=== PATIENT | male | born 1995 | race Caucasian/White ===

== ENCOUNTER 2022-11-25 06:27 | Outpatient (OUT) | payer OTHER, SELFPAY ==
[2022-11-25 06:56] LABS: Albumin Level 3.9 g/dL (3.4-5.0); Anion Gap 12.5; BUN Creatinine Ratio 15.7; Calcium 8.8 mg/dL (8.5-10.1); Carbon Dioxide 32.9 mmol/L (21.0-32.0); Chloride 96 mmol/L (98-107); Estimated GFR (African America >60 (>=60); Estimated GFR (Non-African Ame >60 (>=60); Glucose 138 mg/dL (74-106); Magnesium 1.1 mg/dL (1.8-2.4); Sodium 139 mmol/L (136-145)
[2022-11-25 14:24] LABS: Potassium 2.4 mmol/L (3.5-5.1)
== END 2022-11-25 06:28 | disposition home or self-care (01) ==
LOC: LAB 06:31
PROVIDERS: PCP Internal Medicine; Visit Provider Internal Medicine
DX: E83.42 Hypomagnesemia (principal); E87.6 Hypokalemia
CPT/HCPCS: 36415; 80069; 83735

== ENCOUNTER 2023-06-15 20:56 | Emergency (ER) | payer OTHER, SELFPAY ==
[2023-06-15 20:59] VITALS: BP 148/97; PULSE 87; RESP 18; TEMP 36.6; O2SAT 95; BMI 33.2
--- NOTE | 2023-06-15 22:01 | XR_ITS ---
The [address] [address] Patient Name: SOFIE MENDOZA MRN: [id number] date: 1995 Sex: M Assigned Patient Location: ER Current Patient Location: ER Accession/Order Number: [id number] Exam Date: 06/15/2023 20:31 Report Date: 06/15/2023 22:48 At the request of: JEREMIAH MARKER Procedure: XR shoulder RT min 2V Exam: Radiographs: XR cervical spine 2-3V, XR shoulder RT min 2V Reason for exam: neck pain Comparison: None XR/XR shoulder RT min 2V IMPRESSION: Unremarkable right shoulder radiographs. No radiographically evident cervical spine fractures or malalignment. Preserved intervertebral disc heights. Remainder unremarkable. Electronically authenticated by: JOSE MACIAS Date: 06/15/2023 22:48
--- NOTE | 2023-06-15 22:01 | XR_ITS ---
[address] [address] Patient Name: SOFIE MENDOZA MRN: [id number] date: 1995 Sex: M Assigned Patient Location: ER Current Patient Location: ER Accession/Order Number: [id number] Exam Date: 06/15/2023 20:31 Report Date: 06/15/2023 22:48 At the request of: JEREMIAH MARKER Procedure: XR cervical spine 2-3V Exam: Radiographs: XR cervical spine 2-3V, XR shoulder RT min 2V Reason for exam: neck pain Comparison: None XR/XR cervical spine 2-3V IMPRESSION: Unremarkable right shoulder radiographs. No radiographically evident cervical spine fractures or malalignment. Preserved intervertebral disc heights. Remainder unremarkable. Electronically authenticated by: JOSE MACIAS Date: 06/15/2023 22:48
[2023-06-15] MEDS: ORPHENADRINE 60 MG/ 2 ML VIAL IM (22:21)
[2023-06-15] MEDS: KETOROLAC TROMETHAMINE 60 MG/2 ML VIAL IM (22:21)
--- NOTE | 2023-06-15 22:49 | ED.GENADUL1 ---
HPI - General Adult General Chief complaint: Extremity Problem, Nontraumatic Stated complaint: Upper Pain Time Seen by Provider: 06/15/23 21:17 Source: patient Mode of arrival: walk-in Limitations: no limitations History of Present Illness HPI narrative: This 27-year-old male who is right-hand dominant and works at a local [employer] presents for evaluation of right upper anterior neck and shoulder area pain. He has had similar pain in the past. He denies any injury. He has no weakness numbness or tingling in the right upper extremity. He has full range of motion. Symptoms have been present for a while but are worse today. He denies any neck pain or stiffness. He has not had any fever. He has no chest pain or shortness of breath. He points to the acromioclavicular area as area of greatest pain and states the pain he ate from this area up into his lower anterior neck area. Related Data Home Medications Medication Instructions Recorded Confirmed amiloride 5 mg tablet mg 06/15/23 magnesium chloride 70 mg mg PO 06/15/23 (magnesium chloride) tablet,delayed release potassium chloride 20 mEq meq PO 06/15/23 tablet,extended release Allergies Allergy/AdvReac Type Severity Reaction Status Date / Time No Known Drug Allergies Allergy Verified 06/15/23 21:03 Review of Systems ROS Status of ROS 10 or more systems reviewed and unremarkable except as noted in history and below [facility] Social History Smoking status: Never smoker Exam Narrative Exam Narrative: Nurses note and vital signs reviewed and patient is not hypoxic. Blood pressure is mildly elevated at 148/97 General: The patient appears well and in no apparent distress. Patient is resting comfortably on cart. Skin: Warm, dry, no pallor noted. There is no rash noted. Head: Normocephalic, atraumatic Eye: Normal conjunctiva, no drainage, EOMI. PERRL Ears, Nose, Mouth, and Throat: oral mucosa is moist. Neck: Supple, no meningeal signs, tenderness in right upper chest wall and AC joint area without crepitus or bony abnormality, no pulsatile neck masses or lymphadenopathy Cardiovascular: Regular Rate and Rhythm S1S2, pulses are brisk and equal bilaterally Respiratory: Patient is in no distress, no accessory muscle use, lungs are clear to auscultation, no wheezing, rales or rhonchi Back: non-tender, no CVA tenderness bilaterally to percussion. GI: Normal bowel sounds, no tenderness to palpation, no masses appreciated. No rebound, guarding, or rigidity noted. 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 strength is intact, able to approximate thumb and all fingers Psychiatric: Cooperative Constitutional Vital Signs, click to edit/add: Last Vital Signs Temp 98 F 06/15/23 20:59 Pulse 87 06/15/23 20:59 Resp 18 06/15/23 20:59 BP 148/97 H 06/15/23 20:59 Pulse Ox 95 06/15/23 20:59 O2 Del Method Room Air 06/15/23 20:59 Course Vital Signs Vital signs: Vital Signs Temperature 98 F 06/15/23 20:59 Pulse Rate 87 06/15/23 20:59 Respiratory Rate 18 06/15/23 20:59 Blood Pressure 148/97 H 06/15/23 20:59 Pulse Oximetry 95 06/15/23 20:59 Oxygen Delivery Method Room Air 06/15/23 20:59 Temperature 98 F 06/15/23 20:59 Pulse Rate 87 06/15/23 20:59 Respiratory Rate 18 06/15/23 20:59 Blood Pressure 148/97 H 06/15/23 20:59 Pulse Oximetry 95 06/15/23 20:59 Oxygen Delivery Method Room Air 06/15/23 20:59 Medical Decision Making MDM Narrative Medical decision making narrative: This 27-year-old male who is right-hand dominant presents for evaluation of pain in his right acromioclavicular area, anterior shoulder and lower neck area. He has had similar pain in the past. The pain has been present for a while but became worse today. He denies any injury. He has no neurologic symptoms including weakness numbness or tingling associated with this discomfort. He is medicated in emergency department with IM Toradol and IM Norflex and is feeling better.. X-rays of the cervical spine and right shoulder area were ordered and are negative for acute findings. He will be discharged home with Rx for Flexeril and ibuprofen and requests a note for work. Medical Records Medical records narrative: [facility] [address] [place] [address] XRay Report Signed Patient: SOFIE MENDOZA MR#: [id number] : 1995 Acct:[id number] Age/Sex: 27 / M ADM Date: 06/15/23 Loc: ER Attending Dr: Ordering Physician: Mary Landrum Date of Service: 06/15/23 Procedure(s): XR cervical spine 2-3V Accession Number(s): [id number] cc: Shaikh Earl Alvarez; Mary Marker~ [facility] [place] [id number] Patient Name: SOFIE MENDOZA MRN: [facility]:[id number] date: 1995 Sex: M Assigned Patient Location: ER Current Patient Location: ER Accession/Order Number: [id number] Exam Date: 06/15/2023 20:31 Report Date: 06/15/2023 22:48 At the request of: MARY MARKER Procedure: XR cervical spine 2-3V Exam: Radiographs: XR cervical spine 2-3V, XR shoulder RT min 2V Reason for exam: neck pain Comparison: None XR/XR cervical spine 2-3V IMPRESSION: Unremarkable right shoulder radiographs. No radiographically evident cervical spine fractures or malalignment. Preserved intervertebral disc heights. Remainder unremarkable. Electronically authenticated by: JOSE MACIAS Date: 06/15/2023 22:48 [place] [address] XRay Report Signed Patient: SOFIE MENDOZA MR#: [id number] : 1995 Acct:[id number] Age/Sex: 27 / M ADM Date: 06/15/23 Loc: ER Attending Dr: Ordering Physician: Mary Landrum Date of Service: 06/15/23 Procedure(s): XR shoulder RT min 2V Accession Number(s): [id number] cc: Shaikh Earl Alvarez; Mary Marker~ [facility] [place] [id number] Patient Name: SOFIE MENDOZA MRN: [id number] date: 1995 Sex: M Assigned Patient Location: ER Current Patient Location: ER Accession/Order Number: [id number] Exam Date: 06/15/2023 20:31 Report Date: 06/15/2023 22:48 At the request of: MARY MARKER Procedure: XR shoulder RT min 2V Exam: Radiographs: XR cervical spine 2-3V, XR shoulder RT min 2V Reason for exam: neck pain Comparison: None XR/XR shoulder RT min 2V IMPRESSION: Unremarkable right shoulder radiographs. No radiographically evident cervical spine fractures or malalignment. Preserved intervertebral disc heights. Remainder unremarkable. Discharge Plan Discharge Chief Complaint: Extremity Problem, Nontraumatic Clinical Impression: Muscle strain of shoulder region Patient Disposition: Home, Self-Care Time of Disposition Decision: 23:09 Condition: Good Prescriptions / Home Meds: No Action amiloride 5 mg tablet potassium chloride 20 mEq tablet extended release PO magnesium chloride 70 mg tablet,delayed release (DR/EC) PO Instructions: Muscle Strain (ED), Rotator Cuff Injury Exercises (DC) Stand Alone Forms: Portal Instructions Referrals: Shaikh Alvarez MD [Primary Care Provider] - 1 week
== END 2023-06-15 23:58 | disposition home or self-care (01) ==
PROVIDERS: Emergency Provider Emergency Medicine; PCP Internal Medicine
DX: S46.911A Strain of unspecified muscle, fascia and tendon at shoulder and upper arm level, right arm, initial encounter (principal); X58.XXXA Exposure to other specified factors, initial encounter
CPT/HCPCS: 72040; 73030; 96372; 99284; J1885; J2360

== ENCOUNTER 2023-06-21 14:25 | Outpatient (OUT) | payer OTHER, SELFPAY ==
--- NOTE | 2023-06-21 14:28 | MR_ITS ---
The [place] [id number] Patient Name: SOFIE MENDOZA MRN: [id number] date: 1995 Sex: M Assigned Patient Location: MRI Current Patient Location: MRI Accession/Order Number: [id number] Exam Date: 06/21/2023 14:38 Report Date: 06/21/2023 15:35 At the request of: SHAIKH STANFORD Procedure: MR shoulder RT wo con MR shoulder RT wo con, 06/21/2023 2:38 PM EST INDICATION: acute pain of shoulder M25.511 COMPARISON: X-ray of the right shoulder dated 06/15/2023 TECHNIQUE: Multiplanar and multisequential MR images of the right shoulder were obtained without contrast. FINDINGS: There are mild hypertrophic degenerative changes of AC joint. There is no os acromiale. No Hill-Sachs is noted. No acute fracture or dislocation is noted. Enthesopathy cysts within the lesser tuberosity are noted. The quadrilateral space and supraspinous notch are unremarkable. The T2 prolongation within the insertional portions of infraspinatus may suggest tendinosis. The long head of biceps is unremarkable. The teres minor and supraspinatus and subscapularis are unremarkable. No fatty muscle atrophy is noted. The labrum shows no significant abnormality. There is trace intra articular joint effusion. MR/MR shoulder RT wo con IMPRESSION: Mild insertional tendinosis of infraspinatus. No high-grade tear. Electronically authenticated by: STAR CERDA Date: 06/21/2023 15:35
--- OUTSIDE RECORDS SUMMARY | 2023-06-21 14:32 | XMS_ITS | CCD ---
Author Name Unknown Address [address] [place] [address] Organization [facility] Care Team Providers Care Instrument Repairer Helper Name Role Phone OSINOWO, OSIYEMI Unavailable Unavailable OSINOWO, OSIYEMI Unavailable Unavailable NADAUD, ESTUARDO Unavailable Unavailable NADAUD, ESTUARDO Unavailable Unavailable MAVERICK, MARBELLA Unavailable Unavailable MAVERICK, MARBELLA Unavailable Unavailable DAQUAN, GRICEL Unavailable Unavailable DAQUAN, GRICEL Unavailable Unavailable Andra, Marcelino Unavailable Unavailable Unavailable Chuck, Nida A Admitting Unavailable Chuck, Nida A Attending Unavailable Chuck TRANSPORTATION DIRECTOR-C, Nida A Primary Care Unavailable Chuck, Nida A Attending Unavailable Chuck TRANSPORTATION DIRECTOR-C, Nida A Primary Care Unavailable Chuck, Nida A Admitting Unavailable Chuck, Nida A Attending Unavailable Chuck TRANSPORTATION DIRECTOR-C, Nida A Primary Care Unavailable Chuck, Nida A Attending Unavailable Chuck, Nida A Admitting Unavailable Chuck TRANSPORTATION DIRECTOR-C, Nida A Primary Care Unavailable ANDRA, MARCELINO Admitting Unavailable ANDRA, MARCELINO Attending Unavailable CHUCK, NIDA Primary Care Unavailable ANDRA, MARCELINO Consulting Unavailable FAWWAD, BURKS H Admitting Unavailable FAWWAD, BURKS H Attending Unavailable FAWWAD, BURKS H Primary Care Unavailable FAWWAD, BURKS H Consulting Unavailable ANDRA, MRACELINO Admitting Unavailable ANDRA, MARCELINO Attending Unavailable CHUCK, NIDA Primary Care Unavailable ANDRA, MARCELINO Consulting Unavailable ANDRA, MARCELINO Admitting Unavailable ANDRA, MARCELINO Attending Unavailable CHUCK, NIDA Primary Care Unavailable ANDRA, MARCELINO Consulting Unavailable CHUCK, NIDA Admitting Unavailable CHUCK, NIDA Attending Unavailable CHUCK, NIDA Primary Care Unavailable CHUCK, NIDA Consulting Unavailable CHUCK, NIDA Primary Care Unavailable MARCELINO, DR ESTUARDO Marquez Admitting Unavailable MARCELINO, DR ESTUARDO Marquez Attending Unavailable DR ESTUARDO BENSON Consulting Unavailable CHUCK, NIDA Primary Care Unavailable SEBAS ., DR HALIMA Martell Admitting Unavailable SEBAS ., DR HALIMA Martell Attending Unavailable MINDY FAN Consulting Unavailable ONIEL WILSON Consulting Unavailable MARCELINO SILVERMAN Admitting Unavailable MARCELINO SILVERMAN Attending Unavailable CHUCK, NIDA Primary Care Unavailable Asaad, Imad Unavailable SHAIKH ALVAREZ Attending Unavailable Shaikh Alvarez MD Primary Care Provider Medications Current Medications Medication Drug Class(es) Dates Sig (Normalized) Sig (Original) aMILoride hydrochloride 5 mg oral tablet (13 sources) Potassium-sparing Diuretic take 2 tablets by mouth in the morning aMILoride (Midamor) 5 MG tablet Take 10 mg by mouth in the morning and 10 mg before bedtime. 0 Active take 2 tablets by mouth every tw elve hours magnesium chloride 535 mg delayed release oral tablet (4 sources) Start: 11-26-2022 take 2 tablets by mouth in the morning Slow Magnesium/Calcium 70-117 MG tablet delayed-release Take 2 tablets by mouth in the morning and 2 tablets before bedtime. 0 11/26/2022 Active Start: 12-25-2018 Slow Magnesium /Calcium 70-117 MG 2 Tablet twice daily Orally bid for 90 day(s) Dec, Active Start: 12-25-2018 potassium chloride 20 meq extended release oral tablet (13 sources) Start: 11-25-2022 potassium chlo ride CR (K-Tab) 20 MEQ ER tablet take 6 tablets by [facility] every twelve hours Potassium Chloride ER 20 MEQ 6 tablets Orally bid for 90 day(s) Active take 6 tablets by [facility] every twelve hours predniSONE 20 mg oral tablet (2 sources) Start: 06-16-2023 End: 06-25-2023 take 1 tablet by mouth three times daily, then take 1 tablet by mouth twice daily, then take 1 tablet by mouth once daily predniSONE (Deltasone) 20 MG tablet Indications: Acute pain of right shoulder Take 1 tablet (20 mg) by mouth 3 (three) times a day for 5 days, THEN 1 tablet (20 mg) 2 (two) times a day for 2 days, THEN 1 tablet (20 mg) Daily for 2 days. 21 tablet 0 06/16/2023 06/25/2023 Active Slow Magnesium/Calcium 70-117 MG (7 sources) Start: 12-25-2018 Slow Magnesium /Calcium 70-117 MG 2 Tablet twice daily Orally bid for 90 day(s) Dec, Active Slow Magnesium/C alcium 70-117 MG 2 Tablet twice daily Orally bid for 90 day(s) Active Completed/Discontinued Medications Medication Drug Class(es) Dates Sig (Normalized) Sig (Original) magnesium oxide 400 mg oral capsule (2 sources) Magnesium Oxide 400 MG CAPS TAKE 2 CAPSULE Twice daily Quantity: 0 Refills: 0 Ordered: 02-Dec-2021 DO Active Toradol 30 mg/ml (7 sources) Start: 02-12-2020 Toradol 30 mg/ml Feb, 30 mg Triamcinolone (7 sources) Corticosteroid Start: 02-12-2020 KENALOG - 10 mg Feb, 40 mg Problems Active Problems Problem Classification Problem Date Documented Da te Episodic/Chronic Abdominal pain (2 sources) Abdominal pain; Translations: [Unspecified abdominal pain] Episodic Diseases of white blood cells (16 sources) Leukocytosis; Translations: [Elevated white blood cell count, unspecified] Onset: 03-25-2021 Resolved: 11-11-2021 Chronic Fluid and electrolyte disorders (11 sources) Hypokalemia; Translations: [Hypokalemia] Onset: 03-25-2021 Resolved: 11-11-2021 Episodic Other diseases of kidney and ureters (5 sources) 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; Translations: [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] Onset: 06-07-2017 Chronic Other gastrointestinal disorders (2 sources) Diarrhea; Translations: [Diarrhea, unspecified] Episodic Other liver diseases (2 sources) Raised cardiac enzyme or marker; Translations: [Other nonspecific abnormal serum enzyme levels] Episodic Other non-traumatic joint disorders (4 sources) Pain in right shoulder; Translations: [Pain in joint, shoulder region] Onset: 06-16-2023 06-16-2023 Episodic Other nutritional; endocrine; and metabolic disorders (11 sources) Gitelman syndrome; 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 Other nutritional; endocrine; and metabolic disorders (9 sources) Hypomagnesemia; Translations: [HYPOMAGNESEMIA] Onset: 03-25-2021 Resolved: 11-11-2021 Chronic Other nutritional; endocrine; and metabolic disorders (2 sources) Obesity; Translations: [Obesity, unspecified] Chronic Other nutritional; endocrine; and metabolic disorders (2 sources) Hypomagnesemia; 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 Other nutritional; endocrine; and metabolic disorders (2 sources) Disorder of magnesium metabolism; Translations: [Disorders of magnesium metabolism, 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 06-16-2023 Chronic Other screening for suspected conditions (not mental disorders or infectious disease) (4 sources) Encounter for screening for diabetes mellitus; Translations: [ENCOUNTER FOR SCREENING FOR DM] Onset: 06-23-2022 Episodic Other upper respiratory disease (2 sources) Seasonal allergic rhinitis; Translations: [Other seasonal allergic rhinitis] Onset: 06-16-2023 06-16-2023 Chronic Unclassified (1 source) Unknown / UNK(Unknown) Onset: 07-22-2017 Past or Other Problems Problem Classification Problem Date Documented Da te Episodic/Chronic Intestinal infection (2 sources) 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, biovar cholerae; Translations: [CHOLERA DUE TO VIBRIO CHOLERAE 01, BIOVAR CHOLERAE] Onset: 07-22-2017 Episodic Nausea and vomiting (1 source) Nausea with vomiting, unspecified; Translations: [NAUSEA WITH VOMITING UNSPECIFIED] Onset: 01-28-2022 Episodic Nonspecific chest pain (6 sources) Atypical chest pain; Translations: [Other chest pain] Onset: 11-08-2021 Episodic Other aftercare (1 source) Other correction (current) drug therapy; Translations: [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 DRUG THERAPY] Onset: 10-14-2021 Episodic Other liver diseases (1 source) Abnormal levels of other serum enzymes; Translations: [ABNORMAL LEVELS OTHER SERUM ENZYMES] Onset: 11-11-2021 Episodic Other male genital disorders (1 source) Male infertility, unspecified; Translations: [MALE INFERTILITY UNSPECIFIED] Onset: 01-28-2022 Episodic Residual codes; unclassified (1 source) Procedure and treatment not carried out because of patient's decision for other reasons; Translations: [PROC AND TX NOT CARRIED OUT PT OTH RSN] Onset: 11-11-2021 Episodic Skin and subcutaneous tissue infections (4 sources) Pilonidal cyst without abscess; Translations: [PILONIDAL CYST WITHOUT ABSCESS] Onset: 10-13-2021 Episodic Unclassified (2 sources) Never smoked tobacco; Translations: [Never a smoker] Results Test Name Value Interpretation Reference Range Facility Magnesiumon 11-25-2022 Magnesium [Mass/Vol] 1.1 mg/dL [facility] Other Renal Function Panelon 11-25 Albumin [Mass/Vol] 3.9 g/dL [facility] Other Calcium [Mass/Vol] 8.8 mg/dL [facility] Other Chloride [Moles/Vol] 96 mmol/L [facility] Other CO2 [Moles/Vol] 32.9 mmol/L [facility] Other Creatinine [Mass/Vol] 0.83 mg/dL [facility] Other Glucose [Mass/Vol] 138 mg/dL [facility] Other Phosphate [Mass/Vol] 4.0 mg/dL [facility] Other Potassium [Moles/Vol] 2.4 mmol/L [facility] Other Sodium [Moles/Vol] 139 mmol/L [facility] Other Urea nitrogen [Mass/Vol] 13.0 mg/dL [facility] Other Renal Function Panel [facility] Other Renal Function Panel >60 [facility] Other GLYCOHEMOGLOBIN A1Con 2022 ADA RECOMMENDATION SEE BELOW Normal [facility] Comment on above: Result Comment: ADA RECOMMENDED LIMIT 4.0 - 6.0 ADA THERAPEUTIC TARGET < 7.0 ACTION SUGGESTED > 7.0 Performed By: #### A 1C #### [facility] [address] [place] [address] Dr. Jossue Centeno Glucose [Mass/Vol] 108 mg/dL Normal [facility] Comment on above: Performed By: #### A 1C #### [facility] [address] [place] [address] Dr. Jossue Centeno HbA1c (Bld) [Mass fraction] 5.4 % Normal 4.5-6.2 [facility] Comment on above: Performed By: #### A 1C #### [facility] [address] [place] [address] Dr. Jossue Centeno Outside Recordson 01-28-2022 Outside Records [id number] [id number] Normal [facility] CBC AUTO DIFFon 01-27-2022 BASO # 0.1 103/ul Normal 0.0-0.1 [facility] Comment on above: Performed By: #### C BC #### [facility] [address] [place] [address] Dr. Jossue Centeno Basophils/100 WBC (Bld) 0.8 % Normal 0.2-2.0 [facility] Comment on above: Performed By: #### C BC #### [facility] [address] [place] [address] Dr. Jossue Centeno EO # 0.6 103/ul Normal 0.0-0.7 [facility] Comment on above: Performed By: #### C BC #### [facility] [address] [place] [address] Dr. Jossue Centeno Eosinophils/100 WBC (Bld) 5.8 % Normal 0.9-7.0 [facility] Comment on above: Performed By: #### C BC #### [facility] [address] [place] [address] Dr. Jossue Centeno Erythrocyte distribution width (RBC) [Ratio] 12.4 % Normal 11.0-15.0 [facility] Comment on above: Performed By: #### C BC #### [facility] [address] [place] [address] Dr. Jossue Centeno Hematocrit (Bld) [Volume fraction] 47.4 % Normal 42.0-54.0 [facility] Comment on above: Performed By: #### C BC #### [facility] [address] [place] [address] Dr. Jossue Centeno Hemoglobin (Bld) [Mass/Vol] 16.7 g/dL Normal 14.0-18.0 [facility] Comment on above: Performed By: #### C BC #### [facility] [address] [place] [address] Dr. Jossue Centeno IG # 0.02 10e3/ul Normal 0.00-0.03 [facility] Comment on above: Performed By: #### C BC #### [facility] [address] [place] [address] Dr. Jossue Centeno IG % 0.2 % Normal 0.0-0.5 [facility] Comment on above: Performed By: #### C BC #### [facility] [address] [place] [address] Dr. Jossue Centeno LYMPH # 2.2 103/ul Normal 1.2-3.8 [facility] Comment on above: Performed By: #### C BC #### [facility] [address] [place] [address] Dr. Jossue Centeno Lymphocytes/100 WBC (Bld) 23.1 % Normal 20.5-60.0 [facility] Comment on above: Performed By: #### C BC #### [facility] [address] [place] [address] Dr. Jossue Centeno MANUAL DIFF REQ NO Normal [facility] Comment on above: Performed By: #### C BC #### [facility] [address] [place] [address] Dr. Jossue Centeno MCH (RBC) [Entitic mass] 28.2 pg Normal 25.9-34.0 [facility] Comment on above: Performed By: #### C BC #### [facility] [address] [place] [address] Dr. Jossue Centeno MCHC (RBC) [Mass/Vol] 35.2 g/dL Normal 29.9-35.2 [facility] Comment on above: Performed By: #### C BC #### [facility] [address] [address] [address] Jossue Centeno MCV (RBC) [Entitic vol] 79.9 fL Critically low 80.0-94.0 [facility] Comment on above: Performed By: #### C BC #### [facility] [address] [address] [address] Jossue Centeno MONO # 0.7 103/ul Normal 0.3-0.8 [facility] Comment on above: Performed By: #### C BC #### [facility] [address] [address] [address] Jossue Centeno Monocytes/100 WBC (Bld) 7.6 % Normal 1.7-12.0 [facility] Comment on above: Performed By: #### C BC #### [facility] [address] [address] [address] Jossue Centeno NEUT # 5.9 103/ul Normal 1.4-6.5 [facility] Comment on above: Performed By: #### C BC #### [facility] [address] [address] [address] Jossue Centeno Neutrophils/100 WBC (Bld) 62.5 % Normal 43.0-75.0 [facility] Comment on above: Performed By: #### C BC #### [facility] [address] [address] [address] Jossue Centeno Platelet mean volume (Bld) [Entitic vol] 8.5 fL Critically low 9.5-13.5 [facility] Comment on above: Performed By: #### C BC #### [facility] [address] [address] [address] Jossue Centeno PLT 335 103/ul Normal 150-450 [facility] Comment on above: Performed By: #### C BC #### [facility] [address] [address] [address] Jossue Centeno RBC 5.93 106/ul Normal 4.70-6.10 [facility] Comment on above: Performed By: #### C BC #### [facility] [address] [place] [address] Dr. Jossue Centeno WBC 9.5 103/ul Normal 4.0-11.0 [facility] Comment on above: Performed By: #### C BC #### [facility] [address] [place] [address] Dr. Jossue Centeno MAGNESIUMon 01-27-2022 Magnesium [Mass/Vol] 1.5 mg/dL Critically low 1.8-2.4 [facility] Comment on above: Performed By: #### K #### [facility] [address] [place] [address] Dr. Jossue Centeno PROF 14(COMP METB)on 022 Albumin [Mass/Vol] 4.1 g/dL Normal 3.4-5.[address] [facility] Comment on above: Performed By: #### M G, CMP #### [facility] [address] [place] [address] Dr. Jossue Centeno Albumin/Globulin [Mass ratio] 1.0 {ratio} Normal [facility] Comment on above: Performed By: #### M G, CMP #### [facility] [address] [place] [address] Dr. Jossue Centeno ALP [Catalytic activity/Vol] 107 U/L Normal 46-116 [facility] Comment on above: Performed By: #### M G, CMP #### [facility] [address] [place] [address] Dr. Jossue Centeno ALT [Catalytic activity/Vol] 50 U/L Normal 16-63 [facility] Comment on above: Performed By: #### M G, CMP #### [facility] [address] [place] [address] Dr. Jossue Centeno Anion gap [Moles/Vol] 12.1 mmol/L Normal [facility] Comment on above: Performed By: #### M G, CMP #### [facility] [address] [place] [address] Dr. Jossue Centeno AST [Catalytic activity/Vol] 25 U/L Normal 15-37 [facility] Comment on above: Performed By: #### M G, CMP #### [facility] [address] [address] [address] Jossue Centeno Bilirubin [Mass/Vol] 0.6 mg/dL Normal 0.2-1.0 [facility] Comment on above: Performed By: #### M G, CMP #### [facility] [address] [place] [address] Dr. Jossue Centeno Calcium [Mass/Vol] 9.3 mg/dL Normal 8.5-10.[address] [facility] Comment on above: Performed By: #### M G, CMP #### [facility] [address] [address] [address] Jossue Centeno Chloride [Moles/Vol] 97 mmol/L Critically low 98-107 [facility] Comment on above: Performed By: #### M G, CMP #### [facility] [address] [place] [address] Dr. Jossue Centeno CO2 [Moles/Vol] 32.1 mmol/L Critically high 21.0-32.0 [facility] Comment on above: Performed By: #### M G, CMP #### [facility] [address] [place] [address] Dr. Jossue Centeno Creatinine [Mass/Vol] 0.76 mg/dL Normal 0.70-1.30 [facility] Comment on above: Performed By: #### M G, CMP #### [facility] [address] [place] [address] Dr. Jossue Centeno EGFR-AF MALDIVIAN >60 Normal >=60 [facility] Comment on above: Performed By: #### M G, CMP #### [facility] [address] [place] [address] Dr. Jossue Centeno EGFR-NON AF MALDIVIAN >60 Normal >=60 [facility] Comment on above: Performed By: #### M G, CMP #### [facility] [address] [place] [address] Dr. Jossue Centeno Globulin (S) [Mass/Vol] 4.1 g/dL Normal [facility] Comment on above: Performed By: #### M G, CMP #### [facility] [address] [address] [address] Jossue Centeno Glucose [Mass/Vol] 92 mg/dL Normal 74-[address] [facility] Comment on above: Performed By: #### M G, CMP #### [facility] [address] [address] [address] Jossue Centeno Potassium [Moles/Vol] 3.2 mmol/L Critically low 3.5-5.1 [facility] Comment on above: Performed By: #### M G, CMP #### [facility] [address] [address] [address] Jossue Centeno Protein [Mass/Vol] 8.2 g/dL Normal 6.4-8.2 [facility] Comment on above: Performed By: #### M G, CMP #### [facility] [address] [address] [address] Jossue Centeno Sodium [Moles/Vol] 138 mmol/L Normal 136-145 [facility] Comment on above: Performed By: #### M G, CMP #### [facility] [address] [address] [address] Jossue Centeno Urea nitrogen [Mass/Vol] 11.0 mg/dL Normal 7.0-18.0 [facility] Comment on above: Performed By: #### M G, CMP #### [facility] [address] [address] [address] Jossue Centeno Urea nitrogen/Creatinine [Mass ratio] 14.5 mg/mg Normal [facility] Comment on above: Performed By: #### M G, CMP #### [facility] [address] [address] [address] Jossue Centeno Outside Recordson 12-08-2021 Outside Records [id number] [id number] Normal [facility] Office Visit (Cardiology)on 12-02-2021 Follow-up visit Diagnoses/Problems Assessed Atypical chest pain (786.59) (R07.89) Cardiac enzymes elevated (790.5) (R74.8) Hypokalemia (276.8) (E87.6) Hypomagnesemia (275.2) (E83.42) Class 1 obesity with body mass index (BMI) of 31.0 to 31.9 in adult (278.00,V85.31) (E66.9,Z68.31) Never a smoker Orders Atypical chest pain Echocardiogram; Status:Hold For - Scheduling,Retrospe ctive Authorization; Requested for:[id number]; Atypical chest pain, Cardiac enzymes elevated, Hypokalemia, Hypomagnesemia Cardiac Stress Test; Status:Hold For - Scheduling,Retrospe ctive Authorization; Requested for:[id number]; Class 1 obesity with body mass index (BMI) of 31.0 to 31.9 in adult Healthy Weight Tips; Status:Complete - Retrospective Authorization; Done: [id number] SocHx: Never a smoker Tobacco Use Screening; Status:Complete; Done: [id number] Tobacco Use Screening; Status:Complete; Done: [id number] Tobacco Use Screening; Status:Complete; Done: [id number] Patient Instructions By signing my name below, I, IKellie RN, am scribing for and in the presence of, ,Scribe, attest that this documentation has been prepared under the direction and in the presence of. Please bring all medicines, vitamins, and herbal supplements with you when you come to the office. Prescriptions will not be filled unless you are compliant with your follow up appointments or have a follow up appointment scheduled as per instruction of your physician. Refills should be requested at the time of your visit. Chief Complaint WOOD HORN is being seen for a consultation for Chuck- elevated trop and CK. 26-year-old gentleman seen in cardiology consultation at the request of himself and family for further evaluation and management of isolated episode of atypical right-sided chest discomfort over November 09 associated with ER visit and subsequent isolated measurement of troponins which were elevated at 179. Patient was dehydrated, was hypokalemic as well, serum potassium of 2.4, creatinine 0.69 mildly elevated AST and ALT. ECG demonstrates normal sinus rhythm and is completely normal I have no emergency room notes from that visit on November 13. Notably, the patient's right sided, atypical chest discomfort was alleviated with rehydration and he was discharged. Patient otherwise has no positional chest discomfort denies any current chest discomfort is able to routinely perform daily activities without any problems. There is a family history of Gettleman's syndrome which is associated with hypokalemia and hypomagnesiumia. Patient does have a family history of coronary disease. He is currently on amiloride, magnesium oxide and potassium supplementation per nephrology he is not hypertensive has no thromboembolic, bleeding, stroke or previous coronary interventions and denies any congenital cardiac history. Impression/recommen dations: Highly doubt significant coronary disease however we will proceed with simple routine echocardiogram to assess structural function, routine treadmill stress test to rule out any true aerobic defects or ischemic defects and follow-up as needed Surgical History Problems Denied: History of Complete colonoscopy Current Meds Medication NameInstruction aMILoride HCl - 5 MG Oral TabletTAKE 2 TABLET Twice daily Magnesium Oxide 400 MG CAPSTAKE 2 CAPSULE Twice daily Potassium Chloride ER 20 MEQ Oral Tablet Extended ReleaseTAKE 6 TABLET Twice daily Allergies Medication No Known Drug Allergies Recorded By: Angie Castellanos; 12/02/2021 9:04:14 AM Social History Problems Daily caffeine consumption 1 can of pop daily. Never a smoker No illicit drug use Social alcohol use (V49.89) (Z78.9) Review of Systems Constitutional: not feeling tired. Cardiovascular: chest pain, but no intermittent leg claudication and as noted in HPI. Respiratory: no cough and no shortness of breath. Gastrointestinal: no change in bowel habits and no blood in stools. Integumentary: no skin rashes. Neurological: no seizures and no frequent falls. All other systems have been reviewed and are negative for complaint. Vitals Vital Signs Recorded: [id number] 09:05AMRecorded: [id number] 09:04AM Xkshyaig683, LUE, Zrkamfz777, RUE, Sitting Rqomijnrr46, LUE, Fwphday00, RUE, Sitting Heart Rate66, Apical Height5 ft 10 in Bhszbq425 lb BMI Worivwkxek79.14 kg/m2 BSA Calculated2.16 Tobacco Useb) No PHQ-2 #1. Over the last 2 weeks have you felt down, depressed or hopeless? (If yes, answer PHQ-9 below)No PHQ-2 #2. Over the last 2 weeks have you felt little interest or pleasure in doing things? (If yes, answer PHQ-9 below)No Falls Screening (Age 18+)c) Not medically indicated Physical Exam Constitutional: alert and in no acute distress. Neck: neck is supple, symmetric, trachea midline, no masses and no thyromegaly . Pulmonary: no increased work of breathing or signs of respiratory distress and lungs clear to auscultation. Cardiovascular: carotid pulses 2+ bilate (more content not included)... Normal [employer] Tobacco Screening.on 022 Adult depression screening assessment No [facility] Work Phone: Fall risk assessment c) Not medically indicated [facility] Work Phone: Tobacco use status CPHS b) No [facility] Work Phone: POTASSIUMon 11-16-2021 Potassium [Moles/Vol] 3.8 mmol/L Normal 3.5-5.1 [facility] Comment on above: Performed By: #### K #### [facility] [address] [place] [address] Dr. Jossue Centeno Lab - Other Lab Resultson Lab - Other Lab Results [id number] 09#[id number] Normal [facility] POTASSIUMon 11-12-2021 Potassium [Moles/Vol] 3.7 mmol/L Normal 3.5-5.1 [facility] Comment on above: Performed By: #### K #### [facility] [address] [place] [address] Dr. Jossue Centeno HEMOGRAM AND PLATELon 2021 Hematocrit (Bld) [Volume fraction] 45.0 % Normal 42.0-54.0 [facility] Comment on above: Performed By: #### H H #### [facility] [address] [address] [address] Jossue Centeno Hemoglobin (Bld) [Mass/Vol] 15.1 g/dL Normal 14.0-18.0 [facility] Comment on above: Performed By: #### H H #### [facility] [address] [place] [address] Dr. Jossue Centeno MCH (RBC) [Entitic mass] 27.9 pg Normal 25.9-34.0 [facility] Comment on above: Performed By: #### H H #### [facility] [address] [place] [address] Dr. Jossue Centeno MCHC (RBC) [Mass/Vol] 33.6 g/dL Normal 29.9-35.2 [facility] Comment on above: Performed By: #### H H #### [facility] [address] [place] [address] Dr. Jossue Centeno MCV (RBC) [Entitic vol] 83.2 fL Normal 80.0-94.0 [facility] Comment on above: Performed By: #### H H #### [facility] [address] [place] [address] Dr. Jossue Centeno PLT 299 103/ul Normal 150-450 [facility] Comment on above: Performed By: #### H H #### [facility] [address] [place] [address] Dr. Jossue Centeno RBC 5.41 106/ul Normal 4.70-6.10 [facility] Comment on above: Performed By: #### H H #### [facility] [address] [place] [address] Dr. Jossue Centeno WBC 10.2 103/ul Normal 4.0-11.0 [facility] Comment on above: Performed By: #### H H #### [facility] [address] [place] [address] Dr. Jossue Centeno MAGNESIUMon 11-11-2021 Magnesium [Mass/Vol] 1.3 mg/dL Critically low 1.8-2.4 [facility] Comment on above: Performed By: #### K #### [facility] [address] [place] [address] Dr. Jossue Centeno Outside Recordson 11-11-2021 Outside Records [id number] 03#[id number] Normal [facility] RENAL FUNCTION PANELon 11-11 Albumin [Mass/Vol] 4.1 g/dL Normal 3.4-5.[address] [facility] Comment on above: Performed By: #### K #### [facility] [address] [address] [address] Jossue Centeno Calcium [Mass/Vol] 9.4 mg/dL Normal 8.5-10.1 [facility] Comment on above: Performed By: #### K #### [facility] [address] [address] [address] Jossue Centeno Chloride [Moles/Vol] 102 mmol/L Normal 98-107 [facility] Comment on above: Performed By: #### K #### [facility] [address] [address] [address] Jossue Centeno CO2 [Moles/Vol] 30.7 mmol/L Normal 21.0-32.0 [facility] Comment on above: Performed By: #### K #### [facility] [address] [place] [address] Dr. Jossue Centeno Creatinine [Mass/Vol] 0.83 mg/dL Normal 0.70-1.30 [facility] Comment on above: Performed By: #### K #### [facility] [address] [address] [address] Jossue Centeno EGFR-AF MALDIVIAN >60 Normal >=60 [facility] Comment on above: Performed By: #### K #### [facility] [address] [place] [address] Dr. Jossue Centeno EGFR-NON AF MALDIVIAN >60 Normal >=60 [facility] Comment on above: Performed By: #### K #### [facility] [address] [address] [address] Jossue Centeno Glucose [Mass/Vol] 94 mg/dL Normal 74-106 [facility] Comment on above: Performed By: #### K #### [facility] [address] [address] [address] Jossue Centeno Phosphate [Mass/Vol] 2.4 mg/dL Critically low 2.6-4.7 [facility] Comment on above: Performed By: #### K #### [facility] [address] [address] [address] Jossue Centeno Potassium [Moles/Vol] 5.7 mmol/L Critically high 3.5-5.1 [facility] Comment on above: Performed By: #### K #### [facility] [address] [place] [address] Dr. Jossue Centeno Sodium [Moles/Vol] 139 mmol/L Normal 136-[address] [facility] Comment on above: Performed By: #### K #### [facility] [address] [place] [address] Dr. Jossue Centeno Urea nitrogen [Mass/Vol] 13.0 mg/dL Normal 7.0-18.0 [facility] Comment on above: Performed By: #### K #### [facility] [address] [place] [address] Dr. Jossue Centeno CARDIAC ESTUARDO 3-6on 2 CK [Catalytic activity/Vol] 536 U/L Critically high 39-308 [facility] Comment on above: Performed By: #### K #### [facility] [address] [place] [address] Dr. Jossue Centeno CK.MB [Mass/Vol] 3.09 ng/mL Normal <=3.60 [facility] Comment on above: Performed By: #### K #### [facility] [address] [place] [address] Dr. Jossue Centeno HSTROP 179.4 pg/mL Critically high 4.0-76.1 [facility] Comment on above: Result Comment: CUT- OFF POINTS HAVE BEEN ESTABLISHED BASED ON THE FOURTH UNIVERSAL DEFINITIONS OF MYOCARDIAL INFARCTION. THE UPPER REFERENCE LIMIT (URL) OF TROPONIN, DEFINED THE 99TH PERCENTILE OF cTnI DISTRIBUTION IN A REFERENCE POPULATION, HAS BEEN CONFIRMED THE DECISION THRESHOLD FOR VA DIAGNOSIS. TEST REPEATED. CRITICAL VALUE VERIFIED Performed By: #### K #### [facility] [address] [place] [address] Dr. Jossue Centeno CARDIAC ESTUARDO ADMITon 022 CK [Catalytic activity/Vol] 607 U/L Critically high 39-308 [facility] Comment on above: Performed By: #### B MARY QUEEN #### [facility] [address] [place] [address] Dr. Jossue Centeno CK.MB [Mass/Vol] 3.82 ng/mL Critically high <=3.60 [facility] Comment on above: Result Comment: TEST REPEATED. CRITICAL VALUE VERIFIED Performed By: #### B MARY QUEEN #### [facility] [address] [place] [address] Dr. Jossue Centeno HSTROP 187.8 pg/mL Critically high 4.0-76.1 [facility] Comment on above: Result Comment: CUT- OFF POINTS HAVE BEEN ESTABLISHED BASED ON THE FOURTH UNIVERSAL DEFINITIONS OF MYOCARDIAL INFARCTION. THE UPPER REFERENCE LIMIT (URL) OF TROPONIN, DEFINED THE 99TH PERCENTILE OF cTnI DISTRIBUTION IN A REFERENCE POPULATION, HAS BEEN CONFIRMED THE DECISION THRESHOLD FOR VA DIAGNOSIS. TEST REPEATED. CRITICAL VALUE VERIFIED Performed By: #### B MARY QUEEN #### [facility] [address] [place] [address] Dr. Jossue Centeno MELVI 100 ng/mL Critically high 16-96 [facility] Comment on above: Performed By: #### B MARY QUEEN #### [facility] [address] [place] [address] Dr. Jossue Centeno CBC AUTO DIFFon 11-08-2021 BASO # 0.1 103/ul Normal 0.0-0.1 [facility] Comment on above: Performed By: #### K #### [facility] [address] [place] [address] Dr. Jossue Centeno Basophils/100 WBC (Bld) 0.5 % Normal 0.2-2.0 [facility] Comment on above: Performed By: #### K #### [facility] [address] [place] [address] Dr. Jossue Centeno EO # 0.2 103/ul Normal 0.0-0.7 [facility] Comment on above: Performed By: #### K #### [facility] [address] [place] [address] Dr. Jossue Centeno Eosinophils/100 WBC (Bld) 1.3 % Normal 0.9-7.0 [facility] Comment on above: Performed By: #### K #### [facility] [address] [place] [address] Dr. Jossue Centeno Erythrocyte distribution width (RBC) [Ratio] 12.6 % Normal 11.0-15.0 [facility] Comment on above: Performed By: #### K #### [facility] [address] [place] [address] Dr. Jossue Centeno Hematocrit (Bld) [Volume fraction] 41.4 % Critically low 42.0-54.0 [facility] Comment on above: Performed By: #### K #### [facility] [address] [place] [address] Dr. Jossue Centeno Hemoglobin (Bld) [Mass/Vol] 14.5 g/dL Normal 14.0-18.0 [facility] Comment on above: Performed By: #### K #### [facility] [address] [place] [address] Dr. Jossue Centeno IG # 0.05 10e3/ul Critically high 0.00-0.03 [facility] Comment on above: Performed By: #### K #### [facility] [address] [place] [address] Dr. Jossue Centeno IG % 0.4 % Normal 0.0-0.5 [facility] Comment on above: Performed By: #### K #### [facility] [address] [place] [address] Dr. Jossue Centeno LYMPH # 1.6 103/ul Normal 1.2-3.8 [facility] Comment on above: Performed By: #### K #### [facility] [address] [place] [address] Dr. Jossue Centeno Lymphocytes/100 WBC (Bld) 12.4 % Critically low 20.5-60.0 [facility] Comment on above: Performed By: #### K #### [facility] [address] [place] [address] Dr. Jossue Centeno MANUAL DIFF REQ NO Normal [facility] Comment on above: Performed By: #### K #### [facility] [address] [place] [address] Dr. Jossue Centeno MCH (RBC) [Entitic mass] 28.3 pg Normal 25.9-34.0 [facility] Comment on above: Performed By: #### K #### [facility] [address] [place] [address] Dr. Jossue Centeno MCHC (RBC) [Mass/Vol] 35.0 g/dL Normal 29.9-35.2 [facility] Comment on above: Performed By: #### K #### [facility] [address] [place] [address] Dr. Jossue Centeno MCV (RBC) [Entitic vol] 80.7 fL Normal 80.0-94.0 [facility] Comment on above: Performed By: #### K #### [facility] [address] [place] [address] Dr. Jossue Centeno MONO # 0.9 103/ul Critically high 0.3-0.8 [facility] Comment on above: Performed By: #### K #### [facility] [address] [place] [address] Dr. Jossue Centeno Monocytes/100 WBC (Bld) 6.9 % Normal 1.7-12.0 [facility] Comment on above: Performed By: #### K #### [facility] [address] [place] [address] Dr. Jossue Centeno NEUT # 10.3 103/ul Critically high 1.4-6.5 [facility] Comment on above: Performed By: #### K #### [facility] [address] [place] [address] Dr. Jossue Centeno Neutrophils/100 WBC (Bld) 78.5 % Critically high 43.0-75.0 [facility] Comment on above: Performed By: #### K #### [facility] [address] [place] [address] Dr. Jossue Centeno Platelet mean volume (Bld) [Entitic vol] 9.5 fL Normal 9.5-13.5 [facility] Comment on above: Performed By: #### K #### [facility] [address] [place] [address] Dr. Jossue Centeno PLT 306 103/ul Normal 150-450 [facility] Comment on above: Performed By: #### K #### [facility] [address] [place] [address] Dr. Jossue Centeno RBC 5.13 106/ul Normal 4.70-6.10 [facility] Comment on above: Performed By: #### K #### [facility] [address] [place] [address] Dr. Jossue Centeno WBC 13.1 103/ul Critically high 4.0-11.0 [facility] Comment on above: Performed By: #### K #### [facility] [address] [place] [address] Dr. Jossue Centeno LIVER PROFILEon 11-08-2021 Albumin [Mass/Vol] 3.8 g/dL Normal 3.4-5.[address] [facility] Comment on above: Performed By: #### L IVER #### [facility] [address] [place] [address] Dr. Jossue Centeno Albumin/Globulin [Mass ratio] 1.1 {ratio} Normal [facility] Comment on above: Performed By: #### L IVER #### [facility] [address] [place] [address] Dr. Jossue Centeno ALP [Catalytic activity/Vol] 91 U/L Normal 46-116 [facility] Comment on above: Performed By: #### L IVER #### [facility] [address] [place] [address] Dr. Jossue Centeno ALT [Catalytic activity/Vol] 69 U/L Critically high 16-63 [facility] Comment on above: Performed By: #### L IVER #### [facility] [address] [place] [address] Dr. Jossue Centeno AST [Catalytic activity/Vol] 40 U/L Critically high 15-37 [facility] Comment on above: Performed By: #### L IVER #### [facility] [address] [place] [address] Dr. Jossue Centeno BILI, CONJUGATED 0.1 mg/dL Normal 0.0-0.2 [facility] Comment on above: Performed By: #### L IVER #### [facility] [address] [place] [address] Dr. Jossue Centeno Bilirubin [Mass/Vol] 0.6 mg/dL Normal 0.2-1.0 [facility] Comment on above: Performed By: #### L IVER #### [facility] [address] [place] [address] Dr. Jossue Centeno Globulin (S) [Mass/Vol] 3.4 g/dL Normal [facility] Comment on above: Performed By: #### L IVER #### [facility] [address] [place] [address] Dr. Jossue Centeno Protein [Mass/Vol] 7.2 g/dL Normal 6.4-8.2 [facility] Comment on above: Performed By: #### L IVER #### [facility] [address] [place] [address] Dr. Jossue Centeno PROF CHEM 8 (BAS METB)on Anion gap [Moles/Vol] 10.3 mmol/L Normal [facility] Comment on above: Performed By: #### B MARY QUEEN #### [facility] [address] [place] [address] Dr. Jossue Centeno Calcium [Mass/Vol] 8.9 mg/dL Normal 8.5-10.1 [facility] Comment on above: Performed By: #### B MARY QUEEN #### [facility] [address] [place] [address] Dr. Jossue Centeno Chloride [Moles/Vol] 97 mmol/L Critically low 98-107 [facility] Comment on above: Performed By: #### B MARY QUEEN #### [facility] [address] [place] [address] Dr. Jossue Centeno CO2 [Moles/Vol] 34.0 mmol/L Critically high 21.0-32.0 [facility] Comment on above: Performed By: #### MARY Etienne MP #### [facility] [address] [place] [address] Dr. Jossue Centeno Creatinine [Mass/Vol] 0.89 mg/dL Normal 0.70-1.30 [facility] Comment on above: Performed By: #### B MARY QUEEN #### [facility] [address] [place] [address] Dr. Jossue Centeno EGFR-AF MALDIVIAN >60 Normal >=60 [facility] Comment on above: Performed By: #### B MARY QUEEN #### [facility] [address] [address] [address] Jossue Centeno EGFR-NON AF MALDIVIAN >60 Normal >=60 [facility] Comment on above: Performed By: #### B MARY QUEEN #### [facility] [address] [place] [address] Dr. Jossue Centeno Glucose [Mass/Vol] 98 mg/dL Normal 74-106 [facility] Comment on above: Performed By: #### B MARY QUEEN #### [facility] [address] [place] [address] Dr. Jossue Centeno Potassium [Moles/Vol] 2.4 mmol/L Critically low 3.5-5.1 [facility] Comment on above: Result Comment: TEST REPEATED. CRITICAL VALUE VERIFIED Performed By: #### B MARY QUEEN #### [facility] [address] [place] [address] Dr. Jossue Centeno Sodium [Moles/Vol] 139 mmol/L Normal 136-145 [facility] Comment on above: Performed By: #### B MARY QUEEN #### [facility] [address] [place] [address] Dr. Jossue Centeno Urea nitrogen [Mass/Vol] 14.0 mg/dL Normal 7.0-18.0 [facility] Comment on above: Performed By: #### B MARY QUEEN #### [facility] [address] [place] [address] Dr. Jossue Centeno Urea nitrogen/Creatinine [Mass ratio] 15.7 mg/mg Normal [facility] Comment on above: Performed By: #### MARY Etienne MP #### [facility] [address] [place], [place] [address] Dr. Jossue Centeno XR CHEST 2 Von 11-08-2021 XR CHEST 2 V EXAM: XR CHEST 2 V HISTORY: Pain COMPARISON: 10/28/2017 TECHNIQUE: Upright PA and lateral chest x-ray FINDINGS: The heart is not enlarged and the vasculature is not distended. No acute infiltrate, effusion or pneumothorax is identified. The osseous structures are intact. IMPRESSION: No acute infiltrate or evidence of cardiac decompensation. The overall appearance of the chest is unchanged. Electronically authenticated by: ONIEL WILSON Date: 2021-11-08 20:44 Normal [facility] Coding Summaryon 06-25-2021 Coding Summary HTMLBase 64 TrfttxrfWFt8bKl+PGh lYWQ+JH2NUVVuZ16fxH PvhJ2RV0rQAX3NOYYMA WLCRZ4DAX4xmXU6LAtn S5TdumFp HbiuhYRwXF36EVj8TES 6eIplEXnxqW3wyFAmY8 x1EaPaTC03bY43MLqvC FTkWxX9OfCyxbcdaLOt R7mhCiEbvXTkSey+PHR hYmxlIHdpZHRoPScxMD KmDyFvuCmrTH9hAo9wJ GVyLWNvbGxhcHNlOiBj v5hrCIQrGIvmAL8kwDb tM3CkaQL5KFSvw6v4Nz 48dHI+TGEvWOY6tAlbA Laei811GuEhv0tkZFA5 sTNzRSlcROA9Z04fd1F 2EEJcGHFsOWO3rBV9hL 5dxJlspksrO8YovFVzH aC8YJJ5wECgdK2krRyn tjgnrW2uVxl+Z22WHX7 RQXGQPS2OQwi9Q8KkZy wvdHI+BR98PLQzYI99p OCyvHSst8ytqHk1BiMz NGIwQLK2xXssPKrnp7X kMBXcP87pfMFqw5T0RN YtjQzstTXwWtHteYP5s Z3iEZfszljdf6tphqvq Qiufv0yqla68eB00U85 mPSjvINXnDZF9FLZdKW WerYgyms0axO8oPo9+I Qtvi2wgb0eewJy8OqBa XPJpsaZclIddBLE0o4W xBz14G8GzuOjia0SjRr y5ft40jKCnu3B2yOO9K OvqVSNrrN7kBQldIzB1 HUYwEkBxkD12zICbMUm cIc5esXdxiMuxXF9pVM KfhxniQAZxjK5mVPCjc GOrbZxqBE9gZECskjli d308OqIaQRU7RGBqgZJ uG2RbiK3bVtOhHSJcEN NaM6OquKIoKKgeG596J FdkUiB3DGTbwuNtQ8Jh AKExdUhgAtT9t8S9Ko7 Tv3ZennjxOJH3KZybDH TzGhR8BoNkTlE1W4AdH pk9DYWwxKsbOY6tE4Dy LEVsnqlhpmtazGB1NKA jMMByyZ54sLCmTCdlVa 2kh8U6x745ADDpVSOte D50Yy6ytHtxKRYbhVNF eY3nvxbzp3vxqcoqHjE lPBLvXXj3BBx5YXPaaN hyOcDkSFF7IcQ2JFY9e QKcuB0tyHiutizftV5c Oyc+Q58rfF3kJXT8LSI 9imqtXOPetvNnNH89BI 28K9CiTjjkwWRtdSQ+P BBwnvKdfEwfMF9kVlMm t1dmx5CdOMzlF5HmDFS qOVezRht5MBCkKBH1cH A4cD8rTLNyXUlfq5O3o FS0V1RrgwDjhb5eq6rp MAZpNBwnT70rqUJyu9L 2LMXqwWQ8QHHitVzdHy WvfS91Wsn+PGNvbGdyb 6RcSlfin5doq1rqeIx4 IjMwJSIgdmFsaWduPSJ 8e8FrMv30H96zPPzuKT RoPSIxNSUiIHZhbGlnb y4okJ4pPs9+PGNvbCB3 hKJ3xS4tGVVcSvZ0AHj qS770LlMdhROnKyheb5 wce6hwaLo9ZqPxKSNuo vNqtCkiWSL5r9YtQs16 E02tZAueSXFjEIScUTN hHPNyoSmaxl9ljD8iTs 8+VZ9yh6sjst56tB68l HI+KINiTTI0xQtnZSan AEWfcE5sUTyyTmU6VKD lXaEgyX87tTWeQTmdSd 9vvJjmvBbmMX6mVNElp tlyw393HtEqn8vxJFJo uGZvKKgmOHN2I29ft8E 9SRPoIUEqAIJ4yRW7fF 1hbGlnbjogbGVmdDsgd hLviVsjFQuoHPdmD991 IHRvcDsnPlBhdGllbnQ dFnDeHXv6E0RbKnv1KS KbnZowIG8biBQuZZsmY w3dfPoarQlkLC5jKYAg zijac765ZjXjl4amOSB xzNBbIAyhDOJ4S56tc4 V4DZUiRMRcAAR3qUL6a H0akSumptbvhQCewRuo ewFpvNhdJZpmTMwtC91 6IHRvcDsnPkJpcnRoIE YwfKY5TE84MZ71eJJgy 6V8vWP3Z4OoPTSgnnyf yktgkOL7QGOpXCNgvV3 3Dy2zuZneRl3uLEIyLA F2MYBxxOEoC9WxcR5rX rGoKDAhJTNvQ3FxxIIp BZgnW215EHwaBiZ0ELI lxmHoD5XuUBHyzPqaNd W0o7B0Cl5EB1Z3IV80J E41oAFwh5S1fPA9C6We WTWegsvwoewinLU0OGZ aQNDfxN24Uh3mePttLi 5rWNDzMON8DEUlaOWqC 1OtoV6xUtGdMCJqWIKi T2WuxSFpJIieD781SXs pIeZ2GJUxpzGnZ1GtJS NiaCisWaM2l5G3Ca9VZ Ma7AW61TM36iQZww6C1 qVL2G8ElDLAyimrwemf hlFC2PSSqNEQxtB95Ca 3syUavAk7zZFSjCJO3W BQuyOMsH9OqfX3jLrHg AERlGPXjX4WlsLWmRAd fY393WTgnNcP5RHLgoe PuT1AoKLGczWjvPaL5f 2N2Lt3HNYGnLS45DYF3 pQR0LG17FZ03A8WlKrs vdGFibGU+PHRhYmxlIH dpZHRoPScxMDAlJyBzd LcdMW0lSq9sINPiGYDp eEonnBPuAgQgt3poTKR uRUswQU4tuKicU5AuiI Q1UKPni2o4Rt13F78bP 3JvdXA+JIYmeSD5zRB0 qC1gJyYzSiW2DGqtQ90 8FtIfpDFtIvpsd9rbn1 udyFo8PlR9SBRwslZmj IbaYDN3y8WiZh03Q48j IHdpZHRoPSIxNSUiIHZ suEfguc2kpU2jNk5+PG MdnAT2bIS0hR8xKsEqN wO7KGukD354TfSaxKJg Btjyb4fmx6liiEk8OmZ qKWVtvtTgsTymJYP9u1 TtEx22Q4DjwGlzl5LrO vd1vx97rVTvd9W2iEB2 T5XeBAUnfirubJYoaJf sJG8dZZXaqfzkTTYznW 6iZRGtP9t5UnKlDoM6V HwmO4XuwcX7KJPvnWQo IFjoRVZ9J57yp0X8WJH xYEOeJXG6oOY4fJ4riE lnbjogbGVmdDsgdmVyd TfpFXspDBnnT194HGMj sDcqGXSwbN4qYVJltOG beRwkJK0nOODtwottZq YAJ9IOXTHOClfTVQJIM ZI8S7WkAhk9JJCapKxi JY3fcWZwBLeySh1ydJi gfYxcKO3eWAOoquowQF IvoK4wLNOjfMCkyTgbF S3hFADqlmnqc804VaXn HFU4FLQpkYBrX7MipY2 vQsGjCHIbMQKgR3MtzQ OaBJqnM992YHwaYkX0G QNbolCnT9FlSQBdnYdu YpQ3f5W2Pq8ySy6bTP9 bJYa1IL62RL80lTWcb2 U3kBM4F8LgXBBazfiwp njkgJQ4OBXsWBPvgF55 kDYuBNpiBy4um3N5g02 4HGPlCYWjjU75Tv9huX ebGOYigVGOlM6apjebk 5putlojWyRtXZSrWKh8 JIi1BHQbjHniKjQrCFB 7VdY3EQK1eCRfqP6wvS omrwbsqN9zMpk+MjUgW FVwvqO6O8UaPvo9FTBt uBamTJ4haWVnMEvaDn8 rcCrooRbjBR1pZZPkol ngXNXovE8dVYDcoRScj WokJZ2uSSJlpbwjf340 UjKoDVB1KLZnxHGpO4W weJ5zEjUbGWGfFBXbG6 IeeLRxQWqxM357XWgeM uD0IUCrxxCwE5FdTOLv lMukOrU4m5L0Nc1AXKr ELA10OA31cUViw8S7lC Q9C6DiIIQhthqupdavf MX1DRVxKAHoiC16qSMx YZorIb8ze0Y7v711JXJ mTRErzT19Lv6dtXefFF CtnVFHgQ6jdifsc3dgh dbqMuCqZKWtIYc8MXj5 FFQiuWvvTuVuYSY5ViL 1PRS2aBBepC1fmJygio dgzB7iQhw+L7H6B2DiD jwvdHI+UN98HLJoEY81 lBUkdOTul3gtvMy2GrH nCTMbAGR3vPfcCUxsd3 LlSWRzF82trMNpn4E3N GNvbGxhcHNlOyBlbXB0 kD0yLDgesjgau5bdpld gKntqc6zpld14fA71G9 9sIHdpZHRoPSIzMCUiI ZYaeYhffq4ilF7hDm4+ NJYhmNB3hXK7nI4tRlX eGsA3NMljX948KdOsnJ NzKavox2fih1kgwOd9J jIwJSIgdmFsaWduPSJ0 z5PgYe85V23nNHwxEJB oPSIyMCUiIHZhbGlnbj 0amP5oFf5+ZF2bl8wdh r04eV84jFK+PHRkIHN0 eMhsZFsoJUDynC5bLVw rRnS3EOVgKtKbbB33oM YqMNfsRy2duNwtsMnrY X9uTWWlxjxjn477ItZa o0oyDATybRWySFuaUUN 1T08jt7K1CZIyDRSuTH P9wWS4gB6hlRktoxqxu GVmdDsgdmVydGljYWwt RQhuN828JHQjhVorCkB ymLZvA8dmroZXEL2dAv wvdGQ+ODUjKDL5pYurS UquCANqtY4tOGFpA1e7 KiVfOxZ8MAvzS4WnkzV 6IGJvbGQgMTBwdCBUaW 3sqowem4uslcfdLwRpO ERjJUh2GOs8ADBraInj EbTuIUC8IyV9OGA8rUI exP2btOqimpmioS3tSm c+RklOOjwvdGQ+PHRkI QU5qEgdTNaqMQWmqA1e ANMhE5q6PjNkCxI8EJk dL4NbosZ1VRMauHNyPI NraBWDdG8lerrgx4uid dexYmMsGQYiYLo2PSa5 WLXhbMzfIgBwBHX2QpO 5XYB3vGVckI2ecKntca ywuU5jOhx+TVJOOjwvd GQ+OZCgZQM9bTghXVhf BEXeqW6lTINzZ7x0RvI rYpX8YBbqI4GbjgP0QT BnuTSqADZbtUQCiG1hv duus5dffxziHyYnKWFa MZw1AMu7QJRotYqiDqD tELB3NhN1BJO9qPXknE 5rsVimsoqftY0nYmu+U XP5NYJ3AO39BE46V5Fo PjwvdGFibGU+PHRhYmx lIHdpZHRoPScxMDAlJy PasUkvUD7wLu0nOZPeT FJniPtumUTyFrHmd6by YXB (more content not included)... [facility] XR Ankle Complete Righton XR Ankle Complete Right EXAM: XR Ankle Complete Right, XR Foot 2 Views Right HISTORY: See Dx fell 3 days ago, right ankle and right foot pain. COMPARISON: None. TECHNIQUE: Three views of the right ankle were obtained. FINDINGS: Ankle mortise is grossly intact. No definite acute fracture or dislocation is seen. No significant focal osseous or articular abnormalities are identified. Small faint area of sclerosis in the distal tibia compatible with bone island. Soft tissues are grossly within normal limits. AP and lateral views of the right foot were obtained. FINDINGS: No definite acute fracture or dislocation. No significant focal osseous or articular abnormalities are identified. Soft tissues are grossly within normal limits. IMPRESSION: Right ankle study fails to demonstrate definite acute fracture or dislocation. Right foot study fails to demonstrate definite acute fracture or dislocation. Follow up as needed. Final Dictated by: Jose Elias Gunter MD Dictated DT/TM: 06/25/21 12:30 Signed (Electronic Signature): Jose Elias Gunter MD 06/25/21 1:50 pm Technologist: VINCENT MOTTA [facility] XR Foot 2 Views Righton 06-09 XR Foot 2 Views Right EXAM: XR Ankle Complete Right, XR Foot 2 Views Right HISTORY: See Dx fell 3 days ago, right ankle and right foot pain. COMPARISON: None. TECHNIQUE: Three views of the right ankle were obtained. FINDINGS: Ankle mortise is grossly intact. No definite acute fracture or dislocation is seen. No significant focal osseous or articular abnormalities are identified. Small faint area of sclerosis in the distal tibia compatible with bone island. Soft tissues are grossly within normal limits. AP and lateral views of the right foot were obtained. FINDINGS: No definite acute fracture or dislocation. No significant focal osseous or articular abnormalities are identified. Soft tissues are grossly within normal limits. IMPRESSION: Right ankle study fails to demonstrate definite acute fracture or dislocation. Right foot study fails to demonstrate definite acute fracture or dislocation. Follow up as needed. Final Dictated by: Jose Elias Gunter MD Dictated DT/TM: 06/25/21 12:30 Signed (Electronic Signature): Jose Elias Gunter MD 06/25/21 1:50 pm Technologist: VINCENT MOTTA [facility] Consent Formson 04-03-2021 Consent Forms [id number] [email or web address] [facility] Coding Summaryon 03-27-2021 Coding Summary HTMLBase 64 EblbqrujWHm6gUk+PGh lYWQ+SB7JNFZmW30ecC ZvsE6DO5rFAV4IOSCPA WRPBG4BGC9gqYL4QSqy B1NvhdRd WqdvoBPoRU45WHe3PPT 2eIsaLGodnA9ojCAmD9 o4EeOxLJ33yF68ILahJ MOeYdR6AhYrkvhxxSFt E4muMlBpiXHoCoi+PHR hYmxlIHdpZHRoPScxMD KxCzQugAubPO5nUf7wJ GVyLWNvbGxhcHNlOiBj a0rcQBQpZKohGM9ddBu aW7BpoLI4DMCcj4z0Ge 48dHI+CZFjFEO3pUllW Ruwl231CbWxb5fcYUX8 qXDsDUchMRB6Q65qs1M 2MQBaCMTcNFL1uDZ1sT 5pmOqiywxwM1AnvOMmA yK0OZJ0qNIuqE9biHfv gigabJ7pLke+X38NFA7 ZQHZFHW8YHqw5B0KwHv wvdHI+AK47MJXmOQ47r KOmfCZco2lbnXu2GoEx LGLxTXO0cTdxKXkwv3V jPTTtX28eoVNiw7R5JA KihYuddMAhKxLkjZP9h M7dZAfftuunk4lymsuw Dytcd6fsdf66rP06O17 wXXhpWCYkEMC6GHAbGG UjzFhelj0vxB1dRd1+I Lqej3yxn4zjyCy9KnBh CSSdaxXxuZdrQRL9y2C qDj01A7CgsJvnm9HzJv d8kt74yKOzh2I1kMZ5B HaoKLFzqO9nEUbcAfT9 KEGaFhDyoS93aYJqMHx rOy4seAnxqJyfIJ8qLL SncrbeFHZubU5qQWFlj LSbaHivGL0pAJXaitmr c936LzHpUDD3WAMpfZC pL2IbtE4iAtPuAHGmCY MuS7VpdMQtNNsiX026I SoeHvC7VBAfifHyI7Ow GBEgtUhxDzE6r4W1Iy6 Ez1DdvgevKUB8TMhrHJ YsMwV8BqObOcK7L4VfJ ii1OELukJamMC1kZ5Lw WVBslwqurtxgbMI2ISC cKIMzxW92bXXjVNluYs 4bs9S7v231FABgIOWxm Q90Tj2wxTqsSVZxfHSQ mP8bfavrn9zjvysvKeF eRGQcGZi5ZJw4SRTqoW mkTyXkXNT5KtR4TOZ7z OHgyW4xlAqopzswmE4q Oyc+H74lfN3eBBC2DKV 2qnisXKMznlJiKT43DE 93A3XjFfgboKGbrLV+P ZYevzKmaFobPH8fYcBd u4twt7GtJKweY8EdNPN tIHluSux5NLNbAWM8pP K9dH5oYBVcMRach9M0m NZ3M3MsjrUrtt1dk7ga KGSeIVgiA66aoJDkk7Z 3HUOlxTS1BVGkqTluRx HnhV48Uyz+PGNvbGdyb 2PrAoftx4dsm6swcCo0 IjMwJSIgdmFsaWduPSJ 0i6WqPh90E89nBHotWW RoPSIxNSUiIHZhbGlnb z0brU9lRd9+PGNvbCB3 xVS2dH7hAPWgFwP5EMp uB033HnPyjIAcKyoxm9 fjs3uuhVq2YmEpGCIfx lLigNemTWB0s2EtZl37 F01nTAthOWEeKUDaNKJ uDLUzdWrqtu9gyA9nRk 8+PY1yj5iexk77mP31h HI+MPJtMBH2mSxzTCql OWAlxW0fLKplZfM2BMW rIbSerK43fYSyIKtnEb 1uxDpkmEwqJN9oQBUnx ncwo303VoZva5beAHFh nTMyISpsMLI6V66np4C 0BIQgNQYsHMC9rIN1jZ 1hbGlnbjogbGVmdDsgd yXfoDniYPnkPOkzG696 IHRvcDsnPlBhdGllbnQ nGeAmYJd8K3MdGyq3CA PtjLfdFK7vxNHkHDvcF g9ysQbgmNgbQY6rHNFc rhkpt135ZfGuj0veJDQ owTLqVSpmEFS7D58kd8 X8LADhMVEgZRB0cSB9c B5qzJntbgophPKpjKrj sgKbpWsbUWbxVOtuA79 6IHRvcDsnPkJpcnRoIE UgaYX2OH28CI86xKAwa 2W2jZO7Y0DyEIDmekfr sacohTD0QUSjKUMnqY2 7Lc8pcKgdEr1rWEPqZN Y2XPCvwSErZ0GdeH8qX gAvCYErXSErZ0IrfMGz UWscD865IIphHmC6QVE avjHiZ1RfLRAavZpiYn R3z8R1Jy5AF6D6OX45Z E34eBSbo9D5uFB9S0Na WQLxwaybsedzjRM1HZM xPQXmfV31Uu8kpHrxQd 4bMVFxTJQ1BDIqrGCcC 1OpuU3sIsApUSXpQAXb V0BxnXIfLOdkU357AOf oUaX0YACgolVpU4FrUS QmvJtmObA6n5C6Wo2JE Wj2DW00YL79cXFwm5M4 dFD6W4OoZKFkorqlbad rsHE4CMEfJWEwjC46Gt 4mnFmiJf5zPTXzGII3Y LJdgWKrB7XbbU1rYvSj IZJxHBMkJ1ZvkYJwYXh fO117LQvmLhW0SOAmsh UmS0VdWHIdvRmsZvK0m 6L4Xh7EPNViZD53DYM5 vLF8JB97NE94W1RuGgu vdGFibGU+PHRhYmxlIH dpZHRoPScxMDAlJyBzd JurZF7iZi4bUNJbSHHq fUxgnGDzXbHiu9rxDCE mDOitAX1erUrtE2HokY V5SNOks9r6Yv27P34kD 3JvdXA+TCSewSJ6gYG9 pX3sVyWsMaY0CUflF54 7XmDbgXChCodjr8wuc9 whxXq3KmK1XIZffhMyh TclFBN4k6IrWa78Z41q IHdpZHRoPSIxNSUiIHZ fiXehvl8tpT5tEw7+PG QziXZ5sQB8aT1lLhFzF rB6HYifY498AnUhoQGd Bfjku9hjg5wpzTy3AzK nDMMizhFpeGrwNMQ3r6 LrTm65F6CxwUqoq7WaJ di6ro67cHBdd9P4xOA2 P2IfOLKlmjpanPXwdXo aIC2pAVGejqffXYIecH 6qMRKxF6o9RsNhJaK3S VjzP5WhsqC7QPKrzNZt ATuzLSH5N26jd2U4YNN pRYPzNVU8pDW5cI8oaY lnbjogbGVmdDsgdmVyd GyjGZxqYTtwJ176NIZk oVpwPNTihV0tFEWkjVW ikBcuDK8iVLFoizzyQn QUT4URLSJCEioDPPDHI HR5Z8MoAwt2CLMvnNjt OR4hdHNcPAjvYs4fsNz amIaoMV5dDESuqxoyYS OtsK8wEBEklFEttOsxZ G6tRCCtgdzjk568PsJk NWL5TNZubUPqB1IaaL1 bJiZuSCTzAQFzE4LxxE NbDSiqI459ENcoQrK2Y DSsisSeC3BlALAoaAof BkR2t2J3Rr7bOc9oBY5 dKGn7RC90GY50iLKik8 D4sRE7L1ZaLPEouqujk otovCT8TSQyVBAvcF16 wBVoPIpwNw6ad7E4t93 0UPUlIAHnjS15Ax3mpY cjXRUcgQPOoY1knaqth 3igjtseRhJzTHKzBXe8 EUl3ZRNzcZvtBlOkRVB 4RmN2DUP8zVCvjD9zaW hvdykbqT7wZef+MjUgW BIclcJ4C5ZdYvr1OJEb bXqeWH1uiNYoDRpjFv0 heOnaaYpuDJ9nIBAzru wlKENwbQ8vOZMchOWyn PajLJ1xNCNsvynwn580 ZzKzKEA6UAVqbVTyG8E qwQ8wEzCmKGXgRAItK0 PrgKPsTEoaP167JAqkS vW9GFWxjvOuK7ZiBVIb vTfqBoD7b0E7Uz7ZHZj TMX21CH89vBAtn6U4fN V8H6LqOFXrjlrdaamoo NM9MZKqRSRwbE72aCFv NRedKw4qb0R4z626QKG tGVCpdW28Nc9dhCquRE WuyCKPxE8hfvdqd0unk trcNkTtJDLoZRc4XPx6 SXLvoUfxEoUtCWR2PaN 6UIN4qOWurZ6wxIwnkk rzmF8jEbx+F3U6R3WnC jwvdHI+ON35JEOmLO36 cFBtuUHvo4ntnNz4CkO sSKKtSGM3iCeoMQine0 HmBPKkS15wkLOxq7J9S GNvbGxhcHNlOyBlbXB0 gU3wOZbpjhslv2idxzp gHulnr7impb63vD51X0 9sIHdpZHRoPSIzMCUiI MXdiBjbps5tgE9pAu5+ NSLbvYK3nDU9qR1zVmS qQaE4KDafI246WlOknG CnMhjvz0vcb1mudFa3G jIwJSIgdmFsaWduPSJ0 t8JfDk04K70bKVzoKEF oPSIyMCUiIHZhbGlnbj 3tlC0kLj7+CA2hy1hyr u98oE06fYO+PHRkIHN0 vFixXBsqRMVvrM8fPGe qVsU8UWFxPoCyzI33uJ FaJWiwKa6njTrkoChvY D7mXXGhswrwy553PdCs p6elMFGfqBXcQAumKMJ 2H24vr7I3JSKcXMOmVE L9dMR6fY0alBgdwenkg GVmdDsgdmVydGljYWwt FSujN566ROYgiTncZiD oyHMyY0fliyBHYA4mVr wvdGQ+QGGcEWM4fHxyL EopVEDizZ5wDRJiQ1v1 UjCrXvX4XHjbF6HwhaD 6IGJvbGQgMTBwdCBUaW 8ruvokq2iyuknnGmSfP SJcAZe8AUp5QRIikOnn RsQyQFW3MrF4XIP3lNZ hmG1ytXotxnjwzW1eLi c+RklOOjwvdGQ+PHRkI JB2pDbbUTfuUYBomS9l PNKlJ5l1WzNuGtZ6OCm cD8LowsP2AXWdvMUeVC FuqQFHrN7rankgp1nfw dieQnPaXPGtFMc2JDr1 QQXpkYvoNvAxVRU3FtM 2SMA7xILdjE6oyTlpsd yyrF0aSit+TVJOOjwvd GQ+WIOsMZH3vBnpVFkb VHYebJ4mNPBaU4z7WoE aFuC1OJihJ6LvjoQ8NS VfuBHpGOCjwZIBnZ0gl gdjo5njojebQdXvCERg ILc6ABz9JHBmyLyfSuU tYFH8KnM1CWO7mNAhvD 6mwEqjlebamO7tIhe+U LQ7YCK7RY79IB51S8Jd PjwvdGFibGU+PHRhYmx lIHdpZHRoPScxMDAlJy WnfQeyCP8aVa0jJCBsZ XAcaIbdtXHlEjIhn8oh YXB (more content not included)... [facility] Coding Summary HTMLBase 64 LtrlkuchFJo4qKb+PGh lYWQ+TW7PPAKhI71ntW HvgQ5SY7qXJR4PPSDDF PCIPV7FLJ3miPX2HMjw W8GgvcId NdllmLVuRI73CTx1UWR 8hUmnHHdzwH8olFNdN7 b3CoMkEU42yV71BVzfO FRnEkU8CfIeblbtoLPk P7fwJyApkOFkUhx+PHR hYmxlIHdpZHRoPScxMD ZlWsPgqOliUR2bJf4iX GVyLWNvbGxhcHNlOiBj y3ubCATnYTevER0xzOo iZ8ThdVR2JEFzr7b9Qd 48dHI+FVYcQLR1pFhfS Vrgr718KkLan5lzRUL3 bZYiXFdmYAA0B33ih7W 5WQPaDUMqXLQ3hNB8hN 2laBadmuvzG4VnrOAeO oC2VHI7aDMfmH4eoFtp yuymyE3nPwe+S88RCB9 AFVIAGH4SVuz2P3MbGx wvdHI+TM22XPXwFH69n MHykHDud5lgoOu2AbXv LTUlXJP3xTfrTHzvr7L dQLUeL43mkMMmi3G5RS EulKpbaLRaWsFtkBP8c B5fJVfznrxmo8jlicmu Hcwcd1kizw71fQ48H68 lGJijOOVuDYY2KAWpIP WzqNbgih5tsK0jHa1+I Etke0ycr6ghdWy2MiBf VXYvbgCntJofELE8u3T tZe18G5ZzrWrmu7PaFp o0qs31lMYax2J7xCE2P PqlFIUjrU2cLFrrMlD3 PAAjAkSxdV38mOGmINm pDv8miPslbJdyTD4dZD OoburiIAHayH4kQYCbo XShzKrvGO3vSHRbnhyx x623NkHhXFX8VBWpuYL hV5FrtP5xJuJoBGRoIE JvC1LmtLXrKNkkX779W NbvAyS9GDFnpqHnV7Os HITadUlwKdN9w1P7Qi0 Aa2RlzwpcCYN6UValKF NyXcL0HaGwOsX7E8BqN bs2UJHpvTyxGT0sH7Bn PKXfbtteqmnpzOU8ZAP lNDIzhB60tITnSIvhPd 2oo9X8p318QRInGNMbp W91Ht1auCvkQRNcgLQC dH1hgjgkt1zqghstHyJ tKDYaNHe8KOa0SYBczA zpNrLlMOZ0TfE1QGQ7t VPkbE5hcZraiceewR2y Oyc+G23gyG7cCBJ2CLL 1vgvgRPKzahSyAY25BZ 47R0YuNtqkrFEipZF+P VHmskZxsDchPQ9kFoXy p7sqo5GxUMjbY9FxBOO mSWbxFrr1IEFmRLH7zV U2kI8iGYKmJAdbo9C6u HE0R4XaltHvbh5kr9wm QWUnJNgeV66gaYQyl8J 2FJOjmSF0HVEsmBiwHv AgoT14Biw+PGNvbGdyb 2MwRmmrr0dwt9kivNx8 IjMwJSIgdmFsaWduPSJ 4p0NyAa51X71kSKvuHY RoPSIxNSUiIHZhbGlnb m6ujH6jNz2+PGNvbCB3 aNX2fI7jLLEgXrG3WAd rS223BgAsqZGzFuozk7 jpr2fazPh9YsInDRDrl sHehKfsHDL6f0FgXp31 L57vEOylNXHlBMJiLXJ jSCNngGadwc1dlN7gZe 8+ME4yk3josq97jN45c HI+DGKcNDX9lZlxJOnh FYPiwC6dQLkuPeO8ONL fOvAxfA51zOGrFYwxMa 8ntZsabGcbRJ6zPMRgz vwak843MvMxb5ajKVDn sSSeMDvvVGS3O75bq1B 9ZRHzABIeVDR5uTT3gG 1hbGlnbjogbGVmdDsgd bHqkUecFAxyPRwwU061 IHRvcDsnPlBhdGllbnQ lYeVkBYs4B3MfFlf1MB UsbTcfKN1kzXFjAXosX v5xxMozkBtcEJ1yGPCx lcaww872OtTfq5maIMG cxFUdEVnaHRB6N53cx6 Q9JVJtNMQqFLY2iTG9n X7jvBngjihtcULzlCee mnQlbVcjUVvoUSfqP13 6IHRvcDsnPkJpcnRoIE SypQD4MK21TJ84wDIhs 4N9lZF3V4KuSURyxmik egwyfWW5TLTaJFHpoJ1 0Qf1dcEchXp0xPXDdJM F7FGLjaOLhA7NnuO6bY sIkHOIbLNUiY3XlpESr HTwzI517BOtwMgG5QYV olsIuR8WqAUSaaOhjQk Y2p3K5Oq3YD8C8VM33A J55gIGgb6W6jOS3S3Ke JFCexfikwhxidPG3GPS qSSEgwY75Bj8peYbyIw 9uFPRhQDQ8DVQkyHFfT 6QyqY4gCuKeRRHlNBJr L4TivDSwLPopA623ZXj wAwI5ESPsumYoT8AwZS FzoAqpMdP6t7U6Ff5IL Vn5DT34EL20xBOsx9K7 sPD4O6RaTQTjgiwnuxe bxPG7ZWEpAWPwsI18Km 8vsRubHn3wMERaNLY6U NHiqHUmQ2QbaL2kJpIl KJJwAINbI0RglSBnHAl hA215PHimZgE7GYXvur EpN9XuTAOnsNqaYtS8r 6H2Cy7GEAGnNW16UZP5 cPM0RL31ZO97U5FbByd vdGFibGU+PHRhYmxlIH dpZHRoPScxMDAlJyBzd MvaJP3sMa0gEVOrHOWm hMrmpTHmFjRsl3pjQRQ cFAysNU3sdEihB7NgcS Q6QMQax3a4Om75A53eW 3JvdXA+HCTmlYF3yOH0 pN0sRlWxLaV6ZQmmU37 0CuMpqJGlWlwyq6pnd4 abhUa6RaM4VKPajuKoy MzeEGK4v4CgWz13G53o IHdpZHRoPSIxNSUiIHZ bzNocyk2voI0gMl7+PG CzrVS7zJS2cZ2eJoOxP vZ8CUkzG113McJgnWQx Yfafk6upg1zowRe3KsT tHUBpteEejQrtZGR6r0 OrEl00H6GrwTzil8GwG zm0kb23lMHeb0Y0iMQ2 M7DuJKGfehzcsOPcxWm xVG0wGXNnzqcmVSJnvD 0qGGFgV5u5QlJsUuM8F QhzR4KdddR3AINepVJa QAyhVGE4Q97ff4U0HJZ bWPQqXLY5qYC5vA0bwE lnbjogbGVmdDsgdmVyd WtgIGbkQSajB842GJOp bRzbWITubY4pZVDcxIA pdLimKF6cFIOxfbtpPl EHR8JBLZJTJvyYJAVRC MG6I6YkSlu4UYIduCvz XR5hiHLhXSbpQg6lpKa xvLbsPU2lYDKfrbtjNS FfjJ1uTAFuzRQcoHevR C0eBZHmtpcor643ReGt JDO7ADZtfNPhL3JuzU3 pGrMlFJXdYQRyK4UufW ZjDOszO707JQgrYlY0J JAhwnJuZ7OeMCQmaDze UsB7h3R3Gl6xPi4oFE8 rOKt8VO04UQ09fEHjv9 N0iGR5K9NgKUBashsiu yjrsRN4QETcGJXokJ79 jDXuCKlePa6rr3D4g58 7WQQiUMAcgX51Pa0slG sgGREqiFSCtN3lbtnuo 9thzqllNjNxBQDoBXt6 EBp6POIgpVpiMiRzGSP 9JvV7QNP1bBPzoU3wqQ kakpqfkH2nVxm+MjUgW NDzkuL4K9XdNvr4KKHm dIrlVK7ssWIuGEcfNl9 clIfmeXluMO9eUUKsad jvNRVnwF4eSIIswYWcw AxcOA9yQAZessmim912 UtBxQGF3XZXojLKeE2E liV9iRpXuKAUhBBDmV5 NixDAyDOnjH189ZSdpR jB0GOIhsvFdN9BtIAGs pOqlEpS9s4D0Eo4XQRj KYM00GD52aEAda9V8tK X5K4SfAXGafufpwyowv XY6IVXsLPPuxU39lDVc DXhkEa9og7M6t635HNO oUGSavZ04Kj6fnBjjMT JgdMRAkY6zyksmd5jhg haoUuXdLVIkAZa3XUz7 KXNedZbuOnAfWLD0KlX 3MTU2mFIngG0icOlhas btqX7lMcs+W1J1I0HxB jwvdHI+YY52DNSzAL69 fOTwcADld3gkcZj4WgL nSZSjIRC1pCdzRXbir6 EeMOGwM11keSMat9H5X GNvbGxhcHNlOyBlbXB0 oY0kIDjenhzvb2gcsmx hUseig1pkxv10uF28A2 9sIHdpZHRoPSIzMCUiI AUwnHjdju8doL1xIv7+ KESwlZC2mRE7zW7gJgY cPeR6JHhdO430JlUqaW UjWzxwy6yab3qmnWv9I jIwJSIgdmFsaWduPSJ0 w4TpOj51O69gIVuiVWB oPSIyMCUiIHZhbGlnbj 9jhN0nQg6+JC2vp1nns c08vB77vJX+PHRkIHN0 eStkFEmfSRAveQ8jYHy yNcF8FNLzTyUawV32vD IcPAujMr8cuLianCyoD X8fTRRocvsxx720ThQb k7ssIHOqvBDaGRrlCBL 1K27af3F0NZUqAYBxMM C8wQG0dH8ylAfatctde GVmdDsgdmVydGljYWwt GTnjZ066IMGerBqiNyF raXKsX2lnfgMRZG0gVv wvdGQ+CSGlJCN3mLsiO EycRMRwhP4aTQDyU9i6 BuSzRmW1YIiwW0FiiuG 6IGJvbGQgMTBwdCBUaW 2hhjzqr9pzqwpfNcFfY XXrLLg6VGk6TTXamGzu AlKySAK7IqY7NNA3hBL qeY2plZzwjcqoeS9aWf c+RklOOjwvdGQ+PHRkI IU8pBkzFUhuYBQxzL4u SDXlB0t4CgNjAtP6IWu fV5EjhgB5LPZhhUZlRE JfaRQTlS9ulsoul6tfx bviTqHlMGSaXGj2QOc9 RVOjmYlgLtGdLUH6HiM 5HMX2cFMdrT0gfYdlcp wkaP0pXlz+TVJOOjwvd GQ+GGYlKIZ7tWajYCgv CVLeoK7gONUjK7f8ZoN lUuD0UGdzD3HnmlI3VK AhoZBqWJDmiVEFfW0yl hxyf3xneajrFfKfPKHa CBc2DCd5AHXghXtwGaL xBZD3SzQ6AFA6fOFaaT 2pzAnkmqpwnV6nPhd+U OP4DKX5BQ00ON04J1Rk PjwvdGFibGU+PHRhYmx lIHdpZHRoPScxMDAlJy VryXvtHL2nXd6yTJCkS IWsdDbvjEQsFpCts7yz YXB (more content not included)... Normal [facility] .Auto Diff 03-24-2021 Auto [place] % 6 % Normal 05-20 [facility] Comment on above: Performed By: #### 7 [id number], [id number], 7945505, [id number] #### [facility] (DEFAULT) [address] [place] [address] 28347 Baso Abs# 0.0 x10 Normal 0.0-0.2 [facility] Comment on above: Performed By: #### 7 712352, [id number], 0667569, 44862236 #### [facility] (DEFAULT) [address] [place] [address] Basophils/100 WBC (Bld) 0.2 % Normal 0.2-2.0 [facility] Comment on above: Performed By: #### 7 277745, [id number], 7791080, 63524772 #### [facility] (DEFAULT) [address] [place] [address] Eos Abs# 0.1 x10 Normal 0.0-0.4 [facility] Comment on above: Performed By: #### 7 658722, [id number], 8776244, 95446147 #### [facility] (DEFAULT) [address] [place] [address] Eosinophils/100 WBC (Bld) 0.4 % Low 0.9-4.0 [facility] Comment on above: Performed By: #### 7 214469, [id number], 0067331, 52011041 #### [facility] (DEFAULT) [address] [place] [address] 46304 Lymph Abs# 0.8 x10 Low 1.3-2.9 [facility] Comment on above: Performed By: #### 7 443888, [id number], 2246135, 54838318 #### [facility] (DEFAULT) [address] [place] [address] 13274 Lymphocytes/100 WBC (Bld) 4 % Low 14-48 [facility] Comment on above: Performed By: #### 7 788754, [id number], 1050838, 80089091 #### [facility] (DEFAULT) [address] [place] [address] [place] Abs# 1.0 x10 High 0.0-0.8 [facility] Comment on above: Performed By: #### 7 391872, [id number], 8157046, [id number] #### [facility] (DEFAULT) [address] [place] [address] Neut Abs# 15.6 x10 High 1.5-9.2 [facility] Comment on above: Performed By: #### 7 795466, [id number], 8626834, 62428526 #### [facility] (DEFAULT) [address] [place] [address] Neutrophils/100 WBC (Bld) 90 % High 44-88 [facility] Comment on above: Performed By: #### 7 220972, [id number], 4715831, 51613188 #### [facility] (DEFAULT) [address] [place] [address] .QC SARS-CoV-2 (COVID-19)/Fl u/RSV (GeneXpert)on 03-24-2021 Internal Control Pass Normal [facility] Comment on above: Order Comment: Order ed by Discern.[[id number]] Performed By: #### 7 870378, [id number], 2117646, 14597736 #### [facility] (DEFAULT) [address] [place] [address] CBC w/ Auto Diffon Erythrocyte distribution width (RBC) [Ratio] 13.1 % Normal 11.5-15.0 [facility] Comment on above: Performed By: #### 7 426862, [id number], 7260554, 87972851 #### [facility] (DEFAULT) [address] [place] [address] Hematocrit (Bld) [Volume fraction] 47.2 % Normal 34.8-51.9 [facility] Comment on above: Performed By: #### 7 850687, [id number], 5159795, 88616768 #### [facility] (DEFAULT) [address] [place] [address] Hemoglobin (Bld) [Mass/Vol] 16.2 g/dL Normal 11.8-17.7 [facility] Comment on above: Performed By: #### 7 953697, 1918975485, 1967654, 52945337 #### [facility] (DEFAULT) [address] [place] [address] Instr WBC 17.4 x10 Invalid Interpretation Code [facility] Comment on above: Performed By: #### 7 096134, [id number], 3897848, 83788417 #### [facility] (DEFAULT) [address] [place] [address] 80857 Man Diff? Auto Normal [facility] Comment on above: Performed By: #### 7 812392, [id number], 8220638, 69045683 #### [facility] (DEFAULT) [address] [place] [address] 79814 MCH (RBC) [Entitic mass] 28 pg Normal 24-34 [facility] Comment on above: Performed By: #### 7 436538, 3582647919, 7619249, 66280449 #### [facility] (DEFAULT) [address] [place] [address] MCHC (RBC) [Mass/Vol] 34 g/dL Normal 26-37 [facility] Comment on above: Performed By: #### 7 286840, [id number], 7053046, 16661923 #### [facility] (DEFAULT) [address] [place] [address] 10038 MCV (RBC) [Entitic vol] 81 fL Normal 81-100 [facility] Comment on above: Performed By: #### 7 399085, 9106503907, 3913582, 77176219 #### [facility] (DEFAULT) [address] [place] [address] 23708 Platelet 314 x10 Normal 138-427 [facility] Comment on above: Performed By: #### 7 234917, 8198158318, 5686542, 14118813 #### [facility] (DEFAULT) [address] [place] [address] 18307 Platelet mean volume (Bld) [Entitic vol] 9.1 fL Normal 6.3-10.2 [facility] Comment on above: Performed By: #### 7 849221, 1226107993, 5637733, 80518802 #### [facility] (DEFAULT) [address] [place] [address] RBC 5.81 x10 High 3.70-5.30 [facility] Comment on above: Performed By: #### 7 789561, 6936174782, 2348506, 91803832 #### [facility] (DEFAULT) [address] [place] [address] WBC 17.4 x10 High 3.5-10.5 [facility] Comment on above: Result Comment: Slid e Reviewed Performed By: #### 7 777684, [id number], 7337692, 65004602 #### [facility] (DEFAULT) [address] [place] [address] CMP Standardon 03-24-2021 eGFR Non AA >60 Invalid Interpretation Code [facility] Comment on above: Performed By: #### 7 961285, 8821228234, 5393559, 05589147 #### [facility] (DEFAULT) [address] [place] [address] eGFR AA >60 Invalid Interpretation Code [facility] Comment on above: Result Comment: Plastics Process Hand trish Kidney disease could be indicated at eGFRs of less than 60 ml/min/1.73m2. Kidney Failure is indicated at less than 15 ml/min/1.73m2 Performed By: #### 7 051277, 7662125320, 5251051, 87930779 #### [facility] (DEFAULT) [address] [place] [address] 67624 Albumin [Mass/Vol] 4.6 g/dL Normal 3.5-5.0 [facility] Comment on above: Performed By: #### 7 198603, 0341711607, 1530468, 41823979 #### [facility] (DEFAULT) [address] [place] [address] 92222 Albumin/Globulin [Mass ratio] 1.3 {ratio} Low 1.4-2.6 [facility] Comment on above: Performed By: #### 7 482724, 2703145942, 2529718, 60870796 #### [facility] (DEFAULT) [address] [place] [address] Alk Phos 84 IU/L Normal 32-91 [facility] Comment on above: Performed By: #### 7 911207, 8641234813, 6422732, 30626234 #### [facility] (DEFAULT) [address] [place] [address] 98236 ALT [Catalytic activity/Vol] 42.0 U/L Normal 17.0-63.0 [facility] Comment on above: Performed By: #### 7 939434, 5881077701, 7147926, 44297416 #### [facility] (DEFAULT) [address] [place] [address] 97614 Anion gap [Moles/Vol] 14.0 mmol/L Normal 5.0-19.0 [facility] Comment on above: Performed By: #### 7 213230, 5583088396, 6500230, 78520063 #### [facility] (DEFAULT) [address] [place] [address] 57165 AST [Catalytic activity/Vol] 32 U/L Normal 15-41 [facility] Comment on above: Performed By: #### 7 874889, 7881539774, 5850794, 93394275 #### [facility] (DEFAULT) [address] [place] [address] 17270 Bili Total 1.2 mg/dL Normal 0.3-1.2 [facility] Comment on above: Performed By: #### 7 722809, 2931869885, 1600474, 26075821 #### [facility] (DEFAULT) [address] [place] [address] 97113 Calcium [Mass/Vol] 9.3 mg/dL Normal 8.9-10.3 [facility] Comment on above: Performed By: #### 7 180981, 5120221461, 5428363, 70935066 #### [facility] (DEFAULT) [address] [place] [address] 47598 Chloride [Moles/Vol] 92 mmol/L Low 101-111 [facility] Comment on above: Performed By: #### 7 853668, 8914650445, 2710344, 62087386 #### [facility] (DEFAULT) [address] [place] [address] 96502 CO2 [Moles/Vol] 31 mmol/L Normal 21-32 [facility] Comment on above: Performed By: #### 7 831255, [id number], 6960176, 76331833 #### [facility] (DEFAULT) [address] [place] [address] 26317 Creatinine [Mass/Vol] 0.68 mg/dL Low 0.90-1.30 [facility] Comment on above: Performed By: #### 7 081610, 2300778574, 1548819, 02056908 #### [facility] (DEFAULT) [address] [place] [address] 38778 Globulin (S) [Mass/Vol] 3.5 g/dL Normal 1.5-4.3 [facility] Comment on above: Performed By: #### 7 502938, 2561957631, 3582927, 97756276 #### [facility] (DEFAULT) [address] [place] [address] 56390 Glucose [Mass/Vol] 106.0 mg/dL Normal 74.0-118.0 [facility] Comment on above: Performed By: #### 7 221212, [id number], 8181362, 39681733 #### [facility] (DEFAULT) [address] [place] [address] 28999 Osmolality 268 mOsm/L Invalid Interpretation Code [facility] Comment on above: Performed By: #### 7 031478, 7386004920, 4276485, 31936026 #### [facility] (DEFAULT) [address] [place] [address] 10705 Potassium [Moles/Vol] 3.0 mmol/L Low 3.6-5.1 [facility] Comment on above: Performed By: #### 7 361212, 7709115670, 6714186, 98053437 #### [facility] (DEFAULT) [address] [place] [address] 47262 Protein [Mass/Vol] 8.1 g/dL Normal 6.5-8.1 [facility] Comment on above: Performed By: #### 7 865789, 4902547214, 6099494, 08765079 #### [facility] (DEFAULT) [address] [place] [address] 78822 Sodium [Moles/Vol] 134.0 mmol/L Low 136.0-144.0 [facility] Comment on above: Performed By: #### 7 830571, 0897241976, 5850933, 58176810 #### [facility] (DEFAULT) [address] [place] [address] 88384 Urea nitrogen [Mass/Vol] 11 mg/dL Normal 8-26 [facility] Comment on above: Performed By: #### 7 [id number], [id number], [id number], [id number] #### [facility] (DEFAULT) [address] [place] [address] 80001 Urea nitrogen/Creatinine [Mass ratio] 16.0 mg/mg Normal 4.6-16.2 [facility] Comment on above: Performed By: #### 7 [id number], [id number], [id number], [id number] #### [facility] (DEFAULT) [address] [place] [address] 71087 Magnesiumon 03-24-2021 Magnesium [Mass/Vol] 1.07 mg/dL Low 1.80-2.50 [facility] Comment on above: Performed By: #### 7 [id number], [id number], [id number], [id number] #### [facility] (DEFAULT) [address] [place] [address] 05788 BASIC METABOLIC PANELon -3 Calcium 10.4 mg/dL High 8.6-10.3 [facility] Comment on above: Performed By: #### 1 69, [id number] ####[facility] [place] [address], [facility] Chloride 99 mmol/L Normal 98-107 [facility] Comment on above: Performed By: #### 1 69, [id number] ####[facility] [place] [address], [place] CO2 29 mmol/L Normal 21-31 [facility] Comment on above: Performed By: #### 1 69, 86119 ####[facility] [place] [address], [facility] Creatinine 0.82 mg/dL Normal 0.70-1.30 [facility] Comment on above: Performed By: #### 1 69, 75485 ####[facility] [place] [address], [facility] eGFR (black) mL/min/{1.73_m2} Normal >60 [facility] Comment on above: Performed By: #### 1 69, [id number] ####[facility] [place] [address], [facility] eGFR (non-black) mL/min/{1.73_m2} Normal >60 [facility] Comment on above: Performed By: #### 1 69, 87648 ####[facility] [place] [address], [facility] Glucose mass conc 84 mg/dL Normal 70-100 [facility] Comment on above: Performed By: #### 1 69, 13347 ####[facility] [place] [address], [place] Potassium molar conc 4.5 mmol/L Normal 3.5-5.1 [facility] Comment on above: Performed By: #### 1 69, 84270 ####[facility] [place] [address], [facility] Sodium 136 mmol/L Normal 136-145 [facility] Comment on above: Performed By: #### 1 69, 08482 ####[facility] [place] [address], [place] Urea nitrogen 14 mg/dL Normal 7-25 [facility] Comment on above: Performed By: #### 1 69, 39953 ####[facility] [place] [address], [place] MAGNESIUM BLOODon 06-07-2017 Magnesium 1.6 mg/dL Low 1.9-2.7 [facility] Comment on above: Performed By: #### 1 0070, 93345 ####[place] [address] [place] [address] Vital Signs Date Time Vital Sign Value Performing Clinician Anthony foreman 06-16-2023 15:56-0500 Body height 172.7 cm Shaikh Kim CALL Work Phone: [facility] 06-16-2023 15:56-0500 Body mass index (BMI) [Ratio] 35.73 kg/m2 Shaikh Kim CALL Work Phone: [facility] 06-16-2023 15:56-0500 Body temperature 97.9 [degF] Shaikh Kim CALL Work Phone: [facility] 06-16-2023 15:56-0500 Body weight 106.59 kg Shaikh Kim CALL Work Phone: [facility] 06-16-2023 15:56-0500 Diastolic blood pressure 76 mm[Hg] Shaikh Kim CALL Work Phone: [facility] 06-16-2023 15:56-0500 Heart rate 72 /min Shaikh Kim CALL Work Phone: [facility] 06-16-2023 15:56-0500 SaO2% (BldA) [Mass fraction] 96 % Shaikh Kim CALL Work Phone: [facility] 06-16-2023 15:56-0500 Systolic blood pressure 110 mm[Hg] Shaikh Kim CALL Work Phone: [facility] 11-25-2022 15:40-0400 Body height 175.26 cm Marcelino Andra Other [facility] Other 11-25-2022 15:40-0400 Body mass index (BMI) [Ratio] 34.23 kg/m2 Marcelino Andra Other [facility] Other 11-25-2022 15:40-0400 Body temperature 98 [degF] Marcelino Andra Other [facility] Other 11-25-2022 15:40-0400 Body weight 105.14 kg Marcelino Andra Other [facility] Other 11-25-2022 15:40-0400 Diastolic blood pressure 81 mm[Hg] Marcelino Andra Other [facility] Other 11-25-2022 15:40-0400 Respiratory rate 18 /min Marcelino Andra Other [facility] Other 11-25-2022 15:40-0400 SaO2% (BldA) [Mass fraction] 98 % Marcelino Andra Other [facility] Other 11-25-2022 15:40-0400 Systolic blood pressure 134 mm[Hg] Marcelino Andra Other [facility] Other 12-02-2021 09:05-0400 Diastolic blood pressure 88 mm[Hg] Provider AMAProvider Work Phone: [facility] Work Phone: 12-02-2021 09:05-0400 Systolic blood pressure 118 mm[Hg] Provider AMAProvider Work Phone: [facility] Work Phone: 12-02-2021 09:04-0400 Body height 177.8 cm Provider AMAProvider Work Phone: [facility] Work Phone: 12-02-2021 09:04-0400 Body mass index (BMI) [Ratio] 31.14 kg/m2 Provider AMAProvider Work Phone: [phone] [place] [address] Work Phone: 12-02-2021 09:04-0400 Body surface area Derived from formula 2.16 m2 Provider AMAProvider Work Phone: [phone] [place] [address] Work Phone: 12-02-2021 09:04-0400 Body weight 98.43 kg Provider AMAProvider Work Phone: [phone] [place] [address] Work Phone: 12-02-2021 09:04-0400 Diastolic blood pressure 86 mm[Hg] Provider AMAProvider Work Phone: [phone] [place] [address] Work Phone: 12-02-2021 09:04-0400 Heart rate 66 /min Provider AMAProvider Work Phone: [phone] [place] [address] Work Phone: 12-02-2021 09:04-0400 Systolic blood pressure 122 mm[Hg] Provider AMAProvider Work Phone: [phone] [place] [address] Work Phone: 03-25-2021 12:20-0500 Body height 175.26 cm Marcelino Andra Other [facility] Other 03-25-2021 12:20-0500 Body mass index (BMI) [Ratio] 30.59 kg/m2 Marcelino Andra Other [facility] Other 03-25-2021 12:20-0500 Body temperature 99.1 [degF] Marcelino Andra Other [facility] Other 03-25-2021 12:20-0500 Body weight 93.99 kg Marcelino Andra Other [facility] Other 03-25-2021 12:20-0500 Diastolic blood pressure 82 mm[Hg] Marcelino Andra Other [facility] Other 03-25-2021 12:20-0500 Respiratory rate 18 /min Marcelino Andra Other [facility] Other 03-25-2021 12:20-0500 SaO2% (BldA) [Mass fraction] 96 % Marcelino Andra Other [facility] Other 03-25-2021 12:20-0500 Systolic blood pressure 125 mm[Hg] Marcelino Andra Other [facility] Other Encounters Encounter Date Encounter Type Care Provider Facility Start: 06-16-2023 End: 06-16-2023 ambulatory SHAIKH KIM Not Available Start: 06-16-2023 End: 06-16-2023 Office outpatient visit 25 minutes Shaikh Kim CALL Work Phone: [facility] Comment on above: Acute pain of right shoulder (Primary Dx) Start: 04-11-2023 End: 04-11-2023 ambulatory Imad Asaad Other [facility] Other Start: 04-11-2023 Encounter by computer link Imad Asaad [facility] Start: 11-25-2022 End: 11-25-2022 ambulatory Marcelino Andra Other [facility] Other Start: 11-25-2022 Office outpatient visit 15 minutes Marcelino Andra [facility] Start: 11-25-2022 Telephone encounter Marcelino Andra [facility] Start: 08-27-2022 End: 08-27-2022 ambulatory Marcelino Andra Other [facility] Other Start: 08-27-2022 Telephone encounter Marcelino Andra [facility] Start: 06-23-2022 End: 06-24-2022 ambulatory SHAIKH Sawyer ALVAREZ Facility:[facility] Start: 01-27-2022 End: 01-28-2022 ambulatory NIDA CHUCK Facility:[facility] Start: 12-02-2021 Office outpatient new 45 minutes Provider Maame Work Phone: [facility] Work Phone: Start: 11-16-2021 End: 11-17-2021 ambulatory MARCELINO ANDRA Facility:[facility] Start: 11-12-2021 End: 11-13-2021 ambulatory MARCELINO ANDRA Facility:[facility] Start: 11-11-2021 End: 11-12-2021 ambulatory MARCELINO ANDRA [facility] [employer] Other Start: 11-11-2021 Telephone encounter Marcelino Andra [facility] Start: 11-10-2021 End: 11-10-2021 ambulatory Marcelino Andra Other [facility] Other Start: 11-10-2021 Telephone encounter Marcelino Andra [facility] Start: 11-08-2021 End: 11-09-2021 ambulatory NIDA CHUCK Facility:[facility] Start: 10-13-2021 End: 10-13-2021 ambulatory NIDA CHUCK Facility:[facility] Start: 10-13-2021 End: 10-13-2021 ambulatory Inda A Chuck Facility:[facility] Start: 09-23-2021 ambulatory MARCELINO ANDRA Facility:[facility] Start: 06-25-2021 End: 07-03-2021 ambulatory Nida A Chuck Facility:[facility] Start: 03-25-2021 End: 03-25-2021 ambulatory Marcelino Andra Other [facility] Other Start: 03-25-2021 Office outpatient visit 15 minutes Marcelino Andra [facility] Start: 03-24-2021 End: 04-07-2021 ambulatory Nida A Chuck [facility] [employer] Other Start: 03-24-2021 Telephone encounter Marcelino Andra [facility] Start: 07-22-2017 End: 07-23-2017 Ambulatory MARBELLA YOUNGTRA Facility:[facility] Start: 06-07-2017 End: 06-08-2017 Ambulatory NICOLETTE DE DIOS Facility:[facility] Procedures Date Procedure Procedure Detail Performing Clinician NEGATED: Highlighted row has not occurred! Total colonoscopy Provider Maame Work Phone: Plan of Treatment Date Care Activity Detail Author Start: 06-27-2023 End: 06-27-2023 Patient encounter procedure 06/27/2023 9:45 AM EST Office Visit [facility] [address] [place] [id number] Shaikh Alvarez MD [address] [place] [id number] [facility] Start: 06-16-2023 End: 06-16-2024 MR Shoulder - right WO contrast MR shoulder right wo IV contrast Imaging Routine Acute pain of right shoulder Expected: 06/16/2023, Expires: 06/16/2024 [facility] Work Phone: Comment on above: Expected: 06/16/2023 , Expires: 06/16/2024 Start: 01-07-2023 Influenza vaccination Influenza Vacc ine (#1) [facility] Start: 01-05-2022 STRESS NUC, Provider : FRANCISCO [facility] NUCLEAR 01,[id number], Status: Pen, Time: 12:00 PM STRESS NUC, Provider: FRANCISCO [facility] NUCLEAR 01,[id number], Status: Pen, Time: 12:00 PM [facility] Work Phone: Start: 01-05-2022 ECHO, Provider: FRANCISCO [facility] ULTRASOUND 01,[id number], Status: Pen, Time: 9:45 AM ECHO, Provider: FRANCISCO [facility] ULTRASOUND 01,[id number], Status: Pen, Time: 9:45 AM [facility] Work Phone: Immunizations Immunization Date Immunization Notes Care Provider Fa cili 10-04-2020 Pfizer-BioNTBubbl COVID-19 Vacc 30 MCG/0.3ML Intramuscular Suspension Provider AMAProvider Work Phone: [phone] [place] [address] Work Phone: 09-07-2020 Pfizer-BioNTech COVID-19 Vacc 30 MCG/0.3ML Intramuscular Suspension Provider AMAProvider Work Phone: [phone] [place] [address] Work Phone: 12-14-2000 diphtheria, tetanus toxoids and acellular pertussis vaccine, unspecified formulation Provider AMAProvider Work Phone: [phone] [address] Work Phone: 12-14-2000 measles, mumps and rubella virus vaccine Provider AMAProvider Work Phone: [phone] [place] [address] Work Phone: 12-14-2000 poliovirus vaccine, inactivated Provider [facility]Provider Work Phone: [phone] [address] Work Phone: 02-06-1997 diphtheria, tetanus toxoids and acellular pertussis vaccine, unspecified formulation Provider AMAProvider Work Phone: [phone] [address] Work Phone: 02-06-1997 haemophilus influenz ae type b vaccine, conjugate unspecified formulation Provider AMAProvider Work Phone: [phone] [place] [address] Work Phone: 02-06-1997 measles, mumps and rubella virus vaccine Provider [facility] Work Phone: [phone] [place] [address] Work Phone: 10-08-1996 diphtheria, tetanus toxoids and acellular pertussis vaccine, unspecified formulation Provider [facility]Provider Work Phone: [phone] [place] [address] Work Phone: 10-08-1996 haemophilus influenz ae type b vaccine, conjugate unspecified formulation Provider [facility]Provider Work Phone: [phone] [place] [address] Work Phone: 10-08-1996 hepatitis B vaccine, pediatric or pediatric/adolescent dosage Provider AMAProvider Work Phone: [phone] [place] [address] Work Phone: 10-08-1996 trivalent poliovirus vaccine, live, oral Provider AMAProvider Work Phone: [facility] Work Phone: 04-02-1996 DTP-Haemophilus influenzae type b conjugate vaccine Provider AMAProvider Work Phone: [facility] Work Phone: 04-02-1996 trivalent poliovirus vaccine, live, oral Provider AMAProvider Work Phone: [facility] Work Phone: 1995 DTP-Haemophilus influenzae type b conjugate vaccine Provider AMAProvider Work Phone: [facility] Work Phone: 1995 hepatitis B vaccine, pediatric or pediatric/adolescent dosage Provider AMAProvider Work Phone: [facility] Work Phone: 1995 trivalent poliovirus vaccine, live, oral Provider AMAProvider Work Phone: [facility] Work Phone: 1995 hepatitis B vaccine, pediatric or pediatric/adolescent dosage Provider AMAProvider Work Phone: [facility] Work Phone: Payers Date Payer Category Payer Private Health Insurance [facility] [id number] 2023 [facility] Health [facility] [id number] 2023-Present [address] [place] [address] [id number] 2021 Unknown [id number] [id number] 1995 Unknown [id number] 2.16.840.1.889884.3.579. 2.718 1995 Unknown [id number] 2.16.840.1.169083.3.579. 2.718 1995 Unknown [id number] 2.16.840.1.987673.3.579. 2.718 1995 Unknown [id number] 2.16.840.1.935482.3.579. 2.718 1995 Unknown [id number] 2.16.840.1.873386.3.579. 2.593 1995 Unknown [id number] 2.16.840.1.857660.3.579. 2.593 1995 Unknown [id number] 2.16.840.1.847067.3.579. 2.593 1995 Unknown [id number] 2.16.840.1.969029.3.579. 2.593 1995 Unknown [id number] 2.16.840.1.240208.3.579. 2.593 1995 Unknown [id number] 2.16.840.1.350261.3.579. 2.593 1995 Unknown [id number] 2.16.840.1.239556.3.579. 2.593 1995 Unknown [id number] 2.16.840.1.134703.3.579. 2.593 1995 Unknown [id number] 2.16.840.1.966946.3.579. 2.1259 1959 Private Health Insurance [id number] 1959 Private Health Insurance [id number] 1959 Self-pay [id number] 1959 Unknown [id number] Private Health Insurance [facility] [id number] [id number] Unknown [id number] Unknown COMMERCIAL Social History Date Type Detail Facility Unknown if ever smoked [facility] Other Start: 06-16-2023 Sex Assigned At [facility] Other Start: 06-16-2023 No illicit drug use No illicit drug use [facility] Work Phone: Comment on above: 1 can of pop daily.; Start: 06-16-2023 Tobacco smoking status NHIS Never smoked tobacco [facility] Start: 06-16-2023 Alcohol intake Lifetime non-drinker (finding) [facility] Start: 1995 Sex Assigned At Not on file [facility] NEGATED: Highlighted rowStart: NINF History of tobacco use Passive smoker [facility] Clinical Notes 03-25-2021 to 06-16-2023 Shaikh Kim MD - 06/16/2023 4:38 PM ESTSalyson Alvarez MD - 06/16/2023 3:45 PM EST Note Date & Type Note Facility 06-16-2023 History of Presen t illness Narrative Associated Problem(s): Acute pain of right shoulder Right shoulder pain - ongoing for a month. Initially intermittent, now more or less persistent for past few days. Pain is also worsening in severity. Restricted ROM mainly on abduction. Patient denies prior injury, surgery on shoulder Patient had an ED visit recently for shoulder pain - XR cervical spine and shoulder - no acute pathology noted. Exam concerning for rotator cuff tear - keeping his arm close to chest, drop arm test positive. Patient unable to return to work as he is right handed and his work is physically demanding requiring him to lift/move objects using his arms. Ordered PT for patient but based on his hx, exam findings - high suspicion of rotator cuff tear and will order an MRI for it. Trial of Prednisone to see if that helps his pain and improve his ROM Subjective Patient ID: Wood Horn is a 27 y.o. male who presents for Shoulder Pain (RIGHT). Shoulder Pain The pain is present in the right shoulder. This is a new problem. The current episode started more than 1 month ago. There has been no history of extremity trauma. The problem occurs constantly. The problem has been gradually worsening. The quality of the pain is described as dull and aching. The pain is at a severity of 8/10. The pain is moderate. Associated symptoms include an inability to bear weight, a limited range of motion and stiffness. Pertinent negatives include no fever, itching, joint locking, joint swelling, numbness or tingling. The symptoms are aggravated by activity. He has tried NSAIDS for the symptoms. The treatment provided mild relief. Family history does not include gout or rheumatoid arthritis. There is no history of diabetes, gout, osteoarthritis or rheumatoid arthritis. Current Outpatient Medications on File Prior to Visit Medication Sig Dispense Refill aMILoride (Midamor) 5 MG tablet Take 10 mg by mouth in the morning and 10 mg before bedtime. potassium chloride CR (K-Tab) 20 MEQ ER tablet Slow Magnesium/Calcium 70-117 MG tablet delayed-release Take 2 tablets by mouth in the morning and 2 tablets before bedtime. No current facility-administered medications on file prior to visit. No Known Allergies Review of System All systems negative except as mentioned in HPI. Visit Vitals BP 110/76 (BP Location: Left arm, Patient Position: Sitting, BP Cuff Size: Large adult) Pulse 72 Temp 97.9 F (Tympanic) Ht 5' 8 Wt 235 lb SpO2 96% BMI 35.73 kg/m Smoking Status Never BSA 2.27 m Patient Health Questionnaire-2 Score: 0 @LABRESULTS@ No images are attached to the encounter. Objective Reports persistent right shoulder pain. Limited ROM. Physical Exam General: NAD, sitting on exam table. HEENT: AT/NC. Resp: Normal RR, CTA b/l CVS: Normal HR, No mumur noted. Neuro: AAOX 3, moving all extremities. Psych: Calm, co operative, no HI/SI. Ext: Right shoulder - anterior shoulder pain, keeping his shoulder close to his chest for comfort, restricted ROM on abduction and very painful. Drop arm test positive. Assessment/Plan Problem List Items Addressed This Visit Acute pain of right shoulder - Primary Right shoulder pain - ongoing for a month. Initially intermittent, now more or less persistent for past few days. Pain is also worsening in severity. Restricted ROM mainly on abduction. Patient denies prior injury, surgery on shoulder Patient had an ED visit recently for shoulder pain - XR cervical spine and shoulder - no acute pathology noted. Exam concerning for rotator cuff tear - keeping his arm close to chest, drop arm test positive. Patient unable to return to work as he is right handed and his work is physically demanding requiring him to lift/move objects using his arms. Ordered PT for patient but based on his hx, exam findings - high suspicion of rotator cuff tear and will order an MRI for it. Trial of Prednisone to see if that helps his pain and improve his ROM Relevant Medications predniSONE (Deltasone) 20 MG tablet Other Relevant Orders Ambulatory referral to Physical Therapy MR shoulder right wo IV contrast Follow up in about 2 weeks (around 06/30/2023). 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 He has unremarkable kidneys on ultrasound. I have advised him to comply with Amiloride. I have advised him to comply with his medication and explained the potential risk of low potassium including cardiac arrest. 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 Continue oral magnesium supplement. [facility] Other 04-21-2023 Evaluation note* Encounter Date Diagnosis Assessment Notes Treatment Notes Treatment Clinical Notes Aug, Hypomagnesemia (ICD-10 - E83.42) Aug, Hypokalemia (ICD-10 - E87.6) [facility] Other 07-06-2022 Evaluation note* Encounter Date Diagnosis Assessment Notes Treatment Notes Treatment Clinical Notes Nov, Leukocytosis (ICD-10 - D72.829) Nov, Hypomagnesemia (ICD-10 - E83.42) Nov, Hypokalemia (ICD-10 - E87.6) [facility] Other 07-04-2022 Chief complaint Narrative - Reported* WOOD HORN is being seen for a consultation for Chuck- elevated trop and CK. * 26-year-old gentleman seen in cardiology consultation at the request of himself and family for further evaluation and management of isolated episode of atypical right-sided chest discomfort over associated with ER visit and subsequent isolated measurement of troponins which were elevated at 179. Patient was dehydrated, was hypokalemic as well, serum potassium of 2.4, creatinine 0.69 mildlyelevated AST and ALT. * ECG demonstrates normal sinus rhythm and is completely normal * I have no emergency room notes from that visit on November 13. Notably, the patient's right sided, atypical chest discomfort was alleviated with rehydration and he was discharged. * Patient otherwise has no positional chest discomfort denies any current chest discomfort is able toroutinely perform daily activities without any problems. There is a family history of Gettleman's syndrome which is associated with hypokalemia and hypomagnesiumia. * Patient does have a family history of coronary disease. * He is currently on amiloride, magnesium oxide and potassium supplementation per nephrology he is not hypertensive has no thromboembolic, bleeding, stroke or previous coronary interventions and deniesany congenital cardiac history. * Impression/recommendations: Highly doubt significant coronary disease however we will proceed with simple routine echocardiogram to assess structural function, routine treadmill stress test to rule out any true aerobic defects or ischemic defects and follow-up as needed [facility] Work Phone: 1(214) 476-277207-04-2022 Chief complaint Narrative - Reported* WOOD HORN is being seen for a consultation for Chuck- elevated trop and CK. * 26-year-old gentleman seen in cardiology consultation at the request of himself and family for further evaluation and management of isolated episode of atypical right-sided chest discomfort over associated with ER visit and subsequent isolated measurement of troponins which were elevated at 179. Patient was dehydrated, was hypokalemic as well, serum potassium of 2.4, creatinine 0.69 mildlyelevated AST and ALT. * ECG demonstrates normal sinus rhythm and is completely normal * I have no emergency room notes from that visit on November 13. Notably, the patient's right sided, atypical chest discomfort was alleviated with rehydration and he was discharged. * Patient otherwise has no positional chest discomfort denies any current chest discomfort is able toroutinely perform daily activities without any problems. There is a family history of Gettleman's syndrome which is associated with hypokalemia and hypomagnesiumia. * Patient does have a family history of coronary disease. * He is currently on amiloride, magnesium oxide and potassium supplementation per nephrology he is not hypertensive has no thromboembolic, bleeding, stroke or previous coronary interventions and deniesany congenital cardiac history. 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 He has unremarkable kidneys on ultrasound. I have advised him to comply with Amiloride. I have sent a refill prescription. 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 Continue oral magnesium supplement. Mar, Leukocytosis (ICD-10 - D72.829) He has a leukocytosis possibly reactive. He is suffering from sore throat. He was testing for Covid and flu and reported was negative. I have advised him to have a follow-up with PCP in repeat labs in 3 weeks to make sure it is resolved. [employer] Other Evaluation noteNo InformationNo[employer] Other Evaluation note* Diagnosis Acute pain of right shoulder- Primary documented in this encounter [facility] Narrative - ReportedNoS[employer] Other History general Narrative - Reported* Type Description Date 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 Hospitalization History low potassium 2013 Hospitalization History low potassium 2018 Hospitalization History low potassium 2018 [facility] Other Summary Purpose Family History Unknown Family Member Name Dates Details No pertinent family history: Mother, Father, Sister, Brother(V49.89, Z78.9) Status:Active Unknown Family Member Name Dates Details No pertinent family history: Mother, Father, Sister, Brother(V49.89, Z78.9) Status:Active Advance Directives No Advanced Directives Records FoundNo Advanced Directives Records FoundNo Advanced Directives Records FoundNo Advanced Directives Records FoundNo Advanced Directives Records Found Reason for Referral Specialty Diagnoses / Procedures Referred By Sonny t Referred To Contact Diagnoses Acute pain of right shoulder Procedures MR shoulder right wo IV contrast Shaikh Alvarez MD [address] [place] [address] [employer] [address] [place] [address] Phone: [phone] Referral ID Status Reason Start Date Expiration Date V isits Requested Visits Authorized [id number] Pending Review 06/16/2023 12/13/2023 1 1 Specialty Diagnoses / Procedures Referred By Sonny t Referred To Contact Physical Therapy Diagnoses Acute pain of right shoulder Procedures OR OFFICE/OUTPATIENT NEW HIGH MDM 60 MINUTES Shaikh Alvarez MD [address] [place] [address] Edmundo Reina, PT [address] [address] Referral ID Status Reason Start Date Expiration Date Visits Requested Visits Authorized [id number] Pending Review Consult and Treat 06/16/2023 12/13/2023 1 1 Additional Source Comments (unrecognized sect ion and content) No Status Records FoundNo Status Records FoundNo Status Records FoundNo Status Records FoundNo Status Records Found INFORMATION SOURCE (unrecogn ized section and content) DATE CREATED AUTHOR 10/28/2017 [facility] DATE CREATED AUTHOR AUTHOR'S ORGANIZ ATION 12/05/2021 [employer] DATE CREATED AUTHOR AUTHOR'S ORGANIZ ATION 02/07/2022 [facility] DATE CREATED AUTHOR [facility]IZ AT[facility] DATE CREATED AUTHOR AUTHOR'S ORGANIZ ATION 06/18/2023 [facility] EPIC REASON FOR VISIT (unrecogniz ed section and content) Reason Comments Shoulder Pain RIGHT Care Teams (unrecognized sec tion and content) 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 This clinical summary was aggregated from multiple sources. Caution should be exercised in using it in the provision of clinical care. This summary normalizes information from multiple sources, and as a consequence, information in this document may materially change the coding, format and clinical context of patient data. In addition, data may be omitted in some cases. CLINICAL DECISIONS SHOULD BE BASED ON THE PRIMARY CLINICAL RECORDS. [email or web address] provides no warranty or guarantee of the accuracy or completeness of information in this document.
== END 2023-06-21 14:26 | disposition home or self-care (01) ==
LOC: MRI 14:25
PROVIDERS: PCP Internal Medicine; Visit Provider Internal Medicine
DX: M25.511 Pain in right shoulder (principal)
CPT/HCPCS: 73221

== ENCOUNTER 2023-07-06 10:26 | Outpatient (OUT) | payer OTHER, SELFPAY ==
--- OUTSIDE RECORDS SUMMARY | 2023-06-24 08:12 | XMS_ITS | CCD ---
Author Name Unknown Address [id number] [place] [address] Organization [facility] Care Team Providers Care Manager Production Name Role Phone OSINOWO, OSIYEMI Unavailable Unavailable OSINOWO, OSIYEMI Unavailable Unavailable NADAUD, ESTUARDO Unavailable Unavailable NADAUD, ESTUARDO Unavailable Unavailable MAVERICK, MARBELLA Unavailable Unavailable MAVERICK, MARBELLA Unavailable Unavailable DAQUAN, GRICEL Unavailable Unavailable DAQUAN, GRICEL Unavailable Unavailable Andra, Marcelino Unavailable Unavailable Unavailable Chuck, Nida A Admitting Unavailable Chuck, Nida A Attending Unavailable Chuck TERMINAL MAKE UP OPERATOR-C, Nida A Primary Care Unavailable Chuck, Nida A Attending Unavailable Chuck TERMINAL MAKE UP OPERATOR-C, Nida A Primary Care Unavailable Chuck, Nida A Admitting Unavailable Chuck, Nida A Attending Unavailable Chuck TERMINAL MAKE UP OPERATOR-C, Nida A Primary Care Unavailable Chuck, Nida A Attending Unavailable Chuck, Nida A Admitting Unavailable Chuck TERMINAL MAKE UP OPERATOR-C, Nida A Primary Care Unavailable ANDRA, MARCELINO Admitting Unavailable ANDRA, MARCELINO Attending Unavailable CHUCK, NIDA Primary Care Unavailable ANDRA, MARCELINO Consulting Unavailable FAWWAD, BURKS H Admitting Unavailable FAWWAD, BURKS H Attending Unavailable FAWWAD, BURKS H Primary Care Unavailable FAWWAD, BURKS H Consulting Unavailable ANDRA, MARCELINO Admitting Unavailable ANDRA, MARCELINO Attending Unavailable CHUCK, NIDA Primary Care Unavailable ANDRA, MARCELINO Consulting Unavailable ANDRA, MARCELINO Admitting Unavailable ANDRA, MARCELINO Attending Unavailable CHUCK, NIDA Primary Care Unavailable ANDRA, MARCELINO Consulting Unavailable CHUCK, NIDA Admitting Unavailable CHUCK, NIDA Attending Unavailable CHUCK, NDIA Primary Care Unavailable CHUCK, NIDA Consulting Unavailable CHUCK, NIDA Primary Care Unavailable MARCELINO, DR ESTUARDO Marquez Admitting Unavailable MARCELINO, DR ESTUARDO Marquez Attending Unavailable DR ESTUARDO BENSON Consulting Unavailable CHUCK, NIDA Primary Care Unavailable SEBAS ., DR HALIMA Martell Admitting Unavailable SEBAS ., DR HALIMA Martell Attending Unavailable MINDY FAN Consulting Unavailable ONIEL WILSON Unavailable ANDRAMARCELINO Admitting Unavailable ANDRAMARCELINO HARRY Attending Unavailable CHUCK, NIDA Primary Care Unavailable Asaad, Imad Unavailable SHAIKH ALVAREZ Attending Unavailable Shaikh Alvarez MD Primary Care Provider Medications Current Medications Medication Drug Class(es) Dates Sig (Normalized) Sig (Original) aMILoride hydrochloride 5 mg oral tablet (14 sources) Potassium-sparing Diuretic take 2 tablets by mouth in the morning aMILoride (Midamor) 5 MG tablet Take 10 mg by mouth in the morning and 10 mg before bedtime. 0 Active take 2 tablets by mouth every tw elve hours magnesium chloride 535 mg delayed release oral tablet (5 sources) Start: 11-26-2022 take 2 tablets by mouth in the morning Slow Magnesium/Calcium 70-117 MG tablet delayed-release Take 2 tablets by mouth in the morning and 2 tablets before bedtime. 0 11/26/2022 Active Start: 12-25-2018 Slow Magnesium /Calcium 70-117 MG 2 Tablet twice daily Orally bid for 90 day(s) Dec, Active Start: 12-25-2018 potassium chloride 20 meq extended release oral tablet (14 sources) Start: 11-25-2022 potassium chlo ride CR (K-Tab) 20 MEQ ER tablet take 6 tablets by [facility] every twelve hours Potassium Chloride ER 20 MEQ 6 tablets Orally bid for 90 day(s) Active take 6 tablets by mo ut every twelve hours predniSONE 20 mg oral tablet (3 sources) Start: 06-16-2023 End: 06-25-2023 take 1 [...] enzyme levels] Episodic Other non-traumatic joint disorders (5 sources) Pain in right shoulder; Translations: [Pain in joint, shoulder region] Onset: 06-16-2023 06-16-2023 Episodic Other nutritional; endocrine; and metabolic disorders (12 sources) Gitelman syndrome; 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 Other nutritional; endocrine; and metabolic disorders (9 sources) Hypomagnesemia; Translations: [HYPOMAGNESEMIA] Onset: 03-25-2021 Resolved: 11-11-2021 Chronic Other nutritional; endocrine; and metabolic disorders (2 sources) Obesity; Translations: [Obesity, unspecified] Chronic Other nutritional; endocrine; and metabolic disorders (2 sources) Hypomagnesemia; 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 Other nutritional; endocrine; and metabolic disorders (3 sources) Disorder of magnesium metabolism; Translations: [Disorders of magnesium metabolism, 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 06-16-2023 Chronic Other screening for suspected conditions (not mental disorders or infectious disease) (4 sources) Encounter for screening for diabetes mellitus; Translations: [ENCOUNTER FOR SCREENING FOR DM] Onset: 06-23-2022 Episodic Other upper respiratory disease (3 sources) Seasonal allergic rhinitis; Translations: [Other seasonal allergic rhinitis] Onset: 06-16-2023 06-16-2023 Chronic Sprains and strains (1 source) Strain of infraspinatus tendon; Translations: [Strain of other muscles, fascia and tendons at shoulder and upper arm level, right arm, subsequent encounter] 06-22-2023 Episodic Unclassified (1 source) Unknown / UNK(Unknown) Onset: [...] 11-08-2021 Episodic Other aftercare (1 source) Other skilled nursing (current) drug therapy; Translations: [OTH NEW ORDER CLERK CURRENT DRUG THERAPY] Onset: 10-14-2021 Episodic Other [...] Facility Magnesiumon 11-25-2022 Magnesium [Mass/Vol] 1.1 mg/dL [facility] Other Renal Function Panelon 11-25 Albumin [Mass/Vol] 3.9 g/dL [facility] Other Calcium [Mass/Vol] 8.8 mg/dL [facility] Other Chloride [Moles/Vol] 96 mmol/L [facility] Other CO2 [Moles/Vol] 32.9 mmol/L [facility] Other Creatinine [Mass/Vol] 0.83 mg/dL [facility] Other Glucose [Mass/Vol] 138 mg/dL [facility] Other Phosphate [Mass/Vol] 4.0 mg/dL [facility] Other Potassium [Moles/Vol] 2.4 mmol/L [facility] Other Sodium [Moles/Vol] 139 mmol/L [facility] Other Urea nitrogen [Mass/Vol] 13.0 mg/dL [facility] Other Renal Function Panel [facility] Other Renal Function Panel >60 [facility] Other GLYCOHEMOGLOBIN A1Con 2022 ADA RECOMMENDATION SEE BELOW Normal [facility] Comment on above: Result Comment: ADA RECOMMENDED LIMIT 4.0 - 6.0 ADA THERAPEUTIC TARGET < 7.0 ACTION SUGGESTED > 7.0 Performed By: #### A 1C #### [facility] [address] [place] [address] Dr. Jossue Centeno Glucose [Mass/Vol] 108 mg/dL Normal [facility] Comment on above: Performed By: #### A 1C #### [facility] [address] [place] [address] Dr. Jossue Centeno HbA1c (Bld) [Mass fraction] 5.4 % Normal 4.5-6.2 [facility] Comment on above: Performed By: #### A 1C #### [facility] [address] [place] [address] Dr. Jossue Centeno Outside Recordson 01-28-2022 Outside Records [id number] 85#1.00OTGTIFF [facility] CBC AUTO DIFFon 01-27-2022 BASO # 0.1 103/ul Normal 0.0-0.1 [facility] Comment on above: Performed By: #### C BC #### [facility] [address] [place] [address] Dr. Jossue Centeno Basophils/100 WBC (Bld) 0.8 % Normal 0.2-2.0 [facility] Comment on above: Performed By: #### C BC #### [facility] [address] [place] [address] Dr. Jossue Centeno EO # 0.6 103/ul Normal 0.0-0.7 [facility] Comment on above: Performed By: #### C BC #### [facility] [address] [place] [address] Dr. Jossue Centeno Eosinophils/100 WBC (Bld) 5.8 % Normal 0.9-7.0 [facility] Comment on above: Performed By: #### C BC #### [facility] [address] [place] [address] Dr. Jossue Centeno Erythrocyte distribution width (RBC) [Ratio] 12.4 % Normal 11.0-15.0 [facility] Comment on above: Performed By: #### C BC #### [facility] [address] [place] [address] Dr. Jossue Centeno Hematocrit (Bld) [Volume fraction] 47.4 % Normal 42.0-54.0 [facility] Comment on above: Performed By: #### C BC #### [facility] [address] [place] [address] Dr. Jossue Centeno Hemoglobin (Bld) [Mass/Vol] 16.7 g/dL Normal 14.0-18.0 [facility] Comment on above: Performed By: #### C BC #### [facility] [address] [place] [address] Dr. Jossue Centeno IG # 0.02 10e3/ul Normal 0.00-0.03 [facility] Comment on above: Performed By: #### C BC #### [facility] [address] [place] [address] Dr. Jossue Centeno IG % 0.2 % Normal 0.0-0.5 [facility] Comment on above: Performed By: #### C BC #### [facility] [address] [place] [address] Dr. Jossue Centeno LYMPH # 2.2 103/ul Normal 1.2-3.8 [facility] Comment on above: Performed By: #### C BC #### [facility] [address] [place] [address] Dr. Jossue Centeno Lymphocytes/100 WBC (Bld) 23.1 % Normal 20.5-60.0 [facility] Comment on above: Performed By: #### C BC #### [facility] [address] [place] [address] Dr. Jossue Centeno MANUAL DIFF REQ NO Normal [facility] Comment on above: Performed By: #### C BC #### [facility] [address] [place] [address] Dr. Jossue Centeno MCH (RBC) [Entitic mass] 28.2 pg Normal 25.9-34.0 [facility] Comment on above: Performed By: #### C BC #### [facility] [address] [address] [address] Jossue Centeno MCHC (RBC) [Mass/Vol] 35.2 g/dL Normal 29.9-35.2 [facility] Comment on above: Performed By: #### C BC #### [facility] [address] [address] [address] Jossue Centeno MCV (RBC) [Entitic vol] 79.9 fL Critically low 80.0-94.0 [facility] Comment on above: Performed By: #### C BC #### [facility] [address] [place] [address] Dr. Jossue Centeno MONO # 0.7 103/ul Normal 0.3-0.8 [facility] Comment on above: Performed By: #### C BC #### [facility] [address] [place] [address] Dr. Jossue Centeno Monocytes/100 WBC (Bld) 7.6 % Normal 1.7-12.0 [facility] Comment on above: Performed By: #### C BC #### [facility] [address] [place] [address] Dr. Jossue Centeno NEUT # 5.9 103/ul Normal 1.4-6.5 [facility] Comment on above: Performed By: #### C BC #### [facility] [address] [place] [address] Dr. Jossue Centeno Neutrophils/100 WBC (Bld) 62.5 % Normal 43.0-75.0 [facility] Comment on above: Performed By: #### C BC #### [facility] [address] [place] [address] Dr. Jossue Centeno Platelet mean volume (Bld) [Entitic vol] 8.5 fL Critically low 9.5-13.5 [facility] Comment on above: Performed By: #### C BC #### [facility] [address] [place] [address] Dr. Jossue Centeno PLT 335 103/ul Normal 150-450 [facility] Comment on above: Performed By: #### C BC #### [facility] [address] [address] [address] Jossue Centeno RBC 5.93 106/ul Normal 4.70-6.10 [facility] Comment on above: Performed By: #### C BC #### [facility] [address] [place] [address] Dr. Jossue Centeno WBC 9.5 103/ul Normal 4.0-11.0 [facility] Comment on above: Performed By: #### C BC #### [facility] [address] [place] [address] Dr. Jossue Centeno MAGNESIUMon 01-27-2022 Magnesium [Mass/Vol] 1.5 mg/dL Critically low 1.8-2.4 [facility] Comment on above: Performed By: #### K #### [facility] [address] [place] [address] Dr. Jossue Centeno PROF 14(COMP METB)on 022 Albumin [Mass/Vol] 4.1 g/dL Normal 3.4-5.0 [facility] Comment on above: Performed By: #### M G, CMP #### [facility] [address] [place] [address] Dr. Jossue Centeno Albumin/Globulin [Mass ratio] 1.0 {ratio} [facility] Comment on above: Performed By: #### M G, CMP #### [facility] [address] [place] [address] Dr. Jossue Centeno ALP [Catalytic activity/Vol] 107 U/L Normal 46-116 [facility] Comment on above: Performed By: #### M G, CMP #### [facility] [address] [place] [address] Dr. Jossue Centeno ALT [Catalytic activity/Vol] 50 U/L Normal 16-63 [facility] Comment on above: Performed By: #### M G, CMP #### [facility] [address] [place] [address] Dr. Jossue Centeno Anion gap [Moles/Vol] 12.1 mmol/L Normal [facility] Comment on above: Performed By: #### M G, CMP #### [facility] [address] [address] [address] Jossue Centeno AST [Catalytic activity/Vol] 25 U/L Normal 15-37 [facility] Comment on above: Performed By: #### M G, CMP #### [facility] [address] [address] [address] Jossue Centeno Bilirubin [Mass/Vol] 0.6 mg/dL Normal 0.2-1.0 [facility] Comment on above: Performed By: #### M G, CMP #### [facility] [address] [address] [address] Jossue Centeno Calcium [Mass/Vol] 9.3 mg/dL Normal 8.5-10.1 [facility] Comment on above: Performed By: #### M G, CMP #### [facility] [address] [place] [address] Dr. Jossue Centeno Chloride [Moles/Vol] 97 mmol/L Critically low 98-107 [facility] Comment on above: Performed By: #### M G, CMP #### [facility] [address] [place] [address] Dr. Jossue Centeno CO2 [Moles/Vol] 32.1 mmol/L Critically high 21.0-32.0 [facility] Comment on above: Performed By: #### M G, CMP #### [facility] [address] [place] [address] Dr. Jossue Centeno Creatinine [Mass/Vol] 0.76 mg/dL Normal 0.70-1.30 [facility] Comment on above: Performed By: #### M G, CMP #### [facility] [address] [place] [address] Dr. Jossue Centeno EGFR-AF CITIZEN OF [place] >60 Normal >=60 [facility] Comment on above: Performed By: #### M G, CMP #### [facility] [address] [address] [address] Jossue Centeno EGFR-NON AF CITIZEN OF [place] >60 Normal >=60 [facility] Comment on above: Performed By: #### M G, CMP #### [facility] [address] [address] [address] Jossue Centeno Globulin (S) [Mass/Vol] 4.1 g/dL Normal [facility] Comment on above: Performed By: #### M G, CMP #### [facility] [address] [address] [address] Jossue Centeno Glucose [Mass/Vol] 92 mg/dL Normal 74-106 [facility] Comment on above: Performed By: #### M G, CMP #### [facility] [address] [place] [address] Dr. Jossue Centeno Potassium [Moles/Vol] 3.2 mmol/L Critically low 3.5-5.1 [facility] Comment on above: Performed By: #### M G, CMP #### [facility] [address] [place] [address] Dr. Jossue Centeno Protein [Mass/Vol] 8.2 g/dL Normal 6.4-8.2 [facility] Comment on above: Performed By: #### M G, CMP #### [facility] [address] [place] [address] Dr. Jossue Centeno Sodium [Moles/Vol] 138 mmol/L Normal 136-145 [facility] Comment on above: Performed By: #### M G, CMP #### [facility] [address] [place] [address] Dr. Jossue Centeno Urea nitrogen [Mass/Vol] 11.0 mg/dL Normal 7.0-18.0 [facility] Comment on above: Performed By: #### M G, CMP #### [facility] [address] [place] [address] Dr. Jossue Centeno Urea nitrogen/Creatinine [Mass ratio] 14.5 mg/mg Normal [facility] Comment on above: Performed By: #### M G, CMP #### [facility] [address] [place] [address] Dr. Jossue Centeno Outside Recordson 12-08-2021 Outside Records [id number] 03#1.00OTGTIFF [facility] Office Visit (Cardiology)on 12-02-2021 Follow-up visit Diagnoses/Problems Assessed Atypical chest pain (786.59) (R07.89) Cardiac enzymes elevated (790.5) (R74.8) Hypokalemia (276.8) (E87.6) Hypomagnesemia (275.2) (E83.42) Class 1 obesity with body mass index (BMI) of 31.0 to 31.9 in adult (278.00,V85.31) (E66.9,Z68.31) Never a smoker Orders Atypical chest pain Echocardiogram; Status:Hold For - Scheduling,Retrospe ctive Authorization; Requested for:[id number]; Atypical chest pain, Cardiac enzymes elevated, Hypokalemia, Hypomagnesemia Cardiac Stress Test; Status:Hold For - Scheduling,Retrospe ctive Authorization; Requested for:[id number]; Class 1 obesity with body mass index (BMI) of 31.0 to 31.9 in adult Healthy Weight Tips; Status:Complete - Retrospective Authorization; Done: [id number] SocHx: Never a smoker Tobacco Use Screening; Status:Complete; Done: [id number] Tobacco Use Screening; Status:Complete; Done: [id number] Tobacco Use Screening; Status:Complete; Done: [id number] Patient Instructions By signing my name below, [...] negative for complaint. Vitals Vital Signs Recorded: [id number] 09:05AMRecorded: 17Sdr4636 09:04AM Dcrgklkl372, LUE, Mafjtxo348, RUE, Sitting Qdzmlhmqt41, LUE, Yatcyum34, RUE, Sitting Heart Rate66, Apical Height5 ft 10 in Grgpwc947 lb BMI Dyatmnxixo78.14 kg/m2 BSA Calculated2.16 Tobacco Useb) No PHQ-2 [...] 2+ bilate (more content not included)... Normal Tier 3 Tobacco Screening.on 022 Adult depression screening assessment No [facility] Work Phone: Fall risk assessment c) Not medically indicated [facility] Work Phone: Tobacco use status [facility] b) No [facility] Work Phone: POTASSIUMon 11-16-2021 Potassium [Moles/Vol] 3.8 mmol/L Normal 3.5-5.1 [facility] Comment on above: Performed By: #### K #### [facility] [address] [place] [address] Dr. Jossue Centeno Lab - Other Lab [facility] Lab - Other Lab Results [id number] 09#1.00OTGTIFF Normal [facility] POTASSIUMon 11-12-2021 Potassium [Moles/Vol] 3.7 mmol/L Normal 3.5-5.1 [facility] Comment on above: Performed By: #### K #### [facility] [address] [place] [address] Dr. Jossue Centeno HEMOGRAM AND PLATELon 2021 Hematocrit (Bld) [Volume fraction] 45.0 % Normal 42.0-54.0 [facility] Comment on above: Performed By: #### H H #### [facility] [address] [place] [address] Dr. Jossue Centeno Hemoglobin (Bld) [Mass/Vol] 15.1 g/dL Normal 14.0-18.0 [facility] Comment on above: Performed By: #### H H #### [facility] [address] [address] [address] Jossue Centeno MCH (RBC) [Entitic mass] 27.9 pg Normal 25.9-34.0 [facility] Comment on above: Performed By: #### H H #### [facility] [address] [place] [address] Dr. Jossue Centeno MCHC (RBC) [Mass/Vol] 33.6 g/dL Normal 29.9-35.2 [facility] Comment on above: Performed By: #### H H #### [facility] [address] [address] [address] Jossue Centeno MCV (RBC) [Entitic vol] 83.2 fL Normal 80.0-94.0 [facility] Comment on above: Performed By: #### H H #### [facility] [address] [place] [address] Dr. Jossue Centeno PLT 299 103/ul Normal 150-450 [facility] Comment on above: Performed By: #### H H #### [facility] [address] [place] [address] Dr. Jossue Centeno RBC 5.41 106/ul Normal 4.70-6.10 [facility] Comment on above: Performed By: #### H H #### [facility] [address] [place] [address] Dr. Josseu Centeno WBC 10.2 103/ul Normal 4.0-11.0 [facility] Comment on above: Performed By: #### H H #### [facility] [address] [place] [address] Dr. Jossue Centeno MAGNESIUMon 11-11-2021 Magnesium [Mass/Vol] 1.3 mg/dL Critically low 1.8-2.4 [facility] Comment on above: Performed By: #### K #### [facility] [address] [place] [address] Dr. Jossue Centeno Outside Recordson 11-11-2021 Outside Records [id number] 03#1.00OTGTIFF Normal [facility] RENAL FUNCTION PANELon 11-11 Albumin [Mass/Vol] 4.1 g/dL Normal 3.4-5.0 [facility] Comment on above: Performed By: #### K #### [facility] [address] [address] [address] Jossue Centeno Calcium [Mass/Vol] 9.4 mg/dL Normal 8.5-10.1 [facility] Comment on above: Performed By: #### K #### [facility] [address] [place] [address] Dr. Jossue Centeno Chloride [Moles/Vol] 102 mmol/L Normal 98-107 [facility] Comment on above: Performed By: #### K #### [facility] [address] [place] [address] Dr. Jossue Centeno CO2 [Moles/Vol] 30.7 mmol/L Normal 21.0-32.0 [facility] Comment on above: Performed By: #### K #### [facility] [address] [place] [address] Dr. Jossue Centeno Creatinine [Mass/Vol] 0.83 mg/dL Normal 0.70-1.30 [facility] Comment on above: Performed By: #### K #### [facility] [address] [place] [address] Dr. Jossue Centeno EGFR-AF CITIZEN [place] >60 Normal >=60 [facility] Comment on above: Performed By: #### K #### [facility] [address] [place] [address] Dr. Jossue Centeno EGFR-NON AF CITIZEN OF [place] >60 Normal >=60 [facility] Comment on above: Performed By: #### K #### [facility] [address] [place] [address] Dr. Jossue Centeno Glucose [Mass/Vol] 94 mg/dL Normal 74-106 [facility] Comment on above: Performed By: #### K #### [facility] [address] [place] [address] Dr. Jossue Centeno Phosphate [Mass/Vol] 2.4 mg/dL Critically low 2.6-4.7 [facility] Comment on above: Performed By: #### K #### [facility] [address] [place] [address] Dr. Jossue Centeno Potassium [Moles/Vol] 5.7 mmol/L Critically high 3.5-5.1 [facility] Comment on above: Performed By: #### K #### [facility] [address] [place] [address] Dr. Jossue Centeno Sodium [Moles/Vol] 139 mmol/L Normal 136-145 [facility] Comment on above: Performed By: #### K #### [facility] [address] [place] [address] Dr. Jossue Centeno Urea nitrogen [Mass/Vol] 13.0 mg/dL Normal 7.0-18.0 [facility] Comment on above: Performed By: #### K #### [facility] [address] [place] [address] Dr. Jossue Centeno CARDIAC ESTUARDO 3-6on 2 CK [Catalytic activity/Vol] 536 U/L Critically high 39-308 [facility] Comment on above: Performed By: #### K #### [facility] [address] [place] [address] Dr. Jossue Centeno CK.MB [Mass/Vol] 3.09 ng/mL Normal <=3.60 [facility] Comment on above: Performed By: #### K #### [facility] [address] [place] [address] Dr. Jossue Centeno HSTROP 179.4 pg/mL Critically high 4.0-76.1 [facility] Comment on above: Result Comment: CUT- OFF POINTS HAVE BEEN ESTABLISHED BASED ON THE FOURTH UNIVERSAL DEFINITIONS OF MYOCARDIAL INFARCTION. THE UPPER REFERENCE LIMIT (URL) OF TROPONIN, DEFINED THE 99TH PERCENTILE OF cTnI DISTRIBUTION IN A REFERENCE POPULATION, HAS BEEN CONFIRMED THE DECISION THRESHOLD FOR [place] DIAGNOSIS. TEST REPEATED. CRITICAL VALUE VERIFIED Performed By: #### K #### [facility] [address] [place] [address] Dr. Jossue Centeno CARDIAC ESTUARDO ADMITon 022 CK [Catalytic activity/Vol] 607 U/L Critically high 39-308 [facility] Comment on above: Performed By: #### B MARY QUEEN #### [facility] [address] [place] [address] Dr. Jossue Centeno CK.MB [Mass/Vol] 3.82 ng/mL Critically high <=3.60 [facility] Comment on above: Result Comment: TEST REPEATED. CRITICAL VALUE VERIFIED Performed By: #### B MARY QUEEN #### [facility] [address] [place] [address] Dr. Jossue Centeno HSTROP 187.8 pg/mL Critically high 4.0-76.1 [facility] Comment on above: Result Comment: CUT- OFF POINTS HAVE BEEN ESTABLISHED BASED ON THE FOURTH UNIVERSAL DEFINITIONS OF MYOCARDIAL INFARCTION. THE UPPER REFERENCE LIMIT (URL) OF TROPONIN, DEFINED THE 99TH PERCENTILE OF cTnI DISTRIBUTION IN A REFERENCE POPULATION, HAS BEEN CONFIRMED THE DECISION THRESHOLD FOR [place] DIAGNOSIS. TEST REPEATED. CRITICAL VALUE VERIFIED Performed By: #### B MARY QUEEN #### [facility] [address] [place] [address] Dr. Jossue Centeno MELVI 100 ng/mL Critically high 16-96 [facility] Comment on above: Performed By: #### B MARY QUEEN #### [facility] [address] [place] [address] Dr. Jossue Centeno CBC AUTO DIFFon 11-08-2021 BASO # 0.1 103/ul Normal 0.0-0.1 [facility] Comment on above: Performed By: #### K #### [facility] [address] [place] [address] Dr. Jossue Centeno Basophils/100 WBC (Bld) 0.5 % Normal 0.2-2.0 [facility] Comment on above: Performed By: #### K #### [facility] [address] [place] [address] Dr. Jossue Centeno EO # 0.2 103/ul Normal 0.0-0.7 [facility] Comment on above: Performed By: #### K #### [facility] [address] [place] [address] Dr. Jossue Centeno Eosinophils/100 WBC (Bld) 1.3 % Normal 0.9-7.0 [facility] Comment on above: Performed By: #### K #### [facility] [address] [place] [address] Dr. Jossue Centeno Erythrocyte distribution width (RBC) [Ratio] 12.6 % Normal 11.0-15.0 [facility] Comment on above: Performed By: #### K #### [facility] [address] [place] [address] Dr. Jossue Centeno Hematocrit (Bld) [Volume fraction] 41.4 % Critically low 42.0-54.0 [facility] Comment on above: Performed By: #### K #### [facility] [address] [place] [address] Dr. Jossue Centeno Hemoglobin (Bld) [Mass/Vol] 14.5 g/dL Normal 14.0-18.0 [facility] Comment on above: Performed By: #### K #### [facility] [address] [place] [address] Dr. Jossue Centeno IG # 0.05 10e3/ul Critically high 0.00-0.03 [facility] Comment on above: Performed By: #### K #### [facility] [address] [place] [address] Dr. Jossue Centeno IG % 0.4 % Normal 0.0-0.5 [facility] Comment on above: Performed By: #### K #### [facility] [address] [place] [address] Dr. Jossue Centeno LYMPH # 1.6 103/ul Normal 1.2-3.8 [facility] Comment on above: Performed By: #### K #### [facility] [address] [place] [address] Dr. Jossue Centeno Lymphocytes/100 WBC (Bld) 12.4 % Critically low 20.5-60.0 [facility] Comment on above: Performed By: #### K #### [facility] [address] [place] [address] Dr. Jossue Centeno MANUAL DIFF REQ NO Normal [facility] Comment on above: Performed By: #### K #### [facility] [address] [place] [address] Dr. Jossue Centeno MCH (RBC) [Entitic mass] 28.3 pg Normal 25.9-34.0 [facility] Comment on above: Performed By: #### K #### [facility] [address] [place] [address] Dr. Jossue Centeno MCHC (RBC) [Mass/Vol] 35.0 g/dL Normal 29.9-35.2 [facility] Comment on above: Performed By: #### K #### [facility] [address] [place] [address] Dr. Jossue Centeno MCV (RBC) [Entitic vol] 80.7 fL Normal 80.0-94.0 [facility] Comment on above: Performed By: #### K #### [facility] [address] [place] [address] Dr. Jossue Centeno MONO # 0.9 103/ul Critically high 0.3-0.8 [facility] Comment on above: Performed By: #### K #### [facility] [address] [place] [address] Dr. Jossue Centeno Monocytes/100 WBC (Bld) 6.9 % Normal 1.7-12.0 [facility] Comment on above: Performed By: #### K #### [facility] [address] [place] [address] Dr. Jossue Centeno NEUT # 10.3 103/ul Critically high 1.4-6.5 [facility] Comment on above: Performed By: #### K #### [facility] [address] [place] [address] Dr. Jossue Centeno Neutrophils/100 WBC (Bld) 78.5 % Critically high 43.0-75.0 [facility] Comment on above: Performed By: #### K #### [facility] [address] [place] [address] Dr. Jossue Centeno Platelet mean volume (Bld) [Entitic vol] 9.5 fL Normal 9.5-13.5 [facility] Comment on above: Performed By: #### K #### [facility] [address] [place] [address] Dr. Jossue Centeno PLT 306 103/ul Normal 150-450 [facility] Comment on above: Performed By: #### K #### [facility] [address] [place] [address] Dr. Jossue Centeno RBC 5.13 106/ul Normal 4.70-6.10 [facility] Comment on above: Performed By: #### K #### [facility] [address] [place] [address] Dr. Jossue Centeno WBC 13.1 103/ul Critically high 4.0-11.0 [facility] Comment on above: Performed By: #### K #### [facility] [address] [place] [address] Dr. Jossue Centeno LIVER PROFILEon 11-08-2021 Albumin [Mass/Vol] 3.8 g/dL Normal 3.4-5.0 [facility] Comment on above: Performed By: #### L IVER #### [facility] [address] [place] [address] Dr. Jossue Centeno Albumin/Globulin [Mass ratio] 1.1 {ratio} Normal [facility] Comment on above: Performed By: #### L IVER #### [facility] [address] [place] [address] Dr. Jossue Centeno ALP [Catalytic activity/Vol] 91 U/L Normal 46-116 [facility] Comment on above: Performed By: #### L IVER #### [facility] [address] [place] [address] Dr. Jossue Centeno ALT [Catalytic activity/Vol] 69 U/L Critically high 16-63 [facility] Comment on above: Performed By: #### L IVER #### [facility] [address] [place] [address] Dr. Jossue Centeno AST [Catalytic activity/Vol] 40 U/L Critically high 15-37 [facility] Comment on above: Performed By: #### L IVER #### [facility] [address] [address] [address] Jossue Centeno BILI, CONJUGATED 0.1 mg/dL Normal 0.0-0.2 [facility] Comment on above: Performed By: #### L IVER #### [facility] [address] [address] [address] Jossue Centeno Bilirubin [Mass/Vol] 0.6 mg/dL Normal 0.2-1.0 [facility] Comment on above: Performed By: #### L IVER #### [facility] [address] [address] [address] Jossue Centeno Globulin (S) [Mass/Vol] 3.4 g/dL Normal [facility] Comment on above: Performed By: #### L IVER #### [facility] [address] [place] [address] Dr. Jossue Centeno Protein [Mass/Vol] 7.2 g/dL Normal 6.4-8.2 [facility] Comment on above: Performed By: #### L IVER #### [facility] [address] [address] [address] Jossue Centeno PROF CHEM 8 (BAS METB)on Anion gap [Moles/Vol] 10.3 mmol/L Normal [facility] Comment on above: Performed By: #### B BERNICE, CMADM #### [facility] [address] [place] [address] Dr. Jossue Centeno Calcium [Mass/Vol] 8.9 mg/dL Normal 8.5-10.1 [facility] Comment on above: Performed By: #### B MP, CMADM #### [facility] [address] [place] [address] Dr. Jossue Centeno Chloride [Moles/Vol] 97 mmol/L Critically low 98-107 [facility] Comment on above: Performed By: #### B MP, CMADM #### [facility] [address] [place] [address] Dr. Jossue Centeno CO2 [Moles/Vol] 34.0 mmol/L Critically high 21.0-32.0 [facility] Comment on above: Performed By: #### B MARY QUEEN #### [facility] [address] [place] [address] Dr. Jossue Centeno Creatinine [Mass/Vol] 0.89 mg/dL Normal 0.70-1.30 [facility] Comment on above: Performed By: #### B JI QUEENDM #### [facility] [address] [address] [address] Jossue Centeno EGFR-AF CITIZEN OF [place] >60 Normal >=60 [facility] Comment on above: Performed By: #### B MARY QUEEN #### [facility] [address] [place] [address] Dr. Jossue Centeno EGFR-NON AF CITIZEN OF [place] >60 Normal >=60 [facility] Comment on above: Performed By: #### B MARY QUEEN #### [facility] [address] [place] [address] Dr. Jossue Centeno Glucose [Mass/Vol] 98 mg/dL Normal 74-106 [facility] Comment on above: Performed By: #### B MARY QUEEN #### [facility] [address] [place] [address] Dr. Jossue Centeno Potassium [Moles/Vol] 2.4 mmol/L Critically low 3.5-5.1 [facility] Comment on above: Result Comment: TEST REPEATED. CRITICAL VALUE VERIFIED Performed By: #### B MARY QUEEN #### [facility] [address] [place] [address] Dr. Jossue Centeno Sodium [Moles/Vol] 139 mmol/L Normal 136-145 [facility] Comment on above: Performed By: #### B MARY QUEEN #### [facility] [address] [place] [address] Dr. Jossue Centeno Urea nitrogen [Mass/Vol] 14.0 mg/dL Normal 7.0-18.0 [facility] Comment on above: Performed By: #### B MARY QUEEN #### [facility] [address] [place] [address] Dr. Jossue Centeno Urea nitrogen/Creatinine [Mass ratio] 15.7 mg/mg Normal [facility] Comment on above: Performed By: #### B BERNICE, MARY #### [facility] [id number] Jossue Centeno XR CHEST 2 Von [...] by: ONIEL WILSON Date: 2021-11-08 20:44 Normal [facility] Coding Summaryon 06-25-2021 Coding Summary HTMLBase 64 LvyicqamKPi5iDf+PGh lYWQ+GX3PHZLkX14ppI VmpF9SH5dQKM2QDNVBN DSATI7VWB2olKQ5DIwy L7GtkzOl DejndGVlDL82GIp0JMR 1zPhiPTwyhQ0nwNWtJ2 t3TtSwVM34rX21PMmyS SDoXsS9OjLcdxxxyLEi I7ewIfImvALzNhk+PHR hYmxlIHdpZHRoPScxMD XhQrGplFxtEP8hUi1qN GVyLWNvbGxhcHNlOiBj w1ljCIWdHIykIF8quNo rJ7WnvBF4MBRgu4o2Ey 48dHI+MZIyMSE0bDnmI Eobv576EaNfq0llLEC1 qNVnANlfNNA8R33sm3L 5JTGgFCTeXQN9iVG3eS 6foPqlthbyC2HrjMQkT mW1GQQ5pCLooJ8yhUfq tnvroN4uAmk+I47QKG2 AHWGZJQ4ZXhc8J8JbZf wvdHI+PH30SZQoKF87d FKprAEid3crrSs6YgBk MUYtYNN7aVstESrmk3J iMLDtR47bkHWje7E4LK AhkCsfpONpWiJczLH5t Q0cWVnfhvafg9zbjbsr Rsyrg8htbh47wP30J69 bMGiqWADtMBM8PEZaLJ TpiMhpbh9ezB5mZm5+I Saxs1nxh4hngQd8RaRd YNHohyGlyVowYYN2p5N kAf50N5NoyDezm1AwJu g5zb14zKOxr7E1eOB8Q NxbOBTesM0aVKakEsK7 THAaMjWjsH18uYMiUGt pPo3yiJdbjVtoXK1vZT UgoxoiMAFzqH0wHABxq ACwpJaoHZ1lAKWblafr v513AtLqGTT9XTHdzBD nF1JroC2gIuEeVGSfXF KyB8CvnMXmBSwgU178O WaePhD4DWKddgBdA1Cd SUCsqFdyWpP1q0Z8Zt8 Ph9BetorlGRY7OSmuDW QgHmV6LjYnXmM0W8ZdW bf9LJKysBkpPB9eB2Ph HSXevestlrgsuZP9FJK zCLYmzW76hMLhKWsfZd 5en6V3j998RKJwPYIly M29Qy9heMylUIMocAWA aY7ovwnfs3gzjxtoNgS xDNYxUKm4AJm3OGVthZ oiHbFkPVJ6EoA7VRK7t NQdfK2epYgbdhbjvG6z Oyc+N78pvM3cMIT7SGT 7lrtiPBGpogMkYD99WX 96J6WaAqxiwRZxcKH+P SYflhLnbWkiMU9qOiHu c7qbn9VhTOffS4OtCVV uTFkiIyd4WJKiMCB0bV O1wK9vSEBsTDhrz2E6p UR5T0WezmTije0xq4ga VFJvFOphN75foXQmy1C 5OJQaoUB9ALNfkWniAy GavQ80Psh+PGNvbGdyb 8MkSmmmy2cdj6msrGt5 IjMwJSIgdmFsaWduPSJ 9i7PrXc99X70aVCtnRX RoPSIxNSUiIHZhbGlnb d9ugZ7qUs1+PGNvbCB3 jPR1iV3fPFVtSbR7NGh nZ370LkAnvBZjPphbn4 qur8wmiEd9RzAzIDHkl hRouDyoRLE0v7PdNw17 C74jDZwqMJFgEOPdMSS gXKNncYyqmu9kqP3yHm 8+KG8dg7iikx72dR36e HI+KMIbBTT3dHftBPcy KWFcfE9pIXocMyP9SKN kOdZwzM26kYFcICzxZu 0koDtjyKvaVP4oSYLuj imax136QxUkb1vvUGCy hQBrOQebRJH6J14pp2J 3DJZlUDNqVJA3rPT1uW 1hbGlnbjogbGVmdDsgd uZygEngTLhvZEskG514 IHRvcDsnPlBhdGllbnQ qSgEfCBb7N1NsMck2QV GkmUjjZB9fxYZuRVgrG o9foTomfNyaDQ0xLHLy tutpm955UbMqd9awUBD qmXGbETqvIKY8Q00uw8 G0DMRnTDHaNZP2vGZ5n X0fiIfrzudllQWuoKfe pjKkdLmxUExoIWttA41 6IHRvcDsnPkJpcnRoIE TgdDP9KS19VP03pCBvp 6W7yWX8O3WzSCOckdck vwsecLJ0GMZiBREzsH8 7Nx0hdWeoRz8pMOOdQO L7FAYheKGwT6YsjE9bI cPrTVSoKAHmL4MbbPVa FEcoI260BLbkNxD9RTI uliJfR7HpTTRloBkpOk W6n8S2Qr6KO5L6IW58I T85gNMwy7A5qIC9M8Vd EOEdgtxwodusqRQ7TNK iOFBuwI43Ql7fhCbeOw 8hJDGlFNC8ALUggYZrT 7UjtR7gReHkYCZcQWIa T8KirFBdTUuwJ216MKz qAsB0QWIxvpYqT3WhAN ZefKkbGeD9x8V1Gt7LQ Gb6LU91XQ51kASal5X5 oTD3X5NmDPDgfaewdux vjNS2FEEkSBPynH07Dz 3ykMyxZq9zUTAbUJO3X UKbeZWvE6DygT4mYwEv RWQiTBAfF4UzpENfOAd hN715SPyhOzQ2OPBimq FqK8TyLZJqmCywZzW5f 9H0Sa1NCFEjNV28CDN5 yTN4XJ82UY24E8KiOxx vdGFibGU+PHRhYmxlIH dpZHRoPScxMDAlJyBzd YqcXD7dGy3cUZCgKTGe uWefsOEeDwMdi6ctNTV yNFxjHQ0vlPeyH3XolY M1PFTvf4x7Jy02I40bW 3JvdXA+NNZxpDW1mYR6 rN4uOcFlGrU3NSdsU75 3ImOmcGRgQffdb9mwi8 bciUk7CoR4RSBtgcRqx AzkXMP7a9BcSx47Z30q IHdpZHRoPSIxNSUiIHZ gtGkkri1sbA2cUx1+PG OesDW9vID5dK6uHaOwD tN6OCoyQ092FdIxpZXd Nyhem2nsm2qrxGo3ApH wTUDzukKtdZhiIKI8b5 GyDp16E1BrpNbcj6OtP md6gm29rMUja1D0vAQ1 V0ViZIOkzfrcsGXctMj oPG7aTFQfygoxOEYtjB 9bIZAwA1x9PkBbTzJ0C MajI6ApqmK9JLQqkKJe LXjbPXF4C12hh3V3JPQ wXCRrYNQ5zEK4oO3fhU lnbjogbGVmdDsgdmVyd JejHAtuLYhdO145BGKm xPvdJIPwsJ5hEDVssFM szDckXR5vCUExnmlaBx UFI9OGRKNISueGPARTU GQ0S1EpDgk5JACyhFdy YA8ejUCiPVtmSw7nxWk hxRxmBT8yHQFzjdkaUG SrbZ4gWBApwDImdLqwL R6pRRDhqdmoc108BmXs HDR0OZEbmPZkL1PtiZ6 jHwOmWDJoRSHhN2KhnR WzVPztS344XIsbSuU6S VYzhzSwA9IvRWFgzLgl VuH2m0V3Ya6xRd1oSU4 nUOm1NG73SU54fDDbp1 S1eIQ7P0MhYMErsothn auheFZ5DOQiJIJzjV31 nTLeSFeuQl7hs7M1t90 2FHJmNLMktC02Hg5brO ceCURzaOLNkV3duclxx 6oxyicaNjHaABVlPEp8 QJs6EJPajVidIqFnSKX 7TyB1YVN7wCUdyN3vjR bfvrbinX6sZhw+MjUgW KUdziM8Q1DqFad5WXRw sXveSP8kfMOlGMbnSv6 cbQnujMlqTL3dHPEtps iwWEJmiX3cSROkeJEiy NyeSB2nMGMctprby923 IuUbPFS6FWFydEJdQ9F muO6rWaOlBZNkXHHnJ5 BcqABjIYcpT467KDvsH kK3EJBgmsTvR0AwDAZx eAjhByE7f3L4Jz4XOAt NWK78RR62vHHba2A1oA Z8C4JgLQShrztfpilfq MO3FCGoNSViuK43oDDl PYllXo0po4Q9b824QUI aUFTxeW02Jy8zlWnqVU RhaTLLuT0regpqh7vrd cuxIqPoWVXaVYe8BMu3 CGZkzLomVqJeQCV2VcD 2AYL1pXTtkU5npYmspn gqyU8vTyl+Z4T0D4VhN jwvdHI+FO85ESVeAK00 pZTicKFlr2ggiPi4FuS yZLUhUHA7bYhfYZmvj9 JaHESjE50qrNUhw3W1K GNvbGxhcHNlOyBlbXB0 vQ5xVHialmtzx5nxqgn aCfhpn3acdb60eP81T8 9sIHdpZHRoPSIzMCUiI TFivVtnpv1ioB5aZh6+ MSYlvXH3qXG4jE2yUwQ lKkS6WOwqT785ZgYujC YvKpfbd6ypf4ysgDo1J jIwJSIgdmFsaWduPSJ0 y7RvKr09U31xPPoyXKN oPSIyMCUiIHZhbGlnbj 8piU1fCo8+FJ3mg8zik a76qH89yYQ+PHRkIHN0 uXvjULuiQBUuuL8aUBl mPjE2PEJbXzVryE05tN RnXUfnZj7sfBszrHgnU Z7oVHWgfbkam903AcLs v3dgJMUowLFtAMmrJPY 7O17no8S1GZKtSINsPY N8nJA4aN8bzRyyazksb GVmdDsgdmVydGljYWwt QJuuF531VDJdlAsnMeS giAEiX9wzoeXEFZ5yTa wvdGQ+RQAyIYL8kRaaN RlgTZNftL8fQRBpH6q6 XvMtGuM6BKoeP7DsrxJ 6IGJvbGQgMTBwdCBUaW 0qjsalj4ercqscXeUhF QWmSNz2DJb3AOUhzMiz BqApDAT0WtS6YXE6gTB bcE0fnYwjkkbsfT1eFd c+RklOOjwvdGQ+PHRkI TN6eIalFJdjNFUusZ4x BSIgE8v7EpRhQnO2QVh eK5RyizK2HHGqxRBkND KsdIUTrI7svarar6hrj ovvKwZdGFNmISh9GAg3 UNCqeGquScVmKNH0NaH 8YIQ9hIIohS8llVevhg zljI4zFha+TVJOOjwvd GQ+DDRwZNY1vZxxELke ZHWexL6vXQAdT7n1JiA rIkG9TQfmK6PojgZ0GX DkgJXwVRNenEPMiL3ko hpen0hfjmbkDtUcUWPg AFm8FEe6ESRmoVwsFtY oBSI6AaE9HAY7mBRdgX 7huDpttecfpX7vTej+U DN2JEB5FR37TL62G1Ha PjwvdGFibGU+PHRhYmx lIHdpZHRoPScxMDAlJy FyhPquOL7wYn5zXIGfA CBwvDfthKWeVfFjn0uf YXB (more content not included)... Normal [facility] XR Ankle Complete Righton XR Ankle Complete [...] Elias Gunter MD 06/25/21 1:50 pm Technologist: [facility] XR Foot 2 Views Righton 06-09 [...] Elias Gunter MD 06/25/21 1:50 pm Technologist: [facility] Consent Formson 04-03-2021 Consent Forms [id number] [email or web address] [facility] Coding Summaryon 03-27-[address] [facility] WjxszquyRVe1rCr+PGh lYWQ+IJ8DWVAlY05ygL VjvT3MG1yUCX9YSHBOL ZQBVS0OYB1yvFE2PBav Q1OznuUc HoooaNKoDA89ICd6UHH 4gKdlYCokxU7toZMtU1 v1XbBcVW77hN41VBfwV SDbMwU1GjVkkaabwRYo W6sjVlIsoAVwYen+PHR hYmxlIHdpZHRoPScxMD PwLjUvbXeyII3uSo5zB GVyLWNvbGxhcHNlOiBj n5bjEQZxKNdiBK4amZk bC0AigFC5MFCng2o5Xw 48dHI+JIBiICQ0vUvgB Zqjy834HyZzv8diMOW6 cZVgEKfeIMH3T82qa8B 2YGQgYQPmPJJ1aBY4fF 3mzPtcxlotQ4ExrTKbU dD9WWS7oLNwwJ0ljIsr oaywlL4bFuq+S26SXK9 PFLUUSL7MCpb4P6KxPu wvdHI+GT59FOFrOD03y DCvfNPqa2wtsWr9HgTd XAYzVPG4mRsnDCygi5I oXCZpG83tqICzi9Q0YO OnrKwljRPiQsTdsIL7r C3vAGxbhttns2okwoij Wfteh8jrej71uV77V96 eXNraIYEbIKL6UXMvDM PztZqocm9llT5rIe4+I Bdnh4nep4cdjRv5HiAh FJZkzxPcfMwfUHT3s8I xOl33L8NigLugx1ByRy w2sn32dNXth9C1tUD3Y RzxTFCdxX1jLOnpXeZ9 EEJxJnRyqL86lQXaCQo vRf4kyViawMaqHO8iNV WockxyNQRriO7cLIFnj XWslMhmLK3qLTQulrwh o436GoRuRPU6BNDdjKI gQ9TozO2fOrZoBOCkXS KlI4MsgBQhPQxuJ996F KcePjX4GAHfhrYmS4Sh UEMvjYdvNiL3h2F0To7 Ob0WrfqbaIRG6KKtiSU GmRdQ7YsCuLqH2A0GaL zr6JOQqdZydJE4fQ1Aa EQCkfodwhterpLR2NJZ fZYUzgP46nVCoZDazZf 5xa2C6f107NHRkGTKlk U72Ft2hlEouFMPnsUXN dR1jsbuta0dxnmhjGoY uDOEjNRr1JQm7MKXueV hgWuJzKKE7PlK3HBB3o XZszS7gzJyawnqofX4y Oyc+W57txW3iCAP6GVE 0wejtIYQudvCpYF78GI 29W2CuQuhyrFXhjUI+P GNwnjItiNfsLF8eReDi p4zno2YgPPzbY1JwRAN fINecThg2BABkKFV7eB Z9cE2bCAXqQBcyi4D5j ZZ3R9XemxFall4qh6sp WZFbRBavT72vzBHtj6X 4BJXnuUD9LGCcqDfeDa ZlmA26Zlr+PGNvbGdyb 9CoNzyfz4sjl8lksUc0 IjMwJSIgdmFsaWduPSJ 9b3DvKs89H49kLUodWA RoPSIxNSUiIHZhbGlnb v1smE4xQi5+PGNvbCB3 aGI7vA9jGCMbZtD4ARq vD696XxUnoWDzQkwuu2 lxl8qfzCo0AnTqPFMdk kWjbChpDII7z2WtXh21 M70eFUvuYJCdPDBfVLT cWMHrqSfqdn3zhA1iUp 8+RT9iv7drlu42rI19p HI+BGTvSPX6eNdpEThc SIFivR6iRDecCjT0BQI cJaLvnJ56gOOeRVnfUi 9dhSjwsNhrLY6uHYHtk fnms774ApArt7tiANGh nREqKXphCDF2E25uz7I 6ANSyMEXvKWH1nUI0vZ 1hbGlnbjogbGVmdDsgd dGtnPnyLBduGHovR926 IHRvcDsnPlBhdGllbnQ uVlWsGVq1Z7SiBdm0LX FddZseNU0rsDReRNznH p7lrRbczHbhLH3qVYVs cznhm366GiTsn0tcZIG pvYNbXKylPSE8L05rf3 R6HIMqFSHyMDC6kVK6x P6bmSwuvvayqDYoeToj tdWcnVsvBPfnXEfrT63 6IHRvcDsnPkJpcnRoIE CocJD7DF94HJ37qJDbv 1L3vZK2X3VcNSCrzjis mtjmqYU2GCRpYWMfxP5 7Hz6cmQnhPt9hFMSpJH Y4VSZlnOTgP0IjfD0bS jTbIZQaDDHxW6QgaCEm MPmtR659BXojBkR0NCK hqrWaB8NpAJUtfMtmTy N9a2A8Vy3XS1P0PL61U Y25fCTjw8J4eWH8W0Do LXSfhdedjduftED5HGJ aTQAjfU03Fg0pgGgmSo 4cMABhZVQ8TGMbhCJhB 5HehE0vBzKxRWElBUQq N2XjyWBhCWbkF838IPl pMhE3HBGpfzQzP7QsVU YkhOgzZjC6i8G8Nw6UT Uc9YR72VG61nWAql5G6 fXS2Q2LyEDAdesizccn gcTH3SSAaCBQxcH64Ai 9xmPqvUc6pTCAzZAP9L HDhmDXtD4WtmX7zOqGg KLXmSQYcC7HxaLIsGDj cT704QIwfQjX7EIVpta CrA4EgHYGvxDxwNyK0m 2P7Lh2FNITnTC89FFW1 aGR8LF92XU28L8KdJsy vdGFibGU+PHRhYmxlIH dpZHRoPScxMDAlJyBzd KkoHJ0vCd4eAWApEXQl nOtupDYmZbBge8yuAZZ zELliHP7ooIgoV0YvcR J4RUVrv1a3Ro06L88dH 3JvdXA+OKBikNQ4wLB1 zK9rNyIoCjS0UUlcY65 2WtXtqDRtZccjx2wja6 lxxOg4XjH3RKAcimRea PehZQL0t0ZqUk59R41f IHdpZHRoPSIxNSUiIHZ reLjksc1wjR4mQo3+PG WddBG6oEA6lH1oRyHqI zP3POhvR763MnApgCGg Jlccs4lbo3tloEw7ZbH xHNBkprVfqRdxCFP5k5 KdLs51Y0WxyVhud1UuU uv3gp55jLGmj3W4pNQ6 H1YqMVWgrkjlsYZmvSq dJH3zGWTzxbssJFZliV 2nMMApT1t4JnRjDoR4Z LryX2JvqtL4HXGbqMQi TPbsKOF2W19ps6C8CWL lGSTlKXI3pHI0iI5prR lnbjogbGVmdDsgdmVyd BgsLPksMWzcP567UHLk iZfwATIvfO3rPXJinYE wbNrcZF2dZMFsphduUt WSM6CNXETHCvrQTUTCY PC9C9CbGnm8BEUgaKgf PP4eyYRbVChpVe7ctDw mfZxvRW2oNNEntozqSV QhzB7cWJVxzQEuzVtyS Y4wDFLeequwo069TbRi BKQ2WFJkyCFuG0FcrY0 sPlCjODIkRLTaY2VqqD VqOXjsU267HOeyIrB9H JHrrnIyT3EnCWCacZlm HoN7y3G1Ck5oHg2pSG8 dTOc4PD67ZJ78iTKwi9 M9zYS8F5PsZDBilxjad xpjrFR9XGZrUSCtyY26 fMUlGPjvSl8ge7I3k96 3UQFoUELqrS38Cs9jzA fjVAXttCTHuC0zlhbna 0tmpopfAdTsMPPsRFp9 AFa3FVUuxSziUqXhUBW 7ZkF7EXD1nPKwsY3xjE bhygsssS1hEor+MjUgW WToorI1Q1LwMin2WHJu nNchJL8hsEPsCAdeOa9 xsTptmCouKR3oRHUcho xiCVTujU6tQRQweCHul ZpvUM4tYZCzeygdf576 HrLbKGP1MEYamXWsU7Q kqU0fUoOtCZNbNFCmS5 DezJZbVRjtW240ZIqhC vU5PHBilnFxC8KcUUAj vQedWvL4w5F7Vi5DJMb TYA58GK23xHAsf6Z8jR Y9F3QuDJFqgasuozslj YT5BDRlAIGgdF12aOEv HIdlTs1wy2R8k384PRC aSFZrhA94Kk5xqLpiFG TmkCYSgS5mtbugq9znz atdWrIgIJBsKJp7TDx0 EXLcwGdnDiUoYIV7ElG 9RYZ6nGUrlC4lqDyeyk ydqI4aVlh+O9H8N4SdG jwvdHI+QC87NPIoOF56 xVEcqMNsx5qepQg1MuH bUGLnFOQ0jRvvWXoyn6 KdGMIrI14fwRUzu8X8Q GNvbGxhcHNlOyBlbXB0 kD5tFKxprjcuo3bigio yJdjgz3lqtk30zL54O3 9sIHdpZHRoPSIzMCUiI RUnaNieov9rkG9rAn8+ QBKlfXI9dGW2iE0xDoG wCpE4PKtxK003JzBllC LdLpyes5ghs1xasKe3L jIwJSIgdmFsaWduPSJ0 n0RpCo24K74lFUbqUGJ oPSIyMCUiIHZhbGlnbj 5mxQ3oNf8+PQ3oz7hoc c09gV76fBQ+PHRkIHN0 oVmkVBraSTOafN9wGYv kCjG3UFGtFlJgdR46vC LyLYjtRv5qhBwdnIczS L7sVCGyvttuc919XdCv j6raCEBrlFDaLPttPGN 9E94rv2E1UTVfHTHyYY H9mIO3eX9idPzcdyvdi GVmdDsgdmVydGljYWwt RIesQ697GLLryJgnFlE gdJZrY7csblDNNE3aWv wvdGQ+PTQoHYD1rKyzF BjyPOQmoZ5pXHQfJ2o9 UqXmMrE9GEneH1IaudH 6IGJvbGQgMTBwdCBUaW 7wicicl6cynxadKoVeW GPdSLy4WBv8EHSdkGmg ZqXjRPM9ZrD0YYG2fVJ jsR5ikVeolotyqO3yAy c+RklOOjwvdGQ+PHRkI SL4qZeiONvkOZVomE6h UFIsA5f9NmHzTrE4RFd cP7VzzkP0KKTtbXJuSB WzqAKPiD3adkvin2pca fqiRlDyOLFqKRd2PFz7 CEKqnIxfLnJyDAU3FxC 4XIU8zBQnpK8pgNrnty skwV0gJsm+TVJOOjwvd GQ+XEKjQLN8rJmhNBte RNIhrI0yUBAeY2u1BgZ iAvL2AVbkQ8MddsD3SC EvhVNmWPUxfJWDaQ0tt iaql0btjfciObNlPWDz KYw9KTm7GDDvbHtcIuV cQFG9TdP1FRL6vFKbgJ 4umYfccxnbaG0sDxt+U UN2MLC6RR43NO07W0Wd PjwvdGFibGU+PHRhYmx lIHdpZHRoPScxMDAlJy YkbWgpDA8kBg4sSQQdP ZQxtSkbcUKwRgJyk1pt YXB (more content not included)... [facility] Coding Summary HTMLBase 64 JiroscbpYLi2mGg+PGh lYWQ+PN8VTFLgD40omN VctN1NU7kQMJ4XFSVIM GYQFT5CIJ0kdUH4SKbi R1ToslXn RlqzoCCaXJ22OXm7IZV 1bMxmRKwmbZ5bnJKiP9 r0KqLxXK36pR60YQqhJ DJyPvB0ByRtfhibvLFk Y9stLlMxhTTxHxd+PHR hYmxlIHdpZHRoPScxMD UbWhGfaSpvMI5sFf9gO GVyLWNvbGxhcHNlOiBj g4raAIAxKFzbJS6rzMp xW7DseZV7VYQsq7q2Fy 48dHI+JRQrMPA5dQhkI Hzjx191BiPbf6xgJFV8 zUMrTUjyQTN8I88mo6J 2QHNpTOWgXXN5eMP1kS 2cqOhgootkA0TwpDWjM hF0QKL7dEGtnN0pnVnc cbmlfB5yYzr+G21FVR3 PAZSMXT0LQwm7C3SiGb wvdHI+JL54PTQkCP13r ACalIEuo5bknZk8ZuRj LDSfPOD2nYpkQUkjv5L xJXEjB27vaPByl8P3RO VqmHbtjLNgMxStwUK1p Y2gLGtcyawtm9dsjeto Sttmg1npzu07aE41R97 nNBljRALhIML4CZDrCY IbtXvmpb1erP7zBk7+I Wtpz5mao1ltpJw5KgVn SAMeohActXnjQRF0m3B pBj12B0GeeZyml5EfXx d5nq01sOKql4M6hMP5J YzwKJCdbY9xKPzrOvT1 BNFyFqDvyK76lMMbMJk pFn1yrEjtwBtqJA5cET WwynolWATktE4sEYOxv KGqrPbbGP0fRFIwksvp a052JeBkAUI3DWRkyCN hH4UzoU6hYiNlTOBfHE ZbN1VdqUPgXYlcJ787P GyfZkP5LZPbtsHvI6Xq LZBvgPymJjE0p0K4Rf2 Iz1JisqhbIPR2FLvgQJ KrSdZ2BsOxZhQ7Z4KaL en5PAMohBgaRU2vV3Bb UXLqrcavnmkysMS1SFT gPUXogS31iTVrNKavHs 7es8I3u747XTIlRBWmd U90Zt7vmDjfQWOzaUHN rJ1egvthn6zkqlpuBuS bDTIuVUh6YOx3EXMxiQ fiYaViCNP6QjL0XID0n CBqwA1pcUejphjsjW9p Oyc+G68jeS5sWVP8XOB 8xxxuAULgpfTrRA60YW 32L0KjIhlabOWquJA+P ZHhyuCzbJtjNA1gMlEr d4gfm2JyQWecW8ZnKYG jPPhbJfy3KLXhUJE0yT G6iA3kFDJgQQrye2J1c XV1S9RgemHguh5em0yt AWDwBQkyA06zsWEjh3X 0KZYmbVU0HEVyvIqcHj BhsP97Ivw+PGNvbGdyb 2QrYimjt9sso3qhtXu5 IjMwJSIgdmFsaWduPSJ 4n3OcFf04V81kMShjFN RoPSIxNSUiIHZhbGlnb h0wwK2wCh7+PGNvbCB3 mGK0vF0oNMNiAkC3ALf kZ573BbKliWYzAghpn9 msg2unoFn0VzKpUZBwp kLgqOizSLC2o5SdJt46 R14xLZpgLFQeZKYdLYG gCYZeoVwgxb7zdS3pIe 8+HA0wk0vnst73cZ22h HI+AYMaUFJ2lBtrHIri JIOdmI7qNTmxAaK4XAV iWjRcqB57xBJdVJqjFg 1eeTsahDthEP2vSQAky mvcc555QyGha6poFHBy sFKqKYjbOBU5G67fl4M 8UUAoWMOsSJR2uOF7gR 1hbGlnbjogbGVmdDsgd cVosSbsOBqdXDynK784 IHRvcDsnPlBhdGllbnQ fApInZMj2H7DjDiu1IN YmhGjxHG4byHAwRPcsU i4rrVhzqGfxVE1vUIPp uudav570LuFds8qgHEQ yhBGwHHvtHKE9Z66ec7 C5IONhJYDlGMG9xQM0y J2uyNdiqtdauQFjqLgp ntNzcAcyFOjmIFmrW41 6IHRvcDsnPkJpcnRoIE WsnKN0OH16RM89kYJyf 9E7qQJ8U4RoNKWjvibs mafokJN3QEZyPFKfeT1 0Rh9itCfwZj4lHUBkYD K3RLUfoSLjG2RexH4xE hPcAHOfXABiY6BigOAq GYvlN983DQkrZuN3KVT asdCeW5RmZPOkvEhfRp F8z7J3Jp4VR3I8MP42J G76hQJwf6C0pXP9Y0Be FLNvgnnmidfwpYQ7FFE aDGQmeU58Mp2wxGitWs 8pVEAsVDU9TXBhqYPjW 2QhfK9pPyPsJLMkDDNs X5RkxRFvQPnbP667UKn mDjC5GGOmtrVmD3HpEV UuxMrlBlS7z6P7Lt8BQ Ld2UF93SC61tOQcc3B9 tAP2I5HgPZUbeyoytke paQW8KXTpRLGtdA01Mp 6dwBpeKb2tCUXySWD9Z FTpfLMxK7RdkN2sJdVj PAShPNMsX8YhcNOqLSu mZ598JUrmCqE6JGUidz MjG4NbQPMiqOjeFcZ1z 8S6An2LNCYcYH95AZI8 tUW1AK44MC57C4MqGzk vdGFibGU+PHRhYmxlIH dpZHRoPScxMDAlJyBzd WpaTX4rWv5tXHCcUKIc jExfbZFzGvPre5liESP jLDciJI2beLsxQ2VwuU D7RWYwl9l1On29J83lU 3JvdXA+QBCymZL5wEF5 oN7gAiFuZvK4XLrwP42 7MkLpsAEoJgvjv0iru4 kxrYi7WxJ9YLPxcdGew AntAVM5i4JvZk53O53b IHdpZHRoPSIxNSUiIHZ qoRlexq3nuL8sIv7+PG XcbGH9jNV9yG9kHlCiZ aF0LBcbF584ObAxgPOh Ewosc7pxl0tdsWx2NlO bLWAnylLsyJkuGYH8g5 YwGp42L0JpkFgrn6DuY xq1is74oJFoy2B7bBC4 I1WlDQQaxoddnTMafNn zUZ9hQHLfdetwBUAbzI 3pVOEfV3r0LhReWfS8X LfiW3OgsjZ9VKYejDRk IIimKIW6C35kd3V9XBL gUHPwSLB7fFK1nF1ztA lnbjogbGVmdDsgdmVyd RhbZIieBEruJ852IKSb iMmjSZIncK8nXCUwfAZ aqWzvOM3uDQDbnunnBx TKT2VEXRCXEizXWOVII LA8H0JkXuj7NLYsbLam HQ7wmZPsYKubKf9uqBj tuZdiRG9lFFAmamdzKU OuvB5sTTCmrUUxkHrwL X5mYVMsytqhj988SkYl ZGO0VLJgvWRgE5VunR0 gKsRfKQTbKAEdC5VrxV OwVPmlU668BFcpCkZ5N GTjqwDkT2DrPHOjjVtf EnJ7h9V7Xi3yZx2bXA4 yBAi0BA93MC74cMIoz3 U3tSQ9I6NeDYOjzxsdg aowjXY8SPMkGCXkgW19 vAFcWUgtZb2ah2G7e31 0DSDcNATpqP34Km1odX lfICYuvTRQdA0tyugbp 2qczfroVhKaCQSkLHr6 OAf3HBUhlGgcViRuQRY 2NrD2VKT3lJChjR3qjW yevcnitY8rNxn+MjUgW TJujdE0F3JpXuh8DVAs hMccYB0xoUZeXAynYv2 crBccfMolEU8qMWQjqa vjJKNybJ2oCFRmhKXdl LjlGZ5wXROcbmefh101 HgRcKLS5CZZzoIDjO4W nyU3pOfJsMUJyFYPhE3 EaaCVqIPbbO957YPzkH dU2YCSlbfDuD9NaHNBd fSslAnX8o1N1Ld4TGOi QWX01FK10eNVyq8W8nZ I6B3JrSTGvfzezkbqgc DQ9CNQnFHHsaZ83aLLq FQivSz6jk7D2e142PJK pGEWjkW73Sl7hmJqaPS ZhkUIBwA6eelbds4uyy zzaScJoCLNcWOa1YQf5 LENvjNttMhLoLJZ1MzE 8BQI2lOWpqE0fmSzsuw ihuM0hTen+T8R1O8IdO jwvdHI+JX84QZZhUL90 oKLelDJsb2ucrMf9RhC sJHHmNQY0cWkmASnck0 QvQGNqZ53vvOQea7N6M GNvbGxhcHNlOyBlbXB0 bX5rBDnxjqbgc9uyqqt xMoqdg8pamp28dN31W5 9sIHdpZHRoPSIzMCUiI LNwrEppos4qqD0uNh9+ GZOpvWB0oLZ6pU8bXvQ jFzX4TMhvC681KlGhjK SuQtqsq9yib0powQr4B jIwJSIgdmFsaWduPSJ0 s9IrPa91U21zCAmmTSL oPSIyMCUiIHZhbGlnbj 4iyL7wBf8+JI0al9dqk n73kO65bVG+PHRkIHN0 gQzqQEjeACWydD4bHGu dBgB0FKJmYtIgzM87xM YrZUwcEt2qiEborKjqS X7mIQXnhpuyu661VrLo i3frCEVyvAQmPKjlQSM 6K56aj7N9IHFgABVkIS U3oFA8cK3ceRuyksyvo GVmdDsgdmVydGljYWwt HJurC658ALMrqRwgKaE ceXTqG2xmyhZMVH4oRv wvdGQ+LJMfJTN2sWufP DofKHShyT5aAIByV8g1 FwZgYoL9AArgE6PmdqB 6IGJvbGQgMTBwdCBUaW 0tuzeok3otwykmGhZuF ZTcHIc0RVw9PVKhfJvs NmQdFKR6CfG2DFL5yLJ nrJ7zlLmlydyatM1rPs c+RklOOjwvdGQ+PHRkI LV2oTmaONpfKLRfdK5c CHArN2p0WsTkUrP3KOc lV1PddoF2KKVhdTTnNW QxzXYPpW0tanbnf6krd jmiTyAhZJLrNLy3RJm0 KZNgqZtnOqKuYNC2FsO 5IYK0tLGetJ4mgLmrkh ehsK3uTvi+TVJOOjwvd GQ+GLJzRDT1zAcxYXmu ZMGyqI8cBHJzZ5x8NaE aOtR2NHseH1TuxiW4TI CwsSQsTQBdtFSRyD2nt ejbp8hifmiyUdOfQSYc ODt9BAx2WKOruEihXrA qIWB9PcF3GSH9aRVgrA 5xrGxczworiW4sOjr+U BQ0DIR5YY14HP99Q2Jc PjwvdGFibGU+PHRhYmx lIHdpZHRoPScxMDAlJy IrgWfsTQ3vRo7oCPMsP QCcqAnjmLRbRkJck1db YXB (more content not included)... Normal [facility] .Auto Diff 03-24-2021 Auto Converse % 6 % Normal 1-12 [facility] Comment on above: Performed By: #### 7 [id number], [id number], [id number], [id number] #### [facility] (DEFAULT) [address] [place] [address] 92868 Baso Abs# 0.0 x10 Normal 0.0-0.2 [facility] Comment on above: Performed By: #### 7 [id number], [id number], [id number], [id number] #### [facility] (DEFAULT) [address] [place] [address] Basophils/100 WBC (Bld) 0.2 % Normal 0.2-2.0 [facility] Comment on above: Performed By: #### 7 839965, [id number], [id number], [id number] #### [facility] (DEFAULT) [address] [place] [address] Eos Abs# 0.1 x10 Normal 0.0-0.4 [facility] Comment on above: Performed By: #### 7 690677, [id number], 0444908, [id number] #### [facility] (DEFAULT) [address] [place] [address] Eosinophils/100 WBC (Bld) 0.4 % Low 0.9-4.0 [facility] Comment on above: Performed By: #### 7 993943, [id number], 1134607, 27846888 #### [facility] (DEFAULT) [address] [place] [address] 60560 Lymph Abs# 0.8 x10 Low 1.3-2.9 [facility] Comment on above: Performed By: #### 7 043037, [id number], 2680963, 63906809 #### [facility] (DEFAULT) [address] [place] [address] 49783 Lymphocytes/100 WBC (Bld) 4 % Low 14-48 [facility] Comment on above: Performed By: #### 7 634581, [id number], 3263426, [id number] #### [facility] (DEFAULT) [address] [place] [address] Converse Abs# 1.0 x10 High 0.0-0.8 [facility] Comment on above: Performed By: #### 7 039469, [id number], 5942245, [id number] #### [facility] (DEFAULT) [address] [place] [address] Neut Abs# 15.6 x10 High 1.5-9.2 [facility] Comment on above: Performed By: #### 7 593442, [id number], 5732877, [id number] #### [facility] (DEFAULT) [address] [place] [address] Neutrophils/100 WBC (Bld) 90 % High 44-88 [facility] Comment on above: Performed By: #### 7 798196, [id number], 9675172, 31585933 #### [facility] (DEFAULT) [address] [place] [address] .QC SARS-CoV-2 (COVID-19)/Fl u/RSV (GeneXpert)on 03-24-2021 Internal Control Pass Normal [facility] Comment on above: Order Comment: Order ed by Discern.[[email or web address]] Performed By: #### 7 133786, [id number], 1551310, [id number] #### [facility] (DEFAULT) [address] [place] [address] CBC w/ Auto Diffon Erythrocyte distribution width (RBC) [Ratio] 13.1 % Normal 11.5-15.0 [facility] Comment on above: Performed By: #### 7 887937, [id number], 3898615, 91010231 #### [facility] (DEFAULT) [address] [place] [address] Hematocrit (Bld) [Volume fraction] 47.2 % Normal 34.8-51.9 [facility] Comment on above: Performed By: #### 7 162508, [id number], 9925957, 10180050 #### [facility] (DEFAULT) [address] [place] [address] Hemoglobin (Bld) [Mass/Vol] 16.2 g/dL Normal 11.8-17.7 [facility] Comment on above: Performed By: #### 7 043362, [id number], 2916050, 54298358 #### [facility] (DEFAULT) [address] [place] [address] 48711 Instr WBC 17.4 x10 Invalid Interpretation Code [facility] Comment on above: Performed By: #### 7 360407, [id number], 3695574, 42968165 #### [facility] (DEFAULT) [address] [place] [address] 56397 Man Diff? Auto Normal [facility] Comment on above: Performed By: #### 7 352489, [id number], 4406778, 95811330 #### [facility] (DEFAULT) [address] [place] [address] 52402 MCH (RBC) [Entitic mass] 28 pg Normal 24-34 [facility] Comment on above: Performed By: #### 7 165198, [id number], 8638542, 62577131 #### [facility] (DEFAULT) [address] [place] [address] 49669 MCHC (RBC) [Mass/Vol] 34 g/dL Normal 26-37 [facility] Comment on above: Performed By: #### 7 058038, [id number], 8059282, 63062177 #### [facility] (DEFAULT) [address] [place] [address] 46185 MCV (RBC) [Entitic vol] 81 fL Normal 81-100 [facility] Comment on above: Performed By: #### 7 961966, [id number], 9409932, 51646549 #### [facility] (DEFAULT) [address] [place] [address] 75963 Platelet 314 x10 Normal 138-427 [facility] Comment on above: Performed By: #### 7 367424, [id number], 1296958, 37067339 #### [facility] (DEFAULT) [address] [place] [address] 46785 Platelet mean volume (Bld) [Entitic vol] 9.1 fL Normal 6.3-10.2 [facility] Comment on above: Performed By: #### 7 694841, [id number], 3866421, 88660716 #### [facility] (DEFAULT) [address] [place] [address] 00066 RBC 5.81 x10 High 3.70-5.30 [facility] Comment on above: Performed By: #### 7 323923, [id number], 3409363, 27665288 #### [facility] (DEFAULT) [address] [place] [address] 06843 WBC 17.4 x10 High 3.5-10.5 [facility] Comment on above: Result Comment: Slid e Reviewed Performed By: #### 7 623238, [id number], 3883469, 33887858 #### [facility] (DEFAULT) [address] [place] [address]808[facility] Standardon 03-24-2021 eGFR Non AA >60 Invalid Interpretation Code [facility] Comment on above: Performed By: #### 7 037606, [id number], 8581283, 18003311 #### [facility] (DEFAULT) [address] [place] [address] eGFR AA >60 Invalid Interpretation Code [facility] Comment on above: Result Comment: [employer] trish Kidney disease could be indicated at eGFRs of less than 60 ml/min/1.73m2. Kidney Failure is indicated at less than 15 ml/min/1.73m2 Performed By: #### 7 191787, [id number], 6782103, 54377483 #### [facility] (DEFAULT) [address] [place] [address] 10511 Albumin [Mass/Vol] 4.6 g/dL Normal 3.5-5.0 [facility] Comment on above: Performed By: #### 7 727735, [id number], 0321879, 10351089 #### [facility] (DEFAULT) [address] [place] [address] 43639 Albumin/Globulin [Mass ratio] 1.3 {ratio} Low 1.4-2.6 [facility] Comment on above: Performed By: #### 7 108538, [id number], 0702854, 55800922 #### [facility] (DEFAULT) [address] [place] [address] 97861 Alk Phos 84 IU/L Normal 32-91 [facility] Comment on above: Performed By: #### 7 938120, [id number], 3514025, 96068708 #### [facility] (DEFAULT) [address] [place] [address] 63117 ALT [Catalytic activity/Vol] 42.0 U/L Normal 17.0-63.0 [facility] Comment on above: Performed By: #### 7 082636, [id number], 0779852, [id number] #### [facility] (DEFAULT) [address] [place] [address] 56909 Anion gap [Moles/Vol] 14.0 mmol/L Normal 5.0-19.0 [facility] Comment on above: Performed By: #### 7 400645, [id number], 1940181, 94236849 #### [facility] (DEFAULT) [address] [place] [address] AST [Catalytic activity/Vol] 32 U/L Normal 15-41 [facility] Comment on above: Performed By: #### 7 605763, [id number], 6399192, 15358977 #### [facility] (DEFAULT) [address] [place] [address] Bili Total 1.2 mg/dL Normal 0.3-1.2 [facility] Comment on above: Performed By: #### 7 621310, [id number], 9133690, 62536795 #### [facility] (DEFAULT) [address] [place] [address] 36201 Calcium [Mass/Vol] 9.3 mg/dL Normal 8.9-10.3 [facility] Comment on above: Performed By: #### 7 753917, [id number], 0087188, 10977090 #### [facility] (DEFAULT) [address] [place] [address] 29102 Chloride [Moles/Vol] 92 mmol/L Low 101-111 [facility] Comment on above: Performed By: #### 7 690366, [id number], 1647486, 46303765 #### [facility] (DEFAULT) [address] [place] [address] 19804 CO2 [Moles/Vol] 31 mmol/L Normal 21-32 [facility] Comment on above: Performed By: #### 7 219006, [id number], 4164551, 36516248 #### [facility] (DEFAULT) [address] [place] [address] 62125 Creatinine [Mass/Vol] 0.68 mg/dL Low 0.90-1.30 [facility] Comment on above: Performed By: #### 7 997642, [id number], 0437527, 46725961 #### [facility] (DEFAULT) [address] [place] [address] 61384 Globulin (S) [Mass/Vol] 3.5 g/dL Normal 1.5-4.3 [facility] Comment on above: Performed By: #### 7 275028, [id number], 9578461, 25755551 #### [facility] (DEFAULT) [address] [place] [address] 02363 Glucose [Mass/Vol] 106.0 mg/dL Normal 74.0-118.0 [facility] Comment on above: Performed By: #### 7 818697, [id number], 7307820, 57678872 #### [facility] (DEFAULT) [address] [place] [address] 43780 Osmolality 268 mOsm/L Invalid Interpretation Code [facility] Comment on above: Performed By: #### 7 643106, [id number], 3601790, 67965485 #### [facility] (DEFAULT) [address] [place] [address] 98486 Potassium [Moles/Vol] 3.0 mmol/L Low 3.6-5.1 [facility] Comment on above: Performed By: #### 7 245462, [id number], 0873154, 59212556 #### [facility] (DEFAULT) [address] [place] [address] 73485 Protein [Mass/Vol] 8.1 g/dL Normal 6.5-8.1 [facility] Comment on above: Performed By: #### 7 804762, [id number], 3034064, 07501376 #### [facility] (DEFAULT) [address] [place] [address] 41467 Sodium [Moles/Vol] 134.0 mmol/L Low 136.0-144.0 [facility] Comment on above: Performed By: #### 7 057381, [id number], 8657633, 26944626 #### [facility] (DEFAULT) [address] [place] [address] 72716 Urea nitrogen [Mass/Vol] 11 mg/dL Normal 8-26 [facility] Comment on above: Performed By: #### 7 599774, [id number], 6679947, 34661945 #### [facility] (DEFAULT) [address] [place] [address] 92411 Urea nitrogen/Creatinine [Mass ratio] 16.0 mg/mg Normal 4.6-16.2 [facility] Comment on above: Performed By: #### 7 255148, [id number], 4981321, 79057676 #### [facility] (DEFAULT) [address] [place] [address] 44156 Magnesiumon 03-24-2021 Magnesium [Mass/Vol] 1.07 mg/dL Low 1.80-2.50 [facility] Comment on above: Performed By: #### 7 900726, [id number], 4562982, 22590380 #### [facility] (DEFAULT) [address] [place] [address] 78617 BASIC METABOLIC PANELon -3 Calcium 10.4 mg/dL High 8.6-10.3 [facility] Comment on above: Performed By: #### 1 007, 98109 ####[facility] [facility] [address], [facility] Chloride 99 mmol/L Normal 98-107 [facility] Comment on above: Performed By: #### 1 69, 19646 ####[facility] [place] [address], [place] CO2 29 mmol/L Normal 21-31 [facility] Comment on above: Performed By: #### 1 69, 12673 ####[facility] [place] [address], [facility] Creatinine 0.82 mg/dL Normal 0.70-1.30 [facility] Comment on above: Performed By: #### 1 69, ####[facility] [place] [address], [facility] eGFR (black) mL/min/{1.73_m2} Normal >60 [facility] Comment on above: Performed By: #### 1 69, ####[place] [address] [place] [address], [facility] eGFR (non-black) mL/min/{1.73_m2} Normal >60 [facility] Comment on above: Performed By: #### 1 69, 42824 ####[facility] [facility] [place] [address], [facility] Glucose mass conc 84 mg/dL Normal 70-100 [facility] Comment on above: Performed By: #### 1 69, 00475 ####[place] [address] [facility] [address], [facility] Potassium molar conc 4.5 mmol/L Normal 3.5-5.1 [facility] Comment on above: Performed By: #### 1 69, 85680 ####[facility] [place] [address], [facility] Sodium 136 mmol/L Normal 136-145 [facility] Comment on above: Performed By: #### 1 69, 64659 ####[facility] [place] [address], [facility] Urea nitrogen 14 mg/dL Normal 7-25 [facility] Comment on above: Performed By: #### 1 69, 28731 ####[facility] MAGNESIUM BLOODon 06-07-2017 Magnesium 1.6 mg/dL Low 1.9-2.7 [facility] Comment on above: Performed By: #### 1 0070, 72645 ####[place] [address] Vital Signs Date Time Vital Sign Value Performing Clinician Liliami lity 06-16-2023 15:56-0500 Body height 172.7 cm Shaikh Kim CALL Work Phone: [facility] 06-16-2023 15:56-0500 Body mass index (BMI) [Ratio] 35.73 kg/m2 Shaikh Kim CALL Work Phone: [facility] 06-16-2023 15:56-0500 Body temperature 97.9 [degF] Shaikh Kim CALL Work Phone: [facility] 06-16-2023 15:56-0500 Body weight 106.59 kg Shaikh Kim CALL Work Phone: [facility] 06-16-2023 15:56-0500 Diastolic blood pressure 76 mm[Hg] Shaikh Kim CALL Work Phone: [facility] 06-16-2023 15:56-0500 Heart rate 72 /min Shaikh Kim CALL Work Phone: [facility] 06-16-2023 15:56-0500 SaO2% (BldA) [Mass fraction] 96 % Shaikh Kim CALL Work Phone: [facility] 06-16-2023 15:56-0500 Systolic blood pressure 110 mm[Hg] Shaikh Kim CALL Work Phone: [facility] 11-25-2022 15:40-0400 Body height 175.26 cm Marcelino Villegas Other [facility] Other 11-25-2022 15:40-0400 Body mass index (BMI) [Ratio] 34.23 kg/m2 Marcelino Andra Other [facility] Other 11-25-2022 15:40-0400 Body temperature 98 [degF] Marcelino Andra Other [facility] Other 11-25-2022 15:40-0400 Body weight 105.14 kg Marcelino Andra Other [facility] Other 11-25-2022 15:40-0400 Diastolic blood pressure 81 mm[Hg] Marcelino Andra Other [facility] Other 11-25-2022 15:40-0400 Respiratory rate 18 /min Marcelino Andra Other [facility] Other 11-25-2022 15:40-0400 SaO2% (BldA) [Mass fraction] 98 % Marcelino Andra Other [facility] Other 11-25-2022 15:40-0400 Systolic blood pressure 134 mm[Hg] Marcelino Andra Other [facility] Other 12-02-2021 09:05-0400 Diastolic blood pressure 88 mm[Hg] Provider AMAProvider Work Phone: [facility] Work Phone: 12-02-2021 09:05-0400 Systolic blood pressure 118 mm[Hg] Provider AMAProvider Work Phone: [facility] Work Phone: 12-02-2021 09:04-0400 Body height 177.8 cm Provider AMAProvider Work Phone: [phone] [address] Work Phone: 12-02-2021 09:04-0400 Body mass index (BMI) [Ratio] 31.14 kg/m2 Provider AMAProvider Work Phone: [phone])278-963461 [place] [address] Work Phone: 12-02-2021 09:04-0400 Body surface area Derived from formula 2.16 m2 Provider AMAProvider Work Phone: 0(162)[phone] [place] [address] Work Phone: 12-02-2021 09:04-0400 Body weight 98.43 kg Provider AMAProvider Work Phone: 7(439)[phone] [place] [address] Work Phone: 12-02-2021 09:04-0400 Diastolic blood pressure 86 mm[Hg] Provider AMAProvider Work Phone: 2(948)349-815961 [place] [address] Work Phone: 12-02-2021 09:04-0400 Heart rate 66 /min Provider AMAProvider Work Phone: [phone])264-198361 [place] [address] Work Phone: 12-02-2021 09:04-0400 Systolic blood pressure 122 mm[Hg] Provider AMAProvider Work Phone: 9(028)992-655161 [place] [address] Work Phone: 03-25-2021 12:20-0500 Body height 175.26 cm Marcelino Andra Other [facility] Other 03-25-2021 12:20-0500 Body mass index (BMI) [Ratio] 30.59 kg/m2 Marcelino Andra Other [facility] Other 03-25-2021 12:20-0500 Body temperature 99.1 [degF] Marcelino Andra Other [facility] Other 03-25-2021 12:20-0500 Body weight 93.99 kg Marcelino Andra Other [facility] Other 03-25-2021 12:20-0500 Diastolic blood pressure 82 mm[Hg] Marcelino Andra Other [facility] Other 03-25-2021 12:20-0500 Respiratory rate 18 /min Marcelino Andra Other [facility] Other 03-25-2021 12:20-0500 SaO2% (BldA) [Mass fraction] 96 % Marcelino Andra Other [facility] Other 03-25-2021 12:20-0500 Systolic blood pressure 125 mm[Hg] Marcelino Andra Other [facility] Other Encounters Encounter Date Encounter Type Care Provider Facility Start: 06-22-2023 Orders Only Shaikh Kim CALL Work Phone: [facility] Comment on above: Infraspinatus strain , right, subsequent encounter (Primary Dx) Start: 06-16-2023 End: 06-16-2023 ambulatory SHAIKH KIM Not Available Start: 06-16-2023 End: 06-16-2023 Office outpatient visit 25 minutes Shaikh Kim CALL Work Phone: [facility] Comment on above: Acute pain of right shoulder (Primary Dx) Start: 04-11-2023 End: 04-11-2023 ambulatory Imad Asaad Other [facility] Other Start: 04-11-2023 Encounter by vickey amaya Imad Asaad [facility] Start: 11-25-2022 End: 11-25-2022 ambulatory Marcelino Andra Other [facility] Other Start: 11-25-2022 Office outpatient visit 15 minutes Marcelino Andra [facility] Start: 11-25-2022 Telephone encounter Marcelino Andra [facility] Start: 08-27-2022 End: 08-27-2022 ambulatory Marcelino Andra Other [facility] Other Start: 08-27-2022 Telephone encounter Marcelino Andra [facility] Start: 06-23-2022 End: 06-24-2022 ambulatory BURKS Sawyer KIM Facility:[facility] Start: 01-27-2022 End: 01-28-2022 ambulatory NIDA CHUCK Facility:[facility] Start: 12-02-2021 Office outpatient ne w 45 minutes Provider AMAPrsalvatore Work Phone: [facility] Work Phone: Start: 11-16-2021 End: 11-17-2021 ambulatory MARCELINO ANDRA Facility: Start: 11-12-2021 End: 11-13-2021 ambulatory MARCELINO ANDRA Facility:[facility] Start: 11-11-2021 End: 11-12-2021 ambulatory MARECLINO ANDRA [facility] Other Start: 11-11-2021 Telephone encounter Marcelino Andra [facility] Start: 11-10-2021 End: 11-10-2021 ambulatory Marcelino Andra Other [facility] Other Start: 11-10-2021 Telephone encounter Marcelino Andra [facility] [place] Start: 11-08-2021 End: 11-09-2021 ambulatory NIDA CHUCK Facility:[facility] Start: 10-13-2021 End: 10-13-2021 ambulatory NIDA CHUCK Facility:[facility] Start: 10-13-2021 End: 10-13-2021 ambulatory Nida A Chuck Facility:[facility] Start: 09-23-2021 ambulatory MARCELINO ANDRA Facility:[facility] Start: 06-25-2021 End: 07-03-2021 ambulatory Nida A Chuck Facility:[facility] Start: 03-25-2021 End: 03-25-2021 ambulatory Marcelino Andra Other [facility] Other Start: 03-25-2021 Office outpatient visit 15 minutes Marcelino Rodriguezr [facility] Start: 03-24-2021 End: 04-07-2021 ambulatory Nida Woods [facility] [employer] Other Start: 03-24-2021 Telephone encounter Marcelino Villegas [facility] Start: 07-22-2017 End: 07-23-2017 Ambulatory MARBELLA MAVERICK Facility:[facility] Start: 06-07-2017 End: 06-08-2017 Ambulatory OSIJOEMI OSINOWO Facility:[facility] Procedures Date Procedure Procedure Detail Performing Clinician NEGATED: Highlighted row has not occurred! Total colonoscopy Provider AMAProvider Work Phone: Plan of Treatment Date Care Activity Detail Author Start: 06-27-2023 End: 06-27-2023 Patient encounter procedure 06/27/2023 9:45 AM EST Office Visit [facility] [address] [place] [address] Shaikh Alvarez MD [address] [place] [address] [facility] Start: 06-23-2023 End: 06-23-2023 ambulatory 06/23/2023 1:00 PM EST Evaluation [facility] [address] [facility] [address] [place] [address] Edmundo Reina, PT [address] [place] [address] [place] [address] [facility] Start: 06-16-2023 End: 06-16-2024 MR Shoulder - right WO contrast MR shoulder right wo IV contrast Imaging Routine Acute pain of right shoulder Expected: 06/16/2023, Expires: 06/16/2024 [facility] Work Phone: Comment on above: Expected: 06/16/2023 , Expires: 06/16/2024 Start: 01-07-2023 Influenza vaccination Influenza Vacc ine (#1) [facility] Start: 01-05-2022 STRESS NUC, Provider : FRANCISCO CUEVASI NUCLEAR 01,[id number], Status: Pen, Time: 12:00 PM STRESS NUC, Provider: FRANCISCO CUEVASI NUCLEAR 01,[id number], Status: Pen, Time: 12:00 PM [facility] Work Phone: Start: 01-05-2022 ECHO, Provider: FRANCISCO CUEVASI ULTRASOUND 01,[id number], Status: Pen, Time: 9:45 AM ECHO, Provider: FRANCISCO CUEVASI ULTRASOUND 01,[id number], Status: Pen, Time: 9:45 AM [facility] Work Phone: Immunizations Immunization Date Immunization Notes Care Provider Kayla macedo 10-04-2020 Pfizer-BioNTech COVID-19 Vacc 30 MCG/0.3ML Intramuscular Suspension Provider AMAProvider Work Phone: [facility] Work Phone: 09-07-2020 Pfizer-BioNTech COVID-19 Vacc 30 MCG/0.3ML Intramuscular Suspension Provider AMAPrCritique[employer]It Work Phone: [facility] Work Phone: 12-14-2000 diphtheria, tetanus toxoids and acellular pertussis vaccine, unspecified formulation Provider AMAProvider Work Phone: [facility] Work Phone: 12-14-2000 measles, mumps and rubella virus vaccine Provider AMAProvider Work Phone: [facility] Work Phone: 12-14-2000 poliovirus vaccine, inactivated Provider AMAProvider Work Phone: [facility] Work Phone: 02-06-1997 diphtheria, tetanus toxoids and acellular pertussis vaccine, unspecified formulation Provider AMAProvider Work Phone: [facility] Work Phone: 02-06-1997 haemophilus influenz ae type b vaccine, conjugate unspecified formulation Provider AMAProvider Work Phone: [phone] [place] [address] Work Phone: 02-06-1997 measles, mumps and rubella virus vaccine Provider AMAProvider Work Phone: [phone] [address] Work Phone: 10-08-1996 diphtheria, tetanus toxoids and acellular pertussis vaccine, unspecified formulation Provider AMAProvider Work Phone: [phone] [place] [address] Work Phone: 10-08-1996 haemophilus influenz ae type b vaccine, conjugate unspecified formulation Provider AMAProvider Work Phone: [phone] [place] [address] Work Phone: 10-08-1996 hepatitis B vaccine, pediatric or pediatric/adolescent dosage Provider AMAProvider Work Phone: [phone] [address] Work Phone: 10-08-1996 trivalent poliovirus vaccine, live, oral Provider AMAProvider Work Phone: [phone] [place] [address] Work Phone: 04-02-1996 DTP-Haemophilus influenzae type b conjugate vaccine Provider AMAProvider Work Phone: [phone] [place] [address] Work Phone: 04-02-1996 trivalent poliovirus vaccine, live, oral Provider AMAProvider Work Phone: [phone] [place] [address] Work Phone: 1995 DTP-Haemophilus influenzae type b conjugate vaccine Provider AMAProvider Work Phone: [phone] [address] Work Phone: 1995 hepatitis B vaccine, pediatric or pediatric/adolescent dosage Provider AMAProvider Work Phone: [phone] [place] [address] Work Phone: 1995 trivalent poliovirus vaccine, live, oral Provider AMAProvider Work Phone: [phone] [place] [address] Work Phone: 1995 hepatitis B vaccine, pediatric or pediatric/adolescent dosage Provider AMAProvider Work Phone: [facility] Work Phone: Payers Date Payer Category Payer Private Health Insurance [facility] [id number] 2023 Private Health Insurance [facility] [id number] 2023-Present [address] [place] [address] [id number] 2021 Unknown [id number] [id number] 1995 Unknown [id number] 2.16.840.1.491349.3.579. 2.718 1995 Unknown [id number] 2.16.840.1.232083.3.579. 2.718 1995 Unknown [id number] 2.16.840.1.202423.3.579. 2.718 1995 Unknown [id number] 2.16.840.1.251570.3.579. 2.718 1995 Unknown [id number] 2.16.840.1.625199.3.579. 2.59 1995 Unknown [id number] 2.16.840.1.431626.3.579. 2.593 1995 Unknown [id number] 2.16.840.1.735998.3.579. 2.593 1995 Unknown [id number] 2.16.840.1.463391.3.579. 2.593 1995 Unknown [id number] 2.16.840.1.690802.3.579. 2.593 1995 Unknown [id number] 2.16.840.1.033528.3.579. 2.593 1995 Unknown [id number] 2.16.840.1.866194.3.579. 2.59 1995 Unknown [id number] 2.16.840.1.189933.3.579. 2.593 1995 Unknown [id number] 2.16.840.1.733425.3.579. 2.1259 1959 Private Health Insurance [id number] Private Health Insurance [id number] Self-pay [id number] 1959 Unknown [id number] Private Health Insurance [facility] [id number] [id number] Unknown [id number] Unknown COMMERCIAL Social History Date Type Detail Facility Unknown if ever smoked [facility] Other Start: 06-16-2023 Sex Assigned At [facility] Other Start: 06-16-2023 No illicit drug use No illicit drug use [facility] Work Phone: Comment on above: 1 can of pop daily.; Start: 06-16-2023 Tobacco smoking status [facility] Never smoked tobacco [facility] Start: 06-16-2023 End: 06-20-2023 Alcohol intake Lifetime non-drinker (finding) [facility] Start: 1995 Sex Assigned At Not on file [facility] NEGATED: Highlighted rowStart: DANIELF History of tobacco use Passive smoker [facility] Clinical Notes 03-25-2021 to 06-16-2023 [...] weeks (around 06/30/2023). documented in this encounter [facility] 11-25-2022 Evaluation note Encounter Date Diagnosis Assessment [...] the Gitelman syndrome. Continue oral magnesium supplement. [facility] Other 04-21-2023 Evaluation note* Encounter Date Diagnosis Assessment Notes Treatment Notes Treatment Clinical Notes Aug, Hypomagnesemia (ICD-10 - E83.42) Aug, Hypokalemia (ICD-10 - E87.6) [facility] Other 07-06-2022 Evaluation note* Encounter Date Diagnosis Assessment Notes Treatment Notes Treatment Clinical Notes Nov, Leukocytosis (ICD-10 - D72.829) Nov, Hypomagnesemia (ICD-10 - E83.42) Nov, Hypokalemia (ICD-10 - E87.6) [facility] Other 07-04-2022 Chief complaint Narrative - Reported* [...] or ischemic defects and follow-up as needed [facility] Work Phone: [phone]) 423-595007-04-2022 Chief complaint Narrative - Reported* [place] [...] or ischemic defects and follow-up as needed [facility] Work Phone: [phone] 524-255911-17-2021 Evaluation note* Encounter Date Diagnosis Assessment Notes [...] weeks to make sure it is resolved. 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 Hospitalization History low potassium 2013 Hospitalization History low potassium 2018 Hospitalization History low potassium 2018 [facility] Other Reason for referral (narrative)* Consultation (Routine) - Pending Review Specialty Diagnoses / Procedures Referred By Sonny peters Referred To Contact Orthopaedic Surgery Diagnoses Infraspinatus strain, right, subsequent encounter Shaikh Alvarez MD [address] [place] [address] Rey Cruz MD [address] [place] [address] Referral ID Status Reason Start Date Expiration Date Visits Requested Visits Authorized [id number] Pending Review Specialty Services Required 06/22/2023 12/19/2023 1 1 [facility] Summary Purpose Family History Unknown Family Member [...] Specialty Diagnoses / Procedures Referred By Sonny peters Referred To Contact Diagnoses Acute pain of right shoulder Procedures MR shoulder right wo IV contrast Shaikh Alvarez MD [address] [place] [address] [facility] Scheduling [address] [place] [address] Phone: [phone] Referral ID Status Reason Start Date Expiration Date V isits Requested Visits Authorized [id number] Pending Review 06/16/2023 12/13/2023 1 1 Specialty Diagnoses / Procedures Referred By Sonny peters Referred To Contact Physical Therapy Diagnoses Acute pain of right shoulder Procedures LA OFFICE/OUTPATIENT NEW HIGH MDM 60 MINUTES Shaikh Alvarez MD [address] [place] [address] Edmundo Reina, PT [address] [address] Referral ID Status Reason Start Date Expiration Date Visits Requested Visits Authorized [id number] Pending Review Consult and Treat 06/16/2023 12/13/2023 1 1 Additional Source Comments (unrecognized sect ion and content) No Status Records FoundNo Status Records FoundNo Status Records FoundNo Status Records FoundNo Status Records Found INFORMATION SOURCE (unrecogn ized section and content) DATE CREATED AUTHOR 10/28/2017 [facility] DATE CREATED AUTHOR AUTHOR'S ORGANIZ ATION 12/05/2021 [facility] DATE CREATED AUTHOR AUTHOR'S ORGANIZ ATION 02/07/2022 [facility] DATE CREATED AUTHOR AUTHOR'S ORGANIZ ATION 06/28/2022 [facility] DATE CREATED AUTHOR AUTHOR'S ORGANIZ ATION 06/18/2023 [facility] dical Specialists EPIC REASON FOR VISIT (unrecogniz ed section and content) Reason Comments Shoulder Pain RIGHT Care Teams (unrecognized sec tion and content) Manager Production Relationship Specialty Start Date End Date Shaikh Alvarez MD [address] [place] [address] PCP - General Internal Medicine 06/16/23 Manager Production Relationship Specialty Start Date End Date Shaikh Alvarez MD [address] [place] [address] PCP - General Internal Medicine 06/16/23 FOR [...] BE BASED ON THE PRIMARY CLINICAL RECORDS. [facility] [employer] [facility]. provides no warranty or guarantee of the accuracy or completeness of information in this document."
--- OUTSIDE RECORDS SUMMARY | 2023-07-06 10:34 | XMS_ITS | CCD ---
Author Name Unknown Address [id number] [place] [address] Organization [facility] Care Team Providers Care House Coordinator Name Role Phone OSINOWO, OSIYEMI Unavailable Unavailable OSINOWO, OSIYEMI Unavailable Unavailable NADAUD, ESTUARDO Unavailable Unavailable NADAUD, ESTUARDO Unavailable Unavailable MAVERICK, MARBELLA Unavailable Unavailable MAVERICK, MARBELLA Unavailable Unavailable DAQUAN, GRICEL Unavailable Unavailable DAQUAN, GRICEL Unavailable Unavailable Andra, Marcelino Unavailable Unavailable Unavailable Chuck, Nida A Admitting Unavailable Chuck, Nida A Attending Unavailable Chuck ICEBOX WORKER-C, Nida A Primary Care Unavailable Chuck, Nida A Attending Unavailable Chuck ICEBOX WORKER-C, Nida A Primary Care Unavailable Chuck, Nida A Admitting Unavailable Chuck, Nida A Attending Unavailable Chuck ICEBOX WORKER-C, Nida A Primary Care Unavailable Chuck, Nida A Attending Unavailable Chuck, Nida A Admitting Unavailable Chuck ICEBOX WORKER-C, Nida A Primary Care Unavailable ANDRA, MARCELINO Admitting Unavailable ANDRA, MARCELINO Attending Unavailable CHUCK, NIDA Primary Care Unavailable ANDRA, MARCELINO Consulting Unavailable FAWWAD, BURKS H Admitting Unavailable FAWWAD, BURKS H Attending Unavailable FAWWAD, BURKS H Primary Care Unavailable FAWWAD, BURKS H Consulting Unavailable ANDRA, MARCELINO Admitting Unavailable ANDRA, MARCELINO Attending Unavailable CHUCK, NIDA Primary Care Unavailable ANDAR, MARCELINO Consulting Unavailable ANDRA, MARCELINO Admitting Unavailable ANDRA, MARCELINO Attending Unavailable CHUCK, NIDA Primary Care Unavailable ANDRA, MARCELINO Consulting Unavailable CHUCK, NIDA Admitting Unavailable CHUCK, NIDA Attending Unavailable CHUCK, NIDA Primary Care Unavailable CHUCK, NIDA Consulting Unavailable CHUCK, NIDA Primary Care Unavailable MARCELINO, DR ESTUARDO Marquez Admitting Unavailable MARCELINO, DR ESTUARDO Marquez Attending Unavailable MARCELINO, DR ESTUARDO Marquez Consulting Unavailable CHUCK, NIDA Primary Care Unavailable SEBAS ., DR HALIMA Martell Admitting Unavailable SEBAS ., DR HALIMA Martell Attending Unavailable MINDY FAN Consulting Unavailable ONIEL WILSON Consulting Unavailable ANDRAMARCELINO Admitting Unavailable ANDRAMARCELINO HARRY Attending Unavailable CHUCK, NIDA Primary Care Unavailable Asaad, Imad Unavailable Shaikh Alvarez MD Primary Care Provider SHAIKH ALVAREZ Attending Unavailable FRANCE REINA Attending Unavailable SHAIKH ALVAREZ Referring Unavailable OSVALDO LEE Attending Unavailable SHAIKH ALVAREZ Referring Unavailable Medications Current Medications Medication Drug Class(es) Dates [...] MEQ ER tablet take [address] [facility] every twelve hours Potassium Chloride ER 20 MEQ 6 tablets Orally bid for 90 day(s) Active take [address] [facility] every twelve hours predniSONE 20 mg oral [...] 11-08-2021 Episodic Other aftercare (1 source) Other intermediate (current) drug therapy; Translations: [OTH USP CURRENT DRUG THERAPY] Onset: 10-14-2021 Episodic Other [...] Facility Magnesiumon 11-25-2022 Magnesium [Mass/Vol] 1.1 mg/dL [facility] [employer] Other Renal Function Panelon 11-25 Albumin [Mass/Vol] 3.9 g/dL [facility] [employer] Other Calcium [Mass/Vol] 8.8 mg/dL [facility] [employer] Other Chloride [Moles/Vol] 96 mmol/L [facility] [employer] Other CO2 [Moles/Vol] 32.9 mmol/L [facility] [employer] Other Creatinine [Mass/Vol] 0.83 mg/dL [facility] [employer] Other Glucose [Mass/Vol] 138 mg/dL [facility] [employer] Other Phosphate [Mass/Vol] 4.0 mg/dL [facility] [employer] Other Potassium [Moles/Vol] 2.4 mmol/L [facility] [employer] Other Sodium [Moles/Vol] 139 mmol/L [facility] [employer] Other Urea nitrogen [Mass/Vol] 13.0 mg/dL [facility] [employer] Other Renal Function Panel [facility] [employer] Other Renal Function Panel >60 [facility] [employer] Other GLYCOHEMOGLOBIN A1Con 2022 ADA RECOMMENDATION SEE BELOW Normal [facility] Comment on above: Result Comment: ADA RECOMMENDED LIMIT 4.0 - 6.0 ADA THERAPEUTIC TARGET < 7.0 ACTION SUGGESTED > 7.0 Performed By: #### A 1C #### [facility] [address] [place] [address] Dr. Jossue Centeno Glucose [Mass/Vol] 108 mg/dL Normal [facility] Comment on above: Performed By: #### A 1C #### [facility] [address] [place] [address] Dr. Jossue Centeno HbA1c (Bld) [Mass fraction] 5.4 % Normal 4.5-6.2 [facility] Comment on above: Performed By: #### A 1C #### [facility] [address] [place] [address] Dr. Jossue Centeno Outside Recordson 01-28-2022 Outside Records [id number] 85#1.00OTGTIFF [facility] CBC AUTO DIFFon 01-27-2022 BASO # 0.1 103/ul Normal 0.0-0.1 [facility] Comment on above: Performed By: #### C BC #### [facility] [address] [place] [address] Dr. Jossue Centeno Basophils/100 WBC (Bld) 0.8 % Normal 0.2-2.0 [facility] Comment on above: Performed By: #### C BC #### [facility] [address] [place] [address] Dr. Jossue Centeno EO # 0.6 103/ul Normal 0.0-0.7 [facility] Comment on above: Performed By: #### C BC #### [facility] [address] [place] [address] Dr. Jossue Centeno Eosinophils/100 WBC (Bld) 5.8 % Normal 0.9-7.0 [facility] Comment on above: Performed By: #### C BC #### [facility] [address] [place] [address] Dr. Jossue Centeno Erythrocyte distribution width (RBC) [Ratio] 12.4 % Normal 11.0-15.0 [facility] Comment on above: Performed By: #### C BC #### [facility] [address] [place] [address] Dr. Jossue Centeno Hematocrit (Bld) [Volume fraction] 47.4 % Normal 42.0-54.0 [facility] Comment on above: Performed By: #### C BC #### [facility] [address] [place] [address] Dr. Jossue Centeno Hemoglobin (Bld) [Mass/Vol] 16.7 g/dL Normal 14.0-18.0 [facility] Comment on above: Performed By: #### C BC #### [facility] [address] [place] [address] Dr. Jossue Centeno IG # 0.02 10e3/ul Normal 0.00-0.03 [facility] Comment on above: Performed By: #### C BC #### [facility] [address] [place] [address] Dr. Jossue Centeno IG % 0.2 % Normal 0.0-0.5 [facility] Comment on above: Performed By: #### C BC #### [facility] [address] [place] [address] Dr. Jossue Centeno LYMPH # 2.2 103/ul Normal 1.2-3.8 [facility] Comment on above: Performed By: #### C BC #### [facility] [address] [place] [address] Dr. Jossue Centeno Lymphocytes/100 WBC (Bld) 23.1 % Normal 20.5-60.0 [facility] Comment on above: Performed By: #### C BC #### [facility] [address] [place] [address] Dr. Jossue Centeno MANUAL DIFF REQ NO Normal [facility] Comment on above: Performed By: #### C BC #### [facility] [address] [place] [address] Dr. Jossue Centeno MCH (RBC) [Entitic mass] 28.2 pg Normal 25.9-34.0 [facility] Comment on above: Performed By: #### C BC #### [facility] [address] [place] [address] Dr. Jossue Centeno MCHC (RBC) [Mass/Vol] 35.2 g/dL Normal 29.9-35.2 [facility] Comment on above: Performed By: #### C BC #### [facility] [address] [place] [address] Dr. Jossue Centeno MCV (RBC) [Entitic vol] 79.9 fL Critically low 80.0-94.0 [facility] Comment on above: Performed By: #### C BC #### [facility] [address] [place] [address] Dr. Jossue Centeno MONO # 0.7 103/ul Normal 0.3-0.8 [facility] Comment on above: Performed By: #### C BC #### [facility] [address] [place] [address] Dr. Jossue Centeno Monocytes/100 WBC (Bld) 7.6 % Normal 1.7-12.0 [facility] Comment on above: Performed By: #### C BC #### [facility] [address] [place] [address] Dr. Jossue Centeno NEUT # 5.9 103/ul Normal 1.4-6.5 [facility] Comment on above: Performed By: #### C BC #### [facility] [address] [place] [address] Dr. Jossue Centeno Neutrophils/100 WBC (Bld) 62.5 % Normal 43.0-75.0 [facility] Comment on above: Performed By: #### C BC #### [facility] [address] [place] [address] Dr. Jossue Centeno Platelet mean volume (Bld) [Entitic vol] 8.5 fL Critically low 9.5-13.5 [facility] Comment on above: Performed By: #### C BC #### [facility] [address] [place] [address] Dr. Jossue Centeno PLT 335 103/ul Normal 150-450 [facility] Comment on above: Performed By: #### C BC #### [facility] [address] [place] [address] Dr. Jossue Centeno RBC 5.93 106/ul Normal 4.70-6.10 [facility] Comment on above: Performed By: #### C BC #### [facility] [address] [place] [address] Dr. Jossue Centeno WBC 9.5 103/ul Normal 4.0-11.0 [facility] Comment on above: Performed By: #### C BC #### [facility] [address] [place] [address] Dr. Jossue Centeno MAGNESIUMon 01-27-2022 Magnesium [Mass/Vol] 1.5 mg/dL Critically low 1.8-2.4 [facility] Comment on above: Performed By: #### K #### [facility] [address] [place] [address] Dr. Jossue Centeno PROF 14(COMP METB)on 022 Albumin [Mass/Vol] 4.1 g/dL Normal 3.4-5.0 [facility] Comment on above: Performed By: #### M Cheryl, CMP #### [facility] [address] [place] [address] Dr. Jossue Centeno Albumin/Globulin [Mass ratio] 1.0 {ratio} Normal [facility] Comment on above: Performed By: #### M Cheryl, CMP #### [facility] [address] [place] [address] Dr. Jossue Centeno ALP [Catalytic activity/Vol] 107 U/L Normal 46-116 [facility] Comment on above: Performed By: #### M Cheryl, CMP #### [facility] [address] [place] [address] Dr. Jossue Centeno ALT [Catalytic activity/Vol] 50 U/L Normal 16-63 [facility] Comment on above: Performed By: #### M Cheryl, CMP #### [facility] [address] [place] [address] Dr. Jossue Centeno Anion gap [Moles/Vol] 12.1 mmol/L Normal [facility] Comment on above: Performed By: #### M G, CMP #### [facility] [address] [place] [address] Dr. Jossue Centeno AST [Catalytic activity/Vol] 25 U/L Normal 15-37 [facility] Comment on above: Performed By: #### M G, CMP #### [facility] [address] [place] [address] Dr. Jossue Centeno Bilirubin [Mass/Vol] 0.6 mg/dL Normal 0.2-1.0 [facility] Comment on above: Performed By: #### M G, CMP #### [facility] [address] [place] [address] Dr. Jossue Centeno Calcium [Mass/Vol] 9.3 mg/dL Normal 8.5-10.1 [facility] Comment on above: Performed By: #### Isabell Luna, CMP #### [facility] [address] [place] [address] Dr. Jossue Centeno Chloride [Moles/Vol] 97 mmol/L Critically low 98-107 [facility] Comment on above: Performed By: #### Isabell Luna, CMP #### [facility] [address] [place] [address] Dr. Jossue Centeno CO2 [Moles/Vol] 32.1 mmol/L Critically high 21.0-32.0 [facility] Comment on above: Performed By: #### Isabell Luna, CMP #### [facility] [address] [place] [address] Dr. Jossue Centeno Creatinine [Mass/Vol] 0.76 mg/dL Normal 0.70-1.30 [facility] Comment on above: Performed By: #### Isabell G, CMP #### [facility] [address] [place] [address] Dr. Jossue Centeno EGFR-AF PORTUGUESE >60 Normal >=60 [facility] Comment on above: Performed By: #### Isabell G, CMP #### [facility] [address] [place] [address] Dr. Jossue Centeno EGFR-NON AF PORTUGUESE >60 Normal >=60 [facility] Comment on above: Performed By: #### M G, CMP #### [facility] [address] [place] [address] Dr. Jossue Centeno Globulin (S) [Mass/Vol] 4.1 g/dL Normal [facility] Comment on above: Performed By: #### M G, CMP #### [facility] [address] [place] [address] Dr. Jossue Centeno Glucose [Mass/Vol] 92 mg/dL Normal 74-106 [facility] Comment on above: Performed By: #### M G, CMP #### [facility] [address] [place] [address] Dr. Jossue Centeno Potassium [Moles/Vol] 3.2 mmol/L Critically low 3.5-5.1 [facility] Comment on above: Performed By: #### M G, CMP #### [facility] [address] [place] [address] Dr. Jossue Centeno Protein [Mass/Vol] 8.2 g/dL Normal 6.4-8.2 [facility] Comment on above: Performed By: #### M G, CMP #### [facility] [address] [place] [address] Dr. Jossue Centeno Sodium [Moles/Vol] 138 mmol/L Normal 136-145 [facility] Comment on above: Performed By: #### M G, CMP #### [facility] [address] [place] [address] Dr. Jossue Centeno Urea nitrogen [Mass/Vol] 11.0 mg/dL Normal 7.0-18.0 [facility] Comment on above: Performed By: #### M G, CMP #### [facility] [address] [place] [address] Dr. Jossue Centeno Urea nitrogen/Creatinine [Mass ratio] 14.5 mg/mg Normal [facility] Comment on above: Performed By: #### M G, CMP #### [facility] [address] [place] [address] Dr. Jossue Centeno Outside Recordson 12-08-2021 Outside Records [id number] 03#1.00OTGTIFF [facility] Office Visit (Cardiology)on 12-02-2021 Follow-up visit Diagnoses/Problems Assessed Atypical chest pain (786.59) (R07.89) Cardiac enzymes elevated (790.5) (R74.8) Hypokalemia (276.8) (E87.6) Hypomagnesemia (275.2) (E83.42) Class 1 obesity with body mass index (BMI) of 31.0 to 31.9 in adult (278.00,V85.31) (E66.9,Z68.31) Never a smoker Orders Atypical chest pain Echocardiogram; Status:Hold For - Scheduling,Retrospe ctive Authorization; Requested for:[id number]; Atypical chest pain, Cardiac enzymes elevated, Hypokalemia, Hypomagnesemia Cardiac Stress Test; Status:Hold For - Scheduling,Retrospe ctive Authorization; Requested for:[id number]; Class 1 obesity with body mass index (BMI) of 31.0 to 31.9 in adult Healthy Weight Tips; Status:Complete - Retrospective Authorization; Done: [id number] SocHx: Never a smoker Tobacco Use Screening; Status:Complete; Done: [id number] Tobacco Use Screening; Status:Complete; Done: [id number] Tobacco Use Screening; Status:Complete; Done: [id number] Patient Instructions By signing my name below, [...] episode of atypical right-sided chest discomfort over Dorothy 4 associated with ER visit and subsequent isolated [...] negative for complaint. Vitals Vital Signs Recorded: [id number] 09:05AMRecorded: [id number] 09:04AM [id number], LUE, Lssjclb068, RUE, Sitting Zntrugnnw88, LUE, Ptxsptn25, RUE, Sitting Heart Rate66, Apical Height5 ft 10 in Avnknz470 lb BMI Fthlwqenia96.14 kg/m2 BSA Calculated2.16 Tobacco Useb) No PHQ-2 [...] 2+ bilate (more content not included)... Normal [employer] Tobacco Screening.on 022 Adult depression screening assessment No [facility] Work Phone: Fall risk assessment c) Not medically indicated [facility] Work Phone: Tobacco use status CPHS b) No [facility] Work Phone: POTASSIUMon 11-16-2021 Potassium [Moles/Vol] 3.8 mmol/L Normal 3.5-5.1 [facility] Comment on above: Performed By: #### K #### [facility] [address] [place] [address] Dr. Jossue Centeno Lab - Other Lab [facility] Lab - Other Lab Results [id number] 09#1.00OTGTIFF Normal [facility] POTASSIUMon 11-12-2021 Potassium [Moles/Vol] 3.7 mmol/L Normal 3.5-5.1 [facility] Comment on above: Performed By: #### K #### [facility] [address] [place] [address] Dr. Jossue Centeno HEMOGRAM AND PLATELon 2021 Hematocrit (Bld) [Volume fraction] 45.0 % Normal 42.0-54.0 [facility] Comment on above: Performed By: #### H H #### [facility] [address] [place] [address] Dr. Jossue Centeno Hemoglobin (Bld) [Mass/Vol] 15.1 g/dL Normal 14.0-18.0 [facility] Comment on above: Performed By: #### H H #### [facility] [address] [place] [address] Dr. Jossue Centeno MCH (RBC) [Entitic mass] 27.9 pg Normal 25.9-34.0 [facility] Comment on above: Performed By: #### H H #### [facility] [address] [place] [address] Dr. Jossue Centeno MCHC (RBC) [Mass/Vol] 33.6 g/dL Normal 29.9-35.2 [facility] Comment on above: Performed By: #### H H #### [facility] [address] [place] [address] Dr. Jossue Centeno MCV (RBC) [Entitic vol] 83.2 fL Normal 80.0-94.0 [facility] Comment on above: Performed By: #### H H #### [facility] [address] [place] [address] Dr. Jossue Centeno PLT 299 103/ul Normal 150-450 [facility] Comment on above: Performed By: #### H H #### [facility] [address] [place] [address] Dr. Jossue Centeno RBC 5.41 106/ul Normal 4.70-6.10 [facility] Comment on above: Performed By: #### H H #### [facility] [address] [place] [address] Dr. Jossue Centeno WBC 10.2 103/ul Normal 4.0-11.0 [facility] Comment on above: Performed By: #### H H #### [facility] [address] [place] [address] Dr. Jossue Centeno MAGNESIUMon 11-11-2021 Magnesium [Mass/Vol] 1.3 mg/dL Critically low 1.8-2.4 [facility] Comment on above: Performed By: #### K #### [facility] [address] [place] [address] Dr. Jossue Centeno Outside Recordson 11-11-2021 Outside Records [id number] 03#1.00OTGTIFF Normal [facility] RENAL FUNCTION PANELon 11-11 Albumin [Mass/Vol] 4.1 g/dL Normal 3.4-5.0 [facility] Comment on above: Performed By: #### K #### [facility] [address] [place] [address] Dr. Jossue Centeno Calcium [Mass/Vol] 9.4 mg/dL Normal 8.5-10.1 [facility] Comment on above: Performed By: #### K #### [facility] [address] [place] [address] Dr. Jossue Centeno Chloride [Moles/Vol] 102 mmol/L Normal 98-107 [facility] Comment on above: Performed By: #### K #### [facility] [address] [place] [address] Dr. Jossue Centeno CO2 [Moles/Vol] 30.7 mmol/L Normal 21.0-32.0 [facility] Comment on above: Performed By: #### K #### [facility] [address] [place] [address] Dr. Jossue Centeno Creatinine [Mass/Vol] 0.83 mg/dL Normal 0.70-1.30 [facility] Comment on above: Performed By: #### K #### [facility] [address] [place] [address] Dr. Jossue Centeno EGFR-AF PORTUGUESE >60 Normal >=60 [facility] Comment on above: Performed By: #### K #### [facility] [address] [place] [address] Dr. Jossue Centeno EGFR-NON AF PORTUGUESE >60 Normal >=60 [facility] Comment on above: Performed By: #### K #### [facility] [address] [place] [address] Dr. Jossue Centeno Glucose [Mass/Vol] 94 mg/dL Normal 74-106 [facility] Comment on above: Performed By: #### K #### [facility] [address] [address] [address] Jossue Centeno Phosphate [Mass/Vol] 2.4 mg/dL Critically low 2.6-4.7 [facility] Comment on above: Performed By: #### K #### [facility] [address] [address] [address] Jossue Centeno Potassium [Moles/Vol] 5.7 mmol/L Critically high 3.5-5.1 [facility] Comment on above: Performed By: #### K #### [facility] [address] [address] [address] Jossue Centeno Sodium [Moles/Vol] 139 mmol/L Normal 136-145 [facility] Comment on above: Performed By: #### K #### [facility] [address] [place] [address] Dr. Jossue Centeno Urea nitrogen [Mass/Vol] 13.0 mg/dL Normal 7.0-18.0 [facility] Comment on above: Performed By: #### K #### [facility] [address] [address] [address] Jossue Centeno CARDIAC ESTUARDO 3-6on 2 CK [Catalytic activity/Vol] 536 U/L Critically high 39-308 [facility] Comment on above: Performed By: #### K #### [facility] [address] [place] [address] Dr. Jossue Centeno CK.MB [Mass/Vol] 3.09 ng/mL Normal <=3.60 [facility] Comment on above: Performed By: #### K #### [facility] [address] [place] [address] Dr. Jossue Centeno HSTROP 179.4 pg/mL Critically high 4.0-76.1 [facility] Comment on above: Result Comment: CUT- OFF POINTS HAVE BEEN ESTABLISHED BASED ON THE FOURTH UNIVERSAL DEFINITIONS OF MYOCARDIAL INFARCTION. THE UPPER REFERENCE LIMIT (URL) OF TROPONIN, DEFINED THE 99TH PERCENTILE OF cTnI DISTRIBUTION IN A REFERENCE POPULATION, HAS BEEN CONFIRMED THE DECISION THRESHOLD FOR IA DIAGNOSIS. TEST REPEATED. CRITICAL VALUE VERIFIED Performed By: #### K #### [facility] [address] [place] [address] Dr. Jossue Centeno CARDIAC ESTUARDO ADMITon 022 CK [Catalytic activity/Vol] 607 U/L Critically high 39-308 [facility] Comment on above: Performed By: #### B MARY QUEEN #### [facility] [address] [place] [address] Dr. Jossue Centeno CK.MB [Mass/Vol] 3.82 ng/mL Critically high <=3.60 [facility] Comment on above: Result Comment: TEST REPEATED. CRITICAL VALUE VERIFIED Performed By: #### B MARY QUEEN #### [facility] [address] [place] [address] Dr. Jossue Centeno HSTROP 187.8 pg/mL Critically high 4.0-76.1 [facility] Comment on above: Result Comment: CUT- OFF POINTS HAVE BEEN ESTABLISHED BASED ON THE FOURTH UNIVERSAL DEFINITIONS OF MYOCARDIAL INFARCTION. THE UPPER REFERENCE LIMIT (URL) OF TROPONIN, DEFINED THE 99TH PERCENTILE OF cTnI DISTRIBUTION IN A REFERENCE POPULATION, HAS BEEN CONFIRMED THE DECISION THRESHOLD FOR IA DIAGNOSIS. TEST REPEATED. CRITICAL VALUE VERIFIED Performed By: #### B MARY QUEEN #### [facility] [address] [place] [address] Dr. Jossue Centeno MELVI 100 ng/mL Critically high 16-96 [facility] Comment on above: Performed By: #### B MARY QUEEN #### [facility] [address] [place] [address] Dr. Jossue Centeno CBC AUTO DIFFon 11-08-2021 BASO # 0.1 103/ul Normal 0.0-0.1 [facility] Comment on above: Performed By: #### K #### [facility] [address] [place] [address] Dr. Jossue Centeno Basophils/100 WBC (Bld) 0.5 % Normal 0.2-2.0 [facility] Comment on above: Performed By: #### K #### [facility] [address] [place] [address] Dr. Jossue Centeno EO # 0.2 103/ul Normal 0.0-0.7 [facility] Comment on above: Performed By: #### K #### [facility] [address] [place] [address] Dr. Jossue Centeno Eosinophils/100 WBC (Bld) 1.3 % Normal 0.9-7.0 [facility] Comment on above: Performed By: #### K #### [facility] [address] [place] [address] Dr. Jossue Centeno Erythrocyte distribution width (RBC) [Ratio] 12.6 % Normal 11.0-15.0 [facility] Comment on above: Performed By: #### K #### [facility] [address] [place] [address] Dr. Jossue Centeno Hematocrit (Bld) [Volume fraction] 41.4 % Critically low 42.0-54.0 [facility] Comment on above: Performed By: #### K #### [facility] [address] [place] [address] Dr. Jossue Centeno Hemoglobin (Bld) [Mass/Vol] 14.5 g/dL Normal 14.0-18.0 [facility] Comment on above: Performed By: #### K #### [facility] [address] [place] [address] Dr. Josseu Centeno IG # 0.05 10e3/ul Critically high 0.00-0.03 [facility] Comment on above: Performed By: #### K #### [facility] [address] [place] [address] Dr. Jossue Centeno IG % 0.4 % Normal 0.0-0.5 [facility] Comment on above: Performed By: #### K #### [facility] [address] [place] [address] Dr. Jossue Centeno LYMPH # 1.6 103/ul Normal 1.2-3.8 [facility] Comment on above: Performed By: #### K #### [facility] [address] [place] [address] Dr. Jossue Centeno Lymphocytes/100 WBC (Bld) 12.4 % Critically low 20.5-60.0 [facility] Comment on above: Performed By: #### K #### [facility] [address] [place] [address] Dr. Jossue Centeno MANUAL DIFF REQ NO Normal [facility] Comment on above: Performed By: #### K #### [facility] [address] [place] [address] Dr. Jossue Centeno MCH (RBC) [Entitic mass] 28.3 pg Normal 25.9-34.0 [facility] Comment on above: Performed By: #### K #### [facility] [address] [place] [address] Dr. Jossue Centeno MCHC (RBC) [Mass/Vol] 35.0 g/dL Normal 29.9-35.2 [facility] Comment on above: Performed By: #### K #### [facility] [address] [place] [address] Dr. Jossue Centeno MCV (RBC) [Entitic vol] 80.7 fL Normal 80.0-94.0 [facility] Comment on above: Performed By: #### K #### [facility] [address] [place] [address] Dr. Jossue Centeno MONO # 0.9 103/ul Critically high 0.3-0.8 [facility] Comment on above: Performed By: #### K #### [facility] [address] [place] [address] Dr. Jossue Centeno Monocytes/100 WBC (Bld) 6.9 % Normal 1.7-12.0 [facility] Comment on above: Performed By: #### K #### [facility] [address] [place] [address] Dr. Jossue Centeno NEUT # 10.3 103/ul Critically high 1.4-6.5 [facility] Comment on above: Performed By: #### K #### [facility] [address] [place] [address] Dr. Jossue Centeno Neutrophils/100 WBC (Bld) 78.5 % Critically high 43.0-75.0 [facility] Comment on above: Performed By: #### K #### [facility] [address] [place] [address] Dr. Jossue Centeno Platelet mean volume (Bld) [Entitic vol] 9.5 fL Normal 9.5-13.5 [facility] Comment on above: Performed By: #### K #### [facility] [address] [place] [address] Dr. Jossue Centeno PLT 306 103/ul Normal 150-450 [facility] Comment on above: Performed By: #### K #### [facility] [address] [place] [address] Dr. Jossue Centeno RBC 5.13 106/ul Normal 4.70-6.10 [facility] Comment on above: Performed By: #### K #### [facility] [address] [place] [address] Dr. Jossue Centeno WBC 13.1 103/ul Critically high 4.0-11.0 [facility] Comment on above: Performed By: #### K #### [facility] [address] [place] [address] Dr. Jossue Centeno LIVER PROFILEon 11-08-2021 Albumin [Mass/Vol] 3.8 g/dL Normal 3.4-5.0 [facility] Comment on above: Performed By: #### L IVER #### [facility] [address] [place] [address] Dr. Jossue Centeno Albumin/Globulin [Mass ratio] 1.1 {ratio} Normal [facility] Comment on above: Performed By: #### L IVER #### [facility] [address] [place] [address] Dr. Jossue Centeno ALP [Catalytic activity/Vol] 91 U/L Normal 46-116 [facility] Comment on above: Performed By: #### L IVER #### [facility] [address] [place] [address] Dr. Jossue Centeno ALT [Catalytic activity/Vol] 69 U/L Critically high 16-63 [facility] Comment on above: Performed By: #### L IVER #### [facility] [address] [place] [address] Dr. Jossue Centeno AST [Catalytic activity/Vol] 40 U/L Critically high 15-37 [facility] Comment on above: Performed By: #### L IVER #### [facility] [address] [address] [address] Jossue Centeno BILI, CONJUGATED 0.1 mg/dL Normal 0.0-0.2 [facility] Comment on above: Performed By: #### L IVER #### [facility] [address] [address] [address] Jossue Centeno Bilirubin [Mass/Vol] 0.6 mg/dL Normal 0.2-1.0 [facility] Comment on above: Performed By: #### L IVER #### [facility] [address] [place] [address] Dr. Jossue Centeno Globulin (S) [Mass/Vol] 3.4 g/dL Normal [facility] Comment on above: Performed By: #### L IVER #### [facility] [address] [address] [address] Jossue Centeno Protein [Mass/Vol] 7.2 g/dL Normal 6.4-8.2 [facility] Comment on above: Performed By: #### L IVER #### [facility] [address] [place] [address] Dr. Jossue Centeno PROF CHEM 8 (BAS METB)on Anion gap [Moles/Vol] 10.3 mmol/L Normal [facility] Comment on above: Performed By: #### B MARY QUEEN #### [facility] [address] [place] [address] Dr. Jossue Centeno Calcium [Mass/Vol] 8.9 mg/dL Normal 8.5-10.1 [facility] Comment on above: Performed By: #### B MARY QUEEN #### [facility] [address] [place] [address] Dr. Jossue Centeno Chloride [Moles/Vol] 97 mmol/L Critically low 98-107 [facility] Comment on above: Performed By: #### B MARY QUEEN #### [facility] [address] [address] [address] Jossue Centeno CO2 [Moles/Vol] 34.0 mmol/L Critically high 21.0-32.0 [facility] Comment on above: Performed By: #### B BERNICE, CMADM #### [facility] [address] [address] [address] Jossue Centeno Creatinine [Mass/Vol] 0.89 mg/dL Normal 0.70-1.30 [facility] Comment on above: Performed By: #### B BERNICE, CMADM #### [facility] [address] [address] [address] Jossue Centeno EGFR-AF PORTUGUESE >60 Normal >=60 [facility] Comment on above: Performed By: #### B BERNICE, CMADM #### [facility] [address] [address] [address] Jossue Centeno EGFR-NON AF PORTUGUESE >60 Normal >=60 [facility] Comment on above: Performed By: #### B BERNICE, CMADM #### [facility] [address] [address] [address] Jossue Centeno Glucose [Mass/Vol] 98 mg/dL Normal 74-106 [facility] Comment on above: Performed By: #### B BERNICE, CMADM #### [facility] [address] [address] [address] Jossue Centeno Potassium [Moles/Vol] 2.4 mmol/L Critically low 3.5-5.1 [facility] Comment on above: Result Comment: TEST REPEATED. CRITICAL VALUE VERIFIED Performed By: #### B BERNICE, CMADM #### [facility] [address] [address] [address] Jossue Centeno Sodium [Moles/Vol] 139 mmol/L Normal 136-145 [facility] Comment on above: Performed By: #### B BERNICE, CMADM #### [facility] [address] [address] [address] Jossue Centeno Urea nitrogen [Mass/Vol] 14.0 mg/dL Normal 7.0-18.0 [facility] Comment on above: Performed By: #### B MARY QUEEN #### [facility] [address] [place], [place] [address] Dr. Jossue Centeno Urea nitrogen/Creatinine [Mass ratio] 15.7 mg/mg Normal [facility] Comment on above: Performed By: #### B MARY QUEEN #### [facility] [address] [place], [place] [address] Dr. Jossue Centeno XR CHEST 2 Von [...] by: ONIEL WILSON Date: 2021-11-08 20:44 Normal [facility] Coding Summaryon 06-25-2021 Coding Summary HTMLBase 64 YcxnrhkgTIk7mGj+PGh lYWQ+DH8RPJXzY40tgS LwiN5ZK3mJNN3YXCDSN CYKCV9TSV4ozTM3CCfp N7OhhgKs QyqtzXAqXJ35HSa1UIO 0nNfkKFufnE7eaPXuS9 g1QiLsST96aR64RAmuE JAvBjM5KkDwhakeyOFy Z9xuVlUoeFBeWil+PHR hYmxlIHdpZHRoPScxMD GhCgTswOzxNT3aOd7vU GVyLWNvbGxhcHNlOiBj n5qeMDVuBDwaRO1zfXe hL4AuzOL6KLYry5y3Wk 48dHI+VBAoXRK8qMheR Vnvj843RzNre2cmEYP2 tHVmGAdkGTM5Z20xh3W 2OPHmITOyKNR3xWG1jL 7yoJnpzjaaW4QmmSWoR bZ9SGL1iGSabI7hfGjt rrdafP9oOet+H76OOR6 CSUGEBQ7FIrn3V3GhHz wvdHI+IQ85HDMeQZ45a HXmwDIdo1qnjRc5OgQp SUQsEBJ7xBkwIHeas7U bXSYoS83nnBEoz7A0FO KxkZvzkSUuJoJrnMP8s Z8aDDcocflus4dfovut Cknhu7jzqa75aU64K41 vRLsxIXYwCPB3EJRyDV ZnaGnsqd3piI5cMn3+I Ljst0laq0sqjMd4ZjNl IPAdpsAyoAjfZYM9o1L eTw07I0YzgHxgg5WxCl d9eg00pGVoy1Q2mKF1J GdgPOAvdB7qGCmgTmX4 ZESrReJmjD92rVYyRQm gRy4jvHvrsOzvVM9aSM SjmlarJHNsnK8cTXFtb NCewYwySS0vNXGvohup t721BkFgGHW2NXFxeOR vV1YhzL7dNqYnAPOuZO QbK6KkaWJaOYceT217L VyaJxS0DONjyzMnL8So VLUlqYduDgK2i0G1Ru5 Wp7GonxywFQV8BPixEG HaOpC2TgUsFvB4P0QrO ij0ROBxsSluJP3dK9Xs DORduirostvdsJJ7NEQ lPAFawO33lNLuKGznOc 5gc1D7t979HXWySNQco W65To1fvIsgURCwnWYM zR8hgtfez5zquodiHfZ lBSYqZZa9SOw7NWZcpB ebGjBmDEA0NxY1OKF2r ACoyO4spWadsfixcI5s Oyc+J59lzO5mZDA5RBX 3trosUDUvszQcDB72CP 42O7BqCclviNXmjZG+P URgqoPitZsrXT0vNmHp k8bzn4IqGSacQ8GcSRL jXZjdMkp3MPMrOMQ1cC T1jV1aKWHpJFqsj9N9j YZ1F9ClntZeww2yv4ty KDHnKDucQ52ifNZvt6Q 4XZMbxJZ6IJPasWtrVu WjtD10Ljt+PGNvbGdyb 0HwFsfgy2dzm0pgeDv6 IjMwJSIgdmFsaWduPSJ 4b3PgHb20J76uGCgrOE RoPSIxNSUiIHZhbGlnb k0kqO7kWu4+PGNvbCB3 nGH9jJ8yVLQkHkL2QRs qE657NkGwaQWvWdgiw4 rjt9gguRr8OdSqPEDxs iWzvOsoVQP2i4JqYx56 P23mKDqlUHOoIMRtJGQ bBPWjfXvvhi4rvS8tPf 8+KN7aj0xuub02mO23x HI+CAAvSTO3wZkxHBvr ASWuvS5tLAajUoJ1YPW pSoSrxK92yYPmEGixRw 7ecTolbEkbUN1rCHXwp sisr982KlUpv4gfYBVq jZMlTIjzVVB4N35qw8F 0PPQkPJEzGXM5fEF1qG 1hbGlnbjogbGVmdDsgd bTohSarOBoaOZasB186 IHRvcDsnPlBhdGllbnQ vWxTeDHc1G5RaEip2BO KdvXhjAT5yzXUkFWddB j2jjFtgbSuhHA3oXTWu itkpk409TeSpm7sgPHZ qrDTmQHgkEHP8Z37vz3 T8UFUpPCSuVGP9mUF7v O4mzQlkgnvmhOOvbTvx xjGheBnbVGzlLJcgK21 6IHRvcDsnPkJpcnRoIE GtjRR4GH79MS23qVSbg 0A7mEY3L4ChMCKlyylu rvudmVR5LDEtIYDrkZ5 0Bz8ugNvwCn7jZNEzON R5CUVssPEnX1BsbI9zQ yTgJVWzQGUyX1FqtUTz NVomY998KIdgYxL1QZQ emjNaL8XjNEFjiCbtBd Z0x3U2Ll5EV8L6OP91F R02zOTjk9V8qAK2D4Qv SPXcltdyjithiEE5EMZ jDDFuvW10Uq6lmQjePi 0iUMYvAOQ9OVOajOBbB 6XouM7gAtPzZUKiOWZi K3FbuRHfPGylE781KZn nMyY5YWMqipQmI0AvSM FpwYxiFyU9q0O6Al9KB Em7RM98WI04yVFcx4B3 zGL3Z6CfHBFnskajtpj uaZH9KOTbUWRqhS92Zm 1hfCslAj7qLLEeMIB0J KGbnIWaU1InsW3xThQe TBCcSLVjY3FxuSYuNRe dL029PZfeClC6GLAqbs YgH4YvDJIplIlmLwX5i 6C7Ul6DWUWzPB19ZKR8 wSJ0YV47VB56H9MxJzt vdGFibGU+PHRhYmxlIH dpZHRoPScxMDAlJyBzd DfzXM0yPe5iNAQpBXPc oLtukTIwYfNtc4sdTPG vYFplCO5buRnxQ0HebB S5UBQxg3o0Mm33Q18bF 3JvdXA+QUSxyAA8rZP3 pF4nAlMzYwG6HBrzJ73 0EyDbnQNgRppqs1hjy0 fklBb2UuO0XWCvkfIlw FgxEUN4d3NeSb01O41r IHdpZHRoPSIxNSUiIHZ xqParql6liW4kAm9+PG XkmBR1yTX6vZ6xYqMpZ pH6HPxuT435RfXatMMn Dvzpv9rad1biiBh7IgD jONSbppDmjSvyIYB7s5 CrSb92F9MupAaum4KyZ lu8xx51mKZkx1U6sKU9 H8EwHCWsicwptIAriGv qMN0eZXPhfajgJAVmvU 1fOYRrK6b9DjGcAmC7Y AljN8CgteM7RYKqvVCs QVayPKC5W29ix1N5YCF yLSXwMAC6rAD3hR9hoZ lnbjogbGVmdDsgdmVyd HfmTLwgWMayO804OSBw wZvsDOIxgE7eMHYcpFW gvFhyFH4vVCEkjbmnEu MHB3BUFDXUCkjHGGEXE ZF1P2GtXqy7LQSvcHfc HU0vtSLoTHizPy8nrCi gcKkoWI9pBXZwbansVE EgwW7qDVHgzEHirWoeE C6fAAFnwrqge667BsUj IZG6XSAicGRkB7EnmF1 vGzZoEBTeVZGoC7ZzaK YpNIcwE182PZwoCyE4N UNbjiTsQ8YcYGAxnLfp IaL8j8G1Mc9yBq1vHT3 mBDp5TO36OY49xKXee5 K8zOC9V6CaBOZfpnhad owtuYK2USPmNFQwmK10 sPLgSGqvGv9wi5I7q46 3NUJhRBQaaV45Ye3qjQ jxLYYbrSTRvV3xwwgvd 0uquagbXoGeTUTcPVj6 BWz4CQUvaDiyNyJqRNO 1FvS9LSN1mIYfpT5vjW paazujbC4xKrm+MjUgW OCzddV8W9JrJhy4HXCc gJwmGC0bxOHhVCqjKg8 yjYmzgRpiOB9nELEmnv rlPWBcmP2zHWSriXMyc JcpBM0bCFDqaftpl608 MoZcBGC4XXHqxRVxI1O qeB0xZuJiTJBjQAMdP9 SghJDsWOylJ915VZfoA iW3HLJewuNaK0SrZYPq aGayYoW5n8F6Zj8IDXj KWU52GE69zBTdv4E4xE A9Z4RqASLqsqjpmplgp UA9GRTuHLUwlO36iHPv XEnvOe8rq6L0e002OHP mWKMfpO98Bm3quFyiQG WgxNEViJ3cdvozf0zlz qxiAaRhNWRtZEf1QOy0 ZZTjmUhtNoNeOWL9OyR 5SPE5mUHbuE3elAhbwf ynvQ1kUrd+B8R6I7RcC jwvdHI+WL28UKJwOC09 vRBxjDOzr9kzrBe6UxV bYMDuCAY0wKtpZFfmq1 IzLMCdV32deVJjr6R6M GNvbGxhcHNlOyBlbXB0 fG8rVWtkjdskq2ziyle aOymso1dngc41dD60K7 9sIHdpZHRoPSIzMCUiI PGhlCszig2ioK6dSg1+ JGHxlVJ0pJY2rY6cJyP qSzI9KKikQ151SgBtmB AxLkgqe4ohw3yxoGy6I jIwJSIgdmFsaWduPSJ0 u7KcCa27P69eYDhkLXL oPSIyMCUiIHZhbGlnbj 7xbH7yFw7+FI5cm8hvw i56zT28dEZ+PHRkIHN0 yMkpRBvqDRBnrX4bWNr gTmY2CYPeNuCooB03nW EnQJlrIu4tbYenfPreU V0dWPKsejrzv402XwDs m1dmMMOgtXHeWBswGHC 1L96ur8H1YRDnAETvWO R3bRT3sW4clMjffqbim GVmdDsgdmVydGljYWwt KOisO766NRNkaGexCyP eeMFbQ3pezwHGOU2iXy wvdGQ+YIVgECB1jCryD JuxLOEvpS7dZNYuZ1v7 QiUsFnW5GIhlR3KtgiB 6IGJvbGQgMTBwdCBUaW 7jlfccz7ockgqaYdPsK PSyXLl3MIq6JOYijNxh JyZsPHJ0EmE6HRB4dKO tkG9gpFrgbqgbhV3rEr c+RklOOjwvdGQ+PHRkI TI5wVeuCLdsPRBetE4u ZBAiX7q8EiEgJvH5SAt sW7FyshB8RZGyeEClVR PnvEKRmZ6ipvaei0dvx tvbJtUpQHCvDEk8RGz0 EBUvaKewIjCzEOM6YxP 8TCP6aBTcvJ6vcAvycc vdvL2zOwg+TVJOOjwvd GQ+XGHfRTP5aWnvSUcr ZPXxyG4mTKYbE1q6AgG kIzA6SApyB8GmofR5TM ToqNMlYEJsnPWYcI8ul vuws8folwlqBiVkOBNg CMe3WDk5HENzmFkgEiK zSSN4OnD6KNQ9sXTafK 6azKduxwlzuD2dDkc+U BU5KEB3PS42OX53F8Lx PjwvdGFibGU+PHRhYmx lIHdpZHRoPScxMDAlJy HrnLvoDI2yIm8uOUEmT OZjfPrgmHAmIbXxe4ol YXB (more content not included)... Normal [facility] XR Ankle Complete Righton XR Ankle Complete [...] MD 06/25/21 1:50 pm Technologist: VINCENT MOTTA [facility] XR Foot 2 Views Righton 06-09 [...] MD 06/25/21 1:50 pm Technologist: VINCENT MOTTA [facility] Consent Formson 04-03-2021 Consent Forms [email or web address] [id number] [email or web address] [facility] Coding Summaryon 03-27-2021 Coding Summary HTMLBase 64 LidfncixHOh4pJq+PGh lYWQ+AS6QNOHqE87urW FbgE1JN0lUEG5BIYNQC USLAG5OZI9avGN4CDgk E2FlssMe CcynmLGwHV95FJm4HJA 8uWzsGQmkuW1aqTBxO6 e0MiIxMC79fH27QMcjL KDnFjX1FgVyaqxmvCBk G3cjOiLgaPSrMux+PHR hYmxlIHdpZHRoPScxMD QeKsWgmZhtDD1lYn7rS GVyLWNvbGxhcHNlOiBj p7sjCDBkTJriOF8qtNm fX9AvkGS9QGFvo3a0Ve 48dHI+JHBkVRJ4lGgpT Hkqt100HvGkz2goUII5 xYOfANqzLGN1M59vs2G 4WJWdOVGlQJI6pVZ2wZ 9beWrhhagfZ2KdlKBoI hQ7OJE6xOGcgY5dfIpp toygmM3nJkz+N00ARL9 IUYUCVB4YEew3Z1JqTc wvdHI+QF26IYRjFT30u KWpnMRyc6nkoUw3OlAk GSTvSUK1qZqrQEouq7Z bGHTlO47iuAUnn8D2YL RfiBgphHNbTnLhuWS0b W9sDAtkeipib4smybgz Bevvq3xsvk42kL27W37 lUFscBDXrAGC6KGFnBG BclTgwxf2tnE9cNf4+I Zphb8vfl3htgGb1MdAe YCTqhnPqcAwyLDX3j1T bSr11H0CejQusx7JsIs k6zg67cOCva4K3sJU9I RvsINCwgQ9pMOnfApN3 APFpPmNwzG92hJKyZXv wHw7ysXehhBxsTW9rBH RagagcDVCeyA1aSYKmn BUseGivKK7zWCYoercp v447CdNbTSD0XFLduMT dH7JboH4tTxBcBMNvTW UsC1TfiJViWJdiD897Y WavKuR9ZJPjvfMxM0Sf NBLqrSytUoH4i6R7Nt9 Uo9WaejjrXYP7RVvnNG FjAtU4UwAdKzG6N1ToB px7VPKhpPkeNO2zZ7Bq PQLehzdmaarmtMZ3JOV qHJSmiM52rLUkEJsgPu 0pm8P9b609LUElXDGbz I28Mv5jwDmwQOMutPBV tL0frcloz8mxzcjcBlP gLQGnJNr4PYi1HOHxbT lyUdKgXCN4NoZ2TBZ0i ZQyjO2zyLgycybquY1b Oyc+B84vpM0uKKX5QZZ 8mohuZVVfvrJaLY44RX 12E8NvFpvonTSvqHI+P FAwsqAhvVgbHD3bJuJk g0zeu2DhJZosH9JaMCX eDIwtUez8EKMrORA1xL M2kP8nEEFwSVvvc6O7g PW1A4CsvcTeph5ci7oo JUDiFWzbK01cbHGev7N 6UDPswES5VZLquJyfFj QsnI68Fdl+PGNvbGdyb 3DaTmwzc9tej0exzJf7 IjMwJSIgdmFsaWduPSJ 6b5FdNd50D85dJKqxDA RoPSIxNSUiIHZhbGlnb j5aoK4nSr2+PGNvbCB3 wJG1kS4pHVOoMhH2NOf tG501QyCdjCVeQyoet7 zxz9rvsGw8DpXdCERtv kEvtQibNRG0m5NiAf03 A87eVWebEQExBSEfMJJ fOABswMwzvv9zuK9sQk 8+WZ4if0qfap78bX88t HI+DBDdOIB4zMypZVhu TLHvkX7mNGsgTuA8BQT kGpLjgE76cILvAFkuRw 2xyVqkaMxlET7gFKUfx qxly784UgNfv8ccMZPp uKPbHAtxKXN1R51fd4G 4ALEsKNKrDFA1bNE4rV 1hbGlnbjogbGVmdDsgd rIqcQbtCGyvYBevD462 IHRvcDsnPlBhdGllbnQ qItYsAYa0P5EzGub0GL MhuDttGU6sxGLfPEdnZ y8bfGijwGqtME5kKTQe fcpup391ZeRlu1jqVAX hpGWiYLmkSBX4G76ce1 D6TYMhHCFjXKI9eVT2l J0wnHgljorprKMbzWta nuXkxPhbVFepDJdcZ73 6IHRvcDsnPkJpcnRoIE MwyLS0JI60HP31fFPjj 5E7mAC5O5GrWSBhbwjp ngwzmHK9NFXhLNHxeS0 2Iw1pnJwhMe2dEGHdVK O3TUFwwNOiI5IcmC8mR mDmGPSeWRMeU3ArzBYu XZpnA240FHhdTtA1PSR fywRuK5MvDOPpaKwlLd T6i3T6Dc1BX2D2NQ63S H38wWZhv0O0fLG8N0Uh HZCqilvfdvfxoYS0SDU tPJPaqE30Uu1iuQbpAq 8xCJHcTZC4GRJogVPhD 8TtjX3zUlRqOPToNDBu B6UdrBDhTFqvX048FGq pQlP5HYWtuaNwP9TqDI WioWujHjE5r7N1Kk9AD Vp0UU11CW64gVIkt1L3 hYZ5H1MnZREsrtmcomm qrQD1JHJbFTCzyS62Gg 7lqSaaFy6tOJPdLYA7Q NPrcXKpZ9UznI9sCjIf SAGvJHZiW4UllMEjTSb cL006NJbbFgU9WPFjis TfZ1NqGVTyzAxeOlX1r 8A0Yn6IVZRnEI50QCS4 rMO8DO98WQ05O2CaRae vdGFibGU+PHRhYmxlIH dpZHRoPScxMDAlJyBzd IvfNX8pQr1fAHCtWIXn xVsksEXyBoPgo6mvAQP gDLzpKA8scTvyZ1AxzN T5DDGrx8z4Ya04V18zO 3JvdXA+XKWbpOM7yRP0 qH6yMpGwDnF2TDtzQ69 7HvFbhXKqMlgau0lum0 plyTk6IcM3QSDvjoHao QztZTE4o3EaPj05V03h IHdpZHRoPSIxNSUiIHZ fdQhnsc3uiU4sKq5+PG KczLA0lSE4lA5xMoAhS wQ5GEdhW591EdYaiPWd Ybjrx2cer3agbXe0XtK uRRRkgrLfvPlfXGS0r1 RpRb55Z3IujMgyg5ObJ cx5pu50qEFkt2D5iJG6 L4UlXSOjqfwvkWPlkVw zQH0vFVObuedpZCOigS 1tHRXvQ3p4EoFvAbY5A PnvI0HlzgN8DBOusXPg NPswAWN0R35if5B5AHN hGLGzYOT2bKA8zX1jrP lnbjogbGVmdDsgdmVyd DkwWDjcRKrtZ908JWUz oCsbSZTtdC3rCFCqjHE fbZzoVW4cPSAyopnzXf DNM7XJJCUKLzvABIUVK DG7A8DhHxg3TDFhzHyd EA7frUBeRGdyFp2pcKm zqExoWG8qNSQryqlxHF BhwB7vHJOfbCWccRacR U3lFNSlxviqc901MkAj MUK2PDBguHKfH0SvhO2 qCbFxANQjBCSzW5KoyO CnLEyaU729YFcxRaN4M MCseoAdJ7VrYQHaqUgo CkO7s3F4Hb4aTr2xPS0 rOCu4KW61BO85rILsx2 Y3lAK6S0ZnGBGwseftm bdyhUG8RZBiBLFeiB25 cMHlFXorBd7rs9E9w45 3UIZyVCFoyP45No9pnK ooNSBweCMDkQ6kmaxwb 3lgidqoXqRqOCBwDBk2 GXv3DQDvpTkuQxXmLVO 3CxT6RKL1qQWirB2oqQ ftfmmwqE0jRcq+MjUgW SWdndX0C1RyOac9WETh kJvbFE8xrGYaKTnmKl3 ksDqubTvjYF6hGRScfk ldQWSjsC6kWMPipAYac KceIJ2xFVBorlepq900 HfThEUQ6MLBjeCHkN5O keB4tOsBwEJEuZVEjY9 WtdAIhSVzzN657XGvyK rV5DBArksFgU1JkHRQi vJfcBkQ1w6A0Yo9FQGi ZUD24QE21uBQvz9O3wI P7E7OeVLPgdiqqbxbrv YY4EPLySCDxdG08kYEj KKmfGf0iu2Q0n489OFJ hWYXaeC62Yf8ipGznHT SxjJTKgJ0uofzvx2yyk lksTeVdBYFlJWx8TSy9 RCEvwQkoVgIqWDL7ArF 0VZX6bKDagM0jfBmrfb kodH6sEsx+W4K1Y4JgF jwvdHI+FR62LXKlBF28 uQIceNJze8yltMe7UbJ tWLWpMCY5kDchPHxhd3 AnTDBpI05ncCVmd5U4L GNvbGxhcHNlOyBlbXB0 zZ5cTJmfznwmp9joayh wFjymi5wyfl88wI36H3 9sIHdpZHRoPSIzMCUiI WZlqIobxv9vxC3kYg4+ JTFcnZN8bKE4nQ2qZaU oFrH4QLbdR021UzRmfI NlNjcuh8ijl5aowLw1F jIwJSIgdmFsaWduPSJ0 x5KvCk04K53ePWvwGVI oPSIyMCUiIHZhbGlnbj 6vsW9xYr6+EN6ub9eli d46tO86hXM+PHRkIHN0 qPiqTJduXDUnsO7mGIu sKmC0MNZgPnTcdK81tH VsUVngKi0vrApxuMnfK X6mAZDtpvjgi925NkVn c6vvEIMhbQOwIKrvPLV 5Z92vq1M2RFIdWVAlFG E8aCY5hU1jjLmofexam GVmdDsgdmVydGljYWwt PLcdC876AUQzuGdtJlG skEIpM6ptwsDFCE9eHa wvdGQ+LRGrECK5dPckG EjePVGceM3iEVBwX2o8 IrNeIvX7NEtgR6LbxhR 6IGJvbGQgMTBwdCBUaW 3inqbbn3itdqqtPdLeW YEjODw3BAj6CKOdqLvi PoGwCTG7YuD4FOC9kYZ kpW4ldCzrbdreoL8oMv c+RklOOjwvdGQ+PHRkI JO9zNoiPUlxOFJxpM6u MLGqU3g7XiWqLoM9GJy tR4MvxkY2HGDxgADoDK SfxZJJqR8jdhslo4xmo trlScJoIQXwXCe5BCz3 XLYmtMxxPgKaKTC3MyW 4QNL8zIAefB2maSralj yjcE0yWtq+TVJOOjwvd GQ+GGQqLHQ1iPfsTAhw IAAfaW8aHRIgH0i0UoR qHwI5CVzjE2XedjF2DB VaqAHlAQMogBEEpP3yx corp2kognuzVsTqKSIu SIs4ZUg2WNTkvAxjBdC wKJX3IlF0REK2mYIowO 1whUntqnqozO6oOpq+U PZ2WHK6IY11FX25I7Ez PjwvdGFibGU+PHRhYmx lIHdpZHRoPScxMDAlJy JvbIvdHV1mJi7iZOArQ NZibEzeuQZgHzDxv4db YXB (more content not included)... [facility] Coding Summary HTMLBase 64 MchgflrqGEr3sXy+PGh lYWQ+OI8IIKOoH13wwF XovS5MN9lAVJ0UMZUHH TDIJM0PSW0mvNZ5BAyg L1RagsNr MjtewNZaIS10EQd9KAS 6oBdtPQxyqF1ayMTmO9 b6YaUlJH00iH20SVcyQ PEhXyS6HpCqhtgvbUYk V1nkArSwvFOfErr+PHR hYmxlIHdpZHRoPScxMD SsErUwvZurUJ5gNg7hZ GVyLWNvbGxhcHNlOiBj q7zdAZFbDOnrJM9gnXf dA5AvuAX9TFRuv8x6Pe 48dHI+BTLfZAF2jPmwZ Oqgf521HeIqf8lcYDS0 fIIaUQjsCFD7D88ye3A 7ZQCbKBRkHOD1pAC9jY 7noLeajwcpX6TukSLcA yW5XJF2mXXaiW7kiGmm aigtkW0aNvx+N91DPF9 TFBPOWN6IWbl1V2DkHo wvdHI+QA07WUCtXL49j VHxdGWjn9sgnGa2TnXd DGVpYWN5xYrlUQujj6B cLUBxG47wrIZpm0K2LJ YawXxchDIlGsBdkQE3f V5sKUtdsswyp1mtqkkv Iziqh0jtyi26oP92F29 eGRtmZELjNVM8BVFqIA CdwSoygy9lwO7nDk4+I Apbo8cau3ehzHj8RxYy YBNaezXmpHvuNMX6c8I dHs76L5TkzJqyv2KhVj r7db55mJGnp8D6xXR2W VkmLALhdV4rWCszTaU8 IROdGeAkgM79nYNzSNu uKz7quOpgyWbhWW8rIP KezmeqRDWgxQ8nCNBux FGpxWhfLJ2tHVJsdptj r601ZmVpGDG9RUTplUD jG3NuaO4uXgPqOIFmJI RtA2WvvFRoDPjcG195C KbtZbV6KHRbzlNoU2Hc QPUsgFuiUgB0b0X8Od5 Ea0XpzeviWWZ5PIziDT LuLgD5PoWfAnS4V2BnD dv2UWGnwOyqXP2yY8Eh EAAmlgvcwudirFF0PQX bCBRomT44aTIuMOdeWp 3de5U9a174PEVpVKJre E27Pf3gqBppSPJnaJXW cE8hjazvr5mpvvymBhV rYLWoZYh0NQf4KQVibB kyRqNsHUH2HdI4GPU9c DOgdH1yrZnuljgedU4l Oyc+R66bvH8oQDA0KYS 6oqwoNWVjbsEqDR85RT 88Y0XjSzgzpXQtgKJ+P YUjbuUbxHglVR8oLmWy u4zde2XaALmsF1RdEIP kWHizObq2CSCfFDC3gD L6iK3lLNNdMQozr2H2g OM9A3DcvvRsid1ij5mq VOWxLRuiV39xvVUrz3T 8GTWdvTR6TSXntFmjLb GgyK93Ykk+PGNvbGdyb 6CaWegmc1zyc1dhcYg1 IjMwJSIgdmFsaWduPSJ 7z5YfOc81C79fJTxmSU RoPSIxNSUiIHZhbGlnb r0sfR6dMq5+PGNvbCB3 hSJ2cK2zVATjJkW2LNm nG817MrMtkCDrIeiow9 aqi1osxSk2AtWvIAPjn iHtrNdmKYM2i5GpRt68 C76rNTqnJDDbMVSrPLN pCZXprJseou2ytN6lGg 8+UC6ma1qwka08wM87x HI+QJWuRXO2vSnrUHje IABzeY5aPVdnNtO3QGN tJeOiwU96yPOrTAsyJo 8dbKxovHtrRV2eKUYoo enil563XdAdk6edOGJe uKCoEDknHUE1K85ss2U 2PJXxRUZoIZB4rHU7yS 1hbGlnbjogbGVmdDsgd pMvbTagAYebSKrdT076 IHRvcDsnPlBhdGllbnQ zTcOoPNi3B9ZrKcy8MJ OacUtoFS2wyYWySJbaX u6jbKaozFdfSM2pJQEm pqxel039RfVbi9hyKBY qzQVrCQwsYZR6E06pq8 C7MTNxPAIaIIK4yRR9c Y8tcOoaeoclqPWgzDwi vhGfyHqyGMcdLYxeX25 6IHRvcDsnPkJpcnRoIE KznSV9TF78EN88nPJob 3I4xXQ7Q2XiFJRjfjiv lrwpdLA3PEDeQKFpgD1 1Oz1igGqtHa5kPPHzFW J2EWNkmYNuM5KsaJ3tD nLeYUNvHWWpQ1NpjDLa OUbdH886PGqvHbK4NBR lwcFpE3YaVDStoGeuHx Z2v2X6Cw3IX7D2VD42N J42rRLgr0T6nMC2R4Kx JLIrnokpmpgywWM3TVI bTXWsxA55Gv5scUffKy 9kUEGeQFW2STHjfOKmE 8PinX9kPqIuUVBmBWCy U0MfjBRxBUaiD202YLr aJrF6QBSjixMoP7GcUQ HqtYguJyH1i8Z4Yv6QU Ja0SE05BM60dGQzv0X1 xXW9L8EmNALwxmzqvub ooZK2MPUdMBFyqU30Nj 1weXwaEt8lMTYfIGW9H GBssRSpD2TovZ3kUkMl AQVeYEUgM0PlfLSpSEr oL447CQjlSbY0DWUxju WzL6NtOMTvoCtvKrJ6x 4Y7Ny0JJOAuJR31HDR8 qRO5XG34ON01Q1GzIqy vdGFibGU+PHRhYmxlIH dpZHRoPScxMDAlJyBzd GyeBV8hVw8yKTGcGSDy wKkcqNEzWmDbx0dyNYR mXVteNI1adYsdS2MqfH R2GBRcp5f8Sm13D55vW 3JvdXA+OHXcaMR9fXI9 nD1gOsGkNmQ3AUopG45 0HcOvbEZpVevnq7awb9 qfgDv3QfQ9RLZotjFmv SncYBY9j6WcOl61U99x IHdpZHRoPSIxNSUiIHZ ipMurhn6poV9gUz5+PG TjdHM5uQC3fG5tBlUvX eD3EDiyM090UfZmkDMd Uldob9wuw3qfjFg8OrA qCVKiwrPgxLegMSG0f6 IgOw51B0XwbAmca3BpV ux8hy65kHKap5B8jRZ5 X6ChXWJgwaasuXQqfIn rFO7uOVBslveeHKKldS 4pEWCsP1r1VaZuErE8Y OgkZ8QmpyE0MMXtbRLr GYmeVSZ0T86qh1U2QZO qDLAuOZI7jSL8qW8vwA lnbjogbGVmdDsgdmVyd BwgUDebMCxzX132VBFk dOqkAWLhdU6zMSPwsEL xiBdcJN3nBNXwiamsJm KQD6QPENSXKlxULORAF IV4J6EvKul2UQXxiIrx TT1llFQwZLumVz7iaMx itUdwQD5cKPEdoetiQF PupD7lPNRzuVXlpBbmW O7dGFPquuyxe596KxNs VOT5PGQrtYFjU6VvxH7 tMkNbESQgOFMgC0DlwF EtGTwiU936RCjmQwM1Y XUzrxOdW9ObUASeqVek YiO1c3L9Ln7uIq0bVW9 aEXp6ZE94BP35aSEkp5 J3yUQ0K3FtQCXiiikat jmpzPA9WCScJKExqR52 aVLaMZsjLz0dt1R2f61 8SNHuPKJnrD36Po7dwZ rnQGPmuJAFuU6cjghpz 6xytlhyXwDnPPLcUWk1 QUd3STTkaEltScEqGQP 9BrA7NHE5hBGzhB2osZ nutxvwxO9gRvt+MjUgW QQqohL5L9WiKla8QWLy qFieQW3egFObWWcbLc2 uwVavoImeBQ9nBUHdrq yfXSEbgE0nPUIxsRQxo MueFG8oKPOafbhit078 VsQqJTP1LDMmaEBuI5O haJ5eDbGuELCgBRQdR8 GzkWZwLDxtQ935UVfoD xA8CLJmctUrN9HlYHGr uCwoMvK2w5D5Yz0XHGk SWP21JN10kHEji5L1xH N8R2LdZLXsomuwtgehg WQ1JCUgDGZizI82zETc FEnsIq9dr9Z4r476QZC mJLXlzV42Kh2fdZdrXW LkxONGsP8cnirxx8wfk zaoDcKjOXLfRKn7MMx8 HAXrqSogVxCvUOM4JlY 7CSL9eFVkvT7gdTzphz qakC3nJbh+A1F2P5VfI jwvdHI+ZD89NVHzUP01 nFZhqJGrd7vbrBk4HrN mYKGgZOX3fDwcXGdgy8 JzLCOhK91jlDCpk3W4G GNvbGxhcHNlOyBlbXB0 mI1eNLuurvqdt0rcmkj wOzphy0ours07bJ31R8 9sIHdpZHRoPSIzMCUiI UEbwSesqc3yyK9oTw1+ NCThrGM3dYO1iH8pSjC mEpX3GYseO004ElLdgI WxYoprv4fpo4gunUs3I jIwJSIgdmFsaWduPSJ0 g3MaVe35I83aCUtjURH oPSIyMCUiIHZhbGlnbj 0stP0kMg3+YP7kd3lbw t67hJ30kFS+PHRkIHN0 kTfnQDkhZZCdnE9tREj vLkB8KDSqDtPlkY87jU DdMIivEm4iaPygmOquM B6mTVUbvcjzv045VjWi m1ncDTQdwFJcUQptEXC 1V15xc8M0RHXkCRPnHY T3fYE6wX8wlPcmbnzuz GVmdDsgdmVydGljYWwt KKzrX449YPChvUrpCaX nbRDkQ5pycjZLCC8jZg wvdGQ+HUNeMWV6iRpzN IxrNMAhmC2jLPVzQ9j4 UgXyRtE0MVxkE0ZgnlC 6IGJvbGQgMTBwdCBUaW 4movshy1irmghbJqQhI WLqLFa9EBo3MXHcjRuk GeKpMUH1QjM5XTM9nHV baY2xiTjofzoqdJ2hEh c+RklOOjwvdGQ+PHRkI DU3dMwcSPbsHHHvoU8d POTpW3n7GhNvWyY8WQq uV6TxmnM2COGxfGQeHR QhrKECkD3bifhtu0atf jhsDmDmRHQcWEz8AHy2 WYJzsCwoClNnLBJ1BnG 6YCQ9iGYjzK6yrWvujy xyqE6hAhx+TVJOOjwvd GQ+RCVhBXZ2rRjaLFac TNMynC4pGYVkE8o4HsZ nJgP6NRegV3EmpiL7RJ CxxKLgBZMwyHYOeC1vt bmkd6xekitlDkRmEEZe NMd9QZh9VQJooVafRjE mEQR7KuU1MXO3jCLkyF 5gcInorchhyK2mLuv+U JZ0QDR4XN77VW76P8Id PjwvdGFibGU+PHRhYmx lIHdpZHRoPScxMDAlJy BcdFlyFU8sYs8gZDFxY OTmeUanoKZcOkGsn7ie YXB (more content not included)... Normal [facility] .Auto Diff 1on 03-24-2021 Auto Story % 6 % Normal 1-12 [facility] Comment on above: Performed By: #### 7 [id number], [id number], [id number], [id number] #### [facility] (DEFAULT) [address] [place] [address] 86224 Baso Abs# 0.0 x10 Normal 0.0-0.2 [facility] Comment on above: Performed By: #### 7 757609, [id number], 0459872, [id number] #### [facility] (DEFAULT) [address] [place] [address] Basophils/100 WBC (Bld) 0.2 % Normal 0.2-2.0 [facility] Comment on above: Performed By: #### 7 [id number], [id number], 8996481, [id number] #### [facility] (DEFAULT) [address] [place] [address] Eos Abs# 0.1 x10 Normal 0.0-0.4 [facility] Comment on above: Performed By: #### 7 353512, [id number], 9368140, [id number] #### [facility] (DEFAULT) [address] [place] [address] 29786 Eosinophils/100 WBC (Bld) 0.4 % Low 0.9-4.0 [facility] Comment on above: Performed By: #### 7 855162, [id number], 1589315, [id number] #### [facility] (DEFAULT) [address] [place] [address] 47378 Lymph Abs# 0.8 x10 Low 1.3-2.9 [facility] Comment on above: Performed By: #### 7 075670, [id number], 3276345, 96958615 #### [facility] (DEFAULT) [address] [place] [address] 75899 Lymphocytes/100 WBC (Bld) 4 % Low 14-48 [facility] Comment on above: Performed By: #### 7 068014, [id number], 7852555, [id number] #### [facility] (DEFAULT) [address] [place] [address] Story Abs# 1.0 x10 High 0.0-0.8 [facility] Comment on above: Performed By: #### 7 461900, [id number], 1122614, [id number] #### [facility] (DEFAULT) [address] [place] [address] Neut Abs# 15.6 x10 High 1.5-9.2 [facility] Comment on above: Performed By: #### 7 086728, [id number], 8009471, 73342780 #### [facility] (DEFAULT) [address] [place] [address] Neutrophils/100 WBC (Bld) 90 % High 44-88 [facility] Comment on above: Performed By: #### 7 135721, [id number], 5170418, [id number] #### [facility] (DEFAULT) [address] [place] [address] .QC SARS-CoV-2 (COVID-19)/Fl u/RSV (GeneXpert)on 03-24-2021 Internal Control Pass Normal [facility] Comment on above: Order Comment: Order ed by Discern.[[email or web address]] Performed By: #### 7 034483, [id number], 4906103, [id number] #### [facility] (DEFAULT) [address] [place] [address] CBC w/ Auto Diffon Erythrocyte distribution width (RBC) [Ratio] 13.1 % Normal 11.5-15.0 [facility] Comment on above: Performed By: #### 7 305968, [id number], 4247273, 63992654 #### [facility] (DEFAULT) [address] [place] [address] Hematocrit (Bld) [Volume fraction] 47.2 % Normal 34.8-51.9 [facility] Comment on above: Performed By: #### 7 861584, [id number], 9410828, 65016332 #### [facility] (DEFAULT) [address] [place] [address] 28305 Hemoglobin (Bld) [Mass/Vol] 16.2 g/dL Normal 11.8-17.7 [facility] Comment on above: Performed By: #### 7 863462, [id number], 5569153, 29687783 #### [facility] (DEFAULT) [address] [place] [address] 16370 Instr WBC 17.4 x10 Invalid Interpretation Code [facility] Comment on above: Performed By: #### 7 539546, [id number], 1031003, [id number] #### [facility] (DEFAULT) [address] [place] [address] 62963 Man Diff? Auto Normal [facility] Comment on above: Performed By: #### 7 362163, [id number], 1405955, 37107792 #### [facility] (DEFAULT) [address] [place] [address] 56986 MCH (RBC) [Entitic mass] 28 pg Normal 24-34 [facility] Comment on above: Performed By: #### 7 811250, [id number], 8536459, [id number] #### [facility] (DEFAULT) [address] [place] [address] 59498 MCHC (RBC) [Mass/Vol] 34 g/dL Normal 26-37 [facility] Comment on above: Performed By: #### 7 139392, [id number], 9784101, 31235608 #### [facility] (DEFAULT) [address] [place] [address] 43214 MCV (RBC) [Entitic vol] 81 fL Normal 81-100 [facility] Comment on above: Performed By: #### 7 764740, [id number], 1150929, 99419274 #### [facility] (DEFAULT) [address] [place] [address] 68178 Platelet 314 x10 Normal 138-427 [facility] Comment on above: Performed By: #### 7 332347, [id number], 8251163, 94235334 #### [facility] (DEFAULT) [address] [place] [address] 11607 Platelet mean volume (Bld) [Entitic vol] 9.1 fL Normal 6.3-10.2 [facility] Comment on above: Performed By: #### 7 098586, [id number], 4190493, 82884985 #### [facility] (DEFAULT) [address] [place] [address] 42242 RBC 5.81 x10 High 3.70-5.30 [facility] Comment on above: Performed By: #### 7 413738, [id number], 9248561, 65561699 #### [facility] (DEFAULT) [address] [place] [address] 57626 WBC 17.4 x10 High 3.5-10.5 [facility] Comment on above: Result Comment: Slid e Reviewed Performed By: #### 7 357468, [id number], 6986106, 97178291 #### [facility] (DEFAULT) [address] [place] [address]37 [facility] Standardon 03-24-2021 eGFR Non AA >60 Invalid Interpretation Code [facility] Comment on above: Performed By: #### 7 475448, [id number], 8425435, 27510684 #### [facility] (DEFAULT) [address] [place] [address] 91765 eGFR AA >60 Invalid Interpretation Code [facility] Comment on above: Result Comment: [employer] Supervisor trish Kidney disease could be indicated at eGFRs of less than 60 ml/min/1.73m2. Kidney Failure is indicated at less than 15 ml/min/1.73m2 Performed By: #### 7 201671, [id number], 3743260, 60957956 #### [facility] (DEFAULT) [address] [place] [address] 35949 Albumin [Mass/Vol] 4.6 g/dL Normal 3.5-5.0 [facility] Comment on above: Performed By: #### 7 824996, [id number], 9708078, 65333423 #### [facility] (DEFAULT) [address] [place] [address] 17228 Albumin/Globulin [Mass ratio] 1.3 {ratio} Low 1.4-2.6 [facility] Comment on above: Performed By: #### 7 924592, [id number], 0331566, 32343567 #### [facility] (DEFAULT) [address] [place] [address] 24983 Alk Phos 84 IU/L Normal 32-91 [facility] Comment on above: Performed By: #### 7 192482, [id number], 9916514, 74594936 #### [facility] (DEFAULT) [address] [place] [address] 84542 ALT [Catalytic activity/Vol] 42.0 U/L Normal 17.0-63.0 [facility] Comment on above: Performed By: #### 7 656948, [id number], 2762968, 01627355 #### [facility] (DEFAULT) [address] [place] [address] 01492 Anion gap [Moles/Vol] 14.0 mmol/L Normal 5.0-19.0 [facility] Comment on above: Performed By: #### 7 676871, [id number], 5838510, 73146963 #### [facility] (DEFAULT) [address] [place] [address] 61781 AST [Catalytic activity/Vol] 32 U/L Normal 15-41 [facility] Comment on above: Performed By: #### 7 631686, [id number], 2352327, 74655999 #### [facility] (DEFAULT) [address] [place] [address] 72532 Bili Total 1.2 mg/dL Normal 0.3-1.2 [facility] Comment on above: Performed By: #### 7 195345, [id number], 1552342, 63852634 #### [facility] (DEFAULT) [address] [place] [address] 76487 Calcium [Mass/Vol] 9.3 mg/dL Normal 8.9-10.3 [facility] Comment on above: Performed By: #### 7 615085, [id number], 4571004, 42076198 #### [facility] (DEFAULT) [address] [place] [address] 54214 Chloride [Moles/Vol] 92 mmol/L Low 101-111 [facility] Comment on above: Performed By: #### 7 103828, [id number], 1099423, 57157098 #### [facility] (DEFAULT) [address] [place] [address] 04518 CO2 [Moles/Vol] 31 mmol/L Normal 21-32 [facility] Comment on above: Performed By: #### 7 376202, [id number], 9423173, 25715568 #### [facility] (DEFAULT) [address] [place] [address] 93633 Creatinine [Mass/Vol] 0.68 mg/dL Low 0.90-1.30 [facility] Comment on above: Performed By: #### 7 985967, [id number], 5062678, 78958379 #### [facility] (DEFAULT) [address] [place] [address] 79820 Globulin (S) [Mass/Vol] 3.5 g/dL Normal 1.5-4.3 [facility] Comment on above: Performed By: #### 7 792890, [id number], 0570269, 48676340 #### [facility] (DEFAULT) [address] [place] [address] 06089 Glucose [Mass/Vol] 106.0 mg/dL Normal 74.0-118.0 [facility] Comment on above: Performed By: #### 7 578586, [id number], 2674532, 60635102 #### [facility] (DEFAULT) [address] [place] [address] 14671 Osmolality 268 mOsm/L Invalid Interpretation Code [facility] Comment on above: Performed By: #### 7 818749, [id number], 2567702, 15596262 #### [facility] (DEFAULT) [address] [place] [address] 33034 Potassium [Moles/Vol] 3.0 mmol/L Low 3.6-5.1 [facility] Comment on above: Performed By: #### 7 514753, [id number], 2138011, 74898497 #### [facility] (DEFAULT) [address] [place] [address] 30505 Protein [Mass/Vol] 8.1 g/dL Normal 6.5-8.1 [facility] Comment on above: Performed By: #### 7 657906, [id number], 5445893, 11851170 #### [facility] (DEFAULT) [address] [place] [address] 27982 Sodium [Moles/Vol] 134.0 mmol/L Low 136.0-144.0 [facility] Comment on above: Performed By: #### 7 896146, [id number], 3011829, 49712328 #### [facility] (DEFAULT) [address] [place] [address] 63555 Urea nitrogen [Mass/Vol] 11 mg/dL Normal 8-26 [facility] Comment on above: Performed By: #### 7 299038, [id number], 0763982, 95532865 #### [facility] (DEFAULT) [address] [place] [address] 79849 Urea nitrogen/Creatinine [Mass ratio] 16.0 mg/mg Normal 4.6-16.2 [facility] Comment on above: Performed By: #### 7 974573, [id number], 2112767, 10936508 #### [facility] (DEFAULT) [address] [place] [address] 84535 Magnesiumon 03-24-2021 Magnesium [Mass/Vol] 1.07 mg/dL Low 1.80-2.50 [facility] Comment on above: Performed By: #### 7 995161, [id number], 2654403, 13971113 #### [facility] (DEFAULT) [address] [place] [address] 27224 BASIC METABOLIC PANELon -3 Calcium 10.4 mg/dL High 8.6-10.3 [facility] Comment on above: Performed By: #### 1 0070, 24498 ####[facility] [facility] [place] [address], [facility] Chloride 99 mmol/L Normal 98-107 [facility] Comment on above: Performed By: #### 1 0070, 99462 ####[facility] [facility] [place] [address], [facility] CO2 29 mmol/L Normal 21-31 [facility] Comment on above: Performed By: #### 1 69, 48033 ####[facility] [place] [address], [facility] Creatinine 0.82 mg/dL Normal 0.70-1.30 [facility] Comment on above: Performed By: #### 1 69, 06972 ####[facility] [place] [address], [facility] eGFR (black) mL/min/{1.73_m2} Normal >60 [facility] Comment on above: Performed By: #### 1 69, 72988 ####[facility] [place] [address], [facility] eGFR (non-black) mL/min/{1.73_m2} Normal >60 [facility] Comment on above: Performed By: #### 1 69, 74075 ####[facility] [place] [address], [facility] Glucose mass conc 84 mg/dL Normal 70-100 [facility] Comment on above: Performed By: #### 1 69, 18208 ####[facility] [place] [address], [facility] Potassium molar conc 4.5 mmol/L Normal 3.5-5.1 [facility] Comment on above: Performed By: #### 1 69, 61619 ####[facility] [place] [address], [facility] Sodium 136 mmol/L Normal 136-145 [facility] Comment on above: Performed By: #### 1 69, 66165 ####[facility] [place] [address], [facility] Urea nitrogen 14 mg/dL Normal 7-25 [facility] Comment on above: Performed By: #### 1 0070, 07083 ####[facility] [facility].[address] MAGNESIUM BLOODon 06-07-2017 Magnesium 1.6 mg/dL Low 1.9-2.7 [facility] Comment on above: Performed By: #### 1 0070, 03130 ####[facility] Vital Signs Date Time Vital Sign Value Performing Clinician Faci lity 06-16-2023 15:56-0500 Body height 172.7 cm Shaikh Kim CALL Work Phone: [facility] 06-16-2023 15:56-0500 Body mass index (BMI) [Ratio] 35.73 kg/m2 Shaikh Kim CALL Work Phone: [facility] 06-16-2023 15:56-0500 Body temperature 97.9 [degF] Shaikh Kim CALL Work Phone: [facility] 06-16-2023 15:56-0500 Body weight 106.59 kg Shaikh Kim CALL Work Phone: [facility] 06-16-2023 15:56-0500 Diastolic blood pressure 76 mm[Hg] Shaikh Kim CALL Work Phone: [facility] 06-16-2023 15:56-0500 Heart rate 72 /min Shaikh Kim CALL Work Phone: [facility] 06-16-2023 15:56-0500 SaO2% (BldA) [Mass fraction] 96 % Shaikh Kim CALL Work Phone: [facility] 06-16-2023 15:56-0500 Systolic blood pressure 110 mm[Hg] Shaikh Kim CALL Work Phone: [facility] 11-25-2022 15:40-0400 Body height 175.26 cm Marcelino Andra Other [facility] Other 11-25-2022 15:40-0400 Body mass index (BMI) [Ratio] 34.23 kg/m2 Marcelino Andra Other [facility] Other 11-25-2022 15:40-0400 Body temperature 98 [degF] Marcelino Andra Other [facility] Other 11-25-2022 15:40-0400 Body weight 105.14 kg Marcelino Andra Other [facility] Other 11-25-2022 15:40-0400 Diastolic blood pressure 81 mm[Hg] Marcelino Andra Other [facility] Other 11-25-2022 15:40-0400 Respiratory rate 18 /min Marcelino Andra Other [facility] Other 11-25-2022 15:40-0400 SaO2% (BldA) [Mass fraction] 98 % Marcelino Andra Other [facility] Other 11-25-2022 15:40-0400 Systolic blood pressure 134 mm[Hg] Marcelino Andra Other [facility] Other 12-02-2021 09:05-0400 Diastolic blood pressure 88 mm[Hg] Provider AMAProvider Work Phone: [facility] Work Phone: 12-02-2021 09:05-0400 Systolic blood pressure 118 mm[Hg] Provider AMAProvider Work Phone: [facility] Work Phone: 12-02-2021 09:04-0400 Body height 177.8 cm Provider AMAProvider Work Phone: [phone] [place] [address] Work Phone: 12-02-2021 09:04-0400 Body mass index (BMI) [Ratio] 31.14 kg/m2 Provider AMAProvider Work Phone: [phone] [place] [address] Work Phone: 12-02-2021 09:04-0400 Body surface area Derived from formula 2.16 m2 Provider AMAProvider Work Phone: [phone] [place] [address] Work Phone: 12-02-2021 09:04-0400 Body weight 98.43 kg Provider AMAProvider Work Phone: [phone] [place] [address] Work Phone: 12-02-2021 09:04-0400 Diastolic blood pressure 86 mm[Hg] Provider AMAProvider Work Phone: [phone] [place] [address] Work Phone: 12-02-2021 09:04-0400 Heart rate 66 /min Provider AMAProvider Work Phone: [phone] [place] [address] Work Phone: 12-02-2021 09:04-0400 Systolic blood pressure 122 mm[Hg] Provider AMAProvider Work Phone: [phone] [place] [address] Work Phone: 03-25-2021 12:20-0500 Body height 175.26 cm Marcelino Andra Other [facility] Other 03-25-2021 12:20-0500 Body mass index (BMI) [Ratio] 30.59 kg/m2 Marcelino Andra Other [facility] Other 03-25-2021 12:20-0500 Body temperature 99.1 [degF] Marcelino Andra Other [facility] Other 03-25-2021 12:20-0500 Body weight 93.99 kg Marcelino Andra Other [facility] Other 03-25-2021 12:20-0500 Diastolic blood pressure 82 mm[Hg] Marcelino Andra Other [facility] Other 03-25-2021 12:20-0500 Respiratory rate 18 /min Marcelino Andra Other [facility] Other 03-25-2021 12:20-0500 SaO2% (BldA) [Mass fraction] 96 % Marcelino Andra Other [facility] Other 03-25-2021 12:20-0500 Systolic blood pressure 125 mm[Hg] Marcelino Andra Other [facility] Other Encounters Encounter Date Encounter Type Care Provider Facility Start: 06-30-2023 End: 06-30-2023 ambulatory OSVALDO LEE Not Available Start: 06-28-2023 End: 06-28-2023 ambulatory FRANCE REINA Not Available Start: 06-22-2023 Orders Only Shaikh Kim CALL [...] 04-11-2023 End: 04-11-2023 ambulatory Imad Asaad Other [facility] Other Start: 04-11-2023 Encounter by vickey amaya Imkaren Asaad [facility] Start: 11-25-2022 End: 11-25-2022 ambulatory Marcelino Andra Other [facility] Other Start: 11-25-2022 Office outpatient visit 15 minutes Marcelino Andra [facility] Start: 11-25-2022 Telephone encounter Marcelino Andra [facility] Start: 08-27-2022 End: 08-27-2022 ambulatory Marcelino Andra Other [facility] Other Start: 08-27-2022 Telephone encounter Marcelino Andra [facility] Start: 06-23-2022 End: 06-24-2022 ambulatory SHAIKH Sawyer ALVAREZ Facility:[facility] Start: 01-27-2022 End: 01-28-2022 ambulatory NIDA CHUCK Facility:[facility] Start: 12-02-2021 Office outpatient ne w 45 minutes Provider AMAProvider Work Phone: [facility] Work Phone: Start: 11-16-2021 End: 11-17-2021 ambulatory MARCELINO ANDRA Facility:[facility] Start: 11-12-2021 End: 11-13-2021 ambulatory MARCELINO ANDRA Facility:[facility] Start: 11-11-2021 End: 11-12-2021 ambulatory MARCELINO ANDRA [facility] Other Start: 11-11-2021 Telephone encounter Marcelino Andra [facility] Start: 11-10-2021 End: 11-10-2021 ambulatory Marcelino Andra Other [facility] Other Start: 11-10-2021 Telephone encounter Marcelino Andra [facility] [place] Start: 11-08-2021 End: 11-09-2021 ambulatory NIDA CHUCK Facility:[facility] Start: 10-13-2021 End: 10-13-2021 ambulatory NIDA CHUCK Facility:[facility] Start: 10-13-2021 End: 10-13-2021 ambulatory Nida A Chuck Facility:[facility] Start: 09-23-2021 ambulatory MARCELINO ANDRA Facility:[facility] Start: 06-25-2021 End: 07-03-2021 ambulatory Nida A Chuck Facility:[facility] Start: 03-25-2021 End: 03-25-2021 ambulatory Marcelino Andra Other [facility] Other Start: 03-25-2021 Office outpatient visit 15 minutes Marcelino Andra [facility] Start: 03-24-2021 End: 04-07-2021 ambulatory Nida A [facility] [employer] Other Start: 03-24-2021 Telephone encounter Marcelino Andra [facility] Medical Officer Psychiatry Start: 07-22-2017 End: 07-23-2017 Ambulatory MARBELLA MAVERICK Facility:[facility] Start: 06-07-2017 End: 06-08-2017 Ambulatory OSIYEMI OSINOWO Facility:[facility] Procedures Date Procedure Procedure Detail Performing Clinician NEGATED: Highlighted row has not occurred! Total colonoscopy Provider Maame Work Phone: Plan of Treatment Date Care Activity Detail Author Start: 06-27-2023 End: 06-27-2023 Patient encounter procedure 06/27/2023 9:45 AM EST Office Visit [facility] [address] [place] [address] Shaikh Alvarez MD [address] [place] [address] [facility] Start: 06-23-2023 End: 06-23-2023 ambulatory 06/23/2023 1:00 PM EST Evaluation [facility] [address] [facility] [address] [place] [address] France Reina, PT [address] [facility] [address] [place] [address] [facility] Start: 06-16-2023 End: 06-16-2024 MR Shoulder - right WO contrast MR shoulder right wo IV contrast Imaging Routine Acute pain of right shoulder Expected: 06/16/2023, Expires: 06/16/2024 [facility] Work Phone: Comment on above: Expected: 06/16/2023 , Expires: 06/16/2024 Start: 01-07-2023 Influenza vaccination Influenza Vacc ine (#1) [facility] Start: 01-05-2022 STRESS NUC, Provider : FRANCISCO HHVI NUCLEAR 01,[id number], Status: Pen, Time: 12:00 PM STRESS NUC, Provider: FRANCISCO HHVI NUCLEAR 01,[id number], Status: Pen, Time: 12:00 PM [facility] Work Phone: Start: 01-05-2022 ECHO, Provider: FRANCISCO MASONI ULTRASOUND 01,[id number], Status: Pen, Time: 9:45 AM ECHO, Provider: FRANCISCO HHVI ULTRASOUND 01,[id number], Status: Pen, Time: 9:45 AM [facility] Work Phone: Immunizations Immunization Date Immunization Notes Care Provider Fa cility 10-04-2020 Pfizer-BioNTech COVID-19 Vacc 30 MCG/0.3ML Intramuscular Suspension Provider AMAProvider Work Phone: [facility] Work Phone: 09-07-2020 Pfizer-BioNTech COVID-19 Vacc 30 MCG/0.3ML Intramuscular Suspension Provider AMAProvider Work Phone: [facility] Work Phone: 12-14-2000 diphtheria, tetanus toxoids and acellular pertussis vaccine, unspecified formulation Provider AMAProvider Work Phone: [facility] Work Phone: 12-14-2000 measles, mumps and rubella virus vaccine Provider AMAProvider Work Phone: [facility] Work Phone: 12-14-2000 poliovirus vaccine, inactivated Provider AMAProvider Work Phone: [phone] [place] [address] Work Phone: 02-06-1997 diphtheria, tetanus toxoids and acellular pertussis vaccine, unspecified formulation Provider AMAProvider Work Phone: [phone] [place] [address] Work Phone: 02-06-1997 haemophilus influenz ae type b vaccine, conjugate unspecified formulation Provider AMAProvider Work Phone: [phone] [place] [address] Work Phone: 02-06-1997 measles, mumps and rubella virus vaccine Provider AMAProvider Work Phone: [phone] [place] [address] Work Phone: 10-08-1996 diphtheria, tetanus toxoids and acellular pertussis vaccine, unspecified formulation Provider AMAProvider Work Phone: [phone] [place] [address] Work Phone: 10-08-1996 haemophilus influenz ae type b vaccine, conjugate unspecified formulation Provider [facility]MAProvider Work Phone: [phone] [place] [address] Work Phone: 10-08-1996 hepatitis B vaccine, pediatric or pediatric/adolescent dosage Provider AMAProvider Work Phone: [phone] [place] [address] Work Phone: 10-08-1996 trivalent poliovirus vaccine, live, oral Provider [facility]Provider Work Phone: [phone] [place] [address] Work Phone: 04-02-1996 DTP-Haemophilus influenzae type b conjugate vaccine Provider [facility]Provider Work Phone: [phone] [place] [address] Work Phone: 04-02-1996 trivalent poliovirus vaccine, live, oral Provider [facility]Provider Work Phone: [phone] [place] [address] Work Phone: 1995 DTP-Haemophilus influenzae type b conjugate vaccine Provider [facility]Provider Work Phone: [phone] [address] Work Phone: 1995 hepatitis B vaccine, pediatric or pediatric/adolescent dosage Provider AMAProvider Work Phone: [phone] [address] Work Phone: 1995 trivalent poliovirus vaccine, live, oral Provider AMAProvider Work Phone: [facility] Work Phone: 1995 hepatitis B vaccine, pediatric or pediatric/adolescent dosage Provider AMAProvider Work Phone: [facility] Work Phone: Payers Date Payer Category Payer Private Health Insurance [facility] [id number] 2023-Present [address] [place] [address] [id number] 2023 Private Health Insurance [facility] [id number] 2021 Unknown [id number] 2.16.840.1.201827.19 1995 Unknown [id number] 2.16.840.1.857947.3.579. 2.718 1995 Unknown [id number] 2.16.840.1.401848.3.579. 2.718 1995 Unknown [id number] 2.16.840.1.524171.3.579. 2.718 1995 Unknown [id number] 2.16.840.1.104572.3.579. 2.718 1995 Unknown [id number] 2.16.840.1.438309.3.579. 2.593 1995 Unknown [id number] 2.16.840.1.029690.3.579. 2.593 1995 Unknown [id number] 2.16.840.1.081175.3.579. 2.593 1995 Unknown [id number] 2.16.840.1.115892.3.579. 2.593 1995 Unknown [id number] 2.16.840.1.419590.3.579. 2.593 1995 Unknown [id number] 2.16.840.1.356887.3.579. 2.593 1995 Unknown [id number] 2.16.840.1.274749.3.579. 2.593 1995 Unknown [id number] 2.16.840.1.262842.3.579. 2.593 1995 Unknown [id number] 2.16.840.1.396514.3.579. 2.1259 1995 Unknown [id number] 2.16.840.1.060563.3.579. 2.1259 1995 Unknown [id number] 2.16.840.1.189221.3.579. 2.1259 1959 Private Health Insurance [id number] 1959 Private Health Insurance [id number] 1959 Self-pay [id number] 1959 Unknown [id number] Private Health Insurance [facility] [id number] 2.16.840.1.641576.19 Unknown [id number] Unknown COMMERCIAL Social History Date Type Detail Facility Unknown if ever smoked [facility] Other Start: 06-16-2023 Sex Assigned At [facility] Other Start: 06-16-2023 No illicit drug use No illicit drug use [facility] Work Phone: Comment on above: 1 can of pop daily.; Start: 06-16-2023 Tobacco smoking status NHIS Never smoked tobacco [facility] Start: 06-16-2023 End: 06-20-2023 Alcohol intake Lifetime non-drinker (finding) [facility] Start: 1995 Sex Assigned At Not on file [facility] NEGATED: Highlighted rowStart: NINF History of tobacco use Passive smoker [facility] Clinical Notes 03-25-2021 to 06-16-2023 Shaikh Kim MD - 06/16/2023 4:38 PM Julianne Alvarez MD - 06/16/2023 3:45 PM EST [...] weeks (around 06/30/2023). documented in this encounter [facility] 11-25-2022 Evaluation note Encounter Date Diagnosis [...] the Gitelman syndrome. Continue oral magnesium supplement. [facility] Other 04-21-2023 Evaluation note* Encounter Date Diagnosis Assessment Notes Treatment Notes Treatment Clinical Notes Aug, Hypomagnesemia (ICD-10 - E83.42) Aug, Hypokalemia (ICD-10 - E87.6) [facility] Other 07-06-2022 Evaluation note* Encounter Date Diagnosis Assessment Notes Treatment Notes Treatment Clinical Notes Nov, Leukocytosis (ICD-10 - D72.829) Nov, Hypomagnesemia (ICD-10 - E83.42) Nov, Hypokalemia (ICD-10 - E87.6) [facility] Other 07-04-2022 Chief complaint Narrative - Reported* [...] or ischemic defects and follow-up as needed [facility] Work Phone: [phone] 229-291807-04-2022 Chief complaint Narrative - Reported* WOOD HORN [...] or ischemic defects and follow-up as needed [facility] Work Phone: [phone] 600-286811-17-2021 Evaluation note* Encounter Date Diagnosis Assessment Notes [...] weeks to make sure it is resolved. [facility] Other Evaluation noteNo InformationNomercy [facility] [employer] Other Evaluation note* Diagnosis Acute pain of right shoulder- Primary documented in this encounter [facility] HealthcareEvaluation note* Diagnosis Infraspinatus strain, right, subsequent encounter- Primary [facility] N[facility] - [facility]ortedN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 Hospitalization History low potassium 2013 Hospitalization History low potassium 2018 Hospitalization History low potassium 2018 [facility] Other Reason for referral (narrative)* Consultation (Routine) - Pending Review Specialty Diagnoses / Procedures Referred By Sonny peters Referred To Contact Orthopaedic Surgery Diagnoses Infraspinatus strain, right, subsequent encounter Shaikh Alvarez MD [address] [place] [address] Rey Cruz MD [address] [place] [address] Referral ID Status Reason Start Date Expiration Date Visits Requested Visits Authorized [id number] Pending Review Specialty Services Required 06/22/2023 12/19/2023 1 1 [facility] Healthcare Summary Purpose Family History No Family History Records FoundUnknown Family Member Name Dates Details No pertinent family history: Mother, Father, Sister, Brother(V49.89, Z78.9) Status:Active Unknown Family Member Name Dates Details No pertinent family history: Mother, Father, Sister, Brother(V49.89, Z78.9) Status:Active Advance Directives No Advanced Directives Records FoundNo Advanced Directives Records FoundNo Advanced Directives Records FoundNo Advanced Directives Records FoundNo Advanced Directives Records Found Reason for Referral Specialty Diagnoses / Procedures Referred By Contac t Referred To Contact Diagnoses Acute pain of right shoulder Procedures MR shoulder right wo IV contrast Shaikh Alvarez MD [address] [place] [address] [facility] [address] [place] [address] Phone: [phone] Referral ID Status Reason Start Date Expiration Date V isits Requested Visits Authorized [id number] Pending Review 06/16/2023 12/13/2023 1 1 Specialty Diagnoses / Procedures Referred By Contac t Referred To Contact Physical Therapy Diagnoses Acute pain of right shoulder Procedures NE OFFICE/OUTPATIENT NEW HIGH MDM 60 MINUTES Shaikh Alvarez MD [address] [place] [address] France Reina, PT [address] [address] Referral ID Status Reason Start Date Expiration Date Visits Requested Visits Authorized [id number] Pending Review Consult and Treat 06/16/2023 12/13/2023 1 1 Additional Source Comments (unrecognized sect ion and content) No Status Records FoundNo Status Records FoundNo Status Records FoundNo Status Records FoundNo Status Records Found INFORMATION SOURCE (unrecogn ized section and content) DATE CREATED AUTHOR 10/28/2017 [facility] DATE CREATED AUTHOR AUTHOR'S ORGANIZ ATION 12/05/2021 [employer] DATE CREATED AUTHOR AUTHOR'S ORGANIZ ATION 02/07/2022 [facility] DATE CREATED AUTHOR AUTHOR'S ORGANIZ ATION 06/28/2022 [facility] DATE CREATED AUTHOR AUTHOR'S ORGANIZ ATION 07/05/2023 [facility] dical Specialists EPIC REASON FOR VISIT (unrecogniz ed section and content) Reason Comments Shoulder Pain RIGHT Care Teams (unrecognized sec tion and content) House Coordinator Relationship Specialty Start Date End Date Shaikh Alvarez MD [address] [place] [address] PCP - General Internal Medicine 06/16/23 House Coordinator Relationship Specialty Start Date End Date Shaikh Alvarez MD [address] [place] [address] PCP - General Internal Medicine 06/16/23 FOR [...] BE BASED ON THE PRIMARY CLINICAL RECORDS. [employer] provides no warranty or guarantee of the accuracy or completeness of information in this document.
[2023-07-06 13:23] LABS: Albumin Level 3.4 g/dL (3.4-5.0); Anion Gap 10.1; BUN Creatinine Ratio 11.8; Carbon Dioxide 35.1 mmol/L (21.0-32.0); Chloride 97 mmol/L (98-107); Estimated GFR (African America >60 (>=60); Estimated GFR (Non-African Ame >60 (>=60); Glucose 109 mg/dL (74-106); Magnesium 1.2 mg/dL (1.8-2.4); Phosphorus 2.8 mg/dL (2.6-4.7); Potassium 3.2 mmol/L (3.5-5.1); Sodium 139 mmol/L (136-145)
== END 2023-07-06 10:27 | disposition home or self-care (01) ==
LOC: LAB 10:27
PROVIDERS: PCP Internal Medicine; Visit Provider Internal Medicine
DX: E87.6 Hypokalemia (principal); E83.42 Hypomagnesemia
CPT/HCPCS: 36415; 80069; 83735

== ENCOUNTER 2023-08-31 16:19 | Outpatient (OUT) | payer OTHER, SELFPAY ==
--- OUTSIDE RECORDS SUMMARY | 2023-08-31 16:34 | XMS_ITS | CCD ---
Demographics [address] [address] Preferred Language en Marital Status Muslim Affiliation Unknown Race White Ethnic Group Not or Lati no Author Organization [facility] Care Team Providers Care Waste Oil Pumper Name Role Phone OSINOWO, OSIYEMI Unavailable Unavailable OSINOWO, OSIYEMI Unavailable Unavailable NADAUD, ESTUARDO Unavailable Unavailable NADAUD, ESTUARDO Unavailable Unavailable MAVERICK, MARBELLA Unavailable Unavailable MAVERICK, MARBELLA Unavailable Unavailable DAQUAN, GRICEL Unavailable Unavailable DAQUAN, GRICEL Unavailable Unavailable Andra, Marcelino Unavailable Unavailable Unavailable Chuck, Nida A Admitting Unavailable Chuck, Nida A Attending Unavailable Chuck WORKERS COMPENSATION CLAIMS EXAMINER-C, Nida A Primary Care Unavailable Chuck, Nida A Attending Unavailable Chuck WORKERS COMPENSATION CLAIMS EXAMINER-C, Nida A Primary Care Unavailable Chuck, Nida A Admitting Unavailable Chuck, Nida A Attending Unavailable Chuck WORKERS COMPENSATION CLAIMS EXAMINER-C, Nida A Primary Care Unavailable Chuck, Nida A Attending Unavailable Chuck, Nida A Admitting Unavailable Chuck WORKERS COMPENSATION CLAIMS EXAMINER-C, Nida A Primary Care Unavailable ANDRA, MARCELINO Admitting Unavailable ANDRA, MARCELINO Attending Unavailable CHUCK, NIDA Primary Care Unavailable ANDRA, MARCELINO Consulting Unavailable FAWWAD, VELASQUEZ H Admitting Unavailable FAWWAD, VELASQUEZ H Attending Unavailable FAWWAD, VELASQUEZ H Primary Care Unavailable FAWWAD, VELASQUEZ H Consulting Unavailable ANDRA, MARCELINO Admitting Unavailable ANDRA, MARCELINO Attending Unavailable CHUCK, NIDA Primary Care Unavailable ANDRA, MARCELINO Consulting Unavailable ANDRA, MARCELINO Admitting Unavailable ANDRA, MARCELINO Attending Unavailable CHUCK, NIDA Primary Care Unavailable ANDRA, MARCELINO Consulting Unavailable CHUCK, NIDA Admitting Unavailable CHUCK, NIDA Attending Unavailable CHUCK, NIDA Primary Care Unavailable CHUCK, NIDA Consulting Unavailable CHUCK, NIDA Primary Care Unavailable BENSON, DR ESTUARDO Marquez Admitting Unavailable MARCELINO, DR ESTUARDO Marquez Attending Unavailable MARCELINO, DR ESTUARDO Marquez Consulting Unavailable CHUCK, NIDA Primary Care Unavailable SEBAS ., DR HALIMA Martell Admitting Unavailable MULLEN ., DR HALIMA Martell Attending Unavailable MINDY FAN Consulting Unavailable ZAYCYONIEL Consulting Unavailable ANDRA, MARCELINO Admitting Unavailable ANDRA, MARCELINO Attending Unavailable CHUCK, NIDA Primary Care Unavailable Asaad, Imad Unavailable Shaikh Alvarez MD Primary Care Provider [phone] MD Carlos Johnson Attending Provider MD Eva Alvarez Primary Care Provider [phone] JOSS ALVAREZIKH Attending Unavailable FRANCE REINA Attending Unavailable FAWWAD, VELASQUEZ Referring Unavailable BRINKOSVALDO Attending Unavailable FAWWAD, VELASQUEZ Referring Unavailable NASTONFRANCE Attending Unavailable FAWWAD, VELASQUEZ Referring Unavailable BRINKOSVALDO Attending Unavailable FAWWAD, VELASQUEZ Referring Unavailable BRINKOSVALDO Attending Unavailable FAWWAD, VELASQUEZ Referring Unavailable BRINK, OSVALDO Attending Unavailable FAWWAD, VELASQUEZ Referring Unavailable NASTONFRANCE Attending Unavailable FAWWAD, VELASQUEZ Referring Unavailable BLACKSTONFRANCE T Attending Unavailable FAWWAD, VELASQUEZ Referring Unavailable JEREMIAH MERRITT Attending Unavailable FAWWAD, VELASQUEZ Referring Unavailable BRINK, OSVALDO Attending Unavailable FAWWAD, VELASQUEZ Referring Unavailable Asaad, Imad Admitting Unavailable Fawwad, Velasquez Primary Care Unavailable Asaad, Imad Attending Unavailable Fawwad, Velasquez Primary Care Unavailable Asaad, Imad Attending Unavailable Asaad, Imad Admitting Unavailable Medications Current Medications Medication Drug Class(es) Dates Sig (Normalized) Sig (Original) aMILoride hydrochloride 5 mg oral tablet (16 sources) Potassium-sparin g Diuretic Start: 07-18-2023 take 10 mg by mouth twice daily Amiloride Active 10 MG PO Twice daily July 18, 2023 12:00am take 2 tablets by mouth in the m orning aMILoride (Midamor) 5 MG tablet Take 10 mg by mouth in the morning and 10 mg before bedtime. 0 Active take 2 tablets by [facility] every twelve hours magnesium chloride 535 mg delayed release oral tablet (5 sources) Start: 11-26-2022 take 2 tablets by mouth in the morning Slow Magnesium/Calcium 70-117 MG tablet delayed-release Take 2 tablets by mouth in the morning and 2 tablets before bedtime. 0 11/26/2022 Active Start: 12-25-2018 Slow Magnesium /Calcium 70-117 MG 2 Tablet twice daily Orally bid for 90 day(s) Dec, Active Start: 12-25-2018 magnesium oxide 400 mg oral capsule (4 sources) Start: 07-18-2023 take 800 mg by mouth twice daily Magnesium Oxide Active 800 MG PO Twice daily July 18, 2023 12:00am Magnesium Oxide 400 MG CAPS TAKE 2 CAPSULE Twice daily Quantity: 0 Refills: 0 Ordered: 02-Dec-2021 DO Active potassium chloride 20 meq extended release oral tablet (16 sources) Start: 07-18-2023 take 6 tablets by mouth twice daily Potassium Chloride Active 0 PO Twice daily July 18, 2023 12:00am 6 tablets orally twice daily; Start: 11-25-2022 potassium chlo ride CR (K-Tab) 20 MEQ ER tablet take 6 tablets by [facility] every twelve hours Potassium Chloride ER 20 MEQ 6 tablets Orally bid for 90 day(s) Active take 6 tablets by [facility] every twelve hours predniSONE 20 mg [...] Drug Class(es) Dates Sig (Normalized) Sig (Original) Toradol 30 mg/ml (7 sources) Start: 02-12-2020 Toradol 30 mg/ml Feb, 30 mg Triamcinolone (7 sources) Corticosteroid Start: 02-12-2020 KENALOG - 10 mg Feb, 40 mg Problems Active Problems Problem Classification Problem Date Documented Da te Episodic/Chronic Abdominal pain (8 sources) Abdominal pain; Translations: [Unspecified abdominal pain] Onset: 07-23-2023 07-18-2023 Episodic Diseases of white blood cells (16 [...] FUNCTION] Onset: 06-07-2017 Chronic Other gastrointestinal disorders (4 sources) Diarrhea; Translations: [Diarrhea, unspecified] 07-18-2023 Episodic Other gastrointestinal disorders (1 source) Diarrhea, unspecified; Translations: [Diarrhea, unspecified] Onset: 07-23-2023 Episodic Other liver diseases (2 sources) Raised [...] 11-08-2021 Episodic Other aftercare (1 source) Other termite control representative (current) drug therapy; Translations: [OT CUSTODIAL CURRENT DRUG THERAPY] Onset: 10-14-2021 Episodic Other [...] [PROC AND TX NOT CARRIED OUT PT OT RSN] Onset: 11-11-2021 Episodic Skin and subcutaneous tissue infections (4 sources) Pilonidal cyst without abscess; Translations: [PILONIDAL CYST WITHOUT ABSCESS] Onset: 10-13-2021 Episodic Unclassified (2 sources) Never smoked tobacco; Translations: [Never a smoker] Results Test Name Value Interpretation Reference Range Facility Arterial blood standard base excess determination by calculationOrdered By: Imad Asaad on 08-18-2023 Base excess standard Calc (BldA) [Moles/Vol] 9 mmol/L -2-3 [facility] Basophil percentageOrdered B y: Imad Asaad on 08-18-2023 Basophil percentage 46.3 mm[Hg] 35-51 [facility] Basophil percentage 36 mm[Hg] 80-105 [facility] Blood carbon dioxide, total measurement by calculation (moles/volume)Ordered By: Imad Asaad on 08-18-2023 CO2 Calc (Bld) [Moles/Vol] 34 mmol/L 23-29 [facility] CT biopsyOrdered By: Imad As aad on 08-18-2023 Hematocrit (Bld) [Volume fraction] 49.0 % 38.0-51.0 [facility] Glucose Glucometer (BldC) [M ass/Vol]Ordered By: Imad Asaad on 08-18-2023 Glucose [Mass/Vol] 95 mg/dL 70-105 [facility] Hemoglobin Calc (Bld) [Mass/ Vol]Ordered By: Imad Asaad on 08-18-2023 Hemoglobin (Bld) [Mass/Vol] 16.7 g/dL 12.0-17.0 [facility] ISTAT ABGon 08-18-2023 CO2 [Moles/Vol] 34 mmol/L High 23-29 [facility] Comment on above: Performed By: #### I SABG #### [facility] [address] [place] [address] Glucose [Mass/Vol] 95 mg/dL Normal 70-105 [facility] Comment on above: Result Comment: PERF ORMED BY: [place] [address] PATHOLOGIST MOTOR BUILDER ASSEMBLER LIEN TAN M.D. Performed By: #### I SABG #### [facility] [address] [place] [address] HCO3 (Bld) [Moles/Vol] 32.9 mmol/L High 22.0-28.0 [facility] Comment on above: Performed By: #### I SABG #### [address] Hematocrit (Bld) [Volume fraction] 49.0 % Normal 38.0-51.0 [facility] Comment on above: Performed By: #### I SABG #### [address] Hemoglobin (Bld) [Mass/Vol] 16.7 g/dL Normal 12.0-17.0 [facility] Comment on above: Performed By: #### I SABG #### [address] ISTAT Base Excess 9 mmol/L High -2 TO 3 [facility] Comment on above: Performed By: #### I SABG #### [address] ISTAT Ionized Calcium 1.14 mol/L Normal 1.12-1.32 [facility] Comment on above: Performed By: #### I SABG #### [place] [address] [place] ISTAT PCO2 46.3 mm[Hg] Normal 35-51 [facility] Comment on above: Performed By: #### I SABG #### [place] [address] [place] ISTAT Ph 7.460 High 7.31-7.45 [facility] Comment on above: Performed By: #### I SABG #### [place] [address] [place] ISTAT PO2 36 mm[Hg] Low 80-105 [facility] Comment on above: Performed By: #### I SABG #### [address] Oxygen saturation in Blood 72 % Low 95-98 [facility] Comment on above: Result Comment: Refe rence ranges reflect baseline specimens only Performed By: #### I SABG #### [facility] [address] Potassium [Moles/Vol] 2.5 mmol/L Off scale low 3.5-4.9 [facility] Comment on above: Performed By: #### I SABG #### [facility] [address] Sodium [Moles/Vol] 139 mmol/L Normal 138-146 [facility] Comment on above: Performed By: #### I SABG #### [facility] [address] [place] [id number] [facility] Potassium (Bld) [Moles/Vol]O rdered By: Imad Asaad on 08-18-2023 Potassium [Moles/Vol] 2.5 mmol/L 3.5-4.9 [facility] Sodium (Bld) [Moles/Vol]Orde red By: Imad Asaad on 08-18-2023 Sodium [Moles/Vol] 139 mmol/L 138-146 [facility] Whole blood bicarbonate ryan urementOrdered By: Imad Asaad on 08-18-2023 HCO3 (Bld) [Moles/Vol] 32.9 mmol/L 22.0-28.0 [facility] Whole blood ionized calcium measurement (moles/volume)Ordered By: Imad Asaad on 08-18-2023 Calcium.ionized (Bld) [Moles/Vol] 1140 mmol/L 1.12-1.32 [facility] Whole blood oxygen saturatio n measurementOrdered By: Imad Asaad on 08-18-2023 Oxygen saturation in Blood 72 % 95-98 [facility] Comment on above: Reference ranges ref lect baseline specimens only Whole blood pHOrdered By: Im ad Asaad on 08-18-2023 pH (Bld) 7.460 Units 7.31-7.45 [facility] Alanine aminotransferase [En zymatic activity/volume] in Serum or PlasmaOrdered By: Imad Asaad on 07-23-2023 ALT [Catalytic activity/Vol] 30 U/L 7-52 [facility] Albumin [Mass/volume] in Ser um or Plasma by Bromocresol green (BCG) dye binding methoOrdered By: Imad Asaad on 07-23-2023 Albumin BCG dye [Mass/Vol] 4.4 g/dL 3.5-5.7 [facility] Alkaline phosphatase [Enzyma tic activity/volume] in Serum or PlasmaOrdered By: Imad Asaad on 07-23-2023 ALP [Catalytic activity/Vol] 87 U/L 34-104 [facility] Aspartate aminotransferase [ Enzymatic activity/volume] in Serum or PlasmaOrdered By: Imad Asaad on 07-23-2023 AST [Catalytic activity/Vol] 25 U/L 13-39 [facility] Basophils Auto (Bld) [#/Vol] Ordered By: Imad Asaad on 07-23-2023 Basophils (Bld) [#/Vol] 0.1 10*3/uL 0.0-0.2 [facility] Basophils/100 WBC Auto (Bld) Ordered By: Imad Asaad on 07-23-2023 Basophils/100 WBC (Bld) 0.7 % . [facility] Bilirubin.total [Mass/volume ] in Serum or PlasmaOrdered By: Imad Asaad on 07-23-2023 Bilirubin [Mass/Vol] 0.7 mg/dL 0.3-1.0 [facility] Calcium [Mass/volume] in Ser um or PlasmaOrdered By: Imad Asaad on 07-23-2023 Calcium [Mass/Vol] 9.2 mg/dL 8.6-10.3 [facility] Carbon dioxide, total [Moles /volume] in Serum or PlasmaOrdered By: Imad Asaad on 07-23-2023 CO2 [Moles/Vol] 34.0 mmol/L 21.0-31.0 [facility] Chloride [Moles/volume] in S joon or PlasmaOrdered By: Imad Asaad on 07-23-2023 Chloride [Moles/Vol] 98 mmol/L 98-107 [facility] Complete Blood Count Auto Di ffon 07-23-2023 Basophils (Bld) [#/Vol] 0.1 10*3/uL Normal 0.0-0.2 [facility] Comment on above: Result Comment: PERF ORMED BY: [place] [address] PATHOLOGIST [employer]ILDER ASSEMBLER LIEN TAN M.D. Performed By: #### C MP, CBC, LIPASE #### [address] Basophils/100 WBC (Bld) 0.7 % Normal . T gil [facility] Comment on above: Performed By: #### C MP, CBC, LIPASE #### [address] Eosinophils (Bld) [#/Vol] 0.4 10*3/uL Normal 0.0-0.45 [facility] Comment on above: Performed By: #### C MP, CBC, LIPASE #### [address] Eosinophils/100 WBC (Bld) 4.2 % Normal . [facility] Comment on above: Performed By: #### C MP, CBC, LIPASE #### [address] Erythrocyte distribution width (RBC) [Ratio] 14.0 % Normal 12.0-14.8 [facility] Comment on above: Performed By: #### C MP, CBC, LIPASE #### [address] Hematocrit (Bld) [Volume fraction] 43.7 % Normal 38.8-50.0 [facility] Comment on above: Performed By: #### C MP, CBC, LIPASE #### [address] Hemoglobin (Bld) [Mass/Vol] 15.1 g/dL Normal 13.0-17.0 [facility] Comment on above: Performed By: #### C MP, CBC, LIPASE #### [address] Lymphocytes (Bld) [#/Vol] 2.2 10*3/uL Normal 1.00-4.8 [facility] Comment on above: Performed By: #### C MP, CBC, LIPASE #### [address] Lymphocytes/100 WBC (Bld) 24.3 % Normal . [facility] Comment on above: Performed By: #### C MP, CBC, LIPASE #### [address] MCH (RBC) [Entitic mass] 27.7 pg Normal 27.5-35.2 [facility] Comment on above: Performed By: #### C MP, CBC, LIPASE #### [address] MCV (RBC) [Entitic vol] 80.1 fL Low 83.5-101 T gil [facility] Comment on above: Performed By: #### C MP, CBC, LIPASE #### [address] Mean Corpuscular HGB Conc 34.6 g/dL Normal 32.5-35.6 [facility] Comment on above: Performed By: #### C MP, CBC, LIPASE #### [address] Monocytes (Bld) [#/Vol] 0.6 10*3/uL Normal 0.0-0.8 [facility] Comment on above: Performed By: #### C MP, CBC, LIPASE #### [address] Monocytes/100 WBC (Bld) 6.9 % Normal . T gil [facility] Comment on above: Performed By: #### C MP, CBC, LIPASE #### [address] Neutrophils (Bld) [#/Vol] 5.8 10*3/uL Normal 1.8-7.7 [facility] Comment on above: Performed By: #### C MP, CBC, LIPASE #### [address] Neutrophils/100 WBC (Bld) 63.9 % Normal . [facility] Comment on above: Performed By: #### C MP, CBC, LIPASE #### [address] NRBC% 0.0 /100{WBC} Normal 0-0.5 [facility] Comment on above: Performed By: #### C MP, CBC, LIPASE #### [address] Platelet mean volume (Bld) [Entitic vol] 7.2 fL Normal 6.6-10.1 [facility] Comment on above: Performed By: #### C MP, CBC, LIPASE #### [address] Platelets (Bld) [#/Vol] 353 10*3/uL Normal 150-450 [facility] Comment on above: Performed By: #### C MP, CBC, LIPASE #### [address] RBC (Bld) [#/Vol] 5.46 10*6/uL Normal 3.90-5.60 [facility] Comment on above: Performed By: #### C MP, CBC, LIPASE #### [address] WBC (Bld) [#/Vol] 9.0 10*3/uL Normal 4.1-10.5 [facility] Comment on above: Performed By: #### C MP, CBC, LIPASE #### [address] Comprehensive Metabolic Pane radha 07-23-2023 Albumin [Mass/Vol] 4.4 g/dL Normal 3.5-5.7 [facility] Comment on above: Performed By: #### C MP, CBC, LIPASE #### [address] Albumin/Globulin [Mass ratio] 1.5 {ratio} Normal [facility] Comment on above: Performed By: #### C MP, CBC, LIPASE #### [address] ALP [Catalytic activity/Vol] 87 U/L Normal 34-104 [facility] Comment on above: Performed By: #### C MP, CBC, LIPASE #### [facility] [address] ALT [Catalytic activity/Vol] 30 U/L Normal 7-52 [facility] Comment on above: Performed By: #### C MP, CBC, LIPASE #### [facility] [address] Anion gap [Moles/Vol] 11.8 mmol/L Normal 6.0-15.0 Th e [facility] Comment on above: Performed By: #### C MP, CBC, LIPASE #### [facility] [address] AST [Catalytic activity/Vol] 25 U/L Normal 13-39 [facility] Comment on above: Performed By: #### C MP, CBC, LIPASE #### [address] Bilirubin [Mass/Vol] 0.7 mg/dL Normal 0.3-1.0 [facility] Comment on above: Performed By: #### C MP, CBC, LIPASE #### [place] [address] [place] Calcium [Mass/Vol] 9.2 mg/dL Normal 8.6-10.3 [facility] Comment on above: Performed By: #### C MP, CBC, LIPASE #### [place] [address] [place] Chloride [Moles/Vol] 98 mmol/L Normal 98-107 [facility] Comment on above: Performed By: #### C MP, CBC, LIPASE #### [facility] [address] [place] [address] [place] CO2 [Moles/Vol] 34.0 mmol/L High 21.0-31.[address] [facility] Comment on above: Performed By: #### C MP, CBC, LIPASE #### [address] Creatinine [Mass/Vol] 0.73 mg/dL Normal 0.70-1.30 [facility] Comment on above: Performed By: #### C MP, CBC, LIPASE #### [address] GFR/1.73 sq M.predicted MDRD (S/P/Bld) [Vol rate/Area] mL/min/{1.73_m2} Normal [facility] Comment on above: Performed By: #### C MP, CBC, LIPASE #### [address] Globulin (S) [Mass/Vol] 2.9 g/dL Normal T he [facility] Comment on above: Performed By: #### C MP, CBC, LIPASE #### [address] Glucose [Mass/Vol] 92 mg/dL Normal 70-100 [facility] Comment on above: Result Comment: [facility] Glucose Reference Range is dependent on time and content of last meal. Glucose of more than 200 mg/dL in a nonstressed, ambulatory subject supports the diagnosis of Diabetes Mellitus. ADA recommended reference range Performed By: #### C MP, CBC, LIPASE #### [address] Potassium [Moles/Vol] 2.8 mmol/L Off scale low 3.5-5.1 [facility] Comment on above: Result Comment: Crit ical Result Called to and read back by: HALIMA CHAVEZ at: 07/23/2023 11:41:15 by:[email or web address] Performed By: #### C MP, CBC, LIPASE #### [address] Protein [Mass/Vol] 7.3 g/dL Normal 6.4-8.9 [facility] Comment on above: Performed By: #### C MP, CBC, LIPASE #### [address] Sodium [Moles/Vol] 141 mmol/L Normal 136-145 [facility] Comment on above: Performed By: #### C MP, CBC, LIPASE #### [place] [id number] [place] Urea nitrogen [Mass/Vol] 13 mg/dL Normal 7-25 [facility] Comment on above: Performed By: #### C MP, CBC, LIPASE #### [facility] [address] Creatinine [Mass/volume] in Serum or PlasmaOrdered By: Imad Asaad on 07-23-2023 Creatinine [Mass/Vol] 0.73 mg/dL 0.70-1.30 [facility] Eosinophils Auto (Bld) [#/Vo l]Ordered By: Imad Asaad on 07-23-2023 Eosinophils (Bld) [#/Vol] 0.4 10*3/uL 0.0-0.45 [facility] Eosinophils/100 WBC Auto (Bl d)Ordered By: Imad Asaad on 07-23-2023 Eosinophils/100 WBC (Bld) 4.2 % . [facility] Erythrocyte distribution wid th Auto (RBC) [Ratio]Ordered By: Imad Asaad on 07-23-2023 Erythrocyte distribution width (RBC) [Ratio] 14.0 % 12.0-14.8 [facility] Globulin Calc (S) [Mass/Vol] Ordered By: Imad Asaad on 07-23-2023 Globulin (S) [Mass/Vol] 2.9 g/dL [facility] Glucose [Mass/volume] in Ser um or PlasmaOrdered By: Imad Asaad on 07-23-2023 Glucose [Mass/Vol] 92 mg/dL 70-100 [facility] Comment on above: ADA recommended refe rence rangeRandom Glucose Reference Range is dependent on time and content of last meal. Glucose of more than 200 mg/dL in a nonstressed, ambulatory subject supports the diagnosis of Diabetes Mellitus. Hematocrit Auto (Bld) [Volum e fraction]Ordered By: Imad Asaad on 07-23-2023 Hematocrit (Bld) [Volume fraction] 43.7 % 38.8-50.0 [facility] Hemoglobin [Mass/volume] in BloodOrdered By: Imad Asaad on 07-23-2023 Hemoglobin (Bld) [Mass/Vol] 15.1 g/dL 13.0-17.0 [facility] Leukocytes [#/volume] correc augusto for nucleated erythrocytes in Blood by Automated counOrdered By: Imad Asaad on 07-23-2023 WBC corrected for nucl RBC Auto (Bld) [#/Vol] 9.0 10*3/uL 4.1-10.5 [facility] Lipaseon 07-23-2023 Lipase [Catalytic activity/Vol] 39.0 U/L Normal 11.0-82.0 [facility] Comment on above: Result Comment: PERF ORMED BY: [facility] [address] [place] [address] PATHOLOGIST [employer] BUILDER ASSEMBLER LIEN TAN M.D. Performed By: #### C MP, CBC, LIPASE #### [address] Lipase [Enzymatic activity/v olume] in Serum or PlasmaOrdered By: Imad Asaad on 07-23-2023 Lipase [Catalytic activity/Vol] 39.0 U/L 11.0-82.0 [facility] Lymphocytes Auto (Bld) [#/Vo l]Ordered By: Imad Asaad on 07-23-2023 Lymphocytes (Bld) [#/Vol] 2.2 10*3/uL 1.00-4.8 [facility] Lymphocytes/100 WBC Auto (Bl d)Ordered By: Imad Asaad on 07-23-2023 Lymphocytes/100 WBC (Bld) 24.3 % . [facility] MCH Auto (RBC) [Entitic mass ]Ordered By: Imad Asaad on 07-23-2023 MCH (RBC) [Entitic mass] 27.7 pg 27.5-35.2 [facility] MCHC Auto (RBC) [Mass/Vol]Or dered By: Imad Asaad on 07-23-2023 MCHC (RBC) [Mass/Vol] 34.6 g/dL 32.5-35.6 [facility] MCV Auto (RBC) [Entitic vol] Ordered By: Imad Asaad on 07-23-2023 MCV (RBC) [Entitic vol] 80.1 fL 83.5-101 F [facility] Monocytes Auto (Bld) [#/Vol] Ordered By: Imad Asaad on 07-23-2023 Monocytes (Bld) [#/Vol] 0.6 10*3/uL 0.0-0.8 [facility] Monocytes/100 WBC Auto (Bld) Ordered By: Imad Asaad on 07-23-2023 Monocytes/100 WBC (Bld) 6.9 % . [facility] Neutrophils Auto (Bld) [#/Vo l]Ordered By: Imad Asaad on 07-23-2023 Neutrophils (Bld) [#/Vol] 5.8 10*3/uL 1.8-7.7 [facility] Neutrophils/100 WBC Auto (Bl d)Ordered By: Imad Asaad on 07-23-2023 Neutrophils/100 WBC (Bld) 63.9 % . [facility] No Panel InformationOrdered By: Imad Asaad on 07-23-2023 Estimated GFR (CKD-EPI) > 60.0 mL/Min [facility] Creatinine Clearance (Chem N/A [facility] Nucleated erythrocytes [Pres ence] in Blood by Automated countOrdered By: Imad Asaad on 07-23-2023 Nucleated RBC Auto Ql (Bld) 0.0 /100{WBC} 0-0.5 [facility] Platelet mean volume Auto (B ld) [Entitic vol]Ordered By: Imad Asaad on 07-23-2023 Platelet mean volume (Bld) [Entitic vol] 7.2 fL 6.6-10.1 [facility] Platelets Auto (Bld) [#/Vol] Ordered By: Imad Asaad on 07-23-2023 Platelets (Bld) [#/Vol] 353 10*3/uL 150-450 [facility] Potassium [Moles/volume] in Serum or PlasmaOrdered By: Imad Asaad on 07-23-2023 Potassium [Moles/Vol] 2.8 mmol/L 3.5-5.1 [facility] Comment on above: Critical Result Call ed to and read back by: HALIMA CHAVEZ at: 07/23/2023 11:41:15 by:[id number] Protein [Mass/volume] in Ser um or PlasmaOrdered By: Imad Asaad on 07-23-2023 Protein [Mass/Vol] 7.3 g/dL 6.4-8.9 [facility] RBC Auto (Bld) [#/Vol]Ordere d By: Imad Asaad on 07-23-2023 RBC (Bld) [#/Vol] 5.46 10*6/uL 3.90-5.60 [facility] Serum or plasma albumin/glob ulin mass ratioOrdered By: Imad Asaad on 07-23-2023 Albumin/Globulin [Mass ratio] 1.5 {ratio} [facility] Serum or plasma anion gap de terminationOrdered By: Imad Asaad on 07-23-2023 Anion gap [Moles/Vol] 11.8 mmol/L 6.0-15.0 [facility] Sodium [Moles/volume] in Ser um or PlasmaOrdered By: Imad Asaad on 07-23-2023 Sodium [Moles/Vol] 141 mmol/L 136-145 [facility] US abdomen completeon 2023 US abdomen complete [facility] [place] [address] Ultrasound Report Signed Patient: Wood Horn MR#: [id number] : 1995 Acct:[id number] Age/Sex: 27 / M ADM Date: 07/23/23 Loc: Room: Type: [facility] Attending Dr: Carlos Johnson MD Ordering Provider: Carlos Johnson MD Date of Service: 07/23/23 US/US abdomen complete: R19.7 - Diarrhea, unspecified Copies to: Carlos Johnson MD EXAMINATION TYPE: US abdomen complete DATE OF EXAM ORDERED: 07/23/2023 8:57 AM HISTORY: Lower abdominal pain, diarrhea COMPARISON: NONE TECHNIQUE: Realtime imaging of the abdomen were obtained. Color Doppler and duplex Doppler imaging of the abdominal aorta and inferior vena cava were performed. FINDINGS: The gallbladder appears within normal limits without evidence of cholelithiasis. The gallbladder wall measures slightly under 3 mm in diameter . The common bile but measures 4 mm in diameter. No intrahepatic or extrahepatic biliary dilatation is seen. The liver is normal in echo reflectivity. Hepatopedal flow is noted in the main portal vein. Partial visualization of the pancreas reveals no abnormality. The spleen is homogeneous in echotexture measuring 12.2 x 9.0 x 4.5 cm in greatest dimension. There is adequate color Doppler flow in the splenic hilum. Right kidney measurements: 12.5 x 5.4 x 6.6 cm. No hydronephrosis or mass. Left kidney measurements: 12.8 x 5.7 x 4.9 cm. No hydronephrosis or mass. The proximal AP diameter is 2.4 cm and the width is 2.3 cm. Through the midsegment, the aorta measure 1.9 cm and the width is 1.9 cm. Distally, the diameter measures 1.6 cm and the width measures 1.5 cm. No aneurysm is seen. The bifurcation is visualized and the iliac arteries are normal caliber. There is no periaortic fluid. The inferior vena cava measures 1.7 cm in diameter. There is adequate color Doppler flow within the inferior vena cava. Satisfactory duplex Doppler arterial waveforms are noted in the abdominal aorta. ? US/US abdomen complete IMPRESSION: No acute intra-abdominal pathology. No evidence of aortic aneurysm. Impression dictated by: Estuardo Saravia M.D.07/23/2023 10:53 AM Dictation Location: [place] [address] Tech: Marlee Funez Transcribed By: [place] 07/23/23 1053 Dictated By: Estuardo Saravia II, MD 07/23/23 1047 Signed By: 07/23/23 1053 Normal [facility] Urea nitrogen [Mass/volume] in Serum or PlasmaOrdered By: Carlos Johnson on 07-23-2023 Urea nitrogen [Mass/Vol] 13 mg/dL 7- [facility] WBC Auto (Bld) [#/Vol]Ordere d By: Carlos Johnson on 07-23-2023 WBC (Bld) [#/Vol] 9.0 10*3/uL 4.1-10.5 [facility] Magnesiumon 11-25-2022 Magnesium [Mass/Vol] 1.1 mg/dL [facility] Other Renal Function Panelon 11-25 Albumin [Mass/Vol] 3.9 g/dL [facility] Other Calcium [Mass/Vol] 8.8 mg/dL [facility] Other Chloride [Moles/Vol] 96 mmol/L [facility] Other CO2 [Moles/Vol] 32.9 mmol/L [facility] Other Creatinine [Mass/Vol] 0.83 mg/dL [facility] Other Glucose [Mass/Vol] 138 mg/dL [facility] Other Phosphate [Mass/Vol] 4.0 mg/dL [facility] Other Potassium [Moles/Vol] 2.4 mmol/L [facility] Other Sodium [Moles/Vol] 139 mmol/L [facility] Other Urea nitrogen [Mass/Vol] 13.0 mg/dL [facility] Other Renal Function Panel [facility] Other Renal Function Panel >60 [facility] Other GLYCOHEMOGLOBIN A1Con 2022 ADA RECOMMENDATION SEE BELOW Normal [facility] Comment on above: Result Comment: ADA RECOMMENDED LIMIT 4.0 - 6.0 ADA THERAPEUTIC TARGET < 7.0 ACTION SUGGESTED > 7.0 Performed By: #### A 1C #### [facility] [address] [place] [address] Dr. Jossue Centeno Glucose [Mass/Vol] 108 mg/dL Normal [facility] Comment on above: Performed By: #### A 1C #### [facility] [address] [address] [address] Jossue Centeno HbA1c (Bld) [Mass fraction] 5.4 % Normal 4.5-6.2 [facility] Comment on above: Performed By: #### A 1C #### [facility] [address] [place] [address] Dr. Jossue Centeno Outside Recordson 01-28-2022 Outside Records [id number]#1.00OTGTIFF [facility] CBC AUTO DIFFon 01-27-2022 BASO # 0.1 103/ul Normal 0.0-0.1 [facility] Comment on above: Performed By: #### C BC #### [facility] [address] [address] [address] Jossue Centeno Basophils/100 WBC (Bld) 0.8 % Normal 0.2-2.0 [facility] Comment on above: Performed By: #### C BC #### [facility] [address] [place] [address] Dr. Jossue Centeno EO # 0.6 103/ul Normal 0.0-0.7 [facility] Comment on above: Performed By: #### C BC #### [facility] [address] [place] [address] Dr. Jossue Centeno Eosinophils/100 WBC (Bld) 5.8 % Normal 0.9-7.0 [facility] Comment on above: Performed By: #### C BC #### [facility] [address] [place] [address] Dr. Jossue Centeno Erythrocyte distribution width (RBC) [Ratio] 12.4 % Normal 11.0-15.0 [facility] Comment on above: Performed By: #### C BC #### [facility] [address] [place] [address] Dr. Jossue Centeno Hematocrit (Bld) [Volume fraction] 47.4 % Normal 42.0-54.0 [facility] Comment on above: Performed By: #### C BC #### [facility] [address] [place] [address] Dr. Jossue Centeno Hemoglobin (Bld) [Mass/Vol] 16.7 g/dL Normal 14.0-18.0 [facility] Comment on above: Performed By: #### C BC #### [facility] [address] [place] [address] Dr. Jossue Centeno IG # 0.02 10e3/ul Normal 0.00-0.03 [facility] Comment on above: Performed By: #### C BC #### [facility] [address] [place] [address] Dr. Jossue Centeno IG % 0.2 % Normal 0.0-0.5 [facility] Comment on above: Performed By: #### C BC #### [facility] [address] [place] [address] Dr. Jossue Centeno LYMPH # 2.2 103/ul Normal 1.2-3.8 [facility] Comment on above: Performed By: #### C BC #### [facility] [address] [place] [address] Dr. Jossue Centeno Lymphocytes/100 WBC (Bld) 23.1 % Normal 20.5-60.0 [facility] Comment on above: Performed By: #### C BC #### [facility] [address] [place] [address] Dr. Jossue Centeno MANUAL DIFF REQ NO Normal [facility] Comment on above: Performed By: #### C BC #### [facility] [address] [place] [address] Dr. Jossue Centeno MCH (RBC) [Entitic mass] 28.2 pg Normal 25.9-34.0 [facility] Comment on above: Performed By: #### C BC #### [facility] [address] [place] [address] Dr. Jossue Centeno MCHC (RBC) [Mass/Vol] 35.2 g/dL Normal 29.9-35.2 [facility] Comment on above: Performed By: #### C BC #### [facility] [address] [place] [address] Dr. Jossue Centeno MCV (RBC) [Entitic vol] 79.9 fL Critically low 80.0-94. 0 [facility] Comment on above: Performed By: #### C BC #### [facility] [address] [place] [address] Dr. Jossue Centeno MONO # 0.7 103/ul Normal 0.3-0.8 [facility] Comment on above: Performed By: #### C BC #### [facility] [address] [place] [address] Dr. Jossue Centeno Monocytes/100 WBC (Bld) 7.6 % Normal 1.7-12.0 [facility] Comment on above: Performed By: #### C BC #### [facility] [address] [place] [address] Dr. Jossue Centeno NEUT # 5.9 103/ul Normal 1.4-6.5 [facility] Comment on above: Performed By: #### C BC #### [facility] [address] [place] [address] Dr. Jossue Centeno Neutrophils/100 WBC (Bld) 62.5 % Normal 43.0-75.0 [facility] Comment on above: Performed By: #### C BC #### [facility] [address] [place] [address] Dr. Jossue Centeno Platelet mean volume (Bld) [Entitic vol] 8.5 fL Critically low 9.5-13.5 [facility] Comment on above: Performed By: #### C BC #### [facility] [address] [place] [address] Dr. Jossue Centeno PLT 335 103/ul Normal 150-450 [facility] Comment on above: Performed By: #### C BC #### [facility] [address] [place] [address] Dr. Jossue Centeno RBC 5.93 106/ul Normal 4.70-6.10 [facility] Comment on above: Performed By: #### C BC #### [facility] [address] [place] [address] Dr. Jossue Centeno WBC 9.5 103/ul Normal 4.0-11.0 [facility] Comment on above: Performed By: #### C BC #### [facility] [address] [place] [address] Dr. Jossue Centeno MAGNESIUMon 01-27-2022 Magnesium [Mass/Vol] 1.5 mg/dL Critically low 1.8-2.4 [facility] Comment on above: Performed By: #### K #### [facility] [address] [address] [address] Jossue Centeno PROF 14(COMP METB)on 022 Albumin [Mass/Vol] 4.1 g/dL Normal 3.4-5.0 [facility] Comment on above: Performed By: #### M G, CMP #### [facility] [address] [address] [address] Jossue Centeno Albumin/Globulin [Mass ratio] 1.0 {ratio} Normal [facility] Comment on above: Performed By: #### M G, CMP #### [facility] [address] [place] [address] Dr. Jossue Centeno ALP [Catalytic activity/Vol] 107 U/L Normal 46-116 [facility] Comment on above: Performed By: #### M G, CMP #### [facility] [address] [place] [address] Dr. Jossue Centeno ALT [Catalytic activity/Vol] 50 U/L Normal 16-63 [facility] Comment on above: Performed By: #### M G, CMP #### [facility] [address] [place] [address] Dr. Jossue Centeno Anion gap [Moles/Vol] 12.1 mmol/L Normal [facility] Comment on above: Performed By: #### M G, CMP #### [facility] [address] [place] [address] Dr. Jossue Centeno AST [Catalytic activity/Vol] 25 U/L Normal 15-37 [facility] Comment on above: Performed By: #### M G, CMP #### [facility] [address] [place] [address] Dr. Jossue Centeno Bilirubin [Mass/Vol] 0.6 mg/dL Normal 0.2-1.0 [facility] Comment on above: Performed By: #### M G, CMP #### [facility] [address] [place] [address] Dr. Jossue Centeno Calcium [Mass/Vol] 9.3 mg/dL Normal 8.5-10.1 [facility] Comment on above: Performed By: #### M G, CMP #### [facility] [address] [place] [address] Dr. Jossue Centeno Chloride [Moles/Vol] 97 mmol/L Critically low 98-107 [facility] Comment on above: Performed By: #### M G, CMP #### [facility] [address] [place] [address] Dr. Jossue Centeno CO2 [Moles/Vol] 32.1 mmol/L Critically high 21.0-32.0 [facility] Comment on above: Performed By: #### M G, CMP #### [facility] [address] [place] [address] Dr. Jossue Centeno Creatinine [Mass/Vol] 0.76 mg/dL Normal 0.70-1.30 [facility] Comment on above: Performed By: #### M G, CMP #### [facility] [address] [place] [address] Dr. Jossue Centeno EGFR-AF MALAWIAN >60 Normal >=60 [facility] Comment on above: Performed By: #### M G, CMP #### [facility] [address] [place] [address] Dr. Jossue eCnteno EGFR-NON AF MALAWIAN >60 Normal >=60 [facility] Comment on above: Performed By: #### M G, CMP #### [facility] [address] [place] [address] Dr. Jossue Centeno Globulin (S) [Mass/Vol] 4.1 g/dL Normal [facility] Comment on above: Performed By: #### M G, CMP #### [facility] [address] [place] [address] Dr. Jossue Centeno Glucose [Mass/Vol] 92 mg/dL Normal 74-106 [facility] Comment on above: Performed By: #### M G, CMP #### [facility] [address] [place] [address] Dr. Jossue Centeno Potassium [Moles/Vol] 3.2 mmol/L Critically low 3.5-5.1 [facility] Comment on above: Performed By: #### M G, CMP #### [facility] [address] [place] [address] Dr. Jossue Centeno Protein [Mass/Vol] 8.2 g/dL Normal 6.4-8.2 [facility] Comment on above: Performed By: #### M G, CMP #### [facility] [address] [place] [address] Dr. Jossue Centeno Sodium [Moles/Vol] 138 mmol/L Normal 136-145 [facility] Comment on above: Performed By: #### M G, CMP #### [facility] [address] [place] [address] Dr. Jossue Centeno Urea nitrogen [Mass/Vol] 11.0 mg/dL Normal 7.0-18.0 [facility] Comment on above: Performed By: #### M G, CMP #### [facility] [address] [place] [address] Dr. Jossue Centeno Urea nitrogen/Creatinine [Mass ratio] 14.5 mg/mg Normal [facility] Comment on above: Performed By: #### M G, CMP #### [facility] [address] [place] [address] Dr. Jossue Centeno Outside Recordson 12-08-2021 Outside Records [id number]#1.00OTGTIFF Normal [facility] Office Visit (Cardiology)on 12-02-2021 Follow-up visit Diagnoses/Problems Assessed Atypical chest pain (786.59) (R07.89) Cardiac enzymes elevated (790.5) (R74.8) Hypokalemia (276.8) (E87.6) Hypomagnesemia (275.2) (E83.42) Class 1 obesity with body mass index (BMI) of 31.0 to 31.9 in adult (278.00,V85.31) (E66.9,Z68.31) Never a smoker Orders Atypical chest pain Echocardiogram; Status:Hold For - Scheduling,Retrosp ective Authorization; Requested for:[id number]; Atypical chest pain, Cardiac enzymes elevated, Hypokalemia, Hypomagnesemia Cardiac Stress Test; Status:Hold For - Scheduling,Retrosp ective Authorization; Requested for:[id number]; Class 1 obesity with body mass index (BMI) of 31.0 to 31.9 in adult Healthy Weight Tips; Status:Complete - Retrospective Authorization; Done: [id number] SocHx: Never a smoker Tobacco Use Screening; Status:Complete; Done: [id number] Tobacco Use Screening; Status:Complete; Done: [id number] Tobacco Use Screening; Status:Complete; Done: [id number] Patient Instructions By signing my name below, I, I, Kellie Sparks RN, am scribing for and in the [...] interventions and denies any congenital cardiac history. Impression/recomme ndations: Highly doubt significant coronary disease however we [...] negative for complaint. Vitals Vital Signs Recorded: [id number] 09:05AMRecorded: [id number] 09:04AM Oekcwozm120, LUE, Nxyjqya135, RUE, Sitting Yvnkojtkl70, LUE, Zxgzlgc89, RUE, Sitting Heart Rate66, Apical Height5 ft 10 in Rkwogy414 lb BMI Omcrospgif31.14 kg/m2 BSA Calculated2.16 Tobacco Useb) No PHQ-2 [...] 2+ bilate (more content not included)... Normal [employer] Tobacco Screening.on 022 Adult depression screening assessment No [employer] Work Phone: Fall risk assessment c) Not medically indicated [facility] Work Phone: Tobacco use status [facility] b) No [facility] Work Phone: POTASSIUMon 11-16-2021 Potassium [Moles/Vol] 3.8 mmol/L Normal 3.5-5.1 [facility] Comment on above: Performed By: #### K #### [facility] [address] [place] [address] Dr. Jossue Centeno Lab - Other Lab Resultson Lab - Other Lab Results [id number]#1.00OTGTIFF Normal [facility] POTASSIUMon 11-12-2021 Potassium [Moles/Vol] 3.7 mmol/L Normal 3.5-5.1 [facility] Comment on above: Performed By: #### K #### [facility] [address] [place] [address] Dr. Jossue Centeno HEMOGRAM AND PLATELon 2021 Hematocrit (Bld) [Volume fraction] 45.0 % Normal 42.0-54.0 [facility] Comment on above: Performed By: #### H H #### [facility] [address] [place] [address] Dr. Jossue Centeno Hemoglobin (Bld) [Mass/Vol] 15.1 g/dL Normal 14.0-18.0 [facility] Comment on above: Performed By: #### H H #### [facility] [address] [place] [address] Dr. Jossue Centeno MCH (RBC) [Entitic mass] 27.9 pg Normal 25.9-34.0 [facility] Comment on above: Performed By: #### H H #### [facility] [address] [place] [address] Dr. Jossue Centeno MCHC (RBC) [Mass/Vol] 33.6 g/dL Normal 29.9-35.2 [facility] Comment on above: Performed By: #### H H #### [facility] [address] [place] [address] Dr. Jossue Centeno MCV (RBC) [Entitic vol] 83.2 fL Normal 80.0-94.0 [facility] Comment on above: Performed By: #### H H #### [facility] [address] [place] [address] Dr. Jossue Centeno PLT 299 103/ul Normal 150-450 [facility] Comment on above: Performed By: #### H H #### [facility] [address] [place] [address] Dr. Jossue Centeno RBC 5.41 106/ul Normal 4.70-6.10 [facility] Comment on above: Performed By: #### H H #### [facility] [address] [place] [address] Dr. Jossue Centeno WBC 10.2 103/ul Normal 4.0-11.0 [facility] Comment on above: Performed By: #### H H #### [facility] [address] [place] [address] Dr. Jossue Centeno MAGNESIUMon 11-11-2021 Magnesium [Mass/Vol] 1.3 mg/dL Critically low 1.8-2.4 [facility] Comment on above: Performed By: #### K #### [facility] [address] [place] [address] Dr. Jossue Centeno Outside Recordson 11-11-2021 Outside Records [id number]#1.00OTGTIFF Normal [facility] RENAL FUNCTION PANELon 11-11 Albumin [Mass/Vol] 4.1 g/dL Normal 3.4-5.0 [facility] Comment on above: Performed By: #### K #### [facility] [address] [place] [address] Dr. Jossue Centeno Calcium [Mass/Vol] 9.4 mg/dL Normal 8.5-10.1 [facility] Comment on above: Performed By: #### K #### [facility] [address] [place] [address] Dr. Jossue Centeno Chloride [Moles/Vol] 102 mmol/L Normal 98-107 [facility] Comment on above: Performed By: #### K #### [facility] [address] [address] [address] Jossue Centeno CO2 [Moles/Vol] 30.7 mmol/L Normal 21.0-32.0 [facility] Comment on above: Performed By: #### K #### [facility] [address] [address] [address] Jossue Centeno Creatinine [Mass/Vol] 0.83 mg/dL Normal 0.70-1.30 [facility] Comment on above: Performed By: #### K #### [facility] [address] [address] [address] Jossue Centeno EGFR-AF MALAWIAN >60 Normal >=60 [facility] Comment on above: Performed By: #### K #### [facility] [address] [place] [address] Dr. Jossue Centeno EGFR-NON AF MALAWIAN >60 Normal >=60 [facility] Comment on above: Performed By: #### K #### [facility] [address] [address] [address] Jossue Centeno Glucose [Mass/Vol] 94 mg/dL Normal 74-106 [facility] Comment on above: Performed By: #### K #### [facility] [address] [place] [address] Dr. Jossue Centeno Phosphate [Mass/Vol] 2.4 mg/dL Critically low 2.6-4.7 [facility] Comment on above: Performed By: #### K #### [facility] [address] [address] [address] Jossue Centeno Potassium [Moles/Vol] 5.7 mmol/L Critically high 3.5-5.1 [facility] Comment on above: Performed By: #### K #### [facility] [address] [address] [address] Jossue Centeno Sodium [Moles/Vol] 139 mmol/L Normal 136-145 [facility] Comment on above: Performed By: #### K #### [facility] [address] [address] [address] Jossue Centeno Urea nitrogen [Mass/Vol] 13.0 mg/dL Normal 7.0-18.0 [facility] Comment on above: Performed By: #### K #### [facility] [address] [place] [address] Dr. Jossue Centeno CARDIAC ESTUARDO 3-6on 2 CK [Catalytic activity/Vol] 536 U/L Critically high 39-308 [facility] Comment on above: Performed By: #### K #### [facility] [address] [address] [address] Jossue Centeno CK.MB [Mass/Vol] 3.09 ng/mL Normal <=3.60 [facility] Comment on above: Performed By: #### K #### [facility] [address] [place] [address] Dr. Jossue Centeno HSTROP 179.4 pg/mL Critically high 4.0-76.1 [facility] Comment on above: Result Comment: CUT- OFF POINTS HAVE BEEN ESTABLISHED BASED ON THE FOURTH UNIVERSAL DEFINITIONS OF MYOCARDIAL INFARCTION. THE UPPER REFERENCE LIMIT (URL) OF TROPONIN, DEFINED THE 99TH PERCENTILE OF cTnI DISTRIBUTION IN A REFERENCE POPULATION, HAS BEEN CONFIRMED THE DECISION THRESHOLD FOR ND DIAGNOSIS. TEST REPEATED. CRITICAL VALUE VERIFIED Performed By: #### K #### [facility] [address] [place] [address] Dr. Jossue Centeno CARDIAC ESTUARDO ADMITon 022 CK [Catalytic activity/Vol] 607 U/L Critically high 39-308 [facility] Comment on above: Performed By: #### B MARY QUEEN #### [facility] [address] [place] [address] Dr. Jossue Centeno CK.MB [Mass/Vol] 3.82 ng/mL Critically high <=3.60 [facility] Comment on above: Result Comment: TEST REPEATED. CRITICAL VALUE VERIFIED Performed By: #### B MARY QUEEN #### [facility] [address] [place] [address] Dr. Jossue Centeno HSTROP 187.8 pg/mL Critically high 4.0-76.1 [facility] Comment on above: Result Comment: CUT- OFF POINTS HAVE BEEN ESTABLISHED BASED ON THE FOURTH UNIVERSAL DEFINITIONS OF MYOCARDIAL INFARCTION. THE UPPER REFERENCE LIMIT (URL) OF TROPONIN, DEFINED THE 99TH PERCENTILE OF cTnI DISTRIBUTION IN A REFERENCE POPULATION, HAS BEEN CONFIRMED THE DECISION THRESHOLD FOR ND DIAGNOSIS. TEST REPEATED. CRITICAL VALUE VERIFIED Performed By: #### B BERNICE, CMADM #### [facility] [address] [place] [address] Dr. Jossue Centeno MELVI 100 ng/mL Critically high 16-96 [facility] Comment on above: Performed By: #### B BERNICE, JIDM #### [facility] [address] [place] [address] Dr. Jossue Centeno CBC AUTO DIFFon 11-08-2021 BASO # 0.1 103/ul Normal 0.0-0.1 [facility] Comment on above: Performed By: #### K #### [facility] [address] [place] [address] Dr. Jossue Centeno Basophils/100 WBC (Bld) 0.5 % Normal 0.2-2.0 [facility] Comment on above: Performed By: #### K #### [facility] [address] [place] [address] Dr. Jossue Centeno EO # 0.2 103/ul Normal 0.0-0.7 [facility] Comment on above: Performed By: #### K #### [facility] [address] [place] [address] Dr. Jossue Centeno Eosinophils/100 WBC (Bld) 1.3 % Normal 0.9-7.0 [facility] Comment on above: Performed By: #### K #### [facility] [address] [place] [address] Dr. Jossue Centeno Erythrocyte distribution width (RBC) [Ratio] 12.6 % Normal 11.0-15.0 [facility] Comment on above: Performed By: #### K #### [facility] [address] [place] [address] Dr. Jossue Centeno Hematocrit (Bld) [Volume fraction] 41.4 % Critically low 42.0-54.0 [facility] Comment on above: Performed By: #### K #### [facility] [address] [place] [address] Dr. Jossue Centeno Hemoglobin (Bld) [Mass/Vol] 14.5 g/dL Normal 14.0-18.0 [facility] Comment on above: Performed By: #### K #### [facility] [address] [place] [address] Dr. Jossue Centeno IG # 0.05 10e3/ul Critically high 0.00-0.03 [facility] Comment on above: Performed By: #### K #### [facility] [address] [place] [address] Dr. Jossue Centeno IG % 0.4 % Normal 0.0-0.5 [facility] Comment on above: Performed By: #### K #### [facility] [address] [place] [address] Dr. Jossue Centeno LYMPH # 1.6 103/ul Normal 1.2-3.8 [facility] Comment on above: Performed By: #### K #### [facility] [address] [place] [address] Dr. Jossue Centeno Lymphocytes/100 WBC (Bld) 12.4 % Critically low 20.5-60.0 [facility] Comment on above: Performed By: #### K #### [facility] [address] [place] [address] Dr. Jossue Centeno MANUAL DIFF REQ NO Normal [facility] Comment on above: Performed By: #### K #### [facility] [address] [place] [address] Dr. Jossue Centeno MCH (RBC) [Entitic mass] 28.3 pg Normal 25.9-34.0 [facility] Comment on above: Performed By: #### K #### [facility] [address] [place] [address] Dr. Jossue Centeno MCHC (RBC) [Mass/Vol] 35.0 g/dL Normal 29.9-35.2 [facility] Comment on above: Performed By: #### K #### [facility] [address] [address] [address] Jossue Centeno MCV (RBC) [Entitic vol] 80.7 fL Normal 80.0-94.0 [facility] Comment on above: Performed By: #### K #### [facility] [address] [address] [address] Jossue Centeno MONO # 0.9 103/ul Critically high 0.3-0.8 [facility] Comment on above: Performed By: #### K #### [facility] [address] [address] [address] Jossue Centeno Monocytes/100 WBC (Bld) 6.9 % Normal 1.7-12.0 [facility] Comment on above: Performed By: #### K #### [facility] [address] [place] [address] Dr. Jossue Centeno NEUT # 10.3 103/ul Critically high 1.4-6.5 [facility] Comment on above: Performed By: #### K #### [facility] [address] [place] [address] Dr. Jossue Centeno Neutrophils/100 WBC (Bld) 78.5 % Critically high 43.0-75.0 [facility] Comment on above: Performed By: #### K #### [facility] [address] [place] [address] Dr. Jossue Centeno Platelet mean volume (Bld) [Entitic vol] 9.5 fL Normal 9.5-13.5 [facility] Comment on above: Performed By: #### K #### [facility] [address] [place] [address] Dr. Jossue Centeno PLT 306 103/ul Normal 150-450 [facility] Comment on above: Performed By: #### K #### [facility] [address] [place] [address] Dr. Jossue Centeno RBC 5.13 106/ul Normal 4.70-6.10 [facility] Comment on above: Performed By: #### K #### [facility] [address] [address] [address] Jossue Centeno WBC 13.1 103/ul Critically high 4.0-11.0 [facility] Comment on above: Performed By: #### K #### [facility] [address] [address] [address] Jossue Centeno LIVER PROFILEon 11-08-2021 Albumin [Mass/Vol] 3.8 g/dL Normal 3.4-5.0 [facility] Comment on above: Performed By: #### L IVER #### [facility] [address] [place] [address] Dr. Jossue Centeno Albumin/Globulin [Mass ratio] 1.1 {ratio} Normal [facility] Comment on above: Performed By: #### L IVER #### [facility] [address] [place] [address] Dr. Jossue Centeno ALP [Catalytic activity/Vol] 91 U/L Normal 46-116 [facility] Comment on above: Performed By: #### L IVER #### [facility] [address] [place] [address] Dr. Jossue Centeno ALT [Catalytic activity/Vol] 69 U/L Critically high 16-63 [facility] Comment on above: Performed By: #### L IVER #### [facility] [address] [place] [address] Dr. Jossue Centeno AST [Catalytic activity/Vol] 40 U/L Critically high 15-37 [facility] Comment on above: Performed By: #### L IVER #### [facility] [address] [place] [address] Dr. Jossue Centeno BILI, CONJUGATED 0.1 mg/dL Normal 0.0-0.2 [facility] Comment on above: Performed By: #### L IVER #### [facility] [address] [place] [address] Dr. Jossue Centeno Bilirubin [Mass/Vol] 0.6 mg/dL Normal 0.2-1.0 [facility] Comment on above: Performed By: #### L IVER #### [facility] [address] [place] [address] Dr. Jossue Centeno Globulin (S) [Mass/Vol] 3.4 g/dL Normal [facility] Comment on above: Performed By: #### L IVER #### [facility] [address] [place] [address] Dr. Jossue Centeno Protein [Mass/Vol] 7.2 g/dL Normal 6.4-8.2 [facility] Comment on above: Performed By: #### L IVER #### [facility] [address] [place] [address] Dr. Jossue Centeno PROF CHEM 8 (BAS METB)on Anion gap [Moles/Vol] 10.3 mmol/L Normal [facility] Comment on above: Performed By: #### B BERNICE, CMADM #### [facility] [address] [place] [address] Dr. Jossue Centeno Calcium [Mass/Vol] 8.9 mg/dL Normal 8.5-10.1 [facility] Comment on above: Performed By: #### B BERNICE, CMADM #### [facility] [address] [place] [address] Dr. Jossue Centeno Chloride [Moles/Vol] 97 mmol/L Critically low 98-107 [facility] Comment on above: Performed By: #### B BERNICE, CMADM #### [facility] [address] [place] [address] Dr. Jossue Centeno CO2 [Moles/Vol] 34.0 mmol/L Critically high 21.0-32.0 [facility] Comment on above: Performed By: #### B BERNICE, CMADM #### [facility] [address] [place] [address] Dr. Jossue Centeno Creatinine [Mass/Vol] 0.89 mg/dL Normal 0.70-1.30 [facility] Comment on above: Performed By: #### B BERNICE, CMADM #### [facility] [address] [place] [address] Dr. Jossue Centeno EGFR-AF MALAWIAN >60 Normal >=60 [facility] Comment on above: Performed By: #### B BERNICE, CMADM #### [facility] [address] [address] [address] Jossue Centeno EGFR-NON AF MALAWIAN >60 Normal >=60 [facility] Comment on above: Performed By: #### B BERNICE, CMADM #### [facility] [address] [address] [address] Jossue Centeno Glucose [Mass/Vol] 98 mg/dL Normal 74-106 [facility] Comment on above: Performed By: #### B BERNCIE, CMADM #### [facility] [address] [address] [address] Jossue Centeno Potassium [Moles/Vol] 2.4 mmol/L Critically low 3.5-5.1 [facility] Comment on above: Result Comment: TEST REPEATED. CRITICAL VALUE VERIFIED Performed By: #### B BERNICE, CMADM #### [facility] [address] [place] [address] Dr. Jossue Centeno Sodium [Moles/Vol] 139 mmol/L Normal 136-145 [facility] Comment on above: Performed By: #### B BERNICE, CMADM #### [facility] [address] [address] [address] Jossue Centeno Urea nitrogen [Mass/Vol] 14.0 mg/dL Normal 7.0-18.0 [facility] Comment on above: Performed By: #### B BERNICE, CMADM #### [facility] [address] [address] [address] Jossue Centeno Urea nitrogen/Creatinine [Mass ratio] 15.7 mg/mg Normal [facility] Comment on above: Performed By: #### B BERNICE, CMADM #### [facility] [address] [address] [address] Jossue Centeno XR CHEST 2 Von [...] ONIEL WILSON Date: 2021-11-08 20:44 Normal [facility] Coding Summaryon 06-25-2021 Coding Summary HTMLBase 64 DieyhowgXLv3eGf+PG hlYWQ+JU3NGJMlR03s zOJqrS2UD5qYFA4RMG NNYCCUSH3BIG2trZF5 YUsgZ6RpdyLd BfybeBHsBC78WPq0NH K6aPvfOQtytM8nhHGq T4n2IvXaBQ78nX22SH hhDIZcByE8BoCijloh bWFy G1eeAgRvpWDcFiw+PH RhYmxlIHdpZHRoPScx VOBkXjPoyKewCO7lSz 9yZGVyLWNvbGxhcHNl OiBj q0oqIXLvEJutAS3krI nhT8WcdOL8HCTsf2d1 Rp66eNM+VAMsOJA9vI uqOZjuh661OzRrj4ss IDM3 qLLqVJhfZVW1D63ei0 O2UDOmIXRjMVX4iUQ8 kY5ryPfljdyfB0LbaL RuXjK3VAH3tUTusG9d bGln lrsobS1eBrt+Q09ESU 4JZAGFVN9FBqm7Z7Dr PjwvdHI+LP28NMPzDX 01sDSxaVCqn3yixXk1 JzEw DLRcLHN9gThyVTlcz1 HwUGToM05djSNtq2X4 IGNvbGxhcHNlOyBlbX H0dB4hVWdqosroz3kn dzsn Svbnn2fzuo01vX49Q2 0cJNdrMAVxLSD5GWVq PDVrkWjwwk1mwP0kUq 8+DQekq5spx0bqkBz0 IjIw PIEnliZdwJyxPPS2z1 RoHb83R7YlbAzry9Pr Byv4zi41rWSba9F2eD S6WBwlKLRbxO0rDKah ZnQ6 SFBsZrKkdD61bMRaTW gyJb2sfCtvsPecZO5f AVMocuzvATLlaF7zBV SwgVHazNdtKP3lFNDr bjtm q560LdUyPPO7HHGjxO GzP3XhfX3nFtOaYSIa REPnL7MoxGWvKVlxZ3 62PKyoYcY7TQEnnlCp Y2Fs CAMhyIlkKrB1y0C0Wc 3Es8OnukelHEA6RGzm WOAaJbO9PsZgIxX8D6 RzKzc0EJXvlWgaTB3f J3Bh QXSxzjvnqgtmxER1HO MoOBYbhR29gHYoUQtz Om8uc1D2y181TDNcAO WipE62We6gpYvrYLUg dCBU bH4bpapgb0qraipmSe KfFWVpVSo5VJf7RCYc qAjoFmTdPLK1QuL9HH B9vVGvbC5nxJdemhic dG9w Oyc+T87gsF4bIBF6LJ D6tzkcDELpvnXbBF41 EF32D2WqVymmrRLyzK U+EIAqmqNviUwnKD0o YmFj b8uwk8QnRUzuJ7AcNZ CbHCrjGat4VBVfGJQ0 pBZ8gC0wXXWwSUaiz5 E8aCR2O8PfspRtgu8k b2xs GXTtWHjvH79ygAGoy8 F8RAXikCS2HYQjmRhy AyAhfR67Rtd+PGNvbG wuk9LyAkgaz0egm6hn dGg9 IjMwJSIgdmFsaWduPS L5o6BbOf32O09wCGcn ZHRoPSIxNSUiIHZhbG qopq7faX7uDn1+PGNv bCB3 pUL1xV4fZQVqVrE5VH dqM669DdTgfJGrSzcf g0ali4johYo7GnVtGM QoweUspYfgLAZ6k2Hd Lz48 A75nSVysWRLgPQWwDY UhDLUrwXejnq3cnY8l Ii8+KV8fu9kfub41yD 48dHI+SWRzSYQ8eEiu PSdw TPFhpW6qIQwyYoA1WR IzEtTvvD38pGEbUGuw Cl0xnZpenXlrMO4aLF Isdohpl106QyNye6el IDEw dTHyRSvyBOK3G06rp1 W0VFJySWVeSTJ8nRN3 nS1fjVzdpcoyoTHpuM sgdmVydGljYWwtYWxp Z246 IHRvcDsnPlBhdGllbn FdFfLkSNr5B5BmYzf4 ZGWmvHibPG9ofFUbMO rgBk0nsUwamJjnNN5i NTBp mjrid391XtPcu4hmMA LxaGTcIFdxVIW7P34l e8B2RREiNRPaSBX2kA Z0cO0fsClflzoruDTi dDsg dmVydGljYWwtYWxpZ2 46IHRvcDsnPkJpcnRo JZPsfFV9UB33QZ10hQ Jfx2S5uUS7P0PwIVBq bmct qkmtvRV1XRTdKPRsbI 28Ew5bqPbvPs8rXIGo BDG5RXQyjOWqE6OsaG 0dBmDcWZClDKKrA0Ef eHQt OHhzL669SFlyMjJ1TT NgaqRbI5DfGOJtcMhi IyT4d8N2La4DS8Z5KI 86KT96fMDvk3S8yKJ9 J3Bh FIAqumjxupypqXJ4FZ AgGNXczQ26Jo1ujMyb Rv2nRPJzVQE0VHNgiT GwH6VndB8yPoFpARZl MDAw E7AseSJbIGedA786XM ebOjU3GIRecgJuM2Ol BWExdUhzMaB0n7M2Os 5THCe6ME63NB87sQBu c3R5 lWH5T7QqRKHrludxxi szfYE3OEBsOBKefY67 Oj7efLhgCa0iWUHaLN K1HRTpsLZnM1EriW6h OiAj DGGlFJVlP9EacOOkOV lwA405QQnrAzM6IWVd jbInH7XuFHXpqVyjJt W1e6R7Wo8MTUDyTE49 IFR5 rWR9GB46IF23K0IpYi wvdGFibGU+PHRhYmxl IHdpZHRoPScxMDAlJy XbrNqtZQ2pOy8uYYVp LWNv yVyggCSoSxMke5kaQO HnGKqxRR7jkCdpM6Lv bUG6JSOic0u4Ga98S1 5aK4QsxKX+PGNvbCB3 aWR0 zT0bMfYgQlW8LWhbR7 75BfUlsRIlGbdab0pm q6rjtWc1OyD4QCQady GoqJbuZRX3m5LmHj42 Y29s IHdpZHRoPSIxNSUiIH RfyCsmqr2ubC9cEx7+ TBOpwXW1zBI5fF3eQo UjHeH8YIwyR827JgVh cCIv Vsddw7car0gloCz0Vu IwJSIgdmFsaWduPSJ0 s3ZeHn41G5QjaWpzy9 AnOas3nq05iQQjg1U8 bGU9 J2PjRUAfajekoXXpfU frRX9xPUKngcmzHCPz pY6qQRDoL1o1AdJgTt K4JWyhN7ClhqH3WROf cHQg UAwhUTW8Z74yq5I2IF PuDEXpDFU7bTH6sW2s bGlnbjogbGVmdDsgdm TzqCcwQHwtECtcB099 IHRv bXexBLYbvA8uKYFcjK AfsHfxCP0fJRItjwcv HqRHE5HKVYAOFuoSAE VCQUA0K1RsKug0DHKl dHls GZ3dzMKeCCkxAh0djV vpzOztVI9eASUubdbf IGNnbZ3nOBMbiKVopE znZO6sEZQjpaoou355 OiAx XQN0ZLYvsSZrY2PhfD 3yJiRxZHTlPDCmQ0Mu jIAmFTroY554TIlpAa A8IWRsjxTjX8NrNYHp aWdu QoK6c9L8Zc3aPz9cCY 2mHPx3VM99UT29dLBo x8E7vZW9N6NlXTRnpu fqptiduNB4SLGhTYBa aW47 iBBdHOjjLv8de8H5l0 76GHMdOIHbqH38Fx1t bBabEFDkaGHAgD9fhd kzv3tpirqsKhJpWGMk MDt0 PZa9LJOpiGpwKgLsDT B2LxN8OJY7mDQnhX2o aLsajfzjdZ9oVir+Mj GpJXLzexJ8X5PjEjj0 ZCBz pRvoYC6naOSwYTugCm 4obFjgrIoqXD3fNUHz lhmuAWIguM8dBVMekB RmdEfaVA7xPCJgowgo b250 PtBjKCS1BOBuoOVoN5 MdkD0eQlPhJHPqIRWq V2KapKEpIEytU058NA hkDtS2KLHyzzYfJ9Xa LWFs hGcnBbX6s1N0Ag7TXA dRKM96VG78yUVfo8X4 eCJ5V5UtJISasdslgx ubrKK5HPCmUFSktQ69 cGFk KGnlMu6er6S5v039SY PoHCOhbU17Gn3zpNbv TXRzsTCXoO0vfgxmv5 xvcjogIzAwMDAwMDt0 ZXh0 GOUezXlpHaOhTOL5Gh N0WMI0lQToyM9bmYvu vokcgS4iLle+T1A8L3 RkPjwvdHI+TQ78MRLg ZT48 yCBrcMJug8mgzXv0Bl FaFBTeFMA8kDhuWEjj x4NgSVHiW67nrDHiw4 U4NBUouHmrvMDxZrFf bXB0 eY8iCNxeazrzj7befa nzEswpe5rzmf27mJ38 Z64hNHjqTJYjZQNtLD UdSQZvaJdkfq2iiC7n Ii8+ JTQskYP9wRJ7tW2sOn KgUnW7VXnyR286IbNc aKVgFjigb4gkq1ntvN c6AmMkQJZavaQezTzl PSJ0 v9YeXl38D66oARbyHZ RoPSIyMCUiIHZhbGln sy8inX0xRr2+PC9jb2 ovdz72dQ87qNY+PHRk IHN0 lBulLQkvOEEebU0aPC kcAtF5UDEoJkFyvV36 aRQpILaeIj7lsIctqX zxPE4hIXOtjurya913 OiBi w3pnATOakLHvEZmpQP S7A40px3T5SIHpHBBi NGT5cYO2oS3izQgibd ogbGVmdDsgdmVydGlj YWwt TRnmO807JQKncLfoRm DeeLVaQ2ljrsXOZQ4p OjwvdGQ+MGWhBEY0tB laGGqzBLAgvG0mHKFc Z2h0 PnMvJmJ5BMtoS4Egwj W6GDVkaGVqNJRdeOTK lM4cpfaow8sckbpmMr IuCWFnKBr5UIu8YXVz aWdu QvTmHWU5WpB8IXV6xS WqkF8pvDecbilhgX5q Oyc+RklOOjwvdGQ+PH YoZRW8dUyeIBukZKAj aW5n TONeM6s8GrSgIzZ9BZ tfO7FwlsW3MWJqvHPb IPYmxCAGdH9woadsz1 xvcjogIzAwMDAwMDt0 ZXh0 ZKLoeEijNeWhTJL5Gy L4RCC6zPKwqB8zzIfm mtvlfS7tFha+TVJOOj wvdGQ+NMEhIRJ8wDsv PSdw TCKmkX6nBLHnP9w3Qr JbXuI7ZLqdS6SuxxD6 IGJvbGQgMTBwdCBUaW 9hltghd3jnkppgEkTw MDAw BSg7HJn6DYOerQsaDc EfBLL3WgR7OUE1qCHd cN0tcRpfzgrruD0bJb c+MKW1ZYB4HS53DM70 L3Ry PjwvdGFibGU+PHRhYm xlIHdpZHRoPScxMDAl BeSaeQjvGO6sLy4fCJ VyLWNvbGxhcHNlOiBj b2xs YXB (more content not included)... [facility] XR Ankle Complete Righton XR Ankle Complete [...] MD 06/25/21 1:50 pm Technologist: VINCENT MOTTA Normal [facility] XR Foot 2 Views Righton 06-09 XR [...] MD 06/25/21 1:50 pm Technologist: VINCENT MOTTA [facility] Consent Formson 04-03-2021 Consent Forms [id number] [id number] [email or web address] [facility] Coding Summaryon 03-27-2021 Coding Summary HTMLBase 64 KzzciexgSRv4bJz+PG hlYWQ+ZO2WEZPbX96c qAEcdT9RP3nYHY6LLE NSWVXLCY6HDG1waMD9 ITltQ4McuhSn UkxksDOdWP05GMa8GT L3mXhtZXcvoF9anTGp C9x7GqJgMG86bQ01AD kaHMVpSvM8RoRkpqla bWFy J5vpQmAkcOKfBvh+PH RhYmxlIHdpZHRoPScx HAIsObAasOjcLJ9aLa 9yZGVyLWNvbGxhcHNl OiBj h2ezXDDkYLupGW3btO woD5YazOA4PWYkj4b3 Gt44cCQ+AXHbTGH8cF cyRByap013YvMvm8vf IDM3 jJMwMRilCFJ7H71fu3 M5KWJrSGWeUOB2nRY7 sV0prFzjijsfE2RagH OxCyS4AFJ7xBAmwV1g bGln dkwnnY2gKyi+Q09ESU 1USZQZTM2XDyr5M4Ws PjwvdHI+BM63VCKrLI 74aXFcpGJei1riwUm8 JzEw HPPuHKJ6eGurBWnvx4 RfZZVtR54hmRPhj8Y8 IGNvbGxhcHNlOyBlbX U6iF8sYIdvzcrre5tu dzsn Foogf3xdlj45sZ37Y3 0zBFmxCTNkDMH2DZYn EZGjjTitpk8yhQ0uUb 8+CElom4ksj9tvxMw4 IjIw GRVgvtJfbWojHHI7f2 MjBz28L1XtxWsyc2Cc Fvr2ix08bQYjs6P6iV S0QKsdRNBtwL2eUWna ZnQ6 DQOmMzNzuO35vJTiXZ rbPq0bxVhkzNjdDM4w USLrjidmZQGqcD6qOQ HecFPteNllGO6vBNQk bjtm l110HxQxMWT9NYSmgF ZiE4DivC3gKhQtXRQj PNAvF6AcrEYeBYesW3 65DVmlLrU8WYEezyKh Y2Fs YXSbmQjiXzH3i4Y3Ek 5Gd5DhymukPQJ6ZZor KQRdHrO6XeWsWxA6N3 JgVty6HQPfgYmpCX8v J3Bh ACJhuabeklpjhEK9IF CiQYSqfM78gLYhETcw Fb6yh8J3p171GIRaOX JpeB72Yz4xxFdxRUVw dCBU uC8fjvbtu9xhevoxCl UoKTXkNEw2IEw1LLLm nSxaPtDlGQG4QvY9UO G7wMGmzT3ngUxdonsk dG9w Oyc+X27jdO4dWPR4IP M2xnmpORUbdiYxTK38 ME38Y9OhQkghwNHmbF U+HBIbdbWmcMwcYT6g YmFj i7rtl8NgHQllI2RxNE RkOVxtLiy4ZRRkNKS0 aYR5iG8rWDHsJTwnk1 A6yIY8B8UjdeSkwf6y b2xs CMDzAAgtA00nlRMvg6 Y3AEShfFB7UWHhhVnb QyNkuL90Uht+PGNvbG wuy5RbBoyhi9pcc5xb dGg9 IjMwJSIgdmFsaWduPS F6k1DaGy19D48yDYxb ZHRoPSIxNSUiIHZhbG vvta4kiU5iZj5+PGNv bCB3 aIK9dB2aAGJbMmZ0DG dxC810TjUrbHEvNxak m5xtp7upxTc4ApXqTH VpkwBqcEzxMKV2z9Jm Lz48 J52xMXkkGOWnCCJkMS NrZXBsqHggwb5faM3n Ii8+VS9ci9wopr68aZ 48dHI+UBKhYLF2zEqf PSdw QPRjoG2zXWcmHzV1SJ MmRnRrlJ77qUVxRFmh Fr6olGfwhQdbQJ5nCN Cjxmixv391DfMjw1wn IDEw cXOxMAivHNM9N99si3 A3THSdHEUxZBX0bDX0 oM3fhZnssnoesMWlnU sgdmVydGljYWwtYWxp Z246 IHRvcDsnPlBhdGllbn IxYlUeBSy0L7WaDqv1 MDNusRcrIT7piBFsOC ezDb5ylPxpqDqoTC4j NTBp gdsgb132MrHgz2ycQD CkkAZxMDmpAGG5X14m h8G8MGCpZKFaZAH6hD C0wR4qfTersptpvBLe dDsg dmVydGljYWwtYWxpZ2 46IHRvcDsnPkJpcnRo ALRpnMT4PE91EE98kK Xin0I9oZV2Z0MdZLXh bmct obxbvWH9IUFaXEOovF 91Ay7kqCchYw6vHFVc SND2NIFwoBAnS6TahY 4xAuNhZPXuEUXqJ5Tn eHQt KIfgR361LFfyHuJ8QO TunsEfM5FnTECwaRbr LpL8u3M5Aa0SG6H2LC 19HP37jILjr1I5uSZ3 J3Bh ZPFrjvyelelonCS7DJ AwDVYkdP07Gw4ehWhj Gf6qIEPoRGK4LYNgyI WrB2FkiW2uPcQnGICi MDAw P2MwmGGdMHdaY425KO kcJyY4EOPfzeKjT2Gx IXKxkNvdMzB1i4T7Vv 0IDZu9GT51BY57lSJr c3R5 cIM9M3IaOUCdblrjgn gfhIA7MLGbDCHscQ16 Wd6xpOoaCf1fBQVxNX M3HRUdoTLxM5DjaU0m OiAj RAJzEIVyP1HubMAiFH doW344KIjjUjJ3QPKb npFiJ8RoYXAapShoQa W6d6D4Wd5ZQYNtLG14 IFR5 gZF1XD08AK92C4PiIp wvdGFibGU+PHRhYmxl IHdpZHRoPScxMDAlJy GalNzxIV7oQs4hRMOl LWNv dPkurMUuQrIbo2rzVH YwWPohYB2oiLphN8Fb mAN1WMDwg4j6Uk87K0 2qS9SmeWX+PGNvbCB3 aWR0 eI7nMlWxWxR8NGcsE6 99HzAvjGFgArpbq7hw x3wdgMt8MdY9BWEjxd VmmQbvCTM9k7MwNj37 Y29s IHdpZHRoPSIxNSUiIH UjvEhgps8evL4bEg0+ TIIhoXZ0eEH5tZ1tAw OeXiQ2JGxvI288NeRd cCIv Yqhwn8qcq4kpfZq5Xw IwJSIgdmFsaWduPSJ0 h5UmPe60W9GefJilt1 KdJcc7gn47tPLie8S5 bGU9 H1XtPKDdqkxtqDEozT xvOP2tYFVjsuuiHPYw iD2hUUEwP3s1TvOfXg X8YBjbY9OdvsB5TIOw cHQg FWkcVQA9N69bw1V8WS QjBKFqWFB9pFK9gS7s bGlnbjogbGVmdDsgdm MptCpqBLamMUyyI426 IHRv cRnzJSImuZ7cKZZamE OipXwqSS2bRDOvtnph LhNJS5FFDMAWXkrBGP KEGHL7W8YtJwm4MYRr dHls MA4muTWjMZvhZj6inY bmaYqlFP2eKWTxzlvx MLYtjW0wWKWpvXRzjZ zsGW5nKJKqghvne486 OiAx WFS9NCUfaHGbY3TgtY 3wMdHyEJTdGSAyN6Or lMBuCNrhY512BYniFd Q4FRCgahUsN1SfDITi aWdu ViZ7b2K9Vj3tLm7xWJ 8eHGc9FR21WS68nGAs e7B4yCB2E6BrCNNgbu xoauajcOL5HULoTHIk aW47 fKZpVOllHs3iq7I4y7 82HMPiPBWciB31Ol7e bQtlXVObjHVSdS5agt wzx9qknurbRvFeNVAb MDt0 QPq4TZAevCdeHuYaPC S6PxZ4AZR3mXCynJ1z cQviaufmkP7zUhs+Mj WpXOTcetK6X8YbPtd7 ZCBz eAcqZM2wnWIbTQudPv 7ftApvlYryVC2wWJMu kyerRSXqhR0fATKroI CzlPwkKW4sWSPrrauz b250 AlBgOYK3JGUcsOKvY8 NhjU9sOvJvNQApBJEj I5WzgAZlFSonM923TY jvCsY8GPPvkbRvB2Ox LWFs sLbpZxZ8k8H9Fj1IFL hSZT33VR47dMHhn6U7 jVO6E9QyDSVubfenqz egvLD2TMXzNAFzcH23 cGFk QKniEu1at1G5e768QZ HwZDMjjS13Pa8wfNwl ZOJkjAADsS4zisebk1 xvcjogIzAwMDAwMDt0 ZXh0 RQHxoIucFvTwAZO2By I1HZZ4bZFwhQ0huKch dxrvoL7oTdw+T1A8L3 RkPjwvdHI+WV30CIDk ZT48 qCAutUNyn6unbKf6Zy UgIODwODA5fZelPUmb o9UbPXGyK21plJQll9 U8XBRhxUpajYBtHtLv bXB0 kM3pYFlpksbkc8mcyq qiMvapn2gond33yL78 Q92oTAnbLNBzGPShCO BsGVRjyZhogi2qsV9y Ii8+ LJTqsEL5iSE1eX6nBs NgGzZ7NPzaJ374KrSg yBQnTrnii8uuw2vhlD u8BsCuNSPhtsTedGzj PSJ0 n1LaRl65V97bCVqvLV RoPSIyMCUiIHZhbGln kw1bhG1qWh9+PC9jb2 zfqi03eL29wDA+PHRk IHN0 hCddJKomHLScxP1yOS prXfC1QEGvPhRqqS34 jJAlSQwfCs9hhMyczT sfRT0gTFDizdoaz799 OiBi z4gwALKroAInLSalQF S0U78pg4L8YOFsQBUh NBQ3xYV7tK5ylZpxer ogbGVmdDsgdmVydGlj YWwt RTubM145RGFzcRugCf SocDKmH5vdjkYQXU9w OjwvdGQ+ADNoLEY1pK ceHAavTRBxfD3rZVOm Z2h0 MfMrCpN4XWsuY0Glgu R9GQQuqUZrBHCraCQB bH9zpskjp8zpqhsfLl ImISRcCIv9VLm1JUOu aWdu PeZyOXF9SjW1VPD1gY SpcV9fgNozbehuzQ4l Oyc+RklOOjwvdGQ+PH KzJXN6lGvwNNfmTIMs aW5n WOGxV5m3SkLiWcA9KV mlO0FblwQ2DSUasNJe WMXttWEZcM7pdfaul0 xvcjogIzAwMDAwMDt0 ZXh0 NWNttZihRpBvJPS5Xr G8JHH6uKIedW7ssZju vqspmS7wEcq+TVJOOj wvdGQ+PIJuUMA1gUmh PSdw RQWneB7wZAGbW9w2Oz WpWaZ9JAkvI2XdgzZ2 IGJvbGQgMTBwdCBUaW 5tbrrap9qyyillVaWz MDAw HLy9YAb5PHSjpFhdHp WoDNJ5OvX2BIO4yQEn bL3ytElzwzfbhG2qIv c+MRX1TZP4CG58ZQ02 L3Ry PjwvdGFibGU+PHRhYm xlIHdpZHRoPScxMDAl PtMdkKprHD9pWo0dJZ VyLWNvbGxhcHNlOiBj b2xs YXB (more content not included)... [facility] Coding Summary HTMLBase 64 NnvfzajxGRw8rYa+PG hlYWQ+UL8OIDHiQ57y yZZqfB0YB1cQHV3LDO WJBZMHUO5FWG9xjXD4 QLjrL1SslqXu FhckdSVtLP38VTp0RG K8mLzzIVoaeM9aeYFt H8q4KfGjRG87oK04HI qeVYDkTqC0AoPxxmzg bWFy Z3udIjKrbLGrVyz+PH RhYmxlIHdpZHRoPScx IWMkGfPefBtaEB0fJh 9yZGVyLWNvbGxhcHNl OiBj n8xzBXMxKKegWH8odW knM0GldRB0RARba0o6 Zr68kCP+UUWnIFJ0qJ foVLote358PpBwp8nf IDM3 tLTuXAdkVTQ8V92wk4 M8FJYfMRGaFXM5zMK6 nG5ciNlqvocoF8McfC WoLqO7PXC1aJScwG1i bGln dyvvbK8pQnj+Q09ESU 2WFCHOEO6SZyf1G4Jl PjwvdHI+RW81TENrUS 78tESnwQAzo5ojiGk4 JzEw QDAeCAK9zZprEZsqb2 BgKTDyL52utSPpl9A9 IGNvbGxhcHNlOyBlbX G7aK4hSThxvfkuh4nw dzsn Qdtcf2jdyv04hW87C5 5zCYqsJPTcLLC4AFIo XLRwkPpoty0hfI7xVy 8+SWdsn7ffm4fccTn4 IjIw OKHtcwCydHpuVGB1y0 PqLy33V1AfhWtlf3Nm Uyt4la84rYVyt7R4iC W3VWlmNSViaX6iYTdu ZnQ6 CIWsXhHsiF71jKEhTA wqWy6efRcbpPicNJ9y XZOqcyznAMIanS4pXI EkfDFsyCeaZB1nNZXe bjtm x797WdTiRLG4EAEerY WpK7BazI6wGcBpYLMt EELiC4HnkBEzGNfoL1 71YGqgSoN5ECHivwZs Y2Fs ZWMkaObgLrL6h5S9Me 8Zc1VtuaizXMK6GDow AAPbUhZ2WyJcHcT2B4 IsJbw9UGCjvXenAG3w J3Bh MGRzizrdgzcnuYD6GX LiWRUleX57iKZjGIwj Mu7cw3U6k193IDFjRU DejU26Nh2whRhaMNGj dCBU cT2cjbwqq9rlarpmGz VjFTYeJBj3EMi5WGDb jClhUjZcKDE7RcM4HU H3tADvvC5dnTstpovi dG9w Oyc+S08bcJ1yPNN0NC G0cnkiWKSxixQcOZ78 IY13I0EkMdwxyLDisN U+XSXrskNjuUnnYO0g YmFj b6yjw2MwTKxeV6KmHQ WnEEddHdx4OYNxWFJ9 gXH8mW8eJAKxAVjgw5 M4sSL9T3ZhtvMxys8e b2xs JBJpBOvgH65stOWkr6 M6SDUyyAQ5WLUocLbn MfXveO58Nev+PGNvbG wek8FzTsezz2qad7ur dGg9 IjMwJSIgdmFsaWduPS H3o9ZsGx86D87yQBqs ZHRoPSIxNSUiIHZhbG vyzc9bfI2xUt8+PGNv bCB3 gML9oN9kXNMtLvA3VL obC510ZpSjkQHfSlna e4ekm4uxmAv9XoSaAO KnfxKgoGwbGID9o7Xr Lz48 M59gPDfjQMNsRFYpKH MpQMOkmNofbg7jxF4h Ii8+UA4wm3ozfc91sM 48dHI+HLTiSTF4kGod PSdw KBQwgE8pBLdwNuL3EJ BhXbTksW88wTTdAPuq Me4piSulgKltJF1bNC Dcnwdbx798SbFpi1kl IDEw oGEiHLifMOX7Y75fl9 G0CVFcAAHhZYG0pIP2 iN0lmCkzqjkrmZSndK sgdmVydGljYWwtYWxp Z246 IHRvcDsnPlBhdGllbn XmCoPlVWz3V3GyIxt1 WVKleYdgSI5alYDrOX nzZx7xfKoyjItpKE1j NTBp zgddr231UzRnm9yvOM VwvVSkBKlqUEN2L68k p8V5HKTrOHAfNHO3tO T6lY5gyEqgaxygcYRr dDsg dmVydGljYWwtYWxpZ2 46IHRvcDsnPkJpcnRo QDUycVV5OZ81FJ13mY Ldj4R9jEC1J2YiJHSs bmct vgsxrXX7FVGuMIHpcV 61Js4swEawAa2sJEIt OHY6DPSjaHPtJ2GinM 0xLkTcDIVmUWAbZ8Ab eHQt GDqmK007LUkyMcW2DW KreqNyM7UdGHJdzUkd ZzL9l2W2Lk1PA3S5DB 11SH45sEYfp6O1xUG4 J3Bh MTQfgkbsvrgjkJL3TM QrDWJonX11In3ivDks Wo1kNAQcVNJ8TPGadD UoJ4ZijZ7uIuKkLTFk MDAw M1JavSGrPTsiU238NZ irWqE7THOwmnEmI6Pu QUTcmYtkHeZ1f3I2Ke 5XAZj4CB51LV86nHVa c3R5 nYA9M5QfJLTuaqyjke twuTV8OWEjAJHpfJ23 Jl6tzBovAk4aGDUhRU I2EQSnkFTrW8PmeY4v OiAj SCOjYKVyI8TepCXjXH lcM238BMkbCzZ8LZIu fbUgL9QoDOQnpZatEs L7q4J7Nq7MFWUjSU65 IFR5 vEL2HJ83JQ15O5UaRv wvdGFibGU+PHRhYmxl IHdpZHRoPScxMDAlJy DsgZemDD9iXo6iIJTb LWNv aIoecRMpGoLoc4npPV KgKAavFM2ueDlsH0Eo vTH9FOIhm7o0Tg50W3 7wO4GddDQ+PGNvbCB3 aWR0 uX7iCtDvOvP8FYjkA0 29NaJhfHRqMoljn9jz l7qmhQr3NkF7MKEqhe OwhSmlSLL9k2BgNj04 Y29s IHdpZHRoPSIxNSUiIH WdmJjoic0ezP3gPn4+ HXWmyLL3wDG8sO9nGf KeVtM4OXmoB210DmHz cCIv Wqgkm3mvi3bcbRc6Lj IwJSIgdmFsaWduPSJ0 b1SfYn23Y0DzqXsiw0 JkRtu4gn23yRZbd0N9 bGU9 D7YaAGGlwbyjiGNazW cvXJ3aEYOylxptAABg dD9eLHNoX1i8NzWfDz U4CLxgM7XyvoM9HKXy cHQg OQpvFLL9W47qq8X0RR PiXPUvCKU1qWE2gJ1t bGlnbjogbGVmdDsgdm DcqAliATlkUOkkD693 IHRv zRsaXWQbyL9fFTLxyH NchIgqLZ6hCQWjcnwr CeAWW5NGBDNTYyrZXT PCEZE3Z2RlBmu3MDNo dHls RK0mlRLdDWhoEu7rlY wpnNwrGI7uAFByiflg YQWikY1hUMWddMDmoZ wxUX1nXCTicgbmk445 OiAx EOU3XMIivYXwQ8LthV 9kGqLiAAExBQXfI4Wd yVJbEOzcR231KYsuYo G0IWQgyvDlK4SjDNWt aWdu BcR6r0P6Xm7bJn8bKZ 1aTEj5RR32YG07sRTp u8L0zXX7F3LmOBIxxp dxsrdniMK8YLKcWOPu aW47 wIXxXEjdOl9cr8Q4z3 61USOsXNOabX11Lb1w cHrePKIpoEGOhN3hsp pvq8dlzusgSsBoCRSa MDt0 YAp8ENEdfIemYqNmWV A0UgI2AMK3yAKtoU7t cGdtwtenfA0mXss+Mj SrRGMtjsP5H5CxYdx2 ZCBz nPbbON7omYVuRTlwNj 0rlZcymGhkXZ1iVBEf mkbmQGJtuP0aEPZrjE DriMesOV8uJQYdkdmo b250 DyNjXWO4MINnhZFzE6 KgcI5zSuMfEPYhMHKc J8SzkGAkVEmhH346VB vlWiG3CVPaeeYtO5Mh LWFs kAalIpM6r6T7Yw1AHG qVYQ20XZ52zLAck1S7 eIT6Y4GwRUPsoookdu cfuCJ1KAIaKIMxsE65 cGFk GFqmYi6kz4D1l731TD KvASBezZ42Wo8nwObj SRUxhLDZnC2waisqe0 xvcjogIzAwMDAwMDt0 ZXh0 PDSfgQqmBgQaAFS9Wi L7JZT7ySDupK8djOcc ukkvmG0pAzs+T1A8L3 RkPjwvdHI+RM00FLMx ZT48 kYWziDOcu8veaLd7Gl JkDAQzJUL0dSzaFPky o6JkRGQbB73cpRJdf8 U7VUAtwMoleFUfJsVj bXB0 bR0sQIphfurwv7xxoq fbJinjw1zjbv87mB94 C19tDMrqMALmBFWgZR GaDIXdtAvxdm6kiZ5f Ii8+ SVEjtOU4cQL3dD0kZb HwJmY5BGufV496FdTp uRJsMokjx2lbp8oqbH b2MsNhDRGsfqBvwGsh PSJ0 a7EaMx71V81jZZdpFM RoPSIyMCUiIHZhbGln gp7vvM4rVa8+PC9jb2 jxft67kR44yDG+PHRk IHN0 sWbfYIelMPLkqY7mHF ooScD5LNRbMwHuoP34 rZBzISbyLh4aeYvquD qrND1yFJYpkiaap030 OiBi x9vfQWThjBCtFXbaLT I6A68qn1W0UERvUUFg NMH1bNY9eC6tyAkcgi ogbGVmdDsgdmVydGlj YWwt AHgbF557EBHxqQofYw ZnqIPdD6sttdKJPW5i OjwvdGQ+OSGnVMC4aE ueOQzwXXUpoY7bJQJy Z2h0 GcUqIdD1YVfuA0Nhph S8QUUolPGxBPXbrBRQ xI6ilrqca6myismxKr UoXURaLNj2RLc3LYDw aWdu TnXmQKY5CtG7ODN7oX NveD8aiNthbhglvR0a Oyc+RklOOjwvdGQ+PH ToUGV0hWulEBgtZANj aW5n LNPsV0b5SsGbZoF8US owS9UqrkQ0ZMXidGAy UETadSNIfN1opqovq4 xvcjogIzAwMDAwMDt0 ZXh0 XSCfpHfmXoQsMRU7Gf Y0CNQ3uGKfaO5gmZks sjqfiC8eAst+TVJOOj wvdGQ+QSBxWZK7zTir PSdw POWwiS7dHKOzZ4m9Zf JoJiC8HYpzW1HlifM0 IGJvbGQgMTBwdCBUaW 2xydmuj8sihcbtOoWr MDAw DFg0IKw4TMFxbIpiEx YwHSU9CmR1BCO7fYGh zA7rmVgskgxfsV5hYi c+ATM2LCR0QX78SJ17 L3Ry PjwvdGFibGU+PHRhYm xlIHdpZHRoPScxMDAl DdGapFbgBE3iIi9iTJ VyLWNvbGxhcHNlOiBj b2xs YXB (more content not included)... Normal [facility] .Auto Diff 03-24-2021 Auto Charles Mix % 6 % Normal 05-20 [facility] Comment on above: Performed By: #### 7 [id number], [id number], [id number], [id number] #### [facility] (DEFAULT) [address] [place] [address] Baso Abs# 0.0 x10 Normal 0.0-0.2 [facility] Comment on above: Performed By: #### 7 026868, [id number], [id number], [id number] #### [facility] (DEFAULT) [address] [place] [address] Basophils/100 WBC (Bld) 0.2 % Normal 0.2-2.0 [facility] Comment on above: Performed By: #### 7 507544, [id number], 5591891, 36941835 #### [facility] (DEFAULT) [address] [place] [address] 42476 Eos Abs# 0.1 x10 Normal 0.0-0.4 [facility] Comment on above: Performed By: #### 7 489471, [id number], 6652068, [id number] #### [facility] (DEFAULT) [address] [place] [address] Eosinophils/100 WBC (Bld) 0.4 % Low 0.9-4.0 [facility] Comment on above: Performed By: #### 7 647966, [id number], 1998625, 53463016 #### [facility] (DEFAULT) [address] [place] [address] Lymph Abs# 0.8 x10 Low 1.3-2.9 [facility] Comment on above: Performed By: #### 7 367225, [id number], 9870324, 99713575 #### [facility] (DEFAULT) [address] [place] [address] Lymphocytes/100 WBC (Bld) 4 % Low 14-48 [facility] Comment on above: Performed By: #### 7 379324, [id number], 9912825, 42322331 #### [facility] (DEFAULT) [address] [place] [address] Charles Mix Abs# 1.0 x10 High 0.0-0.8 [facility] Comment on above: Performed By: #### 7 479006, [id number], 0502235, [id number] #### [facility] (DEFAULT) [address] [place] [address] Neut Abs# 15.6 x10 High 1.5-9.2 [facility] Comment on above: Performed By: #### 7 567239, [id number], 2027543, [id number] #### [facility] (DEFAULT) [address] [place] [address] Neutrophils/100 WBC (Bld) 90 % High 44-88 [facility] Comment on above: Performed By: #### 7 256082, [id number], 8999426, [id number] #### [facility] (DEFAULT) [address] [place] [address] .QC SARS-CoV-2 (COVID-19)/Fl u/RSV (Gene[employer]pert)on 03-24-2021 Internal Control Pass Normal [facility] Comment on above: Order Comment: Order ed by Renay.[[email or web address]] Performed By: #### 7 514234, [id number], 0536100, [id number] #### [facility] (DEFAULT) [address] [place] [address] CBC w/ Auto Diffon Erythrocyte distribution width (RBC) [Ratio] 13.1 % Normal 11.5-15.0 [facility] Comment on above: Performed By: #### 7 890641, [id number], 7118923, 25261739 #### [facility] (DEFAULT) [address] [place] [address] Hematocrit (Bld) [Volume fraction] 47.2 % Normal 34.8-51.9 [facility] Comment on above: Performed By: #### 7 166521, [id number], 3336276, 40084212 #### [facility] (DEFAULT) [address] [place] [address] Hemoglobin (Bld) [Mass/Vol] 16.2 g/dL Normal 11.8-17.7 [facility] Comment on above: Performed By: #### 7 728731, [id number], 0876564, [id number] #### [facility] (DEFAULT) [address] [place] [address] Instr WBC 17.4 x10 Invalid Interpretation Code [facility] Comment on above: Performed By: #### 7 531372, [id number], 2054170, [id number] #### [facility] (DEFAULT) [address] [place] [address] Man Diff? Auto Normal [facility] Comment on above: Performed By: #### 7 456084, [id number], 8504258, 17888619 #### [facility] (DEFAULT) [address] [place] [address] MCH (RBC) [Entitic mass] 28 pg Normal 24-34 [facility] Comment on above: Performed By: #### 7 707077, [id number], 6787597, [id number] #### [facility] (DEFAULT) [address] [place] [address]173 MCHC (RBC) [Mass/Vol] 34 g/dL Normal 26-37 [facility] Comment on above: Performed By: #### 7 643528, [id number], 8141300, 82016820 #### [facility] (DEFAULT) [address] [place] [address] 01934 MCV (RBC) [Entitic vol] 81 fL Normal 81-100 [facility] Comment on above: Performed By: #### 7 907977, [id number], 5266092, 33570260 #### [facility] (DEFAULT) [address] [place] [address] Platelet 314 x10 Normal 138-427 [facility] Comment on above: Performed By: #### 7 638223, [id number], 7099653, 46881383 #### [facility] (DEFAULT) [address] [place] [address] Platelet mean volume (Bld) [Entitic vol] 9.1 fL Normal 6.3-10.2 [facility] Comment on above: Performed By: #### 7 569409, [id number], 5232756, [id number] #### [facility] (DEFAULT) [address] [place] [address] RBC 5.81 x10 High 3.70-5.30 [facility] Comment on above: Performed By: #### 7 664742, [id number], 6042677, 02448508 #### [facility] (DEFAULT) [address] [place] [address] WBC 17.4 x10 High 3.5-10.5 [facility] Comment on above: Result Comment: Slid e Reviewed Performed By: #### 7 327707, [id number], 6439097, 63714751 #### [facility] (DEFAULT) [address] [place] [address] CMP Standardon 03-24-2021 eGFR Non AA >60 Invalid Interpretation Code [facility] Comment on above: Performed By: #### 7 454082, [id number], 3390014, 14025576 #### [facility] (DEFAULT) [address] [place] [address] 09393 eGFR AA >60 Invalid Interpretation Code [facility] Comment on above: Result Comment: Board Turner trish Kidney disease could be indicated at eGFRs of less than 60 ml/min/1.73m2. Kidney Failure is indicated at less than 15 ml/min/1.73m2 Performed By: #### 7 463184, [id number], 0112675, [id number] #### [facility] (DEFAULT) [address] [place] [address] 00116 Albumin [Mass/Vol] 4.6 g/dL Normal 3.5-5.0 [facility] Comment on above: Performed By: #### 7 743153, [id number], 3784550, 37625026 #### [facility] (DEFAULT) [address] [place] [address] 06103 Albumin/Globulin [Mass ratio] 1.3 {ratio} Low 1.4-2.6 [facility] Comment on above: Performed By: #### 7 112287, [id number], 6575248, 94852511 #### [facility] (DEFAULT) [address] [place] [address] 67610 Alk Phos 84 IU/L Normal 32-91 [facility] Comment on above: Performed By: #### 7 056442, [id number], 2623874, 37112725 #### [facility] (DEFAULT) [address] [place] [address] 89290 ALT [Catalytic activity/Vol] 42.0 U/L Normal 17.0-63.0 [facility] Comment on above: Performed By: #### 7 185727, [id number], 1576105, 70182126 #### [facility] (DEFAULT) [address] [place] [address] 12117 Anion gap [Moles/Vol] 14.0 mmol/L Normal 5.0-19.0 [facility] Comment on above: Performed By: #### 7 290783, [id number], 5889079, 52507295 #### [facility] (DEFAULT) [address] [place] [address] 16867 AST [Catalytic activity/Vol] 32 U/L Normal 15-41 [facility] Comment on above: Performed By: #### 7 441703, [id number], 5291444, 89433285 #### [facility] (DEFAULT) [address] [place] [address] 69211 Bili Total 1.2 mg/dL Normal 0.3-1.2 [facility] Comment on above: Performed By: #### 7 710925, [id number], 3699800, 23377751 #### [facility] (DEFAULT) [address] [place] [address] 82833 Calcium [Mass/Vol] 9.3 mg/dL Normal 8.9-10.3 [facility] Comment on above: Performed By: #### 7 385043, [id number], 6270842, 52555635 #### [facility] (DEFAULT) [address] [place] [address] 81340 Chloride [Moles/Vol] 92 mmol/L Low 101-111 [facility] Comment on above: Performed By: #### 7 671629, [id number], 8442501, 46842030 #### [facility] (DEFAULT) [address] [place] [address] 23884 CO2 [Moles/Vol] 31 mmol/L Normal 21-32 [facility] Comment on above: Performed By: #### 7 919287, [id number], 8443720, 60263057 #### [facility] (DEFAULT) [address] [place] [address] 15515 Creatinine [Mass/Vol] 0.68 mg/dL Low 0.90-1.30 [facility] Comment on above: Performed By: #### 7 289498, [id number], 6046931, 23021216 #### [facility] (DEFAULT) [address] [place] [address] 38712 Globulin (S) [Mass/Vol] 3.5 g/dL Normal 1.5-4.3 [facility] Comment on above: Performed By: #### 7 716843, [id number], 8014681, 59531590 #### [facility] (DEFAULT) [address] [place] [address] 11157 Glucose [Mass/Vol] 106.0 mg/dL Normal 74.0-118.0 [facility] Comment on above: Performed By: #### 7 948419, [id number], 6101463, 19918822 #### [facility] (DEFAULT) [address] [place] [address] 25397 Osmolality 268 mOsm/L Invalid Interpretation Code [facility] Comment on above: Performed By: #### 7 373398, [id number], 7129533, 42416329 #### [facility] (DEFAULT) [address] [place] [address] 27145 Potassium [Moles/Vol] 3.0 mmol/L Low 3.6-5.1 [facility] Comment on above: Performed By: #### 7 862071, [id number], 4397255, 25906446 #### [facility] (DEFAULT) [address] [place] [address] 92636 Protein [Mass/Vol] 8.1 g/dL Normal 6.5-8.1 [facility] Comment on above: Performed By: #### 7 567841, [id number], 0124549, 03083835 #### [facility] (DEFAULT) [address] [place] [address] 75056 Sodium [Moles/Vol] 134.0 mmol/L Low 136.0-144.0 [facility] Comment on above: Performed By: #### 7 378255, [id number], 7723504, 52319309 #### [facility] (DEFAULT) [address] [place] [address] 68712 Urea nitrogen [Mass/Vol] 11 mg/dL Normal 8-26 [facility] Comment on above: Performed By: #### 7 679515, [id number], 1364069, [id number] #### [facility] (DEFAULT) [address] [place] [address] 36802 Urea nitrogen/Creatinine [Mass ratio] 16.0 mg/mg Normal 4.6-16.2 [facility] Comment on above: Performed By: #### 7 924963, [id number], 9222131, 89801516 #### [facility] (DEFAULT) [address] [place] [address] 86933 Magnesiumon 03-24-2021 Magnesium [Mass/Vol] 1.07 mg/dL Low 1.80-2.50 [facility] Comment on above: Performed By: #### 7 977644, [id number], 1695371, 26497130 #### [facility] (DEFAULT) [address] [place] [address] 99413 BASIC METABOLIC PANELon -3 Calcium 10.4 mg/dL High 8.6-10.3 [facility] Comment on above: Performed By: #### 1 0070, 10362 ####[facility] [facility] [place] [address], [facility] Chloride 99 mmol/L Normal 98-107 [facility] Comment on above: Performed By: #### 1 0070, 91259 ####[facility] [facility] [place] [address], [facility] CO2 29 mmol/L Normal 21-31 [facility] Comment on above: Performed By: #### 1 0070, 16424 ####[facility] [facility] [place] [address], [facility] Creatinine 0.82 mg/dL Normal 0.70-1.30 [facility] Comment on above: Performed By: #### 1 0070, 03689 ####[facility] [place] [address], [facility] eGFR (black) mL/min/{1.73_m2} Normal >60 [facility] Comment on above: Performed By: #### 1 0070, 68006 ####[facility] [place] [address], [facility] eGFR (non-black) mL/min/{1.73_m2} Normal >60 Th e [facility] Comment on above: Performed By: #### 1 69, [id number] ####[facility] [place] [address], [facility] Glucose mass conc 84 mg/dL Normal 70-100 The [facility] Comment on above: Performed By: #### 1 69, [id number] ####[facility] [place] [address], [facility] Potassium molar conc 4.5 mmol/L Normal 3.5-5.1 The [facility] Comment on above: Performed By: #### 1 69, [id number] ####[facility] [place] [address], [facility] Sodium 136 mmol/L Normal 136-145 The [facility] Comment on above: Performed By: #### 1 69, [id number] ####[facility] [place] [address], [facility] Urea nitrogen 14 mg/dL Normal 7-25 The [facility] Comment on above: Performed By: #### 1 69, [id number] ####[facility] [place] [address], [facility] MAGNESIUM BLOODon 06-07-2017 Magnesium 1.6 mg/dL Low 1.9-2.7 The [facility] Comment on above: Performed By: #### 1 69, [id number] ####[facility] [place] [address], [facility] Vital Signs Date Time Vital Sign Value Performing Clinician Anthony foreman 08-18-2023 13:24-0400 Body height 172.72 cm MD Shaikh Alvarez Work Phone: [facility] 08-18-2023 13:24-0400 Body weight 104.32 kg MD Shaikh Alvarez Work Phone: [facility] 08-18-2023 13:24-0400 Diastolic blood pressure 87 mm[Hg] MD Shaikh Alvarez Work Phone: [facility] 08-18-2023 13:24-0400 Heart rate 99 /min MD Shaikh Alvarez Work Phone: [facility] 08-18-2023 13:24-0400 Respiratory rate 16 /min MD Shaikh Alvarez Work Phone: [facility] 08-18-2023 13:24-0400 SaO2% (BldA) [Mass fraction] 97 % MD Shaikh Alvarez Work Phone: [facility] 08-18-2023 13:24-0400 Systolic blood pressure 128 mm[Hg] MD Shaikh Alvarez Work Phone: [facility] 07-18-2023 13:02-0400 Body height 175.26 cm MD Shaikh Alvarez Work Phone: [facility] 07-18-2023 13:02-0400 Body mass index (BMI) [Ratio] 34.8 kg/m2 MD Shaikh Alvarez Work Phone: [facility] 07-18-2023 13:02-0400 Body weight 107.04 kg MD Shaikh Alvarez Work Phone: [facility] 07-18-2023 13:02-0400 Diastolic blood pressure 90 mm[Hg] MD Shaikh Alvarez Work Phone: [facility] 07-18-2023 13:02-0400 Heart rate 79 /min MD Shaikh Alvarez Work Phone: [facility] 07-18-2023 13:02-0400 Systolic blood pressure 129 mm[Hg] MD Shaikh Alvarez Work Phone: [facility] 06-16-2023 15:56-0500 Body height 172.7 cm Shaikh Kim CALL Work Phone: [facility] 06-16-2023 15:56-0500 Body mass index (BMI) [Ratio] 35.73 kg/m2 Shaikh Kim CALL Work Phone: [facility] 06-16-2023 15:56-0500 Body temperature 97.9 [degF] Shaikh Kim CALL Work Phone: [facility] 06-16-2023 15:56-0500 Body weight 106.59 kg Shaikh Kim CALL Work Phone: [facility] 06-16-2023 15:56-0500 Diastolic blood pressure 76 mm[Hg] Shaikh Kim CALL Work Phone: [facility] 06-16-2023 15:56-0500 Heart rate 72 /min Shaikh Kim CALL Work Phone: [facility] 06-16-2023 15:56-0500 SaO2% (BldA) [Mass fraction] 96 % Shaikh Kim CALL Work Phone: [facility] 06-16-2023 15:56-0500 Systolic blood pressure 110 mm[Hg] Shaikh Kim CALL Work Phone: [facility] 11-25-2022 15:40-0400 Body height 175.26 cm Marcelino Andra Other [employer] Other 11-25-2022 15:40-0400 Body mass index (BMI) [Ratio] 34.23 kg/m2 Marcelino Andra Other [employer] Other 11-25-2022 15:40-0400 Body temperature 98 [degF] Marcelino Andra Other [employer] Other 11-25-2022 15:40-0400 Body weight 105.14 kg Marcelino Andra Other [employer] Other 11-25-2022 15:40-0400 Diastolic blood pressure 81 mm[Hg] Marcelino Andra Other [employer] Other 11-25-2022 15:40-0400 Respiratory rate 18 /min Marcelino Andra Other [employer] Other 11-25-2022 15:40-0400 SaO2% (BldA) [Mass fraction] 98 % Marcelino Andra Other [employer] Other 11-25-2022 15:40-0400 Systolic blood pressure 134 mm[Hg] Marcelino Andra Other [employer] Other 12-02-2021 09:05-0400 Diastolic blood pressure 88 mm[Hg] Provider AMAProvider Work Phone: [facility] Work Phone: 12-02-2021 09:05-0400 Systolic blood pressure 118 mm[Hg] Provider AMAProvider Work Phone: [facility] Work Phone: 12-02-2021 09:04-0400 Body height 177.8 cm Provider AMAProvider Work Phone: [facility] Work Phone: 12-02-2021 09:04-0400 Body mass index (BMI) [Ratio] 31.14 kg/m2 Provider AMAProvider Work Phone: [facility] Work Phone: 12-02-2021 09:04-0400 Body surface area Derived from formula 2.16 m2 Provider AMAProvider Work Phone: [facility] Work Phone: 12-02-2021 09:04-0400 Body weight 98.43 kg Provider AMAProvider Work Phone: [facility] Work Phone: 12-02-2021 09:04-0400 Diastolic blood pressure 86 mm[Hg] Provider AMAProvider Work Phone: 5([phone] [place] [address] Work Phone: 12-02-2021 09:04-0400 Heart rate 66 /min Provider AMAProvider Work Phone: 1([phone] [place] [address] Work Phone: 12-02-2021 09:04-0400 Systolic blood pressure 122 mm[Hg] Provider AMAProvider Work Phone: [facility] Work Phone: 03-25-2021 12:20-0500 Body height 175.26 cm Marcelino Andra Other [employer] Other 03-25-2021 12:20-0500 Body mass index (BMI) [Ratio] 30.59 kg/m2 Marcelino Andra Other [employer] Other 03-25-2021 12:20-0500 Body temperature 99.1 [degF] Marcelino Andra Other [employer] Other 03-25-2021 12:20-0500 Body weight 93.99 kg Marcelino Andra Other [employer] Other 03-25-2021 12:20-0500 Diastolic blood pressure 82 mm[Hg] Marcelino Andra Other [employer] Other 03-25-2021 12:20-0500 Respiratory rate 18 /min Marcelino Andra Other [employer] Other 03-25-2021 12:20-0500 SaO2% (BldA) [Mass fraction] 96 % Marcelino Andra Other [facility] Other 03-25-2021 12:20-0500 Systolic blood pressure 125 mm[Hg] Marcelino Andra Other [employer] Other Encounters Encounter Date Encounter Type Care Provider Facility Start: 08-18-2023 End: 08-18-2023 ambulatory Imad Asaad Facility:[facility] Start: 08-18-2023 End: 08-18-2023 Admission to same day surgery center MD Shaikh Alvarez Work Phone: [facility] Work Phone: Start: 08-18-2023 End: 08-18-2023 ambulatory MD Shaikh Alvarez Work Phone: [facility] Work Phone: Start: 08-04-2023 End: 08-04-2023 ambulatory OSVALDO ROSA Not Available Start: 08-02-2023 End: 08-02-2023 ambulatory JEREMIAH RENÉ Not Available Start: 07-28-2023 End: 07-28-2023 ambulatory FRANCE REINA Not Available Start: 07-23-2023 End: 07-23-2023 ambulatory Shaikh Kim Facility:[facility] Start: 07-23-2023 End: 07-23-2023 ambulatory MD Shaikh Alvarez Work Phone: [facility] Work Phone: Start: 07-23-2023 End: 07-23-2023 Patient encounter procedure MD Shaikh Alvarez Work Phone: [facility] [place] Work Phone: Start: 07-21-2023 End: 07-21-2023 ambulatory FRANCE T BLACKSTON Not Available Start: 07-19-2023 End: 07-19-2023 ambulatory OSVALDO BRINK Not Available Start: 07-18-2023 End: 07-18-2023 Patient encounter procedure MD Shaikh Alvarez Work Phone: [facility] Work Phone: Start: 07-14-2023 End: 07-14-2023 ambulatory OSVALDO BRINK Not Available Start: 07-12-2023 End: 07-12-2023 ambulatory OSVALDO BRINK Not Available Start: 07-07-2023 End: 07-07-2023 ambulatory FRANCE T [place]ACK[place] Not Available Start: 06-30-2023 End: 06-30-2023 ambulatory OSVALDO BRINK Not Available Start: 06-28-2023 End: 06-28-2023 ambulatory FRANCE T [place]ACK[place] Not Available Start: 06-22-2023 Orders Only Shaikh [...] Dx) Start: 04-11-2023 End: 04-11-2023 ambulatory Imad Asakaren Other [facility] Other Start: 04-11-2023 Encounter by vickey Gonzalez Asakaren [facility] Start: 11-25-2022 End: 11-25-2022 ambulatory Marcelino Villegas Other [facility] Other Start: 11-25-2022 Office outpatient visit 15 minutes Marcelino Villegas [facility] Start: 11-25-2022 Telephone encounter Marcelino Andra [facility] Start: 08-27-2022 End: 08-27-2022 ambulatory Marcelino Andra Other [facility] Other Start: 08-27-2022 Telephone encounter Marcelino Andra [facility] Start: 06-23-2022 End: 06-24-2022 ambulatory SHAIKH Sawyer KIM Facility:[facility] Start: 01-27-2022 End: 01-28-2022 ambulatory NIDA CHUCK Facility:[facility] Start: 12-02-2021 Office [facility] ne w 45 [facility] Work Phone: Start: 11-16-2021 End: 11-17-2021 ambulatory MARCELINO ANDRA Facility:[facility] Start: 11-12-2021 End: 11-13-2021 ambulatory MARCELINO ANDRA Facility:[facility] Start: 11-11-2021 End: 11-12-2021 ambulatory MARCELINO ANDRA [employer] Other Start: 11-11-2021 Telephone encounter Marcelino Andra [facility] Start: 11-10-2021 End: 11-10-2021 ambulatory Marcelino Andra Other [facility] Other Start: 11-10-2021 Telephone encounter Marcelino Andra [facility] [place] Start: 11-08-2021 End: 11-09-2021 ambulatory NIDA CHUCK Facility:[facility] Start: 10-13-2021 End: 10-13-2021 ambulatory NIDA CHUCK Facility:[facility] Start: 10-13-2021 End: 10-13-2021 ambulatory Nida A Chuck Facility:[facility] Start: 09-23-2021 ambulatory MARCELINO ANDRA Facility:[facility] Start: 06-25-2021 End: 07-03-2021 ambulatory Nida A Chuck Facility:[facility] Start: 03-25-2021 End: 03-25-2021 ambulatory Marcelino Andra Other [facility] Other Start: 03-25-2021 Office outpatient visit 15 minutes [facility] Start: 03-24-2021 End: 04-07-2021 ambulatory Nida Woods [facility] [employer] Other Start: 03-24-2021 Telephone encounter Lauro LUDWIG [employer] Start: 07-22-2017 End: 07-23-2017 Ambulatory MARBELLA MAVERICK Facility:[facility] Start: 06-07-2017 End: 06-08-2017 Ambulatory OSIJOEMI OSDENNYWO Facility:[facility] Procedures Date Procedure Procedure Detail Performing Clinician Start: 08-18-2023 Esophagogastroduodenoscopy MD Shaikh Alvarez Work Phone: NEGATED: Highlighted row has not occurred! Total colonoscopy Provider AMAPrtheresa er Work Phone: Plan of Treatment Date Care Activity Detail Author Start: 08-18-2023 [facility] Start: 06-27-2023 End: 06-27-2023 Patient encounter procedure 06/27/2023 9:45 AM EST Office Visit [facility] [address] [place] [address] Shaikh Alvarez MD [address] [place] [address] [facility] Start: 06-23-2023 End: 06-23-2023 ambulatory 06/23/2023 1:00 PM EST Evaluation [facility] [address] [facility] [address] [place] [address] France Reina, PT [address] [facility] [address] [place] [address] [facility] Start: 06-16-2023 End: 06-16-2024 MR Shoulder - right WO contrast MR shoulder right wo IV contrast Imaging Routine Acute pain of right shoulder Expected: 06/16/2023, Expires: 06/16/2024 [facility] Work Phone: Comment on above: Expected: 06/16/2023 , Expires: 06/16/2024 Start: 01-07-2023 Influenza vaccination Influenza Vacc ine (#1) [facility] Start: 01-05-2022 STRESS NUC, Provider : FRANCISCO CUEVASI NUCLEAR 01,[id number], Status: Pen, Time: 12:00 PM STRESS NUC, Provider: FRANCISCO CUEVASI NUCLEAR 01,[id number], Status: Pen, Time: 12:00 PM [facility] Work Phone: Start: 01-05-2022 ECHO, Provider: FRANCISCO CUEVASI ULTRASOUND 01,[id number], Status: Pen, Time: 9:45 AM ECHO, Provider: FRANCISCO CUEVASI ULTRASOUND 01,[id number], Status: Pen, Time: 9:45 AM [facility] Work Phone: Immunizations Immunization Date Immunization Notes Care Provider Kayla macedo 10-04-2020 Pfizer-BioNTech COVID-19 Vacc 30 MCG/0.3ML Intramuscular Suspension Provider AMAProvider Work Phone: [facility] Work Phone: 09-07-2020 Pfizer-BioNTech COVID-19 Vacc 30 MCG/0.3ML Intramuscular Suspension Provider AMAProvider Work Phone: [facility] Work Phone: 12-14-2000 diphtheria, tetanus toxoids and acellular pertussis vaccine, unspecified formulation Provider AMAProvider Work Phone: [facility] Work Phone: 12-14-2000 measles, mumps and rubella virus vaccine Provider AMAProvider Work Phone: [facility] Work Phone: 12-14-2000 poliovirus vaccine, inactivated Provider AMAProvider Work Phone: [facility] Work Phone: 02-06-1997 diphtheria, tetanus toxoids and acellular pertussis vaccine, unspecified formulation Provider AMAProvider Work Phone: [phone] [place] [address] Work Phone: 02-06-1997 haemophilus influenz ae type b vaccine, conjugate unspecified formulation Provider AMAProvider Work Phone: [phone] [place] [address] Work Phone: 02-06-1997 measles, mumps and rubella virus vaccine Provider AMAProvider Work Phone: [phone] [place] [address] Work Phone: 10-08-1996 diphtheria, tetanus toxoids and acellular pertussis vaccine, unspecified formulation Provider AMAProvider Work Phone: [phone] [address] Work Phone: 10-08-1996 haemophilus influenz ae type b vaccine, conjugate unspecified formulation Provider AMAProvider Work Phone: [phone] [place] [address] Work Phone: 10-08-1996 hepatitis B vaccine, pediatric or pediatric/adolescent dosage Provider AMAProvider Work Phone: [phone] [place] [address] Work Phone: 10-08-1996 trivalent poliovirus vaccine, live, oral Provider A[facility]Provider Work Phone: [phone] [place] [address] Work Phone: 04-02-1996 DTP-Haemophilus influenzae type b conjugate vaccine Provider AMAProvider Work Phone: [phone] [place] [address] Work Phone: 04-02-1996 trivalent poliovirus vaccine, live, oral Provider [facility] Work Phone: [phone] [place] [address] Work Phone: 1995 DTP-Haemophilus influenzae type b conjugate vaccine Provider [facility]Provider Work Phone: [phone] [place] [address] Work Phone: 1995 hepatitis B vaccine, pediatric or pediatric/adolescent dosage Provider AMAProvider Work Phone: [phone] [address] Work Phone: 1995 trivalent poliovirus vaccine, live, oral Provider [facility] Work Phone: [phone] [address] Work Phone: 1995 hepatitis B vaccine, pediatric or pediatric/adolescent dosage Provider AMAProvider Work Phone: [facility] Work Phone: Payers Date Payer Category Payer Self-pay [id number] 2023 Private Health Insurance [facility] [id number] 2023 Private Health Insurance [facility] [id number] 2023-Present [address] [place] [address] [id number]. [id number] 2023 Private Health Insurance EB [id number] 2021 Unknown [id number] 2.16.840.1.202093.19 1995 Unknown [id number] 2.16.840.1.591024.3.579.2. 718 1995 Unknown [id number] 2.16.840.1.286881.3.579.2. 718 1995 Unknown [id number] 2.16.840.1.496946.3.579.2. 718 1995 Unknown [id number] 2.16840.1.818415.3.579.2. 718 1995 Unknown [id number] 2.16.840.1.289207.3.579.2. 593 1995 Unknown [id number] 2.16.840.1.841235.3.579.2. 59 1995 Unknown [id number] 2.16.840.1.057301.3.579.2. 593 1995 Unknown [id number] 2.16.840.1.139934.3.579.2. 59 1995 Unknown [id number] 2.16.840.1.297799.3.579.2. 593 1995 Unknown [id number] 2.16.840.1.102342.3.579.2. 593 1995 Unknown [id number] 2.16.840.1.305127.3.579.2. 593 1995 Unknown [id number] 2.16.840.1.154053.3.579.2. 593 1995 Unknown [id number] 2.16.840.1.076191.3.579.2. 1259 1995 Unknown [id number] 2.16.840.1.932196.3.579.2. 1258 1995 Unknown [id number] 2.16.840.1.837516.3.579.2. 9 1995 Unknown [id number] 2.16.840.1.191014.3.579.2. 1258 1995 Unknown [id number] 2.16.840.1.441592.3.579.2. 9 1995 Unknown [id number] 2.16.840.1.499974.3.579.2. 1258 1995 Unknown [id number] 2.16.840.1.936910.3.579.2. 9 1995 Unknown [id number] 2.16.840.1.788917.3.579.2. 1258 1995 Unknown [id number] 2.16.840.1.878153.3.579.2. 1258 1995 Unknown [id number] 2.16.840.1.216499.3.579.2. 1258 1995 Unknown [id number] 2.16.840.1.441629.3.579.2. 1259 1959 Private Health Insurance [id number] 1959 Private Health Insurance [id number] Self-pay [id number] 1959 Unknown [id number] Unknown [id number] Unknown Unknown [id number] 2.16.840.1.455837.3.579.2. 531 Unknown [id number] 2.16.840.1.511065.3.579.2. 531 Social History Date Type Detail Facility Unknown if ever smoked [facility] Other Start: 06-16-2023 Sex Assigned At [facility] Other Start: 06-16-2023 No illicit drug use No illicit drug use [facility] Work Phone: Comment on above: 1 can of pop daily.; Start: 06-16-2023 End: 08-18-2023 Tobacco smoking status NHIS Never smoked tobacco [facility] Start: 06-16-2023 End: 06-20-2023 Alcohol intake Lifetime non-drinker (finding) [facility] Start: 1995 Sex Assigned At Not on file [facility] Start: 1995 Sex Assigned At Male [facility] NEGATED: Highlighted rowStart: NINF History of tobacco use Passive smoker [facility] Goals Date Patient Goal Desired Activity /State Clinical Notes 03-25-2021 to 06-16-2023 Shaikh Kim [...] weeks (around 06/30/2023). documented in this encounter [facility] 11-25-2022 Evaluation note Encounter Date [...] the Gitelman syndrome. Continue oral magnesium supplement. [facility] Other 04-21-2023 Evaluation note* Encounter Date Diagnosis Assessment Notes Treatment Notes Treatment Clinical Notes Aug, Hypomagnesemia (ICD-10 - E83.42) Aug, Hypokalemia (ICD-10 - E87.6) [facility] Other 07-06-2022 Evaluation note* Encounter Date Diagnosis Assessment Notes Treatment Notes Treatment Clinical Notes Nov, Leukocytosis (ICD-10 - D72.829) Nov, Hypomagnesemia (ICD-10 - E83.42) Nov, Hypokalemia (ICD-10 - E87.6) [facility] Other 07-04-2022 Chief complaint Narrative - Reported* [...] or ischemic defects and follow-up as needed [facility] Work Phone: [phone] 528-192907-04-2022 Chief complaint Narrative - Reported* WOOD HORN [...] or ischemic defects and follow-up as needed [facility] Work Phone: [phone] 494-572811-17-2021 Evaluation note* Encounter Date Diagnosis Assessment Notes [...] weeks to make sure it is resolved. 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 Hospitalization History low potassium 2013 Hospitalization History low potassium 2018 Hospitalization History low potassium 2018 [facility] Other Reason for referral (narrative)* Consultation (Routine) - Pending Review Specialty Diagnoses / Procedures Referred By Contac t Referred To Contact Orthopaedic Surgery Diagnoses Infraspinatus strain, right, subsequent encounter Shaikh Alvarez MD [address] [place] [address] Rey Cruz MD [address] [place] [address] Referral ID Status Reason Start Date Expiration Date Visits Requested Visits Authorized [id number] Pending Review Specialty Services Required 06/22/2023 12/19/2023 1 1 [facility] Summary Purpose Family History No Family History Records FoundUnknown Family Member Name Dates Details No pertinent family history: Mother, Father, Sister, Brother(V49.89, Z78.9) Status:Active Unknown Family Member Name Dates Details No pertinent family history: Mother, Father, Sister, Brother(V49.89, Z78.9) Status:Active Relationship Condition Age at Onset Recorded Date/T nasir Not Specified Diabetes mellitus Unknown Hypertension Unknown Advance Directives No Advanced Directives Records Found Advance Directive Response Recorded Date/ Time Advance Directives No October 15 7:09pm Reason for Referral Specialty Diagnoses / Procedures Referred By Contac t Referred To Contact Diagnoses Acute pain of right shoulder Procedures MR shoulder right wo IV contrast Shaikh Alvarez MD [address] [place] [address] [facility] [address] [place] [address] Phone: [phone] Referral ID Status Reason Start Date Expiration Date V isits Requested Visits Authorized [id number] Pending Review 06/16/2023 12/13/2023 1 1 Specialty Diagnoses / Procedures Referred By Sonny peters Referred To Contact Physical Therapy Diagnoses Acute pain of right shoulder Procedures IN OFFICE/OUTPATIENT NEW HIGH MDM 60 MINUTES Shaikh Alvarez MD [address] [place] [facility] [place] [address] France Reina, PT [address] [address] Referral ID Status Reason Start Date Expiration Date Visits Requested Visits Authorized [id number] Pending Review Consult and Treat 06/16/2023 12/13/2023 1 1 Chief Complaint and Reason for Visit Chief Complaint CONSULT- ABDOMINAL P AIN R19.7 Reason for Visit Abdominal pain Chief Complaint CONSULT- ABDOMINAL P AIN R19.7 abd pain Reason for Visit Abdominal pain Additional Source Comments (unrecognized sect ion and content) No Status Records FoundNo Status Records FoundNo Status Records FoundNo Status Records FoundNo Status Records FoundNo Status Records Found INFORMATION SOURCE (unrecogn ized section and content) DATE CREATED AUTHOR 10/28/2017 [facility] DATE CREATED AUTHOR AUTHOR'S ORGANIZ ATION 12/05/2021 [employer] DATE CREATED AUTHOR AUTHOR'S ORGANIZ ATION 02/07/2022 [facility] DATE CREATED AUTHOR AUTHOR'S ORGANIZ ATION 06/28/2022 [facility] DATE CREATED AUTHOR AUTHOR'S ORGANIZ ATION 08/05/2023 [facility] EPIC DATE CREATED AUTHOR AUTHOR'S ORGANIZ ATION 08/25/2023 [facility] REASON FOR VISIT (unrecogniz ed section and content) Reason Comments Shoulder Pain RIGHT Care Teams (unrecognized sec tion and content) [employer] Relationship Specialty Start Date End Date Shaikh Alvarez MD [address] [place] [address] PCP - General Internal Medicine 06/16/23 [employer] Relationship Specialty Start Date End Date Shaikh Alvarez MD [address] [place] [address] PCP - General Internal Medicine 06/16/23 Team Status: Active Member Role Status Dates Shaikh Kim MD Primary Care Provider Active Team Status: Inactive Member Role Status Dates Nida Woods APRN [employer] CLAIMS EXAMINER-C Primary Care Provider Active Start: July 18, 2023 End: July 18, 2023 Carlos Johnson MD Attending Provider Active Start: July 18, 2023 End: July 18, 2023 Team Status: Inactive Member Role Status Dates Carlos Johnson MD Attending Provider Active Start: July 23, 2023 End: July 23, 2023 Shaikh Kim MD Primary Care Provider Active Start: July 23, 2023 End: July 23, 2023 Team Status: Inactive Member Role Status Dates Carlos Johnson MD Attending Provider Active Start: August 18, 2023 End: August 18, 2023 Shaikh Kim MD Primary Care Provider Active Start: August 18, 2023 End: August 18, 2023 Goals (unrecognized section and content) Goals may be documented in a n alternate section FOR RECORDS PERTAINING TO PATIENTS WHO ARE [...] BE BASED ON THE PRIMARY CLINICAL RECORDS. [facility] [employer] [facility]. provides no warranty or guarantee of the accuracy or completeness of information in this document.
[2023-08-31 17:05] LABS: Anion Gap 12.9; BUN Creatinine Ratio 13.6; Calcium 9.8 mg/dL (8.5-10.1); Carbon Dioxide 31.8 mmol/L (21.0-32.0); Chloride 98 mmol/L (98-107); Estimated GFR (African America >60 (>=60); Estimated GFR (Non-African Ame >60 (>=60); Glucose 111 mg/dL (74-106); Potassium 3.7 mmol/L (3.5-5.1); Sodium 139 mmol/L (136-145)
== END 2023-08-31 16:20 | disposition home or self-care (01) ==
PROVIDERS: PCP Internal Medicine; Visit Provider Internal Medicine
DX: E87.5 Hyperkalemia (principal)
CPT/HCPCS: 36415; 80048

== ENCOUNTER 2023-10-06 09:28 | Outpatient (OUT) | payer OTHER, SELFPAY ==
--- OUTSIDE RECORDS SUMMARY | 2023-10-06 09:55 | XMS_ITS | CCD ---
Demographics [address] [address] Preferred Language en Marital Status Mandaeism Affiliation Unknown Race White Ethnic Group Not or Lati no Author Organization [facility] Care Team Providers Care Security Public Safety Officer Name Role Phone OSINOWO, OSIYEMI Unavailable Unavailable OSINOWO, OSIYEMI Unavailable Unavailable NADAUD, ESTUARDO Unavailable Unavailable NADAUD, ESTUARDO Unavailable Unavailable MAVERICK, MARBELLA Unavailable Unavailable MAVERICK, MARBELLA Unavailable Unavailable DAQUAN, GRICEL Unavailable Unavailable DAQUAN, GRICEL Unavailable Unavailable Andra, Marcelino Unavailable Unavailable Unavailable Chuck, Nida A Admitting Unavailable Chuck, Nida A Attending Unavailable Chuck ANVIL SEATING PRESS OPERATOR-C, Nida A Primary Care Unavailable Chuck, Nida A Attending Unavailable Chuck ANVIL SEATING PRESS OPERATOR-C, Nida A Primary Care Unavailable Chuck, Nida A Admitting Unavailable Chuck, Nida A Attending Unavailable Chuck ANVIL SEATING PRESS OPERATOR-C, Nida A Primary Care Unavailable Chuck, Nida A Attending Unavailable Chuck, Nida A Admitting Unavailable Chuck ANVIL SEATING PRESS OPERATOR-C, Nida A Primary Care Unavailable ANDRA, [...] FAN Consulting Unavailable ONIEL WILSON Consulting Unavailable ANDRA, MARCELINO Admitting Unavailable ANDRA, MARCELINO Attending Unavailable CHUCK, NIDA Primary Care Unavailable Asaad, Imad Unavailable Joss Alvarez MDikh Primary Care Provider [phone] MD Carlos Johnson Attending Provider MD Eva Alvarez Primary Care Provider JOSS ALVAREZIKH Attending Unavailable FRANCE REINA Attending Unavailable FAWWAD, VELASQUEZ Referring Unavailable BROSVALDO GRAY Attending Unavailable FAWWAD, VELASQUEZ Referring Unavailable FRANCE REINA Attending Unavailable FAWWAD, VELASQUEZ Referring Unavailable OSVALDO LEE Attending Unavailable FAWWAD, VELASQUEZ Referring Unavailable BROSVALDO GRAY Attending Unavailable FAWWAD, VELASQUEZ Referring Unavailable BROSVALDO GRYA Attending Unavailable FAWWAD, VELASQUEZ Referring Unavailable FRANCE REINA Attending Unavailable FAWWAD, VELASQUEZ Referring Unavailable BLACKSTONFRANCE T Attending Unavailable FAWWAD, VELASQUEZ Referring Unavailable JEREMIAH MERRITT Attending Unavailable FAWWAD, VELASQUEZ Referring Unavailable BROSVALDO GRAY Attending Unavailable FAWWAD, VELASQUEZ Referring Unavailable Asaad, Imad Attending Unavailable Asaad, Imad Admitting Unavailable Fawwad, Velasquez Primary Care Unavailable Asaad, Imad Admitting Unavailable Fawwad, Velasquez Primary Care Unavailable Asaad, Imad Attending Unavailable Asaad, Imad Admitting Unavailable Fawwad, Velasquez Primary Care Unavailable Asaad, Imad Attending Unavailable Medications Current Medications Medication Drug Class(es) Dates Sig (Normalized) Sig (Original) aMILoride hydrochloride 5 mg oral tablet (17 sources) Potassium-sparin g Diuretic Start: 07-18-2023 take 10 mg by mouth twice daily Amiloride Active 10 MG PO Twice daily July 18, 2023 12:00am take 2 tablets by mouth in the m orning aMILoride (Midamor) 5 MG tablet Take 10 mg by mouth in the morning and 10 mg before bedtime. 0 Active take 2 tablets by [facility] every twelve hours magnesium chloride 535 mg [...] 12-25-2018 magnesium oxide 400 mg oral capsule (5 sources) Start: 07-18-2023 take 800 mg by mouth twice daily Magnesium Oxide Active 800 MG PO Twice daily July 18, 2023 12:00am Magnesium Oxide 400 MG CAPS TAKE 2 CAPSULE Twice daily Quantity: 0 Refills: 0 Ordered: 02-Dec-2021 DO Active omeprazole 40 mg delayed release oral capsule (1 source) Proton Pump Inhibitor Start: 09-01-2023 take 40 mg by mouth once daily Omeprazole Active 40 MG PO Daily 56 56 September 01, 2023 12:00am potassium chloride 20 meq extended release oral tablet (17 sources) Start: 07-18-2023 take 6 tablets by mouth twice daily Potassium Chloride Active 0 PO Twice daily July 18, 2023 12:00am 6 tablets orally twice daily; Start: 11-25-2022 potassium chlo ride CR (K-Tab) 20 MEQ ER tablet take 6 tablets by [facility] every twelve hours Potassium Chloride ER 20 MEQ 6 tablets Orally bid for 90 day(s) Active take 6 tablets by [facility] every twelve hours predniSONE 20 mg [...] Date Documented Da te Episodic/Chronic Abdominal pain (11 sources) Abdominal pain; Translations: [Unspecified abdominal pain] [...] FUNCTION] Onset: 06-07-2017 Chronic Other gastrointestinal disorders (5 sources) Diarrhea; Translations: [Diarrhea, unspecified] 07-18-2023 Episodic [...] 11-08-2021 Episodic Other aftercare (1 source) Other half-way (current) drug therapy; Translations: [OTH DEPUTY 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 CURRENT DRUG THERAPY] Onset: 10-14-2021 Episodic Other [...] Test Name Value Interpretation Reference Range Facility [facility] 09-01-2023 L Specimen: [id number] Received: 09/02/23 Status: MICHELLE Rejonathan Num: [id number] Spec Type: Surgical Subm Dr: Carlos Johnson MD Tissues: A Duodenum - Biopsy (DUODENUM BX) B GASTRIC FOR HP (GASTRIC HP) C Esophagus Biopsy (ESOPHAGEAL BX) Procedures: HE/6, Gross/Micro L4/3, H PYLORI, IHC First AB Age/ Patient Sex Location Account Attending Physician Wood Horn 27/M [id number] Carlos Johnson MD SPEC NUM: [id number] RECD: 09/02/23 STATUS: MICHELLE DE GUZMAN NUM: [id number] ALLEN: 09/01/23 DR: Carlos Johnson MD ENTERED: 09/02/[address] [facility] [address]: SPEC TYPE: Surgical DEPT: S ORDERED: HE/6, Gross/Micro L4/3, H PYLORI, IHC First AB ORDERED: HE/6, Gross/Micro L4/3, H PYLORI, IHC First AB Pathological Diagnosis A. Duodenum, biopsy: - No active enteritis, sprue?like changes or other diagnostic abnormalities. B. Gastric ulcer, biopsy: - Benign gastric mucosa featuring pit epithelial hyperplasia, consistent with proximity to an ulcer. - Chronic, essentially inactive gastritis. - No intestinal metaplasia or neoplasm. - Properly controlled immunohistochemical stain negative for Helicobacter pylori organisms. C. Esophagus, biopsy: - Benign squamous mucosa featuring significant eosinophilic inflammation (with up to greater than 40 intraepithelial eosinophils per HPF), consistent with eosinophilic esophagitis. Gross Description Received are 3 formalin filled containers each labeled with the patient's name and specific specimen site. A. Further labeled duodenum BX are 2 franz mucosal tissue fragments each measuring 0.2 x 0.2 x 0.1 cm, entirely submitted in A1. -------- Specimen: [id number] Received: 09/02/23 Status: MICHELLE De Guzman Num: [id number] Spec Type: Surgical Subm Dr: Carlos Johnson MD Tissues: A Duodenum - Biopsy (DUODENUM BX) B GASTRIC FOR HP (GASTRIC HP) C Esophagus Biopsy (ESOPHAGEAL BX) Procedures: HE/6, Gross/Micro L4/3, H PYLORI, IHC First AB -------- Patient: Wood Horn [id number] (Continued) -------- Specimen: [id number] Received: 09/02/23 (Continued) Gross Description (Continued) Signed (signature on file) Jaylen Caputo MD 09/06/23 1642 -------- Specimen: [id number] Received: 09/02/23 Status: MICHELLE De Guzman Num: [id number] Spec Type: Surgical Subm Dr: Carlos Johnson MD Tissues: A Duodenum - Biopsy (DUODENUM BX) B GASTRIC FOR HP (GASTRIC HP) C Esophagus Biopsy (ESOPHAGEAL BX) Procedures: HE/6, Gross/Micro L4/3, H PYLORI, IHC First AB -------- Patient: Wood Horn [id number] (Continued) -------- Specimen: [id number] Received: 09/02/23 (Continued) Gross Description (Continued) B. Further labeled gastric ulcer BX are 2 franz mucosal tissue fragments measuring 0.3 x 0.2 x 0.1 cm and 0.2 x 0.2 x 0.1 cm, entirely submitted in B1. C. Further labeled esophageal BX are 3 franz mucosal tissue fragments ranging from 0.3 x 0.2 x 0.1 cm to 0.1 x 0.1 x 0.1 cm, entirely submitted in C1. Clinical history: Abdominal pain, rule out celiac, rule out H. pylori, rule out EOE CPT Codes [id number], [id number] -------- -------- Specimen: [id number] Received: 09/02/23 Status: MICHELLE De Guzman Num: [id number] Spec Type: Surgical Subm Dr: Carlos Johnson MD Tissues: A Duodenum - Biopsy (DUODENUM BX) B GASTRIC FOR HP (GASTRIC HP) C Esophagus Biopsy (ESOPHAGEAL BX) Procedures: HE/6, Gross/Micro L4/3, H PYLORI, IHC First AB -------- Patient: Wood Horn [id number] (Continued) -------- Signed (signature on file) Jaylen Caputo MD 09/06/23 0017 Normal [facility] Magnesium [Mass/volume] in S joon or PlasmaOrdered By: Carlos Johnson on 09-01-2023 Magnesium [Mass/Vol] 1.1 mg/dL Low 1.9-2.7 [facility] Comment on above: Result Comment: PERF ORMED BY: [place] [address] PATHOLOGIST REFRIGERATION LEAD LIEN TAN M.D. Performed By: #### Isabell Luna, K #### [facility] [address] [place] [address] Potassium [Moles/volume] in Serum or PlasmaOrdered By: Imad Asaad on 09-01-2023 Potassium [Moles/Vol] 3.6 mmol/L Normal 3.5-5.1 [facility] Comment on above: Hemolysis is present at a level that could interfere with the result. Result Comment: Hemo lysis is present at a level that could interfere with the result. Performed By: #### Isabell Luna, K #### [facility] [address] [place] [address] Arterial blood standard base excess determination by calculationOrdered By: Imad Asaad on 08-18-2023 Base excess standard Calc (BldA) [Moles/Vol] 9 mmol/L -2-3 [facility] Basophil percentageOrdered B y: Imad Asaad on 08-18-2023 Basophil percentage 46.3 mm[Hg] 35-51 [facility] Basophil percentage 36 mm[Hg] 80-105 [facility] Blood carbon dioxide, total measurement by calculation (moles/volume)Ordered By: Imad Asaad on 08-18-2023 CO2 Calc (Bld) [Moles/Vol] 34 mmol/L 23-[address] [facility] [address] biopsyOrdered By: Imad As aad on 08-18-2023 Hematocrit (Bld) [Volume fraction] 49.0 % 38.0-51.0 [facility] Glucose Glucometer (BldC) [M ass/Vol]Ordered By: Imad Asaad on 08-18-2023 Glucose [Mass/Vol] 95 mg/dL 70-105 [facility] Hemoglobin Calc (Bld) [Mass/ Vol]Ordered By: Imad Asaad on 08-18-2023 Hemoglobin (Bld) [Mass/Vol] 16.7 g/dL 12.0-17.0 [facility] ISTAT ABGon 08-18-2023 CO2 [Moles/Vol] 34 mmol/L High 23-29 [facility] Comment on above: Performed By: #### I SABG #### [address] Glucose [Mass/Vol] 95 mg/dL Normal 70-105 [facility] Comment on above: Result Comment: PERF ORMED BY: [place] [address] PATHOLOGIST REFRIGERATION LEAD LIEN TAN M.D. Performed By: #### I SABG #### [address] HCO3 (Bld) [Moles/Vol] 32.9 mmol/L High 22.0-28.0 [facility] Comment on above: Performed By: #### I SABG #### [address] Hematocrit (Bld) [Volume fraction] 49.0 % Normal 38.0-51.0 [facility] Comment on above: Performed By: #### I SABG #### [address] Hemoglobin (Bld) [Mass/Vol] 16.7 g/dL Normal 12.0-17.0 [facility] Comment on above: Performed By: #### I SABG #### [place] [address] [place] ISTAT Base Excess 9 mmol/L High -2 TO 3 [facility] Comment on above: Performed By: #### I SABG #### [address] ISTAT Ionized Calcium 1.14 mol/L Normal 1.12-1.32 [facility] Comment on above: Performed By: #### I SABG #### [address] [address] [place] ISTAT PCO2 46.3 mm[Hg] Normal 35-51 [facility] Comment on above: Performed By: #### I SABG #### [address] ISTAT Ph 7.460 High 7.31-7.45 [facility] Comment on above: Performed By: #### I SABG #### [facility] [address] [place] [address] ISTAT PO2 36 mm[Hg] Low 80-105 [facility] Comment on above: Performed By: #### I SABG #### [facility] [address] [place] [address] Oxygen saturation in Blood 72 % Low 95-98 [facility] Comment on above: Result Comment: Refe rence ranges reflect baseline specimens only Performed By: #### I SABG #### [facility] [address] [place] [address] Potassium [Moles/Vol] 2.5 mmol/L Off scale low 3.5-4.9 [facility] Comment on above: Performed By: #### I SABG #### [address] Sodium [Moles/Vol] 139 mmol/L Normal 138-146 [facility] Comment on above: Performed By: #### I SABG #### [facility] [address] [place] [address] [place] Potassium (Bld) [Moles/Vol]O rdered By: Imad Asaad on 08-18-2023 Potassium [Moles/Vol] 2.5 mmol/L 3.5-4.9 [facility] Sodium (Bld) [Moles/Vol]Orde red By: Imad Asaad on 08-18-2023 Sodium [Moles/Vol] 139 mmol/L 138-146 [facility] Whole blood bicarbonate ryan urementOrdered By: Imad Asaad on 08-18-2023 HCO3 (Bld) [Moles/Vol] 32.9 mmol/L 22.0-28.0 [facility] Whole blood ionized calcium measurement (moles/volume)Ordered By: Imad Asaad on 08-18-2023 Calcium.ionized (Bld) [Moles/Vol] 1140 mmol/L 1.12-1.32 [facility] Whole blood oxygen saturatio n measurementOrdered By: Imad Asaad on 08-18-2023 Oxygen saturation in Blood 72 % 95-98 [facility] Comment on above: Reference ranges ref lect baseline specimens only Whole blood pHOrdered By: Im ad Asaad on 08-18-2023 pH (Bld) 7.460 Units 7.31-7.45 [facility] Alanine aminotransferase [En zymatic activity/volume] in Serum or PlasmaOrdered By: Imad Asaad on 07-23-2023 ALT [Catalytic activity/Vol] 30 U/L 7-52 [facility] Albumin [Mass/volume] in Ser um or Plasma by Bromocresol green (BCG) dye binding methoOrdered By: Imad Asaad on 07-23-2023 Albumin BCG dye [Mass/Vol] 4.4 g/dL 3.5-5.7 [facility] Alkaline phosphatase [Enzyma tic activity/volume] in Serum or PlasmaOrdered By: Imad Asaad on 07-23-2023 ALP [Catalytic activity/Vol] 87 U/L 34-104 [facility] Aspartate aminotransferase [ Enzymatic activity/volume] in Serum or PlasmaOrdered By: Imad Asaad on 07-23-2023 AST [Catalytic activity/Vol] 25 U/L 13-39 [facility] Basophils Auto (Bld) [#/Vol] Ordered By: Imad Asaad on 07-23-2023 Basophils (Bld) [#/Vol] 0.1 10*3/uL 0.0-0.2 [facility] Basophils/100 WBC Auto (Bld) Ordered By: Imad Asaad on 07-23-2023 Basophils/100 WBC (Bld) 0.7 % . [facility] Bilirubin.total [Mass/volume ] in Serum or PlasmaOrdered By: Imad Asaad on 07-23-2023 Bilirubin [Mass/Vol] 0.7 mg/dL 0.3-1.0 [facility] Calcium [Mass/volume] in Ser um or PlasmaOrdered By: Imad Asaad on 07-23-2023 Calcium [Mass/Vol] 9.2 mg/dL 8.6-10.3 [facility] Carbon dioxide, total [Moles /volume] in Serum or PlasmaOrdered By: Imad Asaad on 07-23-2023 CO2 [Moles/Vol] 34.0 mmol/L 21.0-31.0 [facility] Chloride [Moles/volume] in S joon or PlasmaOrdered By: Imad Asaad on 07-23-2023 Chloride [Moles/Vol] 98 mmol/L 98-107 [facility] Complete Blood Count Auto Di ffon 07-23-2023 Basophils (Bld) [#/Vol] 0.1 10*3/uL Normal 0.0-0.2 [facility] Comment on above: Result Comment: PERF ORMED BY: [place] [address] PATHOLOGIST REFRIGERATION LEAD LIEN TAN M.D. Performed By: #### C MP, CBC, LIPASE #### [address] Basophils/100 WBC (Bld) 0.7 % Normal . [facility] Comment on above: Performed By: #### C MP, CBC, LIPASE #### [address] Eosinophils (Bld) [#/Vol] 0.4 10*3/uL Normal 0.0-0.45 [facility] Comment on above: Performed By: #### C MP, CBC, LIPASE #### [facility] [address] Eosinophils/100 WBC (Bld) 4.2 % Normal . [facility] Comment on above: Performed By: #### C MP, CBC, LIPASE #### [address] Erythrocyte distribution width (RBC) [Ratio] 14.0 % Normal 12.0-14.8 [facility] Comment on above: Performed By: #### C MP, CBC, LIPASE #### [address] Hematocrit (Bld) [Volume fraction] 43.7 % Normal 38.8-50.0 [facility] Comment on above: Performed By: #### C MP, CBC, LIPASE #### [address] Hemoglobin (Bld) [Mass/Vol] 15.1 g/dL Normal 13.0-17.0 [facility] Comment on above: Performed By: #### C MP, CBC, LIPASE #### [address] Lymphocytes (Bld) [#/Vol] 2.2 10*3/uL Normal 1.00-4.8 [facility] Comment on above: Performed By: #### C MP, CBC, LIPASE #### [address] Lymphocytes/100 WBC (Bld) 24.3 % Normal . [facility] Comment on above: Performed By: #### C MP, CBC, LIPASE #### [address] MCH (RBC) [Entitic mass] 27.7 pg Normal 27.5-35.2 [facility] Comment on above: Performed By: #### C MP, CBC, LIPASE #### [address] MCV (RBC) [Entitic vol] 80.1 fL Low 83.5-101 [facility] Comment on above: Performed By: #### C MP, CBC, LIPASE #### [address] Mean Corpuscular HGB Conc 34.6 g/dL Normal 32.5-35.6 [facility] Comment on above: Performed By: #### C MP, CBC, LIPASE #### [address] Monocytes (Bld) [#/Vol] 0.6 10*3/uL Normal 0.0-0.8 [facility] Comment on above: Performed By: #### C MP, CBC, LIPASE #### [facility] [address] [place] [address] [place] Monocytes/100 WBC (Bld) 6.9 % Normal . [facility] Comment on above: Performed By: #### C MP, CBC, LIPASE #### [facility] [address] Neutrophils (Bld) [#/Vol] 5.8 10*3/uL Normal 1.8-7.7 [facility] Comment on above: Performed By: #### C MP, CBC, LIPASE #### [facility] [address] Neutrophils/100 WBC (Bld) 63.9 % Normal . [facility] Comment on above: Performed By: #### C MP, CBC, LIPASE #### [facility] [address] NRBC% 0.0 /100{WBC} Normal 0-0.5 [facility] Comment on above: Performed By: #### C MP, CBC, LIPASE #### [facility] [address] [place] [address] [place] Platelet mean volume (Bld) [Entitic vol] 7.2 fL Normal 6.6-10.1 [facility] Comment on above: Performed By: #### C MP, CBC, LIPASE #### [facility] [address] [place] [address] [place] Platelets (Bld) [#/Vol] 353 10*3/uL Normal 150-450 [facility] Comment on above: Performed By: #### C MP, CBC, LIPASE #### [facility] [address] [place] [address] [place] RBC (Bld) [#/Vol] 5.46 10*6/uL Normal 3.90-5.60 [facility] Comment on above: Performed By: #### C MP, CBC, LIPASE #### [facility] [address] [place] [address] [place] WBC (Bld) [#/Vol] 9.0 10*3/uL Normal 4.1-10.5 [facility] Comment on above: Performed By: #### C MP, CBC, LIPASE #### [address] Comprehensive Metabolic Pane radha 07-23-2023 Albumin [Mass/Vol] 4.4 g/dL Normal 3.5-5.7 [facility] Comment on above: Performed By: #### C MP, CBC, LIPASE #### [address] Albumin/Globulin [Mass ratio] 1.5 {ratio} Normal [facility] Comment on above: Performed By: #### C MP, CBC, LIPASE #### [address] ALP [Catalytic activity/Vol] 87 U/L Normal 34-104 [facility] Comment on above: Performed By: #### C MP, CBC, LIPASE #### [address] ALT [Catalytic activity/Vol] 30 U/L Normal 7-52 [facility] Comment on above: Performed By: #### C MP, CBC, LIPASE #### [address] Anion gap [Moles/Vol] 11.8 mmol/L Normal 6.0-15.0 [facility] Comment on above: Performed By: #### C MP, CBC, LIPASE #### [address] AST [Catalytic activity/Vol] 25 U/L Normal 13-39 [facility] Comment on above: Performed By: #### C MP, CBC, LIPASE #### [address] Bilirubin [Mass/Vol] 0.7 mg/dL Normal 0.3-1.0 [facility] Comment on above: Performed By: #### C MP, CBC, LIPASE #### [address] Calcium [Mass/Vol] 9.2 mg/dL Normal 8.6-10.3 [facility] Comment on above: Performed By: #### C MP, CBC, LIPASE #### [address] Chloride [Moles/Vol] 98 mmol/L Normal 98-107 [facility] Comment on above: Performed By: #### C MP, CBC, LIPASE #### [address] CO2 [Moles/Vol] 34.0 mmol/L High 21.0-31.0 [facility] Comment on above: Performed By: #### C MP, CBC, LIPASE #### [address] Creatinine [Mass/Vol] 0.73 mg/dL Normal 0.70-1.30 [facility] Comment on above: Performed By: #### C MP, CBC, LIPASE #### [address] GFR/1.73 sq M.predicted MDRD (S/P/Bld) [Vol rate/Area] mL/min/{1.73_m2} Normal [facility] Comment on above: Performed By: #### C MP, CBC, LIPASE #### [address] Globulin (S) [Mass/Vol] 2.9 g/dL Normal [facility] Comment on above: Performed By: #### C MP, CBC, LIPASE #### [address] Glucose [Mass/Vol] 92 mg/dL Normal 70-100 [facility] Comment on above: Result Comment: [place] Glucose Reference Range is dependent on time and content of last meal. Glucose of more than 200 mg/dL in a nonstressed, ambulatory subject supports the diagnosis of Diabetes Mellitus. ADA recommended reference range Performed By: #### C MP, CBC, LIPASE #### [address] Potassium [Moles/Vol] 2.8 mmol/L Off scale low 3.5-5.1 [facility] Comment on above: Result Comment: Crit ical Result Called to and read back by: HALIMA CHAVEZ at: 07/23/2023 11:41:15 by:[id number] Performed By: #### C MP, CBC, LIPASE #### [facility] [address] [place] [address] [place] Protein [Mass/Vol] 7.3 g/dL Normal 6.4-8.9 [facility] Comment on above: Performed By: #### C MP, CBC, LIPASE #### [facility] [address] [place] [address] [place] Sodium [Moles/Vol] 141 mmol/L Normal 136-145 [facility] Comment on above: Performed By: #### C MP, CBC, LIPASE #### [facility] [address] [place] [address] [place] Urea nitrogen [Mass/Vol] 13 mg/dL Normal 7-25 [facility] Comment on above: Performed By: #### C MP, CBC, LIPASE #### [facility] [address] [place] [id number] [place] Creatinine [Mass/volume] in Serum or PlasmaOrdered By: Imad Asaad on 07-23-2023 Creatinine [Mass/Vol] 0.73 mg/dL 0.70-1.30 [facility] Eosinophils Auto (Bld) [#/Vo l]Ordered By: Imad Asaad on 07-23-2023 Eosinophils (Bld) [#/Vol] 0.4 10*3/uL 0.0-0.45 [facility] Eosinophils/100 WBC Auto (Bl d)Ordered By: Imad Asaad on 07-23-2023 Eosinophils/100 WBC (Bld) 4.2 % . [facility] Erythrocyte distribution wid th Auto (RBC) [Ratio]Ordered By: Imad Asaad on 07-23-2023 Erythrocyte distribution width (RBC) [Ratio] 14.0 % 12.0-14.8 [facility] Globulin Calc (S) [Mass/Vol] Ordered By: Imad Asaad on 07-23-2023 Globulin (S) [Mass/Vol] 2.9 g/dL [facility] Glucose [Mass/volume] in Ser um or PlasmaOrdered By: Imad Asaad on 07-23-2023 Glucose [Mass/Vol] 92 mg/dL 70-100 [facility] Comment on above: ADA recommended refe rence rangeRandom Glucose Reference Range is dependent on time and content of last meal. Glucose of more than 200 mg/dL in a nonstressed, ambulatory subject supports the diagnosis of Diabetes Mellitus. Hematocrit Auto (Bld) [Volum e fraction][facility]: [facility] Hematocrit (Bld) [Volume fraction] 43.7 % 38.8-50.0 [facility] [facility] Hem[facility] [Mass/volume] in BloodOrdered By: ad [facility] on 07-23-2023 Hemoglobin (Bld) [Mass/Vol] 15.1 g/dL 13.0-17.0 [facility] Leukocytes [#/volume] correc augusto for nucleated erythrocytes in Blood by Automated counOrdered By: Imad Asaad on 07-23-2023 WBC corrected for nucl RBC Auto (Bld) [#/Vol] 9.0 10*3/uL 4.1-10.5 [facility] Lipaseon 07-23-2023 Lipase [Catalytic activity/Vol] 39.0 U/L Normal 11.0-82.0 [facility] Comment on above: Result Comment: PERF ORMED BY: [place] [address] PATHOLOGIST REFRIGERATION LEAD LIEN TAN M.D. Performed By: #### C MP, CBC, LIPASE #### [address] Lipase [Enzymatic activity/v olume] in Serum or PlasmaOrdered By: Imad Asaad on 07-23-2023 Lipase [Catalytic activity/Vol] 39.0 U/L 11.0-82.0 [facility] Lymphocytes Auto (Bld) [#/Vo l]Ordered By: Imad Asaad on 07-23-2023 Lymphocytes (Bld) [#/Vol] 2.2 10*3/uL 1.00-4.8 [facility] Lymphocytes/100 WBC Auto (Bl d)Ordered By: Imad Asaad on 07-23-2023 Lymphocytes/100 WBC (Bld) 24.3 % . [facility] MCH Auto (RBC) [Entitic mass ]Ordered By: Imad Asaad on 07-23-2023 MCH (RBC) [Entitic mass] 27.7 pg 27.5-35.2 [facility] MCHC Auto (RBC) [Mass/Vol]Or dered By: Imad Asaad on 07-23-2023 MCHC (RBC) [Mass/Vol] 34.6 g/dL 32.5-35.6 [facility] MCV Auto (RBC) [Entitic vol] Ordered By: Imad Asaad on 07-23-2023 MCV (RBC) [Entitic vol] 80.1 fL 83.5-101 [facility] Monocytes Auto (Bld) [#/Vol] Ordered By: Imad Asaad on 07-23-2023 Monocytes (Bld) [#/Vol] 0.6 10*3/uL 0.0-0.8 [facility] Monocytes/100 WBC Auto (Bld) Ordered By: Imad Asaad on 07-23-2023 Monocytes/100 WBC (Bld) 6.9 % . [facility] Neutrophils Auto (Bld) [#/Vo l]Ordered By: Imad Asaad on 07-23-2023 Neutrophils (Bld) [#/Vol] 5.8 10*3/uL 1.8-7.7 [facility] Neutrophils/100 WBC Auto (Bl d)Ordered By: Imad Asaad on 07-23-2023 Neutrophils/100 WBC (Bld) 63.9 % . [facility] No Panel InformationOrdered By: Imad Asaad on 07-23-2023 Estimated GFR (CKD-EPI) > 60.0 mL/Min [facility] Creatinine Clearance (Chem N/A [facility] Nucleated erythrocytes [Pres ence] in Blood by Automated countOrdered By: Imad Asaad on 07-23-2023 Nucleated RBC Auto Ql (Bld) 0.0 /100{WBC} 0-0.5 [facility] Platelet mean volume Auto (B ld) [Entitic vol]Ordered By: Imad Asaad on 07-23-2023 Platelet mean volume (Bld) [Entitic vol] 7.2 fL 6.6-10.1 [facility] Platelets Auto (Bld) [#/Vol] Ordered By: Imad Asaad on 07-23-2023 Platelets (Bld) [#/Vol] 353 10*3/uL 150-450 [facility] Potassium [Moles/volume] in Serum or PlasmaOrdered By: Imad Asaad on 07-23-2023 Potassium [Moles/Vol] 2.8 mmol/L 3.5-5.1 [facility] Comment on above: Critical Result Call ed to and read back by: HALIMA CHAVEZ at: 07/23/2023 11:41:15 by:[id number] Protein [Mass/volume] in Ser um or PlasmaOrdered By: Imad Asaad on 07-23-2023 Protein [Mass/Vol] 7.3 g/dL 6.4-8.9 [facility] RBC Auto (Bld) [#/Vol]Ordere d By: Imad Asaad on 07-23-2023 RBC (Bld) [#/Vol] 5.46 10*6/uL 3.90-5.60 [facility] Serum or plasma albumin/glob ulin mass ratioOrdered By: Imad Asaad on 07-23-2023 Albumin/Globulin [Mass ratio] 1.5 {ratio} [facility] Serum or plasma anion gap de terminationOrdered By: Imad Asaad on 07-23-2023 Anion gap [Moles/Vol] 11.8 mmol/L 6.0-15.0 [facility] Sodium [Moles/volume] in Ser um or PlasmaOrdered By: Imad Asaad on 07-23-2023 Sodium [Moles/Vol] 141 mmol/L 136-145 [facility] US abdomen completeon 2023 US abdomen complete [facility] Main [address] [address] Ultrasound Report Signed Patient: Wood Horn MR#: [id number] : 1995 Acct:[id number] Age/Sex: 27 / M ADM Date: 07/23/23 Loc: Room: Type: [facility] Attending Dr: Carlos Johnson MD Ordering Provider: [...] evidence of aortic aneurysm. Impression dictated by: Estaurdo Saravia M.D.07/23/2023 10:53 AM Dictation Location: [place] [address] Tech: Marlee Funez Transcribed By: ORLANDO 07/23/23 1053 Dictated By: Estuardo Saravia II, MD 07/23/23 1047 Signed By: 07/23/23 1053 Normal [facility] Urea nitrogen [Mass/volume] in Serum or PlasmaOrdered By: Carlos Johnson on 07-23-2023 Urea nitrogen [Mass/Vol] 13 mg/dL 7-25 [facility] WBC Auto (Bld) [#/Vol]Ordere d By: Imad Asaad on 07-23-2023 WBC (Bld) [#/Vol] 9.0 10*3/uL 4.1-10.5 [facility] Magnesiumon 11-25-2022 Magnesium [Mass/Vol] 1.1 mg/dL [facility] [employer] Other Renal Function Panelon 11-25 Albumin [Mass/Vol] 3.9 g/dL [facility] [employer] Other Calcium [Mass/Vol] 8.8 mg/dL [facility] [employer] Other Chloride [Moles/Vol] 96 mmol/L [facility] [employer] Other CO2 [Moles/Vol] 32.9 mmol/L [facility] [employer] Other Creatinine [Mass/Vol] 0.83 mg/dL [facility] [employer] Other Glucose [Mass/Vol] 138 mg/dL [facility] [employer] Other Phosphate [Mass/Vol] 4.0 mg/dL [facility] [employer] Other Potassium [Moles/Vol] 2.4 mmol/L [facility] [employer] Other Sodium [Moles/Vol] 139 mmol/L [facility] [employer] Other Urea nitrogen [Mass/Vol] 13.0 mg/dL [facility] [employer] Other Renal Function Panel [facility] [employer] Other Renal Function Panel >60 [employer] Other GLYCOHEMOGLOBIN A1Con 2022 ADA RECOMMENDATION SEE BELOW Normal [facility] Comment on above: Result Comment: ADA RECOMMENDED LIMIT 4.0 - 6.0 ADA THERAPEUTIC TARGET < 7.0 ACTION SUGGESTED > 7.0 Performed By: #### A 1C #### [facility] [address] [place] [address] Dr. Jossue Centeno Glucose [Mass/Vol] 108 mg/dL Normal [facility] Comment on above: Performed By: #### A 1C #### [facility] [address] [place] [address] Dr. Jossue Centeno HbA1c (Bld) [Mass fraction] 5.4 % Normal 4.5-6.2 [facility] Comment on above: Performed By: #### A 1C #### [facility] [address] [place] [address] Dr. Jossue Centeno Outside Recordson 01-28-2022 Outside Records [id number] .00OTGTIFF Normal [facility] CBC AUTO DIFFon 01-27-2022 BASO # 0.1 103/ul Normal 0.0-0.1 [facility] Comment on above: Performed By: #### C BC #### [facility] [address] [place] [address] Dr. Jossue Centeno Basophils/100 WBC (Bld) 0.8 % Normal 0.2-2.0 [facility] Comment on above: Performed By: #### C BC #### [facility] [address] [place] [address] Dr. Jossue Centeno EO # 0.6 103/ul Normal 0.0-0.7 [facility] Comment on above: Performed By: #### C BC #### [facility] [address] [place] [address] Dr. Jossue Centeno Eosinophils/100 WBC (Bld) 5.8 % Normal 0.9-7.0 [facility] Comment on above: Performed By: #### C BC #### [facility] [address] [place] [address] Dr. Jossue Centeno Erythrocyte distribution width (RBC) [Ratio] 12.4 % Normal 11.0-15.0 [facility] Comment on above: Performed By: #### C BC #### [facility] [address] [place] [address] Dr. Jossue Centeno Hematocrit (Bld) [Volume fraction] 47.4 % Normal 42.0-54.0 [facility] Comment on above: Performed By: #### C BC #### [facility] [address] [place] [address] Dr. Jossue Centeno Hemoglobin (Bld) [Mass/Vol] 16.7 g/dL Normal 14.0-18.0 [facility] Comment on above: Performed By: #### C BC #### [facility] [address] [place] [address] Dr. Jossue Centeno IG # 0.02 10e3/ul Normal 0.00-0.03 [facility] Comment on above: Performed By: #### C BC #### [facility] [address] [place] [address] Dr. Jossue Centeno IG % 0.2 % Normal 0.0-0.5 [facility] Comment on above: Performed By: #### C BC #### [facility] [address] [place] [address] Dr. Jossue Centeno LYMPH # 2.2 103/ul Normal 1.2-3.8 [facility] Comment on above: Performed By: #### C BC #### [facility] [address] [place] [address] Dr. Jossue Centeno Lymphocytes/100 WBC (Bld) 23.1 % Normal 20.5-60.0 [facility] Comment on above: Performed By: #### C BC #### [facility] [address] [place] [address] Dr. Jossue Centeno MANUAL DIFF REQ NO Normal [facility] Comment on above: Performed By: #### C BC #### [facility] [address] [place] [address] Dr. Jossue Centeno MCH (RBC) [Entitic mass] 28.2 pg Normal 25.9-34.0 [facility] Comment on above: Performed By: #### C BC #### [facility] [address] [place] [address] Dr. Jossue Centeno MCHC (RBC) [Mass/Vol] 35.2 g/dL Normal 29.9-35.2 [facility] Comment on above: Performed By: #### C BC #### [facility] [address] [place] [address] Dr. Jossue Centeno MCV (RBC) [Entitic vol] 79.9 fL Critically low 80.0-94. 0 [facility] Comment on above: Performed By: #### C BC #### [facility] [address] [place] [address] Dr. Jossue Centeno MONO # 0.7 103/ul Normal 0.3-0.8 [facility] Comment on above: Performed By: #### C BC #### [facility] [address] [place] [address] Dr. Jossue Centeno Monocytes/100 WBC (Bld) 7.6 % Normal 1.7-12.0 [facility] Comment on above: Performed By: #### C BC #### [facility] [address] [place] [address] Dr. Jossue Centeno NEUT # 5.9 103/ul Normal 1.4-6.5 [facility] Comment on above: Performed By: #### C BC #### [facility] [address] [place] [address] Dr. Jossue Centeno Neutrophils/100 WBC (Bld) 62.5 % Normal 43.0-75.0 [facility] Comment on above: Performed By: #### C BC #### [facility] [address] [place] [address] Dr. Jossue Centeno Platelet mean volume (Bld) [Entitic vol] 8.5 fL Critically low 9.5-13.5 [facility] Comment on above: Performed By: #### C BC #### [facility] [address] [place] [address] [address] Jossue Centeno PLT 335 103/ul Normal 150-450 [facility] Comment on above: Performed By: #### C BC #### [facility] [address] [place] [address] Dr. Jossue Centeno RBC 5.93 106/ul Normal 4.70-6.10 [facility] Comment on above: Performed By: #### C BC #### [facility] [address] [place] [address] [address] Jossue Centeno WBC 9.5 103/ul Normal 4.0-11.0 [facility] Comment on above: Performed By: #### C BC #### [facility] [address] [place] [address] Dr. Jossue Centeno MAGNESIUMon 01-27-2022 Magnesium [Mass/Vol] 1.5 mg/dL Critically low 1.8-2.4 [facility] Comment on above: Performed By: #### K #### [facility] [address] [place] [address] Dr. Jossue Centeno PROF 14(COMP METB)on 022 Albumin [Mass/Vol] 4.1 g/dL Normal 3.4-5.0 [facility] Comment on above: Performed By: #### M G, CMP #### [facility] [address] [place] [address] Dr. Jossue Centeno Albumin/Globulin [Mass ratio] 1.0 {ratio} Normal [facility] Comment on above: Performed By: #### M G, CMP #### [facility] [address] [place] [address] Dr. Jossue Centeno ALP [Catalytic activity/Vol] 107 U/L Normal 46-116 [facility] Comment on above: Performed By: #### M G, CMP #### [facility] [address] [place] [address] Dr. Jossue Centeno ALT [Catalytic activity/Vol] 50 U/L Normal 16-63 [facility] Comment on above: Performed By: #### M G, CMP #### [facility] [address] [place] [address] [address] Jossue Centeno Anion gap [Moles/Vol] 12.1 mmol/L Normal [facility] Comment on above: Performed By: #### M G, CMP #### [facility] [address] [place] [address] [address] Jossue Centeno AST [Catalytic activity/Vol] 25 U/L Normal 15-37 [facility] Comment on above: Performed By: #### M G, CMP #### [facility] [address] [place] [address] [address] Jossue Centeno Bilirubin [Mass/Vol] 0.6 mg/dL Normal 0.2-1.0 [facility] Comment on above: Performed By: #### M G, CMP #### [facility] [address] [place] [address] [address] Jossue Centeno Calcium [Mass/Vol] 9.3 mg/dL Normal 8.5-10.1 [facility] Comment on above: Performed By: #### M G, CMP #### [facility] [address] [place] [address] [address] Jossue Centeno Chloride [Moles/Vol] 97 mmol/L Critically low 98-107 [facility] Comment on above: Performed By: #### M G, CMP #### [facility] [address] [place] [address] [address] Jossue Centeno CO2 [Moles/Vol] 32.1 mmol/L Critically high 21.0-32.0 [facility] Comment on above: Performed By: #### M G, CMP #### [facility] [address] [place] [address] [address] Jossue Centeno Creatinine [Mass/Vol] 0.76 mg/dL Normal 0.70-1.30 [facility] Comment on above: Performed By: #### M G, CMP #### [facility] [address] [place] [address] [address] Jossue Centeno EGFR-AF ANDORRAN >60 Normal >=[address] [facility] Comment on above: Performed By: #### M G, CMP #### [facility] [address] [place] [address] [address] Jossue Centeno EGFR-NON AF ANDORRAN >60 Normal >=60 [facility] Comment on above: Performed By: #### M G, CMP #### [facility] [address] [place] [address] [address] Jossue Centeno Globulin (S) [Mass/Vol] 4.1 g/dL Normal [facility] Comment on above: Performed By: #### M G, CMP #### [facility] [address] [place] [address] [address] Jossue Centeno Glucose [Mass/Vol] 92 mg/dL Normal 74-106 [facility] Comment on above: Performed By: #### M G, CMP #### [facility] [address] [place] [address] [address] Jossue Centeno Potassium [Moles/Vol] 3.2 mmol/L Critically low 3.5-5.1 [facility] Comment on above: Performed By: #### M G, CMP #### [facility] [address] [place] [address] [address] Jossue Centeno Protein [Mass/Vol] 8.2 g/dL Normal 6.4-8.2 [facility] Comment on above: Performed By: #### M G, CMP #### [facility] [address] [place] [address] [address] Jossue Centeno Sodium [Moles/Vol] 138 mmol/L Normal 136-145 [facility] Comment on above: Performed By: #### M G, CMP #### [facility] [address] [place] [address] [address] Jossue Centeno Urea nitrogen [Mass/Vol] 11.0 mg/dL Normal 7.0-18.0 [facility] Comment on above: Performed By: #### M G, CMP #### [facility] [address] [place] [address] [address] Jossue Centeno Urea nitrogen/Creatinine [Mass ratio] 14.5 mg/mg Normal [facility] Comment on above: Performed By: #### M G, CMP #### [facility] [address] [place], [place] [address] Dr. Jossue Centeno Outside Recordson 12-08-2021 Outside Records [id number] .00OTGTIFF [facility] Office Visit (Cardiology)on 12-02-2021 Follow-up visit Diagnoses/Problems Assessed Atypical chest pain (786.59) (R07.89) Cardiac enzymes elevated (790.5) (R74.8) Hypokalemia (276.8) (E87.6) Hypomagnesemia (275.2) (E83.42) Class 1 obesity with body mass index (BMI) of 31.0 to 31.9 in adult (278.00,V85.31) (E66.9,Z68.31) Never a smoker Orders Atypical chest pain Echocardiogram; Status:Hold For - Scheduling,Retrospect pratik Authorization; Requested for:[id number]; Atypical chest pain, Cardiac enzymes elevated, Hypokalemia, Hypomagnesemia Cardiac Stress Test; Status:Hold For - Scheduling,Retrospect pratik Authorization; Requested for:[id number]; Class 1 obesity with body mass index (BMI) of 31.0 to 31.9 in adult Healthy Weight Tips; Status:Complete - Retrospective Authorization; Done: [id number] SocHx: Never a smoker Tobacco Use Screening; Status:Complete; Done: [id number] Tobacco Use Screening; Status:Complete; Done: [id number] Tobacco Use Screening; Status:Complete; Done: [id number] Patient Instructions By signing my name below, [...] interventions and denies any congenital cardiac history. Impression/recommenda tions: Highly doubt significant coronary disease however we [...] negative for complaint. Vitals Vital Signs Recorded: [id number] 09:05AMRecorded: [id number] 09:04AM Vyagygme157, LUE, Pxdejjz668, RUE, Sitting Jtxgnpyan62, LUE, Jwyoigx68, RUE, Sitting Heart Rate66, Apical Height5 ft 10 in Lykaju144 lb BMI Sokhicvaor75.14 kg/m2 BSA Calculated2.16 Tobacco Useb) No PHQ-2 [...] 2+ bilate (more content not included)... [facility] Tobacco Screening.on 022 Adult depression screening assessment [facility] Work Phone: Fall risk assessment c) Not medically indicated [facility] Work Phone: Tobacco use status [facility] b) No [facility] Work Phone: POTASSIUMon 11-16-2021 Potassium [Moles/Vol] 3.8 mmol/L Normal 3.5-5.1 [facility] Comment on above: Performed By: #### K #### [facility] [address] [place] [address] Dr. Jossue Centeno Lab - Other Lab Resultson Lab - Other Lab Results [id number] .00OTGTIFF Normal [facility] POTASSIUMon 11-12-2021 Potassium [Moles/Vol] 3.7 mmol/L Normal 3.5-5.1 [facility] Comment on above: Performed By: #### K #### [facility] [address] [place] [address] Dr. Jossue Centeno HEMOGRAM AND PLATELon 2021 Hematocrit (Bld) [Volume fraction] 45.0 % Normal 42.0-54.0 [facility] Comment on above: Performed By: #### H H #### [facility] [address] [place] [address] Dr. Jossue Centeno Hemoglobin (Bld) [Mass/Vol] 15.1 g/dL Normal 14.0-18.0 [facility] Comment on above: Performed By: #### H H #### [facility] [address] [place] [address] Dr. Jossue Centeno MCH (RBC) [Entitic mass] 27.9 pg Normal 25.9-34.0 [facility] Comment on above: Performed By: #### H H #### [facility] [address] [place] [address] Dr. Jossue Centeno MCHC (RBC) [Mass/Vol] 33.6 g/dL Normal 29.9-35.2 [facility] Comment on above: Performed By: #### H H #### [facility] [address] [place] [address] Dr. Jossue Centeno MCV (RBC) [Entitic vol] 83.2 fL Normal 80.0-94.0 [facility] Comment on above: Performed By: #### H H #### [facility] [address] [place] [address] Dr. Jossue Centeno PLT 299 103/ul Normal 150-450 [facility] Comment on above: Performed By: #### H H #### [facility] [address] [place] [address] Dr. Jossue Centeno RBC 5.41 106/ul Normal 4.70-6.10 [facility] Comment on above: Performed By: #### H H #### [facility] [address] [place] [address] Dr. Jossue Centeno WBC 10.2 103/ul Normal 4.0-11.0 [facility] Comment on above: Performed By: #### H H #### [facility] [address] [place] [address] Dr. Jossue Centeno MAGNESIUMon 11-11-2021 Magnesium [Mass/Vol] 1.3 mg/dL Critically low 1.8-2.4 [facility] Comment on above: Performed By: #### K #### [facility] [address] [place] [address] Dr. Jossue Centeno Outside Recordson 11-11-2021 Outside Records [id number] .00OTGTIFF Normal [facility] RENAL FUNCTION PANELon 11-11 Albumin [Mass/Vol] 4.1 g/dL Normal 3.4-5.0 [facility] Comment on above: Performed By: #### K #### [facility] [address] [place] [address] Dr. Jossue Centeno Calcium [Mass/Vol] 9.4 mg/dL Normal 8.5-10.1 [facility] Comment on above: Performed By: #### K #### [facility] [address] [place] [address] Dr. Jossue Centeno Chloride [Moles/Vol] 102 mmol/L Normal 98-107 [facility] Comment on above: Performed By: #### K #### [facility] [address] [place] [address] Dr. Jossue Centeno CO2 [Moles/Vol] 30.7 mmol/L Normal 21.0-32.0 [facility] Comment on above: Performed By: #### K #### [facility] [address] [place] [address] Dr. Jossue Centeno Creatinine [Mass/Vol] 0.83 mg/dL Normal 0.70-1.30 [facility] Comment on above: Performed By: #### K #### [facility] [address] [place] [address] Dr. Jossue Centeno EGFR-AF ANDORRAN >60 Normal >=[address] [facility] Comment on above: Performed By: #### K #### [facility] [address] [place] [address] Dr. Jossue Centeno EGFR-NON AF ANDORRAN >60 Normal >=60 [facility] Comment on above: Performed By: #### K #### [facility] [address] [place] [address] Dr. Jossue Centeno Glucose [Mass/Vol] 94 mg/dL Normal 74-106 [facility] Comment on above: Performed By: #### K #### [facility] [address] [place] [address] Dr. Jossue Centeno Phosphate [Mass/Vol] 2.4 mg/dL Critically low 2.6-4.7 [facility] Comment on above: Performed By: #### K #### [facility] [address] [place] [address] Dr. Jossue Centeno Potassium [Moles/Vol] 5.7 mmol/L Critically high 3.5-5.1 [facility] Comment on above: Performed By: #### K #### [facility] [address] [place] [address] Dr. Jossue Centeno Sodium [Moles/Vol] 139 mmol/L Normal 136-145 [facility] Comment on above: Performed By: #### K #### [facility] [address] [place] [address] Dr. Jossue Centeno Urea nitrogen [Mass/Vol] 13.0 mg/dL Normal 7.0-18.0 [facility] Comment on above: Performed By: #### K #### [facility] [address] [place] [address] Dr. Jossue Centeno CARDIAC ESTUARDO 3-6on 2 CK [Catalytic activity/Vol] 536 U/L Critically high 39-308 [facility] Comment on above: Performed By: #### K #### [facility] [address] [place] [address] Dr. Jossue Centeno CK.MB [Mass/Vol] 3.09 ng/mL Normal <=3.[address] [facility] Comment on above: Performed By: #### K #### [facility] [address] [place] [address] Dr. Jossue Centeno HSTROP 179.4 pg/mL Critically high 4.0-76.[address] [facility] Comment on above: Result Comment: CUT- OFF POINTS HAVE BEEN ESTABLISHED BASED ON THE FOURTH UNIVERSAL DEFINITIONS OF MYOCARDIAL INFARCTION. THE UPPER REFERENCE LIMIT (URL) OF TROPONIN, DEFINED THE 99TH PERCENTILE OF cTnI DISTRIBUTION IN A REFERENCE POPULATION, HAS BEEN CONFIRMED THE DECISION THRESHOLD FOR [place] DIAGNOSIS. TEST REPEATED. CRITICAL VALUE VERIFIED Performed By: #### K #### [facility] [address] [place] [address] Dr. Jossue Centeno CARDIAC ESTUARDO ADMITon 022 CK [Catalytic activity/Vol] 607 U/L Critically high 39-308 [facility] Comment on above: Performed By: #### B MARY QUEEN #### [facility] [address] [place] [address] Dr. Jossue Centeno CK.MB [Mass/Vol] 3.82 ng/mL Critically high <=3.60 [facility] Comment on above: Result Comment: TEST REPEATED. CRITICAL VALUE VERIFIED Performed By: #### B MARY QUEEN #### [facility] [address] [place] [address] Dr. Jossue Centeno HSTROP 187.8 pg/mL Critically high 4.0-76.1 [facility] Comment on above: Result Comment: CUT- OFF POINTS HAVE BEEN ESTABLISHED BASED ON THE FOURTH UNIVERSAL DEFINITIONS OF MYOCARDIAL INFARCTION. THE UPPER REFERENCE LIMIT (URL) OF TROPONIN, DEFINED THE 99TH PERCENTILE OF cTnI DISTRIBUTION IN A REFERENCE POPULATION, HAS BEEN CONFIRMED THE DECISION THRESHOLD FOR [place] DIAGNOSIS. TEST REPEATED. CRITICAL VALUE VERIFIED Performed By: #### B MARY QUEEN #### [facility] [address] [place] [address] Dr. Jossue Centeno MELVI 100 ng/mL Critically high 16-96 [facility] Comment on above: Performed By: #### B MARY QUEEN #### [facility] [address] [place] [address] Dr. Jossue Centeno CBC AUTO DIFFon 11-08-2021 BASO # 0.1 103/ul Normal 0.0-0.1 [facility] Comment on above: Performed By: #### K #### [facility] [address] [place] [address] Dr. Jossue Centeno Basophils/100 WBC (Bld) 0.5 % Normal 0.2-2.0 [facility] Comment on above: Performed By: #### K #### [facility] [address] [address] [address] Jossue Centeno EO # 0.2 103/ul Normal 0.0-0.7 [facility] Comment on above: Performed By: #### K #### [facility] [address] [place] [address] Dr. Jossue Centeno Eosinophils/100 WBC (Bld) 1.3 % Normal 0.9-7.0 [facility] Comment on above: Performed By: #### K #### [facility] [address] [place] [address] Dr. Jossue Centeno Erythrocyte distribution width (RBC) [Ratio] 12.6 % Normal 11.0-15.0 [facility] Comment on above: Performed By: #### K #### [facility] [address] [place] [address] Dr. Jossue Centeno Hematocrit (Bld) [Volume fraction] 41.4 % Critically low 42.0-54.0 [facility] Comment on above: Performed By: #### K #### [facility] [address] [place] [address] Dr. Jossue Centeno Hemoglobin (Bld) [Mass/Vol] 14.5 g/dL Normal 14.0-18.0 [facility] Comment on above: Performed By: #### K #### [facility] [address] [place] [address] Dr. Jossue Centeno IG # 0.05 10e3/ul Critically high 0.00-0.03 [facility] Comment on above: Performed By: #### K #### [facility] [address] [place] [address] Dr. Jossue Centeno IG % 0.4 % Normal 0.0-0.5 [facility] Comment on above: Performed By: #### K #### [facility] [address] [place] [address] Dr. Jossue Centeno LYMPH # 1.6 103/ul Normal 1.2-3.8 [facility] Comment on above: Performed By: #### K #### [facility] [address] [place] [address] Dr. Jossue Centeno Lymphocytes/100 WBC (Bld) 12.4 % Critically low 20.5-60.0 [facility] Comment on above: Performed By: #### K #### [facility] [address] [place] [address] Dr. Jossue Centeno MANUAL DIFF REQ NO Normal [facility] Comment on above: Performed By: #### K #### [facility] [address] [place] [address] Dr. Jossue Centeno MCH (RBC) [Entitic mass] 28.3 pg Normal 25.9-34.0 [facility] Comment on above: Performed By: #### K #### [facility] [address] [place] [address] Dr. Jossue Centeno MCHC (RBC) [Mass/Vol] 35.0 g/dL Normal 29.9-35.2 [facility] Comment on above: Performed By: #### K #### [facility] [address] [place] [address] Dr. Jossue Centeno MCV (RBC) [Entitic vol] 80.7 fL Normal 80.0-94.0 [facility] Comment on above: Performed By: #### K #### [facility] [address] [place] [address] Dr. Jossue Centeno MONO # 0.9 103/ul Critically high 0.3-0.8 [facility] Comment on above: Performed By: #### K #### [facility] [address] [place] [address] Dr. Jossue Centeno Monocytes/100 WBC (Bld) 6.9 % Normal 1.7-12.0 [facility] Comment on above: Performed By: #### K #### [facility] [address] [place] [address] Dr. Jossue Centeno NEUT # 10.3 103/ul Critically high 1.4-6.5 [facility] Comment on above: Performed By: #### K #### [facility] [address] [place] [address] Dr. Jossue Centeno Neutrophils/100 WBC (Bld) 78.5 % Critically high 43.0-75.0 [facility] Comment on above: Performed By: #### K #### [facility] [address] [place] [address] Dr. Jossue Centeno Platelet mean volume (Bld) [Entitic vol] 9.5 fL Normal 9.5-13.5 [facility] Comment on above: Performed By: #### K #### [facility] [address] [place] [address] Dr. Jossue Centeno PLT 306 103/ul Normal 150-450 [facility] Comment on above: Performed By: #### K #### [facility] [address] [place] [address] Dr. Jossue Centeno RBC 5.13 106/ul Normal 4.70-6.10 [facility] Comment on above: Performed By: #### K #### [facility] [address] [place] [address] Dr. Jossue Centeno WBC 13.1 103/ul Critically high 4.0-11.0 [facility] Comment on above: Performed By: #### K #### [facility] [address] [place] [address] Dr. Jossue Centeno LIVER PROFILEon 11-08-2021 Albumin [Mass/Vol] 3.8 g/dL Normal 3.4-5.0 [facility] Comment on above: Performed By: #### L IVER #### [facility] [address] [place] [address] Dr. Jossue Centeno Albumin/Globulin [Mass ratio] 1.1 {ratio} Normal [facility] Comment on above: Performed By: #### L IVER #### [facility] [address] [place] [address] Dr. Jossue Centeno ALP [Catalytic activity/Vol] 91 U/L Normal 46-116 [facility] Comment on above: Performed By: #### L IVER #### [facility] [address] [place] [address] Dr. Jossue Centeno ALT [Catalytic activity/Vol] 69 U/L Critically high 16-63 [facility] Comment on above: Performed By: #### L IVER #### [facility] [address] [address] [address] Jossue Centeno AST [Catalytic activity/Vol] 40 U/L Critically high 15 [facility] Comment on above: Performed By: #### L IVER #### [facility] [address] [address] [address] Jossue Centeno BILI, CONJUGATED 0.1 mg/dL Normal 0.0-0.2 [facility] Comment on above: Performed By: #### L IVER #### [facility] [address] [address] [address] Jossue Centeno Bilirubin [Mass/Vol] 0.6 mg/dL Normal 0.2-1.0 [facility] Comment on above: Performed By: #### L IVER #### [facility] [address] [place] [address] Dr. Jossue Centeno Globulin (S) [Mass/Vol] 3.4 g/dL Normal [facility] Comment on above: Performed By: #### L IVER #### [facility] [address] [address] [address] Jossue Centeno Protein [Mass/Vol] 7.2 g/dL Normal 6.4-8.2 [facility] Comment on above: Performed By: #### L IVER #### [facility] [address] [address] [address] Jossue Centeno PROF CHEM 8 (BAS METB)on Anion gap [Moles/Vol] 10.3 mmol/L Normal [facility] Comment on above: Performed By: #### B MP, CMADM #### [facility] [address] [place] [address] Dr. Jossue Centeno Calcium [Mass/Vol] 8.9 mg/dL Normal 8.5-10.1 [facility] Comment on above: Performed By: #### B MP, CMADM #### [facility] [address] [place] [address] Dr. Jossue Centeno Chloride [Moles/Vol] 97 mmol/L Critically low 98-107 [facility] Comment on above: Performed By: #### B MARY QUEEN #### [facility] [address] [address] [address] Jossue Centeno CO2 [Moles/Vol] 34.0 mmol/L Critically high 21.0-32.0 [facility] Comment on above: Performed By: #### B JI QUEENDM #### [facility] [address] [address] [address] Jossue Centeno Creatinine [Mass/Vol] 0.89 mg/dL Normal 0.70-1.30 [facility] Comment on above: Performed By: #### B MARY QUEEN #### [facility] [address] [place] [address] Dr. Jossue Centeno EGFR-AF ANDORRAN >60 Normal >=60 [facility] Comment on above: Performed By: #### B MARY QUEEN #### [facility] [address] [address] [address] Jossue Centeno EGFR-NON AF ANDORRAN >60 Normal >=60 [facility] Comment on above: Performed By: #### B MARY QUEEN #### [facility] [address] [address] [address] Jossue Centeno Glucose [Mass/Vol] 98 mg/dL Normal 74-106 [facility] Comment on above: Performed By: #### B MARY QUEEN #### [facility] [address] [address] [address] Jossue Centeno Potassium [Moles/Vol] 2.4 mmol/L Critically low 3.5-5.1 [facility] Comment on above: Result Comment: TEST REPEATED. CRITICAL VALUE VERIFIED Performed By: #### B MARY QUEEN #### [facility] [address] [address] [address] Jossue Centeno Sodium [Moles/Vol] 139 mmol/L Normal 136-145 [facility] Comment on above: Performed By: #### B MARY QUEEN #### [facility] [address] [place] [address] Dr. Jossue Centeno Urea nitrogen [Mass/Vol] 14.0 mg/dL Normal 7.0-18.0 [facility] Comment on above: Performed By: #### B MARY QUEEN #### [facility] [address] [place], [place] [address] Dr. Jossue Centeno Urea nitrogen/Creatinine [Mass ratio] 15.7 mg/mg Normal [facility] Comment on above: Performed By: #### B MARY QUEEN #### [facility] [address] [place], [place] [address] Dr. Jossue Centeno XR CHEST 2 Von [...] by: ONIEL WILSON Date: 2021-11-08 20:44 Normal [facility] Coding Summaryon 06-25-2021 Coding Summary HTMLBase 64 RleozkwbPZh5yMl+PGhlY WQ+MX3WALXzZ02kqRIuiB 3DS3rIMW4KKNUEMVJMYI0 LME9tzXL6DPegA7MapnVe WjxodVVfON09SLr0UBI0v ZbmFKyjxU5czCLhL2r3Uz RrIJ49nI59OJrmTBTjYqQ 3LjZpbjsgbWFy S9keJgBncNEyCii+PHRhY mxlIHdpZHRoPScxMDAlJy FheNqnXJ7aZw6gXJOrGYJ vbGxhcHNlOiBj y8okLZIkNMntFD3tdBdaW 0ZnyEE6MMAhk7e9Xg97uO I+SCOsSKQ9eQddADqjp19 8YbEeo2qnWCU1 mEHoOXbgQEL5H99gv6P5K ECyKTSgXSF0kIR9aY6riM jhmllqZ2JvgWQnQlH6EOY 9zXNldF7rlGgw yxijeG5yGiw+W44WRF4HF CWRDB0LMjz5L0QrIwiviD I+GF81UIGpEG40nEKxuKS dw9chyIw6FdOg VLVgOCC2aYzcPJuzf2RcP BBtE37uaPUaj0C4WGMczO rydBYdYaMgjXM3lD0qKGe ufyxup3egtlaa Baxlr5ewly47yI78X98cI KxwIYPoYWV0INSoVVEojT rodt1qjY8uFu2+FXxks1r go6oauEi1DvQt LKCwdiDckHbtKRT9q7BiE p72H9EjxTecm1ZvEvh9kg 64iGJdb7F9jNY5YLmtVXY umV4tMKauNjH0 FHSwNtGkhB23nUFkFCvdS z3cwDkmkWhtCU2aMTYwrh veWZFmlJ2fYWHdkGZnjWw aMX4aEHQzlrls j006DdBrRLK8YKUxiKBjL 8XxxN7cIsTyCCUbEAWbD0 LjmSAyIDacO161XAhhDcP 1VDImyoBqE7Oo AGStuFouQmR8r5M9Zz8Ba 8VporygOTS7VPfgUGYgFi N7EgNbYqP4F6ZyTax3ENO ctUrpPL3fD7Ph HSPmgqzcnctcaHO5RAQaL BHslT93nYAmURvoOc5pn4 G1m461AKQtRXWcgL61Nu6 udDogMTBwdCBU wJ0oidjcl7dbhryoDnVhS HBnVRp6BIf9GCVntDpzVo RdWAP9GlQ6EVV1qSRtsP5 qwTvjhgtxiC1n Oyc+W36uaQ9fSRG3QCE7j rvmRBAbwuBrUQ61ZE66W0 RyPjwvdGFibGU+PGRpdiB cjKvtRZ0cIiDq j1klb6AmRHboM9FiMYPkF UbzDil9XCWbKUV7dTF7qL 0jUEToNEeds6R9mMC7W6X afgAqmx7dj4dv ZDYkXBqrB93zgZCpw9P0F IWuoMC0BMLwfSynWmCrvL 93Oyc+QWJafYrdm1GdWmv hd9hry7jwmQq8 VtJsRMYvjzNurZszZTM3m 5TsQo74X73rGVleXBUdMF VmKIChYFTegMqsso8ejM5 wIi8+PGNvbCB3 cKB6vI6vNUXcWqQ9LNpsL 568MiDwoRGeOgchn7fmq6 qiiDe1XkGdMKRyciXpkKm lOQW2u3NxTa80 X14dBJfhYZQjMNGlBPSkE WQsdYesed1cdC9jVz9+PC 5qy0oebw27cJ15uPI+PHR cYGP8dPpcTGad BKXeoG0ePZmeVrM5AILcY eYokK07rCTvKPnrFm9kmO ugbSjgCY0jKKQweatju74 9TpGzm4mvIPLr sWRjITdsLIF7D97hr8W4G PQxRNWvUSZ3gYM0vQ4uxG lnbjogbGVmdDsgdmVydGl hVHadSYhxK624 IHRvcDsnPlBhdGllbnQgT xMzGCy4A4XzMtb1PVHyhX qoXN3vdJBdEBndHo4etBl fdTvqJN6sWFHe ovxrj459YvBra1ufRJUvx IIwMIpmLXH3C95xb7V2PI DjRIOlASM1xZI5oJ3suYq nbjogbGVmdDsg tmDnzFyqBEtyUDcwC186B HRvcDsnPkJpcnRoIERhdG X1GP53HX44kHTzd4P6fKZ 7M3HaWDVcatmx qzwaaDG2AZBoUBIllW71E v9zsKliEk7pGSRnPSF4VX VflAWbU4LxzT3nPbUnEGJ zEZAzS7NbuMCy DYfpC230ABweNtY1YWVln uToR6MmJPUkyWdsHzM9k3 Q3Kr1GV9R5SR18HD11lPK ug1Z7wRN9P3Hz GOVoamjxrrdlpDP8ENIuO MVydI69Fx8jhEyfOf1rCH QpFYP0NCZagNVnF9KqgX1 yOiAjMDAwMDAw Y2PkuABhBKmvA344TOzvR kQ4KZIanaKaO2AdBRJpmV ebBhU4a6Q7Rl9FQJa2DO4 7PR05wIRvd6C6 nHP3P1LmNKPevozaoxwrx MM6OABnWHPglY64Rt0mzZ znUu9uGQXmWNQ5TFRciEI gM1MkqR4eWvNm TBNcVYQjR4DycTPsUJrqO 121AAymTxG9ERCqqwBeN2 DgUIElnKzsCzL8m4R5Qq4 RPHXxAA94SQL7 iPJ8JC29XK96Y4LaOrzbh GFibGU+PHRhYmxlIHdpZH RoPScxMDAlJyBzdHlsZT0 jBd9mCMOrEXAf sNdctIXcHaEpp3soKDGcL GcxNH2ofRcaO7HeqDA1SD Iwr4l9Ti80T16pQ3RccRF +DFFbpZS7lBN7 iD3xOiZfNkQ9DGcoO212Y oGjcHBiYrpun8zxu9eplJ p6WuO7INRvjuWjxEivRXT 6g8TnQr27T89u IHdpZHRoPSIxNSUiIHZhb Jkbba0xjI0cOf2+PGNvbC Z1tSI0uC3zJzDpSaK1YJq bA928NoHxkCFf Ishkq6cov2qhhOj6UpLuK BLyjnHpvWtcERJ8g4TpSk 94Y9FxmIiak8SsMzm6qe7 5dPTma9F8wEV2 C3YuYJWzfjxmgULnuTbsI E7cIAJepgexAENjpX0xKK DnP0n4KgHwFaI1WVmrR5P btyN7KGVraCKq FSpbYKO7P54ji2Z0DHXbD KVhQBG7nFZ9dY5jjQrune ogbGVmdDsgdmVydGljYWw nAWklE386JTDd aQcgYFYrjY5jBLXqzRSsq TepAN2dQHRvngziPvHBK5 ZLNLXABqaGNPXEBCO2A0H sSsq3XCYjvMfe ME1hoLDzQZzwCo0ssCfcs IekAV5bFUTubgoqKQUufI 7hOBWsaSUzeYmePO6yNTO vqibqz442UhTp AHV5PKKqnKIhR3YlfS0sI qRgNFIzDNQcG5UgvSWvVU bgQ377QFrnAbG6PEQujlR vU7PnTNThyEgh ZpI2r1Z5Wb8dXm9mFY2bO To4HL24EH26hZLbp4B9cV C0D1MdUFXfzamwcqbmcJF 8VFZkMKVxiC02 xDPxVKqbQa1us8L3q159K FFcVFNyeH52Qv4dlYlqVV JyeACXqQ9zeoker6wxpfb gIzAwMDAwMDt0 JPg3VOBqdTirXvEzAWI2K eW2YXA2qBVzjA3xzVfwzp vhpY4vAiy+MjUgWWVhcnM 9H9MbBwc2CEFo qByxAH7bfSXzSSkpAf5yf HjcxSdpUW1bASGinpaeMM NpgS2mMVHepCNplCnpSC8 pCJObywgkd391 OqYtRJG8NKPylNTtO3Heo C7oGcAbMQOlAEErM3WkfO GqHRcgM053QOreJrS2PRJ dzsEaD1ZqGEBc aMotPjW3q8X2Qw3CDTqVM V27GL94hOByg7O1hHA0Q2 XqFITlyfaziasopOG1HPP eUMFpwC00qKNd CIsmEw8da0X7k688CVHjS PEbvJ72Sy6vnBnbQUNhzA QGqE6eopglb8qqhcsiOnX qYWXvRAp3JEy8 KXZzoAreQgQuFOY2EaK3K RB8hHUfvF5gpAqnfgtmsH 9wOyc+W2U6C2KaKqpdeBE +EF89DHVdAK96 lLMpoWGqx8vauFd9WxVnZ GKyOXU0zEayBAicw0AoTD QtL86gwIPpz2E5ZKInbKo hcHNlOyBlbXB0 jD1hFQoixuhlc8hwvefwI cpnl2wmcr44bN14A50kKG dpZHRoPSIzMCUiIHZhbGl bdu3giJ9cRo1+ BXJvgEJ8xFR4wY2zGvFrB lZ1WGlxG811WqWgjDNoBq wuu2lmc7sktFg6EeBsXXX gdmFsaWduPSJ0 g6KxKd84K97nBBccHROdE KXbYOUfWYLgiVdyur6mgW 9wIi8+JJ5xh5ovwn75yA1 8dHI+PHRkIHN0 xOhcROgiRBRvsS0zTJviI wE0TSUiRnDmeF97rVRtEE unCi7qkFnkzLxtNX5yHAS ovzflr943HpWo p3hdTTKtqIQdWWwkCJV3Q 68cu4E5DNWsWHQgADQ3zP F5tZ6niJdzwtnvdWUncZz gdmVydGljYWwt PBrzQ351APJtiJevGfEku CVvT7zcyhBYOO3sKqppjZ Q+KMCzYGT0bVhiRPhuCJM yvA0qITWuT6e7 SwIfQpS5QIuaD7ArkfS8A VBuzSGcISCdvATOkN3hwn xkv3fvugkbXkHqNNVfLUo 3MCl7OCAraPac FiXpGYQ4IrB1IQB4iVFha K9vpJflukmidD2oEof+Rk lOOjwvdGQ+LXEpDQM6aLy fJSunFNArkA2y TGCuG5o6GtRgYqG5GHxfY 6RtqvY0UVHgdFYmRVOsdG YUdD8cmuupp3mynkjnWfD zRLFqHEr7YAf0 SICnuTtcRcUaPZF4MwL9C LU4uJJydN8cvFgzqftmvN 9wOyc+TVJOOjwvdGQ+PHR mCJV0oJpkTXgt UYIuuB0zSHFkJ1m9NzVuR iL4RNsaY5TvdhB3BKOhcC OoESZhqPAYzY2dxhdmi1i vcjogIzAwMDAw QMp6OWv4VLRjbWhyFkSoY DK5GjT9PEQ4mZLymY8mzQ lvkkniyP0xXtf+GKK4ZUT 0BR93BP62Z0Qh PjwvdGFibGU+PHRhYmxlI HdpZHRoPScxMDAlJyBzdH rtMG3vKa0qVBDdJDVjsRt igGUcCmZvu2nj YXB (more content not included)... Normal [facility] XR Ankle Complete Righton XR Ankle [...] MD 06/25/21 1:50 pm Technologist: VINCENT MOTTA [facility] XR Foot 2 Views Righton 06-09 [...] MD 06/25/21 1:50 pm Technologist: VINCENT MOTTA [facility] Consent Formson 04-03-2021 Consent Forms [phone] 1 [id number] [facility] Coding Summaryon 03-27-2021 Coding Summary HTMLBase 64 GepsvekuNYp9vWr+PGhlY WQ+CN3XKHMqU77uqDAddB 2MM3eLZH2LTTKUIVRLSI4 GUR0amZJ2ZApxY7HubmRz JrndfEVgWY34QGd1YTP8c RmmMFkgmI4mdARaL6j5Ra WtVY03rV78CZqxKSOgDjD 3LjZpbjsgbWFy M7syGzExlGJjDje+PHRhY mxlIHdpZHRoPScxMDAlJy YekTmnAX4lTg4fONKvISR vbGxhcHNlOiBj v3buHWYhYVetBR0ilOhmL 3ZbnMT7JFUeh4s0Su66iQ I+GDCvQET1zKqyDPnrm11 9EiIbb6ptYXR6 oMNnIXorSLJ9V01wn3A3J DWxLUKzLFB3vWB9iM2boD huttxcA2GwbLAoBdZ4TUF 9fLIazJ0jhGcm hbyoxQ5oYhx+O73TYB9GW KJVRF4KGax0P1XtBbxfbJ I+OT81YTGtEM98cFJcuWQ zs5umjIz4IiGo GNTnQWF3nCfaCKkug4LwY HGcS33osSTdd4X7VPWjzJ zhiRTgRnZieKO8vO2hZOs shnhnx5crdxwm Hlbcn7sgip80fP13J41hN QzqLPAtWLV6VYDcAHUpbF nrap0axA5lFv7+GEytx6y if1kxfFs2XcHb GISagaLkhOcvTHF2a9PoL p28H6XhpItpn7IhDcf8nn 89hJNke6I4jFT4QCwlCFN zsC3qJAyjZwH5 AICfGgSslE49iDVwOGwkO c1ccKwwiLqlZO0hEPCbxl cvROEunT9tPYFxvMQjaFq mOF9mKBRffhyp f780WzEhWAJ4GCBmmIWpK 5CyoS8lExXfFUGuPNTdP6 XhiJVxQUwxW873LJmtPsK 4TJFuvrNcJ3Vn HWScpNutLaW3g4Y9Io9Ct 1IbrxtbUVC7GJqbHKCgJg A0WuRxWgR1R1XkUah8WKJ dzRkdEZ0eN6Lt QVLchfwmvywbhGV3PPSbB NMatK67uXXsHJvsFe6ex9 C9v698YNRkSXEqmV98Qn3 udDogMTBwdCBU dN6skhssa8qoaprjJrXrX PFmIVe2FLo1OFXuhYkwJn TjGUE4DqU1UPC9pJSkhH2 rgRajokioqE3p Oyc+T11cbV2tJIE7PHJ4c lgqHWZhtjSzLF04ZW18U2 RyPjwvdGFibGU+PGRpdiB bpHlcCX0dJzMs p1emu1YvDXyuU4SlMLFoB OfySwe6DWEhYHY1cMF6hY 7cWTFiITapm0D3fWQ1J4T ajrSbvn5lu4tp SVZnBPbjQ40jqJCgb0V2P FGqwMD6CFTdgYlpKtOtcD 93Oyc+BGQruUnbv0KlAtp eq0gze1ubcWx5 YuGaSXQpkdAylWhgTVF8h 0DcOc75T42kDDdfJDLtDY XwNITuRLIucFvrir3wsD0 wIi8+PGNvbCB3 lZF3nX9jQQSkIwK6ZMxcS 619AwZueMGfRxvkt8ppr3 hfvYt4GiHsMFYscaNelQa yWPH5m1CvCn95 Q69uKCzdMDYpHDViFLFfG CSmfUlyuv2xhD7rSp3+PC 0fg4eats46rO52tXY+PHR sZUI0hFxpVIzf TYUupB5qNAfnAxW4NAZyV gBeaE59mSZdSFjzXk1hlG zprFezBQ4yFWJqxyffq86 1BkSoi8aaPEAy kBLpIMveYKP1V08ba5D1W COwGHZzCDS5lYH4oA3tfI lnbjogbGVmdDsgdmVydGl zCLgsEUgeW229 IHRvcDsnPlBhdGllbnQgT qPmDGe8Q8CsDii0KIBwmV ugHR9blBUpQWnpPi7jmRr dmNuuAA7aTTMj oohgk912TnZhn9scGPKoi YJuRZnbAWM1D00lb8R7DC QkWLJqPIZ1kJV1qC9qdCq nbjogbGVmdDsg suYicBbvVGxdAQpoW185M HRvcDsnPkJpcnRoIERhdG V0OS97SS07dYVam5X8dQJ 4V1KrNZTvoxlz pgztrGA5DAIpBQRtpX14G m0bgFtjZn4vGPZfAYC0IJ AfzDUyX7XyhS2yMgKgQXS oDBIcC2GidOBz WZlhW383ZPhcQbJ2CKVdm sJzF9SaHUAarKmdZlN5u2 W0Pd0TZ1E0EJ72YF16kOU hq2L1bTP0R3Dp YDXjsyqpbijocJL1VZQnD GNpwM12Iw1rzKvtNh2fLQ XyIEZ8PANdhZFyP3PrbI3 yOiAjMDAwMDAw E8CukEMoQZjvY431QJnaD wT0HYVzdnKsM8ZyEWDciO bdNfQ0f7C1Ga2HGDb0SM0 2WB96jBGwz0Y0 pRF3F1PsYZFighciysblh UP2CSFrPXPpdS83Bl0ceC njXr2dQHDiMDV0SYBcjPI nL8JsmH5sJcNb PERzRRLtA2GezGReMRowD 930XFqaMxA4LMDobaQrG7 BsKYJnyEdoCfA8g0Q8Ua2 XGSRsXA04JGR4 bIM1SJ11LN61M8OvRvzuo GFibGU+PHRhYmxlIHdpZH RoPScxMDAlJyBzdHlsZT0 vXx5fTHNzAGRy mGamxQWeTzCor1enILIeF WggMH2kzUcmO5VhcFX2NZ Whw6k2Pp35O02kT3JkbPL +AHIjqYM6aGQ1 rO9jLqYkWoZ1DJhgB084W yCyoTJrMuwcp3cjy3ewlK e7HzK6TMKlvoEvlHryITK 0j6TyBz22V19p IHdpZHRoPSIxNSUiIHZhb Igbbi6uhV9yRx3+PGNvbC V1yMX8kA4qFkCcYuS2EKb mR753ZaNflUFu Gniiu4nfp0ebyFu3BbDkL WEnciSfiVjaNXD5u7FeOu 05O7XrbIjog8OtUgb5ip2 8kBVmp5A3qRH2 A8XzUQVilsictKDdnUwuI N5gPKNuztmyWSFbcG8yDQ OsO1i1YgOqYpL6UHbuV0A uanP4QWMgmUOw AAelFGS2A58kt8R6GTAxQ PAeFXI0yOS1oO9pgWvmpa ogbGVmdDsgdmVydGljYWw nGLugL720FIJs yOlfNIMsbC1lZYEfdIWoz GndUO3jYYQfldcoHqMGI9 NQTFPERboAGQAVXXE7U9D sIip4GVYrgBmq XT2dlTJdIRlaVz6sgJwbz BpkXM4vCLRniigcOVJvlM 0pFYPvpIBiuTteTX9pAIT scgsru397DlSr RLW2EDBkuLLoS4EnaV2yI eCePLVaFUImK1TcvPQkPP ayD973RArlCoA5JUKsvnT wQ0ExIVTgfFuu BvO3f6L5In7wDj0nEB2wO Wi8YC64OI91qROhe3Y4xY P7N0DdMKBlwoxlztfrmUR 2BZXzBHEpnE37 zRNrBLwyUm4dr8W2h672R AKaBBRukA24Dk3pgLojWB DqiQBDjH6hdpxcm2bitxr gIzAwMDAwMDt0 KNn7JZSebOoxTnUcTSX2R rA1LPI5mGMpeD3zlCmulv izkV7lPyd+MjUgWWVhcnM 2K4DgEas3ERVe cWoeRD1dkMJeMGkyQe7pj FqqqOteQK9mQKNoeuslMH AknU8aOCRubOYgqIpxPL9 jBCIagpyqk999 MfNjOQH2MMLegYMhD1Vne A0hJrWyWHVkHOVmM5SvbE RiNJwaY572APgpEuD8IDY kewGiM7CaECOn iScrLbC5l9I6Gw9QZUwRG L81OQ38fDBtj9R4yZC7O6 ZyCMMnmsjslrnkyEG7GPL eKMCrvE73bZIx OPoeXs7no0R0i492FIIcT DLuuN46Tp7qnIvxZJRpqZ QKuS1jgvebp2zizhxvWxI uJIEyAUx6NMp6 XIMhmMjcZjRmAOY6KkB0D CU9oYCevI5tdRpeklhyoO 9wOyc+L7G6A7XnCtxucTS +EU76SJZrCV55 iOWzlFQio5tmfFp5LcSpA KKaXSM3tMlpMPhgt8OxYL WoR66taGNdn7J7CAAgrHx hcHNlOyBlbXB0 mS1ePVacbxeao1uqbmoiR imvl2rgmx49cM52U33iWT dpZHRoPSIzMCUiIHZhbGl oth0stK3cTz3+ QIDyaFP8ePA0vU7pHxKsG fT1ZGgpT947GtLrpMMbEw iwm3tlf8cnmFa5JsXnCUD gdmFsaWduPSJ0 c2IbWk99Y77cORfdDCYxC ZDfUFBqUNHucJvsdz4jzX 9wIi8+XE0wk5vnjb35oE9 8dHI+PHRkIHN0 sChjTPkvFPBvcN8nSJtqT uX4WFHxUfOttT07rXRwNI lvAb7xeWtrsPabCA3cJVW rztrpm401TkMz a8ubXWVrlNEdMUfqXQJ2U 76ku9F8EGLqAGCfKTP0kG F2nB5txFxsmynjrUUbkRr gdmVydGljYWwt ARhsW742AEFkcIqzBkNvo DDtV6oemlQPEG4fJrpgwE Q+FMUmQRB1nYznOTlsZRN wgR7dQQZaD0z2 KdEpOsA5QPdaE4RnclL1O SVcqGGtIEUzbBEWcU1rkx tgk0dhheatOuSeIHOcJAd 7SQu4PJKoeKna ReLvJOW5QoS5NLK3fLEer L5vwNaygrvkoE4vCye+Rk lOOjwvdGQ+SENuTWU8mXa aIKjcHNDqgZ9a YYCkB6b9MmOxFyW2GWjfI 9AyizH8XDDqdOFcKFMtdJ QUrQ8nvbrxy6klwiinMtW yMFZrDOp8AWa0 ORCfpXmpXzYxSOV5XmZ5E NK3yVGphN9oyIchlwmlkB 9wOyc+TVJOOjwvdGQ+PHR dSNF4lArwPCce GNIfqA5zIVMxB0w5YmSrH uV0IAgrP2ExylW8YLWmuT EkTYYazONTxP0oajest9r vcjogIzAwMDAw EBn2HOw9DLOapSwlBnCvG LP5DqF3TYS4qKRaqV8osR eaqinwcH4eWyt+UQO9YFA 1MW48LP45S8Fv PjwvdGFibGU+PHRhYmxlI HdpZHRoPScxMDAlJyBzdH hnDA0nPr0vUIBjIVRmdJu ywHArZwNdk2jh YXB (more content not included)... [facility] Coding Summary HTMLBase 64 VkcfsgdrMNz4bYp+PGhlY WQ+OD9IJQRoV67isPQaxI 6EZ0mFDM7SCADAJRWKDK3 RMW8tfMJ1PTopJ7DlrjIl UblglIDkAK75HWp4QLV1s BdwEHjkyN9tbJAdJ2a1Pc WcTQ30zS12GPntQSNjZhD 3LjZpbjsgbWFy G7leDnNosYRhSfd+PHRhY mxlIHdpZHRoPScxMDAlJy ZymYjrMF5bMx7vXCHeLSP vbGxhcHNlOiBj v5cyNCKsXYfdEO6eyLinX 1NihSS0SCTqb2y7Ed78nD I+MYVhUMS3pPsmFYepd17 2LaNqh0faDUO9 cQYwYVtxOSR5Z11eo1X6Z SFnUPGqOHH4rEP4jA9rnK gwzchuC6DcoZRxPbZ4FMI 0wJEksE5yiHxj rfdtbE6cPwn+P99LGB0NP BWWCW5WSbl7A5NkRfwugP I+EU82XYGbQA23iPCjxDZ ex9oprDr1KkRd QBDcUCL6tJbjJIdlu9UyE CTbP78ptWEei9O0DZPwaY dztHEeXxIihUC7hF1sNRr zbmksf1knuteb Vkxzc4nvdp21fM99Q66tV UcnWORdEBJ3OJAdXXYvpQ hetm4ovZ5bQm6+VTpoo4f ej4lydFk5GwBx NWCmcfAesZsoGMD2j1CuA y94F6LjfAmfa5KsCku0jz 75jMNwk8Y8tKB1WYgtXWX tyU6iVUqeSiG0 TBJoLvThoA02mJGhHHzyZ h6poVvhyTaaEY9aDICwox wzNUDfvV2gJMKkjMLnjYx qUM6gBCKwboxj m438TjVbGKG9MYGoaVAdY 6RaoV8sHhFxTWFcUXGtM5 LljLRvVNctD014RCtiZbH 4GYKtiuGvV7Gh UPZazKdwOaN1j3S4Fh9If 3EwrxzwRAU5NRrkHRRjFo R7ZwTmFkW2T0WpNml8HRZ ylRhzDO6wV4Of VQHaexfbolcbbLM2YSXfO YMkvT08gQKqXDnbFe1xf1 Y9h696MKCoRXYgxB03Jh0 udDogMTBwdCBU wJ1qjjksn9qxeyhaJuVeR ULlUGc9EAq4HILkeTuxYh LtBLY2DmX0KAH9zHCauN3 dmNgbggtvhU1n Oyc+P70bhE3vQOT6ZRM1l lmuNZNswtRkRZ33GY90G1 RyPjwvdGFibGU+PGRpdiB ywNydMD1pLnXh q5xmh9TpSEweC9NcVJLkJ XinTyo9CBUoHNX5tCW2sZ 0iBRYgZQawi5V3zQN9V0M xneThci8jk1jt MRAmVBcwB65ebMJft7V3R LZyiSQ5KZYvmEklGsUeoP 93Oyc+BANsaZeic4XxBiv fu8uvf5xcaQm5 EcChONOqknZdxVzpLYZ3v 1GuQu58H46rTFbyHBGcYC PiUVEeGQDfjPpgol6djR5 wIi8+PGNvbCB3 eNZ1sR9hKJLcBsP0FPalK 385NhVdcZEeFumbf9feh0 zfsLe2MiNzYRLtlpRhpNf mUYS7s1SsLy75 C42yOZffJPNfRQPuZAWnM SXmyVlyer5khX4eSm1+PC 3ty9lgud25yL22rHU+PHR fBCT4bBfmIUkz CIOwlD2yPWnwJqC0TNMiU cPllH03aOBdXYmbXm5rnB nzeBwfHZ4dNPGuwmanr63 2HmAhn4iaVWIg vRQrULeqVEX7O58lp9Q6U GXuWAEmYZS7sNN4oB6yhP lnbjogbGVmdDsgdmVydGl vNDlhJHybB691 IHRvcDsnPlBhdGllbnQgT eKjEAm8P0ZoMad3CTBeyF pmMH7ohDNtSDyxMr9jcUo jpTsoMJ5mFMPd bdtdg570HaNry5knJLHtb DRlDYaoVNT1T01la9I1QB FyHWVxHCV4vWG7zN5tjFv nbjogbGVmdDsg wkQcrBlwYOngQRdnU190U HRvcDsnPkJpcnRoIERhdG I4EK94XF45qDHmt5P3dXA 8Y7UlLFRgmmus ckedvQB0KXVeUYTfkR57Q p5gtPkxRd8cMAFvCHN9YZ KfvFLsC6CmxR0zWtRpVAH hYKNoX9CouCHx QXmyC498DZlzQqM1CEKag xLrQ8UbVPAieLcoHjE4e9 Q0Vh6VS2B1EK85LT91bRM mk8W6nKQ0V6By SUWstntsugbzcQR4PTUdH TIemJ05Zr0gfDabWm3rIM SfHQU8YCWitOJgV6KrrW1 yOiAjMDAwMDAw Z7GrjAAeQUswC283WXkcE aC6IWGzgcCmC2VgBOHpcK zkLgP6v7A1Bl1JXDg9CB1 6ZR91hGPwv9O4 wJT9A4AjXNCnikqnbftya IR7ZLLsXZEdcA57En0uoP ksGd1hSSTtFQC6HUQhoPQ fT6GlcI4aZqIp ZELnRZZmS2XbxNSrNBvmU 903JJrqWyM8XUJmsrCfW9 MdZOIgoDdoXrV1c4I6Fx8 XWQZnAN88ZAE8 eGX7OP59RO63L4PjJthoh GFibGU+PHRhYmxlIHdpZH RoPScxMDAlJyBzdHlsZT0 aCf4fYNDiKSSd aRxlyPOmOjGik8yqVJNyK KhaFN1rqVrpS4TvzEB7PL Bhm7j9It20B57hC5JzaXL +CTWjjJX0yPJ3 jZ7fVkDxZgZ6LLaaN100R fPzwCZqHynaf8hzd9dysH l2WxE9JGZsypNteVngBEX 7a3JzJb80Z52z IHdpZHRoPSIxNSUiIHZhb Sevkt7weW4qFc7+PGNvbC F2aIO1dB6dYqGyRvV0ZDe dX634JmOeqONe Ipsvv8hgr7kxfJd4CdWaQ ZUchiOfoZfjLBE2h9MsFl 03Z9BefBeop3KrJip6ad1 6cOOba2U9lES2 K6QgELHmxjiuzGUqvRxuF H0tLAGtbkahOSIivV2qAR HsQ1h0VxAoEgM3MXqgU3S hcuA7JQCnvBPe CXoyNAI0T72ir7J7AENcV PEuJPL3qQS0jO7yaNcfer ogbGVmdDsgdmVydGljYWw kCRjbV268XIHl pEejHZSfsX2zXUElrVOwx RtfWN6nYPFfvmwaDzQYN5 NGIIEVNigRCZVIPTA5L8E iSgx4XHYviCyg DX1uvCQfXSsuJz9foZfmi OtyNT7rTMToqmmoRRNdqN 0gJMBsuNGzaTsfZU7yGYP hnaopi543GlCu ZFN5LSRgnAHgK7WneU4jQ nNdIJDxXGYwX6NjmHXdUT tsT443CYisKgE0IATpieA uN1ObJRJrpVig FdF9a3R7Ih5mGc1vUC3qK Uc8BO78ZZ19rIMfk7R3yY W5N9JfQZUywatxoqbyfSL 7FDWrDMCwkT94 tDZxWPbxEa4hf4J3e553U LQxLEWqhD94He4hiXzfAX DzhAZBqS5sjvrlw2gwyvi gIzAwMDAwMDt0 NYg8MOZnhUwiWyHpRGS3B uZ5ZIG3uUTukP2dhMzdjl tjrO8kUsd+MjUgWWVhcnM 9Z7EiUjy6DEPo bOstPJ2anXEgYFnoZq2yw BnmoUmkDB2pXDHzopsyAI BrqR0sCREghIFlhZjhJC2 pPUOydkiqi632 ZdGpERU8EJBiuKRjB8Qic X9yJfWkBZIjGOBuM4VxkH FsBWbkI304QNekCcX7RIZ xgdAlV6BoIEVa tAipBxA0x1Y2Mg9LIXkHM S04ZU20vWYei8O6tDM0T8 MhEQSuldjreisekYK4EAW qYXHxhU09wLAc EGtcFq9nt7T3v803KPSgI UYbeS03Lz8bbHetFZUdlN XLwC2skhddu5ugdwnxIgZ tHSLkQGv1JHc4 KQVkjYknSlAkNGW5SzV2W HM7hWKcwK8jvFwsvnzdeA 9wOyc+B5H9E2XtWmxjnRF +LJ46KEHvEU15 uEKvzYDto4moeAn7GeXvL NAsWVW3zWmxMNktj8SgEQ HxN06pyRWdz2A0QNXizUj hcHNlOyBlbXB0 mD9xJSsyrhkwb6lrtcdbY jnrc7pxrb13kD67N71wWJ dpZHRoPSIzMCUiIHZhbGl sny8pfI8iVq6+ NCYiyER9vXR2cV9iFaGsS rM2TFqjP319MnVroDNnZq ill3qmv0kimYw2IvZoKGG gdmFsaWduPSJ0 f3JaAo47W10kGGigALGzW UCfIOMmXECbgCdiox7csS 9wIi8+UF1sa4ixin59tL0 8dHI+PHRkIHN0 hHgcZZxzTMAfkO1aEQdjR yJ4VSJsDiCejA23rGUoLR hmEb4uuZqgwKioDK0oSDB fdqdvg465OmTb o9tqGYRceLLpJRbnPOJ8V 25ck1Y9MTZaXMKsRAB3fR B0wG1ueYozsbvbpIXqvBo gdmVydGljYWwt RCdyR197YLCjdZbxIiNjs ZYeN4zbxaWKDU4lWjwbrK Q+EZOeMDS5sCscZRulPGM aeA7rYVUtA7a4 FcBsGuB8LKksA2UtoeF8N KWegPXuMNBrjFABtD2kzr ana8kdsctrLaErQCTtOVe 3BUs4OZByiYrk VkBbYKD9UuH9ZPZ5yYZwr A6gfYtshqhqdW6aUpp+Rk lOOjwvdGQ+ABCkECS2mSx zLBcgNCHblZ5k QCSgT0p6HbPtGpW2NAcyH 0OyuwJ6PTDewZSuELQhqA YRnE3uztfuz0gnkzcpDlF xCXRcYNr2IZq1 ANEtjIysQvHpLIS2VrI4Z GZ1mEDioV7gdQgyworjrB 9wOyc+TVJOOjwvdGQ+PHR wQTO2pJerMQni JWGycR9gZQVtN5z0LjEiG yU7SZgtP1OnbpQ5UYIrxS ZhPOTmsGJLoK7xhuuvf3s vcjogIzAwMDAw HVv8WMt4RGJjrOenAwJdE ZW3QdR3ITY3iCHreD1jnA dbfunaeA8kAns+YQM1DON 7EC50SV09L6Tt PjwvdGFibGU+PHRhYmxlI HdpZHRoPScxMDAlJyBzdH hzMW3zHi9yYZPhPBJjlCi gaNWbTiKjx0pd YXB (more content not included)... Normal [facility] .Auto Diff 03-24-2021 Auto [place] % 6 % Normal -12 [facility] Comment on above: Performed By: #### 7 [id number], [id number], [id number], [id number] #### [facility] (DEFAULT) [address] [place] [address] 97683 Baso Abs# 0.0 x10 Normal 0.0-0.2 [facility] Comment on above: Performed By: #### 7 848100, [id number], 4832587, [id number] #### [facility] (DEFAULT) [address] [place] [address] 23065 Basophils/100 WBC (Bld) 0.2 % Normal 0.2-2.0 [facility] Comment on above: Performed By: #### 7 640028, [id number], 6221379, [id number] #### [facility] (DEFAULT) [address] [place] [address] 55598 Eos Abs# 0.1 x10 Normal 0.0-0.4 [facility] Comment on above: Performed By: #### 7 299622, [id number], 6880782, [id number] #### [facility] (DEFAULT) [address] [place] [address] 43973 Eosinophils/100 WBC (Bld) 0.4 % Low 0.9-4.0 [facility] Comment on above: Performed By: #### 7 657905, [id number], 9840143, 27124135 #### [facility] (DEFAULT) [address] [place] [address] 13573 Lymph Abs# 0.8 x10 Low 1.3-2.9 [facility] Comment on above: Performed By: #### 7 064003, [id number], 0519015, 05223924 #### [facility] (DEFAULT) [address] [place] [address] 65802 Lymphocytes/100 WBC (Bld) 4 % Low 14-48 [facility] Comment on above: Performed By: #### 7 631997, [id number], 4720512, 05206355 #### [facility] (DEFAULT) [address] [place] [address] [place] Abs# 1.0 x10 High 0.0-0.8 [facility] Comment on above: Performed By: #### 7 598580, [id number], 9020160, [id number] #### [facility] (DEFAULT) [address] [place] [address] Neut Abs# 15.6 x10 High 1.5-9.2 [facility] Comment on above: Performed By: #### 7 852302, [id number], 8439054, 37591130 #### [facility] (DEFAULT) [address] [place] [address] Neutrophils/100 WBC (Bld) 90 % High 44-88 [facility] Comment on above: Performed By: #### 7 681389, [id number], 6789233, 04665082 #### [facility] (DEFAULT) [address] [place] [address] .QC SARS-CoV-2 (COVID-19)/Fl u/RSV (GeneXpert)on 03-24-2021 Internal Control Pass Normal [facility] Comment on above: Order Comment: Order ed by Discern.[[email or web address]] Performed By: #### 7 806556, [id number], 0124820, [id number] #### [facility] (DEFAULT) [address] [place] [address] CBC w/ Auto Diffon Erythrocyte distribution width (RBC) [Ratio] 13.1 % Normal 11.5-15.0 [facility] Comment on above: Performed By: #### 7 022540, [id number], 1221786, 04947593 #### [facility] (DEFAULT) [address] [place] [address] Hematocrit (Bld) [Volume fraction] 47.2 % Normal 34.8-51.9 [facility] Comment on above: Performed By: #### 7 587087, [id number], 0580352, 44861330 #### [facility] (DEFAULT) [address] [place] [address] Hemoglobin (Bld) [Mass/Vol] 16.2 g/dL Normal 11.8-17.7 [facility] Comment on above: Performed By: #### 7 664786, [id number], 2760996, 11951429 #### [facility] (DEFAULT) [address] [place] [address] 58925 Instr WBC 17.4 x10 Invalid Interpretation Code [facility] Comment on above: Performed By: #### 7 375053, [id number], 5193674, 88329782 #### [facility] (DEFAULT) [address] [place] [address] Man Diff? Auto Normal [facility] Comment on above: Performed By: #### 7 135100, [id number], 3142926, 53362140 #### [facility] (DEFAULT) [address] [place] [address] 02595 MCH (RBC) [Entitic mass] 28 pg Normal 24-34 [facility] Comment on above: Performed By: #### 7 219843, [id number], 8132728, 09894833 #### [facility] (DEFAULT) [address] [place] [address] 68440 MCHC (RBC) [Mass/Vol] 34 g/dL Normal 26-[address] [facility] Comment on above: Performed By: #### 7 277714, [id number], 2810560, 54791630 #### [facility] (DEFAULT) [address] [place] [address] 01969 MCV (RBC) [Entitic vol] 81 fL Normal 81-100 [facility] Comment on above: Performed By: #### 7 798664, [id number], 0291866, 42093243 #### [facility] (DEFAULT) [address] [place] [address] 74923 Platelet 314 x10 Normal 138-427 [facility] Comment on above: Performed By: #### 7 038835, [id number], 0391925, 05155375 #### [facility] (DEFAULT) [address] [place] [address] Platelet mean volume (Bld) [Entitic vol] 9.1 fL Normal 6.3-10.2 [facility] Comment on above: Performed By: #### 7 488749, [id number], 2172330, 28557900 #### [facility] (DEFAULT) [address] [place] [address] RBC 5.81 x10 High 3.70-5.30 [facility] Comment on above: Performed By: #### 7 780281, [id number], 6442095, 16867516 #### [facility] (DEFAULT) [address] [place] [address] WBC 17.4 x10 High 3.5-10.5 [facility] Comment on above: Result Comment: Slid e Reviewed Performed By: #### 7 186350, [id number], 6397791, 66130799 #### [facility] (DEFAULT) [address] [place] [address] Standardon 03-24-2021 eGFR Non AA >60 Invalid Interpretation Code [facility] Comment on above: Performed By: #### 7 143692, [id number], 6323230, 44885677 #### [facility] (DEFAULT) [address] [place] [address] eGFR AA >60 Invalid Interpretation Code [facility] Comment on above: Result Comment: Carbide Operator trish Kidney disease could be indicated at eGFRs of less than 60 ml/min/1.73m2. Kidney Failure is indicated at less than 15 ml/min/1.73m2 Performed By: #### 7 080757, [id number], 1945238, 63292109 #### [facility] (DEFAULT) [address] [place] [address] Albumin [Mass/Vol] 4.6 g/dL Normal 3.5-5.0 [facility] Comment on above: Performed By: #### 7 715771, [id number], 1098128, 86662875 #### [facility] (DEFAULT) [address] [place] [address] Albumin/Globulin [Mass ratio] 1.3 {ratio} Low 1.4-2.6 [facility] Comment on above: Performed By: #### 7 086411, [id number], 7490074, 72988148 #### [facility] (DEFAULT) [address] [place] [address] 05921 Alk Phos 84 IU/L Normal 32-91 [facility] Comment on above: Performed By: #### 7 195181, [id number], 1132898, 04159021 #### [facility] (DEFAULT) [address] [place] [address] 97592 ALT [Catalytic activity/Vol] 42.0 U/L Normal 17.0-63.0 [facility] Comment on above: Performed By: #### 7 742974, [id number], 2068631, 80138814 #### [facility] (DEFAULT) [address] [place] [address] 48682 Anion gap [Moles/Vol] 14.0 mmol/L Normal 5.0-19.0 [facility] Comment on above: Performed By: #### 7 052612, [id number], 9975107, 69519336 #### [facility] (DEFAULT) [address] [place] [address] 54941 AST [Catalytic activity/Vol] 32 U/L Normal 15-41 [facility] Comment on above: Performed By: #### 7 025466, [id number], 5281278, 97548090 #### [facility] (DEFAULT) [address] [place] [address] 58782 Bili Total 1.2 mg/dL Normal 0.3-1.2 [facility] Comment on above: Performed By: #### 7 642167, [id number], 2273508, 37413134 #### [facility] (DEFAULT) [address] [place] [address] 90865 Calcium [Mass/Vol] 9.3 mg/dL Normal 8.9-10.3 [facility] Comment on above: Performed By: #### 7 964511, [id number], 5585556, 90011283 #### [facility] (DEFAULT) [address] [place] [address] 97723 Chloride [Moles/Vol] 92 mmol/L Low 101-111 [facility] Comment on above: Performed By: #### 7 979130, [id number], 3062118, 70958630 #### [facility] (DEFAULT) [address] [place] [address] 32135 CO2 [Moles/Vol] 31 mmol/L Normal 21-32 [facility] Comment on above: Performed By: #### 7 865950, [id number], 2673140, 42120481 #### [facility] (DEFAULT) [address] [place] [address] Creatinine [Mass/Vol] 0.68 mg/dL Low 0.90-1.[address] [facility] Comment on above: Performed By: #### 7 264734, [id number], 8524543, 22103441 #### [facility] (DEFAULT) [address] [place] [address] 79533 Globulin (S) [Mass/Vol] 3.5 g/dL Normal 1.5-4.3 [facility] Comment on above: Performed By: #### 7 366293, [id number], 5477274, 59186333 #### [facility] (DEFAULT) [address] [place] [address] 01296 Glucose [Mass/Vol] 106.0 mg/dL Normal 74.0-118.0 [facility] Comment on above: Performed By: #### 7 905908, [id number], 3166071, 01666977 #### [facility] (DEFAULT) [address] [place] [address] 88883 Osmolality 268 mOsm/L Invalid Interpretation Code [facility] Comment on above: Performed By: #### 7 873623, [id number], 2363421, 53198519 #### [facility] (DEFAULT) [address] [place] [address] 54426 Potassium [Moles/Vol] 3.0 mmol/L Low 3.6-5.[address] [facility] Comment on above: Performed By: #### 7 011792, [id number], 1729316, 76300440 #### [facility] (DEFAULT) [address] [place] [address] 48701 Protein [Mass/Vol] 8.1 g/dL Normal 6.5-8.1 [facility] Comment on above: Performed By: #### 7 801191, [id number], 8728541, 64328594 #### [facility] (DEFAULT) [address] [place] [address] 86801 Sodium [Moles/Vol] 134.0 mmol/L Low 136.0-144.[address] [facility] Comment on above: Performed By: #### 7 697705, [id number], 1782289, 15687488 #### [facility] (DEFAULT) [address] [place] [address] 18542 Urea nitrogen [Mass/Vol] 11 mg/dL Normal 8-26 [facility] Comment on above: Performed By: #### 7 821582, [id number], 4026668, 44326858 #### [facility] (DEFAULT) [address] [place] [address] 63887 Urea nitrogen/Creatinine [Mass ratio] 16.0 mg/mg Normal 4.6-16.2 [facility] Comment on above: Performed By: #### 7 509813, [id number], 2038222, 67956445 #### [facility] (DEFAULT) [address] [place] [address] 59388 Magnesiumon 03-24-2021 Magnesium [Mass/Vol] 1.07 mg/dL Low 1.80-2.50 [facility] Comment on above: Performed By: #### 7 139130, [id number], 1580069, 14325198 #### [facility] (DEFAULT) [address] [place] [address] 50003 BASIC METABOLIC PANELon -3 Calcium 10.4 mg/dL High 8.6-10.3 [facility] Comment on above: Performed By: #### 1 0070, 46601 ####[facility] [place] [address], [facility] Chloride 99 mmol/L Normal 98-107 [facility] Comment on above: Performed By: #### 1 69, 15489 ####[facility] [place] [address], [facility] CO2 29 mmol/L Normal 21-31 [facility] Comment on above: Performed By: #### 1 69, 11865 ####[facility] [place] [address], [facility] Creatinine 0.82 mg/dL Normal 0.70-1.30 [facility] Comment on above: Performed By: #### 1 69, ####[facility] [place] [address], [facility] eGFR (black) mL/min/{1.73_m2} Normal >60 [facility] Comment on above: Performed By: #### 1 69, ####[facility] eGFR (non-black) mL/min/{1.73_m2} Normal >60 [facility] Comment on above: Performed By: #### 1 69, 00762 ####[place] [address] [facility] [place] [address], [facility] Glucose mass conc 84 mg/dL Normal 70-[address] [facility] Comment on above: Performed By: #### 1 69, 46669 ####[facility] [place] [address], [facility] Potassium molar conc 4.5 mmol/L Normal 3.5-5.1 [facility] Comment on above: Performed By: #### 1 69, 58317 ####[facility] [place] [address], [facility] Sodium 136 mmol/L Normal 136-145 [facility] Comment on above: Performed By: #### 1 69, 37928 ####[facility] [facility] [place] [address], [facility] Urea nitrogen 14 mg/dL Normal 7- [facility] Comment on above: Performed By: #### 1 0070, 97410 ####[facility] [facility], [place] [id number] [place] [address] MAGNESIUM BLOODon 06-07-2017 Magnesium 1.6 mg/dL Low 1.9-2.7 [facility] Comment on above: Performed By: #### 1 0070, 13107 ####[facility] [facility].[address] Vital Signs Date Time Vital Sign Value Performing Clinician Faci lity 09-01-2023 14:39-0400 Diastolic blood pressure 67 mm[Hg] MD Shaikh Alvarez Work Phone: [facility] 09-01-2023 14:39-0400 Heart rate 81 /min MD Shaikh Alvarez Work Phone: [facility] 09-01-2023 14:39-0400 Respiratory rate 16 /min MD Shaikh Alvarez Work Phone: [facility] 09-01-2023 14:39-0400 SaO2% (BldA) [Mass fraction] 96 % MD Shaikh Alvarez Work Phone: [facility] 09-01-2023 14:39-0400 Systolic blood pressure 116 mm[Hg] MD Shaikh Alvarez Work Phone: [facility] 09-01-2023 13:05-0400 Body height 177.8 cm MD Shaikh Alvarez Work Phone: [facility] 09-01-2023 13:05-0400 Body temperature 98.6 [degF] MD Shaikh Alvarez Work Phone: [facility] 09-01-2023 13:05-0400 Body weight 104.3 kg MD Shaikh Alvarez Work Phone: [facility] 08-18-2023 13:24-0400 Body height 172.72 cm MD Shaikh Alvarez Work Phone: [facility] 08-18-2023 13:24-0400 Body weight 104.32 kg MD Shaikh Alvarez Work Phone: [facility] 08-18-2023 13:24-0400 Diastolic blood pressure 87 mm[Hg] MD Shaikh Alvarez Work Phone: [facility] 08-18-2023 13:24-0400 Heart rate 99 /min MD Shaikh Alvarez Work Phone: [facility] 08-18-2023 13:24-0400 Respiratory rate 16 /min MD Shaikh Alvarez Work Phone: [facility] 08-18-2023 13:24-0400 SaO2% (BldA) [Mass fraction] 97 % MD Shaikh Alvarez Work Phone: [facility] 08-18-2023 13:24-0400 Systolic blood pressure 128 mm[Hg] MD Shaikh Alvarez Work Phone: [facility] 07-18-2023 13:02-0400 Body height 175.26 cm MD Shaikh Alvarez Work Phone: [facility] 07-18-2023 13:02-0400 Body mass index (BMI) [Ratio] 34.8 kg/m2 MD Shaikh Alvarez Work Phone: [facility] 07-18-2023 13:02-0400 Body weight 107.04 kg MD Shaikh Alvarez Work Phone: [facility] 07-18-2023 13:02-0400 Diastolic blood pressure 90 mm[Hg] MD Shaikh Alvarez Work Phone: [facility] 07-18-2023 13:02-0400 Heart rate 79 /min MD Shaikh Alvarez Work Phone: [facility] 07-18-2023 13:02-0400 Systolic blood pressure 129 mm[Hg] MD Shaikh Alvarez Work Phone: [facility] 06-16-2023 15:56-0500 Body height 172.7 cm Shaikh Kim CALL Work Phone: [facility] 06-16-2023 15:56-0500 Body mass index (BMI) [Ratio] 35.73 kg/m2 Shaikh Kim CALL Work Phone: [facility] 06-16-2023 15:56-0500 Body temperature 97.9 [degF] Shaikh Kim CALL Work Phone: [facility] 06-16-2023 15:56-0500 Body weight 106.59 kg Shaikh Kim CALL Work Phone: [facility] 06-16-2023 15:56-0500 Diastolic blood pressure 76 mm[Hg] Shaikh Kim CALL Work Phone: [facility] 06-16-2023 15:56-0500 Heart rate 72 /min Shaikh Kim CALL Work Phone: [facility] 06-16-2023 15:56-0500 SaO2% (BldA) [Mass fraction] 96 % Shaikh Kim CALL Work Phone: [facility] 06-16-2023 15:56-0500 Systolic blood pressure 110 mm[Hg] Shaikh Kim CALL Work Phone: [facility] 11-25-2022 15:40-0400 Body height 175.26 cm Marcelino Villegas Other [email or web address] Other 11-25-2022 15:40-0400 Body mass index (BMI) [Ratio] 34.23 kg/m2 Marcelino Andra Other [email or web address] Other 11-25-2022 15:40-0400 Body temperature 98 [degF] Marcelino Andra Other [email or web address] Other 11-25-2022 15:40-0400 Body weight 105.14 kg Marcelino Andra Other [email or web address] Other 11-25-2022 15:40-0400 Diastolic blood pressure 81 mm[Hg] Marcelino Andra Other [email or web address] Other 11-25-2022 15:40-0400 Respiratory rate 18 /min Marcelino Andra Other [email or web address] Other 11-25-2022 15:40-0400 SaO2% (BldA) [Mass fraction] 98 % Marcelino Andra Other [email or web address] Other 11-25-2022 15:40-0400 Systolic blood pressure 134 mm[Hg] Marcelino Andra Other [employer] Other 12-02-2021 09:05-0400 Diastolic blood pressure 88 mm[Hg] Provider AMAProvider Work Phone: [facility] Work Phone: 12-02-2021 09:05-0400 Systolic blood pressure 118 mm[Hg] Provider AMAProvider Work Phone: [facility] Work Phone: 12-02-2021 09:04-0400 Body height 177.8 cm Provider AMAProvider Work Phone: [phone] [place] [address] Work Phone: 12-02-2021 09:04-0400 Body mass index (BMI) [Ratio] 31.14 kg/m2 Provider A[facility] Work Phone: [phone] [place] [address] Work Phone: 12-02-2021 09:04-0400 Body surface area Derived from formula 2.16 m2 Provider A[facility]Provider Work Phone: [phone] [place] [address] Work Phone: 12-02-2021 09:04-0400 Body weight 98.43 kg Provider A[facility] Work Phone: [phone](395)[phone] [place] [address] Work Phone: 12-02-2021 09:04-0400 Diastolic blood pressure 86 mm[Hg] Provider AMAProvider Work Phone: [phone] [place] [address] Work Phone: 12-02-2021 09:04-0400 Heart rate 66 /min Provider [facility] Work Phone: [phone] [address] Work Phone: 12-02-2021 09:04-0400 Systolic blood pressure 122 mm[Hg] Provider AMAProvider Work Phone: [phone] [address] Work Phone: 03-25-2021 12:20-0500 Body height 175.26 cm Marcelino Andra Other [email or web address] Other 03-25-2021 12:20-0500 Body mass index (BMI) [Ratio] 30.59 kg/m2 Marcelino Andra Other [email or web address] Other 03-25-2021 12:20-0500 Body temperature 99.1 [degF] Marcelino Andra Other [email or web address] Other 03-25-2021 12:20-0500 Body weight 93.99 kg Marcelino Andra Other [email or web address] Other 03-25-2021 12:20-0500 Diastolic blood pressure 82 mm[Hg] Marcelino Andra Other [employer] Other 03-25-2021 12:20-0500 Respiratory rate 18 /min Marcelino Andra Other [email or web address] Other 03-25-2021 12:20-0500 SaO2% (BldA) [Mass fraction] 96 % Marcelino Andra Other [email or web address] Other 03-25-2021 12:20-0500 Systolic blood pressure 125 mm[Hg] Marcelino Andra Other [email or web address] Other Encounters Encounter Date Encounter Type Care Provider Facility Start: 09-01-2023 End: 09-01-2023 ambulatory Imad Asaad [facility] [facility] Start: 09-01-2023 Non-patient / Non-visit MD Shaikh Alvarez Work Phone: [facility] Work Phone: Start: 09-01-2023 End: 09-01-2023 Admission to same day surgery center MD Shaikh Alvarez Work Phone: [facility] Work Phone: Start: 09-01-2023 End: 09-01-2023 ambulatory MD Shaikh Alvarez Work Phone: [facility] Work Phone: Start: 08-18-2023 End: 08-18-2023 ambulatory Imad Asaad Facility:[facility] Start: 08-18-2023 End: 08-18-2023 Admission to same day surgery center MD Shaikh Alvarez Work Phone: [facility] Work Phone: Start: 08-18-2023 End: 08-18-2023 ambulatory MD Shaikh Alvarez Work Phone: [facility] Work Phone: Start: 08-04-2023 End: 08-04-2023 ambulatory OSVALDO BRINK Not Available Start: 08-02-2023 End: 08-02-2023 ambulatory JEREMIAH CLARKTACOS Not Available Start: 07-28-2023 End: 07-28-2023 ambulatory FRANCE REINA Not Available Start: 07-23-2023 End: 07-23-2023 ambulatory Imad Asaad Facility:[facility] Start: 07-23-2023 End: 07-23-2023 ambulatory MD Shaikh Alvarez Work Phone: [facility] Work Phone: Start: 07-23-2023 End: 07-23-2023 Patient encounter procedure MD Shaikh Alvarez Work Phone: [facility] [place] Work Phone: Start: 07-21-2023 End: 07-21-2023 ambulatory FRANCE REINA Not Available Start: 07-19-2023 End: 07-19-2023 ambulatory OSVALDO BRINK Not Available Start: 07-18-2023 End: 07-18-2023 Patient encounter procedure MD Shaikh Alvarez Work Phone: [facility] Work Phone: Start: 07-14-2023 End: 07-14-2023 ambulatory OSVALDO BRINK Not Available Start: 07-12-2023 End: 07-12-2023 ambulatory OSVALDO BRINK Not Available Start: 07-07-2023 End: 07-07-2023 ambulatory FRANCE REINA Not Available Start: 06-30-2023 End: 06-30-2023 ambulatory OSVALDO BRINK Not Available Start: 06-28-2023 End: 06-28-2023 ambulatory FRANCE RENIA Not Available Start: 06-22-2023 Orders Only Shaikh [...] 04-11-2023 End: 04-11-2023 ambulatory Imad Asaad Other [email or web address] Other Start: 04-11-2023 Encounter by compute r link Imad Asaad [facility] Start: 11-25-2022 End: 11-25-2022 ambulatory Marcelino Andra Other [email or web address] Other Start: 11-25-2022 Office outpatient visit 15 minutes Marcelino Andra [facility] [place] Start: 11-25-2022 Telephone encounter Marcelino Andra [facility] Start: 08-27-2022 End: 08-27-2022 ambulatory Marcelino Andra Other [email or web address] Other Start: 08-27-2022 Telephone encounter Marcelino Andra [facility] Start: 06-23-2022 End: 06-24-2022 ambulatory SHAIKH Sawyer ALVAREZ Facility:[facility] Start: 01-27-2022 End: 01-28-2022 ambulatory NIDA WOODS Facility:[facility] Start: 12-02-2021 Office outpatient ne w 45 minutes Provider AMAPrsalvatore Work Phone: [facility] Work Phone: Start: 11-16-2021 End: 11-17-2021 ambulatory MARCELINO ANDRA Facility:[facility] Start: 11-12-2021 End: 11-13-2021 ambulatory MARCELINO ANDRA Facility:[facility] Start: 11-11-2021 End: 11-12-2021 ambulatory MARCELINO ANDRA [facility] [employer] Other Start: 11-11-2021 Telephone encounter Marcelino Andra [facility] Start: 11-10-2021 End: 11-10-2021 ambulatory Marcelino Andra Other [email or web address] Other Start: 11-10-2021 Telephone encounter Marcelino Andra [facility] [place] Start: 11-08-2021 End: 11-09-2021 ambulatory NIDA CHUCK Facility:[facility] Start: 10-13-2021 End: 10-13-2021 ambulatory NIDA CHUCK Facility:[facility] Start: 10-13-2021 End: 10-13-2021 ambulatory Nida A Chuck Facility[facility] Start: 09-23-2021 ambulatory MARCELINO ANDRA Facility: 1 Start: 06-25-2021 End: 07-03-2021 ambulatory Nida A Chuck Facility:[facility] Start: 03-25-2021 End: 03-25-2021 ambulatory Marcelino Andra Other [email or web address] Other Start: 03-25-2021 Office outpatient visit 15 minutes Marcelino Andra [facility] Start: 03-24-2021 End: 04-07-2021 ambulatory Nida A Chuck [facility] [employer] Other Start: 03-24-2021 Telephone encounter Marcelino Andra [facility] Senior Policy Analyst Start: 07-22-2017 End: 07-23-2017 Ambulatory MARBELLA TEMPLE Facility:[facility] Start: 06-07-2017 End: 06-08-2017 Ambulatory OSHARSH CANNONO Facility:[facility] Procedures Date Procedure Procedure Detail Performing Clinician Start: 09-01-2023 Esophagogastroduodenoscopy MD Shaikh Alvarez Work Phone: Start: 08-18-2023 Esophagogastroduodenoscopy MD Shaikh Alvarez Work Phone: NEGATED: Highlighted row has not occurred! Total colonoscopy Provider Amelia er Work Phone: Plan of Treatment Date Care Activity Detail Author Start: 09-01-2023 [facility] Start: 08-18-2023 [facility] Start: 06-27-2023 End: 06-27-2023 Patient encounter procedure 06/27/2023 9:45 AM EST Office Visit [facility] [address] [place] [address] Shaikh Alvarez MD [address] [place] [address] [facility] Start: 06-23-2023 End: 06-23-2023 ambulatory 06/23/2023 1:00 PM EST Evaluation [facility] [address] [facility] [address] [place] [address] France Reina, PT [address] [place] [address] [place] [address] [facility] Start: 06-16-2023 End: 06-16-2024 MR Shoulder - right WO contrast MR shoulder right wo IV contrast Imaging Routine Acute pain of right shoulder Expected: 06/16/2023, Expires: 06/16/2024 [facility] Work Phone: Comment on above: Expected: 06/16/2023 , Expires: 06/16/2024 Start: 01-07-2023 Influenza vaccination Influenza Vacc ine (#1) [facility] Start: 01-05-2022 STRESS NUC, Provider : FRANCISCO YOUNG NUCLEAR ,[id number], Status: Pen, Time: 12:00 PM STRESS NUC, Provider: FRANCISCO YOUNG NUCLEAR ,[id number], Status: Pen, Time: 12:00 PM [facility] Work Phone: Start: 01-05-2022 ECHO, Provider: FRANCISCO HHVI ULTRASOUND ,[id number], Status: Pen, Time: 9:45 AM ECHO, Provider: FRANCISCO [facility] ULTRASOUND ,[id number], Status: Pen, Time: 9:45 AM [facility] Work Phone: Patient Education Gastric Ulcer (DC) [facility] Work Phone: Immunizations Immunization Date Immunization Notes Care Provider Kayla jones 10-04-2020 Pfizer-BioNTech COVID-19 Vacc 30 MCG/0.3ML Intramuscular Suspension Provider AMAProvider Work Phone: [facility] Work Phone: 09-07-2020 Pfizer-BioNTech COVID-19 Vacc 30 MCG/0.3ML Intramuscular Suspension Provider AMAProvider Work Phone: [facility] Work Phone: 12-14-2000 diphtheria, tetanus toxoids and acellular pertussis vaccine, unspecified formulation Provider AMAProvider Work Phone: [facility] Work Phone: 12-14-2000 measles, mumps and rubella virus vaccine Provider AMAProvider Work Phone: [facility] Work Phone: 12-14-2000 poliovirus vaccine, inactivated Provider AMAProvider Work Phone: [facility] Work Phone: 02-06-1997 diphtheria, tetanus toxoids and acellular pertussis vaccine, unspecified formulation Provider AMAProvider Work Phone: [facility] Work Phone: 02-06-1997 haemophilus influenz ae type b vaccine, conjugate unspecified formulation Provider AMAProvider Work Phone: [facility] Work Phone: 02-06-1997 measles, mumps and rubella virus vaccine Provider AMAProvider Work Phone: [facility] Work Phone: 10-08-1996 diphtheria, tetanus toxoids and acellular pertussis vaccine, unspecified formulation Provider AMAProvider Work Phone: [phone] [place] [address] Work Phone: 10-08-1996 haemophilus influenz ae type b vaccine, conjugate unspecified formulation Provider AMAProvider Work Phone: [phone] [place] [address] Work Phone: 10-08-1996 hepatitis B vaccine, pediatric or pediatric/adolescent dosage Provider AMAProvider Work Phone: [phone] [place] [address] Work Phone: 10-08-1996 trivalent poliovirus vaccine, live, oral Provider AMAProvider Work Phone: [phone] [place] [address] Work Phone: 04-02-1996 DTP-Haemophilus influenzae type b conjugate vaccine Provider AMAProvider Work Phone: [phone] [place] [address] Work Phone: 04-02-1996 trivalent poliovirus vaccine, live, oral Provider AMAProvider Work Phone: [phone] [place] [address] Work Phone: 1995 DTP-Haemophilus influenzae type b conjugate vaccine Provider AMAProvider Work Phone: [phone] [place] [address] Work Phone: 1995 hepatitis B vaccine, pediatric or pediatric/adolescent dosage Provider AMAProvider Work Phone: [phone] [place] [address] Work Phone: 1995 trivalent poliovirus vaccine, live, oral Provider AMAProvider Work Phone: [phone] [place] [address] Work Phone: 1995 hepatitis B vaccine, pediatric or pediatric/adolescent dosage Provider AMAProvider Work Phone: [phone] [place] [address] Work Phone: Payers Date Payer Category Payer Self-pay [id number] 2023 Private Health Insurance [facility] [id number] 2023 Private Health Insurance [facility] [id number] 2023-Present [address] [place] [address] [id number]. [id number] 2023 Private Health Insurance [facility] [id number] 2021 Unknown [id number] 2.16.840.1.425808.19 1995 Unknown [id number] 2.16.840.1.110538.3.579.2. 718 1995 Unknown [id number] 2.16.840.1.935128.3.579.2. 718 1995 Unknown [id number] 2.16.840.1.798948.3.579.2. 718 1995 Unknown [id number] 2.16.840.1.213092.3.579.2. 718 1995 Unknown [id number] 2.16.840.1.889682.3.579.2. 593 1995 Unknown [id number] 2.16.840.1.178486.3.579.2. 593 1995 Unknown [id number] 2.16.840.1.506169.3.579.2. 593 1995 Unknown [id number] 2.16.840.1.650734.3.579.2. 593 1995 Unknown [id number] 2.16.840.1.463266.3.579.2. 593 1995 Unknown [id number] 2.16.840.1.599175.3.579.2. 593 1995 Unknown [id number] 2.16.840.1.109467.3.579.2. 593 1995 Unknown [id number] 2.16.840.1.261803.3.579.2. 593 1995 Unknown [id number] 2.16.840.1.041151.3.579.2. 9 1995 Unknown [id number] 2.16.840.1.924744.3.579.2. 1258 1995 Unknown [id number] 2.16.840.1.122135.3.579.2. 1258 1995 Unknown [id number] 2.16.840.1.528604.3.579.2. 1258 1995 Unknown [id number] 2.16.840.1.819032.3.579.2. 1258 1995 Unknown [id number] 2.16.840.1.048952.3.579.2. 1258 1995 Unknown [id number] 2.16.840.1.534835.3.579.2. 1258 1995 Unknown [id number] 2.16.840.1.768667.3.579.2. 1258 1995 Unknown [id number] 2.16.840.1.441421.3.579.2. 1258 1995 Unknown [id number] 2.16.840.1.195540.3.579.2. 1258 1995 Unknown [id number] 2.16.840.1.914445.3.579.2. 9 1959 Private Health Insurance [id number] 1959 Private Health Insurance [id number] 1959 Self-pay [id number] 1959 Unknown [id number] Unknown [id number] Unknown Unknown [id number] 2.16.840.1.795859.3.579.2. 531 Unknown [id number] 2.16.840.1.340371.3.579.2. 531 Unknown [id number] 2.16.840.1.548035.3.579.2. 531 Social History Date Type Detail Facility Unknown if ever smoked [email or web address] Other Start: 06-16-2023 Sex Assigned At [email or web address] Other Start: 06-16-2023 No illicit drug use No illicit drug use [facility] Work Phone: Comment on above: 1 can of pop daily.; Start: 06-16-2023 End: 09-01-2023 Tobacco smoking status NHIS Never smoked tobacco [facility] Start: 06-16-2023 End: 06-20-2023 Alcohol intake Lifetime non-drinker (finding) [facility] Start: 1995 Sex Assigned At Not on file [facility] Start: 1995 Sex Assigned At Male [facility] NEGATED: Highlighted rowStart: NINF History of tobacco use Passive smoker [facility] Goals Date Patient Goal Desired Activity /State Clinical Notes 03-25-2021 to 09-01-2023 Shaikh Kim MD - 06/16/2023 4:38 PM Julianne Alvarez MD - 06/16/2023 3:45 PM EST Note Date & Type Note Facility 09-01-2023 Procedure note [facility] 06-16-2023 History of Present illness Narrative Associated Problem(s): Acute pain of [...] weeks (around 06/30/2023). documented in this encounter [facility] 11-25-2022 Evaluation note Encounter Date [...] the Gitelman syndrome. Continue oral magnesium supplement. [email or web address] Other 04-21-2023 Evaluation note* Encounter Date Diagnosis Assessment Notes Treatment Notes Treatment Clinical Notes Aug, Hypomagnesemia (ICD-10 - E83.42) Aug, Hypokalemia (ICD-10 - E87.6) [email or web address] Other 07-06-2022 Evaluation note* Encounter Date Diagnosis Assessment Notes Treatment Notes Treatment Clinical Notes Nov, Leukocytosis (ICD-10 - D72.829) Nov, Hypomagnesemia (ICD-10 - E83.42) Nov, Hypokalemia (ICD-10 - E87.6) [email or web address] Other 07-04-2022 Chief complaint Narrative - Reported* [...] ischemic defects and follow-up as needed [facility] Work Phone: [phone]) 639-357907-04-2022 Chief complaint Narrative - Reported* [place] [...] ischemic defects and follow-up as needed [facility] Work Phone: [phone]) 743-966711-17-2021 Evaluation note* Encounter Date Diagnosis Assessment Notes [...] weeks to make sure it is resolved. [place] [employer] Other Evaluation noteNo [facility] Other Evaluation note* Diagnosis Acute pain of right shoulder- Primary [facility] Diagnosis Infraspinatus strain, right, subsequent encounter- Primary documented in this encounter [facility]* Diagnosis Onset Date Resolution Status Abdominal pain acute [facility] Work Phone: History and physical note Author Carlos Johnson [facility] September 01, 2023 2:03pm Note Date/Time September 01, 2023 1:5 2pm [facility] [address] [place] [address] Gastroenterology H&P Signed Patient: Wood Horn MR#: [id number] : 1995 Acct:[id number] Age/Sex: 27 / M Adm Date: 4 Loc: Room: Type: [facility] Attending Dr: Carlos Johnson MD Copies to: MD Shaikh Kim Flores MD~ Date of Service: 09/01/2023 HISTORY & PHYSICAL: Patient's history with special attention to the cardiovascular, pulmonary systems and the current problem was reviewed with the patient immediately prior to the procedure. Present medications and doses reviewed in the EMR. Allergies and pertinent laboratory tests were also reviewedat this time in the EMR. The physical examination, as below, was then performed. Indication, assessment and HPI: 27-year-old man here for EGD for evaluation of epigastric pain Family history of GI malignancy? No PHYSICAL EXAMINATION General appearance: Pleasant, NAD Skin: No jaundice Head: NC/AT Eyes: Anicteric Neck: Supple Lungs: Normal respiratory effort, no use of accessory muscles Abdomen: Soft, nondistended Neuro: Ox3. REVIEW OF SYSTEMS Constitutional: Denies malaise, fevers Cardiovascular: Denies chest pain, palpitations Respiratory: Denies shortness of breath, wheezing Gastrointestinal: As per HPI Genitourinary: Denies dysuria, polyuria Musculoskeletal: Denies joint swelling, joint stiffness Neurological: Denies confusion, numbness, tingling Endocrine: Denies fatigue Written informed consent obtained from the patient. Risks (including but not limited to perforation, infection, bloating, bleeding, need for emergent surgeryand loss of life), benefits and alternatives explained and questions answered. The patient verbalized understanding. Based on history patient is an appropriate candidate for the procedure. Carlos Johnson M.D. 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 Hospitalization History low potassium 2013 Hospitalization History low potassium 2019 Hospitalization History low potassium 2018 [email or web address] Other Reason for referral (narrative)* Consultation (Routine) - Pending Review Specialty Diagnoses / Procedures Referred By Sonny peters Referred To Contact Orthopaedic Surgery Diagnoses Infraspinatus strain, right, subsequent encounter Shaikh Alvarez MD [address] [place] [address] Rey Cruz MD [address] [place] [address] Referral ID Status Reason Start Date Expiration Date Visits Requested Visits Authorized [id number] Pending Review Specialty Services Required 06/22/2023 12/19/2023 1 1 [facility] Healthcare Summary Purpose Family History No Family [...] contrast Shaikh Alvarez MD [address] [place] [address] [place] [facility] [address] [place] [address] Phone: [phone] Referral ID Status Reason Start Date Expiration Date V isits Requested Visits Authorized [id number] Pending Review 06/16/2023 12/13/2023 1 1 Specialty Diagnoses / Procedures Referred By Contac t Referred To Contact Physical Therapy Diagnoses Acute pain of right shoulder Procedures [place] OFFICE/OUTPATIENT NEW HIGH MDM 60 MINUTES Shaikh Alvarez MD [address] [place] [address] France Reina, PT [address] [facility] [address] [place] [address] Referral ID Status Reason Start Date Expiration Date Visits Requested Visits Authorized [id number] Pending Review Consult and Treat 06/16/2023 12/13/2023 1 1 Chief Complaint and Reason for Visit Chief Complaint CONSULT- ABDOMINAL P AIN R19.7 Reason for Visit Abdominal pain Chief Complaint CONSULT- ABDOMINAL P AIN R19.7 abd pain Reason for Visit Abdominal pain Chief Complaint CONSULT- ABDOMINAL P AIN R19.7 abd pain abd pain abd pain Reason for Visit Abdominal pain Additional Source Comments (unrecognized sect ion and content) No Status Records FoundNo Status Records FoundNo Status Records FoundNo Status Records FoundNo Status Records FoundNo Status Records Found INFORMATION SOURCE (unrecogn ized section and content) DATE CREATED AUTHOR 10/28/2017 [facility] DATE CREATED AUTHOR AUTHOR'S ORGANIZ ATION 12/05/2021 [employer] DATE CREATED AUTHOR AUTHOR'S ORGANIZ ATION 02/07/2022 [facility] DATE CREATED AUTHOR AUTHOR'S ORGANIZ ATION 06/28/2022 [facility] pital DATE CREATED AUTHOR AUTHOR'S ORGANIZ ATION 08/05/2023 [facility] Special[facility] EPIC DATE CREATED AUTHOR AUTHOR'S ORGANIZ ATION 09/09/2023 [facility] ysician Group REASON FOR VISIT (unrecogniz ed section and content) Reason Comments Shoulder Pain RIGHT Care Teams (unrecognized sec tion and content) Security Public Safety Officer Relationship Specialty Start Date End Date Shaikh Alvarez MD [address] [place] [address] PCP - General Internal Medicine 06/16/23 Security Public Safety Officer Relationship Specialty Start Date End Date Shaikh Alvarez MD [address] [place] [address] PCP - General Internal Medicine 06/16/23 Team Status: Active Member Role Status Dates Shaikh Kim MD Primary Care Provider Active Team Status: Inactive Member Role Status Dates Nida Woods APRN [employer]ATING [employer]ESS OPERATOR-C Primary Care Provider Active Start: July 18, [...] August 18, 2023 End: August 18, 2023 Team Status: Inactive Member Role Status Dates Shaikh Kim MD Primary Care Provider Active Start: September 01, 2023 End: September 01, 2023 Carlos Johnson MD Attending Provider Active Start: September 01, 2023 End: September 01, 2023 Team Status: Active Member Role Status Dates Shaikh Kim MD Primary Care Provider Active Start: September 01, 2023 Carlos Johnson MD Attending Provider, Other Provider Act pratik Start: September 01, 2023 Goals (unrecognized section and content) Goals [...] BE BASED ON THE PRIMARY CLINICAL RECORDS. [facility]. provides no warranty or guarantee of the accuracy or completeness of information in this document.
[2023-10-06 10:28] LABS: Hematocrit 46.8 % (42.0-54.0); Hemoglobin 15.7 g/dL (14.0-18.0); Mean Corpuscular HGB Conc 33.5 g/dL (29.9-35.2); Mean Corpuscular Hemoglobin 27.4 pg (25.9-34.0); Mean Corpuscular Volume 81.8 fL (80.0-94.0); Platelet Count 349 10^3/uL (150-450); Red Blood Count 5.72 10^6/uL (4.70-6.10); Red Cell Distribution Width 13.1 % (11.0-15.0); White Blood Count 6.8 10^3/uL (4.0-11.0)
[2023-10-06 10:53] LABS: Albumin Level 3.7 g/dL (3.4-5.0); Anion Gap 10.5; BUN Creatinine Ratio 11.1; Calcium 8.9 mg/dL (8.5-10.1); Carbon Dioxide 31.8 mmol/L (21.0-32.0); Chloride 102 mmol/L (98-107); Estimated GFR (African America >60 (>=60); Estimated GFR (Non-African Ame >60 (>=60); Glucose 95 mg/dL (74-106); Magnesium 1.5 mg/dL (1.8-2.4); Phosphorus 2.3 mg/dL (2.6-4.7); Potassium 4.3 mmol/L (3.5-5.1); Sodium 140 mmol/L (136-145)
== END 2023-10-06 09:29 | disposition home or self-care (01) ==
LOC: LAB 09:34
PROVIDERS: PCP Internal Medicine; Visit Provider Internal Medicine
DX: E83.42 Hypomagnesemia (principal); E87.6 Hypokalemia
CPT/HCPCS: 36415; 80069; 83735; 85027

== ENCOUNTER 2023-10-26 10:00 | Outpatient (OUT) | payer OTHER, SELFPAY ==
--- OUTSIDE RECORDS SUMMARY | 2023-10-26 10:26 | XMS_ITS | CCD ---
Author Organization [facility] Care Team Providers Care 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 Name Role Phone OSINOWO, OSIYEMI Unavailable Unavailable OSINOWO, OSIYEMI Unavailable Unavailable NADAUD, ESTUARDO Unavailable Unavailable NADAUD, ESTUARDO Unavailable Unavailable MAVERICK, MARBELLA Unavailable Unavailable MAVERICK, MARBELLA Unavailable Unavailable DAQUAN, GRICEL Unavailable Unavailable DAQUAN, GRICEL Unavailable Unavailable Andra, Marcelino Unavailable Unavailable Unavailable Chuck, Nida A Admitting Unavailable Chuck, Nida A Attending Unavailable Chuck UNHAIRING MACHINE OPERATOR-C, Nida A Primary Care Unavailable Chuck, Nida A Attending Unavailable Chuck UNHAIRING MACHINE OPERATOR-C, Nida A Primary Care Unavailable Chuck, Nida A Admitting Unavailable Chuck, Nida A Attending Unavailable Chuck UNHAIRING MACHINE OPERATOR-C, Ndia A Primary Care Unavailable Chuck, Nida A Attending Unavailable Chuck, Nida A Admitting Unavailable Chuck UNHAIRING MACHINE OPERATOR-C, Nida A Primary Care Unavailable ANDRA, [...] Unavailable MARCELINO, DR ESTUARDO Marquez Consulting Unavailable CHCUK, NIDA Primary Care Unavailable MULLEN ., DR HALIMA Martell Admitting Unavailable MULLEN ., DR HALIMA Martell Attending Unavailable MINDY FAN Consulting Unavailable NEFCYONIEL Consulting Unavailable ANDRA, MARCELINO Admitting Unavailable ANDRA, MARCELINO Attending Unavailable CHUCK, NIDA Primary Care Unavailable Asaad, Imad Unavailable Raza Alvarez MDikh Primary Care Provider [phone] MD Carlos Johnson Attending Provider MD Raza Alvarezikh Primary Care Provider KIM VELASQUEZ Attending Unavailable FRANCE REINA Attending Unavailable FAWWAD, VELASQUEZ Referring Unavailable BRINKOSVALDO Attending Unavailable FAWWAD, VELASQUEZ Referring Unavailable FRANCE REINA Attending Unavailable FAWWAD, VELASQUEZ Referring Unavailable BROSVALDO GRAY Attending Unavailable FAWWAD, VELASQUEZ Referring Unavailable BROSVALDO GRAY Attending Unavailable FAWWAD, VELASQUEZ Referring Unavailable BROSVALDO GRAY Attending Unavailable FAWWAD, VELASQUEZ Referring Unavailable NASTONFRANCE [...] (Original) aMILoride hydrochloride 5 mg oral tablet (18 sources) Potassium-sparin g Diuretic Start: 07-18-2023 take 10 mg by mouth twice daily Amiloride Active 10 MG PO Twice daily July 18, 2023 12:00am take 2 tablets by mouth in the m orning aMILoride (Midamor) 5 MG tablet Take 10 mg by mouth in the morning and 10 mg before bedtime. 0 Active take 2 tablets [address] [facility] every twelve hours magnesium chloride 535 mg [...] 12-25-2018 magnesium oxide 400 mg oral capsule (6 sources) Start: 07-18-2023 take 800 mg by mouth twice daily Magnesium Oxide Active 800 MG PO Twice daily July 18, 2023 12:00am Magnesium Oxide 400 MG CAPS TAKE 2 CAPSULE Twice daily Quantity: 0 Refills: 0 Ordered: 02-Dec-2021 DO Active omeprazole 40 mg delayed release oral capsule (2 sources) Proton Pump Inhibitor Start: 09-01-2023 take 40 mg by mouth once daily Omeprazole Active 40 MG PO Daily 56 56 September 01, 2023 12:00am potassium chloride 20 meq extended release oral tablet (18 sources) Start: 07-18-2023 take 6 tablets by mouth twice daily Potassium Chloride Active 0 PO Twice daily July 18, 2023 12:00am 6 tablets orally twice daily; Start: 11-25-2022 potassium chlo ride CR (K-Tab) 20 MEQ ER tablet take 6 tablets [address] [facility] every twelve hours Potassium Chloride ER 20 MEQ 6 tablets Orally bid for 90 day(s) Active take 6 tablets [address] 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; Translations: [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] Onset: 06-07-2017 Chronic Other gastrointestinal disorders (6 sources) Diarrhea; Translations: [Diarrhea, unspecified] 07-18-2023 Episodic [...] Episodic Other nutritional; endocrine; and metabolic disorders (13 sources) Gitelman syndrome; 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 Other nutritional; endocrine; and metabolic disorders (11 sources) Hypomagnesemia; Translations: [Disorders of magnesium metabolism] Onset: 03-25-2021 Resolved: 11-11-2021 Chronic Other nutritional; endocrine; and metabolic disorders (2 sources) Obesity; Translations: [Obesity, unspecified] Chronic Other nutritional; endocrine; and metabolic disorders (3 sources) Hypomagnesemia; Translations: [Disorders of magnesium metabolism] 10-06-2023 Chronic Other nutritional; endocrine; and metabolic disorders [...] 11-08-2021 Episodic Other aftercare (1 source) Other custodial (current) drug therapy; Translations: [OTH GROUP HOME CURRENT DRUG THERAPY] Onset: 10-14-2021 Episodic Other [...] Test Name Value Interpretation Reference Range Facility Erythrocyte distribution wid th Auto (RBC) [Ratio]on 10-06-2023 Erythrocyte distribution width (RBC) [Ratio] 13.1 % 11.0-15.0 [facility] Estimated glomerular filtrat ion rate (GFR) non- Americanon 10-06-2023 GFR/1.73 sq M.predicted among non-blacks MDRD (S/P/Bld) [Vol rate/Area] mL/min/{1.73_m2} >=60 [facility] Hematocrit Auto (Bld) [Volum e fraction]on 10-06-2023 Hematocrit (Bld) [Volume fraction] 46.8 % 42.0-54.0 [facility] Hemoglobin [Mass/volume] in Bloodon 10-06-2023 Hemoglobin (Bld) [Mass/Vol] 15.7 g/dL 14.0-18.0 [facility] Laboratory - Chemistry and C hemistry - challengeon 10-06-2023 Albumin [Mass/Vol] 3.7 g/dL 3.4-5.0 [facility] Calcium [Mass/Vol] 8.9 mg/dL 8.5-10.1 [facility] Chloride [Moles/Vol] 102 mmol/L 98-107 [facility] CO2 [Moles/Vol] 31.8 mmol/L 21.0-32.0 [facility] Creatinine [Mass/Vol] 0.81 mg/dL 0.70-1.30 [facility] GFR/1.73 sq M.predicted MDRD (S/P/Bld) [Vol rate/Area] mL/min/{1.73_m2} >=60 [facility] Glucose [Mass/Vol] 95 mg/dL 74-106 [facility] Magnesium [Mass/Vol] 1.5 mg/dL 1.8-2.4 [facility] Potassium [Moles/Vol] 4.3 mmol/L 3.5-5.1 [facility] Sodium [Moles/Vol] 140 mmol/L 136-145 [facility] Urea nitrogen [Mass/Vol] 9.0 mg/dL 7.0-18.0 [facility] Urea nitrogen/Creatinine [Mass ratio] 11.1 mg/mg [facility] Leukocytes [#/volume] correc augusto for nucleated erythrocytes in Blood by Automated counon 10-06-2023 WBC corrected for nucl RBC Auto (Bld) [#/Vol] 6.8 10 3/uL 4.0-11.0 [facility] MCH Auto (RBC) [Entitic mass ]on 10-06-2023 MCH (RBC) [Entitic mass] 27.4 pg 25.9-34.0 [facility] MCHC Auto (RBC) [Mass/Vol]on 10-06-2023 MCHC (RBC) [Mass/Vol] 33.5 g/dL 29.9-35.2 [facility] MCV Auto (RBC) [Entitic vol] on 10-06-2023 MCV (RBC) [Entitic vol] 81.8 fL 80.0-94.0 [facility] No Panel Informationon 10-05 Phosphorus Level 2.3 mg/dL 2.6-4.7 [facility] Platelet mean volume Auto (B ld) [Entitic vol]on 10-06-2023 Platelet mean volume (Bld) [Entitic vol] 9.0 fL 9.5-13.5 [facility] Platelets Auto (Bld) [#/Vol] on 10-06-2023 Platelets (Bld) [#/Vol] 349 10 3/uL 150-450 [facility] RBC Auto (Bld) [#/Vol]on RBC (Bld) [#/Vol] 5.72 10 6/uL 4.70-6.10 [facility] Serum or plasma anion gap de terminationon 10-06-2023 Anion gap [Moles/Vol] 10.5 mmol/L [facility] 09-01-2023 L Specimen: [id number] Received: 09/02/23 Status: MICHELLE De Guzman Num: [id number] Spec Type: Surgical Subm Dr: Carlos Johnson MD Tissues: A Duodenum - Biopsy (DUODENUM BX) B GASTRIC FOR HP (GASTRIC HP) C Esophagus Biopsy (ESOPHAGEAL BX) Procedures: HE/6, Gross/Micro L4/3, H PYLORI, IHC First AB Age/ Patient Sex Location Account Attending Physician Wood Horn 27/M [id number] Carlos Johnson MD SPEC NUM: [id number] RECD: 09/02/23 STATUS: MICHELLE DE GUZMAN NUM: [id number] ALLEN: 09/01/23 DR: Carlos Johnson MD ENTERED: 09/02/23 [facility] DR: SPEC TYPE: Surgical DEPT: S ORDERED: [...] cm, entirely submitted in A1. -------- Specimen: [id number] Received: 09/02/23 Status: UDAYMoise De Guzman Num: [id number] Spec Type: Surgical Subm Dr: Carlos Johnson MD Tissues: A Duodenum - Biopsy (DUODENUM BX) B GASTRIC FOR HP (GASTRIC HP) C Esophagus Biopsy (ESOPHAGEAL BX) Procedures: HE/6, Gross/Micro L4/3, H PYLORI, IHC First AB -------- Patient: Wood Horn [id number] (Continued) -------- Specimen: Received: 09/02/23 (Continued) Gross Description (Continued) Signed (signature on file) Jaylen Caputo MD 09/06/23 1642 -------- Specimen: Received: 09/02/23 Status: MICHELLE De Guzman Num: [id number] Spec Type: Surgical Subm Dr: Carlos Johnson MD Tissues: A Duodenum - Biopsy (DUODENUM BX) B GASTRIC FOR HP (GASTRIC HP) C Esophagus Biopsy (ESOPHAGEAL BX) Procedures: HE/6, Gross/Micro L4/3, H PYLORI, IHC First AB -------- Patient: Wood Horn [id number] (Continued) -------- Specimen: [id number] Received: 09/02/23 (Continued) Gross Description (Continued) B. [...] H. pylori, rule out EOE CPT Codes 46025g4, 91174 -------- -------- Specimen: [id number] Received: 09/02/23 Status: MICHELLE De Guzman Num: [id number] Spec Type: Surgical Subm Dr: Carlos Johnson MD Tissues: A Duodenum - Biopsy (DUODENUM BX) B GASTRIC FOR HP (GASTRIC HP) C Esophagus Biopsy (ESOPHAGEAL BX) Procedures: HE/6, Gross/Micro L4/3, H PYLORI, IHC First AB -------- Patient: Wood Horn [id number] (Continued) -------- Signed (signature on file) Jaylen Caputo MD 09/06/231641 Normal [facility] Magnesium [Mass/volume] in S joon or PlasmaOrdered By: Carlos Johnson on 09-01-2023 Magnesium [Mass/Vol] 1.1 mg/dL 1.9-2.7 [facility] Comment on above: Result Comment: PERF ORMED BY: [facility] [address] [place] [address] PATHOLOGIST MANAGER SALES TRAINING LIEN TAN M.D. Performed By: #### M G, K #### [facility] [address] [place] [id number] [facility] Potassium [Moles/volume] in Serum or PlasmaOrdered By: Imad Asaad on 09-01-2023 Potassium [Moles/Vol] 3.6 mmol/L 3.5-5.1 [facility] Comment on above: Hemolysis is present at a level that could interfere with the result. Result Comment: Hemo lysis is present at a level that could interfere with the result. Performed By: #### M Cheryl, K #### [place] [id number] [facility] Arterial blood standard base excess determination by calculationOrdered By: Imad Asaad on 08-18-2023 Base excess standard Calc (BldA) [Moles/Vol] 9 mmol/L -2-3 [facility] Basophil percentageOrdered B y: Imad Asaad on 08-18-2023 Basophil percentage 46.3 mm[Hg] 35-51 [facility] Basophil percentage 36 mm[Hg] 80-105 [facility] Blood carbon dioxide, total measurement by calculation (moles/volume)Ordered By: Imad Asaad on 08-18-2023 CO2 Calc (Bld) [Moles/Vol] 34 mmol/L 23-[address] [facility] [address] biopsyOrdered By: Imad As aad on 08-18-2023 Hematocrit (Bld) [Volume fraction] 49.0 % 38.0-51.0 [facility] Glucose Glucometer (BldC) [M ass/Vol]Ordered By: Imad Asaad on 08-18-2023 Glucose [Mass/Vol] 95 mg/dL 70-105 [facility] Hemoglobin Calc (Bld) [Mass/ Vol]Ordered By: Imad Asaad on 08-18-2023 Hemoglobin (Bld) [Mass/Vol] 16.7 g/dL 12.0-17.0 [facility] ISTAT ABGon 08-18-2023 CO2 [Moles/Vol] 34 mmol/L High 23-29 [facility] Comment on above: Performed By: #### I SABG #### [address] Glucose [Mass/Vol] 95 mg/dL Normal 70-105 [facility] Comment on above: Result Comment: PERF ORMED BY: [place] [address] PATHOLOGIST MANAGER SALES TRAINING LIEN TAN M.D. Performed By: #### I SABG #### [address] HCO3 (Bld) [Moles/Vol] 32.9 mmol/L High 22.0-28.0 [facility] Comment on above: Performed By: #### I SABG #### [address] Hematocrit (Bld) [Volume fraction] 49.0 % Normal 38.0-51.0 [facility] Comment on above: Performed By: #### I SABG #### [address] Hemoglobin (Bld) [Mass/Vol] 16.7 g/dL Normal 12.0-17.0 [facility] Comment on above: Performed By: #### I SABG #### [address] ISTAT Base Excess 9 mmol/L High -2 TO 3 [facility] Comment on above: Performed By: #### I SABG #### [address] ISTAT Ionized Calcium 1.14 mol/L Normal 1.12-1.32 [facility] Comment on above: Performed By: #### I SABG #### [place] [address] [place] ISTAT PCO2 46.3 mm[Hg] Normal 35-51 [facility] Comment on above: Performed By: #### I SABG #### [address] ISTAT Ph 7.460 High 7.31-7.45 [facility] Comment on above: Performed By: #### I SABG #### [facility] [address] [place] [address] [place] ISTAT PO2 36 mm[Hg] Low 80-105 [facility] Comment on above: Performed By: #### I SABG #### [facility] [address] [place] [address] [place] Oxygen saturation in Blood 72 % Low 95-98 [facility] Comment on above: Result Comment: Refe rence ranges reflect baseline specimens only Performed By: #### I SABG #### [facility] [address] Potassium [Moles/Vol] 2.5 mmol/L Off scale low 3.5-4.9 [facility] Comment on above: Performed By: #### I SABG #### [facility] [address] Sodium [Moles/Vol] 139 mmol/L Normal 138-146 [facility] Comment on above: Performed By: #### I SABG #### [facility] [address] [place] [address] [place] Potassium (Bld) [Moles/Vol]O rdered By: Carlos Johnson on 08-18-2023 Potassium [Moles/Vol] 2.5 mmol/L 3.5-4.9 [facility] Sodium (Bld) [Moles/Vol]Orde red By: Imad Asaad on 08-18-2023 Sodium [Moles/Vol] 139 mmol/L 138-146 [facility] Whole blood bicarbonate ryan urementOrdered By: Imad Asaad on 08-18-2023 HCO3 (Bld) [Moles/Vol] 32.9 mmol/L 22.0-28.0 [facility] Whole blood ionized calcium measurement (moles/volume)Ordered By: Imkaren Johnson on 08-18-2023 Calcium.ionized (Bld) [Moles/Vol] 1140 mmol/L 1.12-1.32 [facility] Whole blood oxygen saturatio n measurementOrdered By: Carlos Patelad on 08-18-2023 Oxygen saturation in Blood 72 % 95-98 [facility] Comment on above: Reference ranges ref lect baseline specimens only Whole blood pHOrdered By: Im ad Asaad on 08-18-2023 pH (Bld) 7.460 Units 7.31-7.45 [facility] Alanine aminotransferase [En zymatic activity/volume] in Serum or PlasmaOrdered By: Imad Asaad on 07-23-2023 ALT [Catalytic activity/Vol] 30 U/L 7-52 [facility] Albumin [Mass/volume] in Ser um or Plasma by Bromocresol green (BCG) dye binding methoOrdered By: Imad Asaad on 07-23-2023 Albumin BCG dye [Mass/Vol] 4.4 g/dL 3.5-5.7 [facility] Alkaline phosphatase [Enzyma tic activity/volume] in Serum or PlasmaOrdered By: Imad Asaad on 07-23-2023 ALP [Catalytic activity/Vol] 87 U/L 34-104 [facility] Aspartate aminotransferase [ Enzymatic activity/volume] in Serum or PlasmaOrdered By: Imad Asaad on 07-23-2023 AST [Catalytic activity/Vol] 25 U/L 13-39 [facility] Basophils Auto (Bld) [#/Vol] Ordered By: Imad Asaad on 07-23-2023 Basophils (Bld) [#/Vol] 0.1 10*3/uL 0.0-0.2 [facility] Basophils/100 WBC Auto (Bld) Ordered By: Imad Asaad on 07-23-2023 Basophils/100 WBC (Bld) 0.7 % . [facility] Bilirubin.total [Mass/volume ] in Serum or PlasmaOrdered By: Imad Asaad on 07-23-2023 Bilirubin [Mass/Vol] 0.7 mg/dL 0.3-1.0 [facility] Calcium [Mass/volume] in Ser um or PlasmaOrdered By: Imad Asaad on 07-23-2023 Calcium [Mass/Vol] 9.2 mg/dL 8.6-10.3 [facility] Carbon dioxide, total [Moles /volume] in Serum or PlasmaOrdered By: Imad Asaad on 07-23-2023 CO2 [Moles/Vol] 34.0 mmol/L 21.0-31.0 [facility] Chloride [Moles/volume] in S joon or PlasmaOrdered By: Carlos Johnson on 07-23-2023 Chloride [Moles/Vol] 98 mmol/L 98-107 [facility] Complete Blood Count Auto Di ffon 07-23-2023 Basophils (Bld) [#/Vol] 0.1 10*3/uL Normal 0.0-0.2 [facility] Comment on above: Result Comment: PERF ORMED BY: [place] [address] PATHOLOGIST MANAGER SALES TRAINING LIEN TAN M.D. Performed By: #### C MP, CBC, LIPASE #### [address] Basophils/100 WBC (Bld) 0.7 % Normal . T gil [facility] Comment on above: Performed By: #### C MP, CBC, LIPASE #### [address] Eosinophils (Bld) [#/Vol] 0.4 10*3/uL Normal 0.0-0.45 [facility] Comment on above: Performed By: #### C MP, CBC, LIPASE #### [address] Eosinophils/100 WBC (Bld) 4.2 % Normal . [facility] Comment on above: Performed By: #### C MP, CBC, LIPASE #### [address] Erythrocyte distribution width (RBC) [Ratio] 14.0 % Normal 12.0-14.8 [facility] Comment on above: Performed By: #### C MP, CBC, LIPASE #### [address] Hematocrit (Bld) [Volume fraction] 43.7 % Normal 38.8-50.0 [facility] Comment on above: Performed By: #### C MP, CBC, LIPASE #### [address] Hemoglobin (Bld) [Mass/Vol] 15.1 g/dL Normal 13.0-17.0 [facility] Comment on above: Performed By: #### C MP, CBC, LIPASE #### [address] Lymphocytes (Bld) [#/Vol] 2.2 10*3/uL Normal 1.00-4.8 [facility] Comment on above: Performed By: #### C MP, CBC, LIPASE #### [address] Lymphocytes/100 WBC (Bld) 24.3 % Normal . [facility] Comment on above: Performed By: #### C MP, CBC, LIPASE #### [address] MCH (RBC) [Entitic mass] 27.7 pg Normal 27.5-35.2 [facility] Comment on above: Performed By: #### C MP, CBC, LIPASE #### [address] MCV (RBC) [Entitic vol] 80.1 fL Low 83.5-101 [facility] Comment on above: Performed By: #### C MP, CBC, LIPASE #### [address] Mean Corpuscular HGB Conc 34.6 g/dL Normal 32.5-35.6 [facility] Comment on above: Performed By: #### C MP, CBC, LIPASE #### [address] Monocytes (Bld) [#/Vol] 0.6 10*3/uL Normal 0.0-0.8 [facility] Comment on above: Performed By: #### C MP, CBC, LIPASE #### [address] Monocytes/100 WBC (Bld) 6.9 % Normal . [facility] Comment on above: Performed By: #### C MP, CBC, LIPASE #### [address] [place] [address] [place] Neutrophils (Bld) [#/Vol] 5.8 10*3/uL Normal 1.8-7.7 [facility] Comment on above: Performed By: #### C MP, CBC, LIPASE #### [facility] [address] Neutrophils/100 WBC (Bld) 63.9 % Normal . [facility] Comment on above: Performed By: #### C MP, CBC, LIPASE #### [facility] [address] NRBC% 0.0 /100{WBC} Normal 0-0.5 [facility] Comment on above: Performed By: #### C MP, CBC, LIPASE #### [address] Platelet mean volume (Bld) [Entitic vol] 7.2 fL Normal 6.6-10.1 [facility] Comment on above: Performed By: #### C MP, CBC, LIPASE #### [address] Platelets (Bld) [#/Vol] 353 10*3/uL Normal 150-450 [facility] Comment on above: Performed By: #### C MP, CBC, LIPASE #### [address] RBC (Bld) [#/Vol] 5.46 10*6/uL Normal 3.90-5.60 [facility] Comment on above: Performed By: #### C MP, CBC, LIPASE #### [place] [address] [place] WBC (Bld) [#/Vol] 9.0 10*3/uL Normal 4.1-10.5 [facility] Comment on above: Performed By: #### C MP, CBC, LIPASE #### [address] Comprehensive Metabolic Pane félxi 07-23-2023 Albumin [Mass/Vol] 4.4 g/dL Normal 3.5-5.7 [facility] Comment on above: Performed By: #### C MP, CBC, LIPASE #### [address] Albumin/Globulin [Mass ratio] 1.5 {ratio} Normal [facility] Comment on above: Performed By: #### C MP, CBC, LIPASE #### [address] ALP [Catalytic activity/Vol] 87 U/L Normal 34-104 [facility] Comment on above: Performed By: #### C MP, CBC, LIPASE #### [address] ALT [Catalytic activity/Vol] 30 U/L Normal 7-52 [facility] Comment on above: Performed By: #### C MP, CBC, LIPASE #### [address] Anion gap [Moles/Vol] 11.8 mmol/L Normal 6.0-15.0 [facility] Comment on above: Performed By: #### C MP, CBC, LIPASE #### [address] AST [Catalytic activity/Vol] 25 U/L Normal 13-39 [facility] Comment on above: Performed By: #### C MP, CBC, LIPASE #### [place] [address] [place] Bilirubin [Mass/Vol] 0.7 mg/dL Normal 0.3-1.0 [facility] Comment on above: Performed By: #### C MP, CBC, LIPASE #### [place] [address] [place] Calcium [Mass/Vol] 9.2 mg/dL Normal 8.6-10.3 [facility] Comment on above: Performed By: #### C MP, CBC, LIPASE #### [address] Chloride [Moles/Vol] 98 mmol/L Normal 98-107 [facility] Comment on above: Performed By: #### C MP, CBC, LIPASE #### [facility] [address] CO2 [Moles/Vol] 34.0 mmol/L High 21.0-31.0 [facility] Comment on above: Performed By: #### C MP, CBC, LIPASE #### [address] Creatinine [Mass/Vol] 0.73 mg/dL Normal 0.70-1.30 [facility] Comment on above: Performed By: #### C MP, CBC, LIPASE #### [address] GFR/1.73 sq M.predicted MDRD (S/P/Bld) [Vol rate/Area] mL/min/{1.73_m2} Normal [facility] Comment on above: Performed By: #### C MP, CBC, LIPASE #### [address] Globulin (S) [Mass/Vol] 2.9 g/dL Normal T [facility] Comment on above: Performed By: #### C MP, CBC, LIPASE #### [address] Glucose [Mass/Vol] 92 mg/dL Normal 70-100 [facility] Comment on above: Result Comment: [facility] Glucose Reference Range is dependent on time and content of last meal. Glucose of more than 200 mg/dL in a nonstressed, ambulatory subject supports the diagnosis of Diabetes Mellitus. ADA recommended reference range Performed By: #### C MP, CBC, LIPASE #### [address] Potassium [Moles/Vol] 2.8 mmol/L Off scale low 3.5-5.1 [facility] Comment on above: Result Comment: Crit ical Result Called to and read back by: HALIMA CHAVEZ at: 07/23/2023 11:41:15 by:[id number] Performed By: #### C MP, CBC, LIPASE #### [place] [id number] [place] Protein [Mass/Vol] 7.3 g/dL Normal 6.4-8.9 [facility] Comment on above: Performed By: #### C MP, CBC, LIPASE #### [facility] [address] Sodium [Moles/Vol] 141 mmol/L Normal 136-145 [facility] Comment on above: Performed By: #### C MP, CBC, LIPASE #### [facility] [address] Urea nitrogen [Mass/Vol] 13 mg/dL Normal 7-25 [facility] Comment on above: Performed By: #### C MP, CBC, LIPASE #### [facility] [address] Creatinine [Mass/volume] in Serum or PlasmaOrdered By: Imad Asaad on 07-23-2023 Creatinine [Mass/Vol] 0.73 mg/dL 0.70-1.30 [facility] [facility] Eosinophils Auto (Bld) [#/Vo l]Ordered By: Imad Asaad on 07-23-2023 Eosinophils (Bld) [#/Vol] 0.4 10*3/uL 0.0-0.45 [facility] Eosinophils/100 WBC Auto (Bl d)Ordered By: Imad Asaad on 07-23-2023 Eosinophils/100 WBC (Bld) 4.2 % . [facility] Erythrocyte distribution wid th Auto (RBC) [Ratio]Ordered By: Imad Asaad on 07-23-2023 Erythrocyte distribution width (RBC) [Ratio] 14.0 % 12.0-14.8 [facility] Globulin Calc (S) [Mass/Vol] Ordered By: Imad Asaad on 07-23-2023 Globulin (S) [Mass/Vol] 2.9 g/dL [facility] Glucose [Mass/volume] in Ser um or PlasmaOrdered By: Imad Asaad on 07-23-2023 Glucose [Mass/Vol] 92 mg/dL 70-100 [facility] Comment on above: ADA recommended refe rence rangeRandom Glucose Reference Range is dependent on time and content of last meal. Glucose of more than 200 mg/dL in a nonstressed, ambulatory subject supports the diagnosis of Diabetes Mellitus. Hematocrit Auto (Bld) [Volum e fraction]Ordered By: Imad Asaad on 07-23-2023 Hematocrit (Bld) [Volume fraction] 43.7 % 38.8-50.0 [facility] Hemoglobin [Mass/volume] in BloodOrdered By: Imad Asaad on 07-23-2023 Hemoglobin (Bld) [Mass/Vol] 15.1 g/dL 13.0-17.0 [facility] Leukocytes [#/volume] correc augusto for nucleated erythrocytes in Blood by Automated counOrdered By: Imad Asaad on 07-23-2023 WBC corrected for nucl RBC Auto (Bld) [#/Vol] 9.0 10*3/uL 4.1-10.5 [facility] Lipaseon 07-23-2023 Lipase [Catalytic activity/Vol] 39.0 U/L Normal 11.0-82.0 [facility] Comment on above: Result Comment: PERF ORMED BY: [place] [address] PATHOLOGIST MANAGER [employer]EN TAN M.D. Performed By: #### C MP, CBC, LIPASE #### [address] Lipase [Enzymatic activity/v olume] in Serum or PlasmaOrdered By: Imad Asaad on 07-23-2023 Lipase [Catalytic activity/Vol] 39.0 U/L 11.0-82.0 [facility] Lymphocytes Auto (Bld) [#/Vo l]Ordered By: Imad Asaad on 07-23-2023 Lymphocytes (Bld) [#/Vol] 2.2 10*3/uL 1.00-4.8 [facility] Lymphocytes/100 WBC Auto (Bl d)Ordered By: Imad Asaad on 07-23-2023 Lymphocytes/100 WBC (Bld) 24.3 % . [facility] MCH Auto (RBC) [Entitic mass ]Ordered By: Imad Asaad on 07-23-2023 MCH (RBC) [Entitic mass] 27.7 pg 27.5-35.2 [facility] MCHC Auto (RBC) [Mass/Vol]Or dered By: Imad Asaad on 07-23-2023 MCHC (RBC) [Mass/Vol] 34.6 g/dL 32.5-35.6 [facility] MCV Auto (RBC) [Entitic vol] Ordered By: Imad Asaad on 07-23-2023 MCV (RBC) [Entitic vol] 80.1 fL 83.5-101 [facility] Monocytes Auto (Bld) [#/Vol] Ordered By: Imad Asaad on 07-23-2023 Monocytes (Bld) [#/Vol] 0.6 10*3/uL 0.0-0.8 [facility] Monocytes/100 WBC Auto (Bld) Ordered By: Imad Asaad on 07-23-2023 Monocytes/100 WBC (Bld) 6.9 % . [facility] Neutrophils Auto (Bld) [#/Vo l]Ordered By: Imad Asaad on 07-23-2023 Neutrophils (Bld) [#/Vol] 5.8 10*3/uL 1.8-7.7 [facility] Neutrophils/100 WBC Auto (Bl d)Ordered By: Imad Asaad on 07-23-2023 Neutrophils/100 WBC (Bld) 63.9 % . [facility] No Panel InformationOrdered By: Imad Asaad on 07-23-2023 Estimated GFR (CKD-EPI) > 60.0 mL/Min [facility] Creatinine Clearance (Chem N/A [facility] Nucleated erythrocytes [Pres ence] in Blood by Automated countOrdered By: Imad Asaad on 07-23-2023 Nucleated RBC Auto Ql (Bld) 0.0 /100{WBC} 0-0.5 [facility] Platelet mean volume Auto (B ld) [Entitic vol]Ordered By: Imad Asaad on 07-23-2023 Platelet mean volume (Bld) [Entitic vol] 7.2 fL 6.6-10.1 [facility] Platelets Auto (Bld) [#/Vol] Ordered By: Imad Asaad on 07-23-2023 Platelets (Bld) [#/Vol] 353 10*3/uL 150-450 [facility] Potassium [Moles/volume] in Serum or PlasmaOrdered By: Imad Asaad on 07-23-2023 Potassium [Moles/Vol] 2.8 mmol/L 3.5-5.1 [facility] Comment on above: Critical Result Call ed to and read back by: HALIMA CHAVEZ at: 07/23/2023 11:41:15 by:[id number] Protein [Mass/volume] in Ser um or PlasmaOrdered By: Imad Asaad on 07-23-2023 Protein [Mass/Vol] 7.3 g/dL 6.4-8.9 [facility] RBC Auto (Bld) [#/Vol]Ordere d By: Imad Asaad on 07-23-2023 RBC (Bld) [#/Vol] 5.46 10*6/uL 3.90-5.60 [facility] Serum or plasma albumin/glob ulin mass ratioOrdered By: Imad Asaad on 07-23-2023 Albumin/Globulin [Mass ratio] 1.5 {ratio} [facility] Serum or plasma anion gap de terminationOrdered By: Imad Asaad on 07-23-2023 Anion gap [Moles/Vol] 11.8 mmol/L 6.0-15.0 [facility] Sodium [Moles/volume] in Ser um or PlasmaOrdered By: Imad Asaad on 07-23-2023 Sodium [Moles/Vol] 141 mmol/L 136-145 [facility] US abdomen completeon 2023 US abdomen complete [place] [address] Ultrasound Report Signed Patient: Wood Horn MR#: [id number] : 1995 Acct:[id number] Age/Sex: 27 / M ADM Date: 07/23/23 Loc: UL Room: Type: [facility] Attending Dr: Carlos Johnson MD Ordering [...] Estuardo Saravia M.D.07/23/2023 10:53 AM Dictation Location: [place] [address] Tech: Marlee Funez Transcribed By: ORLANDO 07/23/23 1053 Dictated By: Estuardo Saravia II, MD 07/23/23 1047 Signed By: 07/23/23 1053 Normal [facility] Urea nitrogen [Mass/volume] in Serum or PlasmaOrdered By: Carlos Johnson on 07-23-2023 Urea nitrogen [Mass/Vol] 13 mg/dL 7-25 [facility] WBC Auto (Bld) [#/Vol]Ordere d By: Imad Asaad on 07-23-2023 WBC (Bld) [#/Vol] 9.0 10*3/uL 4.1-10.5 [facility] Magnesiumon 11-25-2022 Magnesium [Mass/Vol] 1.1 mg/dL [facility] [employer] Other Renal Function Panelon 11-25 Albumin [Mass/Vol] 3.9 g/dL [facility] [employer] Other Calcium [Mass/Vol] 8.8 mg/dL [facility] [employer] Other Chloride [Moles/Vol] 96 mmol/L [facility] [employer] Other CO2 [Moles/Vol] 32.9 mmol/L [facility] [employer] Other Creatinine [Mass/Vol] 0.83 mg/dL [facility] [employer] Other Glucose [Mass/Vol] 138 mg/dL [facility] [employer] Other Phosphate [Mass/Vol] 4.0 mg/dL [facility] [employer] Other Potassium [Moles/Vol] 2.4 mmol/L [facility] [employer] Other Sodium [Moles/Vol] 139 mmol/L [facility] [employer] Other Urea nitrogen [Mass/Vol] 13.0 mg/dL [employer] Other Renal Function Panel [facility] [employer] Other Renal Function Panel >60 [facility] [employer] Other GLYCOHEMOGLOBIN A1Con 2022 ADA RECOMMENDATION SEE BELOW Normal [facility] Comment on above: Result Comment: ADA RECOMMENDED LIMIT 4.0 - 6.0 ADA THERAPEUTIC TARGET < 7.0 ACTION SUGGESTED > 7.0 Performed By: #### A 1C #### [facility] [address] [place] [address] Dr. Jossue Centeno Glucose [Mass/Vol] 108 mg/dL Normal [facility] Comment on above: Performed By: #### A 1C #### [facility] [address] [place] [address] Dr. Jossue Centeno HbA1c (Bld) [Mass fraction] 5.4 % Normal 4.5-6.2 [facility] Comment on above: Performed By: #### A 1C #### [facility] [address] [place] [address] Dr. Jossue Centeno Outside Recordson 01-28-2022 Outside Records [id number] .00OTGTIFF Normal [facility] CBC AUTO DIFFon 01-27-2022 BASO # 0.1 103/ul Normal 0.0-0.1 [facility] Comment on above: Performed By: #### C BC #### [facility] [address] [place] [address] Dr. Jossue Centeno Basophils/100 WBC (Bld) 0.8 % Normal 0.2-2.0 [facility] Comment on above: Performed By: #### C BC #### [facility] [address] [place] [address] Dr. Jossue Centeno EO # 0.6 103/ul Normal 0.0-0.7 [facility] Comment on above: Performed By: #### C BC #### [facility] [address] [place] [address] Dr. Jossue Centeno Eosinophils/100 WBC (Bld) 5.8 % Normal 0.9-7.0 [facility] Comment on above: Performed By: #### C BC #### [facility] [address] [place] [address] Dr. Jossue Centeno Erythrocyte distribution width (RBC) [Ratio] 12.4 % Normal 11.0-15.0 [facility] Comment on above: Performed By: #### C BC #### [facility] [address] [place] [address] Dr. Jossue Centeno Hematocrit (Bld) [Volume fraction] 47.4 % Normal 42.0-54.0 [facility] Comment on above: Performed By: #### C BC #### [facility] [address] [place] [address] Dr. Jossue Centeno Hemoglobin (Bld) [Mass/Vol] 16.7 g/dL Normal 14.0-18.0 [facility] Comment on above: Performed By: #### C BC #### [facility] [address] [place] [address] Dr. Jossue Centeno IG # 0.02 10e3/ul Normal 0.00-0.03 [facility] Comment on above: Performed By: #### C BC #### [facility] [address] [place] [address] Dr. Jossue Centeno IG % 0.2 % Normal 0.0-0.5 [facility] Comment on above: Performed By: #### C BC #### [facility] [address] [place] [address] Dr. Jossue Centeno LYMPH # 2.2 103/ul Normal 1.2-3.8 [facility] Comment on above: Performed By: #### C BC #### [facility] [address] [place] [address] Dr. Jossue Centeno Lymphocytes/100 WBC (Bld) 23.1 % Normal 20.5-60.0 [facility] Comment on above: Performed By: #### C BC #### [facility] [address] [place] [address] Dr. Jossue Centeno MANUAL DIFF REQ NO Normal [facility] Comment on above: Performed By: #### C BC #### [facility] [address] [place] [address] Dr. Jossue Centeno MCH (RBC) [Entitic mass] 28.2 pg Normal 25.9-34.0 [facility] Comment on above: Performed By: #### C BC #### [facility] [address] [place] [address] Dr. Jossue Centeno MCHC (RBC) [Mass/Vol] 35.2 g/dL Normal 29.9-35.2 [facility] Comment on above: Performed By: #### C BC #### [facility] [address] [place] [address] Dr. Jossue Centeno MCV (RBC) [Entitic vol] 79.9 fL Critically low 80.0-94. 0 [facility] Comment on above: Performed By: #### C BC #### [facility] [address] [place] [address] Dr. Jossue Centeno MONO # 0.7 103/ul Normal 0.3-0.8 [facility] Comment on above: Performed By: #### C BC #### [facility] [address] [place] [address] Dr. Jossue Centeno Monocytes/100 WBC (Bld) 7.6 % Normal 1.7-12.0 [facility] Comment on above: Performed By: #### C BC #### [facility] [address] [place] [address] Dr. Jossue Centeno NEUT # 5.9 103/ul Normal 1.4-6.5 [facility] Comment on above: Performed By: #### C BC #### [facility] [address] [place] [address] Dr. Jossue Centeno Neutrophils/100 WBC (Bld) 62.5 % Normal 43.0-75.0 [facility] Comment on above: Performed By: #### C BC #### [facility] [address] [place] [address] Dr. Jossue Centeno Platelet mean volume (Bld) [Entitic vol] 8.5 fL Critically low 9.5-13.5 [facility] Comment on above: Performed By: #### C BC #### [facility] [address] [place] [address] Dr. Jossue Centeno PLT 335 103/ul Normal 150-450 [facility] Comment on above: Performed By: #### C BC #### [facility] [address] [place] [address] Dr. Jossue Centeno RBC 5.93 106/ul Normal 4.70-6.10 [facility] Comment on above: Performed By: #### C BC #### [facility] [address] [place] [address] [address] Jossue Centeno WBC 9.5 103/ul Normal 4.0-11.0 [facility] Comment on above: Performed By: #### C BC #### [facility] [address] [place] [address] Dr. Jossue Centeno MAGNESIUMon 01-27-2022 Magnesium [Mass/Vol] 1.5 mg/dL Critically low 1.8-2.4 [facility] Comment on above: Performed By: #### K #### [facility] [address] [place] [address] Dr. Jossue Centeno PROF 14(COMP METB)on 022 Albumin [Mass/Vol] 4.1 g/dL Normal 3.4-5.0 [facility] Comment on above: Performed By: #### M Cheryl, CMP #### [facility] [address] [place] [address] Dr. Jossue Centeno Albumin/Globulin [Mass ratio] 1.0 {ratio} Normal [facility] Comment on above: Performed By: #### M Cheryl, CMP #### [facility] [address] [place] [address] Dr. Jossue Centeno ALP [Catalytic activity/Vol] 107 U/L Normal 46-116 [facility] Comment on above: Performed By: #### Isabell Luna, CMP #### [facility] [address] [place] [address] Dr. Jossue Centeno ALT [Catalytic activity/Vol] 50 U/L Normal 16-63 [facility] Comment on above: Performed By: #### M Cheryl, CMP #### [facility] [address] [place] [address] Dr. Jossue Centeno Anion gap [Moles/Vol] 12.1 mmol/L Normal [facility] Comment on above: Performed By: #### M G, CMP #### [facility] [address] [place] [address] Dr. Jossue Centeno AST [Catalytic activity/Vol] 25 U/L Normal 15-37 [facility] Comment on above: Performed By: #### M G, CMP #### [facility] [address] [place] [address] Dr. Jossue Centeno Bilirubin [Mass/Vol] 0.6 mg/dL Normal 0.2-1.0 [facility] Comment on above: Performed By: #### M G, CMP #### [facility] [address] [place] [address] Dr. Jossue Centeno Calcium [Mass/Vol] 9.3 mg/dL Normal 8.5-10.1 [facility] Comment on above: Performed By: #### M G, CMP #### [facility] [address] [place] [address] Dr. Jossue Centeno Chloride [Moles/Vol] 97 mmol/L Critically low 98-107 [facility] Comment on above: Performed By: #### M G, CMP #### [facility] [address] [place] [address] Dr. Jossue Centeno CO2 [Moles/Vol] 32.1 mmol/L Critically high 21.0-32.0 [facility] Comment on above: Performed By: #### M G, CMP #### [facility] [address] [place] [address] Dr. Jossue Centeno Creatinine [Mass/Vol] 0.76 mg/dL Normal 0.70-1.30 [facility] Comment on above: Performed By: #### M G, CMP #### [facility] [address] [place] [address] Dr. Jossue Centeno EGFR-AF GHANAIAN >60 Normal >=[address] [facility] Comment on above: Performed By: #### M G, CMP #### [facility] [address] [place] [address] Dr. Jossue Centeno EGFR-NON AF GHANAIAN >60 Normal >=60 [facility] Comment on above: Performed By: #### M G, CMP #### [facility] [address] [place] [address] Dr. Jossue Centeno Globulin (S) [Mass/Vol] 4.1 g/dL Normal [facility] Comment on above: Performed By: #### M G, CMP #### [facility] [address] [place] [address] [address] Jossue Centeno Glucose [Mass/Vol] 92 mg/dL Normal 74-106 [facility] Comment on above: Performed By: #### M G, CMP #### [facility] [address] [place] [address] Dr. Jossue Centeno Potassium [Moles/Vol] 3.2 mmol/L Critically low 3.5-5.1 [facility] Comment on above: Performed By: #### M G, CMP #### [facility] [address] [place] [address] Dr. Jossue Centeno Protein [Mass/Vol] 8.2 g/dL Normal 6.4-8.2 [facility] Comment on above: Performed By: #### M G, CMP #### [facility] [address] [place] [address] Dr. Jossue Centeno Sodium [Moles/Vol] 138 mmol/L Normal 136-145 [facility] Comment on above: Performed By: #### M G, CMP #### [facility] [address] [place] [address] Dr. Josuse Centeno Urea nitrogen [Mass/Vol] 11.0 mg/dL Normal 7.0-18.0 [facility] Comment on above: Performed By: #### M G, CMP #### [facility] [address] [place] [address] Dr. Jossue Centeno Urea nitrogen/Creatinine [Mass ratio] 14.5 mg/mg Normal [facility] Comment on above: Performed By: #### M G, CMP #### [facility] [address] [place] [address] Dr. Jossue Centeno Outside Recordson 12-08-2021 Outside Records [id number] .00OTGTIFF Normal [facility] Office Visit (Cardiology)on 12-02-2021 Follow-up visit Diagnoses/Problems Assessed Atypical chest pain (786.59) (R07.89) Cardiac enzymes elevated (790.5) (R74.8) Hypokalemia (276.8) (E87.6) Hypomagnesemia (275.2) (E83.42) Class 1 obesity with body mass index (BMI) of 31.0 to 31.9 in adult (278.00,V85.31) (E66.9,Z68.31) Never a smoker Orders Atypical chest pain Echocardiogram; Status:Hold For - Scheduling,Retrospect pratik Authorization; Requested for:[id number]; Atypical chest pain, Cardiac enzymes elevated, Hypokalemia, Hypomagnesemia Cardiac Stress Test; Status:Hold For - Scheduling,Retrospect pratik Authorization; Requested for:[id number]; Class 1 obesity with body mass index (BMI) of 31.0 to 31.9 in adult Healthy Weight Tips; Status:Complete - Retrospective Authorization; Done: [id number] SocHx: Never a smoker Tobacco Use Screening; Status:Complete; Done: [id number] Tobacco Use Screening; Status:Complete; Done: [id number] Tobacco Use Screening; Status:Complete; Done: [id number] Patient Instructions By signing my name below, [...] negative for complaint. Vitals Vital Signs Recorded: [id number] 09:05AMRecorded: [id number] 09:04AM Jkygmvtc250, LUE, Vtirgla954, RUE, Sitting Vmrkveelg60, LUE, Xalapoq38, RUE, Sitting Heart Rate66, Apical Height5 ft 10 in Wqdsgk411 lb BMI Zpconpepbi23.14 kg/m2 BSA Calculated2.16 Tobacco Useb) No PHQ-2 [...] Screening.on 022 Adult depression screening assessment No [facility] Work Phone: Fall risk assessment c) Not medically indicated [facility] Work Phone: Tobacco use status [facility]PH[facility] b) No [facility] Work Phone: POTASSIUMon 11-16-2021 Potassium [Moles/Vol] 3.8 mmol/L Normal 3.5-5.1 [facility] Comment on above: Performed By: #### K #### [facility] [address] [place] [address] Dr. Jossue Centeno Lab - Other Lab Resultson Lab - Other Lab Results [id number] .00OTGTIFF Normal [facility] POTASSIUMon 11-12-2021 Potassium [Moles/Vol] 3.7 mmol/L Normal 3.5-5.1 [facility] Comment on above: Performed By: #### K #### [facility] [address] [place] [address] Dr. Jossue Centeno HEMOGRAM AND PLATELon 2021 Hematocrit (Bld) [Volume fraction] 45.0 % Normal 42.0-54.0 [facility] Comment on above: Performed By: #### H H #### [facility] [address] [place] [address] Dr. Jossue Centeno Hemoglobin (Bld) [Mass/Vol] 15.1 g/dL Normal 14.0-18.0 [facility] Comment on above: Performed By: #### H H #### [facility] [address] [place] [address] Dr. Jossue Centeno MCH (RBC) [Entitic mass] 27.9 pg Normal 25.9-34.0 [facility] Comment on above: Performed By: #### H H #### [facility] [address] [place] [address] Dr. Jossue Centeno MCHC (RBC) [Mass/Vol] 33.6 g/dL Normal 29.9-35.2 [facility] Comment on above: Performed By: #### H H #### [facility] [address] [place] [address] Dr. Jossue Centeno MCV (RBC) [Entitic vol] 83.2 fL Normal 80.0-94.0 [facility] Comment on above: Performed By: #### H H #### [facility] [address] [place] [address] Dr. Jossue Centeno PLT 299 103/ul Normal 150-450 [facility] Comment on above: Performed By: #### H H #### [facility] [address] [place] [address] Dr. Jossue Centeno RBC 5.41 106/ul Normal 4.70-6.10 [facility] Comment on above: Performed By: #### H H #### [facility] [address] [place] [address] Dr. Jossue Centeno WBC 10.2 103/ul Normal 4.0-11.0 [facility] Comment on above: Performed By: #### H H #### [facility] [address] [place] [address] Dr. Jossue Centeno MAGNESIUMon 11-11-2021 Magnesium [Mass/Vol] 1.3 mg/dL Critically low 1.8-2.4 [facility] Comment on above: Performed By: #### K #### [facility] [address] [place] [address] Dr. Jossue Centeno Outside Recordson 11-11-2021 Outside Records [id number] .00OTGTIFF Normal [facility] RENAL FUNCTION PANELon 11-11 Albumin [Mass/Vol] 4.1 g/dL Normal 3.4-5.0 [facility] Comment on above: Performed By: #### K #### [facility] [address] [place] [address] Dr. Jossue Centeno Calcium [Mass/Vol] 9.4 mg/dL Normal 8.5-10.1 [facility] Comment on above: Performed By: #### K #### [facility] [address] [place] [address] Dr. Jossue Centeno Chloride [Moles/Vol] 102 mmol/L Normal 98-107 [facility] Comment on above: Performed By: #### K #### [facility] [address] [place] [address] Dr. Jossue Centeno CO2 [Moles/Vol] 30.7 mmol/L Normal 21.0-32.0 [facility] Comment on above: Performed By: #### K #### [facility] [address] [place] [address] Dr. Jossue Centeno Creatinine [Mass/Vol] 0.83 mg/dL Normal 0.70-1.30 [facility] Comment on above: Performed By: #### K #### [facility] [address] [place] [address] Dr. Jossue Centeno EGFR-AF GHANAIAN >60 Normal >=[address] [facility] Comment on above: Performed By: #### K #### [facility] [address] [place] [address] Dr. Jossue Centeno EGFR-NON AF GHANAIAN >60 Normal >=60 [facility] Comment on above: Performed By: #### K #### [facility] [address] [place] [address] Dr. Jossue Centeno Glucose [Mass/Vol] 94 mg/dL Normal 74-106 [facility] Comment on above: Performed By: #### K #### [facility] [address] [place] [address] Dr. Jossue Centeno Phosphate [Mass/Vol] 2.4 mg/dL Critically low 2.6-4.7 [facility] Comment on above: Performed By: #### K #### [facility] [address] [address] [address] Jossue Centeno Potassium [Moles/Vol] 5.7 mmol/L Critically high 3.5-5.1 [facility] Comment on above: Performed By: #### K #### [facility] [address] [place] [address] Dr. Jossue Centeno Sodium [Moles/Vol] 139 mmol/L Normal 136-145 [facility] Comment on above: Performed By: #### K #### [facility] [address] [place] [address] Dr. Jossue Centeno Urea nitrogen [Mass/Vol] 13.0 mg/dL Normal 7.0-18.0 [facility] Comment on above: Performed By: #### K #### [facility] [address] [place] [address] Dr. Jossue Centeno CARDIAC ESTUARDO 3-6on 2 CK [Catalytic activity/Vol] 536 U/L Critically high 39-308 [facility] Comment on above: Performed By: #### K #### [facility] [address] [place] [address] Dr. Jossue Centeno CK.MB [Mass/Vol] 3.09 ng/mL Normal <=3.60 [facility] Comment on above: Performed By: #### K #### [facility] [address] [place] [address] Dr. Jossue Centeno HSTROP 179.4 pg/mL Critically high 4.0-76.1 [facility] Comment on above: Result Comment: CUT- OFF POINTS HAVE BEEN ESTABLISHED BASED ON THE FOURTH UNIVERSAL DEFINITIONS OF MYOCARDIAL INFARCTION. THE UPPER REFERENCE LIMIT (URL) OF TROPONIN, DEFINED THE 99TH PERCENTILE OF cTnI DISTRIBUTION IN A REFERENCE POPULATION, HAS BEEN CONFIRMED THE DECISION THRESHOLD FOR [place] DIAGNOSIS. TEST REPEATED. CRITICAL VALUE VERIFIED Performed By: #### K #### [facility] [address] [place] [address] Dr. Jossue Centeno CARDIAC ESTUARDO ADMITon 022 CK [Catalytic activity/Vol] 607 U/L Critically high 39-308 [facility] Comment on above: Performed By: #### B MARY QUEEN #### [facility] [address] [place] [address] Dr. Jossue Centeno CK.MB [Mass/Vol] 3.82 ng/mL Critically high <=3.60 [facility] Comment on above: Result Comment: TEST REPEATED. CRITICAL VALUE VERIFIED Performed By: #### B MARY QUEEN #### [facility] [address] [place] [address] Dr. Jossue Centeno HSTROP 187.8 pg/mL Critically high 4.0-76.1 [facility] Comment on above: Result Comment: CUT- OFF POINTS HAVE BEEN ESTABLISHED BASED ON THE FOURTH UNIVERSAL DEFINITIONS OF MYOCARDIAL INFARCTION. THE UPPER REFERENCE LIMIT (URL) OF TROPONIN, DEFINED THE 99TH PERCENTILE OF cTnI DISTRIBUTION IN A REFERENCE POPULATION, HAS BEEN CONFIRMED THE DECISION THRESHOLD FOR [place] DIAGNOSIS. TEST REPEATED. CRITICAL VALUE VERIFIED Performed By: #### B MARY QUEEN #### [facility] [address] [place] [address] Dr. Jossue Centeno MELVI 100 ng/mL Critically high 16-96 [facility] Comment on above: Performed By: #### B MARY QUEEN #### [facility] [address] [place] [address] Dr. Jossue Centeno CBC AUTO DIFFon 11-08-2021 BASO # 0.1 103/ul Normal 0.0-0.1 [facility] Comment on above: Performed By: #### K #### [facility] [address] [place] [address] Dr. Jossue Centeno Basophils/100 WBC (Bld) 0.5 % Normal 0.2-2.0 [facility] Comment on above: Performed By: #### K #### [facility] [address] [place] [address] Dr. Jossue Centeno EO # 0.2 103/ul Normal 0.0-0.7 [facility] Comment on above: Performed By: #### K #### [facility] [address] [place] [address] Dr. Jossue Centeno Eosinophils/100 WBC (Bld) 1.3 % Normal 0.9-7.0 [facility] Comment on above: Performed By: #### K #### [facility] [address] [place] [address] Dr. Jossue Centeno Erythrocyte distribution width (RBC) [Ratio] 12.6 % Normal 11.0-15.0 [facility] Comment on above: Performed By: #### K #### [facility] [address] [place] [address] Dr. Jossue Centeno Hematocrit (Bld) [Volume fraction] 41.4 % Critically low 42.0-54.0 [facility] Comment on above: Performed By: #### K #### [facility] [address] [place] [address] Dr. Jossue Centeno Hemoglobin (Bld) [Mass/Vol] 14.5 g/dL Normal 14.0-18.0 [facility] Comment on above: Performed By: #### K #### [facility] [address] [place] [address] Dr. Jossue Centeno IG # 0.05 10e3/ul Critically high 0.00-0.03 [facility] Comment on above: Performed By: #### K #### [facility] [address] [place] [address] Dr. Jossue Centeno IG % 0.4 % Normal 0.0-0.5 [facility] Comment on above: Performed By: #### K #### [facility] [address] [place] [address] Dr. Jossue Centeno LYMPH # 1.6 103/ul Normal 1.2-3.8 [facility] Comment on above: Performed By: #### K #### [facility] [address] [place] [address] Dr. Jossue Centeno Lymphocytes/100 WBC (Bld) 12.4 % Critically low 20.5-60.0 [facility] Comment on above: Performed By: #### K #### [facility] [address] [place] [address] Dr. Jossue Centeno MANUAL DIFF REQ NO Normal [facility] Comment on above: Performed By: #### K #### [facility] [address] [address] [address] Jossue Centeno MCH (RBC) [Entitic mass] 28.3 pg Normal 25.9-34.0 [facility] Comment on above: Performed By: #### K #### [facility] [address] [place] [address] Dr. Jossue Centeno MCHC (RBC) [Mass/Vol] 35.0 g/dL Normal 29.9-35.2 [facility] Comment on above: Performed By: #### K #### [facility] [address] [place] [address] Dr. Jossue Centeno MCV (RBC) [Entitic vol] 80.7 fL Normal 80.0-94.0 [facility] Comment on above: Performed By: #### K #### [facility] [address] [place] [address] Dr. Jossue Centeno MONO # 0.9 103/ul Critically high 0.3-0.8 [facility] Comment on above: Performed By: #### K #### [facility] [address] [place] [address] Dr. Jossue Centeno Monocytes/100 WBC (Bld) 6.9 % Normal 1.7-12.0 [facility] Comment on above: Performed By: #### K #### [facility] [address] [place] [address] Dr. Jossue Centeno NEUT # 10.3 103/ul Critically high 1.4-6.5 [facility] Comment on above: Performed By: #### K #### [facility] [address] [place] [address] Dr. Jossue Centeno Neutrophils/100 WBC (Bld) 78.5 % Critically high 43.0-75.0 [facility] Comment on above: Performed By: #### K #### [facility] [address] [place] [address] Dr. Jossue Centeno Platelet mean volume (Bld) [Entitic vol] 9.5 fL Normal 9.5-13.5 [facility] Comment on above: Performed By: #### K #### [facility] [address] [address] [address] Jossue Centeno PLT 306 103/ul Normal 150-450 [facility] Comment on above: Performed By: #### K #### [facility] [address] [address] [address] Jossue Centeno RBC 5.13 106/ul Normal 4.70-6.10 [facility] Comment on above: Performed By: #### K #### [facility] [address] [place] [address] Dr. Jossue Centeno WBC 13.1 103/ul Critically high 4.0-11.0 [facility] Comment on above: Performed By: #### K #### [facility] [address] [place] [address] Dr. Jossue Centeno LIVER PROFILEon 11-08-2021 Albumin [Mass/Vol] 3.8 g/dL Normal 3.4-5.0 [facility] Comment on above: Performed By: #### L IVER #### [facility] [address] [place] [address] Dr. Jossue Centeno Albumin/Globulin [Mass ratio] 1.1 {ratio} Normal [facility] Comment on above: Performed By: #### L IVER #### [facility] [address] [place] [address] Dr. Jossue Centeno ALP [Catalytic activity/Vol] 91 U/L Normal 46-116 [facility] Comment on above: Performed By: #### L IVER #### [facility] [address] [place] [address] Dr. Jossue Centeno ALT [Catalytic activity/Vol] 69 U/L Critically high 16-63 [facility] Comment on above: Performed By: #### L IVER #### [facility] [address] [place] [address] Dr. Jossue Centeno AST [Catalytic activity/Vol] 40 U/L Critically high 15-37 [facility] Comment on above: Performed By: #### L IVER #### [facility] [address] [place] [address] Dr. Jossue Centeno BILI, CONJUGATED 0.1 mg/dL Normal 0.0-0.2 [facility] Comment on above: Performed By: #### L IVER #### [facility] [address] [address] [address] Jossue Centeno Bilirubin [Mass/Vol] 0.6 mg/dL Normal 0.2-1.0 [facility] Comment on above: Performed By: #### L IVER #### [facility] [address] [address] [address] Jossue Centeno Globulin (S) [Mass/Vol] 3.4 g/dL Normal [facility] Comment on above: Performed By: #### L IVER #### [facility] [address] [place] [address] Dr. Jossue Centeno Protein [Mass/Vol] 7.2 g/dL Normal 6.4-8.2 [facility] Comment on above: Performed By: #### L IVER #### [facility] [address] [place] [address] Dr. Jossue Centeno PROF CHEM 8 (BAS METB)on Anion gap [Moles/Vol] 10.3 mmol/L Normal [facility] Comment on above: Performed By: #### B MARY QUEEN #### [facility] [address] [place] [address] Dr. Jossue Centeno Calcium [Mass/Vol] 8.9 mg/dL Normal 8.5-10.1 [facility] Comment on above: Performed By: #### B MARY QUEEN #### [facility] [address] [place] [address] Dr. Jossue Centeno Chloride [Moles/Vol] 97 mmol/L Critically low 98-107 [facility] Comment on above: Performed By: #### B BERNICE, JIDM #### [facility] [address] [place] [address] Dr. Jossue Centeno CO2 [Moles/Vol] 34.0 mmol/L Critically high 21.0-32.0 [facility] Comment on above: Performed By: #### B BERNICE, CMADM #### [facility] [address] [address] [address] Jossue Centeno Creatinine [Mass/Vol] 0.89 mg/dL Normal 0.70-1.30 [facility] Comment on above: Performed By: #### B MP, CMADM #### [facility] [address] [address] [address] Jossue Centeno EGFR-AF GHANAIAN >60 Normal >=[address] [facility] Comment on above: Performed By: #### B MP, CMADM #### [facility] [address] [address] [address] Jossue Centeno EGFR-NON AF GHANAIAN >60 Normal >=60 [facility] Comment on above: Performed By: #### B BERNICE, CMADM #### [facility] [address] [address] [address] Jossue Centeno Glucose [Mass/Vol] 98 mg/dL Normal 74-106 [facility] Comment on above: Performed By: #### B BERNICE, CMADM #### [facility] [address] [address] [address] Jossue Centeno Potassium [Moles/Vol] 2.4 mmol/L Critically low 3.5-5.1 [facility] Comment on above: Result Comment: TEST REPEATED. CRITICAL VALUE VERIFIED Performed By: #### B BERNICE, CMADM #### [facility] [address] [address] [address] Jossue Centeno Sodium [Moles/Vol] 139 mmol/L Normal 136-145 [facility] Comment on above: Performed By: #### B BERNICE, CMADM #### [facility] [address] [address] [address] Jossue Centeno Urea nitrogen [Mass/Vol] 14.0 mg/dL Normal 7.0-18.0 [facility] Comment on above: Performed By: #### B BERNICE, CMADM #### [facility] [address] [address] [address] Jossue Centeno Urea nitrogen/Creatinine [Mass ratio] 15.7 mg/mg Normal [facility] Comment on above: Performed By: #### B MP, CMA #### [facility] [address] [place] [address] Dr. Jossue Centeno XR CHEST 2 Von [...] ONIEL WILSON Date: 2021-11-08 20:44 Normal [facility] Coding Summaryon 06-25-2021 Coding Summary HTMLBase 64 HeysfhglUWs0jEj+PGhlY WQ+YU1KGCQxR11rpDYlhS 2CE1vEYQ9WPFSNTDRNOD9 MOW0iiRI5BSjsO6FwetXu BdjvrCMaHB76OBg0HFG3o CmuQXmjoX6ddRYkQ9c9Km DzBF31lJ37YWulJVUqGvM 3LjZpbjsgbWFy G6zxTtNykOMxNeo+PHRhY mxlIHdpZHRoPScxMDAlJy JgpJtmZF2nWu0hKHLfFVM vbGxhcHNlOiBj p1kkQXCsGEunAY3psMuxH 6DbsTF5PVKsj3n1Kq29lL I+NZXnVHN7eKrsVYwww39 0ZvGvl3ovZZM4 pOJiYUkyFYT8S60ak3N5R YOsCVVmRWR9hLW8tZ9ebN qcwkmbI1ChxWFiGrR4BSH 7hDYsoP0vkLdu dqdgjH3jHmi+A47DXA2TK QJGEH4QIwy7C6LfDifaiE I+NW68OXKmIW45pBBvhFS ls5uqlNc5PqQw BPCtDSM2cEdrSXmje5QrH ADaT86rxFEtc7U5JQQefW riyPDaOeHnsRZ3zV6zBYx sieyqn0qnbpao Wzdkq7xsak04gT27Y68sX KqsRMXcFEV2MYNlBFOirO cmhs9wiN6xNl9+MYisi0c np4bphHi3BdHv PPLienGpiWhuRGT6s9NxT b95O9SwwNsdn5RdLbp4kt 32fXDhv4P6lDU3QJnuHBP zeH9hRSnyQkG0 BIOmDiOzmU76wMIeGAfqA l7wlWlqfOduKX9cAYEeod diOKNsrT3lTUCmqKZxuHm mCZ5oGEUogswi i254DvKtDTN9BBJaiUMjU 1DisH3mYvXcUKDbHEDsA6 VigETnCEqhX990FXahDfM 7VAMypbVeE1Ro DOSqmAsvErW3n4G7Xs2Pp 1UnrqsmIYJ0XYabOIUbJo Q2RyCyMhP4C1YhUfp2ZFK wzAdlYI6cA7Ie VVYkeujmxnrsnUS4EGQlY OQdbC73pIRfKNhzDk6jf1 S1a617SEMnVLSmvY63Nr2 udDogMTBwdCBU bD0clksld6vlhbaeUsYzO KWqNEl7HDn2HUElwXazUv FyOFD1JkI7RXR0dMBtdJ0 xiBihhubhiP4r Oyc+W78hyO7zAGW3ZUD6r qrmBEUlgqGfVF50OQ80O3 RyPjwvdGFibGU+PGRpdiB hkAasLI8bIgRx o5knd0BbRIxkU8CoJRLrG WtfZbm4OVWoUKD0dOZ7bU 1ySJIvJWqkk8P7lUS7M9E vanYnzt9wf0kr KKWmXCekW86hyRMlk8E6S CLsdWI8UFRbrJqwXqJxxO 93Oyc+CDBbyEedf7CqTmf of4kuc7vmhCt4 QmHrHEMazfZouXzvOKF5o 0LbEc82T13mJPrzHZQnKQ PtFBVvJLSsdNfhbc8zkI0 wIi8+PGNvbCB3 iJA0qC4eERFtDwQ7FQeyZ 266LiUznOBmUgxvb5nqk8 ihyIu5RnJwOMDeuqHkkHl bZBE3z7JrAa66 G46iLAprMXQkNBKbQLRhT GItsWxxop1grB8mZg0+PC 8kp1xpzb33gS52kPK+PHR bLLM8pDdoGUtv ARIgrO4rULrjVkP1AAKyM yWgfF06lWFuXBdbPr6qgQ dxqRgkDZ8hQHJialumm31 8ZrJin2gkVZEo fKLwBIyuJWG7D01lg7S7Z RMmMJYiMPZ5iAY5bN4jqT lnbjogbGVmdDsgdmVydGl jYRhtQVnzB553 IHRvcDsnPlBhdGllbnQgT aBzSJx0E7WnFvi9UWCfaE blWL9ynSMlHGsbNf9hwBo ldRsdUL1vNKSo duqwv923OwBva1soOQZal XNnWWnnBXA1G96nr0L4KU UjDBMlPLD6gWQ0hA5vvDy nbjogbGVmdDsg ygSayLtmKJmnNJfgZ447H HRvcDsnPkJpcnRoIERhdG U4NG32AA73wWPqq4Q4yMO 3M6XuHSHtrhxo hbcjtDA2YUEpJDYrgH49Q v6rwNtiAk4yDAGdWJI2UZ PxnSZfM1GxfU1aUcLnGUU cQMXmS1YovARl CPsxX864NSzgUlF7XGFsk rEjU4NbBXSxlGyqObT1p1 F0Qb4TY7Q1QE11PI74cAV yc5Z6pHP9Y0Xh CPFujatwytcxqLZ5GAJkV HCqvE20Wv4nxLuqEw9nBE UxTPC7KRScbRFpO5FxtC0 yOiAjMDAwMDAw W9KcgREgAUqlJ707JOfaN iO8UXSonjVxN5DkMZTnpF znHwD4z0Q9Jl4IJVk5VY8 3AE06xDTxg7R3 nQW8E5WbGCGhanulevkkm MW9SJLzGPQkoK78Kl5boG njOc7bEMJeNVV1FXCatZE eU5LfxE6rTnSr AXDzVUFxE6ExpEQqZHlgX 249UVwgSoC7OMSegmPoL6 UdIWYhfHynPcX7a4N6Su1 LMVNhXU70RJJ4 qAI6NI94OX58L9ZlCvpys GFibGU+PHRhYmxlIHdpZH RoPScxMDAlJyBzdHlsZT0 vIj3dIJVhZVPj uEgssMUbIaGiq0mnTMNaM PeiAQ6epIhaH1BrsQJ3BE Esj3j0Ym36R88cZ6HckSX +OFBzmJM6bMA9 eU3gAcNnJjU8QTktQ715F xUxuXMwZcmvz4vjg2pklJ b4JsR4WMGnupLgdGcjFMV 9h7HyJg72F46i IHdpZHRoPSIxNSUiIHZhb Kyjaf2ynI5yAv3+PGNvbC V5jCJ2eU7cHtCdYuM9YLk wG258NvDsbWWf Rtwox2afz6hssWn1MxPrV AMeqaOnmStkUUA5l2CkXi 87T5XnpRnfl9YgWiy7zc0 2cTLvl8X4zZZ2 J0ZbIEDtumoxgGPpcOorH R0kCEGuvszgROMcfS6lUE AhP4a8MfHnHyV1WNwwO0J txtW0LDBieNKx QJfbNOR9Z76kd8B2NMBjE CTbNGM8lWY2fA2qePxvmm ogbGVmdDsgdmVydGljYWw cCYfnK975PYJg iPwgZKXvdC8jCGDrgXXlu TdtOR2dRQFxsdggDrFJD9 CDCDETPmkRNMDILQD9S8V wFhl9BTSepLgl JA6tfAJnDOubXq4gdXqea KdrGX9dIIGrdxhwENDudO 8lBXUfiWSmcDeuZA2pIHB zxxffv884FfZb HWJ2GAGomDJdW9LdiH1bB mMoDRKvZWLrU7GzkGWpHX vhL954BJvzTfS6OGPcwjO iR8YnEFIrqBux YjT0g5W4Ax4zGj5uLE9eG Hp2LB73QQ17hYJly0A7xY I2A1YgWFHlngykcafkxIS 1NTXgZMYhsD06 vYWnKTisOq2un5Z6n755E SYaWZAccO93Kc5jeWzvEQ BsdQKOqU2fhezru0rzhhh gIzAwMDAwMDt0 GNp5ABJqpLlgIeQaRFW0N pG8IHW1jRUelF0nhOgcsg uymG1uRfl+MjUgWWVhcnM 9R6RoFgu8ODTm xGwpWL3kpHOnOPvhBg7jq LkwxFfaTO0vWPWyudsuOF LbmZ5xDTYowWSzlVubBE0 gTKCipbjwe383 DmFlRFJ1ZVRglFLtN8Gwc A6uFoQkCGIiMPBpZ3HxqB VbBSoeV475ZScdFeQ2AWB onoKzN4IzUCMj cVqgGoF1c1D9Cu6VLPiCN Z48ME80xMGit8J0jDL2B4 ZwXTPqgrjcatwksQK4WWT qYRPbxX65kUDx SNtiXm7za7J8u171JQEoR CAxjY15In4suQkvXHRpbU HCiW4ygptac4mwplauIuV kPQRfJCl0JKn5 TWBedKibSvGmMFX0HtW7K TQ0qFQniA2jzJjlfzkreS 9wOyc+B9A0P0JkYvftfFR +TH40HZLhSY59 pCKqgNMzz3iarIq3CxVfP GKbUFB9oQkaABkgb1MqPV MtF96ziITkx3F9MONwvHl hcHNlOyBlbXB0 aZ1eGYzehtyfx2pqozjrF xowm9srka49tK18Q78qLY dpZHRoPSIzMCUiIHZhbGl hlu8wwB8xIu5+ VCFqjZJ8mHK7uX8vQcCoN hS9YHojZ594BkMahEKsDm dev6tkm2kihAb5XyQpBGQ gdmFsaWduPSJ0 c4PfCc96E57sVHhbXVDrD GNdIQDbDFYipUclbm0kvM 9wIi8+AE1tf7petk68cQ0 8dHI+PHRkIHN0 iTfuAIzfORIoiE6iTAesI lM3MZSzQmWnuY26dGYgGG heKj1skTyekQxaMM1cCVC xgmjdw017YeZd t0ozHGPuiSObIXcrETF2N 93yp9U8VUGtGIUoVWZ1gX I9gC2nyCtxaxqldBUxtWs gdmVydGljYWwt BScnN543FVMslJcbJcThj PKqY7xifaQVGG8eEocalH Q+QYEyOVU8cJiwKDwbMPC ehU2wQJToG3w0 KgHaKsW6SCyuH6UcckS2C YIlvQJhSJItoMROkY8ugx rxn6girzveBkYoONQdWAh 3FCj1SIRbfSmv LcNjWWO5XrV4WQC9nJWwl O1suHaubtotxI7xRqs+Rk lOOjwvdGQ+KRYbZTU3vEc sCUskRTQzwL6b UIUtK6b5IrIdXmU3EIyaF 1LjdnW8FERxkMYhSBPawV AHbR0zoqssm5gkuokaFkL qGYIaJRn7FZc4 NJXezHlfCvWqDZZ6TiK9T HV1oQRwkM5pkHkjxsxjbN 9wOyc+TVJOOjwvdGQ+PHR eFZR7lBtlHMnl REFpbV0mDBGyS5c8OvZwA nD8IAcdS6KudlL2MXRqmX NiOSEekQGRtM5fsrjuq2o vcjogIzAwMDAw OXh5FNg3PUPnyXrlTxWzW XU3OcL2JUJ2gETnmK5lnE xjbycesG9kBtc+KVO2QDD 6CP41UC84S6Ja PjwvdGFibGU+PHRhYmxlI HdpZHRoPScxMDAlJyBzdH azWF2iLo8aAZEbBSPzvWf gmWJtCtRrd2mb YXB (more content not included)... [facility] XR Ankle Complete Righton XR Ankle [...] 06/25/21 1:50 pm Technologist: VINCENT MOTTA Normal [facility] XR Foot 2 Views Righton 06-09 [...] 06/25/21 1:50 pm Technologist: VINCENT MOTTA [facility] Consent Formson 04-03-2021 Consent Forms [id number] 1 [email or web address] [facility] Coding Summaryon 03-27-2021 Coding Summary HTMLBase 64 NxduxbhaOWr5lSe+PGhlY WQ+LK5YWYLxD11cePBdjN 0DF9sFPU3CYPLXRHVKKN0 AJU1meCH2TKbnJ1ZopoKx WhdrwWZyVC74DKw5IGS1j VroXHljdX8qoPXmA2o5Kr ZnSY63eK56VKqaEUPuMtV 3LjZpbjsgbWFy X7acZcMaxBUvXyz+PHRhY mxlIHdpZHRoPScxMDAlJy IsjPeoIM4nPs0gREMdMYX vbGxhcHNlOiBj c6vjHTFpPMzeOH9ocAblQ 5JtpCQ9BTDmi8u3Xv76aA I+SMXhTCH0aEfyYYbgn14 2CmQtj8irENI8 aCPwLPrmWCP7Z20gl2A7S KIcWKKcSJA8aDX7wT1zcG dyxvqpE6BjxDWjRiS3UUX 3nHKohO7ahDke laxcqN7zLnm+S11JEP9DR SYBOB3DLvf7N7TsUkxgrU I+OE23XGQgBS50iEKcdUP vy7lkuDs5RuVe WAQoOLE6kIarYCpmz7YrR YFiW14qdSWfz0D3CKVhlT yixZArPmYuhCV2yD8eDMd tiaxlx7ncorvb Wsobd1jrvn96dF99D88aM QojNGWiBBT5DRFfUMDktS spbt7wzA3xTn4+HTieh7k gi4qleRn8XwKy QAHilfLjdBrjXRD1c0CdZ j76V2MtpBlnm8YbDrq5nr 23wLCjt9N6iYZ4NGdbPWF pnD1qEPtaMrO3 HDXvApTnzH43zIUxUTioP k1dxHggiUauEG3yDFTaxb kpBAHvpA7sMOHmsEQwjKs oFY9lJPDaztoy h178BeToVUS9VYEsvCQlV 2IhuZ0wSgMpBYVdKPHgP1 UwtCEuLZycG673YEydFnP 1IKNrtpPpB3Lt BVMcbNxlWiA2n8A0Pd8Rv 4SykeriTJL7OXxgENDgEr S1ChUbUmL1T7KmWuh9SWA awOicMY0aM5Ln FCVonejirbeknFD9AEGmM TPbaW81zGYtSHzeZv5ai6 Q1j191MLAhRTBrgD15Ox0 udDogMTBwdCBU wI3yiirfg7stnyhjZpEyR JZgOBh8FTx1OQFgyQbeIw NxDFM3ZjY9QHI0nYSreD7 dmCvjxczjhV0v Oyc+O62zcH9tKQH3VTA3e ellUTVctjAqYV10KF63E9 RyPjwvdGFibGU+PGRpdiB kzCowJN0uLcIm i1bsr6SeXOpsP2OfAIBnX JjlVkz2DYOlLPM3zDD0iF 6aGIAaIIazx8D1gUR0U7I zfzHsga9em1bg BDLzXHooW00meNRsv7J7L FLkqTL7JLAoaShqHgFggM 93Oyc+HQQxqZmgx5ThNjc fr3irn3nirEu0 DsPzHMTubhQphOtuXDZ5y 9IeYi76U70wWGbcDILaAS AbPDRmXAWhmWbwqj0rgJ8 wIi8+PGNvbCB3 jAG9gQ7uREZpGhA7ISvzC 237DuHuaZCuOlxlf0uxp4 lppBx8RaBaNPAhsgYxnZd lFFX6h7KeUs89 A37fJNatEVTiNIVzEDJpU IKafLqamq3koH5bOo2+PC 6op7pzsc04sS88sJC+PHR sZXB7cMdxFHhr MNZdoM8iISneYtL9ZVDsG tPfpT80tPGuDSmwBx6epF ynsPvqAJ9qZMQtzlafo80 1WmXpy8saXNBi nTCsOYzsPXZ8T20up1A3U EJhGHDoHZG9mZI7wD9jmC lnbjogbGVmdDsgdmVydGl wPGueEHtgD295 IHRvcDsnPlBhdGllbnQgT fFmNRj6H3WeVto2PUDdrH vaRO2upHYwTLsvDg9xqNp ydXmeYX6jNDKc svhmk031MqToz3zsCWHhl IDsIVgmGMP1L53ab0P6DN EpEPHiWUR9rMT7hY8pqUa nbjogbGVmdDsg pbDklCshGKsoBDmcH008T HRvcDsnPkJpcnRoIERhdG P5UJ50ZF02vZRgq1X3yIJ 1R1EbDCUtikfa inbjfLS6WKCrAXFhoR15T m5vxVhfDp8kTEMyMYI4OR EdrWOaB9IvhI4sQfXrBVG xVSIjP4ZpbSOp MMhkW432THxkSpQ0VEHrp mWgL9FqLFPkrIqpGwA1h4 Q8Gi1LG2Q0MK13SW86cPO ay8I5tWN5D4Wq PXZmbxcvselvvQD8JOUiA WGvcW70Cp5lmSpsBm9zDV FtATG0LOLczICjM3ViaH6 yOiAjMDAwMDAw P2CrlVAcOSslO779KWmoV vG4EBMjvnDbS5NeTDIzkT kzNsY6e5M2Ri3CEIk4KY3 4OV19aDYzg8L1 eVL4O0LgVIHfwcobhohqz EE2FNNjREFoyP45Ym7oyW rgGx3wSOOgOSL2OHUphNM sP8XudD6bNiBo XRDrDFRtM3IgrKDwOYldT 823OJpgTuL9SPIfhcBaG4 IeERPjcDnbGyQ5e3U4Lj4 PDLFnMM05AXC8 gUN3TT71BM61W9NxNlfsx GFibGU+PHRhYmxlIHdpZH RoPScxMDAlJyBzdHlsZT0 cTg2vJCFyOCJh eBzbaMJcYvZgd4uqVNJnH SmkWD9gfXhaN6IwiBT9OY Hfz9c9Gz90Y05jZ0JfbHL +JZYxmVY1oPH6 qQ5wQmZeZmB4GVzeL579N wSkxZInOkolv0vay1jwwT d0DkH6NLUfwmWtbPvpCPO 7c5ZwRw49W63h IHdpZHRoPSIxNSUiIHZhb Vjdnf6vmB3wUk8+PGNvbC V7kER3gN2qEgWoTvR7LOx kT752EbUxkISi Xywmf8tha8luqDe9BmDjR PMlebOmkWswTIM2v4OeDw 98R6NsyEbif9AvMmz1jf9 7cTZnv8O0gIP1 V5SeGQBygqwbwSBwoAaqH J5eUMQqacodKMHwcK6dET NkE1m7FmYoQwQ5RStaL3B axpT1ZNAffGTj GJihSDQ0V80or0V9RKWnK ENbJTZ8fVM6xG5gzZikcd ogbGVmdDsgdmVydGljYWw xFQvkH869OQEy vOoeCLLzyD5tXNKggYAdv MvmET4oDENcmwfdRgYJM5 WULZUJEoiPKIJNCGA1W1W jQpq0WHZbmXzu ZQ5wkCZcAZzhUr6bdUozd TutTQ7jNUAqstgsHKJlvF 1bBKRjbBAahFejIX8xTLX fjlkxs844QnEl SLK9YCTvwVYzH8TjiJ8zN xNsCULgWUPtF9YfcEHdQB daU867RGkfEbE9KZCcqyD gN0WfXWSjgNjn EdC6r8Z9Sa0aRp3mWC1fO Bd6DB68TR65hGKsx2Y1pK I5V6CqKPWwajdxefwnbJB 1PVIaVWZfkG62 dULeFIqsIc3ks2L2x907V YIfQKOjaR24Zs2bsLxzSL HpvCXIoD8iuuakf7liscn gIzAwMDAwMDt0 JQr9SUZyxDnwXoBoMTJ1P eD6IWX3wYRniW5bzJwqdj lioB5sXon+MjUgWWVhcnM 5B2CuMbe3VPNq iRbhIT0byWNtANfdGx3tp XxnxWxaPP9dDTQtdwamMB XuhI8hMKEksJKyvGzgIS0 bUSBbshqcm084 KwCkZSG7JUXukZKvN5Gsw N2aGeRdIYFdATUmM6WrgA SnQBseD671RBlfLnV6PGY mchBwE3SxJWXw nEnjLtO6j0U4Ko4XMIsRR Z25UH31aBKol4O0aOM8E6 XlSGJiiiwsktpqoDU3MDL sRBGtpV33aGLs QBcaRw1nc3Q4u224UMSyF PCmmO92Fk4dnFmeJVRkbZ NJeK6fsxhow0kkfqnqXlO xBZKuWNx0GNq5 TBNrhTrtQwIvQRC9LxE6C ND5iTZlxZ8zhGhzoyxxuL 9wOyc+T3T2X2ZsHlaxwBE +XB61YHGbRH41 oSOogUMyl5itsUq1QwHoT RNoVEH9mVdjTZxsj1PcKW JdK24hyEHdm4E5VLDulPc hcHNlOyBlbXB0 wV8oTHjnaaccg3qbdqquO vywb1qpwx62fH66D69fLG dpZHRoPSIzMCUiIHZhbGl xja8wjH5gFu3+ ZTCjdVE2cHG0mE0sDbPbJ xW8LBfgT964HzJacBAkDe oue1xpz9jcwZj6WvTtUHG gdmFsaWduPSJ0 j1YpRj99H42yUEraAYAgE EXjZWCuKNCbyFhdre2diI 9wIi8+LN1kl5ghic10pI9 8dHI+PHRkIHN0 rHuyDRdoZEZdsF9tUKwtL qG5HVJzXiDrtK07xITyWB xuEk5qqXznnRyyIG7hWPI cptchk270KxIg v2vqLWDhiHKqWVniYCJ3F 45sb4N0VFYiKTMiBBU3qI E3lX5vkQrreuxhpJIruNv gdmVydGljYWwt XLzlF365SNQphWlaNiZmu QXdA9apriTEQX4gHdpltG Q+JQIeGVN8iVujFBarHHL rqO6xSDMnN8m2 XiUdKuI7KOypE9RxreM1E FOuoVThKFBryOPOeD0cgu sje5xhxdzxCgLtPCGbLVa 9JZr1RTFieHjh YbYpGKF5PjW8BME3dLDer X4ctEdltxydxB3fKrs+Rk lOOjwvdGQ+XMLfRKP0aOx nNBwbSBGirK7c TJOuE6p0JhMpCwP8LEeiM 8TakcJ6SJSecBCoGPYbyB GTfZ5eatacs4ddvwzmTzT nZDXdEDl3IDj4 LYEgiMzoAuPhSNL6TtT4M AD5vFLqsO5lpYuaamfemK 9wOyc+TVJOOjwvdGQ+PHR zSYT7kMuiKFvh ETEglD6gMTLpZ3z6OpTrE sX9FWhvV2VvpsA7UOYiuJ NjQRLvhBGNdR3yvqczr3u vcjogIzAwMDAw QUh5LRq0OQDaeLskYePxB RY6HaM1BUV0fLFwcN0fxO hxqcgobW7xVrp+HPB0ANV 4XG65PJ19B1Ah PjwvdGFibGU+PHRhYmxlI HdpZHRoPScxMDAlJyBzdH xrAV7kQz9fPEYvJAFoiEt yqWRiSxMgw4kg YXB (more content not included)... [facility] Coding Summary HTMLBase 64 DapbfztvKZa6sGj+PGhlY WQ+VY0EQEUwL52ihPUljH 0EH2iZRQ5QSGHXVPLAAM4 DFC7kjNV0VYdeB3PirrSc VxphfXRoPS05CLw5ODC0g TbqVBysyF7jqZTqS5c7Yr WzHJ27gZ36IJigNYXnXkY 3LjZpbjsgbWFy N8rvTiYlwOIdDgo+PHRhY mxlIHdpZHRoPScxMDAlJy VkzNjpLF9vQq6vIGWcSQD vbGxhcHNlOiBj c5exYECnSGjjFM6zwXxvE 7TysXC2NWVkw0r2Cg54qM I+SZLqYDK7nGsjFMioh31 2CwWku4xtNQR7 sGRdJDzaZWH8U24xj5B9S FUnBRZwQLU2pUI6xI4bnC jhpdolF0FgrQOsUjL7BHB 1fENazI8zzXzf jheirS4vLsm+R57WYU6XV ZVXRC1QCnd9M6ZzWcqurY I+JS39BZRsGU55zTMheCJ pf2bgpXd2VdZj KHTxUCN5qGxlITaft8MjM CRlU11ijMRmp7K6ZKAfhV ivyHEzVvJcsBP1mV7fPIg bmrfzp9sqfvos Yfcej4lpix92kK66I46tI ViuPLGgYNZ0UENhXRVnvI tmkv1nhR1xTu6+FNpik2o xm6hxuXe4InTv WSSeapVifNkqQQX6c3XhY c35I5CmyPxfv4VhYyw1wi 29dRHji2N3cQV1OBjgOES dkH8zGJabIlK5 OOOvWmRqkF85pASsLCtbC l0mtEmvfHydGE7jSGVtbr fzEHZonY7oJNVcrCYtrQy xBL3mZFAeyodj b687NcJuGJS0XNYgtEYeN 3UexQ5mDrQgUHVqDUFtH7 CjaKDmKUbrZ081ANpsQiM 3YPFbqfKyN9Hc IWDnaMfwFhP7y8G9Cm3Hr 7KdchbuUAZ5HIlzMAIyBc A8FpZnTkX5I4ZyKpn6WIK vnIllYU8tN1Gx CGBcvbdrxcvxyHO0OJTaV TGurL80lQLgCKtkIf3vf3 G8s481FDAaPMQwjH59Eb4 udDogMTBwdCBU cG9kpuolm7tqmbxqQnRhF EUePZr8SIh1DCCayKssHj UaPAA0WqE3ILB0gJFvtL1 brFllwzjlzW8g Oyc+C86kaT4gVOE3KUT5z wiyNSRjxnMiCZ22XQ75M5 RyPjwvdGFibGU+PGRpdiB qcNdlDA8vRvTs y1bsw0CcDTcjZ5KfHIOiB HkgMyv6CNGmLEY3lJX8wO 7mXPPlPOgqz1V6jXN5S8A bqhOapk4rw5gd ZNUeXIluG33vzMGqp7Y1V ISxiKJ7LBCmlEovOtLzwN 93Oyc+LZOzyXzby0MeMzf qy9bvh6wqcUq1 XaNvNSStgySveHnsDZW8c 6RsJh65M90eFUdwDBHkBD MuSKLeSUOboMftcn4udS3 wIi8+PGNvbCB3 kAR3zR1xHWApPxA8WFplX 964UaBhnWBkAextq2wlf6 vhhIm7XrHbWXVbueApfBf fEZO9e8ZuOp99 N70fYYgmEABlFSJjEXDnK BGicAgkji8xkW8qBv4+PC 8fk3luvp30kQ67bFY+PHR tDKP6vCgoZZxc IGRtkJ5pJYanHvE6TTCuV sSytB29eKEtGEubUf9uzL hkwRxbTP0sAKEpkwcgk27 3XgStn4hvDLHj iJEjPZkoNVC6Z03wa9I4F UBkXIHeQZZ7qIU5zP2ymH lnbjogbGVmdDsgdmVydGl rQNfeMYrvI878 IHRvcDsnPlBhdGllbnQgT yAbBKk5W7WzCut1CTFhrK ayIB9rrQKnWObqTn1utLt ncUvzBS3qTYLl xjcnp307TlNwq1eaSWJtx FFqGJizIOQ3V21xx1Q8JF FzQUAxABZ7kGH0pY0tnDu nbjogbGVmdDsg fdQziTakSWziMBxpP958M HRvcDsnPkJpcnRoIERhdG B1NA64CV75uWZzx9P5fPV 9Z2UmQZOqiztb vpxmeKO3JPTsAZLtzG19C x7mdGohTj9yQLVrGFV0MA QegQUsQ2QdyX1yJpPzDUW iDGAtF7NssRGx YXetX531TMolGkW5BWCnt rLeN1HbINLavLmbTnJ8n0 G2Nk1RH5C9AI16BQ83jLK ws1E7yXP8Y3Kp MCMnyfhucwbuuGR6TQXoP NYrxF16Gk1seCpzRj6kIL WnLFV4JNDctFBsU8JveK6 yOiAjMDAwMDAw N9BfdLAhXWubE643DZndI hM1CFJuatHnI5AtEKVfnT fqMeX7b9V0Ue1LAUt7UY0 0TG42nCHpf0L1 sMY2W1DoNNFphhuietmpc MO6XROsSNCqkD26Nk1cxH mkNh6uDLDiQJY9AZNbkSL wC4CvjL0pAnXw YQYqTGCbD3SpuCBbFKkbS 219HYqvUoC9ASKqihYqI5 MmMATxzAtaPqQ9b6P9Gy9 NUOTpIW71BBJ1 wTH8EX65JW11Z1FvMzuxq GFibGU+PHRhYmxlIHdpZH RoPScxMDAlJyBzdHlsZT0 lKy6kAGYnNJGa cItedWAzWuZsv2piLWFjM UjqFX8fbJtyU5LdmWR2FB Xgz9b0Dv49I89gS6KnnNF +VOLegFD5bGX8 lU9yEmCrHqB2NCuwW285E jAnhJPxYcguk2wce0yhyO e1TgZ4FYUjqpBtmUhwUMS 1f4QtRy50D28n IHdpZHRoPSIxNSUiIHZhb Dutsh1ffN0vZg4+PGNvbC B0tXZ3rV9bYtOnXqH5SUf zY595WiSzhWDf Hucyt3qtq5tloVd8MaKhR TDjsmMiqQefBWK8a2KjSa 24P7AvnHtfr8EeImb8xg1 2bAPrz2O0hHX4 J2JdRXHcpletrVDnxAsmX J9xEEVhhtwzCHKtpX9nAJ HgL2j0YaVnRgM3OWijJ7V cwwG0PSEesSIe TBcgNDK9E42pb3I8SHTaP VTzHJS8mJE9bR5cpIbrew ogbGVmdDsgdmVydGljYWw rMTlhU575PFDt wSbcSYHpzA1aWFPsdOTlh AigQA5gQHCifwigBlXDK7 QXGUILJvpEDRRFGQS9P1I pGzx4ZBUeeOvb HS5dfLZnGEqkQh2sxWuix UvySI0gLIWohmdhBHStxR 0gNIKlsSYxeFhjGP3wEVW ayhatb232YiSg RIC7ZXJvkPBuQ1VxeR4gX iOwFDRiGEIlT6YjpUTjYD xpG595LQmgDvI1SWItarI cZ4QuSRXciFwy UbQ4g4U1Fz5qKb7dND2mF Cj3XV77XV09rKPet6A0aA H8L3LwWDUwdvgqpbytyQZ 8OCNzLZUctG40 eYWhLYwkCf7ay8J8q401W BJjSORjxO91Rb1ojJfiII YftNDMfK2eaiyyn5mddtu gIzAwMDAwMDt0 ZTl0TFKkzOznGqKlCXN5K wU4HXB1dQIleE1peNgfsx mmcH0mAnn+MjUgWWVhcnM 4K3WrVub8JGFi qHwmTY8ofDNwIJqrUy1fc HvheFukAP0cVITihcvfCX GqpX5qINOriTUmrDcmYY5 yURDnvooph054 YeWfMCT4HKYklPSgV5Kds L0nEeHhDJEiUZAbY6IctD XhIDviY564OPzuLuJ2TKP xkcKhA0QaUPLp mSarKgN1c2L8Ii2PAQbAW X86NZ45tMTgq8S7nLU7E1 TiDKFumitsrutsrWO3BOU cUUVbpH01gEKi WMlxTd5ks6D9t556BANjK HXufB00Nj7szSuiGCRcaT HCrS3gwlulk1wtfiweDpA vBFGbBJo2VQb5 LXMnoConOhYsXOL6FaP5N SX2mLHgcQ3uwJebvdgngL 9wOyc+Y4X4L9LbQxiplNT +AH65LKVzEV35 qEZquTLmt6znbYe0DmLsA AVxZJD9kCenEGocb7EfNL XvW19ksZNlw9O7IPIxvFs hcHNlOyBlbXB0 uL5mGLlwqcljs8nxbsznO jpnk2wsku51dD89O40sDJ dpZHRoPSIzMCUiIHZhbGl nwu4zoM8xNq8+ QXIsuWI8wOE4uO9jXsHcR kR2HHpuF408HqLnjCNhHm vyc6huo2pglNv8LzVdNLS gdmFsaWduPSJ0 l8CcOq90X67kBInjNDMjF OUqSUJmUMVmzEvzix1cnL 9wIi8+UE5dc1bawx42rL2 8dHI+PHRkIHN0 xRuoYEhuSPZuwC1iPLdxT kD8EFJbZwOxiG76oWAxSH qmDt1cvCqlxRbsUP3eNKX snhkoq382RnSv n0urXMElbTDaMFsxTSO6B 23qj0A0IJYwMSVqYWD1mA G8eK7boQtipidhlJDheZn gdmVydGljYWwt IZpzX763JSIknRloXwHec YYvH8hemoNZBG5jPkarpP Q+SKLeSLU6tDaqLErcEBP mfJ6jLXGuG6l2 OdOtPeT1YVboY5HtofL9D JSsiWXiRJGfvEWQmV2iea avl7utkorkBeZoLGTmPTy 7UVw8TJPlkZqu RfPfAWU4YqY4BKA0bVDgv D0dqZitnjwaoP1eJfh+Rk lOOjwvdGQ+JYOsOJU6oHs rORzlMIJzhW5e WDXuA7u4QvFsIxY3NJpqA 8AqauG4MONivGYoBXQkaB ACsE3fflimf9euitxhCcI pKJCwBVi5RCl8 WZZliXxjYaOqKHU6RyZ7T MG1jFHhaK0rsPcsmjpomP 9wOyc+TVJOOjwvdGQ+PHR oHHW4fMwdRUkl QNTzcQ5iWCHwF0c4XqLqC vC6DOdpS5DhccG0KUIneZ OnMSStxDTJyQ6tvdbwd2s vcjogIzAwMDAw TZd8CAf1VGIubCuxRgJuN YH1OnR3ZTK3yJScqH5euR jfxqgaaZ2dBpg+UOH4YZN 3VH98ON62Z5Xr PjwvdGFibGU+PHRhYmxlI HdpZHRoPScxMDAlJyBzdH lyXS0lXs6uSBQpDAOpgXj seLWiVlLmc1kq YXB (more content not included)... Normal [facility] .Auto Diff 03-24-2021 Auto Adair % 6 % Normal 05-20 [facility] Comment on above: Performed By: #### 7 [id number], [id number], [id number], [id number] #### [facility] (DEFAULT) [address] [place] [address] 82377 Baso Abs# 0.0 x10 Normal 0.0-0.2 [facility] Comment on above: Performed By: #### 7 357674, [id number], 3697161, [id number] #### [facility] (DEFAULT) [address] [place] [address] 94885 Basophils/100 WBC (Bld) 0.2 % Normal 0.2-2.0 [facility] Comment on above: Performed By: #### 7 061343, [id number], 0619998, [id number] #### [facility] (DEFAULT) [address] [place] [address] 16200 Eos Abs# 0.1 x10 Normal 0.0-0.4 [facility] Comment on above: Performed By: #### 7 864181, [id number], 9789123, [id number] #### [facility] (DEFAULT) [address] [place] [address] 79797 Eosinophils/100 WBC (Bld) 0.4 % Low 0.9-4.0 [facility] Comment on above: Performed By: #### 7 216194, [id number], 1235865, 60127632 #### [facility] (DEFAULT) [address] [place] [address] 67879 Lymph Abs# 0.8 x10 Low 1.3-2.9 [facility] Comment on above: Performed By: #### 7 418329, [id number], 0978611, 97358475 #### [facility] (DEFAULT) [address] [place] [address] 46923 Lymphocytes/100 WBC (Bld) 4 % Low 14-48 [facility] Comment on above: Performed By: #### 7 563932, [id number], 0959708, [id number] #### [facility] (DEFAULT) [address] [place] [address] 57923 Adair Abs# 1.0 x10 High 0.0-0.8 [facility] Comment on above: Performed By: #### 7 060969, [id number], 9453944, [id number] #### [facility] (DEFAULT) [address] [place] [address] Neut Abs# 15.6 x10 High 1.5-9.2 [facility] Comment on above: Performed By: #### 7 453661, [id number], 7868176, 92655379 #### [facility] (DEFAULT) [address] [place] [address] Neutrophils/100 WBC (Bld) 90 % High 44-88 [facility] Comment on above: Performed By: #### 7 383625, [id number], 1827985, 68596023 #### [facility] (DEFAULT) [address] [place] [address] .QC SARS-CoV-2 (COVID-19)/Fl u/RSV (GeneXpert)on 03-24-2021 Internal Control Pass Normal [facility] Comment on above: Order Comment: Order ed by Renay.[[email or web address]] Performed By: #### 7 359570, [id number], 0943561, [id number] #### [facility] (DEFAULT) [address] [place] [address] CBC w/ Auto Diffon Erythrocyte distribution width (RBC) [Ratio] 13.1 % Normal 11.5-15.0 [facility] Comment on above: Performed By: #### 7 055752, [id number], 0405494, 21022507 #### [facility] (DEFAULT) [address] [place] [address] Hematocrit (Bld) [Volume fraction] 47.2 % Normal 34.8-51.9 [facility] Comment on above: Performed By: #### 7 661876, [id number], 1958295, 05001093 #### [facility] (DEFAULT) [address] [place] [address] Hemoglobin (Bld) [Mass/Vol] 16.2 g/dL Normal 11.8-17.7 [facility] Comment on above: Performed By: #### 7 439454, [id number], 7614469, 74551194 #### [facility] (DEFAULT) [address] [place] [address] Instr WBC 17.4 x10 Invalid Interpretation Code [facility] Comment on above: Performed By: #### 7 368928, [id number], 6931135, 54594042 #### [facility] (DEFAULT) [address] [place] [address] 11005 Man Diff? Auto Normal [facility] Comment on above: Performed By: #### 7 997100, [id number], 2683897, 63727111 #### [facility] (DEFAULT) [address] [place] [address] 18446 MCH (RBC) [Entitic mass] 28 pg Normal 24-34 [facility] Comment on above: Performed By: #### 7 268280, [id number], 2074989, 99983577 #### [facility] (DEFAULT) [address] [place] [address] 37363 MCHC (RBC) [Mass/Vol] 34 g/dL Normal 26-37 [facility] Comment on above: Performed By: #### 7 986226, [id number], 6268604, 29128530 #### [facility] (DEFAULT) [address] [place] [address] 67719 MCV (RBC) [Entitic vol] 81 fL Normal 81-100 [facility] Comment on above: Performed By: #### 7 697628, [id number], 3726563, 42509328 #### [facility] (DEFAULT) [address] [place] [address] 56552 Platelet 314 x10 Normal 138-427 [facility] Comment on above: Performed By: #### 7 778156, [id number], 0852985, 40035382 #### [facility] (DEFAULT) [address] [place] [address] 48389 Platelet mean volume (Bld) [Entitic vol] 9.1 fL Normal 6.3-10.2 [facility] Comment on above: Performed By: #### 7 753413, [id number], 4688064, 95558245 #### [facility] (DEFAULT) [address] [place] [address] 10517 RBC 5.81 x10 High 3.70-5.30 [facility] Comment on above: Performed By: #### 7 903596, [id number], 5778245, 05427664 #### [facility] (DEFAULT) [address] [place] [address] 35978 WBC 17.4 x10 High 3.5-10.5 [facility] Comment on above: Result Comment: Slid e Reviewed Performed By: #### 7 722304, [id number], 7669245, [id number] #### [facility] (DEFAULT) [address] [place] [address] 90916 CMP Standardon 03-24-2021 eGFR Non AA >60 Invalid Interpretation Code [facility] Comment on above: Performed By: #### 7 405140, [id number], 5786231, 80539376 #### [facility] (DEFAULT) [address] [place] [address] 85487 eGFR AA >60 Invalid Interpretation Code [facility] Comment on above: Result Comment: [employer] trish Kidney disease could be indicated at eGFRs of less than 60 ml/min/1.73m2. Kidney Failure is indicated at less than 15 ml/min/1.73m2 Performed By: #### 7 347292, [id number], 0960901, 24329869 #### [facility] (DEFAULT) [address] [place] [address] 83962 Albumin [Mass/Vol] 4.6 g/dL Normal 3.5-5.0 [facility] Comment on above: Performed By: #### 7 170482, [id number], 6996084, 92309392 #### [facility] (DEFAULT) [address] [place] [address] 55270 Albumin/Globulin [Mass ratio] 1.3 {ratio} Low 1.4-2.6 [facility] Comment on above: Performed By: #### 7 210698, [id number], 3090441, 82817290 #### [facility] (DEFAULT) [address] [place] [address] 95055 Alk Phos 84 IU/L Normal 32-91 [facility] Comment on above: Performed By: #### 7 055306, [id number], 2091723, 25458043 #### [facility] (DEFAULT) [address] [place] [address] 16848 ALT [Catalytic activity/Vol] 42.0 U/L Normal 17.0-63.0 [facility] Comment on above: Performed By: #### 7 236515, [id number], 3570082, 98987957 #### [facility] (DEFAULT) [address] [place] [address] 87144 Anion gap [Moles/Vol] 14.0 mmol/L Normal 5.0-19.0 [facility] Comment on above: Performed By: #### 7 801914, [id number], 6332516, 23883302 #### [facility] (DEFAULT) [address] [place] [address] 75761 AST [Catalytic activity/Vol] 32 U/L Normal 15-41 [facility] Comment on above: Performed By: #### 7 219644, [id number], 0427086, 14569231 #### [facility] (DEFAULT) [address] [place] [address] 21602 Bili Total 1.2 mg/dL Normal 0.3-1.2 [facility] Comment on above: Performed By: #### 7 265005, [id number], 7688776, 87744363 #### [facility] (DEFAULT) [address] [place] [address] 84049 Calcium [Mass/Vol] 9.3 mg/dL Normal 8.9-10.3 [facility] Comment on above: Performed By: #### 7 491046, [id number], 4107130, 04840685 #### [facility] (DEFAULT) [address] [place] [address] 16775 Chloride [Moles/Vol] 92 mmol/L Low 101-111 [facility] Comment on above: Performed By: #### 7 900144, [id number], 8560751, 03602964 #### [facility] (DEFAULT) [address] [place] [address] 68130 CO2 [Moles/Vol] 31 mmol/L Normal 21-32 [facility] Comment on above: Performed By: #### 7 283749, [id number], 8183352, 46167985 #### [facility] (DEFAULT) [address] [place] [address] 87191 Creatinine [Mass/Vol] 0.68 mg/dL Low 0.90-1.30 [facility] Comment on above: Performed By: #### 7 968350, [id number], 2592360, 56668492 #### [facility] (DEFAULT) [address] [place] [address] 75513 Globulin (S) [Mass/Vol] 3.5 g/dL Normal 1.5-4.3 [facility] Comment on above: Performed By: #### 7 862277, [id number], 8562722, 80463831 #### [facility] (DEFAULT) [address] [place] [address] 69755 Glucose [Mass/Vol] 106.0 mg/dL Normal 74.0-118.0 [facility] Comment on above: Performed By: #### 7 179451, [id number], 3814017, 90114289 #### [facility] (DEFAULT) [address] [place] [address] 55056 Osmolality 268 mOsm/L Invalid Interpretation Code [facility] Comment on above: Performed By: #### 7 205034, [id number], 0429269, 83722487 #### [facility] (DEFAULT) [address] [place] [address] 21810 Potassium [Moles/Vol] 3.0 mmol/L Low 3.6-5.1 [facility] Comment on above: Performed By: #### 7 340974, [id number], 0661642, 40696774 #### [facility] (DEFAULT) [address] [place] [address] 93412 Protein [Mass/Vol] 8.1 g/dL Normal 6.5-8.1 [facility] Comment on above: Performed By: #### 7 110483, [id number], 7568189, 39531311 #### [facility] (DEFAULT) [address] [place] [address] 29770 Sodium [Moles/Vol] 134.0 mmol/L Low 136.0-144.0 [facility] Comment on above: Performed By: #### 7 026823, [id number], 2946600, 12368739 #### [facility] (DEFAULT) [address] [place] [address] 97196 Urea nitrogen [Mass/Vol] 11 mg/dL Normal 8-26 [facility] Comment on above: Performed By: #### 7 666669, [id number], 5522577, 95305692 #### [facility] (DEFAULT) [address] [place] [address] 34543 Urea nitrogen/Creatinine [Mass ratio] 16.0 mg/mg Normal 4.6-16.2 [facility] Comment on above: Performed By: #### 7 543154, [id number], 1543706, 03350857 #### [facility] (DEFAULT) [address] [place] [address] 48432 Magnesiumon 03-24-2021 Magnesium [Mass/Vol] 1.07 mg/dL Low 1.80-2.50 [facility] Comment on above: Performed By: #### 7 931621, [id number], 8698511, 40398380 #### [facility] (DEFAULT) [address] [place] [address] 97399 BASIC METABOLIC PANELon -3 Calcium 10.4 mg/dL High 8.6-10.3 [facility] Comment on above: Performed By: #### 1 69, 16099 ####[facility] [place] [address], [facility] Chloride 99 mmol/L Normal 98-107 [facility] Comment on above: Performed By: #### 1 69, 55601 ####[facility] [place] [address], [facility] CO2 29 mmol/L Normal 21-31 [facility] Comment on above: Performed By: #### 1 69, 21287 ####[facility] [place] [address], [facility] Creatinine 0.82 mg/dL Normal 0.70-1.30 [facility] Comment on above: Performed By: #### 1 69, 26756 ####[facility] [place] [address], [facility] eGFR (black) mL/min/{1.73_m2} Normal >60 [facility] Comment on above: Performed By: #### 1 69, 69726 ####[facility] [place] [address], [facility] eGFR (non-black) mL/min/{1.73_m2} Normal >60 [facility] Comment on above: Performed By: #### 1 69, 75061 ####[facility] [place] [address], [facility] Glucose mass conc 84 mg/dL Normal 70-100 [facility] Comment on above: Performed By: #### 1 69, 09079 ####[facility] [place] [address], [facility] Potassium molar conc 4.5 mmol/L Normal 3.5-5.1 [facility] Comment on above: Performed By: #### 1 69, 58089 ####[facility] [place] [address], [facility] Sodium 136 mmol/L Normal 136-145 [facility] Comment on above: Performed By: #### 1 69, 72483 ####[facility] [place] [address], [facility] Urea nitrogen 14 mg/dL Normal 7-25 [facility] Comment on above: Performed By: #### 1 69, 58198 ####[facility] [place] [address], [facility] MAGNESIUM BLOODon 06-07-2017 Magnesium 1.6 mg/dL Low 1.9-2.7 [facility] Comment on above: Performed By: #### 1 5170, 49263 ####[facility] Vital Signs Date Time Vital Sign Value Performing Clinician Anthony foreman 10-06-2023 15:53-0400 Body height 177.8 cm MD Shaikh Alvarez Work Phone: [facility] 10-06-2023 15:53-0400 Body mass index (BMI) [Ratio] 34.9 kg/m2 MD Shaikh Alvarez Work Phone: [facility] 10-06-2023 15:53-0400 Body temperature 98.4 [degF] MD Shaikh Alvarez Work Phone: [facility] 10-06-2023 15:53-0400 Body weight 110.39 kg MD Shaikh Alvarez Work Phone: [facility] 10-06-2023 15:53-0400 Diastolic blood pressure 80 mm[Hg] MD Shaikh Alvarez Work Phone: [facility] 10-06-2023 15:53-0400 Heart rate 82 /min MD Shaikh Alvarez Work Phone: [facility] 10-06-2023 15:53-0400 Respiratory rate 16 /min MD Shaikh Alvarez Work Phone: [facility] 10-06-2023 15:53-0400 SaO2% (BldA) [Mass fraction] 98 % MD Shaikh Alvarez Work Phone: [facility] 10-06-2023 15:53-0400 Systolic blood pressure 119 mm[Hg] MD Shaikh Alvarez Work Phone: [facility] 09-01-2023 14:39-0400 Diastolic blood pressure 67 mm[Hg] MD Shaikh Alvarez Work Phone: [facility] 09-01-2023 14:39-0400 Heart rate 81 /min MD Shaikh Alvarez Work Phone: [facility] 09-01-2023 14:39-0400 Respiratory rate 16 /min MD Shaikh Alvarez Work Phone: [facility] 09-01-2023 14:39-0400 SaO2% (BldA) [Mass fraction] 96 % MD Shaikh Alvarez Work Phone: [facility] 09-01-2023 14:39-0400 Systolic blood pressure 116 mm[Hg] MD Shaikh Alvarez Work Phone: [facility] 09-01-2023 13:05-0400 Body height 177.8 cm MD Shaikh Alvarez Work Phone: [facility] 09-01-2023 13:05-0400 Body temperature 98.6 [degF] MD Shaikh Alvarez Work Phone: [facility] 09-01-2023 13:05-0400 Body weight 104.3 kg MD Shaikh Alvarez Work Phone: [facility] 08-18-2023 13:24-0400 Body height 172.72 cm MD Shaikh Alvarez Work Phone: [facility] 08-18-2023 13:24-0400 Body weight 104.32 kg MD Shaikh Alvarez Work Phone: [facility] 08-18-2023 13:24-0400 Diastolic blood pressure 87 mm[Hg] MD Shaikh Alvarez Work Phone: [facility] 08-18-2023 13:24-0400 Heart rate 99 /min MD Shaikh Alvarez Work Phone: [facility] 08-18-2023 13:24-0400 Respiratory rate 16 /min MD Shaikh Alvarez Work Phone: [facility] 08-18-2023 13:24-0400 SaO2% (BldA) [Mass fraction] 97 % MD Shaikh Alvarez Work Phone: [facility] 08-18-2023 13:24-0400 Systolic blood pressure 128 mm[Hg] MD Shaikh Alvarez Work Phone: [facility] 07-18-2023 13:02-0400 Body height 175.26 cm MD Shaikh Alvarez Work Phone: [facility] 07-18-2023 13:02-0400 Body mass index (BMI) [Ratio] 34.8 kg/m2 MD Shaikh Alvarez Work Phone: [facility] 07-18-2023 13:02-0400 Body weight 107.04 kg MD Shaikh Alvarez Work Phone: [facility] 07-18-2023 13:02-0400 Diastolic blood pressure 90 mm[Hg] MD Shaikh Alvarez Work Phone: [facility] 07-18-2023 13:02-0400 Heart rate 79 /min MD Shaikh Alvarez Work Phone: [facility] 07-18-2023 13:02-0400 Systolic blood pressure 129 mm[Hg] MD Shaikh Alvarez Work Phone: [facility] 06-16-2023 15:56-0500 Body height 172.7 cm Shaikh Kim CALL Work Phone: [facility] 06-16-2023 15:56-0500 Body mass index (BMI) [Ratio] 35.73 kg/m2 Shaikh Kim CALL Work Phone: [facility] 06-16-2023 15:56-0500 Body temperature 97.9 [degF] Shaikh Kim CALL Work Phone: [facility] 06-16-2023 15:56-0500 Body weight 106.59 kg Shaikh Kim CALL Work Phone: [facility] 06-16-2023 15:56-0500 Diastolic blood pressure 76 mm[Hg] Shaikh Kim CALL Work Phone: [facility] 06-16-2023 15:56-0500 Heart rate 72 /min Shaikh Kim CALL Work Phone: [facility] 06-16-2023 15:56-0500 SaO2% (BldA) [Mass fraction] 96 % Shaikh Kim CALL Work Phone: [facility] 06-16-2023 15:56-0500 Systolic blood pressure 110 mm[Hg] Shaikh Kim CALL Work Phone: [facility] 11-25-2022 15:40-0400 Body height 175.26 cm Marcelino Andra Other [employer] Other 11-25-2022 15:40-0400 Body mass index (BMI) [Ratio] 34.23 kg/m2 Marcelino Andra Other [employer] Other 11-25-2022 15:40-0400 Body temperature 98 [degF] Marcelino Andra Other [employer] Other 11-25-2022 15:40-0400 Body weight 105.14 kg Marcelino Andra Other [employer] Other 11-25-2022 15:40-0400 Diastolic blood pressure 81 mm[Hg] Marcelino Andra Other [employer] Other 11-25-2022 15:40-0400 Respiratory rate 18 /min Marcelino Andra Other [employer] Other 11-25-2022 15:40-0400 SaO2% (BldA) [Mass fraction] 98 % Marcelino Andra Other [employer] Other 11-25-2022 15:40-0400 Systolic blood pressure 134 mm[Hg] Marcelino Andra Other [employer] Other 12-02-2021 09:05-0400 Diastolic blood pressure 88 mm[Hg] Provider AMAProvider Work Phone: [phone] [place] [address] Work Phone: 12-02-2021 09:05-0400 Systolic blood pressure 118 mm[Hg] Provider AMAProvider Work Phone: [phone] [place] [address] Work Phone: 12-02-2021 09:04-0400 Body height 177.8 cm Provider AMAProvider Work Phone: [phone])[phone] [place] [address] Work Phone: 12-02-2021 09:04-0400 Body mass index (BMI) [Ratio] 31.14 kg/m2 Provider AMAProvider Work Phone: [phone] [place] [address] Work Phone: 12-02-2021 09:04-0400 Body surface area Derived from formula 2.16 m2 Provider AMAProvider Work Phone: [phone] [place] [address] Work Phone: 12-02-2021 09:04-0400 Body weight 98.43 kg Provider AMAProvider Work Phone: [phone] [place] [address] Work Phone: 12-02-2021 09:04-0400 Diastolic blood pressure 86 mm[Hg] Provider AMAProvider Work Phone: [facility] Work Phone: 12-02-2021 09:04-0400 Heart rate 66 /min Provider AMAProvider Work Phone: [facility] Work Phone: 12-02-2021 09:04-0400 Systolic blood pressure 122 mm[Hg] Provider AMAProvider Work Phone: [facility] Work Phone: 03-25-2021 12:20-0500 Body height 175.26 cm Marcelino Andra Other [employer] Other 03-25-2021 12:20-0500 Body mass index (BMI) [Ratio] 30.59 kg/m2 Marcelino Andra Other [employer] Other 03-25-2021 12:20-0500 Body temperature 99.1 [degF] Marcelino Andra Other [employer] Other 03-25-2021 12:20-0500 Body weight 93.99 kg Marcelino Andra Other [employer] Other 03-25-2021 12:20-0500 Diastolic blood pressure 82 mm[Hg] Marcelino Andra Other [employer] Other 03-25-2021 12:20-0500 Respiratory rate 18 /min Marcelino Andra Other [employer] Other 03-25-2021 12:20-0500 SaO2% (BldA) [Mass fraction] 96 % Marcelino Andra Other [employer] Other 03-25-2021 12:20-0500 Systolic blood pressure 125 mm[Hg] Marcelino Villegas Other [facility] [employer] Other Encounters Encounter Date Encounter Type Care Provider Facility Start: 10-06-2023 End: 10-06-2023 ambulatory MD Shaikh Alvarez Work Phone: [facility] Work Phone: Start: 10-06-2023 End: 10-06-2023 Patient encounter procedure MD Shaikh Alvarez Work Phone: [facility] Work Phone: Start: 10-06-2023 Non-patient / Non-visit MD Shaikh Alvarez Work Phone: [facility] [employer] Work Phone: Start: 09-01-2023 End: 09-01-2023 ambulatory Imad Asaad Facility:[facility] Start: 09-01-2023 Non-patient / Non-visit MD Shaikh Alvarez Work Phone: [facility] Work Phone: Start: 09-01-2023 End: 09-01-2023 Admission to same day surgery center MD Shaikh Alvarez Work Phone: [facility] Work Phone: Start: 09-01-2023 End: 09-01-2023 ambulatory MD Shaikh Alvarez Work Phone: [facility] Work Phone: Start: 08-18-2023 End: 08-18-2023 ambulatory Imad Asaad Facility:[facility] Start: 08-18-2023 End: 08-18-2023 Admission to same day surgery center MD Shaikh Alvarez Work Phone: [facility] Work Phone: Start: 08-18-2023 End: 08-18-2023 ambulatory MD Shaikh Alvarez Work Phone: [facility] Work Phone: Start: 08-04-2023 End: 08-04-2023 ambulatory OSVALDO BRINK Not Available Start: 08-02-2023 End: 08-02-2023 ambulatory JEREMIAH MERRITT Not Available Start: 07-28-2023 End: 07-28-2023 ambulatory FRANCE REINA Not Available Start: 07-23-2023 End: 07-23-2023 ambulatory Imad Asaad Facility:[facility] Start: 07-23-2023 End: 07-23-2023 ambulatory MD Shaikh Alvarez Work Phone: [facility] Work Phone: Start: 07-23-2023 End: 07-23-2023 Patient encounter procedure MD Shaikh Alvarez Work Phone: [facility] [place] Work Phone: Start: 07-21-2023 End: 07-21-2023 ambulatory FRANCE REINA Not Available Start: 07-19-2023 End: 07-19-2023 ambulatory OSVALDO BRINK Not Available Start: 07-18-2023 End: 07-18-2023 Patient encounter procedure MD Shaikh Alvarez Work Phone: [facility] Work Phone: Start: 07-14-2023 [...] 04-11-2023 End: 04-11-2023 ambulatory Imad Asaad Other [employer] Other Start: 04-11-2023 Encounter by [employer] link Imad Asaad [facility] Start: 11-25-2022 End: 11-25-2022 ambulatory Marcelino Andra Other [employer] Other Start: 11-25-2022 Office outpatient visit 15 minutes Marcelino Andra [facility] [place] Start: 11-25-2022 Telephone encounter Marcelino Andra [facility] Start: 08-27-2022 End: 08-27-2022 ambulatory Marcelino Andra Other [employer] Other Start: 08-27-2022 Telephone encounter Marcelino Andra [facility] Start: 06-23-2022 End: 06-24-2022 ambulatory SHAIKH Sawyer ALVAREZ Facility:[facility] Start: 01-27-2022 End: 01-28-2022 ambulatory NIDA WOODS Facility:[facility] Start: 12-02-2021 Office outpatient ne w 45 minutes Provider AMAProvider Work Phone: [facility] Work Phone: Start: 11-16-2021 End: 11-17-2021 ambulatory MARCELINO ANDRA Facility:[facility] Start: 11-12-2021 End: 11-13-2021 ambulatory MARCELINO ANDRA Facility:[facility] Start: 11-11-2021 End: 11-12-2021 ambulatory MARCELINO ANDRA [facility] [employer] Other Start: 11-11-2021 Telephone encounter Marcelino Andra [facility] Start: 11-10-2021 End: 11-10-2021 ambulatory Marcelino Andra Other [employer] Other Start: 11-10-2021 Telephone encounter Marcelino Andra [facility] [place] Start: 11-08-2021 End: 11-09-2021 ambulatory NIDA CHUCK Facility:[facility] Start: 10-13-2021 End: 10-13-2021 ambulatory NIDA CHUCK Facility:[facility] Start: 10-13-2021 End: 10-13-2021 ambulatory Nida A Chuck Facility:[facility] Start: 09-23-2021 ambulatory MARCELINO ANDRA Facility: 1 Start: 06-25-2021 End: 07-03-2021 ambulatory Nida A Chuck Facility:[facility] Start: 03-25-2021 End: 03-25-2021 ambulatory Marcelino Andra Other [employer] Other Start: 03-25-2021 Office outpatient visit 15 minutes Marcelino Andra [facility] Start: 03-24-2021 End: 04-07-2021 ambulatory Nida A Chuck [facility] [employer] Other Start: 03-24-2021 Telephone encounter Marcelino Andra [facility] Start: 07-22-2017 End: 07-23-2017 Ambulatory MARBELLA MAVERICK Facility:[facility] Start: 06-07-2017 End: 06-08-2017 Ambulatory OSIYEMI OSINOWO Facility:[facility] Procedures Date Procedure Procedure Detail Performing Clinician Start: 09-01-2023 Esophagogastroduodenoscopy MD Shaikh Alvarez Work Phone: Start: 08-18-2023 Esophagogastroduodenoscopy MD Shaikh Alvarez Work Phone: NEGATED: Highlighted row has not occurred! Total colonoscopy Provider Amelia er Work Phone: Plan of Treatment Date Care Activity Detail Author Start: 09-01-2023 [facility] Start: 08-18-2023 [facility] Start: 06-27-2023 End: 06-27-2023 Patient encounter procedure 06/27/2023 9:45 AM EST Office Visit [facility] [address] [place] [address] Shaikh Alvarez MD [address] [place] [id number] [facility] Start: 06-23-2023 End: 06-23-2023 ambulatory 06/23/2023 1:00 PM EST Evaluation [facility] [address] [facility] [address] [place] [address] France Reina, PT [address] [place] [address] [place] [address] [facility] Start: 06-16-2023 End: 06-16-2024 MR Shoulder - right WO contrast MR shoulder right wo IV contrast Imaging Routine Acute pain of right shoulder Expected: 06/16/2023, Expires: 06/16/2024 [facility] Work Phone: Comment on above: Expected: 06/16/2023 , Expires: 06/16/2024 Start: 01-07-2023 Influenza vaccination Influenza Vacc ine (#1) [facility] Start: 01-05-2022 STRESS NUC, Provider : FRANCISCO YOUNG NUCLEAR 01,[id number], Status: Pen, Time: 12:00 PM STRESS NUC, Provider: FRANCISCO YOUNG NUCLEAR 01,[id number], Status: Pen, Time: 12:00 PM [facility] Work Phone: Start: 01-05-2022 ECHO, Provider: FRANCISCO YOUNG ULTRASOUND 01,[id number], Status: Pen, Time: 9:45 AM ECHO, Provider: FRANCISCO HHVI ULTRASOUND [id number], Status: Pen, Time: 9:45 AM [facility] Work Phone: Patient Education Gastric Ulcer (DC) [facility] Work Phone: Renal function 2000 panel - Serum or Plasma [facility] Immunizations Immunization Date Immunization Notes Care Provider Fa cility 10-04-2020 Pfizer-BioNTech COVID-19 Vacc 30 MCG/0.3ML Intramuscular Suspension Provider AMAProvider Work Phone: [facility] Work Phone: 09-07-2020 Pfizer-BioNTech COVID-19 Vacc 30 MCG/0.3ML Intramuscular Suspension Provider AMAProvider Work Phone: [facility] Work Phone: 12-14-2000 diphtheria, tetanus toxoids and acellular pertussis vaccine, unspecified formulation Provider AMAProvider Work Phone: [facility] Work Phone: 12-14-2000 measles, mumps and rubella virus vaccine Provider AMAProvider Work Phone: [facility] Work Phone: 12-14-2000 poliovirus vaccine, inactivated Provider AMAProvider Work Phone: [facility] Work Phone: 02-06-1997 diphtheria, tetanus toxoids and acellular pertussis vaccine, unspecified formulation Provider AMAProvider Work Phone: [facility] Work Phone: 02-06-1997 haemophilus influenz ae type b vaccine, conjugate unspecified formulation Provider AMAProvider Work Phone: [facility] Work Phone: 02-06-1997 measles, mumps and rubella virus vaccine Provider AMAProvider Work Phone: [facility] Work Phone: 10-08-1996 diphtheria, tetanus toxoids and acellular pertussis vaccine, unspecified formulation Provider AMAProvider Work Phone: [phone] [place] [address] Work Phone: 10-08-1996 haemophilus influenz ae type b vaccine, conjugate unspecified formulation Provider AMAProvider Work Phone: [phone] [place] [address] Work Phone: 10-08-1996 hepatitis B vaccine, pediatric or pediatric/adolescent dosage Provider AMAProvider Work Phone: [phone] [place] [address] Work Phone: 10-08-1996 trivalent poliovirus vaccine, live, oral Provider AMAProvider Work Phone: [phone] [place] [address] Work Phone: 04-02-1996 DTP-Haemophilus influenzae type b conjugate vaccine Provider AMAProvider Work Phone: [phone] [place] [address] Work Phone: 04-02-1996 trivalent poliovirus vaccine, live, oral Provider AMAProvider Work Phone: [phone] [place] [address] Work Phone: 1995 DTP-Haemophilus influenzae type b conjugate vaccine Provider AMAProvider Work Phone: [phone] [place] [address] Work Phone: 1995 hepatitis B vaccine, pediatric or pediatric/adolescent dosage Provider AMAProvider Work Phone: [phone] [place] [address] Work Phone: 1995 trivalent poliovirus vaccine, live, oral Provider AMAProvider Work Phone: [phone] [place] [address] Work Phone: 1995 hepatitis B vaccine, pediatric or pediatric/adolescent dosage Provider AMAProvider Work Phone: [facility] Work Phone: Payers Date Payer Category Payer Self-pay [id number] 2023 Private Health Insurance [facility] [id number] 2023 Private Health Insurance [facility] [id number] 2023-Present [address] [place] [address] [id number]. [id number] 2023 Private Health Insurance [facility] [id number] 2021 Unknown [id number] 2.16.840.1.700887.19 1995 Unknown [id number] 2.16.840.1.520724.3.579.2. 718 1995 Unknown [id number] 2.16.840.1.567305.3.579.2. 718 1995 Unknown [id number] 2.16.840.1.960916.3.579.2. 718 1995 Unknown [id number] 2.16.840.1.269619.3.579.2. 718 1995 Unknown [id number] 2.16.840.1.946851.3.579.2. 593 1995 Unknown [id number] 2.16.840.1.333171.3.579.2. 59 1995 Unknown [id number] 2.16.840.1.466936.3.579.2. 593 1995 Unknown [id number] 2.16.840.1.529874.3.579.2. 593 1995 Unknown [id number] 2.16.840.1.650566.3.579.2. 593 1995 Unknown [id number] 2.16.840.1.997286.3.579.2. 593 1995 Unknown [id number] 2.16.840.1.200678.3.579.2. 593 1995 Unknown [id number] 2.16.840.1.479881.3.579.2. 593 1995 Unknown [id number] 2.16.840.1.648719.3.579.2. 1258 1995 Unknown [id number] 2.16.840.1.531183.3.579.2. 1258 1995 Unknown [id number] 2.16.840.1.134086.3.579.2. 1258 1995 Unknown [id number] 2.16.840.1.206515.3.579.2. 1258 1995 Unknown [id number] 2.16.840.1.337741.3.579.2. 1258 1995 Unknown [id number] 2.16.840.1.453251.3.579.2. 1258 1995 Unknown [id number] 2.16.840.1.392652.3.579.2. 1258 1995 Unknown [id number] 2.16.840.1.566600.3.579.2. 1258 1995 Unknown [id number] 2.16.840.1.550172.3.579.2. 1258 1995 Unknown [id number] 2.16.840.1.596713.3.579.2. 1258 1995 Unknown [id number] 2.16.840.1.589443.3.579.2. 9 1959 Private Health Insurance [id number] 1959 Private Health Insurance [id number] 1959 Self-pay [id number] 1959 Unknown [id number] Unknown [id number] Unknown Unknown [id number] 2.16.840.1.142833.3.579.2. 531 Unknown [id number] 2.16.840.1.640315.3.579.2. 531 Unknown [id number] 2.16.840.1.336482.3.579.2. 531 Social History Date Type Detail Facility Unknown if ever smoked [employer] Other Start: 06-16-2023 Sex Assigned At [employer] Other Start: 06-16-2023 No illicit drug use No illicit drug use [facility] Work Phone: Comment on above: 1 can of pop daily.; Start: 06-16-2023 End: 10-06-2023 Tobacco smoking status NHIS Never smoked tobacco [facility] Start: 06-16-2023 End: 06-20-2023 Alcohol intake Lifetime non-drinker (finding) [facility] Start: 1995 Sex Assigned At Not on file [facility] Start: 1995 Sex Assigned At Male [facility] NEGATED: Highlighted rowStart: NINF History of tobacco use Passive smoker [facility] Goals Date Patient Goal Desired Activity /State Clinical Notes 03-25-2021 to 09-01-2023 Shaikh Kim MD - 06/16/2023 4:38 PM Julianne Alvarez MD - 06/16/2023 3:45 PM EST Note Date & Type Note Facility 09-01-2023 Procedure note [facility] 06-16-2023 History of Present illness Narrative Associated [...] weeks (around 06/30/2023). documented in this encounter [facility] 11-25-2022 Evaluation note Encounter Date Diagnosis [...] the Gitelman syndrome. Continue oral magnesium supplement. [employer] Other 04-21-2023 Evaluation note* Encounter Date Diagnosis Assessment Notes Treatment Notes Treatment Clinical Notes Aug, Hypomagnesemia (ICD-10 - E83.42) Aug, Hypokalemia (ICD-10 - E87.6) [employer] Other 07-06-2022 Evaluation note* Encounter Date Diagnosis Assessment Notes Treatment Notes Treatment Clinical Notes Nov, Leukocytosis (ICD-10 - D72.829) Nov, Hypomagnesemia (ICD-10 - E83.42) Nov, Hypokalemia (ICD-10 - E87.6) [employer] Other 07-04-2022 Chief complaint Narrative - Reported* [...] or ischemic defects and follow-up as needed [facility] Work Phone: 1(534) 584-566107-04-2022 Chief complaint Narrative - Reported* [place] [...] or ischemic defects and follow-up as needed [facility] Work Phone: 1([phone]) 484-625511-17-2021 Evaluation note* Encounter Date Diagnosis Assessment Notes [...] weeks to make sure it is resolved. [employer] Other Evaluation noteNo [facility] [employer] Other Evaluation note* Diagnosis Acute pain of right shoulder- Primary documented [facility] Diagnosis Infraspinatus strain, right, subsequent encounter- Primary [facility] this encounter [facility] Diagnosis Onset Date Resolution Status Abdominal pain [facility] Work Phone: Evaluation note* Diagnosis Onset Date Resolution Status Abdominal pain acute Gitelman syndrome acute Hypokalemia acute Hypomagnesemia [facility] Work Phone: History and physical note Author Carlos Johnson [facility] September 01, 2023 2:03pm Note Date/Time September 01, 2023 1:5 2pm [facility] [address] [place] [address] Gastroenterology H&P Signed Patient: Wood Horn MR#: [id number] : 1995 Acct:[id number] Age/Sex: 27 / M Adm Date: 4 Loc: Room: Type: [facility] Attending Dr: Carlos Johnson MD Copies to: [...] M.D. Documented By: Carlos Johnson MD 09/01/23 0811 Signed By: <Electronically signed by Carlos Johnson MD> 09/01/23 9787 [facility] Work Phone: History general Narrative - [facility] [employer] 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 Other Reason for referral (narrative)* Consultation (Routine) - Pending Review Specialty Diagnoses / Procedures Referred By Sonny peters Referred To Contact Orthopaedic Surgery Diagnoses Infraspinatus strain, right, subsequent encounter Shaikh Alvarez MD [address] [place] [address] Rey Cruz MD [address] [place] [id number] Referral ID Status Reason Start Date Expiration Date Visits Requested Visits Authorized [id number] Pending Review Specialty Services Required 06/22/2023 12/19/2023 1 1 [facility] Healthcare Summary Purpose Family History Unknown Family Member Name Dates Details No pertinent family history: Mother, Father, Sister, Brother(V49.89, Z78.9) Status:Active Unknown Family Member Name Dates Details No pertinent family history: Mother, Father, Sister, Brother(V49.89, Z78.9) Status:Active Relationship Condition Age at Onset Recorded Date/T nasir Not Specified Diabetes mellitus Unknown Hypertension Unknown Advance Directives Advance Directive Response Recorded Date/ Time Advance Directives No October 15 7:09pm Reason for Referral Specialty Diagnoses / Procedures Referred By Sonny peters Referred To Contact Diagnoses Acute pain of right shoulder Procedures MR shoulder right wo IV contrast Shaikh Alvarez MD [address] [place] [address] [facility] [address] [place] [address] Phone: [phone] Referral ID Status Reason Start Date Expiration Date V isits Requested Visits Authorized [id number] Pending Review 06/16/2023 12/13/2023 1 1 Specialty Diagnoses / Procedures Referred By Sonny peters Referred To Contact Physical Therapy Diagnoses Acute pain of right shoulder Procedures ME OFFICE/OUTPATIENT NEW HIGH MDM 60 MINUTES Shaikh Alvarez MD [address] [place] [address] France Reina, PT [address] [facility] [address] [place] [address] Referral ID Status Reason Start Date Expiration Date Visits Requested Visits Authorized [id number] Pending Review Consult and Treat 06/16/2023 12/13/2023 [...] R19.7 abd pain abd pain abd pain RENAL F/U Reason for Visit Abdominal pain Gitelman syndrome Hypokalemia Hypomagnesemia Additional Source Comments (unrecognized sect ion and content) No Status Records FoundNo Status Records FoundNo Status Records FoundNo Status Records FoundNo Status Records FoundNo Status Records Found INFORMATION SOURCE (unrecogn ized section and content) DATE CREATED AUTHOR 10/28/2017 [facility] DATE CREATED AUTHOR AUTHOR'S ORGANIZ ATION 12/05/2021 [employer] DATE CREATED AUTHOR AUTHOR'S ORGANIZ ATION 02/07/2022 [facility] DATE CREATED AUTHOR AUTHOR'S ORGANIZ ATION 06/28/2022 [facility] DATE CREATED AUTHOR AUTHOR'S ORGANIZ ATION 08/05/2023 [facility] EPIC DATE CREATED AUTHOR AUTHOR'S ORGANIZ ATION 09/09/2023 [facility] REASON FOR VISIT (unrecogniz ed section and content) Reason Comments Shoulder Pain RIGHT Care Teams (unrecognized sec tion and content) 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 Relationship Specialty Start Date End Date Shaikh Alvarez MD [address] [place] [address] PCP - General Internal Medicine 06/16/23 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 Relationship Specialty Start Date End Date Shaikh Alvarez MD [address] [place] [address] PCP - General Internal Medicine 06/16/23 Team Status: Active Member Role Status Dates Shaikh Kim MD Primary Care Provider Active Team Status: Inactive Member Role Status Dates Nida Woods APRN UNHAIRING MACHINE OPERATOR-C Primary Care Provider Active Start: July [...] Provider Act pratik Start: September 01, 2023 Team Status: Active Member Role Status Dates Shaikh Kim MD Primary Care Provider Active Start: October 06, 2023 Marcelino Villegas MD Attending Provider Active Start : October 06, 2023 Team Status: Inactive Member Role Status Dates Shaikh Kim MD Primary Care Provider Active Start: October 06, 2023 End: October 06, 2023 Marcelino Villegas MD Attending Provider Active Start : October 06, 2023 End: October 06, 2023 Goals (unrecognized section and content) Goals [...] BE BASED ON THE PRIMARY CLINICAL RECORDS. [employer] provides no warranty or guarantee of the accuracy or completeness of information in this document.
[2023-10-26 11:11] LABS: Hemoglobin 15.4 g/dL (14.0-18.0); Mean Corpuscular HGB Conc 34.2 g/dL (29.9-35.2); Mean Corpuscular Hemoglobin 27.2 pg (25.9-34.0); Mean Corpuscular Volume 79.5 fL (80.0-94.0); Mean Platelet Volume 8.9 fL (9.5-13.5); Platelet Count 376 10^3/uL (150-450); Red Blood Count 5.66 10^6/uL (4.70-6.10); Red Cell Distribution Width 12.7 % (11.0-15.0); White Blood Count 10.5 10^3/uL (4.0-11.0)
[2023-10-26 11:25] LABS: Bilirubin Urine NEGATIVE (NEGATIVE); Blood Urine NEGATIVE (NEGATIVE); Clarity Urine CLEAR (CLEAR); Color Urine LT. YELLOW (YELLOW); Glucose Urine UA NEGATIVE (NEGATIVE); Ketones Urine NEGATIVE (NEGATIVE); Leukocyte Esterase Urine NEGATIVE (NEGATIVE); Nitrite Urine NEGATIVE (NEGATIVE); Protein Urine 100 mg/dL (NEG/TRACE); Specific Gravity Urine >=1.030 (1.005-1.025); Urobilinogen Urine 0.2 EU/dL (0.2-1.0); pH Urine 7.5 (5.0-9.0)
[2023-10-26 11:40] LABS: Albumin Level 3.7 g/dL (3.4-5.0); Anion Gap 12.1; BUN Creatinine Ratio 13.3; Calcium 8.9 mg/dL (8.5-10.1); Carbon Dioxide 31.1 mmol/L (21.0-32.0); Chloride 99 mmol/L (98-107); Estimated GFR (African America >60 (>=60); Estimated GFR (Non-African Ame >60 (>=60); Glucose 105 mg/dL (74-106); Magnesium 1.6 mg/dL (1.8-2.4); Phosphorus 2.8 mg/dL (2.6-4.7); Potassium 3.2 mmol/L (3.5-5.1); Sodium 139 mmol/L (136-145)
[2023-10-26 11:50] LABS: Bacteria Urine TRACE #/HPF (NONE SEEN); Mucus Urine NONE SEEN (NONE SEEN)
[2023-10-26 11:52] LABS: Cast Seen? NONE SEEN #/LPF (NONE SEEN); Crystals Seen? None Seen #/HPF (None Seen); Sperm Urine SEEN; Squamous Epithelial Cell Urine RARE #/LPF (NONE/RARE); WBC Urine 0-2 #/HPF (NONE SEEN)
[2023-10-26 11:53] LABS: Urine Culture Indicated NO
[2023-10-26 13:02] LABS: Creatinine Urine Random 109.34 mg/dL (20.00-300.00)
[2023-10-26 13:59] LABS: Protein Creatinine Ratio Urine 7.39
[2023-10-26 14:02] LABS: Total Protein Urine Random 807.8 mg/dL (<=11.9)
== END 2023-10-26 10:01 | disposition home or self-care (01) ==
LOC: LAB 10:05
PROVIDERS: PCP Internal Medicine; Visit Provider Internal Medicine
DX: E83.42 Hypomagnesemia (principal); E87.6 Hypokalemia
CPT/HCPCS: 36415; 80069; 81001; 82570; 83735; 84156; 85027

== ENCOUNTER 2023-11-19 06:50 | Outpatient (OUT) | payer OTHER, SELFPAY ==
[2023-11-19 07:14] LABS: Bilirubin Urine NEGATIVE (NEGATIVE); Blood Urine TRACE-I (NEGATIVE); Clarity Urine CLEAR (CLEAR); Color Urine YELLOW (YELLOW); Glucose Urine UA NEGATIVE (NEGATIVE); Ketones Urine NEGATIVE (NEGATIVE); Leukocyte Esterase Urine NEGATIVE (NEGATIVE); Nitrite Urine NEGATIVE (NEGATIVE); Protein Urine NEGATIVE (NEG/TRACE); Specific Gravity Urine 1.025 (1.005-1.025); Urobilinogen Urine 0.2 EU/dL (0.2-1.0)
[2023-11-19 07:16] LABS: Creatinine Urine Random 151.16 mg/dL (20.00-300.00); Protein Creatinine Ratio Urine 0.16; Total Protein Urine Random 24.7 mg/dL (<=11.9)
[2023-11-19 08:03] LABS: Bacteria Urine NONE SEEN #/HPF (NONE SEEN); RBC Urine 0-2 #/HPF (0-2); WBC Urine 0-2 #/HPF (NONE SEEN)
[2023-11-19 08:04] LABS: Cast Seen? NONE SEEN #/LPF (NONE SEEN); Crystals Seen? None Seen #/HPF (None Seen); Mucus Urine NONE SEEN (NONE SEEN); Squamous Epithelial Cell Urine RARE #/LPF (NONE/RARE)
[2023-11-21 16:10] LABS: Albumin 3.7 g/dL (2.9-4.4); Alpha-1-Globulin 0.3 g/dL (0.0-0.4); Alpha-2-Globulin 0.9 g/dL (0.4-1.0); Free Kappa Lt Chains,S 14.7 mg/L (3.3-19.4); Free Lambda Lt Chains,S 17.1 mg/L (5.7-26.3); Gamma Globulin 1.3 g/dL (0.4-1.8); Immunoglobulin A, Qn, Serum 276 mg/dL (90-386); Immunoglobulin G, Qn, Serum 1297 mg/dL (603-1613); Immunoglobulin M, Qn, Serum 103 mg/dL (20-172); Kappa/Lambda Ratio,S 0.86 (0.26-1.65); Protein, Total 7.3 g/dL (6.0-8.5)
[2023-11-21 19:07] LABS: Antinuclear Antibodies, IFA Negative (.)
[2023-11-22 21:07] LABS: Anti-MPO Antibodies <0.2 units (0.0-0.9); Anti-PR3 Antibodies <0.2 units (0.0-0.9); Cytoplasmic (C-ANCA) <1:20 titer (Neg:<1:20); Perinuclear (P-ANCA) <1:20 titer (Neg:<1:20)
== END 2023-11-19 06:51 | disposition home or self-care (01) ==
LOC: LAB 06:51
PROVIDERS: PCP Internal Medicine; Visit Provider Internal Medicine
DX: R80.9 Proteinuria, unspecified (principal)
CPT/HCPCS: 36415; 81001; 82570; 82784; 83516; 83521; 84155; 84156; 84165; 84166; 86037; 86038; 86335

== ENCOUNTER 2023-11-21 10:41 | Outpatient (REF) | payer OTHER, SELFPAY ==
[2023-11-21 13:03] LABS: Total Volume 24 Hour Urine 1400 mL/24hr
[2023-11-21 13:11] LABS: Total Protein 24 Hour Urine 284.2 mg/24hr (<=149.1); Total Protein Urine Random 20.3 mg/dL (<=11.9)
== END 2023-11-21 10:42 | disposition home or self-care (01) ==
LOC: LAB 10:41
PROVIDERS: PCP Internal Medicine; Visit Provider Internal Medicine
DX: R80.9 Proteinuria, unspecified (principal)
CPT/HCPCS: 84156

== ENCOUNTER 2024-03-20 08:33 | Outpatient (OUT) | payer OTHER, SELFPAY ==
[2024-03-20 08:53] LABS: Hematocrit 45.8 % (42.0-54.0); Hemoglobin 15.6 g/dL (14.0-18.0); Mean Corpuscular HGB Conc 34.1 g/dL (29.9-35.2); Mean Corpuscular Hemoglobin 27.3 pg (25.9-34.0); Mean Corpuscular Volume 80.2 fL (80.0-94.0); Mean Platelet Volume 8.7 fL (9.5-13.5); Platelet Count 339 10^3/uL (150-450); Red Blood Count 5.71 10^6/uL (4.70-6.10); Red Cell Distribution Width 12.6 % (11.0-15.0); White Blood Count 8.7 10^3/uL (4.0-11.0)
--- OUTSIDE RECORDS SUMMARY | 2024-03-20 08:53 | XMS_ITS | CCD ---
Author Organization [facility] Care Team Providers Care Chemical Packager Name Role Phone OSINOWO, OSIYEMI Unavailable Unavailable OSINOWO, OSIYEMI Unavailable Unavailable NADAUD, ESTUARDO Unavailable Unavailable NADAUD, ESTUARDO Unavailable Unavailable MAVERICK, MARBELLA Unavailable Unavailable MAVERICK, MARBELLA Unavailable Unavailable DAQUAN, GRICEL Unavailable Unavailable DAQUAN, GRICEL Unavailable Unavailable Andra, Marcelino Unavailable Unavailable Unavailable ANDRA, MARCELINO Admitting Unavailable ANDRA, MARCELINO [...] Consulting Unavailable CHUCK, NIDA Primary Care Unavailable MULLEN ., DR HALIMA Martell Admitting Unavailable MULLEN ., DR HALIMA Martell Attending Unavailable MINDY FAN Consulting Unavailable ZAYCYONIEL Consulting Unavailable ANDRA, MARCELINO Admitting Unavailable ANDRA, MARCELINO Attending Unavailable CHUCK, NIDA Primary Care Unavailable Asaad, Imad Unavailable Shaikh Alvarez MD Primary Care Provider MD Elizabeth Imkaren Attending Provider MD Eva Alvarez Primary Care Provider SHAIKH ALVAREZ Attending Unavailable BLACKSTON, FRANCE Peters Attending Unavailable FAWWAD, VELASQUEZ Referring Unavailable BRINK, OSVALDO Attending Unavailable FAWWAD, VELASQUEZ Referring Unavailable BLACKSTON, FRANCE T Attending Unavailable FAWWAD, VELASQUEZ Referring Unavailable BRINK, OSVALDO Attending Unavailable FAWWAD, VELASQUEZ Referring Unavailable BRINK, OSVALDO Attending Unavailable FAWWAD, VELASQUEZ Referring Unavailable BRINK, OSVALDO Attending Unavailable FAWWAD, VELASQUEZ Referring Unavailable BLACKSTON, FRANCE T Attending Unavailable FAWWAD, VELASQUEZ Referring Unavailable BLACKSTON, FRANCE T Attending Unavailable FAWWAD, VELASQUEZ Referring Unavailable KELBLEYJEREMIAH Attending Unavailable FAWWAD, VELASQUEZ Referring Unavailable BRINK, OSVALDO Attending Unavailable FAWWAD, VELASQUEZ Referring Unavailable Asaad, Imad Attending Unavailable Asaad, Imad Admitting Unavailable Fawwad, Velasquez Primary Care Unavailable Asaad, Imad Admitting Unavailable Fawwad, Velasquez Primary Care Unavailable Asaad, Imad Attending Unavailable Asaad, Imad Admitting Unavailable Fawwad, Velasquez Primary Care Unavailable Asaad, Imad Attending Unavailable Chuck PHYSICAL THERAPY TEACHER-C, Nida A Attending Unavailable Chuck PHYSICAL THERAPY TEACHER-C, Nida A Primary Care Unavailable Medications Current Medications Medication Drug Class(es) Dates Sig (Normalized) Sig (Original) aMILoride hydrochloride 5 mg oral tablet (19 sources) Potassium-sparin g Diuretic Start: 07-18-2023 take 10 mg by mouth twice daily Amiloride Active 10 MG PO Twice daily July 18, 2023 12:00am take 2 tablets by mouth in the m orning aMILoride (Midamor) 5 MG tablet Take 10 mg by mouth in the morning and 10 mg before bedtime. 0 Active take 2 tablets by [facility] every twelve hours magnesium chloride 535 mg [...] 12-25-2018 magnesium oxide 400 mg oral capsule (7 sources) Start: 07-18-2023 take 800 mg by mouth twice daily Magnesium Oxide Active 800 MG PO Twice daily July 18, 2023 12:00am Magnesium Oxide 400 MG CAPS TAKE 2 CAPSULE Twice daily Quantity: 0 Refills: 0 Ordered: 02-Dec-2021 DO Active omeprazole 40 mg delayed release oral capsule (4 sources) Proton Pump Inhibitor Start: 09-01-2023 End: 12-01-2023 take 40 mg by mouth once daily Omeprazole Active 40 MG PO Daily December 01, 2023 1:23pm potassium chloride 20 meq extended release oral tablet (19 sources) Start: 07-18-2023 take 6 tablets by mouth twice daily Potassium Chloride Active 0 PO Twice daily July 18, 2023 12:00am 6 tablets orally twice daily; Start: 11-25-2022 potassium chlo ride CR (K-Tab) 20 MEQ ER tablet take 6 tablets by [facility] every twelve hours Potassium Chloride ER 20 MEQ 6 tablets Orally bid for 90 day(s) Active take 6 tablets by [facility] every twelve hours predniSONE 20 mg oral [...] Date Documented Da te Episodic/Chronic Abdominal pain (14 sources) Abdominal pain; Translations: [Unspecified abdominal pain] Onset: 07-23-2023 07-18-2023 Episodic Diseases of white blood cells (16 sources) Leukocytosis; Translations: [Elevated white blood cell count, unspecified] Onset: 03-25-2021 Resolved: 11-11-2021 Chronic Fluid and electrolyte disorders (16 sources) Hypokalemia; Translations: [Hypokalemia] Onset: 03-25-2021 Resolved: 11-11-2021 Episodic Genitourinary symptoms and ill-defined conditions (2 sources) Proteinuria; Translations: [Proteinuria, unspecified] 11-15-2023 Episodic Other diseases of kidney and ureters (5 sources) 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; Translations: [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] Onset: 06-07-2017 Chronic Other gastrointestinal disorders (7 sources) Diarrhea; Translations: [Diarrhea, unspecified] 07-18-2023 Episodic [...] Episodic Other nutritional; endocrine; and metabolic disorders (14 sources) Gitelman syndrome; 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 Other nutritional; endocrine; and metabolic disorders (15 sources) Hypomagnesemia; Translations: [Disorders of magnesium metabolism] Onset: 03-25-2021 Resolved: 11-11-2021 Chronic Other nutritional; endocrine; and metabolic disorders (2 sources) Obesity; Translations: [Obesity, unspecified] Chronic Other nutritional; endocrine; and metabolic disorders (4 sources) Hypomagnesemia; Translations: [Disorders of magnesium metabolism] [...] Episodic Other aftercare (1 source) Other termite treater (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) drug therapy; Translations: [OTH MAINTENANCE SERVICE DISPATCHER CURRENT DRUG THERAPY] Onset: 10-14-2021 Episodic Other [...] Test Name Value Interpretation Reference Range Facility Laboratory - Urinalysison Protein (U) [Mass/Vol] 20.3 mg/dL High <=11.9 [facility] Protein [Mass/time] in 24 ho ur Urineon 11-21-2023 Protein (24H U) [Mass/Time] 284.2 mg/24hr High <=149.1 [facility] Urine volume measurementon 0 11-21-2023 Specimen volume (U) 1400 mL/24hr [facility] Albumin [Mass/volume] in Ser um or Plasmaon 11-19-2023 Albumin [Mass/Vol] 3.7 g/dL 2.9-4.4 [facility] IgA [Mass/volume] in Serum o r Plasmaon 11-19-2023 IgA [Mass/Vol] 276 mg/dL 90-386 [facility] IgG [Mass/volume] in Serum o r Plasmaon 11-19-2023 IgG [Mass/Vol] 1297 mg/dL 603-1613 [facility] IgM [Mass/volume] in Serum o r Plasmaon 11-19-2023 IgM [Mass/Vol] 103 mg/dL 20-172 [facility] Immunofixation for Urineon 0 11-19-2023 Interpretation Immunofixation (U) [Interp] Comment . [facility] Comment on above: No monoclonality det ected.Performed at: - [facility] [id number] Director: Sander Morel PhD, Phone: [phone] Immunoglobulin light chains. kappa.free [Mass/volume] in Serumon 11-19-2023 Immunoglobulin light chains.kappa.free (S) [Mass/Vol] 14.7 mg/L 3.3-19.4 [facility] Immunoglobulin light chains. kappa.free/Immunoglobulin light chains.lambda.free [Debby 11-19-2023 Immunoglobulin light chains.kappa.free/Immun oglobulin light chains.lambda.free (S) [Mass ratio] 0.86 0.26-1.65 [facility] Comment on above: Performed at: [address] [id number] Director: Sander Morel PhD, Phone: [phone] Immunoglobulin light chains. lambda.free [Mass/volume] in Serum or Plasmaon 11-19-2023 Immunoglobulin light chains.lambda.free [Mass/Vol] 17.1 mg/L 5.7-26.3 [facility] Laboratory - Chemistry and C hemistry - challengeon 11-19-2023 Bilirubin Ql (U) Negative NEGATIVE [facility] Glucose (U) [Mass/Vol] Negative NEGATIVE [facility] Ketones Ql (U) Negative NEGATIVE [facility] pH (U) 6.0 [pH] 5.0-9.0 [facility] Specific gravity (U) [Rel density] 1.025 1.005-1.025 [facility] Urobilinogen Qn (U) 0.2 {Felix'U}/dL 0.2-1.0 [facility] Laboratory - Specimen inform ationon 11-19-2023 Appearance (U) CLEAR CLEAR [facility] Color (U) YELLOW YELLOW [facility] Laboratory - Urinalysison Leukocyte esterase Test strip Ql (U) Negative NEGATIVE [facility] Mucus Ql (Urine sed) NONE SEEN NONE SEEN [facility] Nitrite Ql (U) Negative NEGATIVE [facility] Protein (U) [Mass/Vol] 24.7 mg/dL High <=11.9 [facility] Protein Ql (U) Negative NEG/TRACE [facility] Myeloperoxidase Ab [Units/vo lume] in Serum by Immunoassayon 11-19-2023 Myeloperoxidase Ab IA Qn (S) <0.2 units 0.0-0.9 [facility] No Panel Informationon 11-18 Atypical p-ANCA <1:20 titer Neg:<1:20 [facility] Comment on above: The atypical pANCA p attern has been observed in asignificant percentage of patients with ulcerative colitis,primary sclerosing cholangitis and autoimmune hepatitis.Performed at: - [facility] [address] [id number] Director: Ronaldo Luo MD, Phone: [phone] at: - [facility] [address] [place], [place] [id number] Director: Sander Morel PhD, Phone: [phone] Perinuclear ANCA (p-ANCA) Antibody <1:20 titer Neg:<1:20 [facility] Comment on above: The presence of posi tive fluorescence exhibiting P-ANCA orC-ANCA patterns alone is not specific for the diagnosis ofWegener's Granulomatosis (WG) or microscopic polyangiitis.Decisions about treatment should not be based solely onANCA IFA results. The International ANCA Group Consensusrecommends follow up testing of positive sera with both FL-3 and MPO-ANCA enzyme immunoassays. As many as 5% serumsamples are positive only by EIA. Ref. AM J Clin [id number];111:507-513. Protein Electrophoresis M-Jhonatan Not Observed g/dL Not Observed [facility] Protein Electrophoresis Note Comment . [facility] Comment on above: Protein electrophore sis scan will follow via computer,mail, or design/animation instructor delivery. Urine Bacteria NONE SEEN #/HPF NONE SEEN [facility] Urine Occult Blood TRACE-I NEGATIVE [facility] Urine Other Casts NONE SEEN #/LPF NONE SEEN [facility] Urine Other Crystals None Seen #/HPF None Seen [facility] Urine Random Creatinine 151.16 mg/dL 20.0 0-300.0 0 [facility] Urine RBC 0-2 #/HPF 0-2 [facility] Urine Squamous Epithelial Cells RARE #/LPF NONE/RARE [facility] Urine WBC 0-2 #/HPF Abnormal NONE SEEN [facility] Nuclear Ab (S) [Titer]on Anti-Nuclear Antibody Screen Negative . [facility] Comment on above: Negative <1:80 Borde rline 1:80 Positive >1:80ICAP nomenclature: AC-0For more information about Hep-2 cell patterns useANApatterns.org, the official website for theInternational Consensus on Antinuclear Antibody (CRISTEL)Patterns (ICAP).Performed at: [employer] [address] [place], [place] [id number] Director: Sander Morel PhD, Phone: [phone] Negative <1:80 Fausto rodriguez 1:80 Positive >1:80ICAP nomenclature: AC-0For more information about Hep-2 cell patterns useMorningside HospitaldoggylootPug Pharm.Experenti, the official website for theInternational Consensus on Antinuclear Antibody (CRISTEL)Patterns (ICAP).Performed at: [employer] [address] [place], [place] [id number] Director: Sander Morel PhD, Phone: [phone] Protein [Mass/volume] in Ser um or Plasmaon 11-19-2023 Protein [Mass/Vol] 7.3 g/dL 6.0-8.5 [facility] Proteinase 3 Ab [Units/volum e] in Serum by Immunoassayon 11-19-2023 Proteinase 3 Ab IA Qn (S) <0.2 units 0.0-0.9 [facility] Serum classic neutrophil cyt oplasmic antibody titer by immunofluorescenceon 11-19-2023 Neutrophil cytoplasmic Ab.classic IF (S) [Titer] <1:20 titer Neg:<1:20 [facility] Serum globulin measurement ( mass/volume)on 11-19-2023 Globulin (S) [Mass/Vol] 3.6 g/dL 2.2-3.9 [facility] Serum or plasma albumin/glob ulin mass ratioon 11-19-2023 Albumin/Globulin [Mass ratio] 1.1 {ratio} 0.7-1.7 [facility] Serum or plasma alpha 1 glob ulin measurement by electrophoresis (mass/volume)on 11-19-2023 Alpha 1 globulin Elph [Mass/Vol] 0.3 g/dL 0.0-0.4 [facility] Serum or plasma alpha 2 glob ulin measurement by electrophoresis (mass/volume)on 11-19-2023 Alpha 2 globulin Elph [Mass/Vol] 0.9 g/dL 0.4-1.0 [facility] Serum or plasma beta globuli n measurement by electrophoresis (mass/volume)on 11-19-2023 Beta globulin Elph [Mass/Vol] 1.2 g/dL 0.7-1.3 [facility] Serum or plasma gamma globul in measurement by electrophoresis (mass/volume)on 11-19-2023 Gamma globulin Elph [Mass/Vol] 1.3 g/dL 0.4-1.8 [facility] Serum or plasma immunoelectr ophoresis interpretationon 11-19-2023 Interpretation IEP [Interp] Comment . [facility] Comment on above: No monoclonality det ected. Urine protein/creatinine rat ioon 11-19-2023 Protein/Creatinine (U) [Ratio] 0.16 [facility] Erythrocyte distribution wid th Auto (RBC) [Ratio]on 10-26-2023 Erythrocyte distribution width (RBC) [Ratio] 12.7 % 11.0-15.0 [facility] Estimated glomerular filtrat ion rate (GFR) non- Americanon 10-26-2023 GFR/1.73 sq M.predicted among non-blacks MDRD (S/P/Bld) [Vol rate/Area] mL/min/{1.73_m2} >=60 [facility] Hematocrit Auto (Bld) [Volum e fraction]on 10-26-2023 Hematocrit (Bld) [Volume fraction] 45.0 % 42.0-54.0 [facility] Hemoglobin [Mass/volume] in Bloodon 10-26-2023 Hemoglobin (Bld) [Mass/Vol] 15.4 g/dL 14.0-18.0 [facility] Laboratory - Chemistry and C hemistry - challengeon 10-26-2023 Albumin [Mass/Vol] 3.7 g/dL 3.4-5.0 [facility] Calcium [Mass/Vol] 8.9 mg/dL 8.5-10.1 [facility] Chloride [Moles/Vol] 99 mmol/L 98-107 [facility] CO2 [Moles/Vol] 31.1 mmol/L 21.0-32.0 [facility] Creatinine [Mass/Vol] 0.83 mg/dL 0.70-1.30 [facility] GFR/1.73 sq M.predicted MDRD (S/P/Bld) [Vol rate/Area] mL/min/{1.73_m2} >=60 [facility] Glucose [Mass/Vol] 105 mg/dL 74-106 [facility] Magnesium [Mass/Vol] 1.6 mg/dL Low 1.8-2.4 [facility] Potassium [Moles/Vol] 3.2 mmol/L Low 3.5-5.1 [facility] Sodium [Moles/Vol] 139 mmol/L 136-145 [facility] Urea nitrogen [Mass/Vol] 11.0 mg/dL 7.0-18.0 [facility] Urea nitrogen/Creatinine [Mass ratio] 13.3 mg/mg [facility] Bilirubin Ql (U) Negative NEGATIVE [facility] Glucose (U) [Mass/Vol] Negative NEGATIVE [facility] Ketones Ql (U) Negative NEGATIVE [facility] pH (U) 7.5 [pH] 5.0-9.0 [facility] Specific gravity (U) [Rel density] >=1.030 Abnormal 1.005-1.025 [facility] Urobilinogen Qn (U) 0.2 {Felix'U}/dL 0.2-1.0 [facility] Laboratory - Specimen inform ationon 10-26-2023 Appearance (U) CLEAR CLEAR [facility] Color (U) LT. YELLOW YELLOW [facility] Laboratory - Urinalysison Leukocyte esterase Test strip Ql (U) Negative NEGATIVE [facility] Mucus Ql (Urine sed) NONE SEEN NONE SEEN [facility] Nitrite Ql (U) Negative NEGATIVE [facility] Protein (U) [Mass/Vol] 807.8 mg/dL High <=11.9 [facility] Comment on above: UR TP RANDOM DILUTED AND REPEATED FOR VERIFICATION--- 10/26/23 1402 ---Ur TP Random previously reported as: 807.8 H mg/dL Protein Ql (U) 100 mg/dL Abnormal NEG/TRACE [facility] Leukocytes [#/volume] correc augusto for nucleated erythrocytes in Blood by Automated counon 10-26-2023 WBC corrected for nucl RBC Auto (Bld) [#/Vol] 10.5 10 3/uL 4.0-11.0 [facility] MCH Auto (RBC) [Entitic mass ]on 10-26-2023 MCH (RBC) [Entitic mass] 27.2 pg 25.9-34.0 [facility] MCHC Auto (RBC) [Mass/Vol]on 10-26-2023 MCHC (RBC) [Mass/Vol] 34.2 g/dL 29.9-35.2 [facility] MCV Auto (RBC) [Entitic vol] on 10-26-2023 MCV (RBC) [Entitic vol] 79.5 fL Low 80.0-94.0 [facility] No Panel Informationon 10-25 Phosphorus Level 2.8 mg/dL 2.6-4.7 [facility] Urine Bacteria TRACE #/HPF Abnormal NONE SEEN [facility] Urine Culture Reflexed NO [facility] Urine Occult Blood Negative NEGATIVE [facility] Urine Other Casts NONE SEEN #/LPF NONE SEEN [facility] Urine Other Crystals None Seen #/HPF None Seen [facility] Urine Random Creatinine 109.34 mg/dL 20.0 0-300.0 0 [facility] Urine RBC 2-5 #/HPF Abnormal 0-2 [facility] Urine Sperm SEEN [facility] Urine Squamous Epithelial Cells RARE #/LPF NONE/RARE [facility] Urine WBC 0-2 #/HPF Abnormal NONE SEEN [facility] Platelet mean volume Auto (B ld) [Entitic vol]on 10-26-2023 Platelet mean volume (Bld) [Entitic vol] 8.9 fL Low 9.5-13.5 [facility] Platelets Auto (Bld) [#/Vol] on 10-26-2023 Platelets (Bld) [#/Vol] 376 10 3/uL 150-450 [facility] RBC Auto (Bld) [#/Vol]on RBC (Bld) [#/Vol] 5.66 10 6/uL 4.70-6.10 [facility] Serum or plasma anion gap de terminationon 10-26-2023 Anion gap [Moles/Vol] 12.1 mmol/L [facility] Urine protein/creatinine rat ioon 10-26-2023 Protein/Creatinine (U) [Ratio] 7.39 [facility] Erythrocyte distribution wid th Auto (RBC) [Ratio]on 10-06-2023 Erythrocyte distribution width (RBC) [Ratio] 13.1 % 11.0-15.0 [facility] Estimated glomerular filtrat ion rate (GFR) non- Americanon 10-06-2023 GFR/1.73 sq M.predicted among non-blacks MDRD (S/P/Bld) [Vol rate/Area] mL/min/{1.73_m2} >=60 [facility] Hematocrit Auto (Bld) [Volum e fraction]on 10-06-2023 Hematocrit (Bld) [Volume fraction] 46.8 % 42.0-54.0 [facility] Hemoglobin [Mass/volume] in Bloodon 10-06-2023 Hemoglobin (Bld) [Mass/Vol] 15.7 g/dL 14.0-18.0 [facility] Laboratory - Chemistry and C hemistry - challengeon 10-06-2023 Albumin [Mass/Vol] 3.7 g/dL 3.4-5.0 [facility] Calcium [Mass/Vol] 8.9 mg/dL 8.5-10.1 [facility] Chloride [Moles/Vol] 102 mmol/L 98-107 [facility] CO2 [Moles/Vol] 31.8 mmol/L 21.0-32.0 [facility] Creatinine [Mass/Vol] 0.81 mg/dL 0.70-1.30 [facility] GFR/1.73 sq M.predicted MDRD (S/P/Bld) [Vol rate/Area] mL/min/{1.73_m2} >=60 [facility] Glucose [Mass/Vol] 95 mg/dL 74-106 [facility] Magnesium [Mass/Vol] 1.5 mg/dL Low 1.8-2.4 [facility] Potassium [Moles/Vol] 4.3 mmol/L 3.5-5.1 [facility] Sodium [Moles/Vol] 140 mmol/L 136-145 [facility] Urea nitrogen [Mass/Vol] 9.0 mg/dL 7.0-18.0 [facility] Urea nitrogen/Creatinine [Mass ratio] 11.1 mg/mg [facility] Leukocytes [#/volume] correc augusto for nucleated erythrocytes in Blood by Automated counon 10-06-2023 WBC corrected for nucl RBC Auto (Bld) [#/Vol] 6.8 10 3/uL 4.0-11.0 [facility] MCH Auto (RBC) [Entitic mass ]on 10-06-2023 MCH (RBC) [Entitic mass] 27.4 pg 25.9-34.0 [facility] MCHC Auto (RBC) [Mass/Vol]on 10-06-2023 MCHC (RBC) [Mass/Vol] 33.5 g/dL 29.9-35.2 [facility] MCV Auto (RBC) [Entitic vol] on 10-06-2023 MCV (RBC) [Entitic vol] 81.8 fL 80.0-94.0 [facility] No Panel Informationon 10-05 Phosphorus Level 2.3 mg/dL Low 2.6-4.7 [facility] Platelet mean volume Auto (B ld) [Entitic vol]on 10-06-2023 Platelet mean volume (Bld) [Entitic vol] 9.0 fL Low 9.5-13.5 [facility] Platelets Auto (Bld) [#/Vol] on 10-06-2023 Platelets (Bld) [#/Vol] 349 10 3/uL 150-450 [facility] RBC Auto (Bld) [#/Vol]on RBC (Bld) [#/Vol] 5.72 10 6/uL 4.70-6.10 [facility] Serum or plasma anion gap de terminationon 10-06-2023 Anion gap [Moles/Vol] 10.5 mmol/L [facility] Félix 09-01-2023 L Specimen: [id number] Received: 09/02/23 Status: MICHELLE De Guzman Num: [id number] Spec Type: Surgical Subm Dr: Carlos Johnson MD Tissues: A Duodenum - Biopsy (DUODENUM BX) B GASTRIC FOR HP (GASTRIC HP) C Esophagus Biopsy (ESOPHAGEAL BX) Procedures: HE/6, Gross/Micro L4/3, H PYLORI, IHC First AB Age/ Patient Sex Location Account Attending Physician Wood Horn 27/M [id number] Carlos Johnson MD SPEC NUM: [id number] RECD: 09/02/23 STATUS: MICHELLE JESSICA NUM: [id number] ALLEN: 09/01/23- SUBM DR: Carlos Johnson MD ENTERED: 09/02/23 [facility] DR: SPEC TYPE: Surgical DEPT: S ORDERED: [...] cm, entirely submitted in A1. -------- Specimen: [id number] Received: 09/02/23 Status: UDAYMoise De Guzman Num: [id number] Spec Type: Surgical Subm Dr: Carlos Johnson MD Tissues: A Duodenum - Biopsy (DUODENUM BX) B GASTRIC FOR HP (GASTRIC HP) C Esophagus Biopsy (ESOPHAGEAL BX) Procedures: HE/6, Gross/Micro L4/3, H PYLORI, IHC First AB -------- Patient: Wood Horn [id number] (Continued) -------- Specimen: [id number] Received: 09/02/23 (Continued) Gross Description (Continued) Signed (signature on file) Jaylen Caputo MD 09/06/23 164 -------- Specimen: [id number] Received: 09/02/23 Status: MICHELLE De Guzman Num: [id number] Spec Type: Surgical Subm Dr: Carlos Johnson MD Tissues: A Duodenum - Biopsy (DUODENUM BX) B GASTRIC FOR HP (GASTRIC HP) C Esophagus Biopsy (ESOPHAGEAL BX) Procedures: HE/6, Gross/Micro L4/3, H PYLORI, IHC First AB -------- Patient: Wood Horn [id number] (Continued) -------- Specimen: [id number] Received: 09/02/23 (Continued) Gross Description (Continued) B. [...] H. pylori, rule out EOE CPT Codes [id number], [id number] -------- -------- Specimen: [id number] Received: 09/02/23 Status: MICHELLE De Guzman Num: [id number] Spec Type: Surgical Subm Dr: Carlos Johnson MD Tissues: A Duodenum - Biopsy (DUODENUM BX) B GASTRIC FOR HP (GASTRIC HP) C Esophagus Biopsy (ESOPHAGEAL BX) Procedures: HE/6, Gross/Micro L4/3, H PYLORI, IHC First AB -------- Patient: Wood Horn [id number] (Continued) -------- Signed (signature on file) Jaylen Caputo MD 09/06/23 1642 Normal [facility] Magnesium [Mass/volume] in S joon or PlasmaOrdered By: Carlos Johnson on 09-01-2023 Magnesium [Mass/Vol] 1.1 mg/dL 1.9-2.7 [facility] Comment on above: Result Comment: PERF ORMED BY: [place] [id number] PATHOLOGIST PIPE LAYER LIEN TNA M.D. Performed By: #### Stanley Schuster #### [address] Potassium [Moles/volume] in Serum or PlasmaOrdered By: Carlos Johnson on 09-01-2023 Potassium [Moles/Vol] 3.6 mmol/L 3.5-5.1 [facility] Comment on above: Hemolysis is present at a level that could interfere with the result. Result Comment: Hemo lysis is present at a level that could interfere with the result. Performed By: #### M G, K #### [address] Arterial blood standard base excess determination by calculationOrdered By: Imad Asaad on 08-18-2023 Base excess standard Calc (BldA) [Moles/Vol] 9 mmol/L -2-3 [facility] Basophil percentageOrdered B y: Imad Asaad on 08-18-2023 Basophil percentage 46.3 mm[Hg] 35-51 [facility] Basophil percentage 36 mm[Hg] 80-105 [facility] Blood carbon dioxide, total measurement by calculation (moles/volume)Ordered By: Imad Asaad on 08-18-2023 CO2 Calc (Bld) [Moles/Vol] 34 mmol/L 23- [facility] CT biopsyOrdered By: Imad As aad on 08-18-2023 Hematocrit (Bld) [Volume fraction] 49.0 % 38.0-51.0 [facility] Glucose Glucometer (BldC) [M ass/Vol]Ordered By: Imad Asaad on 08-18-2023 Glucose [Mass/Vol] 95 mg/dL 70-105 [facility] Hemoglobin Calc (Bld) [Mass/ Vol]Ordered By: Imad Asaad on 08-18-2023 Hemoglobin (Bld) [Mass/Vol] 16.7 g/dL 12.0-17.0 [facility] ISTAT ABGon 08-18-2023 CO2 [Moles/Vol] 34 mmol/L High - [facility] Comment on above: Performed By: #### I SABG #### [place] [id number] [facility] [[email or web address]] Glucose [Mass/Vol] 95 mg/dL Normal 70-105 [facility] Comment on above: Result Comment: PERF ORMED BY: [place] [address] PATHOLOGIST PIPE LAYER LIEN TAN M.D. Performed By: #### I SABG #### [address] HCO3 (Bld) [Moles/Vol] 32.9 mmol/L High 22.0-28.0 [facility] Comment on above: Performed By: #### I SABG #### [address] Hematocrit (Bld) [Volume fraction] 49.0 % Normal 38.0-51.0 [facility] Comment on above: Performed By: #### I SABG #### [address] Hemoglobin (Bld) [Mass/Vol] 16.7 g/dL Normal 12.0-17.0 [facility] Comment on above: Performed By: #### I SABG #### [address] ISTAT Base Excess 9 mmol/L High -2 TO 3 [facility] Comment on above: Performed By: #### I SABG #### [address] ISTAT Ionized Calcium 1.14 mol/L Normal 1.12-1.32 [facility] Comment on above: Performed By: #### I SABG #### [address] ISTAT PCO2 46.3 mm[Hg] Normal 35-51 [facility] Comment on above: Performed By: #### I SABG #### [address] ISTAT Ph 7.460 High 7.31-7.45 [facility] Comment on above: Performed By: #### I SABG #### [address] ISTAT PO2 36 mm[Hg] Low 80-105 [facility] Comment on above: Performed By: #### I SABG #### [facility] [address] [place] [address] [place] Oxygen saturation in Blood 72 % Low 95-98 [facility] Comment on above: Result Comment: Refe rence ranges reflect baseline specimens only Performed By: #### I SABG #### [facility] [address] Potassium [Moles/Vol] 2.5 mmol/L Off scale low 3.5-4.9 [facility] Comment on above: Performed By: #### I SABG #### [facility] [address] Sodium [Moles/Vol] 139 mmol/L Normal 138-146 [facility] Comment on above: Performed By: #### I SABG #### [facility] [address] [place] [address] [place] Potassium (Bld) [Moles/Vol]O rdered By: Imad Asaad on 08-18-2023 Potassium [Moles/Vol] 2.5 mmol/L 3.5-4.9 [facility] Sodium (Bld) [Moles/Vol]Orde red By: Imad Asaad on 08-18-2023 Sodium [Moles/Vol] 139 mmol/L 138-146 [facility] Whole blood bicarbonate ryan urementOrdered By: Imad Asaad on 08-18-2023 HCO3 (Bld) [Moles/Vol] 32.9 mmol/L 22.0-28.0 [facility] Whole blood ionized calcium measurement (moles/volume)Ordered By: Imad Asaad on 08-18-2023 Calcium.ionized (Bld) [Moles/Vol] 1140 mmol/L 1.12-1.32 [facility] Whole blood oxygen saturatio n measurementOrdered By: Imad Asaad on 08-18-2023 Oxygen saturation in Blood 72 % 95-98 [facility] Comment on above: Reference ranges ref lect baseline specimens only Whole blood pHOrdered By: Im ad Asaad on 08-18-2023 pH (Bld) 7.460 Units 7.31-7.45 [facility] Alanine aminotransferase [En zymatic activity/volume] in Serum or PlasmaOrdered By: Imad Asaad on 07-23-2023 ALT [Catalytic activity/Vol] 30 U/L 7-52 [facility] Albumin [Mass/volume] in Ser um or Plasma by Bromocresol green (BCG) dye binding methoOrdered By: Imad Asaad on 07-23-2023 Albumin BCG dye [Mass/Vol] 4.4 g/dL 3.5-5.7 [facility] Alkaline phosphatase [Enzyma tic activity/volume] in Serum or PlasmaOrdered By: Imad Asaad on 07-23-2023 ALP [Catalytic activity/Vol] 87 U/L 34-104 [facility] Aspartate aminotransferase [ Enzymatic activity/volume] in Serum or PlasmaOrdered By: Imad Asaad on 07-23-2023 AST [Catalytic activity/Vol] 25 U/L 13-39 [facility] Basophils Auto (Bld) [#/Vol] Ordered By: Imad Asaad on 07-23-2023 Basophils (Bld) [#/Vol] 0.1 10*3/uL 0.0-0.2 [facility] Basophils/100 WBC Auto (Bld) Ordered By: Imad Asaad on 07-23-2023 Basophils/100 WBC (Bld) 0.7 % . [facility] Bilirubin.total [Mass/volume ] in Serum or PlasmaOrdered By: Imad Asaad on 07-23-2023 Bilirubin [Mass/Vol] 0.7 mg/dL 0.3-1.0 [facility] Calcium [Mass/volume] in Ser um or PlasmaOrdered By: Imad Asaad on 07-23-2023 Calcium [Mass/Vol] 9.2 mg/dL 8.6-10.3 [facility] Carbon dioxide, total [Moles /volume] in Serum or PlasmaOrdered By: Imad Asaad on 07-23-2023 CO2 [Moles/Vol] 34.0 mmol/L 21.0-31.0 [facility] Chloride [Moles/volume] in S joon or PlasmaOrdered By: Imad Asaad on 07-23-2023 Chloride [Moles/Vol] 98 mmol/L 98-107 [facility] Complete Blood Count Auto Di ffon 07-23-2023 Basophils (Bld) [#/Vol] 0.1 10*3/uL Normal 0.0-0.2 [facility] Comment on above: Result Comment: PERF ORMED BY: [place] [address] PATHOLOGIST PIPE LAYER LIEN TAN M.D. Performed By: #### C MP, CBC, LIPASE #### [address] Basophils/100 WBC (Bld) 0.7 % Normal . T [facility] Comment on above: Performed By: #### C MP, CBC, LIPASE #### [address] Eosinophils (Bld) [#/Vol] 0.4 10*3/uL Normal 0.0-0.45 [facility] Comment on above: Performed By: #### C MP, CBC, LIPASE #### [address] Eosinophils/100 WBC (Bld) 4.2 % Normal . [facility] Comment on above: Performed By: #### C MP, CBC, LIPASE #### [address] Erythrocyte distribution width (RBC) [Ratio] 14.0 % Normal 12.0-14.8 [facility] Comment on above: Performed By: #### C MP, CBC, LIPASE #### [address] Hematocrit (Bld) [Volume fraction] 43.7 % Normal 38.8-50.0 [facility] Comment on above: Performed By: #### C MP, CBC, LIPASE #### [address] Hemoglobin (Bld) [Mass/Vol] 15.1 g/dL Normal 13.0-17.0 [facility] Comment on above: Performed By: #### C MP, CBC, LIPASE #### [address] Lymphocytes (Bld) [#/Vol] 2.2 10*3/uL Normal 1.00-4.8 [facility] Comment on above: Performed By: #### C MP, CBC, LIPASE #### [address] Lymphocytes/100 WBC (Bld) 24.3 % Normal . [facility] Comment on above: Performed By: #### C MP, CBC, LIPASE #### [address] MCH (RBC) [Entitic mass] 27.7 pg Normal 27.5-35.2 [facility] Comment on above: Performed By: #### C MP, CBC, LIPASE #### [address] MCV (RBC) [Entitic vol] 80.1 fL Low 83.5-101 [facility] Comment on above: Performed By: #### C MP, CBC, LIPASE #### [address] Mean Corpuscular HGB Conc 34.6 g/dL Normal 32.5-35.6 [facility] Comment on above: Performed By: #### C MP, CBC, LIPASE #### [address] Monocytes (Bld) [#/Vol] 0.6 10*3/uL Normal 0.0-0.8 [facility] Comment on above: Performed By: #### C MP, CBC, LIPASE #### [address] Monocytes/100 WBC (Bld) 6.9 % Normal . [facility] Comment on above: Performed By: #### C MP, CBC, LIPASE #### [address] Neutrophils (Bld) [#/Vol] 5.8 10*3/uL Normal 1.8-7.7 [facility] Comment on above: Performed By: #### C MP, CBC, LIPASE #### [address] Neutrophils/100 WBC (Bld) 63.9 % Normal . [facility] Comment on above: Performed By: #### C MP, CBC, LIPASE #### [address] NRBC% 0.0 /100{WBC} Normal 0-0.5 [facility] Comment on above: Performed By: #### C MP, CBC, LIPASE #### [address] Platelet mean volume (Bld) [Entitic vol] 7.2 fL Normal 6.6-10.1 [facility] Comment on above: Performed By: #### C MP, CBC, LIPASE #### [address] Platelets (Bld) [#/Vol] 353 10*3/uL Normal 150-450 [facility] Comment on above: Performed By: #### C MP, CBC, LIPASE #### [address] RBC (Bld) [#/Vol] 5.46 10*6/uL Normal 3.90-5.60 [facility] Comment on above: Performed By: #### C MP, CBC, LIPASE #### [address] WBC (Bld) [#/Vol] 9.0 10*3/uL Normal 4.1-10.5 [facility] Comment on above: Performed By: #### C MP, CBC, LIPASE #### [address] Comprehensive Metabolic Pane félix 07-23-2023 Albumin [Mass/Vol] 4.4 g/dL Normal 3.5-5.7 [facility] Comment on above: Performed By: #### C MP, CBC, LIPASE #### [address] Albumin/Globulin [Mass ratio] 1.5 {ratio} Normal [facility] Comment on above: Performed By: #### C MP, CBC, LIPASE #### [address] ALP [Catalytic activity/Vol] 87 U/L Normal 34-104 [facility] Comment on above: Performed By: #### C MP, CBC, LIPASE #### [address] ALT [Catalytic activity/Vol] 30 U/L Normal 7-52 [facility] Comment on above: Performed By: #### C MP, CBC, LIPASE #### [address] Anion gap [Moles/Vol] 11.8 mmol/L Normal 6.0-15.0 [facility] Comment on above: Performed By: #### C MP, CBC, LIPASE #### [address] AST [Catalytic activity/Vol] 25 U/L Normal 13-39 [facility] Comment on above: Performed By: #### C MP, CBC, LIPASE #### [address] Bilirubin [Mass/Vol] 0.7 mg/dL Normal 0.3-1.0 [facility] Comment on above: Performed By: #### C MP, CBC, LIPASE #### [place] [address] [place] Calcium [Mass/Vol] 9.2 mg/dL Normal 8.6-10.3 [facility] Comment on above: Performed By: #### C MP, CBC, LIPASE #### [place] [address] [place] Chloride [Moles/Vol] 98 mmol/L Normal 98-107 [facility] Comment on above: Performed By: #### C MP, CBC, LIPASE #### [place] [address] [place] CO2 [Moles/Vol] 34.0 mmol/L High 21.0-31.0 [facility] Comment on above: Performed By: #### C MP, CBC, LIPASE #### [address] Creatinine [Mass/Vol] 0.73 mg/dL Normal 0.70-1.30 [facility] Comment on above: Performed By: #### C MP, CBC, LIPASE #### [place] [address] [place] GFR/1.73 sq M.predicted MDRD (S/P/Bld) [Vol rate/Area] mL/min/{1.73_m2} Normal [facility] Comment on above: Performed By: #### C MP, CBC, LIPASE #### [address] Globulin (S) [Mass/Vol] 2.9 g/dL Normal T he [facility] Comment on above: Performed By: #### C MP, CBC, LIPASE #### [address] Glucose [Mass/Vol] 92 mg/dL Normal 70-100 [facility] Comment on above: Result Comment: [facility] Glucose Reference Range is dependent on time and content of last meal. Glucose of more than 200 mg/dL in a nonstressed, ambulatory subject supports the diagnosis of Diabetes Mellitus. ADA recommended reference range Performed By: #### C MP, CBC, LIPASE #### [address] Potassium [Moles/Vol] 2.8 mmol/L Off scale low 3.5-5.1 [facility] Comment on above: Result Comment: Crit ical Result Called to and read back by: HALIMA CHAVEZ at: 07/23/2023 11:41:15 by:[id number] Performed By: #### C MP, CBC, LIPASE #### [address] Protein [Mass/Vol] 7.3 g/dL Normal 6.4-8.9 [facility] Comment on above: Performed By: #### C MP, CBC, LIPASE #### [facility] [address] Sodium [Moles/Vol] 141 mmol/L Normal 136-145 [facility] Comment on above: Performed By: #### C MP, CBC, LIPASE #### [facility] [address] Urea nitrogen [Mass/Vol] 13 mg/dL Normal 7-25 [facility] Comment on above: Performed By: #### C MP, CBC, LIPASE #### [facility] [address] [place] [id number] [facility] [[email or web address]] Creatinine [Mass/volume] in Serum or PlasmaOrdered By: Imad Asaad on 07-23-2023 Creatinine [Mass/Vol] 0.73 mg/dL 0.70-1.30 [facility] Eosinophils Auto (Bld) [#/Vo l]Ordered By: Imad Asaad on 07-23-2023 Eosinophils (Bld) [#/Vol] 0.4 10*3/uL 0.0-0.45 [facility] Eosinophils/100 WBC Auto (Bl d)Ordered By: Imad Asaad on 07-23-2023 Eosinophils/100 WBC (Bld) 4.2 % . [facility] Erythrocyte distribution wid th Auto (RBC) [Ratio]Ordered By: Imad Asaad on 07-23-2023 Erythrocyte distribution width (RBC) [Ratio] 14.0 % 12.0-14.8 [facility] Globulin Calc (S) [Mass/Vol] Ordered By: Imad Asaad on 07-23-2023 Globulin (S) [Mass/Vol] 2.9 g/dL [facility] Glucose [Mass/volume] in Ser um or PlasmaOrdered By: Imad Asaad on 07-23-2023 Glucose [Mass/Vol] 92 mg/dL 70-100 [facility] Comment on above: ADA recommended refe rence rangeRandom Glucose Reference Range is dependent on time and content of last meal. Glucose of more than 200 mg/dL in a nonstressed, ambulatory subject supports the diagnosis of Diabetes Mellitus. Hematocrit Auto (Bld) [Volum e fraction]Ordered By: Imad Asaad on 07-23-2023 Hematocrit (Bld) [Volume fraction] 43.7 % 38.8-50.0 [facility] Hemoglobin [Mass/volume] in BloodOrdered By: Imad Asaad on 07-23-2023 Hemoglobin (Bld) [Mass/Vol] 15.1 g/dL 13.0-17.0 [facility] Leukocytes [#/volume] correc augusto for nucleated erythrocytes in Blood by Automated counOrdered By: Imad Asaad on 07-23-2023 WBC corrected for nucl RBC Auto (Bld) [#/Vol] 9.0 10*3/uL 4.1-10.5 [facility] Lipaseon 07-23-2023 Lipase [Catalytic activity/Vol] 39.0 U/L Normal 11.0-82.0 [facility] Comment on above: Result Comment: PERF ORMED BY: [place] [address] PATHOLOGIST PIPE LAYER LIEN TAN M.D. Performed By: #### C MP, CBC, LIPASE #### [address] Lipase [Enzymatic activity/v olume] in Serum or PlasmaOrdered By: Imad Asaad on 07-23-2023 Lipase [Catalytic activity/Vol] 39.0 U/L 11.0-82.0 [facility] Lymphocytes Auto (Bld) [#/Vo l]Ordered By: Imad Asaad on 07-23-2023 Lymphocytes (Bld) [#/Vol] 2.2 10*3/uL 1.00-4.8 [facility] Lymphocytes/100 WBC Auto (Bl d)Ordered By: Imad Asaad on 07-23-2023 Lymphocytes/100 WBC (Bld) 24.3 % . [facility] MCH Auto (RBC) [Entitic mass ]Ordered By: Imad Asaad on 07-23-2023 MCH (RBC) [Entitic mass] 27.7 pg 27.5-35.2 [facility] MCHC Auto (RBC) [Mass/Vol]Or dered By: Imad Asaad on 07-23-2023 MCHC (RBC) [Mass/Vol] 34.6 g/dL 32.5-35.6 [facility] MCV Auto (RBC) [Entitic vol] Ordered By: Imad Asaad on 07-23-2023 MCV (RBC) [Entitic vol] 80.1 fL 83.5-101 [facility] Monocytes Auto (Bld) [#/Vol] Ordered By: Imad Asaad on 07-23-2023 Monocytes (Bld) [#/Vol] 0.6 10*3/uL 0.0-0.8 [facility] Monocytes/100 WBC Auto (Bld) Ordered By: Imad Asaad on 07-23-2023 Monocytes/100 WBC (Bld) 6.9 % . [facility] Neutrophils Auto (Bld) [#/Vo l]Ordered By: Imad Asaad on 07-23-2023 Neutrophils (Bld) [#/Vol] 5.8 10*3/uL 1.8-7.7 [facility] Neutrophils/100 WBC Auto (Bl d)Ordered By: Imad Asaad on 07-23-2023 Neutrophils/100 WBC (Bld) 63.9 % . [facility] No Panel InformationOrdered By: Imad Asaad on 07-23-2023 Estimated GFR (CKD-EPI) > 60.0 mL/Min [facility] Creatinine Clearance (Chem N/A [facility] Nucleated erythrocytes [Pres ence] in Blood by Automated countOrdered By: Imad Asaad on 07-23-2023 Nucleated RBC Auto Ql (Bld) 0.0 /100{WBC} 0-0.5 [facility] Platelet mean volume Auto (B ld) [Entitic vol]Ordered By: Imad Asaad on 07-23-2023 Platelet mean volume (Bld) [Entitic vol] 7.2 fL 6.6-10.1 [facility] Platelets Auto (Bld) [#/Vol] Ordered By: Imad Asaad on 07-23-2023 Platelets (Bld) [#/Vol] 353 10*3/uL 150-450 [facility] Potassium [Moles/volume] in Serum or PlasmaOrdered By: Imad Asaad on 07-23-2023 Potassium [Moles/Vol] 2.8 mmol/L 3.5-5.1 [facility] Comment on above: Critical Result Call ed to and read back by: HALIMA CHAVEZ at: 07/23/2023 11:41:15 by:[id number] Protein [Mass/volume] in Ser um or PlasmaOrdered By: Imad Asaad on 07-23-2023 Protein [Mass/Vol] 7.3 g/dL 6.4-8.9 [facility] RBC Auto (Bld) [#/Vol]Ordere d By: Imad Asaad on 07-23-2023 RBC (Bld) [#/Vol] 5.46 10*6/uL 3.90-5.60 [facility] Serum or plasma albumin/glob ulin mass ratioOrdered By: Imad Asaad on 07-23-2023 Albumin/Globulin [Mass ratio] 1.5 {ratio} [facility] Serum or plasma anion gap de terminationOrdered By: Imad Asaad on 07-23-2023 Anion gap [Moles/Vol] 11.8 mmol/L 6.0-15.0 [facility] Sodium [Moles/volume] in Ser um or PlasmaOrdered By: Imad Asaad on 07-23-2023 Sodium [Moles/Vol] 141 mmol/L 136-145 [facility] US abdomen completeon 2023 US abdomen complete [facility] [address] Ultrasound Report Signed Patient: Wood Horn MR#: [id number] : 1995 Acct:[id number] Age/Sex: 27 / M ADM Date: 07/23/23 Loc: UL Room: Type: [facility] Attending Dr: Carlos Johnson MD Ordering Provider: [...] Estuardo Saravia M.D.07/23/2023 10:53 AM Dictation Location: [place] [address] Tech: Marlee Funez Transcribed By: [place] 07/23/23 1053 Dictated By: Estuardo Saravia II, MD 07/23/23 1047 Signed By: 07/23/23 1053 Normal [facility] Urea nitrogen [Mass/volume] in Serum or PlasmaOrdered By: [place] Johnson on 07-23-2023 Urea nitrogen [Mass/Vol] 13 mg/dL 7-25 [facility] WBC Auto (Bld) [#/Vol]Ordere d By: Carlos Johnson on 07-23-2023 WBC (Bld) [#/Vol] 9.0 10*3/uL 4.1-10.5 [facility] Magnesiumon 11-25-2022 Magnesium [Mass/Vol] 1.1 mg/dL [facility] Other Renal Function Panelon 11-25 Albumin [Mass/Vol] 3.9 g/dL [facility] Other Calcium [Mass/Vol] 8.8 mg/dL [facility] Other Chloride [Moles/Vol] 96 mmol/L [facility] Other CO2 [Moles/Vol] 32.9 mmol/L [facility] Other Creatinine [Mass/Vol] 0.83 mg/dL [facility] Other Glucose [Mass/Vol] 138 mg/dL [facility] Other Phosphate [Mass/Vol] 4.0 mg/dL [facility] Other Potassium [Moles/Vol] 2.4 mmol/L [facility] Other Sodium [Moles/Vol] 139 mmol/L [facility] Other Urea nitrogen [Mass/Vol] 13.0 mg/dL [facility] Other Renal Function Panel [facility] Other Renal Function Panel >60 [facility] Other GLYCOHEMOGLOBIN A1Con 2022 ADA RECOMMENDATION SEE BELOW Normal [facility] Comment on above: Result Comment: ADA RECOMMENDED LIMIT 4.0 - 6.0 ADA THERAPEUTIC TARGET < 7.0 ACTION SUGGESTED > 7.0 Performed By: #### A 1C #### [facility] [address] [place] [address] [address] Jossue Centeno Glucose [Mass/Vol] 108 mg/dL Normal [facility] Comment on above: Performed By: #### A 1C #### [facility] [address] [place] [address] Dr. Jossue Centeno HbA1c (Bld) [Mass fraction] 5.4 % Normal 4.5-6.[address] [facility] Comment on above: Performed By: #### A 1C #### [facility] [address] [place] [address] Dr. Jossue Centeno CBC AUTO DIFFon 01-27-2022 BASO # 0.1 103/ul Normal 0.0-0.[address] [facility] Comment on above: Performed By: #### C BC #### [facility] [address] [place] [address] Dr. Jossue Centeno Basophils/100 WBC (Bld) 0.8 % Normal 0.2-2.0 [facility] Comment on above: Performed By: #### C BC #### [facility] [address] [place] [address] Dr. Jossue Centeno EO # 0.6 103/ul Normal 0.0-0.[address] [facility] Comment on above: Performed By: #### C BC #### [facility] [address] [place] [address] Dr. Jossue Centeno Eosinophils/100 WBC (Bld) 5.8 % Normal 0.9-7.[address] [facility] Comment on above: Performed By: #### C BC #### [facility] [address] [place] [address] Dr. Jossue Centeno Erythrocyte distribution width (RBC) [Ratio] 12.4 % Normal 11.0-15.[address] [facility] Comment on above: Performed By: #### C BC #### [facility] [address] [place] [address] Dr. Jossue Centeno Hematocrit (Bld) [Volume fraction] 47.4 % Normal 42.0-54.[address] [facility] Comment on above: Performed By: #### C BC #### [facility] [address] [place] [address] Dr. Jossue Centeno Hemoglobin (Bld) [Mass/Vol] 16.7 g/dL Normal 14.0-18.[address] [facility] Comment on above: Performed By: #### C BC #### [facility] [address] [place] [address] Dr. Jossue Centeno IG # 0.02 10e3/ul Normal 0.00-0.[address] [facility] Comment on above: Performed By: #### C BC #### [facility] [address] [place] [address] Dr. Jossue Centeno IG % 0.2 % Normal 0.0-0.[address] [facility] Comment on above: Performed By: #### C BC #### [facility] [address] [place] [address] Dr. Jossue Centeno LYMPH # 2.2 103/ul Normal 1.2-3.[address] [facility] Comment on above: Performed By: #### C BC #### [facility] [address] [place] [address] Dr. Jossue Centeno Lymphocytes/100 WBC (Bld) 23.1 % Normal 20.5-60.[address] [facility] Comment on above: Performed By: #### C BC #### [facility] [address] [place] [address] Dr. Jossue Centeno MANUAL DIFF REQ NO Normal [facility] Comment on above: Performed By: #### C BC #### [facility] [address] [place] [address] Dr. Jossue Centeno MCH (RBC) [Entitic mass] 28.2 pg Normal 25.9-34.[address] [facility] Comment on above: Performed By: #### C BC #### [facility] [address] [place] [address] Dr. Jossue Centeno MCHC (RBC) [Mass/Vol] 35.2 g/dL Normal 29.9-35.2 [facility] Comment on above: Performed By: #### C BC #### [facility] [address] [place] [address] Dr. Jossue Centeno MCV (RBC) [Entitic vol] 79.9 fL Critically low 80.0-94. [address] [facility] Comment on above: Performed By: #### C BC #### [facility] [address] [place] [address] Dr. Jossue Centeno MONO # 0.7 103/ul Normal 0.3-0.[address] [facility] Comment on above: Performed By: #### C BC #### [facility] [address] [place] [address] Dr. Jossue Centeno Monocytes/100 WBC (Bld) 7.6 % Normal 1.7-12.0 [facility] Comment on above: Performed By: #### C BC #### [facility] [address] [place] [address] Dr. Jossue Centeno NEUT # 5.9 103/ul Normal 1.4-6.[address] [facility] Comment on above: Performed By: #### C BC #### [facility] [address] [place] [address] Dr. Jossue Centeno Neutrophils/100 WBC (Bld) 62.5 % Normal 43.0-75.[address] [facility] Comment on above: Performed By: #### C BC #### [facility] [address] [place] [address] Dr. Jossue Centeno Platelet mean volume (Bld) [Entitic vol] 8.5 fL Critically low 9.5-13.[address] [facility] Comment on above: Performed By: #### C BC #### [facility] [address] [place] [address] Dr. Jossue Centeno PLT 335 103/ul Normal 150-450 [facility] Comment on above: Performed By: #### C BC #### [facility] [address] [place] [address] Dr. Jossue Centeno RBC 5.93 106/ul Normal 4.70-6.[address] [facility] Comment on above: Performed By: #### C BC #### [facility] [address] [place] [address] Dr. Jossue Centeno WBC 9.5 103/ul Normal 4.0-11.[address] [facility] Comment on above: Performed By: #### C BC #### [facility] [address] [place] [address] Dr. Jossue Centeno MAGNESIUMon 01-27-2022 Magnesium [Mass/Vol] 1.5 mg/dL Critically low 1.8-2.[address] [facility] Comment on above: Performed By: #### K #### [facility] [address] [place] [address] Dr. Jossue Centeno PROF 14(COMP METB)on 022 Albumin [Mass/Vol] 4.1 g/dL Normal 3.4-5.0 [facility] Comment on above: Performed By: #### M G, CMP #### [facility] [address] [place] [address] Dr. Jossue Centeno Albumin/Globulin [Mass ratio] 1.0 {ratio} Normal [facility] Comment on above: Performed By: #### M G, CMP #### [facility] [address] [place] [address] Dr. Jossue Centeno ALP [Catalytic activity/Vol] 107 U/L Normal 46-[address] [facility] Comment on above: Performed By: #### M G, CMP #### [facility] [address] [place] [address] Dr. Jossue Centeno ALT [Catalytic activity/Vol] 50 U/L Normal 16-[address] [facility] Comment on above: Performed By: #### M G, CMP #### [facility] [address] [place] [address] Dr. Jossue Centeno Anion gap [Moles/Vol] 12.1 mmol/L Normal [facility] Comment on above: Performed By: #### M G, CMP #### [facility] [address] [place] [address] Dr. Jossue Centeno AST [Catalytic activity/Vol] 25 U/L Normal 15-[address] [facility] Comment on above: Performed By: #### M G, CMP #### [facility] [address] [place] [address] Dr. Jossue Centeno Bilirubin [Mass/Vol] 0.6 mg/dL Normal 0.2-1.[address] [facility] Comment on above: Performed By: #### M G, CMP #### [facility] [address] [address] [address] Jossue Centeno Calcium [Mass/Vol] 9.3 mg/dL Normal 8.5-10.1 [facility] Comment on above: Performed By: #### M G, CMP #### [facility] [address] [address] [address] Jossue Centeno Chloride [Moles/Vol] 97 mmol/L Critically low 98-[address] [facility] Comment on above: Performed By: #### M G, CMP #### [facility] [address] [address] [address] Jossue Centeno CO2 [Moles/Vol] 32.1 mmol/L Critically high 21.0-32.[address] [facility] Comment on above: Performed By: #### M G, CMP #### [facility] [address] [place] [address] Dr. Jossue Centeno Creatinine [Mass/Vol] 0.76 mg/dL Normal 0.70-1.[address] [facility] Comment on above: Performed By: #### M G, CMP #### [facility] [address] [place] [address] Dr. Jossue Centeno EGFR-AF LAO >60 Normal >=60 [facility] Comment on above: Performed By: #### M G, CMP #### [facility] [address] [place] [address] Dr. Jossue Centeno EGFR-NON AF LAO >60 Normal >=[address] [facility] Comment on above: Performed By: #### M G, CMP #### [facility] [address] [place] [address] Dr. Jossue Centeno Globulin (S) [Mass/Vol] 4.1 g/dL Normal [facility] Comment on above: Performed By: #### M G, CMP #### [facility] [address] [place] [address] Dr. Jossue Centeno Glucose [Mass/Vol] 92 mg/dL Normal 74-106 [facility] Comment on above: Performed By: #### M G, CMP #### [facility] [address] [address] [address] Jossue Centeno Potassium [Moles/Vol] 3.2 mmol/L Critically low 3.5-5.[address] [facility] Comment on above: Performed By: #### M G, CMP #### [facility] [address] [address] [address] Jossue Centeno Protein [Mass/Vol] 8.2 g/dL Normal 6.4-8.2 [facility] Comment on above: Performed By: #### M G, CMP #### [facility] [address] [address] [address] Jossue Centeno Sodium [Moles/Vol] 138 mmol/L Normal 136-145 [facility] Comment on above: Performed By: #### M G, CMP #### [facility] [address] [place] [address] Dr. Jossue Centeno Urea nitrogen [Mass/Vol] 11.0 mg/dL Normal 7.0-18.[address] [facility] Comment on above: Performed By: #### M G, CMP #### [facility] [address] [place] [address] Dr. Jossue Centeno Urea nitrogen/Creatinine [Mass ratio] 14.5 mg/mg Normal [facility] Comment on above: Performed By: #### M G, CMP #### [facility] [address] [place] [address] Dr. Jossue Centeno Office Visit (Cardiology)on 12-02-2021 Follow-up visit Diagnoses/Problems Assessed Atypical chest pain (786.59) (R07.89) Cardiac enzymes elevated (790.5) (R74.8) Hypokalemia (276.8) (E87.6) Hypomagnesemia (275.2) (E83.42) Class 1 obesity with body mass index (BMI) of 31.0 to 31.9 in adult (278.00,V85.31) (E66.9,Z68.31) Never a smoker Orders Atypical chest pain Echocardiogram; Status:Hold For - Scheduling,Retrospect pratik Authorization; Requested for:[id number]; Atypical chest pain, Cardiac enzymes elevated, Hypokalemia, Hypomagnesemia Cardiac Stress Test; Status:Hold For - Scheduling,Retrospect pratik Authorization; Requested for:[id number]; Class 1 obesity with body mass index (BMI) of 31.0 to 31.9 in adult Healthy Weight Tips; Status:Complete - Retrospective Authorization; Done: [id number] SocHx: Never a smoker Tobacco Use Screening; Status:Complete; Done: [id number] Tobacco Use Screening; Status:Complete; Done: [id number] Tobacco Use Screening; Status:Complete; Done: [id number] Patient Instructions By signing my name below, [...] negative for complaint. Vitals Vital Signs Recorded: [id number] 09:05AMRecorded: [id number] 09:04AM Erfovube313, LUE, [id number], RUE, Sitting [id number], LUE, Wukosjs34, RUE, Sitting Heart Rate66, Apical Height5 ft 10 in [id number] lb BMI Bucciclapj62.14 kg/m2 BSA Calculated2.16 Tobacco Useb) No PHQ-2 [...] 2+ bilate (more content not included)... Normal [employer] Tobacco Screening.on 022 Adult depression screening assessment No [facility] Work Phone: Fall risk assessment c) Not medically indicated [facility] Work Phone: Tobacco use status [facility] b) No [facility] Work Phone: POTASSIUMon 11-16-2021 Potassium [Moles/Vol] 3.8 mmol/L Normal 3.5-5.[address] [facility] Comment on above: Performed By: #### K #### [facility] [address] [place] [address] Dr. Jossue Centeno POTASSIUMon 11-12-2021 Potassium [Moles/Vol] 3.7 mmol/L Normal 3.5-5.[address] [facility] Comment on above: Performed By: #### K #### [facility] [address] [place] [address] Dr. Jossue Centeno HEMOGRAM AND PLATELon 2021 Hematocrit (Bld) [Volume fraction] 45.0 % Normal 42.0-54.[address] [facility] Comment on above: Performed By: #### H H #### [facility] [address] [place] [address] Dr. Jossue Centeno Hemoglobin (Bld) [Mass/Vol] 15.1 g/dL Normal 14.0-18.[address] [facility] Comment on above: Performed By: #### H H #### [facility] [address] [place] [address] Dr. Jossue Centeno MCH (RBC) [Entitic mass] 27.9 pg Normal 25.9-34.[address] [facility] Comment on above: Performed By: #### H H #### [facility] [address] [place] [address] Dr. Jossue Centeno MCHC (RBC) [Mass/Vol] 33.6 g/dL Normal 29.9-35.[address] [facility] Comment on above: Performed By: #### H H #### [facility] [address] [place] [address] Dr. Jossue Centeno MCV (RBC) [Entitic vol] 83.2 fL Normal 80.0-94.0 [facility] Comment on above: Performed By: #### H H #### [facility] [address] [address] [address] Jossue Centeno PLT 299 103/ul Normal 150-450 [facility] Comment on above: Performed By: #### H H #### [facility] [address] [address] [address] Jossue Centeno RBC 5.41 106/ul Normal 4.70-6.10 [facility] Comment on above: Performed By: #### H H #### [facility] [address] [address] [address] Jossue Centeno WBC 10.2 103/ul Normal 4.0-11.0 [facility] Comment on above: Performed By: #### H H #### [facility] [address] [place] [address] Dr. Jossue Centeno MAGNESIUMon 11-11-2021 Magnesium [Mass/Vol] 1.3 mg/dL Critically low 1.8-2.4 [facility] Comment on above: Performed By: #### K #### [facility] [address] [place] [address] Dr. Jossue Centeno RENAL FUNCTION PANELon 11-11 Albumin [Mass/Vol] 4.1 g/dL Normal 3.4-5.0 [facility] Comment on above: Performed By: #### K #### [facility] [address] [place] [address] Dr. Jossue Centeno Calcium [Mass/Vol] 9.4 mg/dL Normal 8.5-10.1 [facility] Comment on above: Performed By: #### K #### [facility] [address] [place] [address] Dr. Jossue Centeno Chloride [Moles/Vol] 102 mmol/L Normal 98-107 [facility] Comment on above: Performed By: #### K #### [facility] [address] [place] [address] Dr. Jossue Centeno CO2 [Moles/Vol] 30.7 mmol/L Normal 21.0-32.0 [facility] Comment on above: Performed By: #### K #### [facility] [address] [place], [place] [id number] Dr. Jossue Centeno Creatinine [Mass/Vol] 0.83 mg/dL Normal 0.70-1.[address] [facility] Comment on above: Performed By: #### K #### [facility] [address] [place] [address] Dr. Jossue Centeno EGFR-AF LAO >60 Normal >=60 [facility] Comment on above: Performed By: #### K #### [facility] [address] [place] [address] Dr. Jossue Centeno EGFR-NON AF LAO >60 Normal >=[address] [facility] Comment on above: Performed By: #### K #### [facility] [address] [place] [address] Dr. Jossue Centeno Glucose [Mass/Vol] 94 mg/dL Normal 74-106 [facility] Comment on above: Performed By: #### K #### [facility] [address] [place] [address] Dr. Jossue Centeno Phosphate [Mass/Vol] 2.4 mg/dL Critically low 2.6-4.[address] [facility] Comment on above: Performed By: #### K #### [facility] [address] [place] [address] Dr. Jossue Centeno Potassium [Moles/Vol] 5.7 mmol/L Critically high 3.5-5.[address] [facility] Comment on above: Performed By: #### K #### [facility] [address] [place] [address] Dr. Jossue Centeno Sodium [Moles/Vol] 139 mmol/L Normal 136-145 [facility] Comment on above: Performed By: #### K #### [facility] [address] [place] [address] Dr. Jossue Centeno Urea nitrogen [Mass/Vol] 13.0 mg/dL Normal 7.0-18.[address] [facility] Comment on above: Performed By: #### K #### [facility] [address] [place] [address] Dr. Jossue Centeno CARDIAC ESTUARDO 3-6on 2 CK [Catalytic activity/Vol] 536 U/L Critically high 39-[address] [facility] Comment on above: Performed By: #### K #### [facility] [address] [place] [address] Dr. Jossue Centeno CK.MB [Mass/Vol] 3.09 ng/mL Normal <=3.60 [facility] Comment on above: Performed By: #### K #### [facility] [address] [place] [address] Dr. Jossue Centeno HSTROP 179.4 pg/mL Critically high 4.0-76.1 [facility] Comment on above: Result Comment: CUT- OFF POINTS HAVE BEEN ESTABLISHED BASED ON THE FOURTH UNIVERSAL DEFINITIONS OF MYOCARDIAL INFARCTION. THE UPPER REFERENCE LIMIT (URL) OF TROPONIN, DEFINED THE 99TH PERCENTILE OF cTnI DISTRIBUTION IN A REFERENCE POPULATION, HAS BEEN CONFIRMED THE DECISION THRESHOLD FOR OR DIAGNOSIS. TEST REPEATED. CRITICAL VALUE VERIFIED Performed By: #### K #### [facility] [address] [place] [address] Dr. Jossue Centeno CARDIAC ESTUARDO ADMITon 022 CK [Catalytic activity/Vol] 607 U/L Critically high 39-[address] [facility] Comment on above: Performed By: #### MARY Etienne MP #### [facility] [address] [place] [address] Dr. Jossue Centeno CK.MB [Mass/Vol] 3.82 ng/mL Critically high <=3.[address] [facility] Comment on above: Result Comment: TEST REPEATED. CRITICAL VALUE VERIFIED Performed By: #### MARY Etienne MP #### [facility] [address] [place] [address] Dr. Jossue Centeno HSTROP 187.8 pg/mL Critically high 4.0-76.1 [facility] Comment on above: Result Comment: CUT- OFF POINTS HAVE BEEN ESTABLISHED BASED ON THE FOURTH UNIVERSAL DEFINITIONS OF MYOCARDIAL INFARCTION. THE UPPER REFERENCE LIMIT (URL) OF TROPONIN, DEFINED THE 99TH PERCENTILE OF cTnI DISTRIBUTION IN A REFERENCE POPULATION, HAS BEEN CONFIRMED THE DECISION THRESHOLD FOR OR DIAGNOSIS. TEST REPEATED. CRITICAL VALUE VERIFIED Performed By: #### MARY Etienne MP #### [facility] [address] [address] [address] Jossue Centeno MELVI 100 ng/mL Critically high 16-96 [facility] Comment on above: Performed By: #### B MP, JIDM #### [facility] [address] [address] [address] Jossue Centeno CBC AUTO DIFFon 11-08-2021 BASO # 0.1 103/ul Normal 0.0-0.[address] [facility] Comment on above: Performed By: #### K #### [facility] [address] [place] [address] Dr. Jossue Centeno Basophils/100 WBC (Bld) 0.5 % Normal 0.2-2.0 [facility] Comment on above: Performed By: #### K #### [facility] [address] [place] [address] Dr. Jossue Centeno EO # 0.2 103/ul Normal 0.0-0.[address] [facility] Comment on above: Performed By: #### K #### [facility] [address] [place] [address] Dr. Jossue Centeno Eosinophils/100 WBC (Bld) 1.3 % Normal 0.9-7.[address] [facility] Comment on above: Performed By: #### K #### [facility] [address] [place] [address] Dr. Jossue Centeno Erythrocyte distribution width (RBC) [Ratio] 12.6 % Normal 11.0-15.[address] [facility] Comment on above: Performed By: #### K #### [facility] [address] [place] [address] Dr. Jossue Centeno Hematocrit (Bld) [Volume fraction] 41.4 % Critically low 42.0-54.[address] [facility] Comment on above: Performed By: #### K #### [facility] [address] [place] [address] Dr. Jossue Centeno Hemoglobin (Bld) [Mass/Vol] 14.5 g/dL Normal 14.0-18.[address] [facility] Comment on above: Performed By: #### K #### [facility] [address] [place] [address] Dr. Jossue Centeno IG # 0.05 10e3/ul Critically high 0.00-0.03 [facility] Comment on above: Performed By: #### K #### [facility] [address] [place] [address] Dr. Jossue Centeno IG % 0.4 % Normal 0.0-0.[address] [facility] Comment on above: Performed By: #### K #### [facility] [address] [place] [address] Dr. Jossue Centeno LYMPH # 1.6 103/ul Normal 1.2-3.[address] [facility] Comment on above: Performed By: #### K #### [facility] [address] [place] [address] Dr. Jossue Centeno Lymphocytes/100 WBC (Bld) 12.4 % Critically low 20.5-60.[address] [facility] Comment on above: Performed By: #### K #### [facility] [address] [place] [address] Dr. Jossue Centeno MANUAL DIFF REQ NO Normal [facility] Comment on above: Performed By: #### K #### [facility] [address] [place] [address] Dr. Jossue Centeno MCH (RBC) [Entitic mass] 28.3 pg Normal 25.9-34.[address] [facility] Comment on above: Performed By: #### K #### [facility] [address] [place] [address] Dr. Jossue Centeno MCHC (RBC) [Mass/Vol] 35.0 g/dL Normal 29.9-35.[address] [facility] Comment on above: Performed By: #### K #### [facility] [address] [place] [address] Dr. Jossue Centeno MCV (RBC) [Entitic vol] 80.7 fL Normal 80.0-94.0 [facility] Comment on above: Performed By: #### K #### [facility] [address] [place] [address] Dr. Jossue Centeno MONO # 0.9 103/ul Critically high 0.3-0.8 [facility] Comment on above: Performed By: #### K #### [facility] [address] [place] [address] Dr. Jossue Centeno Monocytes/100 WBC (Bld) 6.9 % Normal 1.7-12.0 [facility] Comment on above: Performed By: #### K #### [facility] [address] [place] [address] Dr. Jossue Centeno NEUT # 10.3 103/ul Critically high 1.4-6.5 [facility] Comment on above: Performed By: #### K #### [facility] [address] [place] [address] Dr. Jossue Centeno Neutrophils/100 WBC (Bld) 78.5 % Critically high 43.0-75.[address] [facility] Comment on above: Performed By: #### K #### [facility] [address] [place] [address] Dr. Jossue Centeno Platelet mean volume (Bld) [Entitic vol] 9.5 fL Normal 9.5-13.[address] [facility] Comment on above: Performed By: #### K #### [facility] [address] [place] [address] Dr. Jossue Centeno PLT 306 103/ul Normal 150-[address] [facility] Comment on above: Performed By: #### K #### [facility] [address] [place] [address] Dr. Jossue Centeno RBC 5.13 106/ul Normal 4.70-6.[address] [facility] Comment on above: Performed By: #### K #### [facility] [address] [place] [address] Dr. Jossue Centeno WBC 13.1 103/ul Critically high 4.0-11.0 [facility] Comment on above: Performed By: #### K #### [facility] [address] [place] [address] Dr. Jossue Centeno LIVER PROFILEon 11-08-2021 Albumin [Mass/Vol] 3.8 g/dL Normal 3.4-5.0 [facility] Comment on above: Performed By: #### L IVER #### [facility] [address] [address] [address] Jossue Centeno Albumin/Globulin [Mass ratio] 1.1 {ratio} Normal [facility] Comment on above: Performed By: #### L IVER #### [facility] [address] [address] [address] Jossue Centeno ALP [Catalytic activity/Vol] 91 U/L Normal 46-[address] [facility] Comment on above: Performed By: #### L IVER #### [facility] [address] [address] [address] Jossue Centeno ALT [Catalytic activity/Vol] 69 U/L Critically high 16-[address] [facility] Comment on above: Performed By: #### L IVER #### [facility] [address] [address] [address] Jossue Centeno AST [Catalytic activity/Vol] 40 U/L Critically high 15-[address] [facility] Comment on above: Performed By: #### L IVER #### [facility] [address] [address] [address] Jossue Centeno BILI, CONJUGATED 0.1 mg/dL Normal 0.0-0.2 [facility] Comment on above: Performed By: #### L IVER #### [facility] [address] [address] [address] Jossue Centeno Bilirubin [Mass/Vol] 0.6 mg/dL Normal 0.2-1.[address] [facility] Comment on above: Performed By: #### L IVER #### [facility] [address] [address] [address] Jossue Centeno Globulin (S) [Mass/Vol] 3.4 g/dL Normal T [facility] Comment on above: Performed By: #### L IVER #### [facility] [address] [address] [address] Jossue Centeno Protein [Mass/Vol] 7.2 g/dL Normal 6.4-8.2 [facility] Comment on above: Performed By: #### L IVER #### [facility] [address] [place] [address] Dr. Jossue Centeno PROF CHEM 8 (BAS METB)on Anion gap [Moles/Vol] 10.3 mmol/L Normal Th e [facility] Comment on above: Performed By: #### B BERNICE, JIDM #### [facility] [address] [place] [address] Dr. Jossue Centeno Calcium [Mass/Vol] 8.9 mg/dL Normal 8.5-10.1 [facility] Comment on above: Performed By: #### B BERNICE, JIDM #### [facility] [address] [place] [address] Dr. Jossue Centeno Chloride [Moles/Vol] 97 mmol/L Critically low 98-[address] [facility] Comment on above: Performed By: #### B JI QUEENDM #### [facility] [address] [place] [address] Dr. Jossue Centeno CO2 [Moles/Vol] 34.0 mmol/L Critically high 21.0-32.[address] [facility] Comment on above: Performed By: #### B JI QUEENDM #### [facility] [address] [place] [address] Dr. Jossue Centeno Creatinine [Mass/Vol] 0.89 mg/dL Normal 0.70-1.[address] [facility] Comment on above: Performed By: #### B JI QUEENDM #### [facility] [address] [place] [address] Dr. Jossue Centeno EGFR-AF LAO >60 Normal >=60 [facility] Comment on above: Performed By: #### B BERNICE, JIDM #### [facility] [address] [place] [address] Dr. Jossue Centeno EGFR-NON AF LAO >60 Normal >=[address] [facility] Comment on above: Performed By: #### B BERNICE, JIDM #### [facility] [address] [place] [address] Dr. Jossue Centeno Glucose [Mass/Vol] 98 mg/dL Normal 74-106 [facility] Comment on above: Performed By: #### B BERNICE, MARY #### [facility] [address] [address] [address] Jossue Centeno Potassium [Moles/Vol] 2.4 mmol/L Critically low 3.5-5.[address] [facility] Comment on above: Result Comment: TEST REPEATED. CRITICAL VALUE VERIFIED Performed By: #### B MARY QUEEN #### [facility] [address] [address] [address] Jossue Centeno Sodium [Moles/Vol] 139 mmol/L Normal 136-145 [facility] Comment on above: Performed By: #### B MARY QUEEN #### [facility] [address] [place] [address] Dr. Jossue Centeno Urea nitrogen [Mass/Vol] 14.0 mg/dL Normal 7.0-18.[address] [facility] Comment on above: Performed By: #### B MARY QUEEN #### [facility] [address] [place] [address] Dr. Jossue Centeno Urea nitrogen/Creatinine [Mass ratio] 15.7 mg/mg Normal [facility] Comment on above: Performed By: #### B MARY QUEEN #### [facility] [address] [place] [address] Dr. Jossue Centeno XR CHEST 2 Von [...] Date: 2021-11-08 20:44 Normal [facility] BASIC METABOLIC PANELon 05-11 Calcium 10.4 mg/dL High 8.6-10.3 [facility] Comment on above: Performed By: #### 1 0070, [id number] ####[facility] [place] [address], [facility] [[email or web address]] Chloride 99 mmol/L Normal 98-107 [facility] Comment on above: Performed By: #### 1 69, 11061 ####[facility] [place] [address], [facility] [[email or web address]] CO2 29 mmol/L Normal 21-31 [facility] Comment on above: Performed By: #### 1 69, 49666 ####[facility] [place] [address], [facility] [[email or web address]] Creatinine 0.82 mg/dL Normal 0.70-1.30 [facility] Comment on above: Performed By: #### 1 69, 09202 ####[facility] [place] [address], [facility] [[email or web address]] eGFR (black) mL/min/{1.73_m2} Normal >60 [facility] Comment on above: Performed By: #### 1 69, [id number] ####[facility] [facility] [address], [facility] [[email or web address]] eGFR (non-black) mL/min/{1.73_m2} Normal >60 [facility] Comment on above: Performed By: #### 1 69, 67371 ####[facility] [facility] [address], [facility] [[email or web address]] Glucose mass conc 84 mg/dL Normal 70-100 [facility] Comment on above: Performed By: #### 1 69, 55026 ####[facility] [place] [address], [facility] [[email or web address]] Potassium molar conc 4.5 mmol/L Normal 3.5-5.1 [facility] Comment on above: Performed By: #### 1 69, 13598 ####[facility] [place] [address], [facility] [[email or web address]] Sodium 136 mmol/L Normal 136-145 [facility] Comment on above: Performed By: #### 1 0070, 11915 ####[facility] Urea nitrogen 14 mg/dL Normal 11-30 The [facility] Comment on above: Performed By: #### 1 0070, [id number] ####[facility] [facility].[address] MAGNESIUM BLOODon 06-07-2017 Magnesium 1.6 mg/dL Low 1.9-2.7 [facility] Comment on above: Performed By: #### 1 0070, 57388 ####[facility] Vital Signs Date Time Vital Sign Value Performing Clinician Faci lity 12-01-2023 13:[id number] Body height 177.8 cm [facility] 12-01-2023 13:21-0400 Body mass index (BMI) [Ratio] 34.4 kg/m2 [facility] 12-01-2023 13:21-0400 Body temperature 97.3 [degF] [facility] 12-01-2023 13:21-0400 Body weight 109.08 kg [facility] 12-01-2023 13:21-0400 Diastolic blood pressure 70 mm[Hg] [facility] 12-01-2023 13:21-0400 Heart rate 88 /min [facility] 12-01-2023 13:21-0400 Respiratory rate 16 /min [facility] 12-01-2023 13:21-0400 SaO2% (BldA) [Mass fraction] 97 % [facility] 12-01-2023 13:21-0400 Systolic blood pressure 110 mm[Hg] [facility] 10-06-2023 15:53-0400 Body height 177.8 cm MD Shaikh Alvarez Work Phone: [facility] 10-06-2023 15:53-0400 Body mass index (BMI) [Ratio] 34.9 kg/m2 MD Shaikh Alvarez Work Phone: [facility] 10-06-2023 15:53-0400 Body temperature 98.4 [degF] MD Shaikh Alvarez Work Phone: [facility] 10-06-2023 15:53-0400 Body weight 110.39 kg MD Shaikh Alvarez Work Phone: [facility] 10-06-2023 15:53-0400 Diastolic blood pressure 80 mm[Hg] MD Shaikh Avlarez Work Phone: [facility] 10-06-2023 15:53-0400 Heart rate 82 /min MD Shaikh Alvarez Work Phone: [facility] 10-06-2023 15:53-0400 Respiratory rate 16 /min MD Shaikh Alvarez Work Phone: [facility] 10-06-2023 15:53-0400 SaO2% (BldA) [Mass fraction] 98 % MD Shaikh Alvarez Work Phone: [facility] 10-06-2023 15:53-0400 Systolic blood pressure 119 mm[Hg] MD Shaikh Alvarez Work Phone: [facility] 09-01-2023 14:39-0400 Diastolic blood pressure 67 mm[Hg] MD Shaikh Alvarez Work Phone: [facility] 09-01-2023 14:39-0400 Heart rate 81 /min MD Shaikh Alvarez Work Phone: [facility] 09-01-2023 14:39-0400 Respiratory rate 16 /min MD Shaikh Alvarez Work Phone: [facility] 09-01-2023 14:39-0400 SaO2% (BldA) [Mass fraction] 96 % MD Shaikh Alvarez Work Phone: [facility] 09-01-2023 14:39-0400 Systolic blood pressure 116 mm[Hg] MD Shaikh Alvarez Work Phone: [facility] 09-01-2023 13:05-0400 Body height 177.8 cm MD Shaikh Alvarez Work Phone: [facility] 09-01-2023 13:05-0400 Body temperature 98.6 [degF] MD Shaikh Alvarez Work Phone: [facility] 09-01-2023 13:05-0400 Body weight 104.3 kg MD Shaikh Alvarez Work Phone: [facility] 08-18-2023 13:24-0400 Body height 172.72 cm MD Shaikh Alvarez Work Phone: [facility] 08-18-2023 13:24-0400 Body weight 104.32 kg MD Shaikh Alvarez Work Phone: [facility] 08-18-2023 13:24-0400 Diastolic blood pressure 87 mm[Hg] MD Shaikh Alvarez Work Phone: [facility] 08-18-2023 13:24-0400 Heart rate 99 /min MD Shaikh Alvarez Work Phone: [facility] 08-18-2023 13:24-0400 Respiratory rate 16 /min MD Shaikh Alvarez Work Phone: [facility] 08-18-2023 13:24-0400 SaO2% (BldA) [Mass fraction] 97 % MD Shaikh Alvarez Work Phone: [facility] 08-18-2023 13:24-0400 Systolic blood pressure 128 mm[Hg] MD Shaikh Alvarez Work Phone: [facility] 07-18-2023 13:02-0400 Body height 175.26 cm MD Shaikh Alvarez Work Phone: [facility] 07-18-2023 13:02-0400 Body mass index (BMI) [Ratio] 34.8 kg/m2 MD Shaikh Alvarez Work Phone: [facility] 07-18-2023 13:02-0400 Body weight 107.04 kg MD Shaikh Alvarez Work Phone: [facility] 07-18-2023 13:02-0400 Diastolic blood pressure 90 mm[Hg] MD Shaikh Alvarez Work Phone: [facility] 07-18-2023 13:02-0400 Heart rate 79 /min MD Shaikh Alvarez Work Phone: [facility] 07-18-2023 13:02-0400 Systolic blood pressure 129 mm[Hg] MD Shaikh Alvarez Work Phone: [facility] 06-16-2023 15:56-0500 Body height 172.7 cm Shaikh Kim CALL Work Phone: [facility] 06-16-2023 15:56-0500 Body mass index (BMI) [Ratio] 35.73 kg/m2 Shaikh Kim CALL Work Phone: [facility] 06-16-2023 15:56-0500 Body temperature 97.9 [degF] Shaikh Kim CALL Work Phone: [facility] 06-16-2023 15:56-0500 Body weight 106.59 kg Shaikh Kim CALL Work Phone: [facility] 06-16-2023 15:56-0500 Diastolic blood pressure 76 mm[Hg] Shaikh Kim CALL Work Phone: [facility] 06-16-2023 15:56-0500 Heart rate 72 /min Shaikh Kim CALL Work Phone: [facility] 06-16-2023 15:56-0500 SaO2% (BldA) [Mass fraction] 96 % Shaikh Kim CALL Work Phone: [facility] 06-16-2023 15:56-0500 Systolic blood pressure 110 mm[Hg] Shaikh Kim CALL Work Phone: [facility] 11-25-2022 15:40-0400 Body height 175.26 cm Marcelino Andra Other [facility] Other 11-25-2022 15:40-0400 Body mass index (BMI) [Ratio] 34.23 kg/m2 Marcelino Andra Other [facility] Other 11-25-2022 15:40-0400 Body temperature 98 [degF] Marcelino Andra Other [facility] Other 11-25-2022 15:40-0400 Body weight 105.14 kg Marcelino Andra Other [facility] Other 11-25-2022 15:40-0400 Diastolic blood pressure 81 mm[Hg] Marcelino Andra Other [facility] Other 11-25-2022 15:40-0400 Respiratory rate 18 /min Marcelino Andra Other [facility] Other 11-25-2022 15:40-0400 SaO2% (BldA) [Mass fraction] 98 % Marcelino Andra Other [facility] Other 11-25-2022 15:40-0400 Systolic blood pressure 134 mm[Hg] Marcelino Villegas Other [facility] Other 12-02-2021 09:05-0400 Diastolic blood pressure 88 mm[Hg] Provider AMAProvider Work Phone: [phone] [place] [address] Work Phone: 12-02-2021 09:05-0400 Systolic blood pressure 118 mm[Hg] Provider AMAProvider Work Phone: [facility] Work Phone: 12-02-2021 09:04-0400 Body height 177.8 cm Provider AMAProvider Work Phone: [phone] [place] [address] Work Phone: 12-02-2021 09:04-0400 Body mass index (BMI) [Ratio] 31.14 kg/m2 Provider AMAProvider Work Phone: [phone] [place] [address] Work Phone: 12-02-2021 09:04-0400 Body surface area Derived from formula 2.16 m2 Provider [facility]Provider Work Phone: [phone] [place] [address] Work Phone: 12-02-2021 09:04-0400 Body weight 98.43 kg Provider AMAProvider Work Phone: [phone] [place] [address] Work Phone: 12-02-2021 09:04-0400 Diastolic blood pressure 86 mm[Hg] Provider AMAProvider Work Phone: [facility] Work Phone: 12-02-2021 09:04-0400 Heart rate 66 /min Provider AMAProvider Work Phone: [facility] Work Phone: 12-02-2021 09:04-0400 Systolic blood pressure 122 mm[Hg] Provider AMAProvider Work Phone: [phone] [place] [address] Work Phone: 03-25-2021 12:20-0500 Body height 175.26 cm Marcelino Andra Other [facility] Other 03-25-2021 12:20-0500 Body mass index (BMI) [Ratio] 30.59 kg/m2 Marcelino Andra Other [facility] Other 03-25-2021 12:20-0500 Body temperature 99.1 [degF] Marcelino Andra Other [facility] Other 03-25-2021 12:20-0500 Body weight 93.99 kg Marcelino Andra Other [facility] Other 03-25-2021 12:20-0500 Diastolic blood pressure 82 mm[Hg] Marcelino Andra Other [facility] Other 03-25-2021 12:20-0500 Respiratory rate 18 /min Marcelino Andra Other [facility] Other 03-25-2021 12:20-0500 SaO2% (BldA) [Mass fraction] 96 % Marcelino Andra Other [facility] Other 03-25-2021 12:20-0500 Systolic blood pressure 125 mm[Hg] Marcelino Andra Other [facility] Other Encounters Encounter Date Encounter Type Care Provider Facility Start: 12-01-2023 End: 12-01-2023 ambulatory [facility] Work Phone: Start: 12-01-2023 End: 12-01-2023 Patient encounter procedure [facility] [place] Work Phone: Start: 11-21-2023 Non-patient / Non-visit [facility] Work Phone: Start: 11-19-2023 Non-patient / Non-visit [facility] Work Phone: Start: 10-26-2023 Non-patient / Non-visit [facility] Work Phone: Start: 10-06-2023 End: 10-06-2023 ambulatory MD Shaikh Alvarez Work Phone: [facility] Work Phone: Start: 10-06-2023 End: 10-06-2023 Patient encounter procedure MD Shaikh Alvarez Work Phone: [facility] Work Phone: Start: 10-06-2023 Non-patient / Non-visit MD Shaikh Alvarez Work Phone: [facility] Work Phone: Start: 09-01-2023 End: 09-01-2023 ambulatory Imad Asaad Facility:[facility] Start: 09-01-2023 Non-patient / Non-visit MD Shaikh Alvarez Work Phone: [facility] Work Phone: Start: 09-01-2023 End: 09-01-2023 Admission to same day surgery center MD Shaikh Alvarez Work Phone: [facility] Work Phone: Start: 09-01-2023 End: 09-01-2023 ambulatory MD Shaikh Alvarez Work Phone: [facility] Work Phone: Start: 08-18-2023 End: 08-18-2023 ambulatory Imad Asaad Facility:[facility] Start: 08-18-2023 End: 08-18-2023 Admission to same day surgery center MD Shaikh Alvarez Work Phone: [facility] Work Phone: Start: 08-18-2023 End: 08-18-2023 ambulatory MD Shaikh Alvarez Work Phone: [facility] Work Phone: Start: 08-04-2023 End: 08-04-2023 ambulatory OSVALDO BRINK Not Available Start: 08-02-2023 End: 08-02-2023 ambulatory JEREMIAH MERRITT Not Available Start: 07-28-2023 End: 07-28-2023 ambulatory FRANCE REINA Not Available Start: 07-23-2023 End: 07-23-2023 ambulatory Imad Asaad Facility:[facility] Start: 07-23-2023 End: 07-23-2023 ambulatory MD Shaikh Alvarez Work Phone: [facility] Work Phone: Start: 07-23-2023 End: 07-23-2023 Patient encounter procedure MD Shaikh Alvarez Work Phone: [facility] [place] Work Phone: Start: 07-21-2023 End: 07-21-2023 ambulatory FRANCE REINA Not Available Start: 07-19-2023 End: 07-19-2023 ambulatory OSVALDO BRINK Not Available Start: 07-18-2023 End: 07-18-2023 Patient encounter procedure MD Shaikh Alvarez Work Phone: [facility] Work Phone: Start: 07-14-2023 End: 07-14-2023 ambulatory OSVALDO BRINK Not Available Start: 07-12-2023 End: 07-12-2023 ambulatory OSVALDO BRINK Not Available Start: 07-07-2023 End: 07-07-2023 ambulatory FRANCE REINA Not Available Start: 06-30-2023 End: 06-30-2023 ambulatory OSVALDO LEE [...] 04-11-2023 End: 04-11-2023 ambulatory Imad Asaad Other [facility] Other Start: 04-11-2023 Encounter by vickey amaya Imad Asaad [facility] Start: 11-25-2022 End: 11-25-2022 ambulatory Marcelino Andra Other [facility] Other Start: 11-25-2022 Office outpatient visit 15 minutes Marcelino Andra [facility] [place] Start: 11-25-2022 Telephone encounter Marcelino Andra [facility] Start: 08-27-2022 End: 08-27-2022 ambulatory Marcelino Andra Other [facility] Other Start: 08-27-2022 Telephone encounter Marcelino Andra [facility] Start: 06-23-2022 End: 06-24-2022 ambulatory SHAIKH Sawyer ALVAREZ Facility:[facility] Start: 01-27-2022 End: 01-28-2022 ambulatory NIDA WOODS Facility:[facility] Start: 12-02-2021 Office outpatient ne w 45 minutes Provider AMAPrsalvatore Work Phone: [facility] Work Phone: Start: 11-16-2021 End: 11-17-2021 ambulatory MARCELINO ANDRA Facility:[facility] Start: 11-12-2021 End: 11-13-2021 ambulatory MARCELINO ANDRA Facility:[facility] Start: 11-11-2021 End: 11-12-2021 ambulatory MARCELINO ANDRA [facility] Other Start: 11-11-2021 Telephone encounter Marcelino Andra [facility] Start: 11-10-2021 End: 11-10-2021 ambulatory Marcelino Andra Other [facility] Other Start: 11-10-2021 Telephone encounter Marcelino Andra [facility] Start: 11-08-2021 End: 11-09-2021 ambulatory NIDA CHUCK Facility:[facility] Start: 10-13-2021 End: 10-13-2021 ambulatory NIDA CHUCK Facility:[facility] Start: 10-12-2021 End: 10-12-2021 ambulatory Nida A Chuck PHYSICAL THERAPY TEACHER-C Facility:[facility] Start: 09-23-2021 ambulatory MARCELINO ANDRA Facility:[facility] Start: 03-25-2021 End: 03-25-2021 ambulatory Marcelino Andra Other [facility] Other Start: 03-25-2021 Office outpatient visit 15 minutes Marcelino Andra [facility] Start: 03-24-2021 End: 03-24-2021 ambulatory Marcelino Andra Other [facility] Other Start: 03-24-2021 Telephone encounter Marcelino Andra [facility] [employer] [employer] [facility] Start: 07-22-2017 End: 07-23-2017 Ambulatory MARBELLA MAVERICK Facility:[facility] Start: 06-07-2017 End: 06-08-2017 Ambulatory OSIYEMI OSINOWO Facility:[facility] Procedures Date Procedure Procedure Detail Performing Clinician Start: 09-01-2023 Esophagogastroduodenoscopy MD Shaikh Alvarez Work Phone: Start: 08-18-2023 Esophagogastroduodenoscopy MD Shaikh Alvarez Work Phone: NEGATED: Highlighted row has not occurred! Total colonoscopy Provider Amelia er Work Phone: Plan of Treatment Date Care Activity Detail Author Start: 09-01-2023 [facility] Start: 08-18-2023 [facility] Start: 06-27-2023 End: 06-27-2023 Patient encounter procedure 06/27/2023 9:45 AM EST Office Visit [facility] [address] [place] [address] Shaikh Alvarez MD [address] [place] [address] [facility] Start: 06-23-2023 End: 06-23-2023 ambulatory 06/23/2023 1:00 PM EST Evaluation [facility] [address] [facility] [address] [place] [address] France Reina, PT [address] [facility] [address] [place] [address] [facility] Start: 06-16-2023 End: 06-16-2024 MR Shoulder - right WO contrast MR shoulder right wo IV contrast Imaging Routine Acute pain of right shoulder Expected: 06/16/2023, Expires: 06/16/2024 [facility] Work Phone: Comment on above: Expected: 06/16/2023 , Expires: 06/16/2024 Start: 01-07-2023 Influenza vaccination Influenza Vacc ine (#1) [facility] Start: 01-05-2022 STRESS NUC, Provider : FRANCISCO YOUNG NUCLEAR ,[id number], Status: Pen, Time: 12:00 PM STRESS NUC, Provider: FRANCISCO CHEEMA ,[id number], Status: Pen, Time: 12:00 PM [facility] Work Phone: Start: 01-05-2022 ECHO, Provider: FRANCISCO [facility] ULTRASOUND ,[id number], Status: Pen, Time: 9:45 AM ECHO, Provider: FRANCISCO [facility] ULTRASOUND ,[id number], Status: Pen, Time: 9:45 AM [facility] Work Phone: Patient Education Gastric Ulcer (DC) [facility] Work Phone: Renal function 1999 panel - Serum or Plasma [facility] Renal function 1999 panel - Serum or Plasma [facility] Immunizations Immunization Date Immunization Notes Care Provider Fa cility 10-04-2020 Pfizer-BioNTech COVID-19 Vacc 30 MCG/0.3ML Intramuscular Suspension Provider AMAProvider Work Phone: [facility] Work Phone: 09-07-2020 Pfizer-BioNTech COVID-19 Vacc 30 MCG/0.3ML Intramuscular Suspension Provider AMAProvider Work Phone: [facility] Work Phone: 12-14-2000 diphtheria, tetanus toxoids and acellular pertussis vaccine, unspecified formulation Provider AMAProvider Work Phone: [facility] Work Phone: 12-14-2000 measles, mumps and rubella virus vaccine Provider AMAProvider Work Phone: [facility] Work Phone: 12-14-2000 poliovirus vaccine, inactivated Provider AMAProvider Work Phone: [facility] Work Phone: 02-06-1997 diphtheria, tetanus toxoids and acellular pertussis vaccine, unspecified formulation Provider AMAProvider Work Phone: [facility] Work Phone: 02-06-1997 haemophilus influenz ae type b vaccine, conjugate unspecified formulation Provider AMAProvider Work Phone: [facility] Work Phone: 02-06-1997 measles, mumps and rubella virus vaccine Provider [facility] Work Phone: [phone] [place] [address] Work Phone: 10-08-1996 diphtheria, tetanus toxoids and acellular pertussis vaccine, unspecified formulation Provider [facility] Work Phone: [phone] [place] [address] Work Phone: 10-08-1996 haemophilus influenz ae type b vaccine, conjugate unspecified formulation Provider [facility] Work Phone: [phone] [address] Work Phone: 10-08-1996 hepatitis B vaccine, pediatric or pediatric/adolescent dosage Provider [facility]Provider Work Phone: [phone] [address] Work Phone: 10-08-1996 trivalent poliovirus vaccine, live, oral Provider [facility] Work Phone: [phone] [place] [address] Work Phone: 04-02-1996 DTP-Haemophilus influenzae type b conjugate vaccine Provider [facility] Work Phone: [phone] [address] Work Phone: 04-02-1996 trivalent poliovirus vaccine, live, oral Provider [facility] Work Phone: [phone] [place] [address] Work Phone: 1995 DTP-Haemophilus influenzae type b conjugate vaccine Provider [facility] Work Phone: [phone] [place] [address] Work Phone: 1995 hepatitis B vaccine, pediatric or pediatric/adolescent dosage Provider [facility] Work Phone: [phone] [place] [address] Work Phone: 1995 trivalent poliovirus vaccine, live, oral Provider [facility] Work Phone: [phone] [place] [address] Work Phone: 1995 hepatitis B vaccine, pediatric or pediatric/adolescent dosage Provider [facility] Work Phone: [phone] [place] [address] Work Phone: Payers Date Payer Category Payer Self-pay [id number] 2023 Private Health Insurance [facility] [id number] 2023 Private Health Insurance [facility] [id number] 2023-Present [address] [place] [address] [id number]. 7.3.865196.315 2023 Private Health Insurance [facility] [id number] 2021 Unknown [id number] 2.16.840.1.634058.19 1995 Unknown [id number] 2.16.840.1.754889.3.579.2. 593 1995 Unknown [id number] 2.16.840.1.170626.3.579.2. 593 1995 Unknown [id number] 2.16.840.1.219471.3.579.2. 593 1995 Unknown [id number] 2.16.840.1.064782.3.579.2. 593 1995 Unknown [id number] 2.16.840.1.478040.3.579.2. 593 1995 Unknown [id number] 2.16.840.1.530403.3.579.2. 593 1995 Unknown [id number] 2.16.840.1.084935.3.579.2. 593 1995 Unknown [id number] 2.16.840.1.163442.3.579.2. 593 1995 Unknown [id number] 2.16.840.1.981467.3.579.2. 1259 1995 Unknown [id number] 2.16.840.1.174368.3.579.2. 1259 1995 Unknown [id number] 2.16.840.1.745945.3.579.2. 1259 1995 Unknown [id number] 2.16.840.1.507020.3.579.2. 1258 1995 Unknown [id number] 2.16.840.1.425631.3.579.2. 1258 1995 Unknown [id number] 2.16.840.1.256249.3.579.2. 1258 1995 Unknown [id number] 2.16.840.1.722294.3.579.2. 1258 1995 Unknown [id number] 2.16.840.1.721439.3.579.2. 1258 1995 Unknown [id number] 2.16.840.1.617900.3.579.2. 1258 1995 Unknown [id number] 2.16.840.1.101109.3.579.2. 1258 1995 Unknown [id number] 2.16.840.1.298020.3.579.2. 1258 1995 Unknown [id number] 2.16.840.1.650760.3.579.2. 718 1959 Private Health Insurance [id number] 1959 Private Health Insurance [id number] 1959 Self-pay [id number] 1959 Unknown [id number] Unknown [id number] Unknown Unknown [id number] 2.16840.1.731027.3.579.2. 531 Unknown [id number] 2.16.840.1.677077.3.579.2. 531 Unknown [id number] 2.16.840.1.476351.3.579.2. 531 Social History Date Type Detail Facility Unknown if ever smoked [facility] Start: 06-16-2023 Sex Assigned At [facility] Start: 06-16-2023 No illicit drug use No illicit drug use [facility] Work Phone: Comment on above: 1 can of pop daily.; Start: 06-16-2023 End: 10-06-2023 Tobacco smoking status NHIS Never smoked tobacco [facility] Start: 06-16-2023 End: 06-20-2023 Alcohol intake Lifetime non-drinker (finding) [facility] Start: 1995 Sex Assigned At Not on file [facility] Start: 1995 Sex Assigned At Male [facility] NEGATED: Highlighted rowStart: NINF History of tobacco use Passive smoker [facility] Goals Date Patient Goal Desired Activity /State Clinical Notes 03-25-2021 to 09-01-2023 Shaikh Kim MD - 06/16/2023 4:38 PM ESTSalyson Alvarez MD - 06/16/2023 3:45 PM EST Note Date & Type Note Facility 09-01-2023 Procedure note [facility] 06-16-2023 History of Present illness Narrative [...] weeks (around 06/30/2023). documented in this encounter [facility] 11-25-2022 Evaluation note Encounter Date Diagnosis Assessment [...] the Gitelman syndrome. Continue oral magnesium supplement. [facility] Other 04-21-2023 Evaluation note* Encounter Date Diagnosis Assessment Notes Treatment Notes Treatment Clinical Notes Aug, Hypomagnesemia (ICD-10 - E83.42) Aug, Hypokalemia (ICD-10 - E87.6) [facility] Other 07-06-2022 Evaluation note* Encounter Date Diagnosis Assessment Notes Treatment Notes Treatment Clinical Notes Nov, Leukocytosis (ICD-10 - D72.829) Nov, Hypomagnesemia (ICD-10 - E83.42) Nov, Hypokalemia (ICD-10 - E87.6) [facility] Other 07-04-2022 Chief complaint Narrative - Reported* [...] or ischemic defects and follow-up as needed [facility] Work Phone: [phone]) 264-371007-04-2022 Chief complaint Narrative - Reported* [place] [...] or ischemic defects and follow-up as needed [facility] Work Phone: [phone]) 826-909411-17-2021 Evaluation note* Encounter Date Diagnosis Assessment Notes [...] weeks to make sure it is resolved. [employer] Other Evaluation noteNo Information[facility]ortMain [facility] Other Evaluation note* Diagnosis Acute pain of right shoulder- Primary documented in this encounter [facility] HealthcareEvaluation note* Diagnosis Infraspinatus strain, right, subsequent encounter- Primary documented in this encounter [facility] HealthcareEvaluation note* Diagnosis Onset Date Resolution Status Abdominal pain acute [facility] Work Phone: Evaluation note* Diagnosis Onset Date Resolution Status Abdominal pain acute Gitelman syndrome acute Hypokalemia acute Hypomagnesemia [facility] Work Phone: Evaluation note* Diagnosis Onset Date Resolution Status Gitelman syndrome acute Hypokalemia acute Hypomagnesemia acute Gitelman syndrome acute Hypokalemia acute Hypomagnesemia acute Proteinuria acute [facility] Work Phone: History and physical note Author Carlos Johnson [facility] September 01, 2023 2:03pm Note Date/Time September 01, 2023 1:5 2pm [facility] [address] [place] [address] Gastroenterology H&P Signed Patient: Wood Horn MR#: [id number] : 1995 Acct:[id number] Age/Sex: 27 / M Adm Date: 4 Loc: Room: Type: [facility] Attending Dr: Carlos Johnson MD Copies to: [...] M.D. 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 Hospitalization History low potassium 2013 Hospitalization History low potassium 2019 Hospitalization History low potassium 2018 [facility] Other Reason for referral (narrative)* Consultation (Routine) - Pending Review Specialty Diagnoses / Procedures Referred By Sonny peters Referred To Contact Orthopaedic Surgery Diagnoses Infraspinatus strain, right, subsequent encounter Shaikh Alvarez MD [address] [place] [address] Rey Cruz MD [address] [place], [place] [id number] Referral ID Status Reason Start Date Expiration Date Visits Requested Visits Authorized [id number] Pending Review Specialty Services Required 06/22/2023 12/19/2023 1 1 [facility] Summary Purpose Family History No Family History Records FoundUnknown Family Member Name Dates Details No pertinent family history: Mother, Father, Sister, Brother(V49.89, Z78.9) Status:Active Unknown Family Member Name Dates Details No pertinent family history: Mother, Father, Sister, Brother(V49.89, Z78.9) Status:Active Relationship Condition Age at Onset Recorded Date/T nasir Not Specified Diabetes mellitus Unknown Hypertension Unknown Relationship Condition Age at Onset Recorded Date/T nasir mother Diabetes mellitus Unknown Hypertension Unknown Advance Directives No Advanced Directives Records Found Advance Directive Response Recorded Date/ Time Advance Directives No October 15 7:09pm Reason for Referral Specialty Diagnoses / Procedures Referred By Sonny peters Referred To Contact Diagnoses Acute pain of right shoulder Procedures MR shoulder right wo IV contrast Shaikh Alvarez MD [address] [place] [address] [facility] [address] [place] [address] Phone: [phone] Referral ID Status Reason Start Date Expiration Date V isits Requested Visits Authorized [id number] Pending Review 06/16/2023 12/13/2023 1 1 Specialty Diagnoses / Procedures Referred By Sonny peters Referred To Contact Physical Therapy Diagnoses Acute pain of right shoulder Procedures FL OFFICE/OUTPATIENT NEW HIGH MDM 60 MINUTES Shaikh Alvarez MD [address] [place] [address] France Reina, PT [address] [place] [address] Referral ID Status Reason Start Date Expiration Date Visits Requested Visits Authorized [id number] Pending Review Consult and Treat 06/16/2023 12/13/2023 [...] Visit Abdominal pain Gitelman syndrome Hypokalemia Hypomagnesemia Chief Complaint RENAL F/U Renal f/u Reason for Visit Gitelman syndrome Hypokalemia Hypomagnesemia Gitelman syndrome Hypokalemia Hypomagnesemia Proteinuria Additional Source Comments (unrecognized sect ion and content) No Status Records FoundNo Status Records FoundNo Status Records FoundNo Status Records FoundNo Status Records FoundNo Status Records Found INFORMATION SOURCE (unrecogn ized section and content) DATE CREATED AUTHOR 10/28/2017 [facility] DATE CREATED AUTHOR AUTHOR'S ORGANIZ ATION 12/05/2021 [employer] DATE CREATED AUTHOR AUTHOR'S ORGANIZ ATION 06/28/2022 [facility] DATE CREATED AUTHOR AUTHOR'S ORGANIZ ATION 08/05/2023 [facility] DATE CREATED AUTHOR AUTHOR'S ORGANIZ ATION 09/09/2023 [facility] DATE CREATED AUTHOR AUTHOR'S ORGANIZ ATION 02/18/2024 [facility] REASON FOR VISIT (unrecogniz ed section and content) Reason Comments Shoulder Pain RIGHT Care Teams (unrecognized sec tion and content) Team Status: Active Member Role Status Dates Shaikh Kim MD Primary Care Provider Active Team Status: Active Member Role Status Dates [...] October 06, 2023 End: October 06, 2023 Team Status: Active Member Role Status Dates Shaikh Kim MD Primary Care Provider Active Start: October 26, 2023 Marcelino Villegas MD Attending Provider Active Start : October 26, 2023 Team Status: Active Member Role Status Dates Shaikh Kim MD Primary Care Provider Active Start: November 19, 2023 Marcelino Villegas MD Attending Provider Active Start : November 19, 2023 Team Status: Active Member Role Status Dates Shaikh Kim MD Primary Care Provider Active Start: November 21, 2023 Marcelino Villegas MD Attending Provider Active Start : November 21, 2023 Team Status: Inactive Member Role Status Dates Shaikh Kim MD Primary Care Provider Active Start: December 01, 2023 End: December 01, 2023 Marcelino Villegas MD Attending Provider Active Start : December 01, 2023 End: December 01, 2023 Chemical Packager Relationship Specialty Start Date End Date Shaikh Alvarez MD [address] [place] [address] PCP - General Internal Medicine 06/16/23 Chemical Packager Relationship Specialty Start Date End Date Shaikh Alvarez MD [address] [place] [address] PCP - General Internal Medicine 06/16/23 Team Status: Inactive Member Role Status Dates Nida Woods APRN PHYSICAL THERAPY TEACHER-C Primary Care Provider Active Start: July 18, [...] 2023 Team Status: Active Member Role Status Candy Alvarez MD Primary Care Provider Active Start: September [...] BE BASED ON THE PRIMARY CLINICAL RECORDS. [employer] [facility]. provides no warranty or guarantee of the accuracy or completeness of information in this document.
[2024-03-20 09:12] LABS: Bilirubin Urine NEGATIVE (NEGATIVE); Blood Urine NEGATIVE (NEGATIVE); Clarity Urine CLEAR (CLEAR); Color Urine LT. YELLOW (YELLOW); Creatinine Urine Random 89.49 mg/dL (20.00-300.00); Glucose Urine UA NEGATIVE (NEGATIVE); Ketones Urine NEGATIVE (NEGATIVE); Leukocyte Esterase Urine NEGATIVE (NEGATIVE); Nitrite Urine NEGATIVE (NEGATIVE); Protein Creatinine Ratio Urine 0.15; Protein Urine NEGATIVE (NEG/TRACE); Specific Gravity Urine 1.015 (1.005-1.025); Total Protein Urine Random 13.6 mg/dL (<=11.9); Urobilinogen Urine 0.2 EU/dL (0.2-1.0); pH Urine 7.5 (5.0-9.0)
[2024-03-20 09:17] LABS: Albumin Level 3.6 g/dL (3.4-5.0); Anion Gap 11.9; BUN Creatinine Ratio 14.6; Calcium 9.2 mg/dL (8.5-10.1); Carbon Dioxide 31.9 mmol/L (21.0-32.0); Chloride 99 mmol/L (98-107); Estimated GFR (African America >60 (>=60 mL/min/1.73m^2); Estimated GFR (Non-African Ame >60 (>=60 mL/min/1.73m^2); Glucose 98 mg/dL (74-106); Magnesium 1.4 mg/dL (1.8-2.4); Phosphorus 2.6 mg/dL (2.6-4.7); Sodium 140 mmol/L (136-145)
[2024-03-20 09:32] LABS: Bacteria Urine NONE SEEN #/HPF (NONE SEEN); Cast Seen? NONE SEEN #/LPF (NONE SEEN); Crystals Seen? None Seen #/HPF (None Seen); Mucus Urine NONE SEEN (NONE SEEN); RBC Urine 0-2 #/HPF (0-2); Squamous Epithelial Cell Urine NONE SEEN #/LPF (NONE/RARE); WBC Urine NONE SEEN #/HPF (NONE SEEN)
[2024-03-20 09:56] LABS: Potassium 2.8 mmol/L (3.5-5.1)
== END 2024-03-20 08:34 | disposition home or self-care (01) ==
LOC: LAB 08:35
PROVIDERS: PCP Internal Medicine; Visit Provider Internal Medicine
DX: E83.42 Hypomagnesemia (principal); E87.6 Hypokalemia
CPT/HCPCS: 36415; 80069; 81001; 82570; 83735; 84156; 85027

== ENCOUNTER 2024-03-20 10:47 | Emergency (ER) | payer OTHER, SELFPAY ==
[2024-03-20 10:51] VITALS: BP 112/76; PULSE 86; TEMP 37.2; O2SAT 97; BMI 32.5
--- NOTE | 2024-03-20 11:48 | ED.RECABL1 ---
HPI - Recheck/Abnormal Lab/Rx General Chief Complaint: Recheck/Abnormal Lab/Rx Stated Complaint: ABNORMAL LAB RESULT Time Seen by Provider: 03/20/24 10:49 Source: patient Mode of arrival: walk-in Limitations: no limitations History of Present Illness HPI narrative: Patient presents to ED complaining of abnormal lab. He was called by the lab and said to come in for critically low potassium. He has a history of low potassium in his normal is usually 2.8-3.0. He states his is not critical until its down to about 2.4. He said they called in for critical of 2.8 and he said it was a new nurse and not 1 that he normally works with and she told him to come to the emergency room. He has no symptoms no abnormalities no chest pain no shortness of breath. He did take some extra potassium before his lab draw but it may have not had time to set him yet. Patient is resting comfortably in the bed in no acute distress Related Data Home Medications ?Medication ?Instructions ?Recorded ?Confirmed amiloride 5 mg tablet mg 06/15/23 magnesium chloride 70 mg mg PO 06/15/23 (magnesium chloride) tablet,delayed release potassium chloride 20 mEq meq PO 06/15/23 tablet,extended release Allergies Allergy/AdvReac Type Severity Reaction Status Date / Time No Known Drug Allergies Allergy Verified 06/15/23 21:03 Review of Systems ROS Status of ROS 10 or more systems reviewed and unremarkable except as noted in history and below [facility] Social History Smoking status: Never smoker Little interest or pleasure in doing things: not at all Feeling down, depressed, or hopeless: not at all Exam Narrative Exam Narrative: General: alert, no acute distress Cardiovascular: regular rate and rhythm, normal peripheral perfusion. Respiratory: Lungs CTA, respirations non labored. Extremities: no deformity, no trauma. Neurological: oriented x 4, LOC appropriate for age. Constitutional Vital Signs, click to edit/add: Last Vital Signs Temp 99 F 03/20/24 10:51 Pulse 88 03/20/24 12:53 Resp 16 03/20/24 12:53 BP 134/92 H 03/20/24 12:53 Pulse Ox 96 03/20/24 12:53 O2 Del Method Room Air 03/20/24 12:53 Course Vital Signs Vital signs: Vital Signs Temperature 99 F 03/20/24 10:51 Pulse Rate 86 03/20/24 10:51 Respiratory Rate 20 03/20/24 10:51 Blood Pressure 112/76 03/20/24 10:51 Pulse Oximetry 97 03/20/24 10:51 Oxygen Delivery Method Room Air 03/20/24 10:51 Temperature 99 F 03/20/24 10:51 Pulse Rate 88 03/20/24 12:53 Respiratory Rate 16 03/20/24 12:53 Blood Pressure 134/92 H 03/20/24 12:53 Pulse Oximetry 96 03/20/24 12:53 Oxygen Delivery Method Room Air 03/20/24 12:53 MDM - Recheck/Abnormal Lab/Rx MDM Narrative Medical decision making narrative: Patient's repeat potassium is 3.5. Patient has chronic potassium issues and this is very normal for him. No other indication for workup or replacement is needed at this time. Patient is to continue to follow-up with his radiology services manager. Return to ED if worsening symptoms. Patient is comfortable care plan for home Differential Diagnosis Differential diagnosis: Likely other (Hypokalemia) Medical Records Attestation: I reviewed the patient's medical records. Lab Data Attestation: I reviewed the patient's lab results. Labs: Lab Results 03/20/24 Range/Units 11:56 Sodium 142 (136-145) mmol/L Potassium 3.5 (3.5-5.1) mmol/L Chloride 103 (98-107) mmol/L Carbon Dioxide 28.1 (21.0-32.0) mmol/L Anion Gap 14.4 BUN 11.0 (7.0-18.0) mg/dL Creatinine 0.84 (0.70-1.30) mg/dL Est GFR ( Amer) >60 (>=60 mL/min/1.73m^2) Est GFR (Non-Af Amer) >60 (>=60 mL/min/1.73m^2) BUN/Creatinine Ratio 13.1 Glucose 94 (74-106) mg/dL Calcium 8.5 (8.5-10.1) mg/dL ECG Data Attestation: I personally reviewed and interpreted this ECG as follows: Interpretation: EKG INTERPRETATION Time: [] 1145 Rate: [] 75 Rhythm: _ [] Normal sinus rhythm ST segments: _ [] No acute ST elevation or depression T waves: _ [] Ectopy: _ [] P wave/OR interval: _ [] QRS interval: _ [] QT interval: _ [] Comparison: _ [] Comparison EKG date: [] Performed by: [self] Discharge Plan Discharge Chief Complaint: Recheck/Abnormal Lab/Rx Clinical Impression: Abnormal laboratory test Patient Disposition: Home, Self-Care Time of Disposition Decision: 12:46 Condition: Good Mode of Transportation: Private Vehicle Prescriptions / Home Meds: No Action amiloride 5 mg tablet potassium chloride 20 mEq tablet extended release PO magnesium chloride 70 mg tablet,delayed release (DR/EC) PO Print Language: Sudanese Instructions: Hypokalemia (ED) Referrals: Shaikh Alvarez MD [Primary Care Provider] - 1 week Discharge Date/Time: 03/20/24 12:54
[2024-03-20 12:35] LABS: Anion Gap 14.4; BUN Creatinine Ratio 13.1; Calcium 8.5 mg/dL (8.5-10.1); Carbon Dioxide 28.1 mmol/L (21.0-32.0); Chloride 103 mmol/L (98-107); Estimated GFR (African America >60 (>=60 mL/min/1.73m^2); Estimated GFR (Non-African Ame >60 (>=60 mL/min/1.73m^2); Glucose 94 mg/dL (74-106); Potassium 3.5 mmol/L (3.5-5.1); Sodium 142 mmol/L (136-145)
--- NOTE | 2024-03-20 12:50 | ECG_ITS ---
[facility] Test Date: 2024-03-20 Pat Name: SOFIE MENDOZA Department: Room: - Gender: Male [employer]: : 1995 Requested By: SHAIKH STANFORD Order Number: [id number] Reading MD: JIMMIE WALKER Measurements Intervals [place] Rate: 75 P: 19 HI: 140 QRS: 29 QRSD: 92 T: -14 QT: 352 QTc: 381 Interpretive Statements 1100 Sinus rhythm 4068 Nonspecific Twave abnormality 9130 borderline ECG Compared to ECG 11/08/2021 18:51:04 No significant changes Electronically Signed On 03-21-2024 22:33:47 EST by JIMMIE WALKER
[2024-03-20 12:53] VITALS: BP 134/92; PULSE 88; O2SAT 96
== END 2024-03-20 12:54 | disposition home or self-care (01) ==
PROVIDERS: Emergency Provider Emergency Medicine; PCP Internal Medicine
DX: R79.89 Other specified abnormal findings of blood chemistry (principal); E83.42 Hypomagnesemia; E87.6 Hypokalemia
CPT/HCPCS: 36415; 80048; 93005; 99283

== ENCOUNTER 2024-09-27 06:24 | Outpatient (OUT) | payer OTHER, SELFPAY ==
--- OUTSIDE RECORDS SUMMARY | 2024-09-27 06:30 | XMS_ITS | CCD ---
Author Organization [facility] Care Team Providers Care 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 Name Role Phone OSINOWO, OSIYEMI Unavailable Unavailable [...] Shaikh Alvarez MD Primary Care Provider MD Carlos Johnson Attending Provider [phone] MD Eva Alvarez Primary Care Provider Chuck DIRECTOR SALES AND MARKETING-C, Nida Israel Attending Unavailable Chuck YOSTCNida Primary Care Unavailable Shaikh Alvarez MD Primary Care Provider [phone] Asaad, Imad Attending Unavailable Shaikh Alvarez Primary Care Unavailable Asaad, Imad Admitting Unavailable Shaikh Alvarez Primary Care Unavailable Mally, Bhavesh Admitting Unavailable MallyToroy Attending Unavailable Asaad, Imad Admitting Unavailable Asaad, Imad Attending Unavailable Shaikh Alvarez Primary Care Unavailable Asaad, Imad Attending Unavailable Shaikh Alvarez Primary Care Unavailable Asaad, Imad Admitting Unavailable SHADE ROE Attending Unavailable JEERMIAH MERRITT Attending Unavailable SHAIKH ALVAREZ Referring Unavailable OSVALDO LEE Attending Unavailable SHAIKH ALVAREZ Referring Unavailable Medications Current Medications Medication Drug Class(es) Dates Sig (Normalized) Sig (Original) aMILoride hydrochloride 5 mg oral tablet (20 sources) Potassium-sparin g Diuretic Start: 07-18-2023 take 10 mg by mouth twice daily Amiloride Active 10 MG PO Twice daily July 18, 2023 12:00am take 2 tablets by mouth in the m orning aMILoride (Midamor) 5 MG tablet Take 10 mg by mouth in the morning and 10 mg before bedtime. Active take [address] [facility] every twelve hours magnesium chloride 535 mg delayed release oral tablet (6 sources) Start: 11-26-2022 take 2 tablets by mouth in the morning Slow Magnesium/Calcium 70-117 MG tablet delayed-release Take 2 tablets by mouth in the morning and 2 tablets before bedtime. 11/26/2022 Active Start: 12-25-2018 Slow Magnesium /Calcium [...] chloride 20 meq extended release oral tablet (20 sources) Start: 07-18-2023 take 6 tablets by mouth twice daily Potassium Chloride Active 0 PO Twice daily July 18, 2023 12:00am 6 tablets orally twice daily; Start: 11-25-2022 potassium chlo ride CR (K-Tab) 20 MEQ ER tablet 11/25/2022 Active take 6 tablets by mo ut every twelve hours Potassium Chloride ER 20 MEQ 6 tablets Orally bid for 90 day(s) Active take [address] [facility] every twelve hours predniSONE 20 mg oral [...] Classification Problem Date Documented Da te Episodic/Chronic Contraceptive and procreative management (1 source) Encounter for fertility testing; Translations: [Encounter for fertility testing] Onset: 03-31-2024 Episodic Diseases of white blood cells (16 [...] Diarrhea; Translations: [Diarrhea, unspecified] 07-18-2023 Episodic Other liver diseases (2 sources) Raised cardiac enzyme or marker; Translations: [Other nonspecific abnormal serum enzyme levels] Episodic Other nutritional; endocrine; and metabolic disorders (15 sources) Gitelman syndrome; 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 [...] nutritional; endocrine; and metabolic disorders (4 sources) Disorder of magnesium metabolism; Translations: [Disorders of magnesium metabolism, 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 06-16-2023 Chronic Other screening for suspected conditions (not mental disorders or infectious disease) (4 sources) Encounter for screening for diabetes mellitus; Translations: [ENCOUNTER FOR SCREENING FOR DM] Onset: 06-23-2022 Episodic Other upper respiratory disease (4 sources) Seasonal allergic rhinitis; Translations: [Other seasonal [...] [Unspecified abdominal pain] Onset: 07-23-2023 07-18-2023 Episodic Intestinal infection (2 sources) 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, biovar cholerae; Translations: [CHOLERA DUE TO VIBRIO CHOLERAE 01, BIOVAR CHOLERAE] Onset: 07-22-2017 Episodic Nausea and vomiting (1 source) Nausea with vomiting, unspecified; Translations: [NAUSEA WITH VOMITING UNSPECIFIED] Onset: 01-28-2022 Episodic Nonspecific chest pain (6 sources) Atypical chest pain; Translations: [Other chest pain] Onset: 11-08-2021 Episodic Other aftercare (1 source) Other prison (current) drug therapy; Translations: [OTH AUTO BODY MAN CURRENT DRUG THERAPY] Onset: 10-14-2021 Episodic Other gastrointestinal disorders (1 source) Diarrhea, unspecified; Translations: [Diarrhea, unspecified] Onset: 07-23-2023 Episodic Other liver diseases (1 source) Abnormal levels of other serum enzymes; Translations: [ABNORMAL LEVELS OTHER SERUM ENZYMES] Onset: 11-11-2021 Episodic Other male genital disorders (1 source) Male infertility, unspecified; Translations: [MALE INFERTILITY UNSPECIFIED] Onset: 01-28-2022 Episodic Other non-traumatic joint disorders (6 sources) Pain in right shoulder; Translations: [Pain in joint, shoulder region] Onset: 06-16-2023 06-16-2023 Episodic Residual codes; unclassified (1 source) Procedure [...] Test Name Value Interpretation Reference Range Facility Semen Analysis, Fertilityon 03-31-2024 Debris/Round Cells Many Normal [facility] Comment on above: Order Comment: Metho d of Collection:: Masturbation Has the patient had a vasectomy?: N Type of Specimen Container:: Sterile Container Abstinence Period:: 7 DAYS Kept at body temperature?: Y Any Collection or Transport Problems?: N/A Performed By: #### S EMCOMP #### [facility] [address] [place] [address] [place] Immotile Sperm 38 % Normal [facility] Comment on above: Order Comment: Metho d of Collection:: Masturbation Has the patient had a vasectomy?: N Type of Specimen Container:: Sterile Container Abstinence Period:: 7 DAYS Kept at body temperature?: Y Any Collection or Transport Problems?: N/A Performed By: #### S EMCOMP #### [place] [address] [place] Non-Progression Sperm Motili 6 % Normal [facility] Comment on above: Order Comment: Metho d of Collection:: Masturbation Has the patient had a vasectomy?: N Type of Specimen Container:: Sterile Container Abstinence Period:: 7 DAYS Kept at body temperature?: Y Any Collection or Transport Problems?: N/A Performed By: #### S EMCOMP #### [address] Normal Sperm Morphology 12.0 % Normal >=4.0 [facility] Comment on above: Order Comment: Metho d of Collection:: Masturbation Has the patient had a vasectomy?: N Type of Specimen Container:: Sterile Container Abstinence Period:: 7 DAYS Kept at body temperature?: Y Any Collection or Transport Problems?: N/A Performed By: #### S EMCOMP #### [facility] [address] [place] [address] [place] Rapid Progression Sperm Motili 56 % Normal [facility] Comment on above: Order Comment: Metho d of Collection:: Masturbation Has the patient had a vasectomy?: N Type of Specimen Container:: Sterile Container Abstinence Period:: 7 DAYS Kept at body temperature?: Y Any Collection or Transport Problems?: N/A Performed By: #### S EMCOMP #### [address] Semen Appearance Normal Normal Normal [facility] Comment on above: Order Comment: Metho d of Collection:: Masturbation Has the patient had a vasectomy?: N Type of Specimen Container:: Sterile Container Abstinence Period:: 7 DAYS Kept at body temperature?: Y Any Collection or Transport Problems?: N/A Performed By: #### S EMCOMP #### [address] Semen Comment . Normal [facility] Comment on above: Order Comment: Metho d of Collection:: Masturbation Has the patient had a vasectomy?: N Type of Specimen Container:: Sterile Container Abstinence Period:: 7 DAYS Kept at body temperature?: Y Any Collection or Transport Problems?: N/A Result Comment: No A bnormal specimen characteristics noted. PERFORMED BY: [place] [address] PATHOLOGIST JUNIOR ARCHITECT YOAV DE LEÓN M.D. Performed By: #### S EMCOMP #### [address] Semen Liquefaction Abnormal Critically abnormal <=60 min [facility] Comment on above: Order Comment: Metho d of Collection:: Masturbation Has the patient had a vasectomy?: N Type of Specimen Container:: Sterile Container Abstinence Period:: 7 DAYS Kept at body temperature?: Y Any Collection or Transport Problems?: N/A Performed By: #### S EMCOMP #### [address] Semen pH 8.5 Normal >=7.2 [facility] Comment on above: Order Comment: Metho d of Collection:: Masturbation Has the patient had a vasectomy?: N Type of Specimen Container:: Sterile Container Abstinence Period:: 7 DAYS Kept at body temperature?: Y Any Collection or Transport Problems?: N/A Performed By: #### S EMCOMP #### [address] Semen Viscosity Abnormal Critically abnormal Normal [facility] Comment on above: Order Comment: Metho d of Collection:: Masturbation Has the patient had a vasectomy?: N Type of Specimen Container:: Sterile Container Abstinence Period:: 7 DAYS Kept at body temperature?: Y Any Collection or Transport Problems?: N/A Performed By: #### S EMCOMP #### [address] Semen Volume 4.5 mL Normal >=1.5 [facility] Comment on above: Order Comment: Metho d of Collection:: Masturbation Has the patient had a vasectomy?: N Type of Specimen Container:: Sterile Container Abstinence Period:: 7 DAYS Kept at body temperature?: Y Any Collection or Transport Problems?: N/A Performed By: #### S EMCOMP #### [place] [address] [place] Sperm Concentration 59.3 Normal >=15 [facility] Comment on above: Order Comment: Metho d of Collection:: Masturbation Has the patient had a vasectomy?: N Type of Specimen Container:: Sterile Container Abstinence Period:: 7 DAYS Kept at body temperature?: Y Any Collection or Transport Problems?: N/A Performed By: #### S EMCOMP #### [address] Total Motility ([place]+DIRECTOR SALES AND MARKETING) 62.0 % Normal >=40 ([place]+DIRECTOR SALES AND MARKETING) [facility] Comment on above: Order Comment: Metho d of Collection:: Masturbation Has the patient had a vasectomy?: N Type of Specimen Container:: Sterile Container Abstinence Period:: 7 DAYS Kept at body temperature?: Y Any Collection or Transport Problems?: N/A Performed By: #### S EMCOMP #### [place] [address] [place] WBC Concent, Semen <1.0 Normal <1.0 [facility] Comment on above: Order Comment: Metho d of Collection:: Masturbation Has the patient had a vasectomy?: N Type of Specimen Container:: Sterile Container Abstinence Period:: 7 DAYS Kept at body temperature?: Y Any Collection or Transport Problems?: N/A Performed By: #### S EMCOMP #### [facility] [address] ALL MAGNESIUMon 03-20-2024 Magnesium [Mass/Vol] 1.4 mg/dL Low 1.8 - 2 .4 mg/dL [facility] ALL RENAL FUNCTION PANELon 1 05-20-2023 Albumin [Mass/Vol] 3.6 g/dL 3.4 - 5.0 g/dL [facility] Anion gap [Moles/Vol] 11.9 mmol/L NO [facility] Calcium [Mass/Vol] 9.2 mg/dL 8.5 - 10. 1 mg/dL [facility] Chloride [Moles/Vol] 99 mmol/L 98 - 10 7 mmol/L [facility] CO2 [Moles/Vol] 31.9 mmol/L 21.0 - 32.0 mmol/L [facility] Creatinine [Mass/Vol] 0.82 mg/dL 0.70 - 1.30 mg/dL [facility] GFR/1.73 sq M.predicted CKD-EPI (S/P/Bld) [Vol rate/Area] >60 >=60 mL/min/1.73 m 2 [facility] Glucose [Mass/Vol] 98 mg/dL 74 - 106 mg/dL [facility] Phosphate [Mass/Vol] 2.6 mg/dL 2.6 - 4 .7 mg/dL [facility] Potassium [Moles/Vol] 2.8 mmol/L Critically low 3.5 - 5.1 mmol/L [facility] Comment on above: RESULTS CALLED TO ISAC AMOR Sodium [Moles/Vol] 140 mmol/L 136 - 145 mmol/L [facility] TB EGFR-NON AF EGYPTIAN >60 >=60 mL/min/1.73 m 2 [facility] Urea nitrogen [Mass/Vol] 12 mg/dL 7.0 - 18.0 mg/dL [facility] Urea nitrogen/Creatinine [Mass ratio] 14.6 mg/mg [facility] CBC WITH PLATELET NO DI FFERENTIALon 03-20-2024 Erythrocyte distribution width (RBC) [Ratio] 12.6 % 11.0 - 15.0 % [facility] Hematocrit (Bld) [Volume fraction] 45.8 % 42.0 - 54.0 % [facility] Hemoglobin (Bld) [Mass/Vol] 15.6 g/dL 14.0 - 18.0 g/dL [facility] Interpretation and review of laboratory results Abnormal [facility] MCH (RBC) [Entitic mass] 27.3 pg 25.9 - 34.0 [facility] [Mass/Vol] 34.1 g/dL 29.9 - 35.2 g/dL [facility] MCV (RBC) [Entitic vol] 80.2 fL 80.0 - 94.0 fL [facility] Platelet mean volume (Bld) [Entitic vol] 8.7 fL Low 9.5 - 13.5 fL [facility] TB PLT [address] [facility] RBC 5.71 [facility] TB WBC 8.7 [facility] HMHP URINALYSIS, WITH MICROS COPICon 03-20-2024 BACTERIA URINE NONE SEEN NONE SEEN #/HPF [facility] BILIRUBIN URINE Negative NEGATIVE [facility] BLOOD URINE Negative NEGATIVE [facility] CAST SEEN? NONE SEEN NONE SEEN #/LPF [facility] Clarity (U) CLEAR CLEAR [facility] Color (U) LT. YELLOW YELLOW [facility] CRYSTALS SEEN? None Seen None Seen #/HPF [facility] GLUCOSE URINE UA Negative NEGATIVE mg/dL [facility] Ketones Ql (U) Negative NEGATIVE mg/dL [facility] Leukocyte esterase Test strip Ql (U) Negative NEGATIVE [facility] MUCUS URINE NONE SEEN NONE SEEN [facility] NITRITE URINE Negative NEGATIVE [facility] pH (U) 7.5 [pH] 5.0 - 9.0 [facility] PROTEIN URINE Negative NEG/TRACE mg/dL [facility] SPECIFIC GRAVITY URINE 1.015 1.005 - 1.025 [facility] SQUAMOUS EPITHELIAL CELL URINE NONE SEEN NONE/RARE #/LPF [facility] RBC 0-2 [facility] WBC NONE SEEN NONE SEEN #/HPF [facility] UROBILINOGEN URINE 0.2 EU/dL 0.2 - 1.0 EU/dL [facility] No Panel Informationon 03-20 Interpretation and review of laboratory results Abnormal [facility] PR[facility] CREAT RA TIOon 03-20-2024 CREATININE URINE RANDOM 89.49 mg/dL 20.0 0 - 300.00 mg/dL [facility] Interpretation and review of laboratory results Abnormal [facility] Protein (U) [Mass/Vol] 13.6 mg/dL High NINF - 11.9 mg/dL [facility] PROTEIN CREATININE RATIO URINE 0.15 [facility] Laboratory - Urinalysison Protein (U) [Mass/Vol] 20.3 mg/dL High <=11.9 [facility] Protein [Mass/time] in 24 ho ur Urineon 11-21-2023 Protein (24H U) [Mass/Time] 284.2 mg/24hr High <=149.1 [facility] Urine volume measurementon 0 11-21-2023 Specimen volume (U) 1400 mL/24hr [facility] Albumin [Mass/volume] in Ser um or Plasmaon 11-19-2023 Albumin [Mass/Vol] 3.7 g/dL 2.9-4.4 [facility] IgA [Mass/volume] in Serum o r Plasmaon 11-19-2023 IgA [Mass/Vol] 276 mg/dL 90-386 [facility] IgG [Mass/volume] in Serum o r Plasmaon 11-19-2023 IgG [Mass/Vol] 1297 mg/dL 603-1613 [facility] IgM [Mass/volume] in Serum o r Plasmaon 11-19-2023 IgM [Mass/Vol] 103 mg/dL 20-172 [facility] Immunofixation for Urineon 0 11-19-2023 Interpretation Immunofixation (U) [Interp] Comment . [facility] Comment on above: No monoclonality det ected.Performed at: - [facility] [id number] Director: Sander Morel PhD, Phone: [phone] Immunoglobulin light chains. kappa.free [Mass/volume] in Serumon 11-19-2023 Immunoglobulin light chains.kappa.free (S) [Mass/Vol] 14.7 mg/L 3.3-19.4 [facility] Immunoglobulin light chains. kappa.free/Immunoglobulin light chains.lambda.free [Debby 11-19-2023 Immunoglobulin light chains.kappa.free/Immun oglobulin light chains.lambda.free (S) [Mass ratio] 0.86 0.26-1.65 [facility] Comment on above: Performed at: - [facility] [address] [id number] Director: Sander Morel PhD, Phone: [phone] Immunoglobulin light chains. lambda.free [Mass/volume] in Serum or Plasmaon 11-19-2023 Immunoglobulin light chains.lambda.free [Mass/Vol] 17.1 mg/L 5.7-26.3 [facility] Laboratory - Chemistry and C hemistry - challengeon 11-19-2023 Bilirubin Ql (U) Negative NEGATIVE [facility] Glucose (U) [Mass/Vol] Negative NEGATIVE [facility] Ketones Ql (U) Negative NEGATIVE [facility] pH (U) 6.0 [pH] 5.0-9.0 [facility] Specific gravity (U) [Rel density] 1.025 1.005-1.025 [facility] Urobilinogen Qn (U) 0.2 {Felix'U}/dL 0.2-1.0 [facility] Laboratory - Specimen inform ationon 11-19-2023 Appearance (U) CLEAR CLEAR [facility] Color (U) YELLOW YELLOW [facility] Laboratory - Urinalysison Leukocyte esterase Test strip Ql (U) Negative NEGATIVE [facility] Mucus Ql (Urine sed) NONE SEEN NONE SEEN [facility] Nitrite Ql (U) Negative NEGATIVE [facility] Protein (U) [Mass/Vol] 24.7 mg/dL High <=11.9 [facility] Protein Ql (U) Negative NEG/TRACE [facility] Myeloperoxidase Ab [Units/vo lume] in Serum by Immunoassayon 11-19-2023 Myeloperoxidase Ab IA Qn (S) <0.2 units 0.0-0.9 [facility] No Panel Informationon 11-18 Atypical p-ANCA <1:20 titer Neg:<1:20 [facility] Comment on above: The atypical pANCA p attern has been observed in asignificant percentage of patients with ulcerative colitis,primary sclerosing cholangitis and autoimmune hepatitis.Performed at: BN - [facility] [address] [id number] Director: Ronaldo Luo MD, Phone: [phone] at: - [facility] [address] [id number] Director: Sander Morel PhD, Phone: [phone] Perinuclear ANCA (p-ANCA) Antibody <1:20 titer Neg:<1:20 [facility] Comment on above: The presence of posi [...] only by EIA. Ref. AM J Clin [id number];111:[id number]. Protein Electrophoresis M-Jhonatan Not Observed g/dL Not Observed [facility] Protein Electrophoresis Note Comment . [facility] Comment on above: Protein electrophore sis scan will follow via computer,mail, or ethologist delivery. Urine Bacteria NONE SEEN #/HPF NONE SEEN [facility] Urine Occult Blood TRACE-I NEGATIVE [facility] Urine Other Casts NONE SEEN #/LPF NONE SEEN [facility] Urine Other Crystals None Seen #/HPF None Seen [facility] Urine Random Creatinine 151.16 mg/dL 20.0 0-300.0 0 [facility] Urine RBC 0-2 #/HPF 0-2 [facility] Urine Squamous Epithelial Cells RARE #/LPF NONE/RARE [facility] Urine WBC 0-2 #/HPF Abnormal NONE SEEN [facility] Nuclear Ab (S) [Titer]on Anti-Nuclear Antibody Screen Negative . [facility] Comment on above: Negative <1:80 Borde rline 1:80 Positive >1:80ICAP nomenclature: AC-0For more information about Hep-2 cell patterns useANApatterns.org, the official website for theInternational Consensus on Antinuclear Antibody (CRISTEL)Patterns (ICAP).Performed at: [id number] [place], [place] [id number] Director: Sander Morel PhD, Phone: [phone] Negative <1:80 Fausto rodriguez 1:80 Positive >1:80ICAP nomenclature: AC-0For more information about Hep-2 cell patterns useABRAZO ARROWHEAD CAMPUSpatter.org, the official website for theInternational Consensus on Antinuclear Antibody (CRISTEL)Patterns (ICAP).Performed at: [employer] [id number] [place], [place] [id number] Director: Sander Morel PhD, Phone: [phone] Protein [Mass/volume] in Ser um or Plasmaon 11-19-2023 Protein [Mass/Vol] 7.3 g/dL 6.0-8.5 [facility] Proteinase 3 Ab [Units/volum e] in Serum by Immunoassayon 11-19-2023 Proteinase 3 Ab IA Qn (S) <0.2 units 0.0-0.9 [facility] Serum classic neutrophil cyt oplasmic antibody titer by immunofluorescenceon 11-19-2023 Neutrophil cytoplasmic Ab.classic IF (S) [Titer] <1:20 titer Neg:<1:20 [facility] Serum globulin measurement ( mass/volume)on 11-19-2023 Globulin (S) [Mass/Vol] 3.6 g/dL 2.2-3.9 F [facility] Serum or plasma albumin/glob ulin mass ratioon 11-19-2023 Albumin/Globulin [Mass ratio] 1.1 {ratio} 0.7-1.7 [facility] Serum or plasma alpha 1 glob ulin measurement by electrophoresis (mass/volume)on 11-19-2023 Alpha 1 globulin Elph [Mass/Vol] 0.3 g/dL 0.0-0.4 [facility] Serum or plasma alpha 2 glob ulin measurement by electrophoresis (mass/volume)on 11-19-2023 Alpha 2 globulin Elph [Mass/Vol] 0.9 g/dL 0.4-1.0 [facility] Serum or plasma beta globuli n measurement by electrophoresis (mass/volume)on 11-19-2023 Beta globulin Elph [Mass/Vol] 1.2 g/dL 0.7-1.3 [facility] Serum or plasma gamma globul in measurement by electrophoresis (mass/volume)on 11-19-2023 Gamma globulin Elph [Mass/Vol] 1.3 g/dL 0.4-1.8 [facility] Serum or plasma immunoelectr ophoresis interpretationon 11-19-2023 Interpretation IEP [Interp] Comment . [facility] Comment on above: No monoclonality det ected. Urine protein/creatinine rat ioon 11-19-2023 Protein/Creatinine (U) [Ratio] 0.16 [facility] Erythrocyte distribution wid th Auto (RBC) [Ratio]on 10-26-2023 Erythrocyte distribution width (RBC) [Ratio] 12.7 % 11.0-15.0 [facility] Estimated glomerular filtrat ion rate (GFR) non- Americanon 10-26-2023 GFR/1.73 sq M.predicted among non-blacks MDRD (S/P/Bld) [Vol rate/Area] mL/min/{1.73_m2} >=60 [facility] Hematocrit Auto (Bld) [Volum e fraction]on 10-26-2023 Hematocrit (Bld) [Volume fraction] 45.0 % 42.0-54.0 [facility] Hemoglobin [Mass/volume] in Bloodon 10-26-2023 Hemoglobin (Bld) [Mass/Vol] 15.4 g/dL 14.0-18.0 [facility] Laboratory - Chemistry and C hemistry - challengeon 10-26-2023 Albumin [Mass/Vol] 3.7 g/dL 3.4-5.0 [facility] Calcium [Mass/Vol] 8.9 mg/dL 8.5-10.1 [facility] Chloride [Moles/Vol] 99 mmol/L 98-107 [facility] CO2 [Moles/Vol] 31.1 mmol/L 21.0-32.0 [facility] Creatinine [Mass/Vol] 0.83 mg/dL 0.70-1.30 [facility] GFR/1.73 sq M.predicted MDRD (S/P/Bld) [Vol rate/Area] mL/min/{1.73_m2} >=60 [facility] Glucose [Mass/Vol] 105 mg/dL 74-106 [facility] Magnesium [Mass/Vol] 1.6 mg/dL Low 1.8-2.4 [facility] Potassium [Moles/Vol] 3.2 mmol/L Low 3.5-5.1 [facility] Sodium [Moles/Vol] 139 mmol/L 136-145 [facility] Urea nitrogen [Mass/Vol] 11.0 mg/dL 7.0-18.0 [facility] Urea nitrogen/Creatinine [Mass ratio] 13.3 mg/mg [facility] Bilirubin Ql (U) Negative NEGATIVE [facility] Glucose (U) [Mass/Vol] Negative NEGATIVE [facility] Ketones Ql (U) Negative NEGATIVE [facility] pH (U) 7.5 [pH] 5.0-9.0 [facility] Specific gravity (U) [Rel density] >=1.030 Abnormal 1.005-1.025 [facility] Urobilinogen Qn (U) 0.2 {Felix'U}/dL 0.2-1.0 [facility] Laboratory - Specimen inform ationon 10-26-2023 Appearance (U) CLEAR CLEAR [facility] Color (U) LT. YELLOW YELLOW [facility] Laboratory - Urinalysison Leukocyte esterase Test strip Ql (U) Negative NEGATIVE [facility] Mucus Ql (Urine sed) NONE SEEN NONE SEEN [facility] Nitrite Ql (U) Negative NEGATIVE [facility] Protein (U) [Mass/Vol] 807.8 mg/dL High <=11.9 [facility] Comment on above: UR TP RANDOM DILUTED AND REPEATED FOR VERIFICATION--- 10/26/23 1402 ---Ur TP Random previously reported as: 807.8 H mg/dL Protein Ql (U) 100 mg/dL Abnormal NEG/TRACE [facility] Leukocytes [#/volume] correc augusto for nucleated erythrocytes in Blood by Automated counon 10-26-2023 WBC corrected for nucl RBC Auto (Bld) [#/Vol] 10.5 10 3/uL 4.0-11.0 [facility] MCH Auto (RBC) [Entitic mass ]on 10-26-2023 MCH (RBC) [Entitic mass] 27.2 pg 25.9-34.0 [facility] MCHC Auto (RBC) [Mass/Vol]on 10-26-2023 MCHC (RBC) [Mass/Vol] 34.2 g/dL 29.9-35.2 [facility] MCV Auto (RBC) [Entitic vol] on 10-26-2023 MCV (RBC) [Entitic vol] 79.5 fL Low 80.0-94.0 [facility] No Panel Informationon 10-25 Phosphorus Level 2.8 mg/dL 2.6-4.7 [facility] Urine Bacteria TRACE #/HPF Abnormal NONE SEEN [facility] Urine Culture Reflexed NO [facility] Urine Occult Blood Negative NEGATIVE [facility] Urine Other Casts NONE SEEN #/LPF NONE SEEN [facility] Urine Other Crystals None Seen #/HPF None Seen [facility] Urine Random Creatinine 109.34 mg/dL 20.0 0-300.0 0 [facility] Urine RBC 2-5 #/HPF Abnormal 0-2 [facility] Urine Sperm SEEN [facility] Urine Squamous Epithelial Cells RARE #/LPF NONE/RARE [facility] Urine WBC 0-2 #/HPF Abnormal NONE SEEN [facility] Platelet mean volume Auto (B ld) [Entitic vol]on 10-26-2023 Platelet mean volume (Bld) [Entitic vol] 8.9 fL Low 9.5-13.5 [facility] Platelets Auto (Bld) [#/Vol] on 10-26-2023 Platelets (Bld) [#/Vol] 376 10 3/uL 150-450 [facility] RBC Auto (Bld) [#/Vol]on RBC (Bld) [#/Vol] 5.66 10 6/uL 4.70-6.10 [facility] Serum or plasma anion gap de terminationon 10-26-2023 Anion gap [Moles/Vol] 12.1 mmol/L [facility] Urine protein/creatinine rat ioon 10-26-2023 Protein/Creatinine (U) [Ratio] 7.39 [facility] Erythrocyte distribution wid th Auto (RBC) [Ratio]on 10-06-2023 Erythrocyte distribution width (RBC) [Ratio] 13.1 % 11.0-15.0 [facility] Estimated glomerular filtrat ion rate (GFR) non- Americanon 10-06-2023 GFR/1.73 sq M.predicted among non-blacks MDRD (S/P/Bld) [Vol rate/Area] mL/min/{1.73_m2} >=60 [facility] Hematocrit Auto (Bld) [Volum e fraction]on 10-06-2023 Hematocrit (Bld) [Volume fraction] 46.8 % 42.0-54.0 [facility] Hemoglobin [Mass/volume] in Bloodon 10-06-2023 Hemoglobin (Bld) [Mass/Vol] 15.7 g/dL 14.0-18.0 [facility] Laboratory - Chemistry and C hemistry - challengeon 10-06-2023 Albumin [Mass/Vol] 3.7 g/dL 3.4-5.0 [facility] Calcium [Mass/Vol] 8.9 mg/dL 8.5-10.1 [facility] Chloride [Moles/Vol] 102 mmol/L 98-107 [facility] CO2 [Moles/Vol] 31.8 mmol/L 21.0-32.0 [facility] Creatinine [Mass/Vol] 0.81 mg/dL 0.70-1.30 [facility] GFR/1.73 sq M.predicted MDRD (S/P/Bld) [Vol rate/Area] mL/min/{1.73_m2} >=60 [facility] Glucose [Mass/Vol] 95 mg/dL 74-106 [facility] Magnesium [Mass/Vol] 1.5 mg/dL Low 1.8-2.4 [facility] Potassium [Moles/Vol] 4.3 mmol/L 3.5-5.1 [facility] Sodium [Moles/Vol] 140 mmol/L 136-145 [facility] Urea nitrogen [Mass/Vol] 9.0 mg/dL 7.0-18.0 [facility] Urea nitrogen/Creatinine [Mass ratio] 11.1 mg/mg [facility] Leukocytes [#/volume] correc augusto for nucleated erythrocytes in Blood by Automated counon 10-06-2023 WBC corrected for nucl RBC Auto (Bld) [#/Vol] 6.8 10 3/uL 4.0-11.0 [facility] MCH Auto (RBC) [Entitic mass ]on 10-06-2023 MCH (RBC) [Entitic mass] 27.4 pg 25.9-34.0 [facility] MCHC Auto (RBC) [Mass/Vol]on 10-06-2023 MCHC (RBC) [Mass/Vol] 33.5 g/dL 29.9-35.2 [facility] MCV Auto (RBC) [Entitic vol] on 10-06-2023 MCV (RBC) [Entitic vol] 81.8 fL 80.0-94.0 [facility] No Panel Informationon 10-05 Phosphorus Level 2.3 mg/dL Low 2.6-4.7 [facility] Platelet mean volume Auto (B ld) [Entitic vol]on 10-06-2023 Platelet mean volume (Bld) [Entitic vol] 9.0 fL Low 9.5-13.5 [facility] Platelets Auto (Bld) [#/Vol] on 10-06-2023 Platelets (Bld) [#/Vol] 349 10 3/uL 150-450 [facility] RBC Auto (Bld) [#/Vol]on RBC (Bld) [#/Vol] 5.72 10 6/uL 4.70-6.10 [facility] Serum or plasma anion gap de terminationon 10-06-2023 Anion gap [Moles/Vol] 10.5 mmol/L [facility] Félix 09-01-2023 L Specimen: [id number] Received: 09/02/23 Status: SOUT Req Num: [id number] Spec Type: Surgical Subm Dr: Carlos Johnson MD Tissues: A Duodenum - Biopsy (DUODENUM BX) B GASTRIC FOR HP (GASTRIC HP) C Esophagus Biopsy (ESOPHAGEAL BX) Procedures: HE/6, Gross/Micro L4/3, H PYLORI, IHC First AB Age/ Patient Sex Location Account Attending Physician Wood Horn 27/M [id number] Carlos Johnson MD SPEC NUM: [id number] RECD: 09/02/23 STATUS: MICEHLLE JIMENEZ NUM: [id number] ALLEN: 09/01/23- SUBM DR: Carlos Johnson MD ENTERED: 09/02/23 [facility] DR: SPEC TYPE: Surgical DEPT: S [...] cm, entirely submitted in A1. -------- Specimen: [id number] Received: 09/02/23 Status: UDAYMoise De Guzman Num: [id number] Spec Type: Surgical Subm Dr: Carlos Johnson MD Tissues: A Duodenum - Biopsy (DUODENUM BX) B GASTRIC FOR HP (GASTRIC HP) C Esophagus Biopsy (ESOPHAGEAL BX) Procedures: HE/6, Gross/Micro L4/3, H PYLORI, IHC First AB -------- Patient: Wood Horn [id number] (Continued) -------- Specimen: [id number] Received: 09/02/23 (Continued) Gross Description (Continued) Signed (signature on file) Jaylen Caputo MD 09/06/231641 -------- Specimen: [id number] Received: 09/02/23 Status: MICHELLE De Guzman Num: [id number] Spec Type: Surgical Subm Dr: Carlos Johnson MD Tissues: A Duodenum - Biopsy (DUODENUM BX) B GASTRIC FOR HP (GASTRIC HP) C Esophagus Biopsy (ESOPHAGEAL BX) Procedures: HE/6, Gross/Micro L4/3, H PYLORI, IHC First AB -------- Patient: Wood Horn [id number] (Continued) -------- Specimen: [id number] Received: 09/02/23 (Continued) Gross Description (Continued) B. [...] H. pylori, rule out EOE CPT Codes 86196h2, 46853 -------- -------- Specimen: [id number] Received: 09/02/23 Status: MICHELLE De Guzman Num: [id number] Spec Type: Surgical Subm Dr: Carlos Johnson MD Tissues: A Duodenum - Biopsy (DUODENUM BX) B GASTRIC FOR HP (GASTRIC HP) C Esophagus Biopsy (ESOPHAGEAL BX) Procedures: HE/6, Gross/Micro L4/3, H PYLORI, IHC First AB -------- Patient: E[place]at[place] Jennifer [id number] (Continued) -------- Signed (signature on file) Jaylen Caputo MD 09/06/23 1642 Normal [facility] Magnesium [Mass/volume] in S joon or PlasmaOrdered By: Carlos Johnson on 09-01-2023 Magnesium [Mass/Vol] 1.1 mg/dL Low 1.9-2.7 [facility] Comment on above: Result Comment: PERF ORMED BY: [facility] [address] [place] [address] PATHOLOGIST JUNIOR ARCHITECT LIEN TAN M.D. Performed By: #### Stanley Schuster #### [facility] [address] Potassium [Moles/volume] in Serum or PlasmaOrdered By: Carlos Johnson on 04-25-2024 Potassium [Moles/Vol] 3.6 mmol/L Normal 3.5-5.1 [facility] Comment on above: Hemolysis is present at a level that could interfere with the result. Result Comment: Hemo lysis is present at a level that could interfere with the result. Performed By: #### M G, K #### [facility] [address] [place] [address] Arterial blood standard base excess determination by calculationOrdered By: Imad Asaad on 08-18-2023 Base excess standard Calc (BldA) [Moles/Vol] 9 mmol/L -2-3 [facility] Basophil percentageOrdered B y: Imad Asaad on 08-18-2023 Basophil percentage 46.3 mm[Hg] 35-51 [facility] Basophil percentage 36 mm[Hg] 80-105 [facility] Blood carbon dioxide, total measurement by calculation (moles/volume)Ordered By: Imad Asaad on 08-18-2023 CO2 Calc (Bld) [Moles/Vol] 34 mmol/L 23-29 [facility] Blood hemoglobin measurement by calculation (mass/volume)Ordered By: Imad Asaad on 08-18-2023 Hemoglobin (Bld) [Mass/Vol] 16.7 g/dL Normal 12.0-17.0 [facility] Comment on above: Performed By: #### I SABG #### [facility] [address] [place] [address] CT biopsyOrdered By: Imad As aad on 08-18-2023 Hematocrit (Bld) [Volume fraction] 49.0 % Normal 38.0-51.0 [facility] Comment on above: Performed By: #### I SABG #### [facility] [address] [place] [address] Capillary blood glucose ryan urement by glucometer (mass/volume)Ordered By: Imad Asaad on 08-18-2023 Glucose [Mass/Vol] 95 mg/dL Normal 70-105 [facility] Comment on above: Result Comment: PERF ORMED BY: [place] [address] PATHOLOGIST JUNIOR ARCHITECT LIEN TAN M.D. Performed By: #### I SABG #### [address] ISTAT ABGon 08-18-2023 CO2 [Moles/Vol] 34 mmol/L High 23-29 [facility] Comment on above: Performed By: #### I SABG #### [address] ISTAT Base Excess 9 mmol/L High -2 TO 3 [facility] Comment on above: Performed By: #### I SABG #### [address] ISTAT Ionized Calcium 1.14 mol/L Normal 1.12-1.32 [facility] Comment on above: Performed By: #### I SABG #### [address] ISTAT PCO2 46.3 mm[Hg] Normal 35-51 [facility] Comment on above: Performed By: #### I SABG #### [address] ISTAT Ph 7.460 High 7.31-7.45 [facility] Comment on above: Performed By: #### I SABG #### [address] ISTAT PO2 36 mm[Hg] Low 80-105 [facility] Comment on above: Performed By: #### I SABG #### [address] Whole blood bicarbonate ryan urementOrdered By: Imad Asaad on 08-18-2023 HCO3 (Bld) [Moles/Vol] 32.9 mmol/L High 22.0-28.[address] [facility] Comment on above: Performed By: #### I SABG #### [address] Whole blood ionized calcium measurement (moles/volume)Ordered By: Imad Asaad on 08-18-2023 Calcium.ionized (Bld) [Moles/Vol] 1140 mmol/L 1.12-1.32 [facility] Whole blood oxygen saturatio n measurementOrdered By: Imad Asaad on 08-18-2023 Oxygen saturation in Blood 72 % Low 95-98 [facility] Comment on above: Reference ranges ref lect baseline specimens only Result Comment: Refe rence ranges reflect baseline specimens only Performed By: #### I SABG #### [address] Whole blood pHOrdered By: Im ad Asaad on 08-18-2023 pH (Bld) 7.460 Units 7.31-7.45 [facility] Whole blood potassium measur ementOrdered By: Imad Asaad on 08-18-2023 Potassium [Moles/Vol] 2.5 mmol/L Off scale low 3.5-4.9 [facility] Comment on above: Performed By: #### I SABG #### [address] Whole blood sodium measureme ntOrdered By: Imad Asaad on 08-18-2023 Sodium [Moles/Vol] 139 mmol/L Normal 138-146 [facility] Comment on above: Performed By: #### I SABG #### [address] Alanine aminotransferase [En zymatic activity/volume] in Serum or PlasmaOrdered By: Imad Asaad on 07-23-2023 ALT [Catalytic activity/Vol] 30 U/L Normal 7-52 [facility] Comment on above: Performed By: #### C MP, CBC, LIPASE #### [facility] [address] [place] [address] [place] Albumin [Mass/volume] in Ser um or Plasma by Bromocresol green (BCG) dye binding methoOrdered By: Imad Asaad on 07-23-2023 Albumin BCG dye [Mass/Vol] 4.4 g/dL 3.5-5.7 [facility] Alkaline phosphatase [Enzyma tic activity/volume] in Serum or PlasmaOrdered By: Imad Asaad on 07-23-2023 ALP [Catalytic activity/Vol] 87 U/L Normal 34-104 [facility] Comment on above: Performed By: #### C MP, CBC, LIPASE #### [address] Aspartate aminotransferase [ Enzymatic activity/volume] in Serum or PlasmaOrdered By: Imad Asaad on 07-23-2023 AST [Catalytic activity/Vol] 25 U/L Normal 13-39 [facility] Comment on above: Performed By: #### C MP, CBC, LIPASE #### [address] Automated basophil %Ordered By: Imad Asaad on 07-23-2023 Basophils/100 WBC (Bld) 0.7 % Normal . [facility] Comment on above: Performed By: #### C MP, CBC, LIPASE #### [address] Automated basophil countOrde red By: Imad Asaad on 07-23-2023 Basophils (Bld) [#/Vol] 0.1 10*3/uL Normal 0.0-0.2 [facility] Comment on above: Result Comment: PERF ORMED BY: [place] [address] PATHOLOGIST JUNIOR ARCHITECT LIEN TAN M.D. Performed By: #### C MP, CBC, LIPASE #### [address] Automated blood monocyte cou ntOrdered By: Imad Asaad on 07-23-2023 Monocytes (Bld) [#/Vol] 0.6 10*3/uL Normal 0.0-0.8 [facility] Comment on above: Performed By: #### C MP, CBC, LIPASE #### [address] Automated eosinophil %Ordere d By: Imad Asaad on 07-23-2023 Eosinophils/100 WBC (Bld) 4.2 % Normal . [facility] Comment on above: Performed By: #### C MP, CBC, LIPASE #### [facility] [address] Automated eosinophil countOr dered By: Imad Asaad on 07-23-2023 Eosinophils (Bld) [#/Vol] 0.4 10*3/uL Normal 0.0-0.45 [facility] Comment on above: Performed By: #### C MP, CBC, LIPASE #### [address] Automated monocyte %Ordered By: Imad Asaad on 07-23-2023 Monocytes/100 WBC (Bld) 6.9 % Normal . [facility] Comment on above: Performed By: #### C MP, CBC, LIPASE #### [address] Automated neutrophil %Ordere d By: Imad Asaad on 07-23-2023 Neutrophils/100 WBC (Bld) 63.9 % Normal . [facility] Comment on above: Performed By: #### C MP, CBC, LIPASE #### [address] Bilirubin.total [Mass/volume ] in Serum or PlasmaOrdered By: Imad Asaad on 07-23-2023 Bilirubin [Mass/Vol] 0.7 mg/dL Normal 0.3-1.0 [facility] Comment on above: Performed By: #### C MP, CBC, LIPASE #### [address] Calcium [Mass/volume] in Ser um or PlasmaOrdered By: Imad Asaad on 07-23-2023 Calcium [Mass/Vol] 9.2 mg/dL Normal 8.6-10.3 [facility] Comment on above: Performed By: #### C MP, CBC, LIPASE #### [address] Carbon dioxide, total [Moles /volume] in Serum or PlasmaOrdered By: Imad Asaad on 07-23-2023 CO2 [Moles/Vol] 34.0 mmol/L High 21.0-31.0 [facility] Comment on above: Performed By: #### C MP, CBC, LIPASE #### [address] Chloride [Moles/volume] in S joon or PlasmaOrdered By: Carlos Johnson on 07-23-2023 Chloride [Moles/Vol] 98 mmol/L Normal 98-107 [facility] Comment on above: Performed By: #### C MP, CBC, LIPASE #### [address] Complete Blood Count Auto Di ffon 07-23-2023 Mean Corpuscular HGB Conc 34.6 g/dL Normal 32.5-35.6 [facility] Comment on above: Performed By: #### C MP, CBC, LIPASE #### [address] NRBC% 0.0 /100{WBC} Normal 0-0.5 [facility] Comment on above: Performed By: #### C MP, CBC, LIPASE #### [address] Comprehensive Metabolic Pane félix 07-23-2023 Albumin [Mass/Vol] 4.4 g/dL Normal 3.5-5.7 [facility] Comment on above: Performed By: #### C MP, CBC, LIPASE #### [address] GFR/1.73 sq M.predicted MDRD (S/P/Bld) [Vol rate/Area] mL/min/{1.73_m2} Normal [facility] Comment on above: Performed By: #### C MP, CBC, LIPASE #### [address] Creatinine [Mass/volume] in Serum or PlasmaOrdered By: Carlos Johnson on 07-23-2023 Creatinine [Mass/Vol] 0.73 mg/dL Normal 0.70-1.30 [facility] Comment on above: Performed By: #### C MP, CBC, LIPASE #### [address] Erythrocyte distribution wid th [Ratio] by Automated countOrdered By: Imad Asaad on 07-23-2023 Erythrocyte distribution width (RBC) [Ratio] 14.0 % Normal 12.0-14.8 [facility] Comment on above: Performed By: #### C MP, CBC, LIPASE #### [facility] [address] Erythrocytes [#/volume] in B lood by Automated countOrdered By: Imad Asaad on 07-23-2023 RBC (Bld) [#/Vol] 5.46 10*6/uL Normal 3.90-5.60 [facility] Comment on above: Performed By: #### C MP, CBC, LIPASE #### [address] Glucose [Mass/volume] in Ser um or PlasmaOrdered By: Imad Asaad on 07-23-2023 Glucose [Mass/Vol] 92 mg/dL Normal 70-100 [facility] Comment on above: ADA recommended refe rence rangeRandom Glucose Reference Range is dependent on time and content of last meal. Glucose of more than 200 mg/dL in a nonstressed, ambulatory subject supports the diagnosis of Diabetes Mellitus. Result Comment: [place] om Glucose Reference Range is dependent on time and content of last meal. Glucose of more than 200 mg/dL in a nonstressed, ambulatory subject supports the diagnosis of Diabetes Mellitus. ADA recommended reference range Performed By: #### C MP, CBC, LIPASE #### [address] Hematocrit [Volume Fraction] of Blood by Automated countOrdered By: Imad Asaad on 07-23-2023 Hematocrit (Bld) [Volume fraction] 43.7 % Normal 38.8-50.0 [facility] Comment on above: Performed By: #### C MP, CBC, LIPASE #### [address] Hemoglobin [Mass/volume] in BloodOrdered By: Imad Asaad on 07-23-2023 Hemoglobin (Bld) [Mass/Vol] 15.1 g/dL Normal 13.0-17.0 [facility] Comment on above: Performed By: #### C MP, CBC, LIPASE #### [facility] [address] [place] [address] Leukocytes [#/volume] correc augusto for nucleated erythrocytes in Blood by Automated counOrdered By: Imad Asaad on 07-23-2023 WBC corrected for nucl RBC Auto (Bld) [#/Vol] 9.0 10*3/uL 4.1-10.5 [facility] Leukocytes [#/volume] in Blo od by Automated countOrdered By: Imad Asaad on 07-23-2023 WBC (Bld) [#/Vol] 9.0 10*3/uL Normal 4.1-10.5 [facility] Comment on above: Performed By: #### C MP, CBC, LIPASE #### [facility] [address] [place] [address] Lipase [Enzymatic activity/v olume] in Serum or PlasmaOrdered By: Imad Asaad on 07-23-2023 Lipase [Catalytic activity/Vol] 39.0 U/L Normal 11.0-82.0 [facility] Comment on above: Result Comment: PERF ORMED BY: [place] [address] PATHOLOGIST JUNIOR ARCHITECT LIEN TAN M.D. Performed By: #### C MP, CBC, LIPASE #### [facility] [address] [place] [address] [place] Lymphocytes [#/volume] in Bl ood by Automated countOrdered By: Imad Asaad on 07-23-2023 Lymphocytes (Bld) [#/Vol] 2.2 10*3/uL Normal 1.00-4.8 [facility] Comment on above: Performed By: #### C MP, CBC, LIPASE #### [facility] [address] [place] [address] [place] Lymphocytes/100 leukocytes i n Blood by Automated countOrdered By: Imad Asaad on 07-23-2023 Lymphocytes/100 WBC (Bld) 24.3 % Normal . [facility] Comment on above: Performed By: #### C MP, CBC, LIPASE #### [address] MCH [Entitic mass] by Automa augusto countOrdered By: Imad Asaad on 07-23-2023 MCH (RBC) [Entitic mass] 27.7 pg Normal 27.5-35.2 [facility] Comment on above: Performed By: #### C MP, CBC, LIPASE #### [address] MCHC Auto (RBC) [Mass/Vol]Or dered By: Imad Asaad on 07-23-2023 MCHC (RBC) [Mass/Vol] 34.6 g/dL 32.5-35.6 [facility] MCV [Entitic volume] by Auto mated countOrdered By: Imad Asaad on 07-23-2023 MCV (RBC) [Entitic vol] 80.1 fL Low 83.5-101 [facility] Comment on above: Performed By: #### C MP, CBC, LIPASE #### [address] Neutrophils [#/volume] in Bl ood by Automated countOrdered By: Imad Asaad on 07-23-2023 Neutrophils (Bld) [#/Vol] 5.8 10*3/uL Normal 1.8-7.7 [facility] Comment on above: Performed By: #### C MP, CBC, LIPASE #### [address] No Panel InformationOrdered By: Imad Asaad on 07-23-2023 Estimated GFR (CKD-EPI) > 60.0 mL/Min [facility] Creatinine Clearance (Chem N/A [facility] Nucleated erythrocytes [Pres ence] in Blood by Automated countOrdered By: Imad Asaad on 07-23-2023 Nucleated RBC Auto Ql (Bld) 0.0 /100{WBC} 0-0.5 [facility] Platelet mean volume [Entiti c volume] in Blood by Automated countOrdered By: Imad Asaad on 07-23-2023 Platelet mean volume (Bld) [Entitic vol] 7.2 fL Normal 6.6-10.1 [facility] Comment on above: Performed By: #### C MP, CBC, LIPASE #### [address] Platelets [#/volume] in Bloo d by Automated countOrdered By: Imad Asaad on 07-23-2023 Platelets (Bld) [#/Vol] 353 10*3/uL Normal 150-450 [facility] Comment on above: Performed By: #### C MP, CBC, LIPASE #### [address] Potassium [Moles/volume] in Serum or PlasmaOrdered By: Imad Asaad on 07-23-2023 Potassium [Moles/Vol] 2.8 mmol/L Off scale low 3.5-5.1 [facility] Comment on above: Critical Result Call ed to and read back by: HALIMA CHAVEZ at: 07/23/2023 11:41:15 by:[id number] Result Comment: Crit ical Result Called to and read back by: HALIMA CHAVEZ at: 07/23/2023 11:41:15 by:[id number] Performed By: #### C MP, CBC, LIPASE #### [address] Protein [Mass/volume] in Ser um or PlasmaOrdered By: Imad Asaad on 07-23-2023 Protein [Mass/Vol] 7.3 g/dL Normal 6.4-8.9 [facility] Comment on above: Performed By: #### C MP, CBC, LIPASE #### [address] Serum globulin measurement b y calculation (mass/volume)Ordered By: Imad Asaad on 07-23-2023 Globulin (S) [Mass/Vol] 2.9 g/dL Normal [facility] Comment on above: Performed By: #### C MP, CBC, LIPASE #### [address] Serum or plasma albumin/glob ulin mass ratioOrdered By: Imad Asaad on 07-23-2023 Albumin/Globulin [Mass ratio] 1.5 {ratio} Normal [facility] Comment on above: Performed By: #### C MP, CBC, LIPASE #### [address] Serum or plasma anion gap de terminationOrdered By: Imad Asaad on 07-23-2023 Anion gap [Moles/Vol] 11.8 mmol/L Normal 6.0-15.0 [facility] Comment on above: Performed By: #### C MP, CBC, LIPASE #### [address] Sodium [Moles/volume] in Ser um or PlasmaOrdered By: Imad Asaad on 07-23-2023 Sodium [Moles/Vol] 141 mmol/L Normal 136-145 [facility] Comment on above: Performed By: #### C MP, CBC, LIPASE #### [address] US abdomen completeon 2023 US abdomen complete [place] [address] [place] [address] Ultrasound Report Signed Patient: Wood Horn MR#: [id number] : 1995 Acct:[id number] Age/Sex: 27 / M ADM Date: 07/23/23 Loc: Room: Type: [facility] Attending Dr: Carlos Johnson MD Ordering [...] Estuardo Saravia M.D.07/23/2023 10:53 AM Dictation Location: [place] [address] Tech: Marlee Funez Transcribed By: [place] 07/23/23 1053 Dictated By: Estuardo Saravia II, MD 07/23/23 1047 Signed By: 07/23/23 1053 Normal [facility] Urea nitrogen [Mass/volume] in Serum or PlasmaOrdered By: Carlos Johnson on 07-23-2023 Urea nitrogen [Mass/Vol] 13 mg/dL Normal 7-25 [facility] Comment on above: Performed By: #### C MP, CBC, LIPASE #### [address] Magnesiumon 11-25-2022 Magnesium [Mass/Vol] 1.1 mg/dL [place] Other Renal Function Panelon 11-25 Albumin [Mass/Vol] 3.9 g/dL [facility] Other Calcium [Mass/Vol] 8.8 mg/dL [facility] Other Chloride [Moles/Vol] 96 mmol/L [facility] Other CO2 [Moles/Vol] 32.9 mmol/L [facility] Other Creatinine [Mass/Vol] 0.83 mg/dL [facility] Other Glucose [Mass/Vol] 138 mg/dL [facility] Other Phosphate [Mass/Vol] 4.0 mg/dL [facility] [employer] Other Potassium [Moles/Vol] 2.4 mmol/L [facility] [employer] Other Sodium [Moles/Vol] 139 mmol/L [facility] [employer] Other Urea nitrogen [Mass/Vol] 13.0 mg/dL [facility] [employer] Other Renal Function Panel [facility] [employer] Other Renal Function Panel >60 [facility] [employer] Other GLYCOHEMOGLOBIN A1Con 2022 ADA RECOMMENDATION SEE BELOW Normal [facility] Comment on above: Result Comment: ADA RECOMMENDED LIMIT 4.0 - 6.0 ADA THERAPEUTIC TARGET < 7.0 ACTION SUGGESTED > 7.0 Performed By: #### A 1C #### [facility] [address] [place] [address] Dr. Jossue Centeno Glucose [Mass/Vol] 108 mg/dL Normal [facility] Comment on above: Performed By: #### A 1C #### [facility] [address] [address] [address] Jossue Centeno HbA1c (Bld) [Mass fraction] 5.4 % Normal 4.5-6.2 [facility] Comment on above: Performed By: #### A 1C #### [facility] [address] [address] [address] Jossue Centeno CBC AUTO DIFFon 01-27-2022 BASO # 0.1 103/ul Normal 0.0-0.1 [facility] Comment on above: Performed By: #### C BC #### [facility] [address] [place] [address] Dr. Jossue Centeno Basophils/100 WBC (Bld) 0.8 % Normal 0.2-2.0 [facility] Comment on above: Performed By: #### C BC #### [facility] [address] [place] [address] Dr. Jossue Centeno EO # 0.6 103/ul Normal 0.0-0.7 [facility] Comment on above: Performed By: #### C BC #### [facility] [address] [place] [address] Dr. Jossue Centeno Eosinophils/100 WBC (Bld) 5.8 % Normal 0.9-7.0 [facility] Comment on above: Performed By: #### C BC #### [facility] [address] [place] [address] Dr. Jossue Centeno Erythrocyte distribution width (RBC) [Ratio] 12.4 % Normal 11.0-15.0 [facility] Comment on above: Performed By: #### C BC #### [facility] [address] [place] [address] Dr. Jossue Centeno Hematocrit (Bld) [Volume fraction] 47.4 % Normal 42.0-54.0 [facility] Comment on above: Performed By: #### C BC #### [facility] [address] [place] [address] Dr. Jossue Centeno Hemoglobin (Bld) [Mass/Vol] 16.7 g/dL Normal 14.0-18.0 [facility] Comment on above: Performed By: #### C BC #### [facility] [address] [place] [address] Dr. Jossue Centeno IG # 0.02 10e3/ul Normal 0.00-0.03 [facility] Comment on above: Performed By: #### C BC #### [facility] [address] [place] [address] Dr. Jossue Centeno IG % 0.2 % Normal 0.0-0.5 [facility] Comment on above: Performed By: #### C BC #### [facility] [address] [place] [address] Dr. Jossue Centeno LYMPH # 2.2 103/ul Normal 1.2-3.8 [facility] Comment on above: Performed By: #### C BC #### [facility] [address] [place] [address] Dr. Jossue Centeno Lymphocytes/100 WBC (Bld) 23.1 % Normal 20.5-60.0 [facility] Comment on above: Performed By: #### C BC #### [facility] [address] [place] [address] Dr. Jossue Centeno MANUAL DIFF REQ NO Normal [facility] Comment on above: Performed By: #### C BC #### [facility] [address] [place] [address] Dr. Jossue Centeno MCH (RBC) [Entitic mass] 28.2 pg Normal 25.9-34.0 [facility] Comment on above: Performed By: #### C BC #### [facility] [address] [place] [address] Dr. Jossue Centeno MCHC (RBC) [Mass/Vol] 35.2 g/dL Normal 29.9-35.2 [facility] Comment on above: Performed By: #### C BC #### [facility] [address] [place] [address] Dr. Jossue Centeno MCV (RBC) [Entitic vol] 79.9 fL Critically low 80.0-94. 0 [facility] Comment on above: Performed By: #### C BC #### [facility] [address] [place] [address] Dr. Jossue Centeno MONO # 0.7 103/ul Normal 0.3-0.8 [facility] Comment on above: Performed By: #### C BC #### [facility] [address] [place] [address] Dr. Jossue Centeno Monocytes/100 WBC (Bld) 7.6 % Normal 1.7-12.0 [facility] Comment on above: Performed By: #### C BC #### [facility] [address] [place] [address] Dr. Jossue Centeno NEUT # 5.9 103/ul Normal 1.4-6.5 [facility] Comment on above: Performed By: #### C BC #### [facility] [address] [place] [address] Dr. Jossue Centeno Neutrophils/100 WBC (Bld) 62.5 % Normal 43.0-75.0 [facility] Comment on above: Performed By: #### C BC #### [facility] [address] [place] [address] Dr. Jossue Centeno Platelet mean volume (Bld) [Entitic vol] 8.5 fL Critically low 9.5-13.5 [facility] Comment on above: Performed By: #### C BC #### [facility] [address] [place] [address] Dr. Jossue Centeno PLT 335 103/ul Normal 150-450 [facility] Comment on above: Performed By: #### C BC #### [facility] [address] [place] [address] Dr. Jossue Centeno RBC 5.93 106/ul Normal 4.70-6.10 [facility] Comment on above: Performed By: #### C BC #### [facility] [address] [place] [address] Dr. Jossue Centeno WBC 9.5 103/ul Normal 4.0-11.0 [facility] Comment on above: Performed By: #### C BC #### [facility] [address] [place] [address] Dr. Jossue Centeno MAGNESIUMon 01-27-2022 Magnesium [Mass/Vol] 1.5 mg/dL Critically low 1.8-2.4 [facility] Comment on above: Performed By: #### K #### [facility] [address] [place] [address] Dr. Jossue Centeno PROF 14(COMP METB)on 022 Albumin [Mass/Vol] 4.1 g/dL Normal 3.4-5.0 [facility] Comment on above: Performed By: #### Isabell Luna, CMP #### [facility] [address] [place] [address] Dr. Jossue Centeno Albumin/Globulin [Mass ratio] 1.0 {ratio} Normal [facility] Comment on above: Performed By: #### M G, CMP #### [facility] [address] [place] [address] Dr. Jossue Centeno ALP [Catalytic activity/Vol] 107 U/L Normal 46-116 [facility] Comment on above: Performed By: #### Isabell G, CMP #### [facility] [address] [place] [address] Dr. Jossue Centeno ALT [Catalytic activity/Vol] 50 U/L Normal 16-63 [facility] Comment on above: Performed By: #### Isabell Luna, CMP #### [facility] [address] [place] [address] Dr. Jossue Centeno Anion gap [Moles/Vol] 12.1 mmol/L Normal [facility] Comment on above: Performed By: #### Isabell Luna, CMP #### [facility] [address] [place] [address] Dr. Jossue Centeno AST [Catalytic activity/Vol] 25 U/L Normal 15-37 [facility] Comment on above: Performed By: #### Isabell Luna, CMP #### [facility] [address] [place] [address] Dr. Jossue Centeno Bilirubin [Mass/Vol] 0.6 mg/dL Normal 0.2-1.0 [facility] Comment on above: Performed By: #### M G, CMP #### [facility] [address] [place] [address] Dr. Jossue Centeno Calcium [Mass/Vol] 9.3 mg/dL Normal 8.5-10.1 [facility] Comment on above: Performed By: #### M G, CMP #### [facility] [address] [place] [address] Dr. Josuse Centeno Chloride [Moles/Vol] 97 mmol/L Critically low 98-107 [facility] Comment on above: Performed By: #### M G, CMP #### [facility] [address] [place] [address] Dr. Jossue Centeno CO2 [Moles/Vol] 32.1 mmol/L Critically high 21.0-32.0 [facility] Comment on above: Performed By: #### M G, CMP #### [facility] [address] [place] [address] Dr. Jossue Centeno Creatinine [Mass/Vol] 0.76 mg/dL Normal 0.70-1.30 [facility] Comment on above: Performed By: #### M G, CMP #### [facility] [address] [place] [address] Dr. Jossue Centeno EGFR-AF EGYPTIAN >60 Normal >=60 [facility] Comment on above: Performed By: #### Isabell G, CMP #### [facility] [address] [place] [address] Dr. Jossue Centeno EGFR-NON AF EGYPTIAN >60 Normal >=60 [facility] Comment on above: Performed By: #### M G, CMP #### [facility] [address] [place] [address] Dr. Jossue Centeno Globulin (S) [Mass/Vol] 4.1 g/dL Normal [facility] Comment on above: Performed By: #### Isabell G, CMP #### [facility] [address] [place] [address] Dr. Jossue Centeno Glucose [Mass/Vol] 92 mg/dL Normal 74-106 [facility] Comment on above: Performed By: #### M G, CMP #### [facility] [address] [place] [address] Dr. Jsosue Centeno Potassium [Moles/Vol] 3.2 mmol/L Critically low 3.5-5.1 [facility] Comment on above: Performed By: #### M G, CMP #### [facility] [address] [place] [address] Dr. Jossue Centeno Protein [Mass/Vol] 8.2 g/dL Normal 6.4-8.2 [facility] Comment on above: Performed By: #### M G, CMP #### [facility] [address] [address] [address] Jossue Centeno Sodium [Moles/Vol] 138 mmol/L Normal 136-145 [facility] Comment on above: Performed By: #### M G, CMP #### [facility] [address] [address] [address] Jossue Centeno Urea nitrogen [Mass/Vol] 11.0 mg/dL Normal 7.0-18.0 [facility] Comment on above: Performed By: #### M G, CMP #### [facility] [address] [address] [address] Jossue Centeno Urea nitrogen/Creatinine [Mass ratio] 14.5 mg/mg Normal [facility] Comment on above: Performed By: #### M G, CMP #### [facility] [address] [address] [address] Jossue Centeno Office Visit (Cardiology)on 12-02-2021 Follow-up visit Diagnoses/Problems Assessed Atypical chest pain (786.59) (R07.89) Cardiac enzymes elevated (790.5) (R74.8) Hypokalemia (276.8) (E87.6) Hypomagnesemia (275.2) (E83.42) Class 1 obesity with body mass index (BMI) of 31.0 to 31.9 in adult (278.00,V85.31) (E66.9,Z68.31) Never a smoker Orders Atypical chest pain Echocardiogram; Status:Hold For - Scheduling,Retrospect pratik Authorization; Requested for:[id number]; Atypical chest pain, Cardiac enzymes elevated, Hypokalemia, Hypomagnesemia Cardiac Stress Test; Status:Hold For - Scheduling,Retrospect pratik Authorization; Requested for:[id number]; Class 1 obesity with body mass index (BMI) of 31.0 to 31.9 in adult Healthy Weight Tips; Status:Complete - Retrospective Authorization; Done: [id number] SocHx: Never a smoker Tobacco Use Screening; Status:Complete; Done: [id number] Tobacco Use Screening; Status:Complete; Done: [id number] Tobacco Use Screening; Status:Complete; Done: [id number] Patient Instructions By signing my name below, [...] negative for complaint. Vitals Vital Signs Recorded: [id number] 09:05AMRecorded: [id number] 09:04AM Hiogozkv525, LUE, Tttuids906, RUE, Sitting Isoamedvm53, LUE, Iqvkqfu02, RUE, Sitting Heart Rate66, Apical Height5 ft 10 in Ursxme444 lb BMI Anzpxwsivm13.14 kg/m2 BSA Calculated2.16 Tobacco Useb) No PHQ-2 [...] 2+ bilate (more content not included)... Normal [employer] Tobacco Screening.on 022 Adult depression screening assessment No [facility] Work Phone: Fall risk assessment c) Not medically indicated [facility] Work Phone: Tobacco use status [facility] b) No [facility] Work Phone: POTASSIUMon 11-16-2021 Potassium [Moles/Vol] 3.8 mmol/L Normal 3.5-5.1 [facility] Comment on above: Performed By: #### K #### [facility] [address] [place] [address] Dr. Jossue Centeno POTASSIUMon 11-12-2021 Potassium [Moles/Vol] 3.7 mmol/L Normal 3.5-5.1 [facility] Comment on above: Performed By: #### K #### [facility] [address] [place] [address] Dr. Jossue Centeno HEMOGRAM AND PLATELon 2021 Hematocrit (Bld) [Volume fraction] 45.0 % Normal 42.0-54.0 [facility] Comment on above: Performed By: #### H H #### [facility] [address] [place] [address] Dr. Jossue Centeno Hemoglobin (Bld) [Mass/Vol] 15.1 g/dL Normal 14.0-18.0 [facility] Comment on above: Performed By: #### H H #### [facility] [address] [place] [address] Dr. Jossue Centeno MCH (RBC) [Entitic mass] 27.9 pg Normal 25.9-34.0 [facility] Comment on above: Performed By: #### H H #### [facility] [address] [place] [address] Dr. Jossue Centeno MCHC (RBC) [Mass/Vol] 33.6 g/dL Normal 29.9-35.2 [facility] Comment on above: Performed By: #### H H #### [facility] [address] [place] [address] Dr. Jossue Centeno MCV (RBC) [Entitic vol] 83.2 fL Normal 80.0-94.0 [facility] Comment on above: Performed By: #### H H #### [facility] [address] [place] [address] Dr. Jossue Centeno PLT 299 103/ul Normal 150-450 [facility] Comment on above: Performed By: #### H H #### [facility] [address] [place] [address] Dr. Jossue Centeno RBC 5.41 106/ul Normal 4.70-6.10 [facility] Comment on above: Performed By: #### H H #### [facility] [address] [address] [address] Jossue Centeno WBC 10.2 103/ul Normal 4.0-11.0 [facility] Comment on above: Performed By: #### H H #### [facility] [address] [place] [address] Dr. Jossue Centeno MAGNESIUMon 11-11-2021 Magnesium [Mass/Vol] 1.3 mg/dL Critically low 1.8-2.4 [facility] Comment on above: Performed By: #### K #### [facility] [address] [place] [address] Dr. Jossue Centeno RENAL FUNCTION PANELon 11-11 Albumin [Mass/Vol] 4.1 g/dL Normal 3.4-5.0 [facility] Comment on above: Performed By: #### K #### [facility] [address] [place] [address] Dr. Jossue Centeno Calcium [Mass/Vol] 9.4 mg/dL Normal 8.5-10.1 [facility] Comment on above: Performed By: #### K #### [facility] [address] [place] [address] Dr. Jossue Centeno Chloride [Moles/Vol] 102 mmol/L Normal 98-107 [facility] Comment on above: Performed By: #### K #### [facility] [address] [place] [address] Dr. Jossue Centeno CO2 [Moles/Vol] 30.7 mmol/L Normal 21.0-32.0 [facility] Comment on above: Performed By: #### K #### [facility] [address] [place] [address] Dr. Jossue Centeno Creatinine [Mass/Vol] 0.83 mg/dL Normal 0.70-1.30 [facility] Comment on above: Performed By: #### K #### [facility] [address] [place] [address] Dr. Jossue Centeno EGFR-AF EGYPTIAN >60 Normal >=60 [facility] Comment on above: Performed By: #### K #### [facility] [address] [address] [address] Jossue Centeno EGFR-NON AF EGYPTIAN >60 Normal >=60 [facility] Comment on above: Performed By: #### K #### [facility] [address] [address] [address] Jossue Centeno Glucose [Mass/Vol] 94 mg/dL Normal 74-106 [facility] Comment on above: Performed By: #### K #### [facility] [address] [address] [address] Jossue Centeno Phosphate [Mass/Vol] 2.4 mg/dL Critically low 2.6-4.7 [facility] Comment on above: Performed By: #### K #### [facility] [address] [address] [address] Jossue Centeno Potassium [Moles/Vol] 5.7 mmol/L Critically high 3.5-5.1 [facility] Comment on above: Performed By: #### K #### [facility] [address] [address] [address] Jossue Centeno Sodium [Moles/Vol] 139 mmol/L Normal 136-145 [facility] Comment on above: Performed By: #### K #### [facility] [address] [address] [address] Jossue Centeno Urea nitrogen [Mass/Vol] 13.0 mg/dL Normal 7.0-18.0 [facility] Comment on above: Performed By: #### K #### [facility] [address] [address] [address] Jossue Centeno CARDIAC ESTUARDO 3-6on 2 CK [Catalytic activity/Vol] 536 U/L Critically high 39-308 [facility] Comment on above: Performed By: #### K #### [facility] [address] [address] [address] Jossue Centeno CK.MB [Mass/Vol] 3.09 ng/mL Normal <=3.60 [facility] Comment on above: Performed By: #### K #### [facility] [address] [place] [address] Dr. Jossue Centeno HSTROP 179.4 pg/mL Critically high 4.0-76.1 [facility] Comment on above: Result Comment: CUT- OFF POINTS HAVE BEEN ESTABLISHED BASED ON THE FOURTH UNIVERSAL DEFINITIONS OF MYOCARDIAL INFARCTION. THE UPPER REFERENCE LIMIT (URL) OF TROPONIN, DEFINED THE 99TH PERCENTILE OF cTnI DISTRIBUTION IN A REFERENCE POPULATION, HAS BEEN CONFIRMED THE DECISION THRESHOLD FOR [place] DIAGNOSIS. TEST REPEATED. CRITICAL VALUE VERIFIED Performed By: #### K #### [facility] [address] [place] [address] Dr. Jossue Centeno CARDIAC ESTUARDO ADMITon 022 CK [Catalytic activity/Vol] 607 U/L Critically high 39-308 [facility] Comment on above: Performed By: #### B MARY QUEEN #### [facility] [address] [place] [address] Dr. Jossue Centeno CK.MB [Mass/Vol] 3.82 ng/mL Critically high <=3.60 [facility] Comment on above: Result Comment: TEST REPEATED. CRITICAL VALUE VERIFIED Performed By: #### B MARY QUEEN #### [facility] [address] [place] [address] Dr. Jossue Centeno HSTROP 187.8 pg/mL Critically high 4.0-76.1 [facility] Comment on above: Result Comment: CUT- OFF POINTS HAVE BEEN ESTABLISHED BASED ON THE FOURTH UNIVERSAL DEFINITIONS OF MYOCARDIAL INFARCTION. THE UPPER REFERENCE LIMIT (URL) OF TROPONIN, DEFINED THE 99TH PERCENTILE OF cTnI DISTRIBUTION IN A REFERENCE POPULATION, HAS BEEN CONFIRMED THE DECISION THRESHOLD FOR [place] DIAGNOSIS. TEST REPEATED. CRITICAL VALUE VERIFIED Performed By: #### B BERNICE, JIDM #### [facility] [address] [place] [address] Dr. Jossue Centeno MELVI 100 ng/mL Critically high 16-96 [facility] Comment on above: Performed By: #### B BERNICE, JIDM #### [facility] [address] [place] [address] Dr. Jossue Centeno CBC AUTO DIFFon 11-08-2021 BASO # 0.1 103/ul Normal 0.0-0.1 [facility] Comment on above: Performed By: #### K #### [facility] [address] [place] [address] Dr. Jossue Centeno Basophils/100 WBC (Bld) 0.5 % Normal 0.2-2.0 [facility] Comment on above: Performed By: #### K #### [facility] [address] [place] [address] Dr. Jossue Centeno EO # 0.2 103/ul Normal 0.0-0.7 [facility] Comment on above: Performed By: #### K #### [facility] [address] [place] [address] Dr. Jossue Centeno Eosinophils/100 WBC (Bld) 1.3 % Normal 0.9-7.0 [facility] Comment on above: Performed By: #### K #### [facility] [address] [place] [address] Dr. Jossue Centeno Erythrocyte distribution width (RBC) [Ratio] 12.6 % Normal 11.0-15.0 [facility] Comment on above: Performed By: #### K #### [facility] [address] [place] [address] Dr. Jossue Centeno Hematocrit (Bld) [Volume fraction] 41.4 % Critically low 42.0-54.0 [facility] Comment on above: Performed By: #### K #### [facility] [address] [place] [address] Dr. Jossue Centeno Hemoglobin (Bld) [Mass/Vol] 14.5 g/dL Normal 14.0-18.0 [facility] Comment on above: Performed By: #### K #### [facility] [address] [place] [address] Dr. Jossue Centeno IG # 0.05 10e3/ul Critically high 0.00-0.03 [facility] Comment on above: Performed By: #### K #### [facility] [address] [place] [address] Dr. Jossue Centeno IG % 0.4 % Normal 0.0-0.5 [facility] Comment on above: Performed By: #### K #### [facility] [address] [place] [address] Dr. Jossue Centeno LYMPH # 1.6 103/ul Normal 1.2-3.8 [facility] Comment on above: Performed By: #### K #### [facility] [address] [place] [address] Dr. Jossue Centeno Lymphocytes/100 WBC (Bld) 12.4 % Critically low 20.5-60.0 [facility] Comment on above: Performed By: #### K #### [facility] [address] [place] [address] Dr. Jossue Centeno MANUAL DIFF REQ NO Normal [facility] Comment on above: Performed By: #### K #### [facility] [address] [place] [address] Dr. Jossue Centeno MCH (RBC) [Entitic mass] 28.3 pg Normal 25.9-34.0 [facility] Comment on above: Performed By: #### K #### [facility] [address] [place] [address] Dr. Jossue Centeno MCHC (RBC) [Mass/Vol] 35.0 g/dL Normal 29.9-35.2 [facility] Comment on above: Performed By: #### K #### [facility] [address] [place] [address] Dr. Jossue Centeno MCV (RBC) [Entitic vol] 80.7 fL Normal 80.0-94.0 [facility] Comment on above: Performed By: #### K #### [facility] [address] [place] [address] Dr. Jossue Centeno MONO # 0.9 103/ul Critically high 0.3-0.8 [facility] Comment on above: Performed By: #### K #### [facility] [address] [place] [address] Dr. Jossue Centeno Monocytes/100 WBC (Bld) 6.9 % Normal 1.7-12.0 [facility] Comment on above: Performed By: #### K #### [facility] [address] [place] [address] Dr. Jossue Centeno NEUT # 10.3 103/ul Critically high 1.4-6.5 [facility] Comment on above: Performed By: #### K #### [facility] [address] [address] [address] Jossue Centeno Neutrophils/100 WBC (Bld) 78.5 % Critically high 43.0-75.0 [facility] Comment on above: Performed By: #### K #### [facility] [address] [place] [address] Dr. Jossue Centeno Platelet mean volume (Bld) [Entitic vol] 9.5 fL Normal 9.5-13.5 [facility] Comment on above: Performed By: #### K #### [facility] [address] [place] [address] Dr. Jossue Centeno PLT 306 103/ul Normal 150-450 [facility] Comment on above: Performed By: #### K #### [facility] [address] [place] [address] Dr. Jossue Centeno RBC 5.13 106/ul Normal 4.70-6.10 [facility] Comment on above: Performed By: #### K #### [facility] [address] [place] [address] Dr. Jossue Centeno WBC 13.1 103/ul Critically high 4.0-11.0 [facility] Comment on above: Performed By: #### K #### [facility] [address] [place] [address] Dr. Jossue Centeno LIVER PROFILEon 11-08-2021 Albumin [Mass/Vol] 3.8 g/dL Normal 3.4-5.0 [facility] Comment on above: Performed By: #### L IVER #### [facility] [address] [place] [address] Dr. Jossue Centeno Albumin/Globulin [Mass ratio] 1.1 {ratio} Normal [facility] Comment on above: Performed By: #### L IVER #### [facility] [address] [address] [address] Jossue Centeno ALP [Catalytic activity/Vol] 91 U/L Normal 46-116 [facility] Comment on above: Performed By: #### L IVER #### [facility] [address] [place] [address] Dr. Jossue Centeno ALT [Catalytic activity/Vol] 69 U/L Critically high 16-63 [facility] Comment on above: Performed By: #### L IVER #### [facility] [address] [address] [address] Jossue Centeno AST [Catalytic activity/Vol] 40 U/L Critically high 15-37 [facility] Comment on above: Performed By: #### L IVER #### [facility] [address] [place] [address] Dr. Jossue Centeno BILI, CONJUGATED 0.1 mg/dL Normal 0.0-0.2 [facility] Comment on above: Performed By: #### L IVER #### [facility] [address] [place] [address] Dr. Jossue Centeno Bilirubin [Mass/Vol] 0.6 mg/dL Normal 0.2-1.0 [facility] Comment on above: Performed By: #### L IVER #### [facility] [address] [place] [address] Dr. Jossue Centeno Globulin (S) [Mass/Vol] 3.4 g/dL Normal T [facility] Comment on above: Performed By: #### L IVER #### [facility] [address] [place] [address] Dr. Jossue Centeno Protein [Mass/Vol] 7.2 g/dL Normal 6.4-8.2 [facility] Comment on above: Performed By: #### L IVER #### [facility] [address] [place] [address] Dr. Jossue Centeno PROF CHEM 8 (BAS METB)on Anion gap [Moles/Vol] 10.3 mmol/L Normal [facility] Comment on above: Performed By: #### B MP, CMADM #### [facility] [address] [address] [address] Jossue Centeno Calcium [Mass/Vol] 8.9 mg/dL Normal 8.5-10.1 [facility] Comment on above: Performed By: #### B MP, CMADM #### [facility] [address] [address] [address] Jossue Centeno Chloride [Moles/Vol] 97 mmol/L Critically low 98-107 [facility] Comment on above: Performed By: #### B BERNICE, CMADM #### [facility] [address] [address] [address] Jossue Centeno CO2 [Moles/Vol] 34.0 mmol/L Critically high 21.0-32.0 [facility] Comment on above: Performed By: #### B BERNICE, CMADM #### [facility] [address] [address] [address] Josseu Centeno Creatinine [Mass/Vol] 0.89 mg/dL Normal 0.70-1.30 [facility] Comment on above: Performed By: #### B BERNICE, CMADM #### [facility] [address] [address] [address] Jossue Centeno EGFR-AF EGYPTIAN >60 Normal >=60 [facility] Comment on above: Performed By: #### B BERNICE, CMADM #### [facility] [address] [address] [address] Jossue Centeno EGFR-NON AF EGYPTIAN >60 Normal >=60 [facility] Comment on above: Performed By: #### B BERNICE, CMADM #### [facility] [address] [address] [address] Jossue Centeno Glucose [Mass/Vol] 98 mg/dL Normal 74-106 [facility] Comment on above: Performed By: #### B BERNICE, CMADM #### [facility] [address] [address] [address] Jossue Centeno Potassium [Moles/Vol] 2.4 mmol/L Critically low 3.5-5.1 [facility] Comment on above: Result Comment: TEST REPEATED. CRITICAL VALUE VERIFIED Performed By: #### B BERNICE, JIDM #### [facility] [address] [address] [address] Jossue Centeno Sodium [Moles/Vol] 139 mmol/L Normal 136-145 [facility] Comment on above: Performed By: #### B BERNICE, JIDM #### [facility] [address] [address] [address] Jossue Centeno Urea nitrogen [Mass/Vol] 14.0 mg/dL Normal 7.0-18.0 [facility] Comment on above: Performed By: #### B BERNICE, JIDM #### [facility] [address] [address] [address] Jossue Centeno Urea nitrogen/Creatinine [Mass ratio] 15.7 mg/mg Normal [facility] Comment on above: Performed By: #### B BERNICE, JIDM #### [facility] [address] [address] [address] Jossue Centeno XR CHEST 2 Von [...] ONIEL WILSON Date: 2021-11-08 20:44 Normal [facility] BASIC METABOLIC PANELon -3 Calcium 10.4 mg/dL High 8.6-10.3 [facility] Comment on above: Performed By: #### 1 69, [id number] ####[facility] [place] [address], [facility] Chloride 99 mmol/L Normal 98-107 [facility] Comment on above: Performed By: #### 1 0, [id number] ####[facility] [place] [address], [facility] CO2 29 mmol/L Normal 21-31 [facility] Comment on above: Performed By: #### 1 69, 56756 ####[facility] [place] [address], [facility] Creatinine 0.82 mg/dL Normal 0.70-1.30 [facility] Comment on above: Performed By: #### 1 69, 96857 ####[facility] [place] [address], [facility] eGFR (black) mL/min/{1.73_m2} Normal >60 The [facility] Comment on above: Performed By: #### 1 69, 25115 ####[facility] [place] [address], [facility] eGFR (non-black) mL/min/{1.73_m2} Normal >60 [facility] Comment on above: Performed By: #### 1 69, [id number] ####[facility] [place] [address], [facility] Glucose mass conc 84 mg/dL Normal 70-100 [facility] Comment on above: Performed By: #### 1 69, 17494 ####[facility] [place] [address], [facility] Potassium molar conc 4.5 mmol/L Normal 3.5-5.1 [facility] Comment on above: Performed By: #### 1 69, 51265 ####[facility] [place] [address], [facility] Sodium 136 mmol/L Normal 136-145 [facility] Comment on above: Performed By: #### 1 69, 14184 ####[facility] [place] [address], [place] Urea nitrogen 14 mg/dL Normal 7-25 [facility] Comment on above: Performed By: #### 1 69, 43510 ####[facility] [place] [address], [facility] MAGNESIUM BLOODon 06-07-2017 Magnesium 1.6 mg/dL Low 1.9-2.7 [facility] Comment on above: Performed By: #### 1 69, 16710 ####[facility] Vital Signs Date Time Vital Sign Value Performing Clinician Faci lity 12-01-2023 13:210400 Body height 177.8 cm [facility] 12-01-2023 13:210400 Body mass index (BMI) [Ratio] 34.4 kg/m2 [facility] 12-01-2023 13:21-0400 Body temperature 97.3 [degF] [facility] 12-01-2023 13:21-0400 Body weight 109.08 kg [facility] 12-01-2023 13:21-0400 Diastolic blood pressure 70 mm[Hg] [facility] 12-01-2023 13:21-0400 Heart rate 88 /min [facility] 12-01-2023 13:21-0400 Respiratory rate 16 /min [facility] 12-01-2023 13:21-0400 SaO2% (BldA) [Mass fraction] 97 % [facility] 12-01-2023 13:21-0400 Systolic blood pressure 110 mm[Hg] [facility] 10-06-2023 15:53-0400 Body height 177.8 cm MD Shaikh Alvarez Work Phone: [facility] 10-06-2023 15:53-0400 Body mass index (BMI) [Ratio] 34.9 kg/m2 MD Shaikh Alvarez Work Phone: [facility] 10-06-2023 15:53-0400 Body temperature 98.4 [degF] MD Shaikh Alvarez Work Phone: [facility] 10-06-2023 15:53-0400 Body weight 110.39 kg MD Shaikh Alvarez Work Phone: [facility] 10-06-2023 15:53-0400 Diastolic blood pressure 80 mm[Hg] MD Shaikh Alvarez Work Phone: [facility] 10-06-2023 15:53-0400 Heart rate 82 /min MD Shaikh Alvarez Work Phone: [facility] 10-06-2023 15:53-0400 Respiratory rate 16 /min MD Shaikh Alvarez Work Phone: [facility] 10-06-2023 15:53-0400 SaO2% (BldA) [Mass fraction] 98 % MD Shaikh Alvarez Work Phone: [facility] 10-06-2023 15:53-0400 Systolic blood pressure 119 mm[Hg] MD Shaikh Alvarez Work Phone: [facility] 09-01-2023 14:39-0400 Diastolic blood pressure 67 mm[Hg] MD Shaikh Alvarez Work Phone: [facility] 09-01-2023 14:39-0400 Heart rate 81 /min MD Shaikh Alvarez Work Phone: [facility] 09-01-2023 14:39-0400 Respiratory rate 16 /min MD Shaikh Alvarez Work Phone: [facility] 09-01-2023 14:39-0400 SaO2% (BldA) [Mass fraction] 96 % MD Shaikh Alvarez Work Phone: [facility] 09-01-2023 14:39-0400 Systolic blood pressure 116 mm[Hg] MD Shaikh Alvarez Work Phone: [facility] 09-01-2023 13:05-0400 Body height 177.8 cm MD Shaikh Alvarez Work Phone: [facility] 09-01-2023 13:05-0400 Body temperature 98.6 [degF] MD Shaikh Alvarez Work Phone: [facility] 09-01-2023 13:05-0400 Body weight 104.3 kg MD Shaikh Alvarez Work Phone: [facility] 08-18-2023 13:24-0400 Body height 172.72 cm MD Shaikh Alvarez Work Phone: [facility] 08-18-2023 13:24-0400 Body weight 104.32 kg MD Shaikh Alvarez Work Phone: [facility] 08-18-2023 13:24-0400 Diastolic blood pressure 87 mm[Hg] MD Shaikh Alvarez Work Phone: [facility] 08-18-2023 13:24-0400 Heart rate 99 /min MD Shaikh Alvarez Work Phone: [facility] 08-18-2023 13:24-0400 Respiratory rate 16 /min MD Shaikh Alvarez Work Phone: [facility] 08-18-2023 13:24-0400 SaO2% (BldA) [Mass fraction] 97 % MD Shaikh Alvarez Work Phone: [facility] 08-18-2023 13:24-0400 Systolic blood pressure 128 mm[Hg] MD Shaikh Alvarez Work Phone: [facility] 07-18-2023 13:02-0400 Body height 175.26 cm MD Shaikh Alvarez Work Phone: [facility] 07-18-2023 13:02-0400 Body mass index (BMI) [Ratio] 34.8 kg/m2 MD Shaikh Alvarez Work Phone: [facility] 07-18-2023 13:02-0400 Body weight 107.04 kg MD Shaikh Alvarez Work Phone: [facility] 07-18-2023 13:02-0400 Diastolic blood pressure 90 mm[Hg] MD Shaikh Alvarez Work Phone: [facility] 07-18-2023 13:02-0400 Heart rate 79 /min MD Shaikh Alvarez Work Phone: [facility] 07-18-2023 13:02-0400 Systolic blood pressure 129 mm[Hg] MD Shaikh Alvarez Work Phone: [facility] 06-16-2023 15:56-0500 Body height 172.7 cm Shaikh Kim CALL Work Phone: [facility] 06-16-2023 15:56-0500 Body mass index (BMI) [Ratio] 35.73 kg/m2 Shaikh Kim CALL Work Phone: [facility] 06-16-2023 15:56-0500 Body temperature 97.9 [degF] Shaikh Kim CALL Work Phone: [facility] 06-16-2023 15:56-0500 Body weight 106.59 kg Shaikh Kim CALL Work Phone: [facility] 06-16-2023 15:56-0500 Diastolic blood pressure 76 mm[Hg] Shaikh Kim CALL Work Phone: [facility] 06-16-2023 15:56-0500 Heart rate 72 /min Shaikh Kim CALL Work Phone: [facility] 06-16-2023 15:56-0500 SaO2% (BldA) [Mass fraction] 96 % Shaikh Kim CALL Work Phone: [facility] 06-16-2023 15:56-0500 Systolic blood pressure 110 mm[Hg] Shaikh Kim CALL Work Phone: [facility] 11-25-2022 15:40-0400 Body height 175.26 cm Marcelino Andra Other [employer] Other 11-25-2022 15:40-0400 Body mass index (BMI) [Ratio] 34.23 kg/m2 Marcelino Andra Other [employer] Other 11-25-2022 15:40-0400 Body temperature 98 [degF] Marcelino Andra Other [employer] Other 11-25-2022 15:40-0400 Body weight 105.14 kg Marcelino Andra Other [employer] Other 11-25-2022 15:40-0400 Diastolic blood pressure 81 mm[Hg] Marcelino Andra Other [employer] Other 11-25-2022 15:40-0400 Respiratory rate 18 /min Marcelino Andra Other [employer] Other 11-25-2022 15:40-0400 SaO2% (BldA) [Mass fraction] 98 % Marcelino Andra Other [employer] Other 11-25-2022 15:40-0400 Systolic blood pressure 134 mm[Hg] Marcelino Andra Other [employer] Other 12-02-2021 09:05-0400 Diastolic blood pressure 88 mm[Hg] Provider AMAProvider Work Phone: [facility] Work Phone: 12-02-2021 09:05-0400 Systolic blood pressure 118 mm[Hg] Provider AMAProvider Work Phone: [facility] Work Phone: 12-02-2021 09:04-0400 Body height 177.8 cm Provider AMAProvider Work Phone: [facility] Work Phone: 12-02-2021 09:04-0400 Body mass index (BMI) [Ratio] 31.14 kg/m2 Provider AMAProvider Work Phone: [phone] [place] [address] Work Phone: 12-02-2021 09:04-0400 Body surface area Derived from formula 2.16 m2 Provider AMAProvider Work Phone: [phone])[phone] [place] [address] Work Phone: 12-02-2021 09:04-0400 Body weight 98.43 kg Provider AMAProvider Work Phone: [phone] [place] [address] Work Phone: 12-02-2021 09:04-0400 Diastolic blood pressure 86 mm[Hg] Provider AMAProvider Work Phone: [phone] [place] [address] Work Phone: 12-02-2021 09:04-0400 Heart rate 66 /min Provider AMAProvider Work Phone: [phone] [place] [address] Work Phone: 12-02-2021 09:04-0400 Systolic blood pressure 122 mm[Hg] Provider AMAProvider Work Phone: [phone] [place] [address] Work Phone: 03-25-2021 12:20-0500 Body height 175.26 cm Marcelino Andra Other [employer] Other 03-25-2021 12:20-0500 Body mass index (BMI) [Ratio] 30.59 kg/m2 Marcelino Andra Other [employer] Other 03-25-2021 12:20-0500 Body temperature 99.1 [degF] Marcelino Andra Other [employer] Other 03-25-2021 12:20-0500 Body weight 93.99 kg Marcelino Andra Other [employer] Other 03-25-2021 12:20-0500 Diastolic blood pressure 82 mm[Hg] Marcelino Andra Other [employer] Other 03-25-2021 12:20-0500 Respiratory rate 18 /min Marcelino Andra Other [employer] Other 03-25-2021 12:20-0500 SaO2% (BldA) [Mass fraction] 96 % Marcelino Andra Other [employer] Other 03-25-2021 12:20-0500 Systolic blood pressure 125 mm[Hg] Marcelino Andra Other [employer] Other Encounters Encounter Date Encounter Type Care Provider Facility Start: 07-30-2024 End: 07-30-2024 ambulatory [facility] Not Available Start: 03-31-2024 End: 03-31-2024 ambulatory Shaikh Kim Facility:[facility] Start: 03-20-2024 End: 03-20-2024 Clinisync Result Encounter Generic External Data Provider [facility] External Department Unsolicited Start: 03-20-2024 End: 03-20-2024 Clinisync Result Encounter Generic External Data Provider [facility] External Department Unsolicited Start: 12-01-2023 End: 12-01-2023 ambulatory [facility] Work Phone: Start: 12-01-2023 End: 12-01-2023 Patient encounter procedure [facility] [place] Work Phone: Start: 11-21-2023 Non-patient / Non-visit [facility] Work Phone: Start: 11-19-2023 Non-patient / Non-visit [facility] Work Phone: Start: 10-26-2023 Non-patient / Non-visit [facility] Work Phone: Start: 10-06-2023 End: 10-06-2023 ambulatory MD Shaikh Alvarez Work Phone: [facility] Work Phone: Start: 10-06-2023 End: 10-06-2023 Patient encounter procedure MD Shaikh Alvarez Work Phone: [facility] Work Phone: Start: 10-06-2023 Non-patient / Non-visit MD Shaikh Alvarez Work Phone: [facility] Work Phone: Start: 09-01-2023 Non-patient / Non-visit MD Shaikh Alvarez Work Phone: [facility] Work Phone: Start: 09-01-2023 End: 09-01-2023 Admission to same day surgery center MD Shaikh Alvarez Work Phone: [facility] Work Phone: Start: 09-01-2023 End: 09-01-2023 ambulatory MD Shaikh Alvarez Work Phone: [facility] Work Phone: Start: 08-18-2023 End: 08-18-2023 Admission to same day surgery center MD Shaikh Alvarez Work Phone: [facility] Work Phone: Start: 08-18-2023 End: 08-18-2023 ambulatory MD Shaikh Alvarez Work Phone: [facility] Work Phone: Start: 08-04-2023 End: 08-04-2023 ambulatory OSVALDO LEE Not Available Start: 08-02-2023 End: 08-02-2023 ambulatory JEREMIAH MERRITT Not Available Start: 07-23-2023 End: 07-23-2023 Patient encounter procedure MD Shaikh Alvarez Work Phone: [facility] [place] Work Phone: Start: 07-23-2023 End: 07-23-2023 ambulatory MD Shaikh Alvarez Work Phone: [facility] Work Phone: Start: 07-18-2023 End: 07-18-2023 Patient encounter procedure MD Shaikh Alvarez Work Phone: [facility] Work Phone: Start: 06-22-2023 Orders Only Shaikh Kim CALL Work Phone: [facility] Comment on above: Infraspinatus strain , right, subsequent encounter (Primary Dx) Start: 06-16-2023 End: 06-16-2023 Office outpatient visit 25 minutes Shaikh Kim CALL Work Phone: [facility] Comment on above: Acute pain of right shoulder (Primary Dx) Start: 04-11-2023 End: 04-11-2023 ambulatory Carlos Johnson Other [employer] Other Start: 04-11-2023 Encounter by [employer] r link Carlos Johnson [facility] Start: 11-25-2022 End: 11-25-2022 ambulatory Marcelino Andra Other [employer] Other Start: 11-25-2022 Office outpatient visit 15 minutes Marcelino Andra [facility] [place] Start: 11-25-2022 Telephone encounter Marcelino Andra [facility] Start: 08-27-2022 End: 08-27-2022 ambulatory Marcelino Andra Other [employer] Other Start: 08-27-2022 Telephone encounter Marcelino Andar [facility] Start: 06-23-2022 End: 06-24-2022 ambulatory SHAIKH Sawyer ALVAREZ Facility:[facility] Start: 01-27-2022 End: 01-28-2022 ambulatory NIDA CHUCK Facility:[facility] Start: 12-02-2021 Office outpatient ne w 45 minutes Provider AMAProvider Work Phone: [facility] Work Phone: Start: 11-16-2021 End: 11-17-2021 ambulatory MARCELINO ANDRA Facility:[facility] Start: 11-12-2021 End: 11-13-2021 ambulatory MARCELINO ANDRA Facility:[facility] Start: 11-11-2021 End: 11-12-2021 ambulatory MARCELINO ANDRA [email or web address] Other Start: 11-11-2021 Telephone encounter Marcelino Andra [facility] Start: 11-10-2021 End: 11-10-2021 ambulatory Marcelino Andra Other [employer] Other Start: 11-10-2021 Telephone encounter Marcelino Andra [facility] [place] Start: 11-08-2021 End: 11-09-2021 ambulatory NIDA CHUCK Facility:[facility] Start: 10-13-2021 End: 10-13-2021 ambulatory NIDA CHUCK Facility:[facility] Start: 10-12-2021 End: 10-12-2021 ambulatory Nida A Chuck [employer] Facility:[facility] Start: 09-23-2021 ambulatory MARCELINO ANDRA Facility:[facility] Start: 03-25-2021 End: 03-25-2021 ambulatory Marcelino Andra Other [employer] Other Start: 03-25-2021 Office outpatient visit 15 minutes Marcelino Andra [facility] Start: 03-24-2021 End: 03-24-2021 ambulatory Amrcelino Andra Other [employer] Other Start: 03-24-2021 Telephone encounter Marcelino Andra [facility] Start: 07-22-2017 End: 07-23-2017 Ambulatory MARBELLA MAVERICK Facility:[facility] Start: 06-07-2017 End: 06-08-2017 Ambulatory OSIYEMI OSINOWO Facility:[facility] Procedures Date Procedure Procedure Detail Performing Clinician Start: 03-20-2024 ALL MAGNESIUM Generic E xternal Data Provider Start: 03-20-2024 ALL RENAL FUNCTION PANEL Generic External Data Provider Start: 03-20-2024 [facility] CBC WITH PLATEL ET NO DIFFERENTIAL Generic External Data Provider Start: 03-20-2024 [facility] URINALYSIS, WITH MICROSCOPIC Generic External Data Provider Start: 03-20-2024 [facility] URINE T PROTEIN CREAT RATIO Generic External Data Provider Start: 09-01-2023 Esophagogastroduodenoscopy MD Shaikh Alvarez Work Phone: Start: 08-18-2023 Esophagogastroduodenoscopy MD Shaikh Alvarez Work Phone: NEGATED: Highlighted row has not occurred! Total colonoscopy Provider AMAProvider Work Phone: Plan of Treatment Date Care Activity Detail Author Start: 01-08-2024 Influenza vaccination Influenza Vacc ine (#1) [facility] Start: 09-01-2023 [facility] Start: 08-18-2023 [facility] Start: 06-27-2023 End: 06-27-2023 Patient encounter procedure 06/27/2023 9:45 AM EST Office Visit [facility] [address] [place] [id number] Shaikh Alvarez MD [address] [place] [address] [facility] Start: 06-23-2023 End: 06-23-2023 ambulatory 06/23/2023 1:00 PM EST Evaluation [facility] [address] [place] [id number] Edmundo Reina, PT [address] [place] [address] [facility] Start: 06-16-2023 End: 06-16-2024 MR Shoulder - right WO contrast MR shoulder right wo IV contrast Imaging Routine Acute pain of right shoulder Expected: 06/16/2023, Expires: 06/16/2024 [facility] Work Phone: Comment on above: Expected: 06/16/2023 , Expires: 06/16/2024 Start: 01-07-2023 Influenza vaccination Influenza Vacc ine (#1) [facility] Start: 01-05-2022 STRESS NUC, Provider : FRANCISCO [facility] NUCLEAR 01,[id number], Status: Pen, Time: 12:00 PM STRESS NUC, Provider: FRANCISCO [facility] NUCLEAR 01,[id number], Status: Pen, Time: 12:00 PM [facility] Work Phone: Start: 01-05-2022 ECHO, Provider: FRANCISCO [facility] ULTRASOUND 01,[id number], Status: Pen, Time: 9:45 AM ECHO, Provider: FRANCISCO [facility] ULTRASOUND 01,[id number], Status: Pen, Time: 9:45 AM [facility] Work Phone: Patient Education Gastric Ulcer (DC) [facility] Work Phone: Renal function 1999 panel - Serum or Plasma [facility] Renal function 1999 panel - Serum or Plasma [facility] Immunizations Immunization Date Immunization Notes Care Provider Fa karen 10-04-2020 Pfizer-BioNTech COVID-19 Vacc 30 MCG/0.3ML Intramuscular Suspension Provider AMAProvider Work Phone: [phone] [place] [address] Work Phone: 09-07-2020 Pfizer-BioNTech COVID-19 Vacc 30 MCG/0.3ML Intramuscular Suspension Provider AMAProvider Work Phone: [phone] [place] [address] Work Phone: 12-14-2000 diphtheria, tetanus toxoids and acellular pertussis vaccine, unspecified formulation Provider AMAProvider Work Phone: [phone] [address] Work Phone: 12-14-2000 measles, mumps and rubella virus vaccine Provider AMAProvider Work Phone: [phone] [place] [address] Work Phone: 12-14-2000 poliovirus vaccine, inactivated Provider AMAProvider Work Phone: [phone] [address] Work Phone: 02-06-1997 diphtheria, tetanus toxoids and acellular pertussis vaccine, unspecified formulation Provider AMAProvider Work Phone: [phone] [address] Work Phone: 02-06-1997 haemophilus influenz ae type b vaccine, conjugate unspecified formulation Provider AMAProvider Work Phone: [phone] [address] Work Phone: 02-06-1997 measles, mumps and rubella virus vaccine Provider AMAProvider Work Phone: [phone] [place] [address] Work Phone: 10-08-1996 diphtheria, tetanus toxoids and acellular pertussis vaccine, unspecified formulation Provider AMAProvider Work Phone: [phone] [address] Work Phone: 10-08-1996 haemophilus influenz ae type b vaccine, conjugate unspecified formulation Provider AMAProvider Work Phone: [phone] [place] [address] Work Phone: 10-08-1996 hepatitis B vaccine, pediatric or pediatric/adolescent dosage Provider AMAProvider Work Phone: [phone] [place] [address] Work Phone: 10-08-1996 trivalent poliovirus vaccine, live, oral Provider AMAProvider Work Phone: [phone] [place] [address] Work Phone: 04-02-1996 DTP-Haemophilus influenzae type b conjugate vaccine Provider AMAProvider Work Phone: [phone] [place] [address] Work Phone: 04-02-1996 trivalent poliovirus vaccine, live, oral Provider AMAProvider Work Phone: [phone] [place] [address] Work Phone: 1995 DTP-Haemophilus influenzae type b conjugate vaccine Provider AMAProvider Work Phone: [phone] [place] [address] Work Phone: 1995 hepatitis B vaccine, pediatric or pediatric/adolescent dosage Provider AMAProvider Work Phone: [phone] [place] [address] Work Phone: 1995 trivalent poliovirus vaccine, live, oral Provider AMAProvider Work Phone: [phone] [place] [address] Work Phone: 1995 hepatitis B vaccine, pediatric or pediatric/adolescent dosage Provider AMAProvider Work Phone: [phone] [place] [address] Work Phone: Payers Date Payer Category Payer Self-pay [id number] 2023 Private Health Insurance [facility] [id number] 2023 Private Health Insurance [id number] 2022 Private Health Insurance [facility] [id number] 2021 Unknown [id number] 2.16. [id number] 1995 Unknown [id number] 2.16.84 0.1.314638.3.579.2.593 1995 Unknown [id number] 2.16.84 0.1.275752.3.579.2.593 1995 Unknown [id number] 2.16.84 0.1.252121.3.579.2.593 1995 Unknown [id number] 2.16.84 0.1.650872.3.579.2.593 1995 Unknown [id number] 2.16.84 0.1.458139.3.579.2.593 1995 Unknown [id number] 2.16.84 0.1.607124.3.579.2.593 1995 Unknown [id number] 2.16.84 0.1.750228.3.579.2.593 1995 Unknown [id number] 2.16.84 0.1.210748.3.579.2.593 1995 Unknown [id number] 2.16.84 0.1.908042.3.579.2.718 1995 Unknown [id number] 2.16.84 0.1.216848.3.579.2.1259 1995 Unknown [id number] 2.16.84 0.1.998584.3.579.2.1259 1995 Unknown [id number] 2.16.84 0.1.961048.3.579.2.1259 1959 Private Health Insurance [id number] 1959 Private Health Insurance [id number] 1959 Self-pay [id number] 1959 Unknown [id number] Unknown [id number] Unknown Unknown [id number] 2.16.8 40.1.668250.3.579.2.531 Unknown [id number] 2.16.8 40.1.401215.3.579.2.531 Unknown [id number] 2.16.8 40.1.057996.3.579.2.531 Unknown [id number] 2.16.8 40.1.144159.3.579.2.531 Social History Date Type Detail Facility Unknown if ever smoked [facility] Other Start: 06-16-2023 Sex Assigned At [facility] Other Start: 06-16-2023 No illicit drug use No illicit drug use [facility] Work Phone: Comment on above: 1 can of pop daily.; Start: 06-16-2023 End: 10-06-2023 Tobacco smoking status NHIS Never smoked tobacco [facility] Start: 06-16-2023 End: 06-20-2023 Alcohol intake Lifetime non-drinker (finding) [facility] Start: 1995 Sex Assigned At Not on file [facility] Start: 1995 Sex Assigned At Male [facility] NEGATED: Highlighted rowStart: NINF History of tobacco use Passive smoker [facility] Goals Date Patient Goal Desired Activity /State Clinical Notes 03-25-2021 to 09-01-2023 Shaikh Kim MD - 06/16/2023 4:38 PM ESTSalyson Alvarez MD - 06/16/2023 3:45 PM EST Note Date & Type Note Facility 09-01-2023 Procedure note [facility] 06-16-2023 History of Present illness Narrative [...] weeks (around 06/30/2023). documented in this encounter [facility] 11-25-2022 Evaluation note Encounter Date Diagnosis [...] the Gitelman syndrome. Continue oral magnesium supplement. [facility] Other 04-21-2023 Evaluation note* Encounter Date Diagnosis Assessment Notes Treatment Notes Treatment Clinical Notes Aug, Hypomagnesemia (ICD-10 - E83.42) Aug, Hypokalemia (ICD-10 - E87.6) [facility] Other 07-06-2022 Evaluation note* Encounter Date Diagnosis Assessment Notes Treatment Notes Treatment Clinical Notes Nov, Leukocytosis (ICD-10 - D72.829) Nov, Hypomagnesemia (ICD-10 - E83.42) 06 Nov, 2021 Hypokalemia (ICD-10 - E87.6) [facility] Other 07-04-2022 Chief complaint Narrative - Reported* [...] or ischemic defects and follow-up as needed [facility] Work Phone: [phone] Chief complaint Narrative - Reported* WOOD HORN [...] or ischemic defects and follow-up as needed [facility] Work Phone: [phone] 440-849911-17-2021 Evaluation note* Encounter Date Diagnosis Assessment Notes [...] weeks to make sure it is resolved. [place] [facility] Other Evaluation [facility]No [facility] Other Evaluation note* Diagnosis Acute pain of right shoulder- Primary [facility] Diagnosis Infraspinatus strain, right, subsequent encounter- Primary [facility] Diagnosis Onset Date Resolution Status Abdominal pain acute [facility] Work Phone: Evaluation note* Diagnosis Onset Date Resolution Status Abdominal pain acute Gitelman syndrome acute Hypokalemia acute Hypomagnesemia acute [facility] Work Phone: Evaluation note* Diagnosis Onset Date Resolution Status Gitelman syndrome acute Hypokalemia acute Hypomagnesemia acute Gitelman syndrome acute Hypokalemia acute Hypomagnesemia acute Proteinuria acute [facility] Work Phone: History and physical note Author Carlos Johnson [facility] September 01, 2023 2:03pm Note Date/Time September 01, 2023 1:5 2pm [facility] [address] [place] [address] Gastroenterology H&P Signed Patient: Wood Horn MR#: [id number] : 1995 Acct:[id number] Age/Sex: 27 / M Adm Date: 4 Loc: Room: Type: [facility] Attending Dr: Carlos Johnson MD Copies [...] <Electronically signed by Carlos Johnson MD> 09/01/23 140 [facility] Work Phone: History general Narrative - [facility] Other History general Narrative - Reported* Type Description Date 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 Other Reason for referral (narrative)* Consultation (Routine) - Pending Review Specialty Diagnoses / Procedures Referred By Contac t Referred To Contact Orthopaedic Surgery Diagnoses Infraspinatus strain, right, subsequent encounter Shaikh Alvarez MD [address] [place] [address] Rey Cruz MD [address] [place] [address] Referral ID Status Reason Start Date Expiration Date Visits Requested Visits Authorized [id number] Pending Review Specialty Services Required 06/22/2023 12/19/2023 1 1 [facility] Healthcare Summary Purpose Family History No [...] contrast Shaikh Alvarez MD [address] [place] [address] [facility] [address] [place] [address] Phone: [phone] Referral ID Status Reason Start Date Expiration Date V isits Requested Visits Authorized [id number] Pending Review 06/16/2023 12/13/2023 1 1 Specialty Diagnoses / Procedures Referred By Sonny peters Referred To Contact Physical Therapy Diagnoses Acute pain of right shoulder Procedures FL OFFICE/OUTPATIENT NEW HIGH MDM 60 MINUTES Shaikh Alvarez MD [address] [place] [address] Edmundo Reina, PT [address] [address] Referral ID Status Reason Start Date Expiration Date Visits Requested Visits Authorized [id number] Pending Review Consult and Treat 06/16/2023 12/13/2023 [...] and content) DATE CREATED AUTHOR 10/28/2017 [facility] DATE CREATED AUTHOR AUTHOR'S ORGANIZ ATION 12/05/2021 [facility] DATE CREATED AUTHOR AUTHOR'S ORGANIZ ATION 06/28/2022 [facility] DATE CREATED AUTHOR AUTHOR'S ORGANIZ ATION 02/18/2024 [facility] DATE CREATED AUTHOR AUTHOR'S ORGANIZ ATION 04/12/2024 [facility] DATE CREATED AUTHOR AUTHOR'S ORGANIZ ATION 07/30/2024 [facility] EPIC REASON FOR [...] October 06, 2023 End: October 06, 2023 aMrcelino Villegas MD Attending Provider Active Start : [...] December 01, 2023 End: December 01, 2023 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 Relationship Specialty Start Date End Date Shaikh Alvarez MD [address] [place] [address] PCP - General Internal Medicine 06/16/23 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 Relationship Specialty Start Date End Date Shaikh Alvarez MD [address] [place] [address] PCP - General Internal Medicine 06/16/23 Team Status: Inactive Member Role Status Dates Nida Woods APRN DIRECTOR SALES AND MARKETING-C Primary Care Provider Active Start: July 18, [...] Provider Act pratik Start: September 01, 2023 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 Relationship Specialty Start Date End Date Shaikh Alvarez MD [address] [place] [address] PCP - General Internal Medicine 2/8/24 Goals (unrecognized section and content) Goals may [...] BE BASED ON THE PRIMARY CLINICAL RECORDS. [facility] Social [employer] [facility]. provides no warranty or guarantee of the accuracy or completeness of information in this document.
[2024-09-27 07:16] LABS: Albumin Level 3.6 g/dL (3.4-5.0); Anion Gap 13.2; Carbon Dioxide 29.2 mmol/L (21.0-32.0); Chloride 104 mmol/L (98-107); Estimated GFR (African America >60 (>=60 mL/min/1.73m^2); Estimated GFR (Non-African Ame >60 (>=60 mL/min/1.73m^2); Glucose 108 mg/dL (74-106); Magnesium 1.3 mg/dL (1.8-2.4); Phosphorus 2.3 mg/dL (2.6-4.7); Potassium 4.4 mmol/L (3.5-5.1); Sodium 142 mmol/L (136-145)
== END 2024-09-27 06:25 | disposition home or self-care (01) ==
LOC: LAB 06:27
PROVIDERS: PCP Nurse Practitioner Family; Visit Provider Internal Medicine
DX: E83.42 Hypomagnesemia (principal); E87.6 Hypokalemia
CPT/HCPCS: 36415; 80069; 83735

== ENCOUNTER 2024-11-06 07:30 | Outpatient (OUT) | payer SELFPAY ==
--- OUTSIDE RECORDS SUMMARY | 2024-11-05 07:58 | XMS_ITS | Encounter Summary ---
Author Organization [facility] Address [address] [facility] [place] [address] Care Team Providers Care Waxer Tender Name Role Phone Shaikh ONEYDA Alvarez Primary Care Provider [phone] Verena White MD Primary Care Provider [phone] Shahana Barron SURGICAL SCRUB TECHNICIAN Unavailable [phone] Encounter Details Date Type Department Care Team (Late st Contact Info) Description 06/27/2023 Orders Only [facility] [address] [place] [address] Shaikh Alvarez MD [address] [place] [address] Social History Tobacco Use Types Packs/Day Years Used Date Smoking Tobacco: Never Passive Smoke Exposure: Never Alcohol Use Standard Drinks/Week Comments Never 0 (1 standard drink = 0.6 oz pur e alcohol) PHQ-2 Answer Date Recorded Patient Health Questionnaire-2 Score 0 06/16/2023 Sex and Gender Information Value Date Recorded Sex Assigned at Not on file Legal Sex Male 6:35 PM EDT Gender Identity Not on file Sexual Orientation Not on file documented as of this encounter Plan of Treatment Not on file documented as of this encounter Procedures Procedure Name Priority Date/Time Associated Diagnosis Comments MRI SHOULDER RT WOUT CONTRAST Routine 06/21/2023 11:15 AM EST documented in this encounter Results * MRI SHOULDER RT WOUT CONTRAST (06/21/2023 11:15 AM EST) Anatomical Region Laterality Modality Radiographic Mara ging us Shaikh Kim CALL IMG XR PROCEDURES Final Result documented in this encounter Visit Diagnoses Not on filedocumented in this encounter Care Teams Waxer Tender Relationship Specialty Start Date End Date Shaikh Alvarez MD [address] [place] [address] PCP - General Internal Medicine 06/16/23 07/29/24 Verena White MD [address] [place] [address] PCP - General Family Medicine 07/30/24 Shahana Barron NP [address] [place] [address] Nurse Practitioner Family Medicine 07/31/24 documented as of this encounter
--- OUTSIDE RECORDS SUMMARY | 2024-11-05 07:58 | XMS_ITS | Clinical Summary ---
Author Organization [facility] Address [address] [place] [address] Care Team Providers Care Tariff Supervisor Name Role Phone Verena White MD Primary Care Provider [phone] Shahana Barron SENIOR ENGINEERING MANAGER Unavailable [phone] Allergies No known active allergies Medications aMILoride (Midamor) 5 MG tablet Take 10 mg by mouth in the morning and 10 mg before bedtime. Active Slow Magnesium/Calcium 70-117 MG tablet delayed-release Take 2 tablets by mouth in the morning and 2 tablets before bedtime. 3 Active potassium chloride CR (K-Tab) 20 MEQ ER tablet 3 Active fluticasone (Flonase) 50 MCG/ACT nasal sprayIndications:S easonal allergic rhinitis due to other allergic trigger Administer 2 sprays into each nostril Daily Shake gently. Before first use, prime pump. After use, clean tip and replace cap. 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 Seasonal allergic rhinitis 06/16/2023 Resolved Problems Problem Noted Date Diagnosed Date Resolved Date Bursitis of right shoulder 07/05/2024 0 07/30/2024 Tendinitis of right shoulder 07/05/2024 07/30/2024 Acute pain of right shoulder 06/16/2023 07/30/2024 Assessment & Plan (06/16/2023 4:38 PM EST): Right shoulder pain - ongoing for a [...] helps his pain and improve his ROM Encounters Date Type Department Care Team Description 09/30/2024 Abstract [facility] [address] [place] [address] Shahana Barron NP 08/09/2024 Telephone [facility] [address] [place] [address] Prema Remy LPN from Last 3 Months Immunizations Immunization Administration Dates Next Due DTP / HiB 04/02/1996,1995 DTaP, Unspecified 12/14/2000,02/06/1997,10/08/18 97 Hep B, Adolescent or Pediatric 10/08/1996,1995,1995 HiB, unspecified 02/06/1997,10/08/1996 IPV 12/14/2000 MMR 12/14/2000,02/06/1997 OPV 10/08/1996,04/02/1996,1995 Family History Medical History Relation Name Comments Prostate cancer Maternal Grandfather Hypertension Maternal Grandmother Diabetes Mother Hypertension Mother Diabetes Paternal Grandfather Heart disease Paternal Grandfather Hypertension Paternal Grandfather Kidney disease Paternal Grandfather Thyroid disease Paternal Grandfather Cancer Paternal Grandmother Hypertension Paternal Grandmother Kidney disease Paternal Grandmother Thyroid disease Paternal Grandmother Relation Name Status Comments Father Alive Maternal Grandfather Maternal Grandmother Mother Alive Paternal Grandfather Paternal Grandmother Social History Tobacco Use Types Packs/Day Years Used Date Smoking Tobacco: Never Passive Smoke Exposure: Never Smokeless Tobacco: Never Tobacco Cessation:Counseling Given: Not Answered Alcohol Use Standard Drinks/Week Comments Yes 0 (1 standard drink = 0.6 oz pur e alcohol) rarely PHQ-2 Answer Date Recorded Patient Health Questionnaire-2 Score 0 06/16/2023 Sex and Gender Information Value Date Recorded Sex Assigned at Not on file Legal Sex Male 6:35 PM EDT Gender Identity Not on file Sexual Orientation Not on file Last Filed Vital Signs Vital Sign Reading Time Taken Comments Blood Pressure 120/78 07/30/2024 9:26 AM EDT Pulse 80 07/30/2024 9:26 AM EDT Temperature 36.6 C (97.9 F) 06/16/2023 3:56 PM EST Respiratory Rate - - Oxygen Saturation 96% 06/16/2023 3:56 PM EST Inhaled Oxygen Concentration - - Weight 109 kg (240 lb 12.8 oz) 07/30/2024 9:26 A M EDT Height 172.7 cm (5' 8 ) 06/16/2023 3:56 PM EST Body Mass Index 36.61 06/16/2023 3:56 PM EST Plan of Treatment Health Maintenance Due Date Last Done Comments Influenza Vaccine (Season Ended) 2025 Insurance [employer] Care Teams Tariff Supervisor Relationship Specialty Start Date End Date Verena White MD PCP - General Family Medicine 07/30/24 Shahana Barron NP [address] [place] [address] Nurse Practitioner Family Medicine 07/31/24
--- OUTSIDE RECORDS SUMMARY | 2024-11-05 07:58 | XMS_ITS | Encounter Summary ---
Author Organization [facility] Address [address] [place] [address] Care Team Providers Care Nut Grader Name Role Phone Shaikh ONEYDA Alvarez Primary Care Provider Verena White MD Primary Care Provider [phone] Shahana Barron GENERAL SERVICE OFFICER Unavailable [phone] Encounter Details Date Type Department Care Team (Late st Contact Info) Description 06/21/2023 Clinisync Result Encounter [facility] External Department Unsolicited Shaikh Alvarez MD [address] [place] [address] Social History Tobacco Use Types Packs/Day Years [...] Procedure Name Priority Date/Time Associated Diagnosis Comments MR SHOULDER RIGHT WO IV CONTRAST 06/21/2023 3:35 PM EST documented in this encounter Results * MR shoulder right wo IV contrast (06/21/2023 3:35 PM EST) Anatomical Region Laterality Modality Upper Extremities, Shoulder Right Magn etic Resonance 06/21/2023 3:35 PM EST Narrative 06/21/2023 3:37 PM EST [address] [address] Magnetic Resonance Report Signed Patient: WOOD MENDOZA MR#: [id number] : 1995 Acct:[id number] Age/Sex: 27 / M ADM Date: 06/21/23 Loc: MRI Attending Dr: Shaikh Kim Elliott Ordering Physician: Shaikh Earl Alvarez Date of Service: 06/21/23 Procedure(s): MR shoulder RT wo con Accession Number(s): [id number] cc: Shaikh Earl Alvarez [address] [address] Patient Name: WOOD MENDOZA MRN: [id number] date: 1995 Sex: M Assigned Patient Location: MRI Current Patient Location: MRI Accession/Order Number: [id number] Exam Date: 06/21/2023 14:38 Report Date: 06/21/2023 15:35 At the request of: SHAIKH KIM Procedure: MR shoulder RT wo con MR shoulder RT wo con, 06/21/2023 2:38 PM EST INDICATION: acute pain of shoulder M25.511 COMPARISON: X-ray of the right shoulder dated 06/15/2023 TECHNIQUE: Multiplanar and multisequential MR images of the right shoulder were obtained without contrast. FINDINGS: There are mild hypertrophic degenerative changes of AC joint. There is no os acromiale. No Hill-Sachs is noted. No acute fracture or dislocation is noted. Enthesopathy cysts within the lesser tuberosity are noted. The quadrilateral space and supraspinous notch are unremarkable. The T2 prolongation within the insertional portions of infraspinatus may suggest tendinosis. The long head of biceps is unremarkable. The teres minor and supraspinatus and subscapularis are unremarkable. No fatty muscle atrophy is noted. The labrum shows no significant abnormality. There is trace intra articular joint effusion. MR/MR shoulder RT wo con IMPRESSION: Mild insertional tendinosis of infraspinatus. No high-grade tear. Electronically authenticated by: GURU TRAN Date: 06/21/2023 15:35 Dictated By: Guru Tran M.D. Signed By: 06/21/23 1537 DD/ 1535 TD/TT: Manufacturers Representative: Procedure Note Radiology, Radiologist, MD - 06/21/2023 [place] [address] Magnetic Resonance Report Signed Patient: WOOD MENDOZA LMR#: [id number] : 1995Acct:[id number] Age/Sex: 27 / MADM Date: 06/21/23 Loc: MRI Attending Dr: Shaikh Kim Elliott Ordering Physician: Shaikh Earl Alvarez Date of Service: 06/21/23 Procedure(s): MR shoulder RT wo con Accession Number(s): [id number] cc: Shaikh Earl Alvarez [address] [place] [address] Patient Name: WOOD MENDOZA MRN: [id number] date: 1995 Sex: M Assigned Patient Location: MRI Current Patient Location: MRI Accession/Order Number: [id number] Exam Date: 06/21/2023 14:38 Report Date: 06/21/2023 15:35 At the request of: SHAIKH KIM Procedure: MR shoulder RT wo con MR shoulder RT wo con, 06/21/2023 2:38 PM EST INDICATION: acute pain of shoulder M25.511 COMPARISON: X-ray of the right shoulder dated 06/15/2023 TECHNIQUE: Multiplanar and multisequential MR images of the right shoulder wereobtained without contrast. FINDINGS: There are mild hypertrophic degenerative changes of AC joint. There is no os acromiale. No Hill-Sachs is noted. No acute fracture or dislocation is noted. Enthesopathy cysts within the lesser tuberosity are noted. The quadrilateral space and supraspinous notch are unremarkable. The T2 prolongation within the insertional portions of infraspinatus may suggest tendinosis. The long head of biceps is unremarkable. The teres minor and supraspinatus and subscapularis are unremarkable. Nofatty muscle atrophy is noted. The labrum shows no significant abnormality. There is trace intra articular joint effusion. MR/MR shoulder RT wo con IMPRESSION: Mild insertional tendinosis of infraspinatus. No high-grade tear. Electronically authenticated by: GURU TRAN Date: 06/21/2023 15:35 Dictated By: Guru Tran M.D. Signed By:06/21/23 1537 DD/ 1535 TD/TT: Manufacturers Representative: us Shaikh Kim CALL IMG MRI PROCEDURES Final Result documented in this encounter Visit Diagnoses Not on filedocumented in this encounter Care Teams Nut Grader Relationship Specialty Start Date End Date Shaikh Alvarez MD [address] [place] [address] PCP - General Internal Medicine 06/16/23 07/29/24 Verena White MD [address] [place] [address] PCP - General Family Medicine 07/30/24 Shahana Barron NP [address] [place] [address] Nurse Practitioner Family Medicine 07/31/24 documented as of this encounter
--- OUTSIDE RECORDS SUMMARY | 2024-11-05 07:58 | XMS_ITS | Encounter Summary ---
Author Organization [facility] Address [address] [place] [address] Care Team Providers Care Packer Operator Automatic Name Role Phone Shaikh ONEYDA Alvarez Primary Care Provider [phone] Verena White MD Primary Care Provider [phone] Shahana Barron JUNIOR FINANCIAL ANALYST Unavailable [phone] Encounter Details Date Type Department Care Team (Late st Contact Info) Description 09/01/2023 Orders Only [facility] [address] [place] [address] Shaikh Alvarez MD [address] [place] [address] Social History Tobacco Use Types Packs/Day Years [...] Procedure Name Priority Date/Time Associated Diagnosis Comments MISCELLANEOUS LAB TEST Routine 09/01/2023 2:22 PM EDT documented in this encounter Results * - Miscellaneous Test (09/01/2023 2:22 PM EDT) us Shaikh Kim CALL LAB BLOOD ORDERABLES Final Resu lt documented in this encounter Visit Diagnoses Not on filedocumented in this encounter Care Teams Packer Operator Automatic Relationship Specialty Start Date End Date Shaikh Alvarez MD [address] [place] [address] PCP - General Internal Medicine 06/16/23 07/29/24 Verena White MD [address] [place] [address] PCP - General Family Medicine 07/30/24 Shahana Barron NP [address] [place] [address] Nurse Practitioner Family Medicine 07/31/24 documented as of this encounter
--- OUTSIDE RECORDS SUMMARY | 2024-11-05 07:58 | XMS_ITS | Encounter Summary ---
[facility] Address [address] [place] [address] Care Team Providers Care Structures Assembler Name Role Phone Maribell Johnson MD Primary Care Pr ovid Reason for Visit * Reason Comments Medication Refill Encounter Details Date Type Department Care Team (Late st Contact Info) Description 03/20/2017 Refill [facility] [address] [place] [id number] Salomon Lindsey PA-C [address] [place] [address] Medication Refill Social History Tobacco Use Types Packs/Day Years Used Date Smoking Tobacco: Never Alcohol Use Standard Drinks/Week Comments Not Asked 0 (1 standard drink = 0.6 oz pur e alcohol) Sex and Gender Information Value Date Recorded Sex Assigned at Not on file Legal Sex Male 11:50 AM EST Gender Identity Not on file Sexual Orientation Not on file documented as of this encounter Plan of Treatment Not on file documented as of this encounter Visit Diagnoses Diagnosis 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
--- OUTSIDE RECORDS SUMMARY | 2024-11-05 07:58 | XMS_ITS | Encounter Summary ---
Author Organization [facility] Address [address] [place] [address] Care Team Providers Care Rough Rib Grader Name Role Phone Maribell Johnson MD Primary Care Pr ovid Reason for Visit * Reason Comments Medication Refill Encounter Details Date Type Department Care Team (Late st Contact Info) Description 05/16/2012 Refill [facility] Pediatric Nephrology Spec [address] [facility] [address] [place] [phone] Isabell Collins MD [address] [place] [address] Medication Refill Social History Tobacco Use Types [...] as of this encounter Visit Diagnoses Diagnosis Gitelman syndrome- Primary Disorders of magnesium metabolism documented in this encounter Care Teams Rough Rib Grader Relationship Specialty Start Date End Date Maribell Johnson MD PCP - General 07/30/11 documented as of this encounter
--- OUTSIDE RECORDS SUMMARY | 2024-11-05 07:58 | XMS_ITS | Clinical Summary ---
Author Organization [facility] Address [address] [place] [address] Phone Care Team Providers Care Therapist Occupational Name Role Phone Unavailable Primary Care Provider Unavailabl e Social History Tobacco Use Types Packs/Day Years Used Date Smoking Tobacco: Never Assessed Sex and Gender Information Value Date Recorded Sex Assigned at Not on file Legal Sex Male 8:23 PM EST Gender Identity Not on file Sexual Orientation Not on file Last Filed Vital Signs Vital Sign Reading Time Taken Comments Blood Pressure 118/88 12/02/2021 9:05 AM EDT Pulse 66 12/02/2021 9:04 AM EDT Temperature - - Respiratory Rate - - Oxygen Saturation - - Inhaled Oxygen Concentration - - Weight 98.4 kg (217 lb) 12/02/2021 9:04 AM EDT Height 177.8 cm (5' 10 ) 12/02/2021 9:04 AM EDT Body Mass Index 31.14 12/02/2021 9:04 AM EDT Plan of Treatment Health Maintenance Due Date Last Done Comments HIV Screening 1995 Lipid Panel 1995 Yearly Adult Physical 1995 MMR Vaccines (1 of 1 - Stand polo series) 10/15/1996 Varicella Vaccines (1 of 2 - 13+ 2-dose series) 10/15/2008 Hepatitis C Screening 10/15/2013 Hepatitis B Vaccines (1 of 3 - 19+ 3-dose series) 10/15/2014 DTaP/Tdap/Td Vaccines (1 - Tdap) 10/15/2017 COVID-19 Vaccine (1 - 2023-2 5 season) 2024 Influenza Vaccine (Season Ended) 2025 Zoster Vaccines (1 of 2) 10/15/2045 HIB Vaccines Aged Out No longer eligi ble based on patient's age to complete this topic HPV Vaccines (No Doses Required) Completed Hepatitis A Vaccines Aged Out No long er eligible based on patient's age to complete this topic IPV Vaccines Aged Out No longer eligi ble based on patient's age to complete this topic Meningococcal Vaccine Aged Out No radha eugene eligible based on patient's age to complete this topic Pneumococcal Vaccine: Pediat rics and At-Risk Adult Patients Aged Out No longer sondra gible based on patient's age to complete this topic Rotavirus Vaccines Aged Out No longer eligible based on patient's age to complete this topic
--- OUTSIDE RECORDS SUMMARY | 2024-11-05 07:58 | XMS_ITS | Patient Health Record ---
Author Organization [facility] Address [address] [place] [address] Care Team Providers Care Traffic Or System Dispatcher Name Role Phone Rey Cruz Unavailable [phone] SHAIKH COYNE Unavailable Unavailable Allergies No Known Allergies Reason For Referral No Information Medications Medication SIG (Take, Route, Fr equency, Duration) Notes Start Date End Date Status predniSONE Active potassium chloride A ctive amLODIPine Active Social History Tobacco Use: Social History Observation Description Date Details (start date - stop date) Never Smoker NA - NA Smoking History Question Answer Notes Smoking Status NonSmoker Alcohol Screening Question Answer Notes Did you have a drink containging alcohol in the last year? No Points 0 Interpretation Negative Problems Problem Type SNOMED Code ICD Code Onset Dates Problem Status W/U Status Risk Notes Problem Bursitis of right shoulder (991504877128 107) Bursitis of right shoulder (M75.51) Active confirmed Problem Right shoulder tendonitis (M77.8) Active confirmed Plan Of Treatment No Information Insurance Providers Payer Name Payer Address Payer Phone Subscriber Number Group Number Insured Name Patient Relationship to Insured Coverage Start Date Coverage End Date [employer] CLAIMS [address] [place] [phone] [id number] SOFIE MENDOZA Self - patient is the insured Medical (General) History Medical History History ICD Code CPAP Machine:: No Healthcare worker: No Latex Allergy: No Have you been in close conta ct with someone who has had MRSA within the last year?: No Have you ever had or presently have MRSA ?: No Have you been seen by a dentist in the l ast year?: No Do you have any dental probl ems i.e. Broken, loose, or chipped teeth, absess, gum disease?: No
--- OUTSIDE RECORDS SUMMARY | 2024-11-05 07:58 | XMS_ITS | Encounter Summary ---
Author Organization [facility] Address [address] [place] [address] Phone Care Team Providers Care Nutritional Assistant Name Role Phone Unavailable Primary Care Provider Unavailabl e Encounter Details Date Type Department Care Team (Late st Contact Info) Description 11/13/2021 Orders Only [facility] [address] [place] [address] Conversion, Onbase Social History Tobacco Use Types Packs/Day Years Used Date Smoking Tobacco: Never Assessed Sex and Gender Information Value Date Recorded Sex Assigned at Not on file Legal Sex Male 8:23 PM EST Gender Identity Not on file Sexual Orientation Not on file documented as of this encounter Plan of Treatment Scheduled Orders Name Type Priority Associated Diagnoses Orde r Schedule OUTSIDE LAB SCAN Lab Ordered: 11/13/2021 documented as of this encounter Visit Diagnoses Not on filedocumented in this encounter
--- OUTSIDE RECORDS SUMMARY | 2024-11-05 07:58 | XMS_ITS | Encounter Summary ---
Author Organization [facility] Address [address] [facility] [place] [address] Care Team Providers Care Video Production Specialist Name Role Phone Verena White MD Primary Care Provider [phone] Shahana Barron RETAIL SALES ASSOCIATE Unavailable [phone] Encounter Details Date Type Department Care Team (Late st Contact Info) Description 09/30/2024 Abstract [facility] [address] [place] [address] Shahana Barron NP [address] [place], [place] [id number] Social History Tobacco Use Types Packs/Day Years Used Date Smoking Tobacco: Never Passive Smoke Exposure: Never Smokeless Tobacco: Never Alcohol Use Standard Drinks/Week Comments Yes 0 [...] on filedocumented in this encounter Care Teams Video Production Specialist Relationship Specialty Start Date End Date Verena White MD PCP - General Family Medicine 07/30/24 Shahana Barron NP [address] [place] [address] Nurse Practitioner Family Medicine 07/31/24 documented as of this encounter
--- OUTSIDE RECORDS SUMMARY | 2024-11-05 07:58 | XMS_ITS | Encounter Summary ---
Author Organization [facility] Address [address] [facility] [place] [address] Care Team Providers Care Poultry Hanger Name Role Phone Shaikh ONEYDA Alvarez Primary Care Provider [phone] Verena White MD Primary Care Provider [phone] Shahana Barron FINANCIAL AID DIRECTOR Unavailable [phone] Encounter Details Date Type Department Care Team (Late st Contact Info) Description 07/25/2023 Orders Only [facility] [address] [place] [address] Shaikh Alvarez MD [address] [place] [id number] Social History Tobacco Use Types Packs/Day Years [...] Associated Diagnosis Comments MISCELLANEOUS LAB TEST Routine 07/23/2023 12:43 PM EDT documented in this encounter Results * - Miscellaneous Test (07/23/2023 12:43 PM EDT) us Shaikh Kim CALL LAB BLOOD ORDERABLES Final Resu lt documented in this encounter Visit Diagnoses Not on filedocumented in this encounter Care Teams Poultry Hanger Relationship Specialty Start Date End Date Shaikh Alvarez MD [address] [place] [address] PCP - General Internal Medicine 06/16/23 07/29/24 Verena White MD [address] [place] [address] PCP - General Family Medicine 07/30/24 Shahana Barron NP [address] [place] [address] Nurse Practitioner Family Medicine 07/31/24 documented as of this encounter
--- OUTSIDE RECORDS SUMMARY | 2024-11-05 07:58 | XMS_ITS | Clinical Summary ---
Author Organization [facility] Address [id number] [address] [place] [address] Care Team Providers Care Wirer Passenger Car Name Role Phone Maribell Young MD Primary Care Provider [phone] Social History Tobacco Use Types Packs/Day Years Used Date Smoking Tobacco: Never Assessed Childcare Answer Date Recorded Childcare Unknown 10/18/2018 Employment Answer Date Recorded Employment Unknown 10/18/2018 Purpose - Life Answer Date Recorded Purpose and direction in life Unknown Sex and Gender Information Value Date Recorded Sex Assigned at Not on file Legal Sex Male 11:51 AM EDT Gender Identity Not on file Sexual Orientation Not on file Plan of Treatment Health Maintenance Due Date Last Done Comments DTaP,Tdap and Td Vaccines (6 - Tdap) 10/15/2006 12/14/2000, 02/06/1997, 10/08/1996, Additional history exists Depression Screening 2007 Tobacco Screening 2007 Adult BMI Screening 10/15/2013 COVID-19 Vaccine (3 - 2023-2 5 season) 2024 10/04/2020, 09/07/2020 Influenza Vaccine 01/07/2025 Medical Devices Not on file Insurance [facility] MEDICAID Care Teams Wirer Passenger Car Relationship Specialty Start Date End Date Maribell Young MD [address] [place] [address] PCP - General Family Medicine 04/06/17
--- OUTSIDE RECORDS SUMMARY | 2024-11-05 07:58 | XMS_ITS | Clinical Summary ---
Author Organization [facility] Address [address] [place] [address] Care Team Providers Care Surveillance Manager Name Role Phone Maribell Johnson MD Primary Care Pr ovider Allergies No known active allergies Medications Magnesium Oxide 500 MG (LAX) TABSIndications :Gitelman syndrome Take 1,000 mg by mouth three times daily. 180 tablet 3 10/18/2011 Active fluticasone (FLONASE) 50 MCG/ACT nasal sprayIndication s:Nonorganic enuresis,Gitelm an syndrome 1 spray by Nasal route daily. Active clarithromycin (BIAXIN) 125 MG/5ML suspensionIndic ations:Nonorgan ic enuresis,Gitelm an syndrome Take by mouth 2 times daily. Active loratadine (CLARITIN) 10 MG tabletIndicatio ns:Nonorganic enuresis,Gitelm an syndrome Take 10 mg by mouth daily. Active Magnesium Oxide 500 MG TABSIndications :Gitelman syndrome TAKE 2 TABLETS 3 TIMES DAILY 180 tablet 3 05/16/2012 Active Active Problems Problem Noted Date Diagnosed Date Gitelman syndrome Nonorganic enuresis Social History Tobacco Use Types Packs/Day Years [...] Sign Reading Time Taken Comments Blood Pressure 133/63 03/20/2012 10:33 AM EST Pulse 74 03/20/2012 10:33 AM EST Temperature 36.4 C (97.5 F) 03/20/2012 10:33 AM EST Respiratory Rate - - Oxygen Saturation - - Inhaled Oxygen Concentration - - Weight 68.9 kg (152 lb) 03/20/2012 10:33 AM EST Height 169.7 cm (5' 6.81 ) 03/20/2012 10:[address] Body Mass Index 23.94 03/20/2012 10:33 AM EST Plan of Treatment Not on file Care Teams Surveillance Manager Relationship Specialty Start Date End Date Maribell Johnson MD PCP - General 07/30/11
--- OUTSIDE RECORDS SUMMARY | 2024-11-05 08:10 | XMS_ITS | CCD ---
Author Organization [facility] Care Team Providers Care [place] Operator Name Role Phone OSINOWO, OSIYEMI Unavailable Unavailable OSINOWO, OSIYEMI Unavailable Unavailable NADAUD, ESTUARDO Unavailable Unavailable NADAUD, ESTUARDO Unavailable Unavailable MAVERICK, MARBELLA Unavailable Unavailable MAVERICK, MARBELLA Unavailable Unavailable DAQUAN, GRICEL Unavailable Unavailable DAQUAN, GRICEL Unavailable Unavailable Andra, Marcelino Unavailable Unavailable Unavailable ANDRA, MARCELINO Admitting Unavailable ANDRA, MARCELINO Attending Unavailable CHUCK, NDIA Primary Care Unavailable ANDRA, MARCELINO Consulting Unavailable [...] Consulting Unavailable CHUCK, NIDA Primary Care Unavailable DR ESTUARDO BENSON Admitting Unavailable MARCELINO, DR ESTUARDO Marquez Attending [...] Care Provider MD Carlos Johnson Attending Provider [phone] MD Eva Alvarez Primary Care Provider [phone] Chuck YOSTCNida Attending Unavailable Nida Sullivan Primary Care Unavailable Shaikh Alvarez MD Primary Care Provider [phone] Asaad, Imad Attending Unavailable Shaikh Alvarez Primary Care Unavailable Asaad, Imad Admitting Unavailable Shaikh Alvarez Primary Care Unavailable Mally, Bhavesh Admitting Unavailable Toro Baly Attending Unavailable Asaad, Imad Admitting Unavailable Asaad, Imad Attending Unavailable Shaikh Alvarez Primary Care Unavailable Asaad, Imad Attending Unavailable Shaikh Alvarez Primary Care Unavailable Asaad, Imad Admitting Unavailable SHAHANA ROE Attending Unavailable JEREMIAH MERRITT Attending Unavailable SHAIKH ALVAREZ Referring Unavailable OSVALDO LEE Attending Unavailable SHAIKH ALVAREZ Referring Unavailable Medications Current Medications Medication Drug Class(es) Dates Sig (Normalized) Sig (Original) aMILoride hydrochloride 5 mg oral tablet (20 sources) Potassium-sparin g Diuretic Start: 07-18-2023 take 1 tablet by mouth twice daily Amiloride 5 mg tablet Active 10 MG PO Twice daily July 18, 2023 12:00am Start: 07-18-2023 take 10 mg by mouth twice candi y Amiloride Active 10 MG PO Twice daily July 18, 2023 12:00am take 2 tablets by mo [facility] in the morning aMILoride (Midamor) 5 MG tablet Take 10 mg by mouth in the morning and 10 mg before bedtime. Active take 2 tablets by mo [facility] every twelve hours magnesium chloride 535 mg [...] 12-25-2018 magnesium oxide 400 mg oral capsule (8 sources) Start: 07-18-2023 take 2 capsules by mouth twice daily Magnesium Oxide 400 mg magnesium capsule Active 800 MG PO Twice daily July 18, 2023 12:00am Start: 07-18-2023 take 800 mg by mouth twice juan ly Magnesium Oxide Active 800 MG PO Twice daily July 18, 2023 12:00am Magnesium Oxide 400 MG CAPS TAKE 2 CAPSULE Twice daily Quantity: 0 Refills: 0 Ordered: 02-Dec-2021 DO Active omeprazole 40 mg delayed release oral capsule (6 sources) Proton Pump Inhibitor Start: 09-01-2023 End: 12-01-2023 take 1 capsule by mouth once daily as needed Omeprazole 40 mg capsule,delayed release(DR/EC) Active 40 MG PO Daily as needed December 01, 2023 1:23pm potassium chloride 20 meq extended release oral tablet (20 sources) Start: 07-18-2023 take 6 tablets by mouth twice daily Potassium Chloride 20 mEq tablet extended release Active 0 PO Twice daily July 18, 2023 12:00am 6 tablets orally twice daily; Start: 11-25-2022 potassium chlo ride CR (K-Tab) 20 MEQ ER tablet 11/25/2022 Active take 6 tablets by [facility] every twelve hours Potassium Chloride ER 20 MEQ 6 tablets Orally bid for 90 day(s) Active take 6 tablets by [facility] every twelve hours predniSONE 20 mg oral [...] Date Documented Da te Episodic/Chronic Abdominal pain (15 sources) Abdominal pain; Translations: [Unspecified abdominal pain] Onset: 07-23-2023 07-18-2023 Episodic Contraceptive and procreative management (1 source) Encounter for fertility testing; Translations: [Encounter for fertility testing] Onset: 03-31-2024 Episodic Diseases of white blood cells (16 sources) Leukocytosis; Translations: [Elevated white blood cell count, unspecified] Onset: 03-25-2021 Resolved: 11-11-2021 Chronic Fluid and electrolyte disorders (17 sources) Hypokalemia; Translations: [Hypokalemia] Onset: 03-25-2021 Resolved: 11-11-2021 Episodic Genitourinary symptoms and ill-defined conditions (3 sources) Proteinuria; Translations: [Proteinuria, unspecified] 11-15-2023 Episodic Other diseases of kidney and ureters (5 sources) 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; Translations: [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] Onset: 06-07-2017 Chronic Other gastrointestinal disorders (8 sources) Diarrhea; Translations: [Diarrhea, unspecified] 07-18-2023 Episodic Other liver diseases (2 sources) Raised cardiac enzyme or marker; Translations: [Other nonspecific abnormal serum enzyme levels] Episodic Other nutritional; endocrine; and metabolic disorders (16 sources) Gitelman syndrome; 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 Other nutritional; endocrine; and metabolic disorders (15 sources) Hypomagnesemia; Translations: [Disorders of magnesium metabolism] Onset: 03-25-2021 Resolved: 11-11-2021 Chronic Other nutritional; endocrine; and metabolic disorders (2 sources) Obesity; Translations: [Obesity, unspecified] Chronic Other nutritional; endocrine; and metabolic disorders (5 sources) Hypomagnesemia; Translations: [Disorders of magnesium metabolism] [...] 11-08-2021 Episodic Other aftercare (1 source) Other halfway (current) drug therapy; Translations: [OTH CORRECTION CURRENT DRUG THERAPY] Onset: 10-14-2021 Episodic Other [...] Test Name Value Interpretation Reference Range Facility Estimated glomerular filtrat ion rate (GFR) non- Americanon 09-27-2024 GFR/1.73 sq M.predicted among non-blacks MDRD (S/P/Bld) [Vol rate/Area] Estimated glomerular filtration rate (GFR) non- >=60 mL/min/1.73 m 2 [facility] Laboratory - Chemistry and C hemistry - challengeon 09-27-2024 Albumin [Mass/Vol] 3.6 g/dL 3.4-5.0 [facility] Calcium [Mass/Vol] 9.0 mg/dL 8.5-10.1 [facility] Chloride [Moles/Vol] 104 mmol/L 98-107 [facility] CO2 [Moles/Vol] 29.2 mmol/L 21.0-32.0 [facility] Creatinine [Mass/Vol] 0.75 mg/dL 0.70-1.30 [facility] GFR/1.73 sq M.predicted MDRD (S/P/Bld) [Vol rate/Area] mL/min/{1.73_m2} >=60 mL/min/1.73 m 2 [facility] Glucose [Mass/Vol] 108 mg/dL High 74-106 [facility] Magnesium [Mass/Vol] 1.3 mg/dL Low 1.8-2.4 [facility] Potassium [Moles/Vol] 4.4 mmol/L 3.5-5.1 [facility] Sodium [Moles/Vol] 142 mmol/L 136-145 [facility] Urea nitrogen [Mass/Vol] 15.0 mg/dL 7.0-18.0 [facility] Urea nitrogen/Creatinine [Mass ratio] 20.0 mg/mg [facility] No Panel Informationon 09-27 Phosphorus Level 2.3 mg/dL Low 2.6-4.7 [facility] Serum or plasma anion gap de terminationon 09-27-2024 Anion gap [Moles/Vol] Serum or plasma an ion gap determination [facility] Semen Analysis, Fertilityon 03-31-2024 Debris/Round Cells Many Normal [facility] Comment on above: Order Comment: Metho d of Collection:: Masturbation Has the patient had a vasectomy?: N Type of Specimen Container:: Sterile Container Abstinence Period:: 7 DAYS Kept at body temperature?: Y Any Collection or Transport Problems?: N/A Performed By: #### S EMCOMP #### [facility] [address] [place] [address] [place] Immotile Sperm 38 % Normal [facility] Comment on above: Order Comment: Metho d of Collection:: Masturbation Has the patient had a vasectomy?: N Type of Specimen Container:: Sterile Container Abstinence Period:: 7 DAYS Kept at body temperature?: Y Any Collection or Transport Problems?: N/A Performed By: #### S EMCOMP #### [facility] [address] [place] [id number] [place] Non-Progression Sperm Motili 6 % Normal [facility] Comment on above: Order Comment: Metho d of Collection:: Masturbation Has the patient had a vasectomy?: N Type of Specimen Container:: Sterile Container Abstinence Period:: 7 DAYS Kept at body temperature?: Y Any Collection or Transport Problems?: N/A Performed By: #### S EMCOMP #### [facility] [address] [place] [id number] [facility] Normal Sperm Morphology 12.0 % Normal >=4.0 [facility] Comment on above: Order Comment: Metho d of Collection:: Masturbation Has the patient had a vasectomy?: N Type of Specimen Container:: Sterile Container Abstinence Period:: 7 DAYS Kept at body temperature?: Y Any Collection or Transport Problems?: N/A Performed By: #### S EMCOMP #### [facility] [address] [place] [id number] [place] Rapid Progression Sperm Motili 56 % Normal [facility] Comment on above: Order Comment: Metho d of Collection:: Masturbation Has the patient had a vasectomy?: N Type of Specimen Container:: Sterile Container Abstinence Period:: 7 DAYS Kept at body temperature?: Y Any Collection or Transport Problems?: N/A Performed By: #### S EMCOMP #### [address] Semen Appearance Normal Normal Normal [facility] Comment on above: Order Comment: Metho d of Collection:: Masturbation Has the patient had a vasectomy?: N Type of Specimen Container:: Sterile Container Abstinence Period:: 7 DAYS Kept at body temperature?: Y Any Collection or Transport Problems?: N/A Performed By: #### S EMCOMP #### [address] Semen Comment . Normal [facility] Comment on above: Order Comment: Metho d of Collection:: Masturbation Has the patient had a vasectomy?: N Type of Specimen Container:: Sterile Container Abstinence Period:: 7 DAYS Kept at body temperature?: Y Any Collection or Transport Problems?: N/A Result Comment: No A bnormal specimen characteristics noted. PERFORMED BY: [place] [address] PATHOLOGIST PRINT ROOM WORKER YOAV DE LEÓN M.D. Performed By: #### S EMCOMP #### [address] Semen Liquefaction Abnormal Critically abnormal <=60 min [facility] Comment on above: Order Comment: Metho d of Collection:: Masturbation Has the patient had a vasectomy?: N Type of Specimen Container:: Sterile Container Abstinence Period:: 7 DAYS Kept at body temperature?: Y Any Collection or Transport Problems?: N/A Performed By: #### S EMCOMP #### [address] Sem[place] pH 8.5 Normal >=7.2 [facility] Comment on above: Order Comment: Metho d of Collection:: Masturbation Has the patient had a vasectomy?: N Type of Specimen Container:: Sterile Container Abstinence Period:: 7 DAYS Kept at body temperature?: Y Any Collection or Transport Problems?: N/A Performed By: #### S EMCOMP #### [facility] [address] [place] [id number] [place] Semen Viscosity Abnormal Critically abnormal Normal [facility] Comment on above: Order Comment: Metho d of Collection:: Masturbation Has the patient had a vasectomy?: N Type of Specimen Container:: Sterile Container Abstinence Period:: 7 DAYS Kept at body temperature?: Y Any Collection or Transport Problems?: N/A Performed By: #### S EMCOMP #### [address] Sem[place] Volume 4.5 mL Normal >=1.5 [facility] Comment on above: Order Comment: Metho d of Collection:: Masturbation Has the patient had a vasectomy?: N Type of Specimen Container:: Sterile Container Abstinence Period:: 7 DAYS Kept at body temperature?: Y Any Collection or Transport Problems?: N/A Performed By: #### S EMCOMP #### [place] [address] [place] Sperm Concentration 59.3 Normal >=15 [facility] Comment on above: Order Comment: Metho d of Collection:: Masturbation Has the patient had a vasectomy?: N Type of Specimen Container:: Sterile Container Abstinence Period:: 7 DAYS Kept at body temperature?: Y Any Collection or Transport Problems?: N/A Performed By: #### S EMCOMP #### [place] [address] [place] Total Motility (NM+PROOF MACHINE OPERATOR) 62.0 % Normal >=40 (NM+PROOF MACHINE OPERATOR) [facility] Comment on above: Order Comment: Metho d of Collection:: Masturbation Has the patient had a vasectomy?: N Type of Specimen Container:: Sterile Container Abstinence Period:: 7 DAYS Kept at body temperature?: Y Any Collection or Transport Problems?: N/A Performed By: #### S EMCOMP #### [facility] [address] [place] [id number] [place] WBC Concent, Semen <1.0 Normal <1.0 [facility] Comment on above: Order Comment: Metho d of Collection:: Masturbation Has the patient had a vasectomy?: N Type of Specimen Container:: Sterile Container Abstinence Period:: 7 DAYS Kept at body temperature?: Y Any Collection or Transport Problems?: N/A Performed By: #### S EMCOMP #### [address] ALL MAGNESIUMon 03-20-2024 Magnesium [Mass/Vol] 1.4 mg/dL Low 1.8 - 2 .4 mg/dL [facility] ALL RENAL FUNCTION PANELon 1 05-20-2023 Albumin [Mass/Vol] 3.6 g/dL 3.4 - 5.0 g/dL [facility] Anion gap [Moles/Vol] 11.9 mmol/L [facility] Calcium [Mass/Vol] 9.2 mg/dL 8.5 - 10. 1 mg/dL [facility] Chloride [Moles/Vol] 99 mmol/L 98 - 10 7 mmol/L [facility] CO2 [Moles/Vol] 31.9 mmol/L 21.0 - 32.0 mmol/L [facility] Creatinine [Mass/Vol] 0.82 mg/dL 0.70 - 1.30 mg/dL [facility] GFR/1.73 sq M.predicted CKD-EPI (S/P/Bld) [Vol rate/Area] >60 >=60 mL/min/1.73 m 2 [facility] Glucose [Mass/Vol] 98 mg/dL 74 - 106 mg/dL [facility] Phosphate [Mass/Vol] 2.6 mg/dL 2.6 - 4 .7 mg/dL [facility] Potassium [Moles/Vol] 2.8 mmol/L Critically low 3.5 - 5.1 mmol/L [facility] Comment on above: RESULTS CALLED TO ISAC AMOR Sodium [Moles/Vol] 140 mmol/L 136 - 145 mmol/L [facility] TB EGFR-NON AF GREEK >60 >=60 mL/min/1.73 m 2 [facility] Urea nitrogen [Mass/Vol] 12 mg/dL 7.0 - 18.0 mg/dL [facility] Urea nitrogen/Creatinine [Mass ratio] 14.6 mg/mg [facility] CBC WITH PLATELET NO DI FFERENTIALon 03-20-2024 Erythrocyte distribution width (RBC) [Ratio] 12.6 % 11.0 - 15.0 % [facility] Hematocrit (Bld) [Volume fraction] 45.8 % 42.0 - 54.0 % [facility] Hemoglobin (Bld) [Mass/Vol] 15.6 g/dL 14.0 - 18.0 g/dL [facility] Interpretation and review of laboratory results Abnormal [facility] MCH (RBC) [Entitic mass] 27.3 pg 25.9 - 34.0 pg [facility] MCHC (RBC) [Mass/Vol] 34.1 g/dL 29.9 - 35.2 g/dL [facility] MCV (RBC) [Entitic vol] 80.2 fL 80.0 - 94.0 fL [facility] Platelet mean volume (Bld) [Entitic vol] 8.7 fL Low 9.5 - 13.5 fL [facility] TB PLT 339 [facility] TB RBC 5.71 [facility] TB WBC 8.7 [facility] HMHP URINALYSIS, WITH MICROS COPICon 03-20-2024 BACTERIA URINE NONE SEEN NONE SEEN #/HPF [facility] BILIRUBIN URINE Negative NEGATIVE [facility] BLOOD URINE Negative NEGATIVE [facility] CAST SEEN? NONE SEEN NONE SEEN #/LPF [facility] Clarity (U) CLEAR CLEAR [facility] Color (U) LT. YELLOW YELLOW [facility] CRYSTALS SEEN? None Seen None Seen #/HPF [facility] GLUCOSE URINE UA Negative NEGATIVE mg/dL [facility] Ketones Ql (U) Negative NEGATIVE mg/dL [facility] Leukocyte esterase Test strip Ql (U) Negative NEGATIVE [facility] MUCUS URINE NONE SEEN NONE SEEN [facility] NITRITE URINE Negative NEGATIVE [facility] pH (U) 7.5 [pH] 5.0 - 9.0 [facility] PROTEIN URINE Negative NEG/TRACE mg/dL [facility] SPECIFIC GRAVITY URINE 1.015 1.005 - 1.025 [facility] SQUAMOUS EPITHELIAL CELL URINE NONE SEEN NONE/RARE #/LPF [facility] TBH RBC 0-2 [facility] TB WBC NONE SEEN NONE SEEN #/HPF [facility] UROBILINOGEN URINE 0.2 EU/dL 0.2 - 1.0 EU/dL [facility] No Panel Informationon 03-20 Interpretation and review of laboratory results Abnormal [facility] T PROTEIN CREAT RA TIOon 03-20-2024 CREATININE URINE RANDOM 89.49 mg/dL 20.0 0 - 300.00 mg/dL [facility] Interpretation and review of laboratory results Abnormal [facility] Protein (U) [Mass/Vol] 13.6 mg/dL High NINF - 11.9 mg/dL [facility] PROTEIN CREATININE RATIO URINE 0.15 [facility] - Urinalysis[facility] Protein (U) [Mass/Vol] 20.3 mg/dL High <=11.9 [facility] Protein [Mass/time] in 24 ho ur Urineon 11-21-2023 Protein (24H U) [Mass/Time] 284.2 mg/24hr High <=149.1 [facility] Urine volume measurementon 11-21-2023 Specimen volume (U) 1400 mL/24hr [facility] Albumin [Mass/volume] in Ser um or Plasmaon 11-19-2023 Albumin [Mass/Vol] 3.7 g/dL 2.9-4.4 [facility] IgA [Mass/volume] in Serum o r Plasmaon 11-19-2023 IgA [Mass/Vol] 276 mg/dL 90-386 [facility] IgG [Mass/volume] in Serum o r Plasmaon 11-19-2023 IgG [Mass/Vol] 1297 mg/dL [phone] [facility] IgM [Mass/volume] in Serum o r Plasmaon 11-19-2023 IgM [Mass/Vol] 103 mg/dL 20-172 [facility] Immunofixation for Urineon 0 11-19-2023 Interpretation Immunofixation (U) [Interp] Comment . [facility] Comment on above: No monoclonality det ected.Performed at: [facility] [id number] Director: Sander Morel PhD, Phone: [phone] Immunoglobulin light chains. kappa.free [Mass/volume] in Serumon 11-19-2023 Immunoglobulin light chains.kappa.free (S) [Mass/Vol] 14.7 mg/L 3.3-19.4 [facility] Immunoglobulin light chains. kappa.free/Immunoglobulin light chains.lambda.free [Debby 11-19-2023 Immunoglobulin light chains.kappa.free/Immun oglobulin light chains.lambda.free (S) [Mass ratio] 0.86 0.26-1.65 [facility] Comment on above: Performed at: [facility] [employer] [address] [id number] Director: Sander Morel PhD, Phone: [phone] Immunoglobulin light chains. lambda.free [Mass/volume] in Serum or Plasmaon 11-19-2023 Immunoglobulin light chains.lambda.free [Mass/Vol] 17.1 mg/L 5.7-26.3 [facility] Laboratory - Chemistry and C hemistry - challengeon 11-19-2023 Bilirubin Ql (U) Negative NEGATIVE [facility] Glucose (U) [Mass/Vol] Negative NEGATIVE [facility] Ketones Ql (U) Negative NEGATIVE [facility] pH (U) 6.0 [pH] 5.0-9.0 [facility] Specific gravity (U) [Rel density] 1.025 1.005-1.025 [facility] Urobilinogen Qn (U) 0.2 {Felix'U}/dL 0.2-1.0 [facility] Laboratory - Specimen inform ationon 11-19-2023 Appearance (U) CLEAR CLEAR [facility] Color (U) YELLOW YELLOW [facility] Laboratory - Urinalysison Leukocyte esterase Test strip Ql (U) Negative NEGATIVE [facility] Mucus Ql (Urine sed) NONE SEEN NONE SEEN [facility] Nitrite Ql (U) Negative NEGATIVE [facility] Protein (U) [Mass/Vol] 24.7 mg/dL High <=11.9 [facility] Protein Ql (U) Negative NEG/TRACE [facility] Myeloperoxidase Ab [Units/vo lume] in Serum by Immunoassayon 11-19-2023 Myeloperoxidase Ab IA Qn (S) <0.2 units 0.0-0.9 [facility] No Panel Informationon 11-18 Atypical p-ANCA <1:20 titer Neg:<1:20 [facility] Comment on above: The atypical pANCA p attern has been observed in asignificant percentage of patients with ulcerative colitis,primary sclerosing cholangitis and autoimmune hepatitis.Performed at: - [facility] [address] [id number] Director: Ronaldo Luo MD, Phone: [phone] at: - [facility] [address] [id number] Director: Sander Morel PhD, Phone: [phone] Perinuclear ANCA (p-ANCA) Antibody <1:20 titer Neg:<1:20 [facility] Comment on above: The presence of posi tive fluorescence exhibiting P-ANCA orC-ANCA patterns alone is not specific for the diagnosis ofWegener's Granulomatosis (WG) or microscopic polyangiitis.Decisions about treatment should not be based solely onANCA IFA results. The International ANCA Group Consensusrecommends follow up testing of positive sera with both NM-3 and MPO-ANCA enzyme immunoassays. As many as 5% serumsamples are positive only by EIA. Ref. AM J Clin [id number];111:507-513. Protein Electrophoresis M-Jhonatan Not Observed g/dL Not Observed [facility] Protein Electrophoresis Note Comment . [facility] Comment on above: Protein electrophore sis scan will follow via computer,mail, or teaching supervisor delivery. Urine Bacteria NONE SEEN #/HPF NONE SEEN [facility] Urine Occult Blood TRACE-I NEGATIVE [facility] Urine Other Casts NONE SEEN #/LPF NONE SEEN [facility] Urine Other Crystals None Seen #/HPF None Seen [facility] Urine Random Creatinine 151.16 mg/dL 20.0 0-300.0 0 [facility] Urine RBC 0-2 #/HPF 0-2 [facility] Urine Squamous Epithelial Cells RARE #/LPF NONE/RARE [facility] Urine WBC 0-2 #/HPF Abnormal NONE SEEN [facility] Nuclear Ab (S) [Titer]on Anti-Nuclear Antibody Screen Negative . [facility] Comment on above: Negative <1:80 Borde rline 1:80 Positive >1:80ICAP nomenclature: AC-0For more information about Hep-2 cell patterns useCegal.Tradeshift, the official website for theInternational Consensus on Antinuclear Antibody (CRISTEL)Patterns (ICAP).Performed at: [facility] [employer] [id number] Director: Sander Morel PhD, Phone: [phone] Negative <1:80 Borde rline 1:80 Positive >1:80ICAP nomenclature: AC-0For more information about Hep-2 cell patterns useCegal.Tradeshift, the official website for theInternational Consensus on Antinuclear Antibody (CRISTEL)Patterns (ICAP).Performed at: [facility] [id number] Director: Sander Morel PhD, Phone: [phone] Protein [Mass/volume] in Ser um or Plasmaon 11-19-2023 Protein [Mass/Vol] 7.3 g/dL 6.0-8.5 [facility] Proteinase 3 Ab [Units/volum e] in Serum by Immunoassayon 11-19-2023 Proteinase 3 Ab IA Qn (S) <0.2 units 0.0-0.9 [facility] Serum classic neutrophil cyt oplasmic antibody titer by immunofluorescenceon 11-19-2023 Neutrophil cytoplasmic Ab.classic IF (S) [Titer] <1:20 titer Neg:<1:20 [facility] Serum globulin measurement ( mass/volume)on 11-19-2023 Globulin (S) [Mass/Vol] 3.6 g/dL 2.2-3.9 [facility] Serum or plasma albumin/glob ulin mass ratioon 11-19-2023 Albumin/Globulin [Mass ratio] 1.1 {ratio} 0.7-1.7 [facility] Serum or plasma alpha 1 glob ulin measurement by electrophoresis (mass/volume)on 11-19-2023 Alpha 1 globulin Elph [Mass/Vol] 0.3 g/dL 0.0-0.4 [facility] Serum or plasma alpha 2 glob ulin measurement by electrophoresis (mass/volume)on 11-19-2023 Alpha 2 globulin Elph [Mass/Vol] 0.9 g/dL 0.4-1.0 [facility] Serum or plasma beta globuli n measurement by electrophoresis (mass/volume)on 11-19-2023 Beta globulin Elph [Mass/Vol] 1.2 g/dL 0.7-1.3 [facility] Serum or plasma gamma globul in measurement by electrophoresis (mass/volume)on 11-19-2023 Gamma globulin Elph [Mass/Vol] 1.3 g/dL 0.4-1.8 [facility] Serum or plasma immunoelectr ophoresis interpretationon 11-19-2023 Interpretation IEP [Interp] Comment . [facility] Comment on above: No monoclonality det ected. Urine protein/creatinine rat ioon 11-19-2023 Protein/Creatinine (U) [Ratio] 0.16 [facility] Erythrocyte distribution wid th Auto (RBC) [Ratio]on 10-26-2023 Erythrocyte distribution width (RBC) [Ratio] 12.7 % 11.0-15.0 [facility] Estimated glomerular filtrat ion rate (GFR) non- Americanon 10-26-2023 GFR/1.73 sq M.predicted among non-blacks MDRD (S/P/Bld) [Vol rate/Area] mL/min/{1.73_m2} >=60 [facility] Hematocrit Auto (Bld) [Volum e fraction]on 10-26-2023 Hematocrit (Bld) [Volume fraction] 45.0 % 42.0-54.0 [facility] Hemoglobin [Mass/volume] in Bloodon 10-26-2023 Hemoglobin (Bld) [Mass/Vol] 15.4 g/dL 14.0-18.0 [facility] Laboratory - Chemistry and C hemistry - challengeon 10-26-2023 Albumin [Mass/Vol] 3.7 g/dL 3.4-5.0 [facility] Calcium [Mass/Vol] 8.9 mg/dL 8.5-10.1 [facility] Chloride [Moles/Vol] 99 mmol/L 98-107 [facility] CO2 [Moles/Vol] 31.1 mmol/L 21.0-32.0 [facility] Creatinine [Mass/Vol] 0.83 mg/dL 0.70-1.30 [facility] GFR/1.73 sq M.predicted MDRD (S/P/Bld) [Vol rate/Area] mL/min/{1.73_m2} >=60 [facility] Glucose [Mass/Vol] 105 mg/dL 74-106 [facility] Magnesium [Mass/Vol] 1.6 mg/dL Low 1.8-2.4 [facility] Potassium [Moles/Vol] 3.2 mmol/L Low 3.5-5.1 [facility] Sodium [Moles/Vol] 139 mmol/L 136-145 [facility] Urea nitrogen [Mass/Vol] 11.0 mg/dL 7.0-18.0 [facility] Urea nitrogen/Creatinine [Mass ratio] 13.3 mg/mg [facility] Bilirubin Ql (U) Negative NEGATIVE [facility] Glucose (U) [Mass/Vol] Negative NEGATIVE [facility] Ketones Ql (U) Negative NEGATIVE [facility] pH (U) 7.5 [pH] 5.0-9.0 [facility] Specific gravity (U) [Rel density] >=1.030 Abnormal 1.005-1.025 [facility] Urobilinogen Qn (U) 0.2 {Felix'U}/dL 0.2-1.0 [facility] Laboratory - Specimen inform ationon 10-26-2023 Appearance (U) CLEAR CLEAR [facility] Color (U) LT. YELLOW YELLOW [facility] Laboratory - Urinalysison Leukocyte esterase Test strip Ql (U) Negative NEGATIVE [facility] Mucus Ql (Urine sed) NONE SEEN NONE SEEN [facility] Nitrite Ql (U) Negative NEGATIVE [facility] Protein (U) [Mass/Vol] 807.8 mg/dL High <=11.9 [facility] Comment on above: UR TP RANDOM DILUTED AND REPEATED FOR VERIFICATION--- 10/26/23 1402 ---Ur TP Random previously reported as: 807.8 H mg/dL Protein Ql (U) 100 mg/dL Abnormal NEG/TRACE [facility] Leukocytes [#/volume] correc augusto for nucleated erythrocytes in Blood by Automated counon 10-26-2023 WBC corrected for nucl RBC Auto (Bld) [#/Vol] 10.5 10 3/uL 4.0-11.0 [facility] MCH Auto (RBC) [Entitic mass ]on 10-26-2023 MCH (RBC) [Entitic mass] 27.2 pg 25.9-34.0 [facility] MCHC Auto (RBC) [Mass/Vol]on 10-26-2023 MCHC (RBC) [Mass/Vol] 34.2 g/dL 29.9-35.2 [facility] MCV Auto (RBC) [Entitic vol] on 10-26-2023 MCV (RBC) [Entitic vol] 79.5 fL Low 80.0-94.0 [facility] No Panel Informationon 10-25 Phosphorus Level 2.8 mg/dL 2.6-4.7 [facility] Urine Bacteria TRACE #/HPF Abnormal NONE SEEN [facility] Urine Culture Reflexed NO [facility] Urine Occult Blood Negative NEGATIVE [facility] Urine Other Casts NONE SEEN #/LPF NONE SEEN [facility] Urine Other Crystals None Seen #/HPF None Seen [facility] Urine Random Creatinine 109.34 mg/dL 20.0 0-300.0 0 [facility] Urine RBC 2-5 #/HPF Abnormal 0-2 [facility] Urine Sperm SEEN [facility] Urine Squamous Epithelial Cells RARE #/LPF NONE/RARE [facility] Urine WBC 0-2 #/HPF Abnormal NONE SEEN [facility] Platelet mean volume Auto (B ld) [Entitic vol]on 10-26-2023 Platelet mean volume (Bld) [Entitic vol] 8.9 fL Low 9.5-13.5 [facility] Platelets Auto (Bld) [#/Vol] on 10-26-2023 Platelets (Bld) [#/Vol] 376 10 3/uL 150-450 [facility] RBC Auto (Bld) [#/Vol]on RBC (Bld) [#/Vol] 5.66 10 6/uL 4.70-6.10 [facility] Serum or plasma anion gap de terminationon 10-26-2023 Anion gap [Moles/Vol] 12.1 mmol/L [facility] Urine protein/creatinine rat ioon 10-26-2023 Protein/Creatinine (U) [Ratio] 7.39 [facility] Erythrocyte distribution wid th Auto (RBC) [Ratio]on 10-06-2023 Erythrocyte distribution width (RBC) [Ratio] 13.1 % 11.0-15.0 [facility] Estimated glomerular filtrat ion rate (GFR) non- Americanon 10-06-2023 GFR/1.73 sq M.predicted among non-blacks MDRD (S/P/Bld) [Vol rate/Area] mL/min/{1.73_m2} >=60 [facility] Hematocrit Auto (Bld) [Volum e fraction]on 10-06-2023 Hematocrit (Bld) [Volume fraction] 46.8 % 42.0-54.0 [facility] Hemoglobin [Mass/volume] in Bloodon 10-06-2023 Hemoglobin (Bld) [Mass/Vol] 15.7 g/dL 14.0-18.0 [facility] Laboratory - Chemistry and C hemistry - challengeon 10-06-2023 Albumin [Mass/Vol] 3.7 g/dL 3.4-5.0 [facility] Calcium [Mass/Vol] 8.9 mg/dL 8.5-10.1 [facility] Chloride [Moles/Vol] 102 mmol/L 98-107 [facility] CO2 [Moles/Vol] 31.8 mmol/L 21.0-32.0 [facility] Creatinine [Mass/Vol] 0.81 mg/dL 0.70-1.30 [facility] GFR/1.73 sq M.predicted MDRD (S/P/Bld) [Vol rate/Area] mL/min/{1.73_m2} >=60 [facility] Glucose [Mass/Vol] 95 mg/dL 74-106 [facility] Magnesium [Mass/Vol] 1.5 mg/dL Low 1.8-2.4 [facility] Potassium [Moles/Vol] 4.3 mmol/L 3.5-5.1 [facility] Sodium [Moles/Vol] 140 mmol/L 136-145 [facility] Urea nitrogen [Mass/Vol] 9.0 mg/dL 7.0-18.0 [facility] Urea nitrogen/Creatinine [Mass ratio] 11.1 mg/mg [facility] Leukocytes [#/volume] correc augusto for nucleated erythrocytes in Blood by Automated counon 10-06-2023 WBC corrected for nucl RBC Auto (Bld) [#/Vol] 6.8 10 3/uL 4.0-11.0 [facility] MCH Auto (RBC) [Entitic mass ]on 10-06-2023 MCH (RBC) [Entitic mass] 27.4 pg 25.9-34.0 [facility] MCHC Auto (RBC) [Mass/Vol]on 10-06-2023 MCHC (RBC) [Mass/Vol] 33.5 g/dL 29.9-35.2 [facility] MCV Auto (RBC) [Entitic vol] on 10-06-2023 MCV (RBC) [Entitic vol] 81.8 fL 80.0-94.0 [facility] No Panel Informationon 10-05 Phosphorus Level 2.3 mg/dL Low 2.6-4.7 [facility] Platelet mean volume Auto (B ld) [Entitic vol]on 10-06-2023 Platelet mean volume (Bld) [Entitic vol] 9.0 fL Low 9.5-13.5 [facility] Platelets Auto (Bld) [#/Vol] on 10-06-2023 Platelets (Bld) [#/Vol] 349 10 3/uL 150-450 [facility] RBC Auto (Bld) [#/Vol]on RBC (Bld) [#/Vol] 5.72 10 6/uL 4.70-6.10 [facility] Serum or plasma anion gap de terminationon 10-06-2023 Anion gap [Moles/Vol] 10.5 mmol/L [facility] Félix 09-01-2023 L Specimen: [id number] Received: 09/02/23 Status: MICHELLE De Guzman Num: [id number] Spec Type: Surgical Subm Dr: Carlos Johnson MD Tissues: A Duodenum - Biopsy (DUODENUM BX) B GASTRIC FOR HP (GASTRIC HP) C Esophagus Biopsy (ESOPHAGEAL BX) Procedures: HE/6, Gross/Micro L4/3, H PYLORI, IHC First AB Age/ Patient Sex Location Account Attending Physician [place] 27/M [id number] Carlos Johnson MD SPEC NUM: [id number] RECD: 09/02/23 STATUS: MICHELLE DE GUZMAN NUM: [id number] ALLEN: 09/01/23 DR: Carlos Johnson MD ENTERED: 09/02/23 [facility] DR: SPEC TYPE: Surgical DEPT: S [...] cm, entirely submitted in A1. -------- Specimen: [id number] Received: 09/02/23 Status: MICHELLE De Guzman Num: [id number] Spec Type: Surgical Subm Dr: Carlos Johnson MD Tissues: A Duodenum - Biopsy (DUODENUM BX) B GASTRIC FOR HP (GASTRIC HP) C Esophagus Biopsy (ESOPHAGEAL BX) Procedures: HE/6, Gross/Micro L4/3, H PYLORI, IHC First AB -------- Patient: [place] Jennifer [id number] (Continued) -------- Specimen: [id number] Received: 09/02/23 (Continued) Gross Description (Continued) Signed (signature on file) Jaylen Caputo MD 09/06/23 1642 -------- Specimen: Received: 09/02/23 Status: MICHELLE De Guzman Num: [id number] Spec Type: Surgical Subm Dr: Carlos Johnson MD Tissues: A Duodenum - Biopsy (DUODENUM BX) B GASTRIC FOR HP (GASTRIC HP) C Esophagus Biopsy (ESOPHAGEAL BX) Procedures: HE/6, Gross/Micro L4/3, H PYLORI, IHC First AB -------- Patient: [place] Horn [id number] (Continued) -------- Specimen: [id number] Received: 09/02/23 (Continued) Gross Description (Continued) B. [...] H. pylori, rule out EOE CPT Codes 48363q7, 77607 -------- -------- Specimen: [id number] Received: 09/02/23 Status: MICHELLE De Guzman Num: [id number] Spec Type: Surgical Subm Dr: Carlos Johnson MD Tissues: A Duodenum - Biopsy (DUODENUM BX) B GASTRIC FOR HP (GASTRIC HP) C Esophagus Biopsy (ESOPHAGEAL BX) Procedures: HE/6, Gross/Micro L4/3, H PYLORI, IHC First AB -------- Patient: [place] Horn [id number] (Continued) -------- Signed (signature on file) Jaylen Caputo MD 09/06/232 Normal [facility] Magnesium [Mass/volume] in S joon or PlasmaOrdered By: Carlos Johnson on 09-01-2023 Magnesium [Mass/Vol] 1.1 mg/dL Low 1.9-2.7 [facility] Comment on above: Result Comment: PERF ORMED BY: [facility] [address] [place] [address] PATHOLOGIST [employer] RO[employer] WORKER LIEN TAN M.D. Performed By: #### M Cheryl, K #### [address] Potassium [Moles/volume] in Serum or PlasmaOrdered By: Imad Asaad on 09-01-2023 Potassium [Moles/Vol] 3.6 mmol/L Normal 3.5-5.1 [facility] Comment on above: Hemolysis is present at a level that could interfere with the result. Result Comment: Hemo lysis is present at a level that could interfere with the result. Performed By: #### M Cheryl, K #### [address] Arterial blood standard base excess determination by calculationOrdered By: Imad Asaad on 08-18-2023 Base excess standard Calc (BldA) [Moles/Vol] 9 mmol/L -2-3 [facility] Basophil percentageOrdered B y: Imad Asaad on 08-18-2023 Basophil percentage 46.3 mm[Hg] 35-51 [facility] Basophil percentage 36 mm[Hg] 80-105 [facility] Blood carbon dioxide, total measurement by calculation (moles/volume)Ordered By: Imad Asaad on 08-18-2023 CO2 Calc (Bld) [Moles/Vol] 34 mmol/L 23-29 [facility] Blood hemoglobin measurement by calculation (mass/volume)Ordered By: Imad Asaad on 08-18-2023 Hemoglobin (Bld) [Mass/Vol] 16.7 g/dL Normal 12.0-17.0 [facility] Comment on above: Performed By: #### I SABG #### [facility] [address] [place] [address] CT biopsyOrdered By: Imad As aad on 08-18-2023 Hematocrit (Bld) [Volume fraction] 49.0 % Normal 38.0-51.0 [facility] Comment on above: Performed By: #### I SABG #### [facility] [address] [place] [address] Capillary blood glucose ryan urement by glucometer (mass/volume)Ordered By: Imad Asaad on 08-18-2023 Glucose [Mass/Vol] 95 mg/dL Normal 70-105 [facility] Comment on above: Result Comment: PERF ORMED BY: [place] [address] PATHOLOGIST PR[employer] ROOM WORKER LIEN TAN M.D. Performed By: #### I SABG #### [address] ISTAT ABGon 08-18-2023 CO2 [Moles/Vol] 34 mmol/L High 23-29 [facility] Comment on above: Performed By: #### I SABG #### [address] ISTAT Base Excess 9 mmol/L High -2 TO 3 [facility] Comment on above: Performed By: #### I SABG #### [address] ISTAT Ionized Calcium 1.14 mol/L Normal 1.12-1.32 [facility] Comment on above: Performed By: #### I SABG #### [address] ISTAT PCO2 46.3 mm[Hg] Normal 35-51 [facility] Comment on above: Performed By: #### I SABG #### [address] ISTAT Ph 7.460 High 7.31-7.45 [facility] Comment on above: Performed By: #### I SABG #### [address] ISTAT PO2 36 mm[Hg] Low 80-105 [facility] Comment on above: Performed By: #### I SABG #### [address] Whole blood bicarbonate ryan urementOrdered By: Imkaren Johnson on 08-18-2023 HCO3 (Bld) [Moles/Vol] 32.9 mmol/L High 22.0-28.0 [facility] Comment on above: Performed By: #### I SABG #### [address] Whole blood ionized calcium measurement (moles/volume)Ordered By: Imad Asaad on 08-18-2023 Calcium.ionized (Bld) [Moles/Vol] 1140 mmol/L 1.12-1.32 [facility] Whole blood oxygen saturatio n measurementOrdered By: Imad Asaad on 08-18-2023 Oxygen saturation in Blood 72 % Low 95-98 [facility] Comment on above: Reference ranges ref lect baseline specimens only Result Comment: Refe rence ranges reflect baseline specimens only Performed By: #### I SABG #### [address] Whole blood pHOrdered By: Im ad Asaad on 08-18-2023 pH (Bld) 7.460 Units 7.31-7.45 [facility] Whole blood potassium measur ementOrdered By: Imad Asaad on 08-18-2023 Potassium [Moles/Vol] 2.5 mmol/L Off scale low 3.5-4.9 [facility] Comment on above: Performed By: #### I SABG #### [address] Whole blood sodium measureme ntOrdered By: Imad Asaad on 08-18-2023 Sodium [Moles/Vol] 139 mmol/L Normal 138-146 [facility] Comment on above: Performed By: #### I SABG #### [address] Alanine aminotransferase [En zymatic activity/volume] in Serum or PlasmaOrdered By: Imad Asaad on 07-23-2023 ALT [Catalytic activity/Vol] 30 U/L Normal 7-52 [facility] Comment on above: Performed By: #### C MP, CBC, LIPASE #### [place] [address] [place] Albumin [Mass/volume] in Ser um or Plasma by Bromocresol green (BCG) dye binding methoOrdered By: Imad Asaad on 07-23-2023 Albumin BCG dye [Mass/Vol] 4.4 g/dL 3.5-5.7 [facility] Alkaline phosphatase [Enzyma tic activity/volume] in Serum or PlasmaOrdered By: Imad Asaad on 07-23-2023 ALP [Catalytic activity/Vol] 87 U/L Normal 34-104 [facility] Comment on above: Performed By: #### C MP, CBC, LIPASE #### [address] Aspartate aminotransferase [ Enzymatic activity/volume] in Serum or PlasmaOrdered By: Imad Asaad on 07-23-2023 AST [Catalytic activity/Vol] 25 U/L Normal 13-39 [facility] Comment on above: Performed By: #### C MP, CBC, LIPASE #### [address] Automated basophil %Ordered By: Imad Asaad on 07-23-2023 Basophils/100 WBC (Bld) 0.7 % Normal . [facility] Comment on above: Performed By: #### C MP, CBC, LIPASE #### [address] Automated basophil countOrde red By: Imad Asaad on 07-23-2023 Basophils (Bld) [#/Vol] 0.1 10*3/uL Normal 0.0-0.2 [facility] Comment on above: Result Comment: PERF ORMED BY: [place] [address] PATHOLOGIST PR[employer] RO[employer] WORKER LIEN TAN M.D. Performed By: #### C MP, CBC, LIPASE #### [address] Automated blood monocyte cou ntOrdered By: Imad Asaad on 07-23-2023 Monocytes (Bld) [#/Vol] 0.6 10*3/uL Normal 0.0-0.8 [facility] Comment on above: Performed By: #### C MP, CBC, LIPASE #### [address] Automated eosinophil %Ordere d By: Imad Asaad on 07-23-2023 Eosinophils/100 WBC (Bld) 4.2 % Normal . [facility] Comment on above: Performed By: #### C MP, CBC, LIPASE #### [facility] [address] Automated eosinophil countOr dered By: Imad Asaad on 07-23-2023 Eosinophils (Bld) [#/Vol] 0.4 10*3/uL Normal 0.0-0.45 [facility] Comment on above: Performed By: #### C MP, CBC, LIPASE #### [facility] [address] Automated monocyte %Ordered By: Imad Asaad on 07-23-2023 Monocytes/100 WBC (Bld) 6.9 % Normal . [facility] Comment on above: Performed By: #### C MP, CBC, LIPASE #### [address] Automated neutrophil %Ordere d By: Imad Asaad on 07-23-2023 Neutrophils/100 WBC (Bld) 63.9 % Normal . [facility] Comment on above: Performed By: #### C MP, CBC, LIPASE #### [address] Bilirubin.total [Mass/volume ] in Serum or PlasmaOrdered By: Imad Asaad on 07-23-2023 Bilirubin [Mass/Vol] 0.7 mg/dL Normal 0.3-1.0 [facility] Comment on above: Performed By: #### C MP, CBC, LIPASE #### [address] Calcium [Mass/volume] in Ser um or PlasmaOrdered By: Imad Asaad on 07-23-2023 Calcium [Mass/Vol] 9.2 mg/dL Normal 8.6-10.3 [facility] Comment on above: Performed By: #### C MP, CBC, LIPASE #### [address] Carbon dioxide, total [Moles /volume] in Serum or PlasmaOrdered By: Imad Asaad on 07-23-2023 CO2 [Moles/Vol] 34.0 mmol/L High 21.0-31.0 [facility] Comment on above: Performed By: #### C MP, CBC, LIPASE #### [address] Chloride [Moles/volume] in S joon or PlasmaOrdered By: Imad Asaad on 07-23-2023 Chloride [Moles/Vol] 98 mmol/L Normal 98-107 [facility] Comment on above: Performed By: #### C MP, CBC, LIPASE #### [address] Complete Blood Count Auto Di ffon 07-23-2023 Mean Corpuscular HGB Conc 34.6 g/dL Normal 32.5-35.6 [facility] Comment on above: Performed By: #### C MP, CBC, LIPASE #### [address] NRBC% 0.0 /100{WBC} Normal 0-0.5 [facility] Comment on above: Performed By: #### C MP, CBC, LIPASE #### [address] Comprehensive Metabolic Pane félix 07-23-2023 Albumin [Mass/Vol] 4.4 g/dL Normal 3.5-5.7 [facility] Comment on above: Performed By: #### C MP, CBC, LIPASE #### [place] [address] [place] GFR/1.73 sq M.predicted MDRD (S/P/Bld) [Vol rate/Area] mL/min/{1.73_m2} Normal [facility] Comment on above: Performed By: #### C MP, CBC, LIPASE #### [address] Creatinine [Mass/volume] in Serum or PlasmaOrdered By: Imad Asaad on 07-23-2023 Creatinine [Mass/Vol] 0.73 mg/dL Normal 0.70-1.30 [facility] Comment on above: Performed By: #### C MP, CBC, LIPASE #### [facility] [address] Erythrocyte distribution wid th [Ratio] by Automated countOrdered By: Imad Asaad on 07-23-2023 Erythrocyte distribution width (RBC) [Ratio] 14.0 % Normal 12.0-14.8 [facility] Comment on above: Performed By: #### C MP, CBC, LIPASE #### [facility] [address] Erythrocytes [#/volume] in B lood by Automated countOrdered By: Imad Asaad on 07-23-2023 RBC (Bld) [#/Vol] 5.46 10*6/uL Normal 3.90-5.60 [facility] Comment on above: Performed By: #### C MP, CBC, LIPASE #### [address] Glucose [Mass/volume] in Ser um or PlasmaOrdered By: Imad Asaad on 07-23-2023 Glucose [Mass/Vol] 92 mg/dL Normal 70-100 [facility] Comment on above: ADA recommended refe rence rangeRandom Glucose Reference Range is dependent on time and content of last meal. Glucose of more than 200 mg/dL in a nonstressed, ambulatory subject supports the diagnosis of Diabetes Mellitus. Result Comment: [place] om Glucose Reference Range is dependent on time and content of last meal. Glucose of more than 200 mg/dL in a nonstressed, ambulatory subject supports the diagnosis of Diabetes Mellitus. ADA recommended reference range Performed By: #### C MP, CBC, LIPASE #### [facility] [address] Hematocrit [Volume Fraction] of Blood by Automated countOrdered By: Imad Asaad on 07-23-2023 Hematocrit (Bld) [Volume fraction] 43.7 % Normal 38.8-50.0 [facility] Comment on above: Performed By: #### C MP, CBC, LIPASE #### [facility] [address] Hemoglobin [Mass/volume] in BloodOrdered By: Imad Asaad on 07-23-2023 Hemoglobin (Bld) [Mass/Vol] 15.1 g/dL Normal 13.0-17.0 [facility] Comment on above: Performed By: #### C MP, CBC, LIPASE #### [facility] [address] Leukocytes [#/volume] correc augusto for nucleated erythrocytes in Blood by Automated counOrdered By: Imad Asaad on 07-23-2023 WBC corrected for nucl RBC Auto (Bld) [#/Vol] 9.0 10*3/uL 4.1-10.5 [facility] Leukocytes [#/volume] in Blo od by Automated countOrdered By: Imad Asaad on 07-23-2023 WBC (Bld) [#/Vol] 9.0 10*3/uL Normal 4.1-10.5 [facility] Comment on above: Performed By: #### C MP, CBC, LIPASE #### [address] Lipase [Enzymatic activity/v olume] in Serum or PlasmaOrdered By: Imad Asaad on 07-23-2023 Lipase [Catalytic activity/Vol] 39.0 U/L Normal 11.0-82.0 [facility] Comment on above: Result Comment: PERF ORMED BY: [place] [address] PATHOLOGIST PR[employer] ROOM WORKER LIEN TAN M.D. Performed By: #### C MP, CBC, LIPASE #### [place] [address] [place] Lymphocytes [#/volume] in Bl ood by Automated countOrdered By: Imad Asaad on 07-23-2023 Lymphocytes (Bld) [#/Vol] 2.2 10*3/uL Normal 1.00-4.8 [facility] Comment on above: Performed By: #### C MP, CBC, LIPASE #### [facility] [address] [place] [address] Lymphocytes/100 leukocytes i n Blood by Automated countOrdered By: Imad Asaad on 07-23-2023 Lymphocytes/100 WBC (Bld) 24.3 % Normal . [facility] Comment on above: Performed By: #### C MP, CBC, LIPASE #### [facility] [address] [place] [address] MCH [Entitic mass] by Automa augusto countOrdered By: Imad Asaad on 07-23-2023 MCH (RBC) [Entitic mass] 27.7 pg Normal 27.5-35.2 [facility] Comment on above: Performed By: #### C MP, CBC, LIPASE #### [facility] [address] [place] [address] MCHC Auto (RBC) [Mass/Vol]Or dered By: Imad Asaad on 07-23-2023 MCHC (RBC) [Mass/Vol] 34.6 g/dL 32.5-35.6 [facility] MCV [Entitic volume] by Auto mated countOrdered By: Imad Asaad on 07-23-2023 MCV (RBC) [Entitic vol] 80.1 fL Low 83.5-101 F [facility] Comment on above: Performed By: #### C MP, CBC, LIPASE #### [facility] [address] [place] [address] Neutrophils [#/volume] in Bl ood by Automated countOrdered By: Imad Asaad on 07-23-2023 Neutrophils (Bld) [#/Vol] 5.8 10*3/uL Normal 1.8-7.7 [facility] Comment on above: Performed By: #### C MP, CBC, LIPASE #### [facility] [address] [place] [address] No Panel InformationOrdered By: Imad Asaad on 07-23-2023 Estimated GFR (CKD-EPI) > 60.0 mL/Min [facility] Creatinine Clearance (Chem N/A [facility] Nucleated erythrocytes [Pres ence] in Blood by Automated countOrdered By: Imad Asaad on 07-23-2023 Nucleated RBC Auto Ql (Bld) 0.0 /100{WBC} 0-0.5 [facility] Platelet mean volume [Entiti c volume] in Blood by Automated countOrdered By: Imad Asaad on 07-23-2023 Platelet mean volume (Bld) [Entitic vol] 7.2 fL Normal 6.6-10.1 [facility] Comment on above: Performed By: #### C MP, CBC, LIPASE #### [address] Platelets [#/volume] in Bloo d by Automated countOrdered By: Imad Asaad on 07-23-2023 Platelets (Bld) [#/Vol] 353 10*3/uL Normal 150-450 [facility] Comment on above: Performed By: #### C MP, CBC, LIPASE #### [address] Potassium [Moles/volume] in Serum or PlasmaOrdered By: Imad Asaad on 07-23-2023 Potassium [Moles/Vol] 2.8 mmol/L Off scale low 3.5-5.1 [facility] Comment on above: Critical Result Call ed to and read back by: HALIMA CHAVEZ at: 07/23/2023 11:41:15 by:[id number] Result Comment: Crit ical Result Called to and read back by: HALIMA CHAVEZ at: 07/23/2023 11:41:15 by:[id number] Performed By: #### C MP, CBC, LIPASE #### [address] Protein [Mass/volume] in Ser um or PlasmaOrdered By: Imad Asaad on 07-23-2023 Protein [Mass/Vol] 7.3 g/dL Normal 6.4-8.9 [facility] Comment on above: Performed By: #### C MP, CBC, LIPASE #### [address] Serum globulin measurement b y calculation (mass/volume)Ordered By: Imad Asaad on 07-23-2023 Globulin (S) [Mass/Vol] 2.9 g/dL Normal [facility] Comment on above: Performed By: #### C MP, CBC, LIPASE #### [facility] [address] [place] [address] Serum or plasma albumin/glob ulin mass ratioOrdered By: Imad Asaad on 07-23-2023 Albumin/Globulin [Mass ratio] 1.5 {ratio} Normal [facility] Comment on above: Performed By: #### C MP, CBC, LIPASE #### [address] Serum or plasma anion gap de terminationOrdered By: Imad Asaad on 07-23-2023 Anion gap [Moles/Vol] 11.8 mmol/L Normal 6.0-15.0 [facility] Comment on above: Performed By: #### C MP, CBC, LIPASE #### [address] Sodium [Moles/volume] in Ser um or PlasmaOrdered By: Imad Asaad on 07-23-2023 Sodium [Moles/Vol] 141 mmol/L Normal 136-145 [facility] Comment on above: Performed By: #### C MP, CBC, LIPASE #### [address] US abdomen completeon 2023 US abdomen complete [facility] [place] [address] [place] [address] Ultrasound Report Signed Patient: Wood Horn MR#: [id number] : 1995 Acct:[id number] Age/Sex: 27 / M ADM Date: 07/23/23 Loc: Room: Type: [facility] Attending Dr: Carlos Johnson MD Ordering Provider: [...] Estuardo Saravia M.D.07/23/2023 10:53 AM Dictation Location: [place] [address] Tech: Marlee Mirley Transcribed By: ORLANDO 07/23/23 1053 Dictated By: Estuardo Saravia II, MD 07/23/23 1047 Signed By: 07/23/23 1053 Normal [facility] Urea nitrogen [Mass/volume] in Serum or PlasmaOrdered By: Carlos Johnson on 07-23-2023 Urea nitrogen [Mass/Vol] 13 mg/dL Normal 7-25 [facility] Comment on above: Performed By: #### C MP, CBC, LIPASE #### [address] Magnesiumon 11-25-2022 Magnesium [Mass/Vol] 1.1 mg/dL [facility] [employer] Other Renal Function Panelon 11-25 Albumin [Mass/Vol] 3.9 g/dL [facility] [employer] Other Calcium [Mass/Vol] 8.8 mg/dL [facility] [employer] Other Chloride [Moles/Vol] 96 mmol/L [facility] [employer] Other CO2 [Moles/Vol] 32.9 mmol/L [facility] [employer] Other Creatinine [Mass/Vol] 0.83 mg/dL [facility] [employer] Other Glucose [Mass/Vol] 138 mg/dL [facility] [employer] Other Phosphate [Mass/Vol] 4.0 mg/dL [facility] [employer] Other Potassium [Moles/Vol] 2.4 mmol/L [facility] [employer] Other Sodium [Moles/Vol] 139 mmol/L [facility] [employer] Other Urea nitrogen [Mass/Vol] 13.0 mg/dL [facility] [employer] Other Renal Function Panel [facility] [employer] Other Renal Function Panel >60 [facility] [employer] Other GLYCOHEMOGLOBIN A1Con 2022 ADA RECOMMENDATION SEE BELOW Normal [facility] Comment on above: Result Comment: ADA RECOMMENDED LIMIT 4.0 - 6.0 ADA THERAPEUTIC TARGET < 7.0 ACTION SUGGESTED > 7.0 Performed By: #### A 1C #### [facility] [address] [place] [address] Dr. Jossue Centeno Glucose [Mass/Vol] 108 mg/dL Normal [facility] Comment on above: Performed By: #### A 1C #### [facility] [address] [place] [address] Dr. Jossue Centeno HbA1c (Bld) [Mass fraction] 5.4 % Normal 4.5-6.2 [facility] Comment on above: Performed By: #### A 1C #### [facility] [address] [place] [address] Dr. Jossue Centeno CBC AUTO DIFFon 01-27-2022 BASO # 0.1 103/ul Normal 0.0-0.1 [facility] Comment on above: Performed By: #### C BC #### [facility] [address] [place] [address] Dr. Jossue Centeno Basophils/100 WBC (Bld) 0.8 % Normal 0.2-2.0 [facility] Comment on above: Performed By: #### C BC #### [facility] [address] [place] [address] Dr. Jossue Centeno EO # 0.6 103/ul Normal 0.0-0.7 [facility] Comment on above: Performed By: #### C BC #### [facility] [address] [place] [address] Dr. Jossue Centeno Eosinophils/100 WBC (Bld) 5.8 % Normal 0.9-7.0 [facility] Comment on above: Performed By: #### C BC #### [facility] [address] [place] [address] Dr. Jossue Centeno Erythrocyte distribution width (RBC) [Ratio] 12.4 % Normal 11.0-15.0 [facility] Comment on above: Performed By: #### C BC #### [facility] [address] [place] [address] Dr. Jossue Centeno Hematocrit (Bld) [Volume fraction] 47.4 % Normal 42.0-54.0 [facility] Comment on above: Performed By: #### C BC #### [facility] [address] [place] [address] Dr. Jossue Centeno Hemoglobin (Bld) [Mass/Vol] 16.7 g/dL Normal 14.0-18.0 [facility] Comment on above: Performed By: #### C BC #### [facility] [address] [place] [address] Dr. Jossue Centeno IG # 0.02 10e3/ul Normal 0.00-0.03 [facility] Comment on above: Performed By: #### C BC #### [facility] [address] [place] [address] Dr. Jossue Centeno IG % 0.2 % Normal 0.0-0.5 [facility] Comment on above: Performed By: #### C BC #### [facility] [address] [place] [address] Dr. Jossue Centeno LYMPH # 2.2 103/ul Normal 1.2-3.8 [facility] Comment on above: Performed By: #### C BC #### [facility] [address] [place] [address] Dr. Jossue Centeno Lymphocytes/100 WBC (Bld) 23.1 % Normal 20.5-60.0 [facility] Comment on above: Performed By: #### C BC #### [facility] [address] [place] [address] Dr. Jossue Centeno MANUAL DIFF REQ NO Normal [facility] Comment on above: Performed By: #### C BC #### [facility] [address] [place] [address] Dr. Jossue Centeno MCH (RBC) [Entitic mass] 28.2 pg Normal 25.9-34.0 [facility] Comment on above: Performed By: #### C BC #### [facility] [address] [place] [address] Dr. Jossue Centeno MCHC (RBC) [Mass/Vol] 35.2 g/dL Normal 29.9-35.2 [facility] Comment on above: Performed By: #### C BC #### [facility] [address] [place] [address] Dr. Jossue Centeno MCV (RBC) [Entitic vol] 79.9 fL Critically low 80.0-94. 0 [facility] Comment on above: Performed By: #### C BC #### [facility] [address] [place] [address] Dr. Jossue Centeno MONO # 0.7 103/ul Normal 0.3-0.8 [facility] Comment on above: Performed By: #### C BC #### [facility] [address] [place] [address] Dr. Jossue Centeno Monocytes/100 WBC (Bld) 7.6 % Normal 1.7-12.0 [facility] Comment on above: Performed By: #### C BC #### [facility] [address] [place] [address] Dr. Jossue Centeno NEUT # 5.9 103/ul Normal 1.4-6.5 [facility] Comment on above: Performed By: #### C BC #### [facility] [address] [place] [address] Dr. Jossue Centeno Neutrophils/100 WBC (Bld) 62.5 % Normal 43.0-75.0 [facility] Comment on above: Performed By: #### C BC #### [facility] [address] [place] [address] Dr. Jossue Centeno Platelet mean volume (Bld) [Entitic vol] 8.5 fL Critically low 9.5-13.5 [facility] Comment on above: Performed By: #### C BC #### [facility] [address] [place] [address] Dr. Jossue Centeno PLT 335 103/ul Normal 150-450 [facility] Comment on above: Performed By: #### C BC #### [facility] [address] [place] [address] Dr. Jossue Centeno RBC 5.93 106/ul Normal 4.70-6.10 [facility] Comment on above: Performed By: #### C BC #### [facility] [address] [place] [address] Dr. Jossue Centeno WBC 9.5 103/ul Normal 4.0-11.0 [facility] Comment on above: Performed By: #### C BC #### [facility] [address] [place] [address] Dr. Jossue Centeno MAGNESIUMon 01-27-2022 Magnesium [Mass/Vol] 1.5 mg/dL Critically low 1.8-2.4 [facility] Comment on above: Performed By: #### K #### [facility] [address] [place] [address] Dr. Jossue Centeno PROF 14(COMP METB)on 022 Albumin [Mass/Vol] 4.1 g/dL Normal 3.4-5.0 [facility] Comment on above: Performed By: #### M G, CMP #### [facility] [address] [place] [address] Dr. Jossue Centeno Albumin/Globulin [Mass ratio] 1.0 {ratio} Normal [facility] Comment on above: Performed By: #### M G, CMP #### [facility] [address] [place] [address] Dr. Jossue Centeno ALP [Catalytic activity/Vol] 107 U/L Normal 46-116 [facility] Comment on above: Performed By: #### M G, CMP #### [facility] [address] [place] [address] Dr. Jossue Centeno ALT [Catalytic activity/Vol] 50 U/L Normal 16-63 [facility] Comment on above: Performed By: #### M G, CMP #### [facility] [address] [place] [address] Dr. Jossue Centeno Anion gap [Moles/Vol] 12.1 mmol/L Normal [facility] Comment on above: Performed By: #### M G, CMP #### [facility] [address] [place] [address] Dr. Jossue Centeno AST [Catalytic activity/Vol] 25 U/L Normal 15-37 [facility] Comment on above: Performed By: #### M G, CMP #### [facility] [address] [place] [address] Dr. Jossue Centeno Bilirubin [Mass/Vol] 0.6 mg/dL Normal 0.2-1.0 [facility] Comment on above: Performed By: #### M G, CMP #### [facility] [address] [place] [address] Dr. Jossue Centeno Calcium [Mass/Vol] 9.3 mg/dL Normal 8.5-10.1 [facility] Comment on above: Performed By: #### M G, CMP #### [facility] [address] [place] [address] Dr. Jossue Centeno Chloride [Moles/Vol] 97 mmol/L Critically low 98-107 [facility] Comment on above: Performed By: #### M G, CMP #### [facility] [address] [place] [address] Dr. Jossue Centeno CO2 [Moles/Vol] 32.1 mmol/L Critically high 21.0-32.0 [facility] Comment on above: Performed By: #### M G, CMP #### [facility] [address] [place] [address] Dr. Jossue Centeno Creatinine [Mass/Vol] 0.76 mg/dL Normal 0.70-1.30 [facility] Comment on above: Performed By: #### Isabell Luna, CMP #### [facility] [address] [place] [address] Dr. Jossue Centeno EGFR-AF GREEK >60 Normal >=60 [facility] Comment on above: Performed By: #### M G, CMP #### [facility] [address] [place] [address] Dr. Jossue Centeno EGFR-NON AF GREEK >60 Normal >=60 [facility] Comment on above: Performed By: #### Isabell Luna, CMP #### [facility] [address] [place] [address] Dr. Jossue Centeno Globulin (S) [Mass/Vol] 4.1 g/dL Normal [facility] Comment on above: Performed By: #### M G, CMP #### [facility] [address] [place] [address] Dr. Jossue Centeno Glucose [Mass/Vol] 92 mg/dL Normal 74-106 [facility] Comment on above: Performed By: #### M G, CMP #### [facility] [address] [place] [address] Dr. Jossue Centeno Potassium [Moles/Vol] 3.2 mmol/L Critically low 3.5-5.1 [facility] Comment on above: Performed By: #### M G, CMP #### [facility] [address] [place] [address] Dr. Jossue Centeno Protein [Mass/Vol] 8.2 g/dL Normal 6.4-8.2 [facility] Comment on above: Performed By: #### M G, CMP #### [facility] [address] [place] [address] Dr. Jossue Centeno Sodium [Moles/Vol] 138 mmol/L Normal 136-145 [facility] Comment on above: Performed By: #### M G, CMP #### [facility] [address] [place] [address] Dr. Jossue Centeno Urea nitrogen [Mass/Vol] 11.0 mg/dL Normal 7.0-18.0 [facility] Comment on above: Performed By: #### M G, CMP #### [facility] [address] [place] [address] Dr. Jossue Centeno Urea nitrogen/Creatinine [Mass ratio] 14.5 mg/mg Normal [facility] Comment on above: Performed By: #### M G, CMP #### [facility] [address] [place] [address] Dr. Jossue Centeno Office Visit (Cardiology)on 12-02-2021 Follow-up visit Diagnoses/Problems Assessed Atypical chest pain (786.59) (R07.89) Cardiac enzymes elevated (790.5) (R74.8) Hypokalemia (276.8) (E87.6) Hypomagnesemia (275.2) (E83.42) Class 1 obesity with body mass index (BMI) of 31.0 to 31.9 in adult (278.00,V85.31) (E66.9,Z68.31) Never a smoker Orders Atypical chest pain Echocardiogram; Status:Hold For - Scheduling,Retrospect pratik Authorization; Requested for:[id number]; Atypical chest pain, Cardiac enzymes elevated, Hypokalemia, Hypomagnesemia Cardiac Stress Test; Status:Hold For - Scheduling,Retrospect pratik Authorization; Requested for:[id number]; Class 1 obesity with body mass index (BMI) of 31.0 to 31.9 in adult Healthy Weight Tips; Status:Complete - Retrospective Authorization; Done: [id number] SocHx: Never a smoker Tobacco Use Screening; Status:Complete; Done: [id number] Tobacco Use Screening; Status:Complete; Done: [id number] Tobacco Use Screening; Status:Complete; Done: [id number] Patient Instructions By signing my name below, [...] negative for complaint. Vitals Vital Signs Recorded: [id number] 09:05AMRecorded: [id number] 09:04AM [id number], LUE, Lnfaxrq591, RUE, Sitting Byddcngaz06, LUE, Hbcaoax43, RUE, Sitting Heart Rate66, Apical Height5 ft 10 in Yqmrjx781 lb BMI Osfmmbjmsk11.14 kg/m2 BSA Calculated2.16 Tobacco Useb) No PHQ-2 [...] 2+ bilate (more content not included)... [facility] Tobacco Screening.on 022 Adult depression screening assessment [facility] Work Phone: Fall risk assessment c) Not medically indicated [facility] Work Phone: Tobacco use status CP b) [facility] Work Phone: POTASSIUMon 11-16-2021 Potassium [Moles/Vol] 3.8 mmol/L Normal 3.5-5.1 [facility] Comment on above: Performed By: #### K #### [facility] [address] [place] [address] Dr. Jossue Centeno POTASSIUMon 11-12-2021 Potassium [Moles/Vol] 3.7 mmol/L Normal 3.5-5.1 [facility] Comment on above: Performed By: #### K #### [facility] [address] [place] [address] Dr. Jossue Centeno HEMOGRAM AND PLATELon 2021 Hematocrit (Bld) [Volume fraction] 45.0 % Normal 42.0-54.0 [facility] Comment on above: Performed By: #### H H #### [facility] [address] [place] [address] Dr. Jossue Centeno Hemoglobin (Bld) [Mass/Vol] 15.1 g/dL Normal 14.0-18.0 [facility] Comment on above: Performed By: #### H H #### [facility] [address] [place] [address] Dr. Jossue Centeno MCH (RBC) [Entitic mass] 27.9 pg Normal 25.9-34.0 [facility] Comment on above: Performed By: #### H H #### [facility] [address] [place] [address] Dr. Jossue Centeno MCHC (RBC) [Mass/Vol] 33.6 g/dL Normal 29.9-35.2 [facility] Comment on above: Performed By: #### H H #### [facility] [address] [place] [address] Dr. Jossue Centeno MCV (RBC) [Entitic vol] 83.2 fL Normal 80.0-94.0 [facility] Comment on above: Performed By: #### H H #### [facility] [address] [place] [address] Dr. Jossue Centeno PLT 299 103/ul Normal 150-450 [facility] Comment on above: Performed By: #### H H #### [facility] [address] [place] [address] [address] Jossue Centeno RBC 5.41 106/ul Normal 4.70-6.10 [facility] Comment on above: Performed By: #### H H #### [facility] [address] [place] [address] Dr. Jossue Centeno WBC 10.2 103/ul Normal 4.0-11.0 [facility] Comment on above: Performed By: #### H H #### [facility] [address] [place] [address] Dr. Jossue Centeno MAGNESIUMon 11-11-2021 Magnesium [Mass/Vol] 1.3 mg/dL Critically low 1.8-2.4 [facility] Comment on above: Performed By: #### K #### [facility] [address] [place] [address] Dr. Jossue Centeno RENAL FUNCTION PANELon 11-11 Albumin [Mass/Vol] 4.1 g/dL Normal 3.4-5.0 [facility] Comment on above: Performed By: #### K #### [facility] [address] [place] [address] Dr. Jossue Centeno Calcium [Mass/Vol] 9.4 mg/dL Normal 8.5-10.1 [facility] Comment on above: Performed By: #### K #### [facility] [address] [place] [address] Dr. Jossue Centeno Chloride [Moles/Vol] 102 mmol/L Normal 98-107 [facility] Comment on above: Performed By: #### K #### [facility] [address] [place] [address] Dr. Jossue Centeno CO2 [Moles/Vol] 30.7 mmol/L Normal 21.0-32.0 [facility] Comment on above: Performed By: #### K #### [facility] [address] [place] [address] Dr. Jossue Centeno Creatinine [Mass/Vol] 0.83 mg/dL Normal 0.70-1.30 [facility] Comment on above: Performed By: #### K #### [facility] [address] [place] [address] [address] Jossue Centeno EGFR-AF GREEK >60 Normal >=60 [facility] Comment on above: Performed By: #### K #### [facility] [address] [place] [address] [address] Jossue Centeno EGFR-NON AF GREEK >60 Normal >=60 [facility] Comment on above: Performed By: #### K #### [facility] [address] [place] [address] [address] Jossue Centeno Glucose [Mass/Vol] 94 mg/dL Normal 74-106 [facility] Comment on above: Performed By: #### K #### [facility] [address] [place] [address] Dr. Jossue Centeno Phosphate [Mass/Vol] 2.4 mg/dL Critically low 2.6-4.7 [facility] Comment on above: Performed By: #### K #### [facility] [address] [place] [address] Dr. Jossue Centeno Potassium [Moles/Vol] 5.7 mmol/L Critically high 3.5-5.1 [facility] Comment on above: Performed By: #### K #### [facility] [address] [place] [address] Dr. Jossue Centeno Sodium [Moles/Vol] 139 mmol/L Normal 136-145 [facility] Comment on above: Performed By: #### K #### [facility] [address] [place] [address] Dr. Jossue Centeno Urea nitrogen [Mass/Vol] 13.0 mg/dL Normal 7.0-18.0 [facility] Comment on above: Performed By: #### K #### [facility] [address] [place] [address] Dr. Jossue Centeno CARDIAC ESTUARDO 3-6on 2 CK [Catalytic activity/Vol] 536 U/L Critically high 39-308 [facility] Comment on above: Performed By: #### K #### [facility] [address] [place] [address] Dr. Jossue Centeno CK.MB [Mass/Vol] 3.09 ng/mL Normal <=3.60 [facility] Comment on above: Performed By: #### K #### [facility] [address] [place] [address] Dr. Jossue Centeno HSTROP 179.4 pg/mL Critically high 4.0-76.1 [facility] Comment on above: Result Comment: CUT- OFF POINTS HAVE BEEN ESTABLISHED BASED ON THE FOURTH UNIVERSAL DEFINITIONS OF MYOCARDIAL INFARCTION. THE UPPER REFERENCE LIMIT (URL) OF TROPONIN, DEFINED THE 99TH PERCENTILE OF cTnI DISTRIBUTION IN A REFERENCE POPULATION, HAS BEEN CONFIRMED THE DECISION THRESHOLD FOR [place] DIAGNOSIS. TEST REPEATED. CRITICAL VALUE VERIFIED Performed By: #### K #### [facility] [address] [place] [address] Dr. Jossue Centeno CARDIAC ESTUARDO ADMITon 022 CK [Catalytic activity/Vol] 607 U/L Critically high 39-308 [facility] Comment on above: Performed By: #### B MARY QUEEN #### [facility] [address] [place] [address] Dr. Jossue Centeno CK.MB [Mass/Vol] 3.82 ng/mL Critically high <=3.60 [facility] Comment on above: Result Comment: TEST REPEATED. CRITICAL VALUE VERIFIED Performed By: #### B MARY QUEEN #### [facility] [address] [place] [address] Dr. Jossue Centeno HSTROP 187.8 pg/mL Critically high 4.0-76.1 [facility] Comment on above: Result Comment: CUT- OFF POINTS HAVE BEEN ESTABLISHED BASED ON THE FOURTH UNIVERSAL DEFINITIONS OF MYOCARDIAL INFARCTION. THE UPPER REFERENCE LIMIT (URL) OF TROPONIN, DEFINED THE 99TH PERCENTILE OF cTnI DISTRIBUTION IN A REFERENCE POPULATION, HAS BEEN CONFIRMED THE DECISION THRESHOLD FOR [place] DIAGNOSIS. TEST REPEATED. CRITICAL VALUE VERIFIED Performed By: #### B BERNICE, CMADM #### [facility] [address] [place] [address] Dr. Jossue Centeno MELVI 100 ng/mL Critically high 16-96 [facility] Comment on above: Performed By: #### B MP, CMADM #### [facility] [address] [address] [address] Jossue Centeno CBC AUTO DIFFon 11-08-2021 BASO # 0.1 103/ul Normal 0.0-0.1 [facility] Comment on above: Performed By: #### K #### [facility] [address] [address] [address] Jossue Centeno Basophils/100 WBC (Bld) 0.5 % Normal 0.2-2.0 [facility] Comment on above: Performed By: #### K #### [facility] [address] [place] [address] Dr. Jossue Centeno EO # 0.2 103/ul Normal 0.0-0.7 [facility] Comment on above: Performed By: #### K #### [facility] [address] [place] [address] Dr. Jossue Centeno Eosinophils/100 WBC (Bld) 1.3 % Normal 0.9-7.0 [facility] Comment on above: Performed By: #### K #### [facility] [address] [place] [address] Dr. Jossue Centeno Erythrocyte distribution width (RBC) [Ratio] 12.6 % Normal 11.0-15.0 [facility] Comment on above: Performed By: #### K #### [facility] [address] [place] [address] Dr. Jossue Centeno Hematocrit (Bld) [Volume fraction] 41.4 % Critically low 42.0-54.0 [facility] Comment on above: Performed By: #### K #### [facility] [address] [place] [address] Dr. Jossue Centeno Hemoglobin (Bld) [Mass/Vol] 14.5 g/dL Normal 14.0-18.0 [facility] Comment on above: Performed By: #### K #### [facility] [address] [place] [address] Dr. Jossue Centeno IG # 0.05 10e3/ul Critically high 0.00-0.03 [facility] Comment on above: Performed By: #### K #### [facility] [address] [place] [address] Dr. Jossue Centeno IG % 0.4 % Normal 0.0-0.5 [facility] Comment on above: Performed By: #### K #### [facility] [address] [place] [address] Dr. Jossue Centeno LYMPH # 1.6 103/ul Normal 1.2-3.8 [facility] Comment on above: Performed By: #### K #### [facility] [address] [place] [address] Dr. oJssue Centeno Lymphocytes/100 WBC (Bld) 12.4 % Critically low 20.5-60.0 [facility] Comment on above: Performed By: #### K #### [facility] [address] [place] [address] Dr. Jossue Centeno MANUAL DIFF REQ NO Normal [facility] Comment on above: Performed By: #### K #### [facility] [address] [place] [address] Dr. Jossue Centeno MCH (RBC) [Entitic mass] 28.3 pg Normal 25.9-34.0 [facility] Comment on above: Performed By: #### K #### [facility] [address] [place] [address] Dr. Jossue Centeno MCHC (RBC) [Mass/Vol] 35.0 g/dL Normal 29.9-35.2 [facility] Comment on above: Performed By: #### K #### [facility] [address] [place] [address] Dr. Jossue Centeno MCV (RBC) [Entitic vol] 80.7 fL Normal 80.0-94.0 [facility] Comment on above: Performed By: #### K #### [facility] [address] [place] [address] Dr. Jossue Centeno MONO # 0.9 103/ul Critically high 0.3-0.8 [facility] Comment on above: Performed By: #### K #### [facility] [address] [place] [address] Dr. Jossue Centeno Monocytes/100 WBC (Bld) 6.9 % Normal 1.7-12.0 [facility] Comment on above: Performed By: #### K #### [facility] [address] [place] [address] Dr. Jossue Centeno NEUT # 10.3 103/ul Critically high 1.4-6.5 [facility] Comment on above: Performed By: #### K #### [facility] [address] [place] [address] Dr. Jossue Centeno Neutrophils/100 WBC (Bld) 78.5 % Critically high 43.0-75.0 [facility] Comment on above: Performed By: #### K #### [facility] [address] [place] [address] Dr. Jossue Centeno Platelet mean volume (Bld) [Entitic vol] 9.5 fL Normal 9.5-13.5 [facility] Comment on above: Performed By: #### K #### [facility] [address] [place] [address] Dr. Jossue Centeno PLT 306 103/ul Normal 150-450 [facility] Comment on above: Performed By: #### K #### [facility] [address] [place] [address] Dr. Jossue Centeno RBC 5.13 106/ul Normal 4.70-6.10 [facility] Comment on above: Performed By: #### K #### [facility] [address] [place] [address] Dr. Jossue Centeno WBC 13.1 103/ul Critically high 4.0-11.0 [facility] Comment on above: Performed By: #### K #### [facility] [address] [place] [address] Dr. Jossue Centeno LIVER PROFILEon 11-08-2021 Albumin [Mass/Vol] 3.8 g/dL Normal 3.4-5.0 [facility] Comment on above: Performed By: #### L BOO #### [facility] [address] [address] [address] Jossue Centeno Albumin/Globulin [Mass ratio] 1.1 {ratio} Normal [facility] Comment on above: Performed By: #### L IVER #### [facility] [address] [address] [address] Jossue Centeno ALP [Catalytic activity/Vol] 91 U/L Normal 46-116 [facility] Comment on above: Performed By: #### L IVER #### [facility] [address] [address] [address] Jossue Centeno ALT [Catalytic activity/Vol] 69 U/L Critically high 16-63 [facility] Comment on above: Performed By: #### L IVER #### [facility] [address] [place] [address] Dr. Jossue Centeno AST [Catalytic activity/Vol] 40 U/L Critically high 15-37 [facility] Comment on above: Performed By: #### L IVER #### [facility] [address] [address] [address] Jossue Centeno BILI, CONJUGATED 0.1 mg/dL Normal 0.0-0.2 [facility] Comment on above: Performed By: #### L IVER #### [facility] [address] [place] [address] Dr. Jossue Centeno Bilirubin [Mass/Vol] 0.6 mg/dL Normal 0.2-1.0 [facility] Comment on above: Performed By: #### L IVER #### [facility] [address] [address] [address] Jossue Centeno Globulin (S) [Mass/Vol] 3.4 g/dL Normal T [facility] Comment on above: Performed By: #### L IVER #### [facility] [address] [address] [address] Jossue Centeno Protein [Mass/Vol] 7.2 g/dL Normal 6.4-8.2 [facility] Comment on above: Performed By: #### L IVER #### [facility] [address] [address] [address] Jossue Centeno PROF CHEM 8 (BAS METB)on Anion gap [Moles/Vol] 10.3 mmol/L Normal Th [facility] Comment on above: Performed By: #### B BERNICE, CMADM #### [facility] [address] [address] [address] Jossue Centeno Calcium [Mass/Vol] 8.9 mg/dL Normal 8.5-10.1 [facility] Comment on above: Performed By: #### B BERNICE, CMADM #### [facility] [address] [address] [address] Jossue Centeno Chloride [Moles/Vol] 97 mmol/L Critically low 98-107 [facility] Comment on above: Performed By: #### B BERNICE, CMADM #### [facility] [address] [place] [address] Dr. Jossue Centeno CO2 [Moles/Vol] 34.0 mmol/L Critically high 21.0-32.0 [facility] Comment on above: Performed By: #### B BERNICE, CMADM #### [facility] [address] [place] [address] Dr. Jossue Centeno Creatinine [Mass/Vol] 0.89 mg/dL Normal 0.70-1.30 [facility] Comment on above: Performed By: #### B BERNICE, CMADM #### [facility] [address] [place] [address] Dr. Jossue Centeno EGFR-AF GREEK >60 Normal >=60 [facility] Comment on above: Performed By: #### B BERNICE, CMADM #### [facility] [address] [place] [address] Dr. Jossue Centeno EGFR-NON AF GREEK >60 Normal >=60 [facility] Comment on above: Performed By: #### B BERINCE, CMADM #### [facility] [address] [place] [address] Dr. Jossue Centeno Glucose [Mass/Vol] 98 mg/dL Normal 74-106 [facility] Comment on above: Performed By: #### B BERNICE, CMADM #### [facility] [address] [address] [address] Jossue Centeno Potassium [Moles/Vol] 2.4 mmol/L Critically low 3.5-5.1 [facility] Comment on above: Result Comment: TEST REPEATED. CRITICAL VALUE VERIFIED Performed By: #### B BERNICE, JIDM #### [facility] [address] [address] [address] Jossue Centeno Sodium [Moles/Vol] 139 mmol/L Normal 136-145 [facility] Comment on above: Performed By: #### B BERNICE, MRAY #### [facility] [address] [address] [address] Jossue Centeno Urea nitrogen [Mass/Vol] 14.0 mg/dL Normal 7.0-18.0 [facility] Comment on above: Performed By: #### B BERNICE, MARY #### [facility] [address] [address] [address] Jossue Centeno Urea nitrogen/Creatinine [Mass ratio] 15.7 mg/mg Normal [facility] Comment on above: Performed By: #### B BERNICE, JIDM #### [facility] [address] [address] [address] Jossue Centeno XR CHEST 2 Von [...] Date: 2021-11-08 20:44 Normal [facility] BASIC METABOLIC PANELon -3 Calcium 10.4 mg/dL High 8.6-10.3 [facility] Comment on above: Performed By: #### 1 0070, [id number] ####[facility] [place] [address], [facility] Chloride 99 mmol/L Normal 98-107 [facility] Comment on above: Performed By: #### 1 69, [id number] ####[facility] [place] [address], [facility] CO2 29 mmol/L Normal 21-31 [facility] Comment on above: Performed By: #### 1 69, [id number] ####[facility] [place] [address], [facility] Creatinine 0.82 mg/dL Normal 0.70-1.30 [facility] Comment on above: Performed By: #### 1 69, [id number] ####[place] [id number] [place] [address], [facility] eGFR (black) mL/min/{1.73_m2} Normal >60 [facility] Comment on above: Performed By: #### 1 69, [id number] ####[facility] [place] [address], [facility] eGFR (non-black) mL/min/{1.73_m2} Normal >60 Th e [facility] Comment on above: Performed By: #### 1 69, [id number] ####[facility] [place] [address], [facility] Glucose mass conc 84 mg/dL Normal 70-100 [facility] Comment on above: Performed By: #### 1 69, [id number] ####[facility] [place] [address], [facility] Potassium molar conc 4.5 mmol/L Normal 3.5-5.1 [facility] Comment on above: Performed By: #### 1 69, [id number] ####[facility] [place] [address], [facility] Sodium 136 mmol/L Normal 136-145 [facility] Comment on above: Performed By: #### 1 69, [id number] ####[facility] [place] [address], [facility] Urea nitrogen 14 mg/dL Normal 7- The [facility] Comment on above: Performed By: #### 1 69, [id number] ####[facility] [place] [address], [facility] MAGNESIUM BLOODon 06-07-2017 Magnesium 1.6 mg/dL Low 1.9-2.7 [facility] Comment on above: Performed By: #### 1 69, [id number] ####[facility] [place] [address] Vital Signs Date Time Vital Sign Value Performing Clinician Faci lity 09-27-2024 15:40-0400 Body height 177.8 cm [facility] 09-27-2024 15:40-0400 Body mass index (BMI) [Ratio] 35.2 kg/m2 [facility] 09-27-2024 15:40-0400 Body temperature 98.2 [degF] [facility] 09-27-2024 15:40-0400 Body weight 111.35 kg [facility] 09-27-2024 15:40-0400 Diastolic blood pressure 81 mm[Hg] [facility] 09-27-2024 15:40-0400 Heart rate 80 /min [facility] 09-27-2024 15:40-0400 Respiratory rate 16 /min [facility] 09-27-2024 15:40-0400 SaO2% (BldA) [Mass fraction] 97 % [facility] 09-27-2024 15:40-0400 Systolic blood pressure 121 mm[Hg] [facility] 12-01-2023 13:21-0400 Body height 177.8 cm [facility] 12-01-2023 13:21-0400 Body mass index (BMI) [Ratio] 34.4 kg/m2 [facility] 12-01-2023 13:21-0400 Body temperature 97.3 [degF] [facility] 12-01-2023 13:21-0400 Body weight 109.08 kg [facility] 12-01-2023 13:21-0400 Diastolic blood pressure 70 mm[Hg] [facility] 12-01-2023 13:21-0400 Heart rate 88 /min [facility] 12-01-2023 13:21-0400 Respiratory rate 16 /min [facility] 12-01-2023 13:21-0400 SaO2% (BldA) [Mass fraction] 97 % [facility] 12-01-2023 13:21-0400 Systolic blood pressure 110 mm[Hg] [facility] 10-06-2023 15:53-0400 Body height 177.8 cm MD Shaikh Alvarez Work Phone: [facility] 10-06-2023 15:53-0400 Body mass index (BMI) [Ratio] 34.9 kg/m2 MD Shaikh Alvarez Work Phone: [facility] 10-06-2023 15:53-0400 Body temperature 98.4 [degF] MD Shaikh Alvarez Work Phone: [facility] 10-06-2023 15:53-0400 Body weight 110.39 kg MD Shaikh Alvarez Work Phone: [facility] 10-06-2023 15:53-0400 Diastolic blood pressure 80 mm[Hg] MD Shaikh Alvarez Work Phone: [facility] 10-06-2023 15:53-0400 Heart rate 82 /min MD Shaikh Alvarez Work Phone: [facility] 10-06-2023 15:53-0400 Respiratory rate 16 /min MD Shaikh Alvarez Work Phone: [facility] 10-06-2023 15:53-0400 SaO2% (BldA) [Mass fraction] 98 % MD Shaikh Alvarez Work Phone: [facility] 10-06-2023 15:53-0400 Systolic blood pressure 119 mm[Hg] MD Shaikh Alvarez Work Phone: [facility] 09-01-2023 14:39-0400 Diastolic blood pressure 67 mm[Hg] MD Shaikh Alvarez Work Phone: [facility] 09-01-2023 14:39-0400 Heart rate 81 /min MD Shaikh Alvarez Work Phone: [facility] 09-01-2023 14:39-0400 Respiratory rate 16 /min MD Shaikh Alvarez Work Phone: [facility] 09-01-2023 14:39-0400 SaO2% (BldA) [Mass fraction] 96 % MD Shaikh Alvarez Work Phone: [facility] 09-01-2023 14:39-0400 Systolic blood pressure 116 mm[Hg] MD Shaikh Alvarez Work Phone: [facility] 09-01-2023 13:05-0400 Body height 177.8 cm MD Shaikh Alvarez Work Phone: [facility] 09-01-2023 13:05-0400 Body temperature 98.6 [degF] MD Shaikh Alvarez Work Phone: [facility] 09-01-2023 13:05-0400 Body weight 104.3 kg MD Shaikh Alvarez Work Phone: [facility] 08-18-2023 13:24-0400 Body height 172.72 cm MD Shaikh Alvarez Work Phone: [facility] 08-18-2023 13:24-0400 Body weight 104.32 kg MD Shaikh Alvarez Work Phone: [facility] 08-18-2023 13:24-0400 Diastolic blood pressure 87 mm[Hg] MD Shaikh Alvarez Work Phone: [facility] 08-18-2023 13:24-0400 Heart rate 99 /min MD Shaikh Alvarez Work Phone: [facility] 08-18-2023 13:24-0400 Respiratory rate 16 /min MD Shaikh Alvarez Work Phone: [facility] 08-18-2023 13:24-0400 SaO2% (BldA) [Mass fraction] 97 % MD Shaikh Alvarez Work Phone: [facility] 08-18-2023 13:24-0400 Systolic blood pressure 128 mm[Hg] MD Shaikh Alvarez Work Phone: [facility] 07-18-2023 13:02-0400 Body height 175.26 cm MD Shaikh Alvarez Work Phone: [facility] 07-18-2023 13:02-0400 Body mass index (BMI) [Ratio] 34.8 kg/m2 MD Shaikh Alvarez Work Phone: [facility] 07-18-2023 13:02-0400 Body weight 107.04 kg MD Shaikh Alvarez Work Phone: [facility] 07-18-2023 13:02-0400 Diastolic blood pressure 90 mm[Hg] MD Shaikh Alvarez Work Phone: [facility] 07-18-2023 13:02-0400 Heart rate 79 /min MD Shaikh Alvarez Work Phone: [facility] 07-18-2023 13:02-0400 Systolic blood pressure 129 mm[Hg] MD Shaikh Alvarez Work Phone: [facility] 06-16-2023 15:56-0500 Body height 172.7 cm Shaikh Kim CALL Work Phone: [facility] 06-16-2023 15:56-0500 Body mass index (BMI) [Ratio] 35.73 kg/m2 Shaikh Kim CALL Work Phone: [facility] 06-16-2023 15:56-0500 Body temperature 97.9 [degF] Shaikh Kim CALL Work Phone: [facility] 06-16-2023 15:56-0500 Body weight 106.59 kg Shaikh Kim CALL Work Phone: [facility] 06-16-2023 15:56-0500 Diastolic blood pressure 76 mm[Hg] Shaikh Kim CALL Work Phone: [facility] 06-16-2023 15:56-0500 Heart rate 72 /min Shaikh Kim CALL Work Phone: [facility] 06-16-2023 15:56-0500 SaO2% (BldA) [Mass fraction] 96 % Shaikh Kim CALL Work Phone: [facility] 06-16-2023 15:56-0500 Systolic blood pressure 110 mm[Hg] Shaikh Kim CALL Work Phone: [facility] 11-25-2022 15:40-0400 Body height 175.26 cm Marcelino Andra Other [employer] Other 11-25-2022 15:40-0400 Body mass index (BMI) [Ratio] 34.23 kg/m2 Marcelino Andra Other [facility] Other 11-25-2022 15:40-0400 Body temperature 98 [degF] Marcelino Andra Other [facility] Other 11-25-2022 15:40-0400 Body weight 105.14 kg Marcelino Andra Other [facility] Other 11-25-2022 15:40-0400 Diastolic blood pressure 81 mm[Hg] Marcelino Andra Other [facility] Other 11-25-2022 15:40-0400 Respiratory rate 18 /min Marcelino Andra Other [facility] Other 11-25-2022 15:40-0400 SaO2% (BldA) [Mass fraction] 98 % Marcelino Andra Other [facility] Other 11-25-2022 15:40-0400 Systolic blood pressure 134 mm[Hg] Marcelino Andra Other [facility] Other 12-02-2021 09:05-0400 Diastolic blood pressure 88 mm[Hg] Provider AMAProvider Work Phone: [phone] [place] [address] Work Phone: 12-02-2021 09:05-0400 Systolic blood pressure 118 mm[Hg] Provider AMAProvider Work Phone: [facility] Work Phone: 12-02-2021 09:04-0400 Body height 177.8 cm Provider AMAProvider Work Phone: [facility] Work Phone: 12-02-2021 09:04-0400 Body mass index (BMI) [Ratio] 31.14 kg/m2 Provider AMAProvider Work Phone: [facility] Work Phone: 12-02-2021 09:04-0400 Body surface area Derived from formula 2.16 m2 Provider AMAProvider Work Phone: [facility] Work Phone: 12-02-2021 09:04-0400 Body weight 98.43 kg Provider AMAProvider Work Phone: [facility] Work Phone: 12-02-2021 09:04-0400 Diastolic blood pressure 86 mm[Hg] Provider AMAProvider Work Phone: [facility] Work Phone: 12-02-2021 09:04-0400 Heart rate 66 /min Provider AMAProvider Work Phone: [facility] Work Phone: 12-02-2021 09:04-0400 Systolic blood pressure 122 mm[Hg] Provider AMAProvider Work Phone: [facility] Work Phone: 03-25-2021 12:20-0500 Body height 175.26 cm Marcelino Andra Other [facility] Other 03-25-2021 12:20-0500 Body mass index (BMI) [Ratio] 30.59 kg/m2 Marcleino Andra Other [facility] Other 03-25-2021 12:20-0500 Body temperature 99.1 [degF] Marcelino Andra Other [facility] Other 03-25-2021 12:20-0500 Body weight 93.99 kg Marcelino Andra Other [facility] Other 03-25-2021 12:20-0500 Diastolic blood pressure 82 mm[Hg] Marcelino Andra Other [facility] Other 03-25-2021 12:20-0500 Respiratory rate 18 /min Marcelino Andra Other [facility] Other 03-25-2021 12:20-0500 SaO2% (BldA) [Mass fraction] 96 % Marcelino Andra Other [facility] Other 03-25-2021 12:20-0500 Systolic blood pressure 125 mm[Hg] Marcelino Andra Other [facility] Other Encounters Encounter Date Encounter Type Care Provider Facility Start: 09-27-2024 End: 09-27-2024 ambulatory [facility] Work Phone: Start: 09-27-2024 End: 09-27-2024 Patient encounter procedure [facility] Physician [facility] Work Phone: Start: 09-27-2024 Non-patient / Non-visit [facility] Physician [facility] Professional [employer] Work Phone: Start: 07-30-2024 End: 07-30-2024 ambulatory SHAHANASUNDAR ROE Not Available Start: 03-31-2024 End: 03-31-2024 ambulatory Velasquez Kim Facility:[facility] Start: 03-20-2024 End: 03-20-2024 Clinisync Result Encounter Generic External Data Provider [facility] External Department Unsolicited Start: 03-20-2024 End: 03-20-2024 Clinisync Result Encounter Generic External Data Provider [facility] External Department Unsolicited Start: 12-01-2023 End: 12-01-2023 ambulatory [facility] Work Phone: Start: 12-01-2023 End: 12-01-2023 Patient encounter procedure [facility] Physician [facility] Work Phone: Start: 11-21-2023 Non-patient / Non-visit [facility] Physician [facility] [employer] Work Phone: Start: 11-19-2023 Non-patient / Non-visit [facility] Physician [facility] [employer] Work Phone: Start: 10-26-2023 Non-patient / Non-visit [facility] Physician [facility] [employer] Work Phone: Start: 10-06-2023 End: 10-06-2023 ambulatory MD Shaikh Alvarez Work Phone: [facility] Work Phone: Start: 10-06-2023 End: 10-06-2023 Patient encounter procedure MD Shaikh Alvarez Work Phone: [facility] [facility] Nephrology Work Phone: Start: 10-06-2023 Non-patient / Non-visit MD Shaikh Alvarez Work Phone: [facility] Work Phone: Start: 09-01-2023 Non-patient / Non-visit MD Shaikh Alvarez Work Phone: [facility] Work Phone: Start: 09-01-2023 End: 09-01-2023 Admission to same day surgery center MD Shaikh Alvarez Work Phone: [facility]-Digestive [facility] Work Phone: Start: 09-01-2023 End: 09-01-2023 ambulatory MD Shaikh Alvarez Work Phone: [facility] Work Phone: Start: 08-18-2023 End: 08-18-2023 Admission to same day surgery center MD Shaikh Alvarez Work Phone: [facility]-Dig[facility]ive [facility] Work Phone: Start: 08-18-2023 End: 08-18-2023 ambulatory MD Shaikh Alvarez Work Phone: [facility] Work Phone: Start: 08-04-2023 End: 08-04-2023 ambulatory OSVALDO LEE Not Available Start: 08-02-2023 End: 08-02-2023 ambulatory JEREMIAH MERRITT Not Available Start: 07-23-2023 End: 07-23-2023 Patient encounter procedure MD Shaikh Alvarez Work Phone: [facility]-Ultrasound [facility] [place] Work Phone: Start: 07-23-2023 End: 07-23-2023 ambulatory MD Shaikh Alvarez Work Phone: [facility] Work Phone: Start: 07-18-2023 End: 07-18-2023 Patient encounter procedure MD Shaikh Alvarez Work Phone: [facility] Work Phone: Start: 06-22-2023 Orders Only Shaikh Kim CALL Work Phone: [facility] Comment on above: Infraspinatus strain , right, subsequent encounter (Primary Dx) Start: 06-16-2023 End: 06-16-2023 Office outpatient visit 25 minutes Shaikh Kim CALL Work Phone: [facility] Comment on above: Acute pain of right shoulder (Primary Dx) Start: 04-11-2023 End: 04-11-2023 ambulatory Imad Asaad Other [facility] Other Start: 04-11-2023 Encounter by [employer] link Imad Asaad [facility] Start: 11-25-2022 End: 11-25-2022 ambulatory Marcelino Andra Other [facility] Other Start: 11-25-2022 Office outpatient visit 15 minutes Marcelino Andra [facility] Start: 11-25-2022 Telephone encounter Marcelino Andra [facility] Start: 08-27-2022 End: 08-27-2022 ambulatory Marcelino Andra Other [facility] Other Start: 08-27-2022 Telephone encounter Marcelino Andra [facility] Start: 06-23-2022 End: 06-24-2022 ambulatory SHAIKH Sawyer ALVAREZ Facility:H1 Start: 01-27-2022 End: 01-28-2022 ambulatory NIDA CHUCK Facility:[facility]1 Start: 12-02-2021 Office outpatient ne w 45 minutes Provider AMAProvider Work Phone: [facility] Work Phone: Start: 11-16-2021 End: 11-17-2021 ambulatory MARCELINO ANDRA Facility:H1 Start: 11-12-2021 End: 11-13-2021 ambulatory MARCELINO ANDRA Facility:H1 Start: 11-11-2021 End: 11-12-[address] [facility] [employer] Other Start: 11-11-2021 Telephone encounter Marcelino Andra [facility] Start: 11-10-2021 End: 11-10-2021 ambulatory Marcelino Andra Other [facility] Other Start: 11-10-2021 Telephone encounter Marcelino Andra [facility] [place] Start: 11-08-2021 End: 11-09-2021 ambulatory NIDA CHUCK Facility:[facility]1 Start: 10-13-2021 End: 10-13-2021 ambulatory NIDA CHUCK Facility:[facility]1 Start: 10-12-2021 End: 10-12-2021 ambulatory Nida A Chuck PROOF MACHINE OPERATOR-C Facility:[facility] Start: 09-23-2021 ambulatory MARCELINO ANDRA Facility:H 1 Start: 03-25-2021 End: 03-25-2021 ambulatory Marcelino Andra Other [facility] Other Start: 03-25-2021 Office outpatient visit 15 minutes Marcelino Andra [facility] Start: 03-24-2021 End: 03-24-2021 ambulatory Marcelino Perdomodir Other [facility] Other Start: 03-24-2021 Telephone encounter Marcelino Perdomodir [facility] Care Transition Coordinator Start: 07-22-2017 End: 07-23-2017 Ambulatory MARBELLA TEMPLE Facility:[facility] Start: 06-07-2017 End: 06-08-2017 Ambulatory NICOLETTE DE DIOS Facility:[facility] Procedures Date Procedure Procedure Detail Performing [...] 01-08-2024 Influenza vaccination Influenza Vacc ine (#1) [facility] Start: 09-01-2023 [facility] Start: 08-18-2023 [facility] Start: 06-27-2023 End: 06-27-2023 Patient encounter procedure 06/27/2023 9:45 AM EST Office Visit [facility] [address] [place] [phone] Shaikh Alvarez MD [address] [place] [id number] [facility] Start: 06-23-2023 End: 06-23-2023 ambulatory 06/23/2023 1:00 PM EST Evaluation [facility] [address] [facility] [address] [place] [address] Edmundo Reina, PT [address] [facility] [place] [address] [facility] Start: 06-16-2023 End: 06-16-2024 MR Shoulder - right WO contrast MR shoulder right wo IV contrast Imaging Routine Acute pain of right shoulder Expected: 06/16/2023, Expires: 06/16/2024 [facility] Work Phone: Comment on above: Expected: 06/16/2023 , Expires: 06/16/2024 Start: 01-07-2023 Influenza vaccination Influenza Vacc ine (#1) [facility] Start: 01-05-2022 STRESS NUC, Provider : FRANCISCO [facility]VI NUCLEAR 01,[id number], Status: Pen, Time: 12:00 PM STRESS NUC, Provider: FRANCISCO [facility] NUCLEAR 01,[id number], Status: Pen, Time: 12:00 PM [facility] Work Phone: Start: 01-05-2022 ECHO, Provider: FRANCISCO [facility]VI ULTRASOUND 01,[id number], Status: Pen, Time: 9:45 AM ECHO, Provider: FRANCISCO [facility] ULTRASOUND 01,[id number], Status: Pen, Time: 9:45 AM [facility] Work Phone: Patient Education Gastric Ulcer (DC) [facility] Work Phone: Renal function 1999 panel - Serum or Plasma [facility] Renal function 1999 panel - Serum or Plasma [facility] Renal function 1999 panel - Serum or Plasma [facility] Immunizations Immunization Date Immunization Notes Care Provider Fa cility 10-04-2020 Pfizer-BioNTech COVID-19 Vacc 30 MCG/0.3ML Intramuscular Suspension Provider AMAProvider Work Phone: [facility] Work Phone: 09-07-2020 Pfizer-BioNTech COVID-19 Vacc 30 MCG/0.3ML Intramuscular Suspension Provider AMAProvider Work Phone: [phone] [place] [address] Work Phone: 12-14-2000 diphtheria, tetanus toxoids and acellular pertussis vaccine, unspecified formulation Provider AMAProvider Work Phone: [phone] [place] [address] Work Phone: 12-14-2000 measles, mumps and rubella virus vaccine Provider AMAProvider Work Phone: [phone] [place] [address] Work Phone: 12-14-2000 poliovirus vaccine, inactivated Provider AMAProvider Work Phone: [phone] [place] [address] Work Phone: 02-06-1997 diphtheria, tetanus toxoids and acellular pertussis vaccine, unspecified formulation Provider AMAProvider Work Phone: [phone] [place] [address] Work Phone: 02-06-1997 haemophilus influenz ae type b vaccine, conjugate unspecified formulation Provider AMAPrAudigenceder Work Phone: [phone] [place] [address] Work Phone: 02-06-1997 measles, mumps and rubella virus vaccine Provider AMAProvider Work Phone: [phone] [place] [address] Work Phone: 10-08-1996 diphtheria, tetanus toxoids and acellular pertussis vaccine, unspecified formulation Provider AMAPrAudigenceder Work Phone: [phone] [place] [address] Work Phone: 10-08-1996 haemophilus influenz ae type b vaccine, conjugate unspecified formulation Provider AMAProvider Work Phone: [phone] [place] [address] Work Phone: 10-08-1996 hepatitis B vaccine, pediatric or pediatric/adolescent dosage Provider AMAProvider Work Phone: [phone] [place] [address] Work Phone: 10-08-1996 trivalent poliovirus vaccine, live, oral Provider AMAProvider Work Phone: [phone] [place] [address] Work Phone: 04-02-1996 DTP-Haemophilus influenzae type b conjugate vaccine Provider AMAProvider Work Phone: [facility] Work Phone: 04-02-1996 trivalent poliovirus vaccine, live, oral Provider AMAProvider Work Phone: [facility] Work Phone: 1995 DTP-Haemophilus influenzae type b conjugate vaccine Provider AMAProvider Work Phone: [facility] Work Phone: 1995 hepatitis B vaccine, pediatric or pediatric/adolescent dosage Provider AMAProvider Work Phone: [facility] Work Phone: 1995 trivalent poliovirus vaccine, live, oral Provider AMAProvider Work Phone: [facility] Work Phone: 1995 hepatitis B vaccine, pediatric or pediatric/adolescent dosage Provider AMAProvider Work Phone: [facility] Work Phone: Payers Date Payer Category Payer Self-pay [id number] 2023 Private Health Insurance [facility] [id number] 2023 Private Health Insurance [id number] 2022 Private Health Insurance [facility] [id number] 2021 Unknown [id number] 2.16. [id number] 1995 Unknown [id number] 2.16.84 0.1.286940.3.579.2.593 1995 Unknown [id number] 2.16.84 0.1.944730.3.579.2.593 1995 Unknown [id number] 2.16.84 0.1.862324.3.579.2.593 1995 Unknown [id number] 2.16.84 0.1.846483.3.579.2.593 1995 Unknown [id number] 2.16.84 0.1.222116.3.579.2.593 1995 Unknown [id number] 2.16.84 0.1.126716.3.579.2.593 1995 Unknown [id number] 2.16.84 0.1.435198.3.579.2.593 1995 Unknown [id number] 2.16.84 0.1.592841.3.579.2.593 1995 Unknown [id number] 2.16.84 0.1.113774.3.579.2.718 1995 Unknown [id number] 2.16.84 0.1.963372.3.579.2.1259 1995 Unknown [id number] 2.16.84 0.1.705681.3.579.2.1259 1995 Unknown [id number] 2.16.84 0.1.816652.3.579.2.1259 1959 Private Health Insurance [id number] 1959 Private Health Insurance [id number] Self-pay [id number] 1959 Unknown [id number] Unknown [id number] Unknown Unknown [id number] 2.16.8 40.1.028938.3.579.2.531 Unknown [id number] 2.16.8 40.1.925066.3.579.2.531 Unknown [id number] 2.16.8 40.1.506967.3.579.2.531 Unknown [id number] 2.16.8 40.1.691215.3.579.2.531 Social History Date Type Detail Facility Unknown if ever smoked [facility] Other Start: 06-16-2023 Sex Assigned At [facility] Other Start: 06-16-2023 No illicit drug use No illicit drug use [facility] Work Phone: Comment on above: 1 can of pop daily.; Start: 06-16-2023 End: 10-06-2023 Tobacco smoking status NHIS Never smoked tobacco [facility] Start: 06-16-2023 End: 06-20-2023 Alcohol intake Lifetime non-drinker (finding) [facility] Start: 1995 Sex Assigned At Not on file [facility] Start: 1995 Sex Assigned At Male [facility] Start: 09-27-2024 Sex Male (finding) [facility] NEGATED: Highlighted rowStart: NINF History of tobacco use Passive smoker [facility] Goals Date Patient Goal Desired Activity /State Clinical Notes 03-25-2021 to 09-01-2023 Shaikh Kim MD - 06/16/2023 4:38 PM ESTSalyson Alvarez MD - 06/16/2023 3:45 PM EST Note Date & Type Note Facility 09-01-2023 Procedure note [facility] 06-16-2023 History of Present illness Narrative [...] weeks (around 06/30/2023). documented in this encounter [facility] 11-25-2022 Evaluation note Encounter [...] the Gitelman syndrome. Continue oral magnesium supplement. [facility] Other 04-21-2023 Evaluation note* Encounter Date Diagnosis Assessment Notes Treatment Notes Treatment Clinical Notes Aug, Hypomagnesemia (ICD-10 - E83.42) Aug, Hypokalemia (ICD-10 - E87.6) [facility] Other 07-06-2022 Evaluation note* Encounter Date Diagnosis Assessment Notes Treatment Notes Treatment Clinical Notes Nov, Leukocytosis (ICD-10 - D72.829) Nov, Hypomagnesemia (ICD-10 - E83.42) Nov, Hypokalemia (ICD-10 - E87.6) [facility] Other 07-04-2022 Chief complaint Narrative - Reported* [...] or ischemic defects and follow-up as needed [facility] Work Phone: [phone] 226-597207-04-2022 Chief complaint Narrative - Reported* WOOD HORN [...] or ischemic defects and follow-up as needed [facility] Work Phone: [phone] 105-423911-17-2021 Evaluation note* Encounter Date Diagnosis Assessment Notes [...] weeks to make sure it is resolved. [employer] Other [facility] [employer] Other Evaluation note* Diagnosis Acute pain of right shoulder- Primary documented in this encounter [facility] Diagnosis Infraspinatus strain, right, subsequent encounter- Primary documented in this encounter [facility] Diagnosis Onset Date Resolution Status Abdominal pain acute [facility] Work Phone: Evaluation note* Diagnosis Onset Date Resolution Status Abdominal pain acute Gitelman syndrome acute Hypokalemia acute Hypomagnesemia acute [facility] Work Phone: Evaluation note* Diagnosis Onset Date Resolution Status Gitelman syndrome acute Hypokalemia acute Hypomagnesemia acute Gitelman syndrome acute Hypokalemia acute Hypomagnesemia acute Proteinuria acute [facility] Work Phone: Evaluation noteNo assessment information available [facility] Work Phone: History and physical note Author Carlos Johnson [facility] September 01, 2023 2:03pm Note Date/Time September 01, 2023 1:5 2pm [facility] ENTER [address] [place] [address] Gastroenterology H&P Signed Patient: Wood Horn MR#: [id number] : 1995 Acct:[id number] Age/Sex: 27 / M Adm Date: 4 Loc: Room: Type: [facility] Attending Dr: Carlos Johnson MD [...] signed by Carlos Johnson MD> 09/01/23 1403 [facility] Work Phone: History general Narrative - [facility] [employer] Other History general Narrative - Reported* Type Description Date 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 [employer] Other Reason for referral (narrative)* Consultation (Routine) - Pending Review Specialty Diagnoses / Procedures Referred By Sonny peters Referred To Contact Orthopaedic Surgery Diagnoses Infraspinatus strain, right, subsequent encounter Shaikh Alvarez MD [address] [place] [address] Rey Cruz MD [address] [place] [address] Referral ID Status Reason Start Date Expiration Date Visits Requested Visits Authorized [id number] Pending Review Specialty Services Required 06/22/2023 12/19/2023 1 1 [facility] Healthcare Summary Purpose Family History Unknown Family [...] Referral Specialty Diagnoses / Procedures Referred By Contcayetano t Referred To Contact Diagnoses Acute pain of right shoulder Procedures MR shoulder right wo IV contrast Shaikh Alvarez MD [address] [place] [address] [facility] [address] [place] [address] Phone: [phone] Referral ID Status Reason Start Date Expiration Date V isits Requested Visits Authorized [id number] Pending Review 06/16/2023 12/13/2023 1 1 Specialty Diagnoses / Procedures Referred By Sonny peters Referred To Contact Physical Therapy Diagnoses Acute pain of right shoulder Procedures NM OFFICE/OUTPATIENT NEW HIGH MDM 60 MINUTES Shaikh Alvarez MD [address] [place] [address] Edmundo Reina, PT [address] [address] Referral ID Status Reason Start Date Expiration Date Visits Requested Visits Authorized [id number] Pending Review Consult and Treat 06/16/2023 12/13/2023 [...] Hypokalemia Hypomagnesemia Gitelman syndrome Hypokalemia Hypomagnesemia Proteinuria Chief Complaint Admit Date renal f/u September 27, 2024 3:36p m Additional Source Comments (unrecognized sect ion and content) No Status Records FoundNo Status Records FoundNo Status Records FoundNo Status Records FoundNo Status Records FoundNo Status Records Found INFORMATION SOURCE (unrecogn ized section and content) DATE CREATED AUTHOR 10/28/2017 [facility] DATE CREATED AUTHOR AUTHOR'S AZALIA ATFRANK 12/05/2021 [facility] DATE CREATED AUTHOR AUTHOR'S ORGANIZ ATION 06/28/2022 [facility] DATE CREATED AUTHOR AUTHOR'S ORGANIZ ATION 02/18/2024 [facility] DATE CREATED AUTHOR AUTHOR'S ORGANIZ ATION 04/12/2024 [facility] ys[facility] Group DATE CREATED AUTHOR AUTHOR'S ORGANIZ ATION 07/30/2024 [facility] dical Specialists EPIC REASON FOR VISIT (unrecogniz ed section and content) Reason Comments Shoulder Pain RIGHT Care Teams (unrecognized sec tion and content) Team Status: Active Member Role Status Dates Shaikh Kim MD Primary Care Provider Active Team Status: Active Member Role Status Dates Shaikh Kim MD Primary Care Provider Active Start: October 06, 2023 Marcelnio Villegas MD Attending Provider Active Start : [...] December 01, 2023 End: December 01, 2023 Euclid Operator Relationship Specialty Start Date End Date Shaikh Alvarez MD [address] [facility] [place] [address] PCP - General Internal Medicine 06/16/23 Euclid Operator Relationship Specialty Start Date End Date Shaikh Alvarez MD [address] [place] [address] PCP - General Internal Medicine 06/16/23 Team Status: Inactive Member Role Status Dates Nida Woods APRN PROOF MACHINE OPERATOR-C Primary Care Provider Active Start: [...] Provider Act pratik Start: September 01, 2023 Euclid Operator Relationship Specialty Start Date End Date Shaikh Alvarez MD [address] [place] [address] PCP - General Internal Medicine 06/16/23 Team Status: Active Member Role Status Dates Shahana Roe PROOF MACHINE OPERATOR-C Primary Care Provider Active Team Status: Active Member Role Status Dates Shaikh Kim MD Primary Care Provider Active Start: September 27, 2024 Marcelino Villegas MD Attending Provider Active Start : September 27, 2024 Team Status: Inactive Member Role Status Dates Marcelino Villegas MD Attending Provider Active Start : September 27, 2024 End: September 27, 2024 BRANDEN Ugalde Primary Care Provider Active Start: September 27, 2024 End: September 27, 2024 Goals (unrecognized section and content) Goals may [...] BE BASED ON THE PRIMARY CLINICAL RECORDS. [employer] provides no warranty or guarantee of the accuracy or completeness of information in this document.
--- OUTSIDE RECORDS SUMMARY | 2024-11-06 07:32 | XMS_ITS | Patient Health Record ---
Author Organization [facility] Address [address] [place] [address] Care Team Providers Care Outside Machinist Name Role Phone Rey Cruz Unavailable [phone] SHAIKH COYNE Unavailable Unavailable Allergies No Known [...] Risk Notes Problem Bursitis of right shoulder ([id number] 107) Bursitis of right shoulder (M75.51) Active confirmed Problem Right shoulder tendonitis (M77.8) Active confirmed Plan Of Treatment No Information Insurance Providers Payer Name Payer Address Payer Phone Subscriber Number Group Number Insured Name Patient Relationship to Insured Coverage Start Date Coverage End Date [employer] CLAIMS [address] [place] [address] [id number] SOFIE MENDOZA Self - patient is the [...]
--- OUTSIDE RECORDS SUMMARY | 2024-11-06 07:32 | XMS_ITS | Clinical Summary ---
Author Organization [facility] Address [facility] [address] [place] [address] Care Team Providers Care Grader Tender Name Role Phone Maribell Young MD Primary Care Provider [phone] Social History Tobacco Use Types Packs/Day Years [...] 01/07/2025 Medical Devices Not on file Insurance [facility] MEDICAID Care Teams Grader Tender Relationship Specialty Start Date End Date Maribell Young MD [address] [place] [address] PCP - General Family Medicine 04/06/17
--- OUTSIDE RECORDS SUMMARY | 2024-11-06 07:32 | XMS_ITS | Encounter Summary ---
Author Organization [facility] Address [address] [place] [address] Care Team Providers Care Pest Locator Name Role Phone Shaikh ONEYDA Alvarez Primary Care Provider [phone] Verena White MD Primary Care Provider [phone] Shahana Barron LITHOGRAPHIC CAMERA OPERATOR Unavailable [phone] Encounter Details Date Type Department Care Team (Late st Contact Info) Description 06/21/2023 Clinisync Result Encounter [facility] External Department Unsolicited Shaikh Alvarez MD [address] [place] [address] Social History Tobacco Use Types Packs/Day Years [...] PM EST Narrative 06/21/2023 3:37 PM EST [address] [address] Magnetic Resonance Report Signed Patient: WOOD MENDOZA MR#: [id number] : 1995 Acct:[id number] Age/Sex: 27 / M ADM Date: 06/21/23 Loc: MRI Attending Dr: Shaikh Kim Elliott Ordering Physician: Shaikh Earl Alvarez Date of Service: 06/21/23 Procedure(s): MR shoulder RT wo con Accession Number(s): [id number] cc: Shaikh Earl Alvarez [address] [address] Patient Name: WOOD MENDOZA MRN: [id number] date: 1995 Sex: M Assigned Patient Location: MRI Current Patient Location: MRI Accession/Order Number: [id number] Exam Date: 06/21/2023 14:38 Report Date: 06/21/2023 [...] Signed By: 06/21/23 1537 DD/ 1535 TD/TT: Heel Top Lift Splitter: Procedure Note Radiology, Radiologist, MD - 06/21/2023 [place] [address] Magnetic Resonance Report Signed Patient: WOOD MENDOZA LMR#: [id number] : 1995Acct:[id number] Age/Sex: 27 / MADM Date: 06/21/23 Loc: MRI Attending Dr: Shaikh Kim Elliott Ordering Physician: Shaikh Earl Alvarez Date of Service: 06/21/23 Procedure(s): MR shoulder RT wo con Accession Number(s): [id number] cc: Shaikh Earl Alvarez [address] [place] [address] Patient Name: WOOD MENDOZA MRN: [id number] date: 1995 Sex: M Assigned Patient Location: MRI Current Patient Location: MRI Accession/Order Number: [id number] Exam Date: 06/21/2023 14:38 Report Date: 06/21/2023 [...] M.D. Signed By:06/21/23 1537 DD/ 1535 TD/TT: Heel Top Lift Splitter: us Shaikh Kim CALL IMG MRI PROCEDURES Final Result documented in this encounter Visit Diagnoses Not on filedocumented in this encounter Care Teams Pest Locator Relationship Specialty Start Date End Date Shaikh Alvarez MD [address] [place] [address] PCP - General Internal Medicine 06/16/23 07/29/24 Verena White MD [address] [place] [address] PCP - General Family Medicine 07/30/24 Shahana Barron NP [address] [place] [address] Nurse Practitioner Family Medicine 07/31/24 documented as of this encounter
--- OUTSIDE RECORDS SUMMARY | 2024-11-06 07:32 | XMS_ITS | Clinical Summary ---
Author Organization [facility] Address [address] [place] [address] Care Team Providers Care Grain Distributor Name Role Phone Verena White MD Primary Care Provider [phone] Shahana Barron CONTAINER FILLER Unavailable [phone] Allergies No known active allergies Medications aMILoride [...] Department Care Team Description 09/30/2024 Abstract [facility] [address] [place] [address] Shahana Barron NP 08/09/2024 Telephone [facility] [address] [place] [address] Prema Remy LPN from Last 3 Months [...] Ended) 2025 Insurance [employer] Care Teams Grain Distributor Relationship Specialty Start Date End Date Verena White MD PCP - General Family Medicine 07/30/24 Shahana Barron NP [address] [place] [address] Nurse Practitioner Family Medicine 07/31/24
--- OUTSIDE RECORDS SUMMARY | 2024-11-06 07:32 | XMS_ITS | Encounter Summary ---
Author Organization [facility] [place] [facility] Address [address] [place] [address] Care Team Providers Care Natural Resource Economist Name Role Phone Maribell Johnson MD Primary Care Pr ovid Reason for Visit * Reason Comments Medication Refill Encounter Details Date Type Department Care Team (Late st Contact Info) Description 05/16/2012 Refill [facility] Pediatric Nephrology Spec [address] [facility] [address] [place] [phone] Isabell Collins MD [address] [place] [address] Medication Refill Social History Tobacco Use Types [...] metabolism documented in this encounter Care Teams Natural Resource Economist Relationship Specialty Start Date End Date Maribell Johnson MD PCP - General 07/30/11 documented as of this encounter
--- OUTSIDE RECORDS SUMMARY | 2024-11-06 07:32 | XMS_ITS | Encounter Summary ---
Author Organization [facility] Address [address] [facility] [place] [address] Care Team Providers Care Plumbing Contractor Name Role Phone Verena White MD Primary Care Provider [phone] Shahana Barron PHARMACY TECHNICIAN PER DIEM Unavailable [phone] Encounter Details Date Type Department Care Team (Late st Contact Info) Description 09/30/2024 Abstract [facility] [address] [place] [address] Shahana Barron NP [address] [place], [place] [phone] Social History Tobacco Use Types Packs/Day Years [...] on filedocumented in this encounter Care Teams Plumbing Contractor Relationship Specialty Start Date End Date Verena White MD PCP - General Family Medicine 07/30/24 Shahana Barron NP [address] [place] [address] Nurse Practitioner Family Medicine 07/31/24 documented as of this encounter
--- OUTSIDE RECORDS SUMMARY | 2024-11-06 07:32 | XMS_ITS | Encounter Summary ---
Author Organization [facility] Address [address] [place] [address] Phone Care Team Providers Care On Site Wastewater Systems Technician Name Role Phone Unavailable Primary Care Provider Unavailabl e Encounter Details Date Type Department Care Team (Late st Contact Info) Description 11/13/2021 Orders Only [facility] [address] [place] [address] Conversion, Onbase Social History Tobacco Use Types [...]
--- OUTSIDE RECORDS SUMMARY | 2024-11-06 07:32 | XMS_ITS | Encounter Summary ---
Author Organization [facility] Address [address] [place] [address] Care Team Providers Care Hand Ii Tube Bender Name Role Phone Maribell Johnson MD Primary Care Pr ovid Reason for Visit * Reason Comments Medication Refill Encounter Details Date Type Department Care Team (Late st Contact Info) Description 03/20/2017 Refill [facility] [address] [place] [phone] Salomon Lindsey PA-C [address] [place] [address] Medication Refill Social History Tobacco Use Types [...] metabolism documented in this encounter Care Teams Hand Ii Tube Bender Relationship Specialty Start Date End Date Maribell Johnson MD PCP - General 07/30/11 documented as of this encounter
--- OUTSIDE RECORDS SUMMARY | 2024-11-06 07:32 | XMS_ITS | Encounter Summary ---
Author Organization [facility] Address [address] [facility] [place] [address] Care Team Providers Care Sewing Machine Bobbin Winder Name Role Phone Shaikh ONEYDA Alvarez Primary Care Provider [phone] Verena White MD Primary Care Provider [phone] Shahana Barron BATTER MIXER Unavailable [phone] Encounter Details Date Type Department Care Team (Late st Contact Info) Description 07/25/2023 Orders Only [facility] [address] [place] [address] Shaikh Alvarez MD [address] [place] [phone] Social History Tobacco Use Types Packs/Day Years [...] on filedocumented in this encounter Care Teams Sewing Machine Bobbin Winder Relationship Specialty Start Date End Date Shaikh Alvarez MD [address] [place] [address] PCP - General Internal Medicine 06/16/23 07/29/24 Verena White MD [address] [place] [address] PCP - General Family Medicine 07/30/24 Shahana Barron NP [address] [place] [address] Nurse Practitioner Family Medicine 07/31/24 documented as of this encounter
--- OUTSIDE RECORDS SUMMARY | 2024-11-06 07:32 | XMS_ITS | Clinical Summary ---
Author Organization [facility] Address [address] [employer] [address] Care Team Providers Care Golf Ball Inspector Name Role Phone Maribell Johnson MD Primary [...] of Treatment Not on file Care Teams Golf Ball Inspector Relationship Specialty Start Date End Date Maribell Johnson MD PCP - General 07/30/11
--- OUTSIDE RECORDS SUMMARY | 2024-11-06 07:32 | XMS_ITS | Encounter Summary ---
Author Organization [facility] Address [address] [place] [address] Care Team Providers Care Manager Lpn Name Role Phone Shaikh ONEYDA Alvarez Primary Care Provider [phone] Verena White MD Primary Care Provider [phone] Shahana Barron BOTTLING ATTENDANT Unavailable [phone] Encounter Details Date Type Department Care Team (Late st Contact Info) Description 09/01/2023 Orders Only [facility] [address] [place] [address] Shaikh Alvarez MD [address] [place] [address] Social History Tobacco Use Types Packs/Day Years [...] on filedocumented in this encounter Care Teams Manager Lpn Relationship Specialty Start Date End Date Shaikh Alvarez MD [address] [place] [address] PCP - General Internal Medicine 06/16/23 07/29/24 Verena White MD [address] [place] [address] PCP - General Family Medicine 07/30/24 Shahana Barron NP [address] [place] [address] Nurse Practitioner Family Medicine 07/31/24 documented as of this encounter
--- OUTSIDE RECORDS SUMMARY | 2024-11-06 07:32 | XMS_ITS | Encounter Summary ---
Author Organization [facility] Address [address] [facility] [place] [address] Care Team Providers Care Balance Wheel Hand Filer Name Role Phone Shaikh ONEYDA Alvarez Primary Care Provider [phone] Veerna White MD Primary Care Provider [phone] Shahana Barron WAREHOUSE LEAD Unavailable [phone] Encounter Details Date Type Department Care Team (Late st Contact Info) Description 06/27/2023 Orders Only [facility] [address] [place] [address] Shaikh Alvarez MD [address] [place] [phone] Social History Tobacco Use Types Packs/Day Years [...] on filedocumented in this encounter Care Teams Balance Wheel Hand Filer Relationship Specialty Start Date End Date Shaikh Alvarez MD [address] [place] [phone] PCP - General Internal Medicine 06/16/23 07/29/24 Verena White MD [address] [place] [phone] PCP - General Family Medicine 07/30/24 Shahana Barron NP [address] [place] [address] Nurse Practitioner Family Medicine 07/31/24 documented as of this encounter
--- OUTSIDE RECORDS SUMMARY | 2024-11-06 07:32 | XMS_ITS | Clinical Summary ---
Author Organization [facility] Address [address] [place] [address] Phone Care Team Providers Care Electronic Equipment Repairmen Name Role Phone Unavailable Primary Care Provider [...]
--- OUTSIDE RECORDS SUMMARY | 2024-11-06 07:38 | XMS_ITS | CCD ---
Author Organization [facility] Care Team Providers Care Psychological Assistant Name Role Phone OSINOWO, OSIYEMI Unavailable Unavailable [...] Care Provider MD Carlos Johnson Attending Provider [phone] MD Eva Alvarez Primary Care Provider [phone] Chuck YOSTCNida Attending Unavailable Nida Sullivan Primary Care Unavailable Shaikh Alvarez MD Primary Care Provider [phone] Asaad, Imad Attending Unavailable Shaikh Alvarez Primary [...] 2023 12:00am take 2 tablets by mo [facility] in the morning aMILoride (Midamor) 5 MG tablet Take 10 mg by mouth in the morning and 10 mg before bedtime. Active take 2 tablets by mo [facility] every twelve hours magnesium chloride 535 [...] tablet 11/25/2022 Active take 6 tablets by [facility] every twelve hours Potassium Chloride ER 20 MEQ 6 tablets Orally bid for 90 day(s) Active take 6 tablets by [facility] every twelve hours predniSONE 20 mg [...] 11-08-2021 Episodic Other aftercare (1 source) Other terminal gauger (current) drug therapy; Translations: [OTH [facility] CURRENT DRUG THERAPY] Onset: 10-14-2021 Episodic Other [...] rate (GFR) non- >=60 mL/min/1.73 m 2 [facility] - Chemistry and C hemistry - challengeon 09-27-2024 Albumin [Mass/Vol] 3.6 g/dL 3.4-5.0 [facility] Calcium [Mass/Vol] 9.0 mg/dL 8.5-10.1 [facility] Chloride [Moles/Vol] 104 mmol/L 98-107 [facility] CO2 [Moles/Vol] 29.2 mmol/L 21.0-32.0 [facility] Creatinine [Mass/Vol] 0.75 mg/dL 0.70-1.30 [facility] GFR/1.73 sq M.predicted MDRD (S/P/Bld) [Vol rate/Area] mL/min/{1.73_m2} >=60 mL/min/1.73 m 2 [facility] Glucose [Mass/Vol] 108 mg/dL High 74-106 [facility] Magnesium [Mass/Vol] 1.3 mg/dL Low 1.8-2.4 [facility] Potassium [Moles/Vol] 4.4 mmol/L 3.5-5.1 [facility] Sodium [Moles/Vol] 142 mmol/L 136-145 [facility] Urea nitrogen [Mass/Vol] 15.0 mg/dL 7.0-18.0 [facility] Urea nitrogen/Creatinine [Mass ratio] 20.0 mg/mg [facility] No Panel Informationon 09-27 Phosphorus Level 2.3 mg/dL Low 2.6-4.7 [facility] Serum or plasma anion gap de terminationon 09-27-2024 Anion gap [Moles/Vol] Serum or plasma an ion gap determination [facility] Semen Analysis, Fertilityon 03-31-2024 Debris/Round Cells Many Normal [facility] Comment on above: Order Comment: Metho d of Collection:: Masturbation Has the patient had a vasectomy?: N Type of Specimen Container:: Sterile Container Abstinence Period:: 7 DAYS Kept at body temperature?: Y Any Collection or Transport Problems?: N/A Performed By: #### S EMCOMP #### [facility] [address] [place] [address] [place] Immotile Sperm 38 % Normal [facility] Comment on above: Order Comment: Metho d of Collection:: Masturbation Has the patient had a vasectomy?: N Type of Specimen Container:: Sterile Container Abstinence Period:: 7 DAYS Kept at body temperature?: Y Any Collection or Transport Problems?: N/A Performed By: #### S EMCOMP #### [facility] [address] [place] [id number] [place] Non-Progression Sperm Motili 6 % Normal [facility] Comment on above: Order Comment: Metho d of Collection:: Masturbation Has the patient had a vasectomy?: N Type of Specimen Container:: Sterile Container Abstinence Period:: 7 DAYS Kept at body temperature?: Y Any Collection or Transport Problems?: N/A Performed By: #### S EMCOMP #### [facility] [address] [place] [id number] [facility] Normal Sperm Morphology 12.0 % Normal >=4.0 T [facility] Comment on above: Order Comment: Metho d of Collection:: Masturbation Has the patient had a vasectomy?: N Type of Specimen Container:: Sterile Container Abstinence Period:: 7 DAYS Kept at body temperature?: Y Any Collection or Transport Problems?: N/A Performed By: #### S EMCOMP #### [facility] [address] [place] [id number] [place] Rapid Progression Sperm Motili 56 % Normal [facility] Comment on above: Order Comment: Metho d of Collection:: Masturbation Has the patient had a vasectomy?: N Type of Specimen Container:: Sterile Container Abstinence Period:: 7 DAYS Kept at body temperature?: Y Any Collection or Transport Problems?: N/A Performed By: #### S EMCOMP #### [address] Semen Appearance Normal Normal Normal [facility] Comment on above: Order Comment: Metho d of Collection:: Masturbation Has the patient had a vasectomy?: N Type of Specimen Container:: Sterile Container Abstinence Period:: 7 DAYS Kept at body temperature?: Y Any Collection or Transport Problems?: N/A Performed By: #### S EMCOMP #### [address] Semen Comment . Normal [facility] Comment on above: Order Comment: Metho d of Collection:: Masturbation Has the patient had a vasectomy?: N Type of Specimen Container:: Sterile Container Abstinence Period:: 7 DAYS Kept at body temperature?: Y Any Collection or Transport Problems?: N/A Result Comment: No A bnormal specimen characteristics noted. PERFORMED BY: [place] [address] PATHOLOGIST CORRIDOR REDEVELOPMENT MANAGER YOAV DE LEÓN M.D. Performed By: #### S EMCOMP #### [address] Semen Liquefaction Abnormal Critically abnormal <=60 min [facility] Comment on above: Order Comment: Metho d of Collection:: Masturbation Has the patient had a vasectomy?: N Type of Specimen Container:: Sterile Container Abstinence Period:: 7 DAYS Kept at body temperature?: Y Any Collection or Transport Problems?: N/A Performed By: #### S EMCOMP #### [address] Semen pH 8.5 Normal >=7.2 [facility] Comment on above: Order Comment: Metho d of Collection:: Masturbation Has the patient had a vasectomy?: N Type of Specimen Container:: Sterile Container Abstinence Period:: 7 DAYS Kept at body temperature?: Y Any Collection or Transport Problems?: N/A Performed By: #### S EMCOMP #### [facility] [address] [place] [id number] [place] Semen Viscosity Abnormal Critically abnormal Normal [facility] Comment on above: Order Comment: Metho d of Collection:: Masturbation Has the patient had a vasectomy?: N Type of Specimen Container:: Sterile Container Abstinence Period:: 7 DAYS Kept at body temperature?: Y Any Collection or Transport Problems?: N/A Performed By: #### S EMCOMP #### [address] Semen Volume 4.5 mL Normal >=1.5 [facility] Comment on above: Order Comment: Metho d of Collection:: Masturbation Has the patient had a vasectomy?: N Type of Specimen Container:: Sterile Container Abstinence Period:: 7 DAYS Kept at body temperature?: Y Any Collection or Transport Problems?: N/A Performed By: #### S EMCOMP #### [place] [address] [place] Sperm Concentration 59.3 Normal >=15 [facility] Comment on above: Order Comment: Metho d of Collection:: Masturbation Has the patient had a vasectomy?: N Type of Specimen Container:: Sterile Container Abstinence Period:: 7 DAYS Kept at body temperature?: Y Any Collection or Transport Problems?: N/A Performed By: #### S EMCOMP #### [place] [address] [place] Total Motility (NY+JAILOR) 62.0 % Normal >=40 (NY+JAILOR) [facility] Comment on above: Order Comment: Metho d of Collection:: Masturbation Has the patient had a vasectomy?: N Type of Specimen Container:: Sterile Container Abstinence Period:: 7 DAYS Kept at body temperature?: Y Any Collection or Transport Problems?: N/A Performed By: #### S EMCOMP #### [facility] [address] [place] [id number] [place] WBC Concent, Semen <1.0 Normal <1.0 [facility] Comment on above: Order Comment: Metho d of Collection:: Masturbation Has the patient had a vasectomy?: N Type of Specimen Container:: Sterile Container Abstinence Period:: 7 DAYS Kept at body temperature?: Y Any Collection or Transport Problems?: N/A Performed By: #### S EMCOMP #### [address] ALL MAGNESIUMon 03-20-2024 Magnesium [Mass/Vol] 1.4 mg/dL Low 1.8 - 2 .4 mg/dL [facility] ALL RENAL FUNCTION PANELon 1 05-20-2023 Albumin [Mass/Vol] 3.6 g/dL 3.4 - 5.0 g/dL [facility] Anion gap [Moles/Vol] 11.9 mmol/L [facility] Calcium [Mass/Vol] 9.2 mg/dL 8.5 - 10. 1 mg/dL [facility] Chloride [Moles/Vol] 99 mmol/L 98 - 10 7 mmol/L [facility] CO2 [Moles/Vol] 31.9 mmol/L 21.0 - 32.0 mmol/L [facility] Creatinine [Mass/Vol] 0.82 mg/dL 0.70 - 1.30 mg/dL [facility] GFR/1.73 sq M.predicted CKD-EPI (S/P/Bld) [Vol rate/Area] >60 >=60 mL/min/1.73 m 2 [facility] Glucose [Mass/Vol] 98 mg/dL 74 - 106 mg/dL [facility] Phosphate [Mass/Vol] 2.6 mg/dL 2.6 - 4 .7 mg/dL [facility] Potassium [Moles/Vol] 2.8 mmol/L Critically low 3.5 - 5.1 mmol/L [facility] Comment on above: RESULTS CALLED TO ISAC AMOR Sodium [Moles/Vol] 140 mmol/L 136 - 145 mmol/L [facility] TB EGFR-NON AF ICELANDIC >60 >=60 mL/min/1.73 m 2 [facility] Urea nitrogen [Mass/Vol] 12 mg/dL 7.0 - 18.0 mg/dL [facility] Urea nitrogen/Creatinine [Mass ratio] 14.6 mg/mg [facility] CBC WITH PLATELET NO DI FFERENTIALon 03-20-2024 Erythrocyte distribution width (RBC) [Ratio] 12.6 % 11.0 - 15.0 % [facility] Hematocrit (Bld) [Volume fraction] 45.8 % 42.0 - 54.0 % [facility] Hemoglobin (Bld) [Mass/Vol] 15.6 g/dL 14.0 - 18.0 g/dL [facility] Interpretation and review of laboratory results Abnormal [facility] MCH (RBC) [Entitic mass] 27.3 pg 25.9 - 34.0 pg [facility] MCHC (RBC) [Mass/Vol] 34.1 g/dL 29.9 - 35.2 g/dL [facility] MCV (RBC) [Entitic vol] 80.2 fL 80.0 - 94.0 fL [facility] Platelet mean volume (Bld) [Entitic vol] 8.7 fL Low 9.5 - 13.5 fL [facility] TB PLT 339 [facility] TB RBC 5.71 [facility] TB WBC 8.7 [facility] HMHP URINALYSIS, WITH MICROS COPICon 03-20-2024 BACTERIA URINE NONE SEEN NONE SEEN #/HPF [facility] BILIRUBIN URINE Negative NEGATIVE [facility] BLOOD URINE Negative NEGATIVE [facility] CAST SEEN? NONE SEEN NONE SEEN #/LPF [facility] Clarity (U) CLEAR CLEAR [facility] Color (U) LT. YELLOW YELLOW [facility] CRYSTALS SEEN? None Seen None Seen #/HPF [facility] GLUCOSE URINE UA Negative NEGATIVE mg/dL [facility] Ketones Ql (U) Negative NEGATIVE mg/dL [facility] Leukocyte esterase Test strip Ql (U) Negative NEGATIVE [facility] MUCUS URINE NONE SEEN NONE SEEN [facility] NITRITE URINE Negative NEGATIVE [facility] pH (U) 7.5 [pH] 5.0 - 9.0 [facility] PROTEIN URINE Negative NEG/TRACE mg/dL [facility] SPECIFIC GRAVITY URINE 1.015 1.005 - 1.025 [facility] SQUAMOUS EPITHELIAL CELL URINE NONE SEEN NONE/RARE #/LPF [facility] TBH RBC 0-2 [facility] TB WBC NONE SEEN NONE SEEN #/HPF [facility] UROBILINOGEN URINE 0.2 EU/dL 0.2 - 1.0 EU/dL [facility] No Panel Informationon 03-20 Interpretation and review of laboratory results Abnormal [facility] URINE T PROTEIN CREAT RA TIOon 03-20-2024 CREATININE URINE RANDOM 89.49 mg/dL 20.0 0 - 300.00 mg/dL [facility] Interpretation and review of laboratory results Abnormal [facility] Protein (U) [Mass/Vol] 13.6 mg/dL High NINF - 11.9 mg/dL [facility] PROTEIN CREATININE RATIO URINE 0.15 [facility] - Urinalysison Protein (U) [Mass/Vol] 20.3 mg/dL High <=11.9 [facility] Protein [Mass/time] in 24 ho ur Urineon 11-21-2023 Protein (24H U) [Mass/Time] 284.2 mg/24hr High <=149.1 [facility] Urine volume measurementon 11-21-2023 Specimen volume (U) 1400 mL/24hr [facility] Albumin [Mass/volume] in Ser um or Plasmaon 11-19-2023 Albumin [Mass/Vol] 3.7 g/dL 2.9-4.4 [facility] IgA [Mass/volume] in Serum o r Plasmaon 11-19-2023 IgA [Mass/Vol] 276 mg/dL 90-386 [facility] IgG [Mass/volume] in Serum o r Plasmaon 11-19-2023 IgG [Mass/Vol] 1297 mg/dL 603-1613 [facility] IgM [Mass/volume] in Serum o r Plasmaon 11-19-2023 IgM [Mass/Vol] 103 mg/dL 20-172 [facility] Immunofixation for Urineon 0 11-19-2023 Interpretation Immunofixation (U) [Interp] Comment . [facility] Comment on above: No monoclonality det ected.Performed at: [facility] [id number] Director: Sander Morel PhD, Phone: [phone] Immunoglobulin light chains. kappa.free [Mass/volume] in Serumon 11-19-2023 Immunoglobulin light chains.kappa.free (S) [Mass/Vol] 14.7 mg/L 3.3-19.4 [facility] Immunoglobulin light chains. kappa.free/Immunoglobulin light chains.lambda.free [Debby 11-19-2023 Immunoglobulin light chains.kappa.free/Immun oglobulin light chains.lambda.free (S) [Mass ratio] 0.86 0.26-1.65 [facility] Comment on above: Performed at: [facility] [address] [id number] Director: Sander Morel PhD, Phone: [phone] Immunoglobulin light chains. lambda.free [Mass/volume] in Serum or Plasmaon 11-19-2023 Immunoglobulin light chains.lambda.free [Mass/Vol] 17.1 mg/L 5.7-26.3 [facility] - Chemistry and C hemistry - challengeon 11-19-2023 Bilirubin Ql (U) Negative NEGATIVE [facility] Glucose (U) [Mass/Vol] Negative NEGATIVE [facility] Ketones Ql (U) Negative NEGATIVE [facility] pH (U) 6.0 [pH] 5.0-9.0 [facility] Specific gravity (U) [Rel density] 1.025 1.005-1.025 [facility] Urobilinogen Qn (U) 0.2 {Felix'U}/dL 0.2-1.0 [facility] - Specimen inform ationon 11-19-2023 Appearance (U) CLEAR CLEAR [facility] Color (U) YELLOW YELLOW [facility] - Urinalysison Leukocyte esterase Test strip Ql (U) Negative NEGATIVE [facility] Mucus Ql (Urine sed) NONE SEEN NONE SEEN [facility] Nitrite Ql (U) Negative NEGATIVE [facility] Protein (U) [Mass/Vol] 24.7 mg/dL High <=11.9 [facility] Protein Ql (U) Negative NEG/TRACE [facility] Myeloperoxidase Ab [Units/vo lume] in Serum by Immunoassayon 11-19-2023 Myeloperoxidase Ab IA Qn (S) <0.2 units 0.0-0.9 [facility] No Panel Informationon 11-18 Atypical p-ANCA <1:20 titer Neg:<1:20 [facility] Comment on above: The atypical pANCA p attern has been observed in asignificant percentage of patients with ulcerative colitis,primary sclerosing cholangitis and autoimmune hepatitis.Performed at: - [facility] [address] [id number] Director: Ronaldo Luo MD, Phone: [phone] at: - [facility] [address] [id number] Director: Sander Morel PhD, Phone: [phone] Perinuclear ANCA (p-ANCA) Antibody <1:20 titer Neg:<1:20 [facility] Comment on above: The presence of posi tive fluorescence exhibiting P-ANCA orC-ANCA patterns alone is not specific for the diagnosis ofWegener's Granulomatosis (WG) or microscopic polyangiitis.Decisions about treatment should not be based solely onANCA IFA results. The International ANCA Group Consensusrecommends follow up testing of positive sera with both NY-3 and MPO-ANCA enzyme immunoassays. As many as 5% serumsamples are positive only by EIA. Ref. AM J Clin Oistqq3078;111:507-513. Protein Electrophoresis M-Jhonatan Not Observed g/dL Not Observed [facility] Protein Electrophoresis Note Comment . [facility] Comment on above: Protein electrophore sis scan will follow via computer,mail, or corporate law specialist delivery. Urine Bacteria NONE SEEN #/HPF NONE SEEN [facility] Urine Occult Blood TRACE-I NEGATIVE [facility] Urine Other Casts NONE SEEN #/LPF NONE SEEN [facility] Urine Other Crystals None Seen #/HPF None Seen [facility] Urine Random Creatinine 151.16 mg/dL 20.0 0-300.0 0 [facility] Urine RBC 0-2 #/HPF 0-2 [facility] Urine Squamous Epithelial Cells RARE #/LPF NONE/RARE [facility] Urine WBC 0-2 #/HPF Abnormal NONE SEEN [facility] Nuclear Ab (S) [Titer]on Anti-Nuclear Antibody Screen Negative . [facility] Comment on above: Negative <1:80 Borde rline 1:80 Positive >1:80ICAP nomenclature: [id number] more information about Hep-2 cell patterns useNeptune.io.Insync, the official website for theInternational Consensus on Antinuclear Antibody (CRISTEL)Patterns (ICAP).Performed at: [facility] [employer] [id number] Director: Sander Morel PhD, Phone: [phone] Negative <1:80 Borde rline 1:80 Positive >1:80ICAP nomenclature: [id number] more information about Hep-2 cell patterns useNeptune.io.Insync, the official website for theInternational Consensus on Antinuclear Antibody (CRISTEL)Patterns (ICAP).Performed at: [facility] [id number] Director: Sander Morel PhD, Phone: [phone] Protein [Mass/volume] in Ser um or Plasmaon 11-19-2023 Protein [Mass/Vol] 7.3 g/dL 6.0-8.5 [facility] Proteinase 3 Ab [Units/volum e] in Serum by Immunoassayon 11-19-2023 Proteinase 3 Ab IA Qn (S) <0.2 units 0.0-0.9 [facility] Serum classic neutrophil cyt oplasmic antibody titer by immunofluorescenceon 11-19-2023 Neutrophil cytoplasmic Ab.classic IF (S) [Titer] <1:20 titer Neg:<1:20 [facility] Serum globulin measurement ( mass/volume)on 11-19-2023 Globulin (S) [Mass/Vol] 3.6 g/dL 2.2-3.9 [facility] Serum or plasma albumin/glob ulin mass ratioon 11-19-2023 Albumin/Globulin [Mass ratio] 1.1 {ratio} 0.7-1.7 [facility] Serum or plasma alpha 1 glob ulin measurement by electrophoresis (mass/volume)on 11-19-2023 Alpha 1 globulin Elph [Mass/Vol] 0.3 g/dL 0.0-0.4 [facility] Serum or plasma alpha 2 glob ulin measurement by electrophoresis (mass/volume)on 11-19-2023 Alpha 2 globulin Elph [Mass/Vol] 0.9 g/dL 0.4-1.0 [facility] Serum or plasma beta globuli n measurement by electrophoresis (mass/volume)on 11-19-2023 Beta globulin Elph [Mass/Vol] 1.2 g/dL 0.7-1.3 [facility] Serum or plasma gamma globul in measurement by electrophoresis (mass/volume)on 11-19-2023 Gamma globulin Elph [Mass/Vol] 1.3 g/dL 0.4-1.8 [facility] Serum or plasma immunoelectr ophoresis interpretationon 11-19-2023 Interpretation IEP [Interp] Comment . [facility] Comment on above: No monoclonality det ected. Urine protein/creatinine rat ioon 11-19-2023 Protein/Creatinine (U) [Ratio] 0.16 [facility] Erythrocyte distribution wid th Auto (RBC) [Ratio]on 10-26-2023 Erythrocyte distribution width (RBC) [Ratio] 12.7 % 11.0-15.0 [facility] Estimated glomerular filtrat ion rate (GFR) non- Americanon 10-26-2023 GFR/1.73 sq M.predicted among non-blacks MDRD (S/P/Bld) [Vol rate/Area] mL/min/{1.73_m2} >=60 [facility] Hematocrit Auto (Bld) [Volum e fraction]on 10-26-2023 Hematocrit (Bld) [Volume fraction] 45.0 % 42.0-54.0 [facility] Hemoglobin [Mass/volume] in Bloodon 10-26-2023 Hemoglobin (Bld) [Mass/Vol] 15.4 g/dL 14.0-18.0 [facility] - Chemistry and C hemistry - challengeon 10-26-2023 Albumin [Mass/Vol] 3.7 g/dL 3.4-5.0 [facility] Calcium [Mass/Vol] 8.9 mg/dL 8.5-10.1 [facility] Chloride [Moles/Vol] 99 mmol/L 98-107 [facility] CO2 [Moles/Vol] 31.1 mmol/L 21.0-32.0 [facility] Creatinine [Mass/Vol] 0.83 mg/dL 0.70-1.30 [facility] GFR/1.73 sq M.predicted MDRD (S/P/Bld) [Vol rate/Area] mL/min/{1.73_m2} >=60 [facility] Glucose [Mass/Vol] 105 mg/dL 74-106 [facility] Magnesium [Mass/Vol] 1.6 mg/dL Low 1.8-2.4 [facility] Potassium [Moles/Vol] 3.2 mmol/L Low 3.5-5.1 [facility] Sodium [Moles/Vol] 139 mmol/L 136-145 [facility] Urea nitrogen [Mass/Vol] 11.0 mg/dL 7.0-18.0 [facility] Urea nitrogen/Creatinine [Mass ratio] 13.3 mg/mg [facility] Bilirubin Ql (U) Negative NEGATIVE [facility] Glucose (U) [Mass/Vol] Negative NEGATIVE [facility] Ketones Ql (U) Negative NEGATIVE [facility] pH (U) 7.5 [pH] 5.0-9.0 [facility] Specific gravity (U) [Rel density] >=1.030 Abnormal 1.005-1.025 [facility] Urobilinogen Qn (U) 0.2 {Felix'U}/dL 0.2-1.0 [facility] - Specimen inform ationon 10-26-2023 Appearance (U) CLEAR CLEAR [facility] Color (U) LT. YELLOW YELLOW [facility] - Urinalysison Leukocyte esterase Test strip Ql (U) Negative NEGATIVE [facility] Mucus Ql (Urine sed) NONE SEEN NONE SEEN [facility] Nitrite Ql (U) Negative NEGATIVE [facility] Protein (U) [Mass/Vol] 807.8 mg/dL High <=11.9 [facility] Comment on above: UR TP RANDOM DILUTED AND REPEATED FOR VERIFICATION--- 10/26/23 1402 ---Ur TP Random previously reported as: 807.8 H mg/dL Protein Ql (U) 100 mg/dL Abnormal NEG/TRACE [facility] Leukocytes [#/volume] correc augusto for nucleated erythrocytes in Blood by Automated counon 10-26-2023 WBC corrected for nucl RBC Auto (Bld) [#/Vol] 10.5 10 3/uL 4.0-11.0 [facility] MCH Auto (RBC) [Entitic mass ]on 10-26-2023 MCH (RBC) [Entitic mass] 27.2 pg 25.9-34.0 [facility] MCHC Auto (RBC) [Mass/Vol]on 10-26-2023 MCHC (RBC) [Mass/Vol] 34.2 g/dL 29.9-35.2 [facility] MCV Auto (RBC) [Entitic vol] on 10-26-2023 MCV (RBC) [Entitic vol] 79.5 fL Low 80.0-94.0 [facility] No Panel Informationon 10-25 Phosphorus Level 2.8 mg/dL 2.6-4.7 [facility] Urine Bacteria TRACE #/HPF Abnormal NONE SEEN [facility] Urine Culture Reflexed NO [facility] Urine Occult Blood Negative NEGATIVE [facility] Urine Other Casts NONE SEEN #/LPF NONE SEEN [facility] Urine Other Crystals None Seen #/HPF None Seen [facility] Urine Random Creatinine 109.34 mg/dL 20.0 0-300.0 0 [facility] Urine RBC 2-5 #/HPF Abnormal 0-2 [facility] Urine Sperm SEEN [facility] Urine Squamous Epithelial Cells RARE #/LPF NONE/RARE [facility] Urine WBC 0-2 #/HPF Abnormal NONE SEEN [facility] Platelet mean volume Auto (B ld) [Entitic vol]on 10-26-2023 Platelet mean volume (Bld) [Entitic vol] 8.9 fL Low 9.5-13.5 [facility] Platelets Auto (Bld) [#/Vol] on 10-26-2023 Platelets (Bld) [#/Vol] 376 10 3/uL 150-450 [facility] RBC Auto (Bld) [#/Vol]on RBC (Bld) [#/Vol] 5.66 10 6/uL 4.70-6.10 [facility] Serum or plasma anion gap de terminationon 10-26-2023 Anion gap [Moles/Vol] 12.1 mmol/L [facility] Urine protein/creatinine rat ioon 10-26-2023 Protein/Creatinine (U) [Ratio] 7.39 [facility] Erythrocyte distribution wid th Auto (RBC) [Ratio]on 10-06-2023 Erythrocyte distribution width (RBC) [Ratio] 13.1 % 11.0-15.0 [facility] Estimated glomerular filtrat ion rate (GFR) non- Americanon 10-06-2023 GFR/1.73 sq M.predicted among non-blacks MDRD (S/P/Bld) [Vol rate/Area] mL/min/{1.73_m2} >=60 [facility] Hematocrit Auto (Bld) [Volum e fraction]on 10-06-2023 Hematocrit (Bld) [Volume fraction] 46.8 % 42.0-54.0 [facility] Hemoglobin [Mass/volume] in Bloodon 10-06-2023 Hemoglobin (Bld) [Mass/Vol] 15.7 g/dL 14.0-18.0 [facility] Laboratory - Chemistry and C hemistry - challengeon 10-06-2023 Albumin [Mass/Vol] 3.7 g/dL 3.4-5.0 [facility] Calcium [Mass/Vol] 8.9 mg/dL 8.5-10.1 [facility] Chloride [Moles/Vol] 102 mmol/L 98-107 [facility] CO2 [Moles/Vol] 31.8 mmol/L 21.0-32.0 [facility] Creatinine [Mass/Vol] 0.81 mg/dL 0.70-1.30 [facility] GFR/1.73 sq M.predicted MDRD (S/P/Bld) [Vol rate/Area] mL/min/{1.73_m2} >=60 [facility] Glucose [Mass/Vol] 95 mg/dL 74-106 [facility] Magnesium [Mass/Vol] 1.5 mg/dL Low 1.8-2.4 [facility] Potassium [Moles/Vol] 4.3 mmol/L 3.5-5.1 [facility] Sodium [Moles/Vol] 140 mmol/L 136-145 [facility] Urea nitrogen [Mass/Vol] 9.0 mg/dL 7.0-18.0 [facility] Urea nitrogen/Creatinine [Mass ratio] 11.1 mg/mg [facility] Leukocytes [#/volume] correc augusto for nucleated erythrocytes in Blood by Automated counon 10-06-2023 WBC corrected for nucl RBC Auto (Bld) [#/Vol] 6.8 10 3/uL 4.0-11.0 [facility] MCH Auto (RBC) [Entitic mass ]on 10-06-2023 MCH (RBC) [Entitic mass] 27.4 pg 25.9-34.0 [facility] MCHC Auto (RBC) [Mass/Vol]on 10-06-2023 MCHC (RBC) [Mass/Vol] 33.5 g/dL 29.9-35.2 [facility] MCV Auto (RBC) [Entitic vol] on 10-06-2023 MCV (RBC) [Entitic vol] 81.8 fL 80.0-94.0 [facility] No Panel Informationon 10-05 Phosphorus Level 2.3 mg/dL Low 2.6-4.7 [facility] Platelet mean volume Auto (B ld) [Entitic vol]on 10-06-2023 Platelet mean volume (Bld) [Entitic vol] 9.0 fL Low 9.5-13.5 [facility] Platelets Auto (Bld) [#/Vol] on 10-06-2023 Platelets (Bld) [#/Vol] 349 10 3/uL 150-450 [facility] RBC Auto (Bld) [#/Vol]on RBC (Bld) [#/Vol] 5.72 10 6/uL 4.70-6.10 [facility] Serum or plasma anion gap de terminationon 10-06-2023 Anion gap [Moles/Vol] 10.5 mmol/L [facility] Félix 09-01-2023 L Specimen: [id number] Received: 09/02/23 Status: MICHELLE De Guzman Num: [id number] Spec Type: Surgical Subm Dr: Carlos Johnson MD Tissues: A Duodenum - Biopsy (DUODENUM BX) B GASTRIC FOR HP (GASTRIC HP) C Esophagus Biopsy (ESOPHAGEAL BX) Procedures: HE/6, Gross/Micro L4/3, H PYLORI, IHC First AB Age/ Patient Sex Location Account Attending Physician [place] 27/M [id number] Carlos Johnson MD SPEC NUM: [id number] RECD: 09/02/23 STATUS: MICHELLE DE GUZMAN NUM: [id number] ALLEN: 09/01/23 DR: Carlos Johnson MD ENTERED: 09/02/23 [facility] DR: SPEC TYPE: Surgical DEPT: [...] cm, entirely submitted in A1. -------- Specimen: [id number] Received: 09/02/23 Status: MICEHLLE De Guzman Num: [id number] Spec Type: Surgical Subm Dr: Carlos Johnson MD Tissues: A Duodenum - Biopsy (DUODENUM BX) B GASTRIC FOR HP (GASTRIC HP) C Esophagus Biopsy (ESOPHAGEAL BX) Procedures: HE/6, Gross/Micro L4/3, H PYLORI, IHC First AB -------- Patient: Wood Horn Jennifer [id number] (Continued) -------- Specimen: [id number] Received: 09/02/23 (Continued) Gross Description (Continued) Signed (signature on file) Jaylen Caputo MD 09/06/23 1642 -------- Specimen: Received: 09/02/23 Status: MICHELLE De Guzman Num: [id number] Spec Type: Surgical Subm Dr: Carlos Johnson MD Tissues: A Duodenum - Biopsy (DUODENUM BX) B GASTRIC FOR HP (GASTRIC HP) C Esophagus Biopsy (ESOPHAGEAL BX) Procedures: HE/6, Gross/Micro L4/3, H PYLORI, IHC First AB -------- Patient: Wood Horn [id number] (Continued) -------- Specimen: [id number] Received: 09/02/23 (Continued) Gross Description (Continued) B. [...] H. pylori, rule out EOE CPT Codes [id number], [id number] -------- -------- Specimen: [id number] Received: 09/02/23 Status: MICHELLE De Guzman Num: [id number] Spec Type: Surgical Subm Dr: Carlos Johnson MD Tissues: A Duodenum - Biopsy (DUODENUM BX) B GASTRIC FOR HP (GASTRIC HP) C Esophagus Biopsy (ESOPHAGEAL BX) Procedures: HE/6, Gross/Micro L4/3, H PYLORI, IHC First AB -------- Patient: Wood Horn [id number] (Continued) -------- Signed (signature on file) Jaylen Caputo MD 09/06/232 Normal [facility] Magnesium [Mass/volume] in S joon or PlasmaOrdered By: Carlos Johnson on 09-01-2023 Magnesium [Mass/Vol] 1.1 mg/dL Low 1.9-2.7 [facility] Comment on above: Result Comment: PERF ORMED BY: [facility] [address] [place] [address] PATHOLOGIST CORRIDOR REDEVELOPMENT MANAGER LIEN TAN M.D. Performed By: #### M Cheryl, K #### [address] Potassium [Moles/volume] in Serum or PlasmaOrdered By: Imad Asaad on 09-01-2023 Potassium [Moles/Vol] 3.6 mmol/L Normal 3.5-5.1 [facility] Comment on above: Hemolysis is present at a level that could interfere with the result. Result Comment: Hemo lysis is present at a level that could interfere with the result. Performed By: #### M Cheryl, K #### [address] Arterial blood standard base excess determination by calculationOrdered By: Imad Asaad on 08-18-2023 Base excess standard Calc (BldA) [Moles/Vol] 9 mmol/L -2-3 [facility] Basophil percentageOrdered B y: Imad Asaad on 08-18-2023 Basophil percentage 46.3 mm[Hg] 35-51 [facility] Basophil percentage 36 mm[Hg] 80-105 [facility] Blood carbon dioxide, total measurement by calculation (moles/volume)Ordered By: Imad Asaad on 08-18-2023 CO2 Calc (Bld) [Moles/Vol] 34 mmol/L 23-29 [facility] Blood hemoglobin measurement by calculation (mass/volume)Ordered By: Imad Asaad on 08-18-2023 Hemoglobin (Bld) [Mass/Vol] 16.7 g/dL Normal 12.0-17.0 [facility] Comment on above: Performed By: #### I SABG #### [facility] [address] [place] [address] CT biopsyOrdered By: Imad As aad on 08-18-2023 Hematocrit (Bld) [Volume fraction] 49.0 % Normal 38.0-51.0 [facility] Comment on above: Performed By: #### I SABG #### [facility] [address] [place] [address] Capillary blood glucose ryan urement by glucometer (mass/volume)Ordered By: Imad Asaad on 08-18-2023 Glucose [Mass/Vol] 95 mg/dL Normal 70-105 [facility] Comment on above: Result Comment: PERF ORMED BY: [place] [address] PATHOLOGIST CORRIDOR REDEVELOPMENT MANAGER LIEN TAN M.D. Performed By: #### I SABG #### [address] ISTAT ABGon 08-18-2023 CO2 [Moles/Vol] 34 mmol/L High 23-29 [facility] Comment on above: Performed By: #### I SABG #### [address] ISTAT Base Excess 9 mmol/L High -2 TO 3 [facility] Comment on above: Performed By: #### I SABG #### [address] ISTAT Ionized Calcium 1.14 mol/L Normal 1.12-1.32 [facility] Comment on above: Performed By: #### I SABG #### [address] ISTAT PCO2 46.3 mm[Hg] Normal 35-51 [facility] Comment on above: Performed By: #### I SABG #### [address] ISTAT Ph 7.460 High 7.31-7.45 [facility] Comment on above: Performed By: #### I SABG #### [address] ISTAT PO2 36 mm[Hg] Low 80-105 [facility] Comment on above: Performed By: #### I SABG #### [address] Whole blood bicarbonate ryan urementOrdered By: Imkaren Johnson on 08-18-2023 HCO3 (Bld) [Moles/Vol] 32.9 mmol/L High 22.0-28.0 [facility] Comment on above: Performed By: #### I SABG #### [address] Whole blood ionized calcium measurement (moles/volume)Ordered By: Imad Asaad on 08-18-2023 Calcium.ionized (Bld) [Moles/Vol] 1140 mmol/L 1.12-1.32 [facility] Whole blood oxygen saturatio n measurementOrdered By: Imad Asaad on 08-18-2023 Oxygen saturation in Blood 72 % Low 95-98 [facility] Comment on above: Reference ranges ref lect baseline specimens only Result Comment: Refe rence ranges reflect baseline specimens only Performed By: #### I SABG #### [address] Whole blood pHOrdered By: Im ad Asaad on 08-18-2023 pH (Bld) 7.460 Units 7.31-7.45 [facility] Whole blood potassium measur ementOrdered By: Imad Asaad on 08-18-2023 Potassium [Moles/Vol] 2.5 mmol/L Off scale low 3.5-4.9 [facility] Comment on above: Performed By: #### I SABG #### [address] Whole blood sodium measureme ntOrdered By: Imad Asaad on 08-18-2023 Sodium [Moles/Vol] 139 mmol/L Normal 138-146 [facility] Comment on above: Performed By: #### I SABG #### [address] Alanine aminotransferase [En zymatic activity/volume] in Serum or PlasmaOrdered By: Imad Asaad on 07-23-2023 ALT [Catalytic activity/Vol] 30 U/L Normal 7-52 [facility] Comment on above: Performed By: #### C MP, CBC, LIPASE #### [place] [address] [place] Albumin [Mass/volume] in Ser um or Plasma by Bromocresol green (BCG) dye binding methoOrdered By: Imad Asaad on 07-23-2023 Albumin BCG dye [Mass/Vol] 4.4 g/dL 3.5-5.7 [facility] Alkaline phosphatase [Enzyma tic activity/volume] in Serum or PlasmaOrdered By: Imad Asaad on 07-23-2023 ALP [Catalytic activity/Vol] 87 U/L Normal 34-104 [facility] Comment on above: Performed By: #### C MP, CBC, LIPASE #### [address] Aspartate aminotransferase [ Enzymatic activity/volume] in Serum or PlasmaOrdered By: Imad Asaad on 07-23-2023 AST [Catalytic activity/Vol] 25 U/L Normal 13-39 [facility] Comment on above: Performed By: #### C MP, CBC, LIPASE #### [address] Automated basophil %Ordered By: Imad Asaad on 07-23-2023 Basophils/100 WBC (Bld) 0.7 % Normal . [facility] Comment on above: Performed By: #### C MP, CBC, LIPASE #### [address] Automated basophil countOrde red By: Imad Asaad on 07-23-2023 Basophils (Bld) [#/Vol] 0.1 10*3/uL Normal 0.0-0.2 [facility] Comment on above: Result Comment: PERF ORMED BY: [place] [address] PATHOLOGIST CORRIDOR REDEVELOPMENT MANAGER LIEN TAN M.D. Performed By: #### C MP, CBC, LIPASE #### [address] Automated blood monocyte cou ntOrdered By: Imad Asaad on 07-23-2023 Monocytes (Bld) [#/Vol] 0.6 10*3/uL Normal 0.0-0.8 [facility] Comment on above: Performed By: #### C MP, CBC, LIPASE #### [address] Automated eosinophil %Ordere d By: Imad Asaad on 07-23-2023 Eosinophils/100 WBC (Bld) 4.2 % Normal . [facility] Comment on above: Performed By: #### C MP, CBC, LIPASE #### [facility] [address] Automated eosinophil countOr dered By: Imad Asaad on 07-23-2023 Eosinophils (Bld) [#/Vol] 0.4 10*3/uL Normal 0.0-0.45 [facility] Comment on above: Performed By: #### C MP, CBC, LIPASE #### [facility] [address] Automated monocyte %Ordered By: Imad Asaad on 07-23-2023 Monocytes/100 WBC (Bld) 6.9 % Normal . [facility] Comment on above: Performed By: #### C MP, CBC, LIPASE #### [address] Automated neutrophil %Ordere d By: Imad Asaad on 07-23-2023 Neutrophils/100 WBC (Bld) 63.9 % Normal . [facility] Comment on above: Performed By: #### C MP, CBC, LIPASE #### [address] Bilirubin.total [Mass/volume ] in Serum or PlasmaOrdered By: Imad Asaad on 07-23-2023 Bilirubin [Mass/Vol] 0.7 mg/dL Normal 0.3-1.0 [facility] Comment on above: Performed By: #### C MP, CBC, LIPASE #### [address] Calcium [Mass/volume] in Ser um or PlasmaOrdered By: Imad Asaad on 07-23-2023 Calcium [Mass/Vol] 9.2 mg/dL Normal 8.6-10.3 [facility] Comment on above: Performed By: #### C MP, CBC, LIPASE #### [address] Carbon dioxide, total [Moles /volume] in Serum or PlasmaOrdered By: Imad Asaad on 07-23-2023 CO2 [Moles/Vol] 34.0 mmol/L High 21.0-31.0 [facility] Comment on above: Performed By: #### C MP, CBC, LIPASE #### [address] Chloride [Moles/volume] in S joon or PlasmaOrdered By: Imad Asaad on 07-23-2023 Chloride [Moles/Vol] 98 mmol/L Normal 98-107 [facility] Comment on above: Performed By: #### C MP, CBC, LIPASE #### [address] Complete Blood Count Auto Di ffon 07-23-2023 Mean Corpuscular HGB Conc 34.6 g/dL Normal 32.5-35.6 [facility] Comment on above: Performed By: #### C MP, CBC, LIPASE #### [address] NRBC% 0.0 /100{WBC} Normal 0-0.5 [facility] Comment on above: Performed By: #### C MP, CBC, LIPASE #### [address] Comprehensive Metabolic Pane félix 07-23-2023 Albumin [Mass/Vol] 4.4 g/dL Normal 3.5-5.7 [facility] Comment on above: Performed By: #### C MP, CBC, LIPASE #### [place] [address] [place] GFR/1.73 sq M.predicted MDRD (S/P/Bld) [Vol rate/Area] mL/min/{1.73_m2} Normal [facility] Comment on above: Performed By: #### C MP, CBC, LIPASE #### [address] Creatinine [Mass/volume] in Serum or PlasmaOrdered By: Imad Asaad on 07-23-2023 Creatinine [Mass/Vol] 0.73 mg/dL Normal 0.70-1.30 [facility] Comment on above: Performed By: #### C MP, CBC, LIPASE #### [facility] [address] Erythrocyte distribution wid th [Ratio] by Automated countOrdered By: Imad Asaad on 07-23-2023 Erythrocyte distribution width (RBC) [Ratio] 14.0 % Normal 12.0-14.8 [facility] Comment on above: Performed By: #### C MP, CBC, LIPASE #### [facility] [address] Erythrocytes [#/volume] in B lood by Automated countOrdered By: Imad Asaad on 07-23-2023 RBC (Bld) [#/Vol] 5.46 10*6/uL Normal 3.90-5.60 [facility] Comment on above: Performed By: #### C MP, CBC, LIPASE #### [address] Glucose [Mass/volume] in Ser um or PlasmaOrdered By: Imad Asaad on 07-23-2023 Glucose [Mass/Vol] 92 mg/dL Normal 70-100 [facility] Comment on above: ADA recommended refe rence rangeRandom Glucose Reference Range is dependent on time and content of last meal. Glucose of more than 200 mg/dL in a nonstressed, ambulatory subject supports the diagnosis of Diabetes Mellitus. Result Comment: [place] Glucose Reference Range is dependent on time and content of last meal. Glucose of more than 200 mg/dL in a nonstressed, ambulatory subject supports the diagnosis of Diabetes Mellitus. ADA recommended reference range Performed By: #### C MP, CBC, LIPASE #### [facility] [address] Hematocrit [Volume Fraction] of Blood by Automated countOrdered By: Imad Asaad on 07-23-2023 Hematocrit (Bld) [Volume fraction] 43.7 % Normal 38.8-50.0 [facility] Comment on above: Performed By: #### C MP, CBC, LIPASE #### [facility] [address] Hemoglobin [Mass/volume] in BloodOrdered By: Imad Asaad on 07-23-2023 Hemoglobin (Bld) [Mass/Vol] 15.1 g/dL Normal 13.0-17.0 [facility] Comment on above: Performed By: #### C MP, CBC, LIPASE #### [facility] [address] Leukocytes [#/volume] correc augusto for nucleated erythrocytes in Blood by Automated counOrdered By: Imad Asaad on 07-23-2023 WBC corrected for nucl RBC Auto (Bld) [#/Vol] 9.0 10*3/uL 4.1-10.5 [facility] Leukocytes [#/volume] in Blo od by Automated countOrdered By: Imad Asaad on 07-23-2023 WBC (Bld) [#/Vol] 9.0 10*3/uL Normal 4.1-10.5 [facility] Comment on above: Performed By: #### C MP, CBC, LIPASE #### [address] Lipase [Enzymatic activity/v olume] in Serum or PlasmaOrdered By: Imad Asaad on 07-23-2023 Lipase [Catalytic activity/Vol] 39.0 U/L Normal 11.0-82.0 [facility] Comment on above: Result Comment: PERF ORMED BY: [place] [address] PATHOLOGIST CORRIDOR REDEVELOPMENT MANAGER LIEN TAN M.D. Performed By: #### C MP, CBC, LIPASE #### [place] [address] [place] Lymphocytes [#/volume] in Bl ood by Automated countOrdered By: Imad Asaad on 07-23-2023 Lymphocytes (Bld) [#/Vol] 2.2 10*3/uL Normal 1.00-4.8 [facility] Comment on above: Performed By: #### C MP, CBC, LIPASE #### [facility] [address] [place] [address] Lymphocytes/100 leukocytes i n Blood by Automated countOrdered By: Imad Asaad on 07-23-2023 Lymphocytes/100 WBC (Bld) 24.3 % Normal . [facility] Comment on above: Performed By: #### C MP, CBC, LIPASE #### [facility] [address] [place] [address] MCH [Entitic mass] by Automa augusto countOrdered By: Imad Asaad on 07-23-2023 MCH (RBC) [Entitic mass] 27.7 pg Normal 27.5-35.2 [facility] Comment on above: Performed By: #### C MP, CBC, LIPASE #### [facility] [address] [place] [address] MCHC Auto (RBC) [Mass/Vol]Or dered By: Imad Asaad on 07-23-2023 MCHC (RBC) [Mass/Vol] 34.6 g/dL 32.5-35.6 [facility] MCV [Entitic volume] by Auto mated countOrdered By: Imad Asaad on 07-23-2023 MCV (RBC) [Entitic vol] 80.1 fL Low 83.5-101 [facility] Comment on above: Performed By: #### C MP, CBC, LIPASE #### [facility] [address] [place] [address] Neutrophils [#/volume] in Bl ood by Automated countOrdered By: Imad Asaad on 07-23-2023 Neutrophils (Bld) [#/Vol] 5.8 10*3/uL Normal 1.8-7.7 [facility] Comment on above: Performed By: #### C MP, CBC, LIPASE #### [facility] [address] [place] [address] No Panel InformationOrdered By: Imad Asaad on 07-23-2023 Estimated GFR (CKD-EPI) > 60.0 mL/Min [facility] Creatinine Clearance (Chem N/A [facility] Nucleated erythrocytes [Pres ence] in Blood by Automated countOrdered By: Imad Asaad on 07-23-2023 Nucleated RBC Auto Ql (Bld) 0.0 /100{WBC} 0-0.5 [facility] Platelet mean volume [Entiti c volume] in Blood by Automated countOrdered By: Imad Asaad on 07-23-2023 Platelet mean volume (Bld) [Entitic vol] 7.2 fL Normal 6.6-10.1 [facility] Comment on above: Performed By: #### C MP, CBC, LIPASE #### [address] Platelets [#/volume] in Bloo d by Automated countOrdered By: Imad Asaad on 07-23-2023 Platelets (Bld) [#/Vol] 353 10*3/uL Normal 150-450 [facility] Comment on above: Performed By: #### C MP, CBC, LIPASE #### [address] Potassium [Moles/volume] in Serum or PlasmaOrdered By: Imad Asaad on 07-23-2023 Potassium [Moles/Vol] 2.8 mmol/L Off scale low 3.5-5.1 [facility] Comment on above: Critical Result Call ed to and read back by: HALIMA CHAVEZ at: 07/23/2023 11:41:15 by:[id number] Result Comment: Crit ical Result Called to and read back by: HALIMA CHAVEZ at: 07/23/2023 11:41:15 by:[id number] Performed By: #### C MP, CBC, LIPASE #### [address] Protein [Mass/volume] in Ser um or PlasmaOrdered By: Imad Asaad on 07-23-2023 Protein [Mass/Vol] 7.3 g/dL Normal 6.4-8.9 [facility] Comment on above: Performed By: #### C MP, CBC, LIPASE #### [address] Serum globulin measurement b y calculation (mass/volume)Ordered By: Imad Asaad on 07-23-2023 Globulin (S) [Mass/Vol] 2.9 g/dL Normal [facility] Comment on above: Performed By: #### C MP, CBC, LIPASE #### [facility] [address] [place] [address] Serum or plasma albumin/glob ulin mass ratioOrdered By: Imad Asaad on 07-23-2023 Albumin/Globulin [Mass ratio] 1.5 {ratio} Normal [facility] Comment on above: Performed By: #### C MP, CBC, LIPASE #### [address] Serum or plasma anion gap de terminationOrdered By: Imad Asaad on 07-23-2023 Anion gap [Moles/Vol] 11.8 mmol/L Normal 6.0-15.0 [facility] Comment on above: Performed By: #### C MP, CBC, LIPASE #### [address] Sodium [Moles/volume] in Ser um or PlasmaOrdered By: Imad Asaad on 07-23-2023 Sodium [Moles/Vol] 141 mmol/L Normal 136-145 [facility] Comment on above: Performed By: #### C MP, CBC, LIPASE #### [address] US abdomen completeon 2023 US abdomen complete [facility] [place] [address] [place] [address] Ultrasound Report Signed Patient: Wood Horn MR#: [id number] : 1995 Acct:[id number] Age/Sex: 27 / M ADM Date: 07/23/23 Loc: Room: Type: [facility] Attending Dr: Carlos Johnson MD Ordering Provider: [...] Estuardo Saravia M.D.07/23/2023 10:53 AM Dictation Location: [place] [address] Tech: Marlee Mirley Transcribed By: [place] 07/23/23 1053 Dictated By: Estuardo Saravia II, MD 07/23/23 1047 Signed By: 07/23/23 1053 Normal [facility] Urea nitrogen [Mass/volume] in Serum or PlasmaOrdered By: Carlos Johnson on 07-23-2023 Urea nitrogen [Mass/Vol] 13 mg/dL Normal 7-25 [facility] Comment on above: Performed By: #### C MP, CBC, LIPASE #### [address] Magnesiumon 11-25-2022 Magnesium [Mass/Vol] 1.1 mg/dL [facility] [employer] Other Renal Function Panelon 11-25 Albumin [Mass/Vol] 3.9 g/dL [facility] [employer] Other Calcium [Mass/Vol] 8.8 mg/dL [facility] [employer] Other Chloride [Moles/Vol] 96 mmol/L [facility] [employer] Other CO2 [Moles/Vol] 32.9 mmol/L [facility] [employer] Other Creatinine [Mass/Vol] 0.83 mg/dL [facility] [employer] Other Glucose [Mass/Vol] 138 mg/dL [facility] [employer] Other Phosphate [Mass/Vol] 4.0 mg/dL [facility] [employer] Other Potassium [Moles/Vol] 2.4 mmol/L [facility] [employer] Other Sodium [Moles/Vol] 139 mmol/L [facility] [employer] Other Urea nitrogen [Mass/Vol] 13.0 mg/dL [facility] [employer] Other Renal Function Panel [facility] [employer] Other Renal Function Panel >60 [facility] [employer] Other GLYCOHEMOGLOBIN A1Con 2022 ADA RECOMMENDATION SEE BELOW Normal [facility] Comment on above: Result Comment: ADA RECOMMENDED LIMIT 4.0 - 6.0 ADA THERAPEUTIC TARGET < 7.0 ACTION SUGGESTED > 7.0 Performed By: #### A 1C #### [facility] [address] [place] [address] Dr. Jossue Centeno Glucose [Mass/Vol] 108 mg/dL Normal [facility] Comment on above: Performed By: #### A 1C #### [facility] [address] [place] [address] Dr. Jossue Centeno HbA1c (Bld) [Mass fraction] 5.4 % Normal 4.5-6.2 [facility] Comment on above: Performed By: #### A 1C #### [facility] [address] [place] [address] Dr. Jossue Centeno CBC AUTO DIFFon 01-27-2022 BASO # 0.1 103/ul Normal 0.0-0.1 [facility] Comment on above: Performed By: #### C BC #### [facility] [address] [place] [address] Dr. Jossue Centeno Basophils/100 WBC (Bld) 0.8 % Normal 0.2-2.0 [facility] Comment on above: Performed By: #### C BC #### [facility] [address] [place] [address] Dr. Jossue Centeno EO # 0.6 103/ul Normal 0.0-0.7 [facility] Comment on above: Performed By: #### C BC #### [facility] [address] [place] [address] Dr. Jossue Centeno Eosinophils/100 WBC (Bld) 5.8 % Normal 0.9-7.0 [facility] Comment on above: Performed By: #### C BC #### [facility] [address] [place] [address] Dr. Jossue Centeno Erythrocyte distribution width (RBC) [Ratio] 12.4 % Normal 11.0-15.0 [facility] Comment on above: Performed By: #### C BC #### [facility] [address] [place] [address] Dr. Jossue Centeno Hematocrit (Bld) [Volume fraction] 47.4 % Normal 42.0-54.0 [facility] Comment on above: Performed By: #### C BC #### [facility] [address] [place] [address] Dr. Jossue Centeno Hemoglobin (Bld) [Mass/Vol] 16.7 g/dL Normal 14.0-18.0 [facility] Comment on above: Performed By: #### C BC #### [facility] [address] [place] [address] Dr. Jossue Centeno IG # 0.02 10e3/ul Normal 0.00-0.03 [facility] Comment on above: Performed By: #### C BC #### [facility] [address] [place] [address] Dr. Jossue Centeno IG % 0.2 % Normal 0.0-0.5 [facility] Comment on above: Performed By: #### C BC #### [facility] [address] [place] [address] Dr. Jossue Centeno LYMPH # 2.2 103/ul Normal 1.2-3.8 [facility] Comment on above: Performed By: #### C BC #### [facility] [address] [place] [address] Dr. Jossue Centeno Lymphocytes/100 WBC (Bld) 23.1 % Normal 20.5-60.0 [facility] Comment on above: Performed By: #### C BC #### [facility] [address] [place] [address] Dr. Jossue Centeno MANUAL DIFF REQ NO Normal [facility] Comment on above: Performed By: #### C BC #### [facility] [address] [place] [address] Dr. Jossue Centeno MCH (RBC) [Entitic mass] 28.2 pg Normal 25.9-34.0 [facility] Comment on above: Performed By: #### C BC #### [facility] [address] [place] [address] Dr. Jossue Centeno MCHC (RBC) [Mass/Vol] 35.2 g/dL Normal 29.9-35.2 [facility] Comment on above: Performed By: #### C BC #### [facility] [address] [place] [address] Dr. Jossue Centeno MCV (RBC) [Entitic vol] 79.9 fL Critically low 80.0-94. 0 [facility] Comment on above: Performed By: #### C BC #### [facility] [address] [place] [address] Dr. Jossue Centeno MONO # 0.7 103/ul Normal 0.3-0.8 [facility] Comment on above: Performed By: #### C BC #### [facility] [address] [place] [address] Dr. Jossue Centeno Monocytes/100 WBC (Bld) 7.6 % Normal 1.7-12.0 [facility] Comment on above: Performed By: #### C BC #### [facility] [address] [place] [address] Dr. Jossue Centeno NEUT # 5.9 103/ul Normal 1.4-6.5 [facility] Comment on above: Performed By: #### C BC #### [facility] [address] [place] [address] Dr. Jossue Centeno Neutrophils/100 WBC (Bld) 62.5 % Normal 43.0-75.0 [facility] Comment on above: Performed By: #### C BC #### [facility] [address] [place] [address] Dr. Jossue Centeno Platelet mean volume (Bld) [Entitic vol] 8.5 fL Critically low 9.5-13.5 [facility] Comment on above: Performed By: #### C BC #### [facility] [address] [place] [address] Dr. Jossue Centeno PLT 335 103/ul Normal 150-450 [facility] Comment on above: Performed By: #### C BC #### [facility] [address] [place] [address] Dr. Jossue Centeno RBC 5.93 106/ul Normal 4.70-6.10 [facility] Comment on above: Performed By: #### C BC #### [facility] [address] [place] [address] Dr. Jossue Centeno WBC 9.5 103/ul Normal 4.0-11.0 [facility] Comment on above: Performed By: #### C BC #### [facility] [address] [place] [address] Dr. Jossue Centeno MAGNESIUMon 01-27-2022 Magnesium [Mass/Vol] 1.5 mg/dL Critically low 1.8-2.4 [facility] Comment on above: Performed By: #### K #### [facility] [address] [place] [address] Dr. Jossue Centeno PROF 14(COMP METB)on 022 Albumin [Mass/Vol] 4.1 g/dL Normal 3.4-5.0 [facility] Comment on above: Performed By: #### M G, CMP #### [facility] [address] [place] [address] Dr. Jossue Centeno Albumin/Globulin [Mass ratio] 1.0 {ratio} Normal [facility] Comment on above: Performed By: #### M G, CMP #### [facility] [address] [place] [address] Dr. Jossue Centeno ALP [Catalytic activity/Vol] 107 U/L Normal 46-116 [facility] Comment on above: Performed By: #### M G, CMP #### [facility] [address] [place] [address] Dr. Jossue Centeno ALT [Catalytic activity/Vol] 50 U/L Normal 16-63 [facility] Comment on above: Performed By: #### M G, CMP #### [facility] [address] [place] [address] Dr. Jossue Centeno Anion gap [Moles/Vol] 12.1 mmol/L Normal [facility] Comment on above: Performed By: #### M G, CMP #### [facility] [address] [place] [address] Dr. Jossue Centeno AST [Catalytic activity/Vol] 25 U/L Normal 15-37 [facility] Comment on above: Performed By: #### M G, CMP #### [facility] [address] [place] [address] Dr. Jossue Centeno Bilirubin [Mass/Vol] 0.6 mg/dL Normal 0.2-1.0 [facility] Comment on above: Performed By: #### M G, CMP #### [facility] [address] [place] [address] Dr. Jossue Centeno Calcium [Mass/Vol] 9.3 mg/dL Normal 8.5-10.1 [facility] Comment on above: Performed By: #### M G, CMP #### [facility] [address] [place] [address] Dr. Jossue Centeno Chloride [Moles/Vol] 97 mmol/L Critically low 98-107 [facility] Comment on above: Performed By: #### M G, CMP #### [facility] [address] [place] [address] Dr. Jossue Centeno CO2 [Moles/Vol] 32.1 mmol/L Critically high 21.0-32.0 [facility] Comment on above: Performed By: #### M G, CMP #### [facility] [address] [place] [address] Dr. Jossue Centeno Creatinine [Mass/Vol] 0.76 mg/dL Normal 0.70-1.30 [facility] Comment on above: Performed By: #### Isabell Luna, CMP #### [facility] [address] [place] [address] Dr. Jossue Centeno EGFR-AF ICELANDIC >60 Normal >=60 [facility] Comment on above: Performed By: #### M G, CMP #### [facility] [address] [place] [address] Dr. Jossue Centeno EGFR-NON AF ICELANDIC >60 Normal >=60 [facility] Comment on above: Performed By: #### Isabell Luna, CMP #### [facility] [address] [place] [address] Dr. Jossue Centeno Globulin (S) [Mass/Vol] 4.1 g/dL Normal [facility] Comment on above: Performed By: #### M G, CMP #### [facility] [address] [place] [address] Dr. Jossue Centeno Glucose [Mass/Vol] 92 mg/dL Normal 74-106 [facility] Comment on above: Performed By: #### M G, CMP #### [facility] [address] [place] [address] Dr. Jossue Centeno Potassium [Moles/Vol] 3.2 mmol/L Critically low 3.5-5.1 [facility] Comment on above: Performed By: #### M G, CMP #### [facility] [address] [place] [address] Dr. Jossue Centeno Protein [Mass/Vol] 8.2 g/dL Normal 6.4-8.2 [facility] Comment on above: Performed By: #### M G, CMP #### [facility] [address] [place] [address] Dr. Jossue Centeno Sodium [Moles/Vol] 138 mmol/L Normal 136-145 [facility] Comment on above: Performed By: #### M G, CMP #### [facility] [address] [place] [address] Dr. Jossue Centeno Urea nitrogen [Mass/Vol] 11.0 mg/dL Normal 7.0-18.0 [facility] Comment on above: Performed By: #### M G, CMP #### [facility] [address] [place] [address] Dr. Jossue Centeno Urea nitrogen/Creatinine [Mass ratio] 14.5 mg/mg Normal [facility] Comment on above: Performed By: #### M G, CMP #### [facility] [address] [place] [address] Dr. Jossue Centeno Office Visit (Cardiology)on 12-02-2021 Follow-up visit Diagnoses/Problems Assessed Atypical chest pain (786.59) (R07.89) Cardiac enzymes elevated (790.5) (R74.8) Hypokalemia (276.8) (E87.6) Hypomagnesemia (275.2) (E83.42) Class 1 obesity with body mass index (BMI) of 31.0 to 31.9 in adult (278.00,V85.31) (E66.9,Z68.31) Never a smoker Orders Atypical chest pain Echocardiogram; Status:Hold For - Scheduling,Retrospect pratik Authorization; Requested for:[id number]; Atypical chest pain, Cardiac enzymes elevated, Hypokalemia, Hypomagnesemia Cardiac Stress Test; Status:Hold For - Scheduling,Retrospect pratik Authorization; Requested for:[id number]; Class 1 obesity with body mass index (BMI) of 31.0 to 31.9 in adult Healthy Weight Tips; Status:Complete - Retrospective Authorization; Done: [id number] SocHx: Never a smoker Tobacco Use Screening; Status:Complete; Done: [id number] Tobacco Use Screening; Status:Complete; Done: [id number] Tobacco Use Screening; Status:Complete; Done: [id number] Patient Instructions By signing my name below, [...] negative for complaint. Vitals Vital Signs Recorded: [id number] 09:05AMRecorded: [id number] 09:04AM Dssemlue636, LUE, Fqcrrfa595, RUE, Sitting Zfgxmagaw52, LUE, Jtdzaas09, RUE, Sitting Heart Rate66, Apical Height5 ft 10 in Dpzugo068 lb BMI Fxbwjqfwip54.14 kg/m2 BSA Calculated2.16 Tobacco Useb) No PHQ-2 [...] 2+ bilate (more content not included)... Normal [facility] Tobacco Screening.on 022 Adult depression screening assessment [facility] Work Phone: Fall risk assessment c) Not medically indicated [facility] Work Phone: Tobacco use status CP b) [facility] Work Phone: POTASSIUMon 11-16-2021 Potassium [Moles/Vol] 3.8 mmol/L Normal 3.5-5.1 [facility] Comment on above: Performed By: #### K #### [facility] [address] [place] [address] Dr. Jossue Centeno POTASSIUMon 11-12-2021 Potassium [Moles/Vol] 3.7 mmol/L Normal 3.5-5.1 [facility] Comment on above: Performed By: #### K #### [facility] [address] [place] [address] Dr. Jossue Centeno HEMOGRAM AND PLATELon 2021 Hematocrit (Bld) [Volume fraction] 45.0 % Normal 42.0-54.0 [facility] Comment on above: Performed By: #### H H #### [facility] [address] [place] [address] Dr. Jossue Centeno Hemoglobin (Bld) [Mass/Vol] 15.1 g/dL Normal 14.0-18.0 [facility] Comment on above: Performed By: #### H H #### [facility] [address] [place] [address] Dr. Jossue Centeno MCH (RBC) [Entitic mass] 27.9 pg Normal 25.9-34.0 [facility] Comment on above: Performed By: #### H H #### [facility] [address] [place] [address] Dr. Jossue Centeno MCHC (RBC) [Mass/Vol] 33.6 g/dL Normal 29.9-35.2 [facility] Comment on above: Performed By: #### H H #### [facility] [address] [place] [address] Dr. Jossue Centeno MCV (RBC) [Entitic vol] 83.2 fL Normal 80.0-94.0 [facility] Comment on above: Performed By: #### H H #### [facility] [address] [place] [address] Dr. Jossue Centeno PLT 299 103/ul Normal 150-450 [facility] Comment on above: Performed By: #### H H #### [facility] [address] [address] [address] Jossue Centneo RBC 5.41 106/ul Normal 4.70-6.10 [facility] Comment on above: Performed By: #### H H #### [facility] [address] [place] [address] Dr. Jossue Centeno WBC 10.2 103/ul Normal 4.0-11.0 [facility] Comment on above: Performed By: #### H H #### [facility] [address] [place] [address] Dr. Jossue Centeno MAGNESIUMon 11-11-2021 Magnesium [Mass/Vol] 1.3 mg/dL Critically low 1.8-2.4 [facility] Comment on above: Performed By: #### K #### [facility] [address] [place] [address] Dr. Jossue Centeno RENAL FUNCTION PANELon 11-11 Albumin [Mass/Vol] 4.1 g/dL Normal 3.4-5.0 [facility] Comment on above: Performed By: #### K #### [facility] [address] [place] [address] Dr. Jossue Centeno Calcium [Mass/Vol] 9.4 mg/dL Normal 8.5-10.1 [facility] Comment on above: Performed By: #### K #### [facility] [address] [place] [address] Dr. Jossue Centeno Chloride [Moles/Vol] 102 mmol/L Normal 98-107 [facility] Comment on above: Performed By: #### K #### [facility] [address] [place] [address] Dr. Jossue Centeno CO2 [Moles/Vol] 30.7 mmol/L Normal 21.0-32.0 [facility] Comment on above: Performed By: #### K #### [facility] [address] [place] [address] Dr. Jossue Centeno Creatinine [Mass/Vol] 0.83 mg/dL Normal 0.70-1.30 [facility] Comment on above: Performed By: #### K #### [facility] [address] [address] [address] Jossue Centeno EGFR-AF ICELANDIC >60 Normal >=60 [facility] Comment on above: Performed By: #### K #### [facility] [address] [address] [address] Jossue Centeno EGFR-NON AF ICELANDIC >60 Normal >=60 [facility] Comment on above: Performed By: #### K #### [facility] [address] [address] [address] Jossue Centeno Glucose [Mass/Vol] 94 mg/dL Normal 74-106 [facility] Comment on above: Performed By: #### K #### [facility] [address] [place] [address] Dr. Jossue Centeno Phosphate [Mass/Vol] 2.4 mg/dL Critically low 2.6-4.7 [facility] Comment on above: Performed By: #### K #### [facility] [address] [place] [address] Dr. Jossue Centeno Potassium [Moles/Vol] 5.7 mmol/L Critically high 3.5-5.1 [facility] Comment on above: Performed By: #### K #### [facility] [address] [place] [address] Dr. Jossue Centeno Sodium [Moles/Vol] 139 mmol/L Normal 136-145 [facility] Comment on above: Performed By: #### K #### [facility] [address] [place] [address] Dr. Jossue Centeno Urea nitrogen [Mass/Vol] 13.0 mg/dL Normal 7.0-18.0 [facility] Comment on above: Performed By: #### K #### [facility] [address] [place] [address] Dr. Jossue Centeno CARDIAC ESTUARDO 3-6on 2 CK [Catalytic activity/Vol] 536 U/L Critically high 39-308 [facility] Comment on above: Performed By: #### K #### [facility] [address] [place] [address] Dr. Jossue Centeno CK.MB [Mass/Vol] 3.09 ng/mL Normal <=3.60 [facility] Comment on above: Performed By: #### K #### [facility] [address] [place] [address] Dr. Jossue Centeno HSTROP 179.4 pg/mL Critically [...] Performed By: #### K #### [facility] [address] [place] [address] Dr. Jossue Centeno CARDIAC ESTUARDO ADMITon 022 CK [Catalytic activity/Vol] 607 U/L Critically high 39-308 [facility] Comment on above: Performed By: #### B MARY QUEEN #### [facility] [address] [place] [address] Dr. Jossue Centeno CK.MB [Mass/Vol] 3.82 ng/mL Critically high <=3.60 [facility] Comment on above: Result Comment: TEST REPEATED. CRITICAL VALUE VERIFIED Performed By: #### B MARY QUEEN #### [facility] [address] [place] [address] Dr. Jossue Centeno HSTROP 187.8 pg/mL Critically [...] #### B BERNICE, CMADM #### [facility] [address] [place] [address] Dr. Jossue Centeno MELVI 100 ng/mL Critically high 16-96 [facility] Comment on above: Performed By: #### B MP, CMADM #### [facility] [address] [address] [address] Jossue Centeno CBC AUTO DIFFon 11-08-2021 BASO # 0.1 103/ul Normal 0.0-0.1 [facility] Comment on above: Performed By: #### K #### [facility] [address] [address] [address] Jossue Centeno Basophils/100 WBC (Bld) 0.5 % Normal 0.2-2.0 [facility] Comment on above: Performed By: #### K #### [facility] [address] [place] [address] Dr. Jossue Centeno EO # 0.2 103/ul Normal 0.0-0.7 [facility] Comment on above: Performed By: #### K #### [facility] [address] [place] [address] Dr. Jossue Centeno Eosinophils/100 WBC (Bld) 1.3 % Normal 0.9-7.0 [facility] Comment on above: Performed By: #### K #### [facility] [address] [place] [address] Dr. Jossue Centeno Erythrocyte distribution width (RBC) [Ratio] 12.6 % Normal 11.0-15.0 [facility] Comment on above: Performed By: #### K #### [facility] [address] [place] [address] Dr. Jossue Centeno Hematocrit (Bld) [Volume fraction] 41.4 % Critically low 42.0-54.0 [facility] Comment on above: Performed By: #### K #### [facility] [address] [place] [address] Dr. Jossue Centeno Hemoglobin (Bld) [Mass/Vol] 14.5 g/dL Normal 14.0-18.0 [facility] Comment on above: Performed By: #### K #### [facility] [address] [place] [address] Dr. Jossue Centeno IG # 0.05 10e3/ul Critically high 0.00-0.03 [facility] Comment on above: Performed By: #### K #### [facility] [address] [place] [address] Dr. Jossue Centeno IG % 0.4 % Normal 0.0-0.5 [facility] Comment on above: Performed By: #### K #### [facility] [address] [place] [address] Dr. Jossue Centeno LYMPH # 1.6 103/ul Normal 1.2-3.8 [facility] Comment on above: Performed By: #### K #### [facility] [address] [place] [address] Dr. Jossue Centeno Lymphocytes/100 WBC (Bld) 12.4 % Critically low 20.5-60.0 [facility] Comment on above: Performed By: #### K #### [facility] [address] [place] [address] Dr. Jossue Centeno MANUAL DIFF REQ NO Normal [facility] Comment on above: Performed By: #### K #### [facility] [address] [place] [address] Dr. Jossue Centeno MCH (RBC) [Entitic mass] 28.3 pg Normal 25.9-34.0 [facility] Comment on above: Performed By: #### K #### [facility] [address] [place] [address] Dr. Jossue Centeno MCHC (RBC) [Mass/Vol] 35.0 g/dL Normal 29.9-35.2 [facility] Comment on above: Performed By: #### K #### [facility] [address] [place] [address] Dr. Jossue Centeno MCV (RBC) [Entitic vol] 80.7 fL Normal 80.0-94.0 [facility] Comment on above: Performed By: #### K #### [facility] [address] [place] [address] Dr. Jossue Centeno MONO # 0.9 103/ul Critically high 0.3-0.8 [facility] Comment on above: Performed By: #### K #### [facility] [address] [place] [address] Dr. Jossue Centeno Monocytes/100 WBC (Bld) 6.9 % Normal 1.7-12.0 [facility] Comment on above: Performed By: #### K #### [facility] [address] [place] [address] Dr. Jossue Centeno NEUT # 10.3 103/ul Critically high 1.4-6.5 [facility] Comment on above: Performed By: #### K #### [facility] [address] [place] [address] Dr. Jossue Centeno Neutrophils/100 WBC (Bld) 78.5 % Critically high 43.0-75.0 [facility] Comment on above: Performed By: #### K #### [facility] [address] [place] [address] Dr. Jossue Centeno Platelet mean volume (Bld) [Entitic vol] 9.5 fL Normal 9.5-13.5 [facility] Comment on above: Performed By: #### K #### [facility] [address] [place] [address] Dr. Jossue Centeno PLT 306 103/ul Normal 150-450 [facility] Comment on above: Performed By: #### K #### [facility] [address] [place] [address] Dr. Jossue Centeno RBC 5.13 106/ul Normal 4.70-6.10 [facility] Comment on above: Performed By: #### K #### [facility] [address] [place] [address] Dr. Jossue Centeno WBC 13.1 103/ul Critically high 4.0-11.0 [facility] Comment on above: Performed By: #### K #### [facility] [address] [place] [address] Dr. Jossue Centeno LIVER PROFILEon 11-08-2021 Albumin [Mass/Vol] 3.8 g/dL Normal 3.4-5.0 [facility] Comment on above: Performed By: #### L BOO #### [facility] [address] [address] [address] Jossue Centeno Albumin/Globulin [Mass ratio] 1.1 {ratio} Normal [facility] Comment on above: Performed By: #### L IVER #### [facility] [address] [address] [address] Jossue Centeno ALP [Catalytic activity/Vol] 91 U/L Normal 46-116 [facility] Comment on above: Performed By: #### L IVER #### [facility] [address] [address] [address] Jossue Centeno ALT [Catalytic activity/Vol] 69 U/L Critically high 16-63 [facility] Comment on above: Performed By: #### L IVER #### [facility] [address] [place] [address] Dr. Jossue Centeno AST [Catalytic activity/Vol] 40 U/L Critically high 15-37 [facility] Comment on above: Performed By: #### L IVER #### [facility] [facility] [address] [address] [address] Jossue Centeno BILI, CONJUGATED 0.1 mg/dL Normal 0.0-0.2 [facility] Comment on above: Performed By: #### L IVER #### [facility] [address] [place] [address] Dr. Jossue Centeno Bilirubin [Mass/Vol] 0.6 mg/dL Normal 0.2-1.0 [facility] Comment on above: Performed By: #### L IVER #### [facility] [address] [address] [address] Jossue Centeno Globulin (S) [Mass/Vol] 3.4 g/dL Normal T [facility] Comment on above: Performed By: #### L IVER #### [facility] [address] [address] [address] Jossue Centeno Protein [Mass/Vol] 7.2 g/dL Normal 6.4-8.2 [facility] Comment on above: Performed By: #### L IVER #### [facility] [address] [address] [address] Jossue Centeno PROF CHEM 8 (BAS METB)on Anion gap [Moles/Vol] 10.3 mmol/L Normal Th [facility] Comment on above: Performed By: #### B BERNICE, CMADM #### [facility] [address] [address] [address] Jossue Centeno Calcium [Mass/Vol] 8.9 mg/dL Normal 8.5-10.1 [facility] Comment on above: Performed By: #### B BERNICE, CMADM #### [facility] [address] [address] [address] Jossue Centeno Chloride [Moles/Vol] 97 mmol/L Critically low 98-107 [facility] Comment on above: Performed By: #### B BERNICE, CMADM #### [facility] [address] [place] [address] Dr. Jossue Centeno CO2 [Moles/Vol] 34.0 mmol/L Critically high 21.0-32.0 [facility] Comment on above: Performed By: #### B BERNICE, CMADM #### [facility] [address] [place] [address] Dr. Jossue Centeno Creatinine [Mass/Vol] 0.89 mg/dL Normal 0.70-1.30 [facility] Comment on above: Performed By: #### B BERNICE, CMADM #### [facility] [address] [place] [address] Dr. Jossue Centeno EGFR-AF ICELANDIC >60 Normal >=60 [facility] Comment on above: Performed By: #### B BERNICE, CMADM #### [facility] [address] [place] [address] Dr. Jossue Centeno EGFR-NON AF ICELANDIC >60 Normal >=60 [facility] Comment on above: Performed By: #### B BERNICE, CMADM #### [facility] [address] [place] [address] Dr. Jossue Centeno Glucose [Mass/Vol] 98 mg/dL Normal 74-106 [facility] Comment on above: Performed By: #### B BERNICE, CMADM #### [facility] [address] [address] [address] Jossue Centeno Potassium [Moles/Vol] 2.4 mmol/L Critically low 3.5-5.1 [facility] Comment on above: Result Comment: TEST REPEATED. CRITICAL VALUE VERIFIED Performed By: #### B BERNICE, JIDM #### [facility] [address] [address] [address] Jossue Centeno Sodium [Moles/Vol] 139 mmol/L Normal 136-145 [facility] Comment on above: Performed By: #### B BERNICE, MARY #### [facility] [address] [address] [address] Jossue Centeno Urea nitrogen [Mass/Vol] 14.0 mg/dL Normal 7.0-18.0 [facility] Comment on above: Performed By: #### B BERNICE, MARY #### [facility] [address] [address] [address] Jossue Centeno Urea nitrogen/Creatinine [Mass ratio] 15.7 mg/mg Normal [facility] Comment on above: Performed By: #### B BERNICE, JIDM #### [facility] [address] [address] [address] Jossue Centeno XR CHEST 2 Von [...] Date: 2021-11-08 20:44 Normal The [facility] BASIC METABOLIC PANELon -3 Calcium 10.4 mg/dL High 8.6-10.3 [facility] Comment on above: Performed By: #### 1 0070, [id number] ####[facility] [place] [address], [facility] Chloride 99 mmol/L Normal 98-107 [facility] Comment on above: Performed By: #### 1 69, 50556 ####[facility] [place] [address], [facility] CO2 29 mmol/L Normal 21-31 [facility] Comment on above: Performed By: #### 1 69, [id number] ####[facility] [place] [address], [facility] Creatinine 0.82 mg/dL Normal 0.70-1.30 [facility] Comment on above: Performed By: #### 1 69, [id number] ####[address] [address] [place] [address], [facility] eGFR (black) mL/min/{1.73_m2} Normal >60 [facility] Comment on above: Performed By: #### 1 69, 05823 ####[facility] [place] [address], [facility] eGFR (non-black) mL/min/{1.73_m2} Normal >60 Th e [facility] Comment on above: Performed By: #### 1 69, 00143 ####[facility] [place] [address], [facility] Glucose mass conc 84 mg/dL Normal 70-100 [facility] Comment on above: Performed By: #### 1 69, [id number] ####[facility] [place] [address], [facility] Potassium molar conc 4.5 mmol/L Normal 3.5-5.1 [facility] Comment on above: Performed By: #### 1 69, 20188 ####[facility] [place] [address], [facility] Sodium 136 mmol/L Normal 136-145 [facility] Comment on above: Performed By: #### 1 69, 34354 ####[facility] [place] [address], [facility] Urea nitrogen 14 mg/dL Normal 7- The [facility] Comment on above: Performed By: #### 1 69, 44706 ####[facility] [place] [address], [facility] MAGNESIUM BLOODon 06-07-2017 Magnesium 1.6 mg/dL Low 1.9-2.7 [facility] Comment on above: Performed By: #### 1 69, 27945 ####[facility] [facility].[address] Vital Signs Date Time Vital Sign Value Performing Clinician Faci lity 09-27-2024 15:40-0400 Body height 177.8 cm [facility] 09-27-2024 15:40-0400 Body mass index (BMI) [Ratio] 35.2 kg/m2 [facility] 09-27-2024 15:40-0400 Body temperature 98.2 [degF] [facility] 09-27-2024 15:40-0400 Body weight 111.35 kg [facility] 09-27-2024 15:40-0400 Diastolic blood pressure 81 mm[Hg] [facility] 09-27-2024 15:40-0400 Heart rate 80 /min [facility] 09-27-2024 15:40-0400 Respiratory rate 16 /min [facility] 09-27-2024 15:40-0400 SaO2% (BldA) [Mass fraction] 97 % [facility] 09-27-2024 15:40-0400 Systolic blood pressure 121 mm[Hg] [facility] 12-01-2023 13:21-0400 Body height 177.8 cm [facility] 12-01-2023 13:21-0400 Body mass index (BMI) [Ratio] 34.4 kg/m2 [facility] 12-01-2023 13:21-0400 Body temperature 97.3 [degF] [facility] 12-01-2023 13:21-0400 Body weight 109.08 kg [facility] 12-01-2023 13:21-0400 Diastolic blood pressure 70 mm[Hg] [facility] 12-01-2023 13:21-0400 Heart rate 88 /min [facility] 12-01-2023 13:21-0400 Respiratory rate 16 /min [facility] 12-01-2023 13:21-0400 SaO2% (BldA) [Mass fraction] 97 % [facility] 12-01-2023 13:21-0400 Systolic blood pressure 110 mm[Hg] [facility] 10-06-2023 15:53-0400 Body height 177.8 cm MD Shaikh Alvarez Work Phone: [facility] 10-06-2023 15:53-0400 Body mass index (BMI) [Ratio] 34.9 kg/m2 MD Shaikh Alvarez Work Phone: [facility] 10-06-2023 15:53-0400 Body temperature 98.4 [degF] MD Shaikh Alvarez Work Phone: [facility] 10-06-2023 15:53-0400 Body weight 110.39 kg MD Shaikh Alvarez Work Phone: [facility] 10-06-2023 15:53-0400 Diastolic blood pressure 80 mm[Hg] MD Shaikh Alvarez Work Phone: [facility] 10-06-2023 15:53-0400 Heart rate 82 /min MD Shaikh Alvarez Work Phone: [facility] 10-06-2023 15:53-0400 Respiratory rate 16 /min MD Shaikh Alvarez Work Phone: [facility] 10-06-2023 15:53-0400 SaO2% (BldA) [Mass fraction] 98 % MD Shaikh Alvarez Work Phone: [facility] 10-06-2023 15:53-0400 Systolic blood pressure 119 mm[Hg] MD Shaikh Alvarez Work Phone: [facility] 09-01-2023 14:39-0400 Diastolic blood pressure 67 mm[Hg] MD Shaikh Alvarez Work Phone: [facility] 09-01-2023 14:39-0400 Heart rate 81 /min MD Shaikh Alvarez Work Phone: [facility] 09-01-2023 14:39-0400 Respiratory rate 16 /min MD Shaikh Alvarez Work Phone: [facility] 09-01-2023 14:39-0400 SaO2% (BldA) [Mass fraction] 96 % MD Shaikh Alvarez Work Phone: [facility] 09-01-2023 14:39-0400 Systolic blood pressure 116 mm[Hg] MD Shaikh Alvarez Work Phone: [facility] 09-01-2023 13:05-0400 Body height 177.8 cm MD Shaikh Alvarez Work Phone: [facility] 09-01-2023 13:05-0400 Body temperature 98.6 [degF] MD Shaikh Alvarez Work Phone: [facility] 09-01-2023 13:05-0400 Body weight 104.3 kg MD Shaikh Alvarez Work Phone: [facility] 08-18-2023 13:24-0400 Body height 172.72 cm MD Shaikh Alvarez Work Phone: [facility] 08-18-2023 13:24-0400 Body weight 104.32 kg MD Shaikh Alvarez Work Phone: [facility] 08-18-2023 13:24-0400 Diastolic blood pressure 87 mm[Hg] MD Shaikh Alvarez Work Phone: [facility] 08-18-2023 13:24-0400 Heart rate 99 /min MD Shaikh Alvarez Work Phone: [facility] 08-18-2023 13:24-0400 Respiratory rate 16 /min MD Shaikh Alvarez Work Phone: [facility] 08-18-2023 13:24-0400 SaO2% (BldA) [Mass fraction] 97 % MD Shaikh Alvarez Work Phone: [facility] 08-18-2023 13:24-0400 Systolic blood pressure 128 mm[Hg] MD Shaikh Alvarez Work Phone: [facility] 07-18-2023 13:02-0400 Body height 175.26 cm MD Shaikh Alvarez Work Phone: [facility] 07-18-2023 13:02-0400 Body mass index (BMI) [Ratio] 34.8 kg/m2 MD Shaikh Alvarez Work Phone: [facility] 07-18-2023 13:02-0400 Body weight 107.04 kg MD Shaikh Alvarez Work Phone: [facility] 07-18-2023 13:02-0400 Diastolic blood pressure 90 mm[Hg] MD Shaikh Alvarez Work Phone: [facility] 07-18-2023 13:02-0400 Heart rate 79 /min MD Shaikh Alvarez Work Phone: [facility] 07-18-2023 13:02-0400 Systolic blood pressure 129 mm[Hg] MD Shaikh Alvarez Work Phone: [facility] 06-16-2023 15:56-0500 Body height 172.7 cm Shaikh Kim CALL Work Phone: [facility] 06-16-2023 15:56-0500 Body mass index (BMI) [Ratio] 35.73 kg/m2 Shaikh Kim CALL Work Phone: [facility] 06-16-2023 15:56-0500 Body temperature 97.9 [degF] Shaikh Kim CALL Work Phone: [facility] 06-16-2023 15:56-0500 Body weight 106.59 kg Shaikh Kim CALL Work Phone: [facility] 06-16-2023 15:56-0500 Diastolic blood pressure 76 mm[Hg] Shaikh Kim CALL Work Phone: [facility] 06-16-2023 15:56-0500 Heart rate 72 /min Shaikh Kim CALL Work Phone: [facility] 06-16-2023 15:56-0500 SaO2% (BldA) [Mass fraction] 96 % Shaikh Kim CALL Work Phone: [facility] 06-16-2023 15:56-0500 Systolic blood pressure 110 mm[Hg] Shaikh Kim CALL Work Phone: [facility] 11-25-2022 15:40-0400 Body height 175.26 cm Marcelino Andra Other [employer] Other 11-25-2022 15:40-0400 Body mass index (BMI) [Ratio] 34.23 kg/m2 Marcelino Andra Other [employer] Other 11-25-2022 15:40-0400 Body temperature 98 [degF] Marcelino Andra Other [employer] Other 11-25-2022 15:40-0400 Body weight 105.14 kg Marcelino Andra Other [employer] Other 11-25-2022 15:40-0400 Diastolic blood pressure 81 mm[Hg] Marcelino Andra Other [employer] Other 11-25-2022 15:40-0400 Respiratory rate 18 /min Marcelino Andra Other [employer] Other 11-25-2022 15:40-0400 SaO2% (BldA) [Mass fraction] 98 % Marcelino Andra Other [employer] Other 11-25-2022 15:40-0400 Systolic blood pressure 134 mm[Hg] Marcelino Andra Other [employer] Other 12-02-2021 09:05-0400 Diastolic blood pressure 88 mm[Hg] Provider AMAProvider Work Phone: [phone] [place] [address] Work Phone: 12-02-2021 09:05-0400 Systolic blood pressure 118 mm[Hg] Provider AMAProvider Work Phone: [facility] Work Phone: 12-02-2021 09:04-0400 Body height 177.8 cm Provider AMAProvider Work Phone: [facility] Work Phone: 12-02-2021 09:04-0400 Body mass index (BMI) [Ratio] 31.14 kg/m2 Provider AMAProvider Work Phone: [facility] Work Phone: 12-02-2021 09:04-0400 Body surface area Derived from formula 2.16 m2 Provider AMAProvider Work Phone: [facility] Work Phone: 12-02-2021 09:04-0400 Body weight 98.43 kg Provider AMAProvider Work Phone: [facility] Work Phone: 12-02-2021 09:04-0400 Diastolic blood pressure 86 mm[Hg] Provider AMAProvider Work Phone: [facility] Work Phone: 12-02-2021 09:04-0400 Heart rate 66 /min Provider AMAProvider Work Phone: [facility] Work Phone: 12-02-2021 09:04-0400 Systolic blood pressure 122 mm[Hg] Provider AMAProvider Work Phone: [facility] Work Phone: 03-25-2021 12:20-0500 Body height 175.26 cm Marcelino Andra Other [employer] Other 03-25-2021 12:20-0500 Body mass index (BMI) [Ratio] 30.59 kg/m2 Marcelino Andra Other [employer] Other 03-25-2021 12:20-0500 Body temperature 99.1 [degF] Marcelino Andra Other [employer] Other 03-25-2021 12:20-0500 Body weight 93.99 kg Marcelino Andra Other [employer] Other 03-25-2021 12:20-0500 Diastolic blood pressure 82 mm[Hg] Marcelino Andra Other [employer] Other 03-25-2021 12:20-0500 Respiratory rate 18 /min Marcelino Andra Other [employer] Other 03-25-2021 12:20-0500 SaO2% (BldA) [Mass fraction] 96 % Marcelino Andra Other [employer] Other 03-25-2021 12:20-0500 Systolic blood pressure 125 mm[Hg] Marcelino Andra Other [employer] Other Encounters Encounter Date Encounter Type Care Provider Facility Start: 09-27-2024 End: 09-27-2024 ambulatory [facility] Work Phone: Start: 09-27-2024 End: 09-27-2024 Patient encounter procedure [facility] Work Phone: Start: 09-27-2024 Non-patient / Non-visit [facility] [employer] Work Phone: Start: 07-30-2024 End: 07-30-2024 ambulatory SHAHANASUNDAR ROE Not Available Start: 03-31-2024 End: 03-31-2024 ambulatory Velasquez Kim Facility:[facility] Start: 03-20-2024 End: 03-20-2024 Clinisync Result Encounter Generic External Data Provider [facility] External Department Unsolicited Start: 03-20-2024 End: 03-20-2024 Clinisync Result Encounter Generic External Data Provider [facility] External Department Unsolicited Start: 12-01-2023 End: 12-01-2023 ambulatory [facility] Work Phone: Start: 12-01-2023 End: 12-01-2023 Patient encounter procedure [facility] Phys[facility] Ne[facility] Work Phone: Start: 11-21-2023 Non-patient / Non-visit [facility] Work Phone: Start: 11-19-2023 Non-patient / Non-visit [facility] Work Phone: Start: 10-26-2023 Non-patient / Non-visit [facility] Work Phone: Start: 10-06-2023 End: 10-06-2023 ambulatory MD Shaikh Alvarez Work Phone: [facility] Work Phone: Start: 10-06-2023 End: 10-06-2023 Patient encounter procedure MD Shaikh Alvarez Work Phone: [facility] Nephrology Work Phone: Start: 10-06-2023 Non-patient / Non-visit MD Shaikh Alvarez Work Phone: [facility] Physician [facility] Work Phone: Start: 09-01-2023 Non-patient / Non-visit MD Shaikh Alvarez Work Phone: [facility] Work Phone: Start: 09-01-2023 End: 09-01-2023 Admission to same day surgery center MD Shaikh Alvarez Work Phone: [facility] Work Phone: Start: 09-01-2023 End: 09-01-2023 ambulatory MD Shaikh Alvarez Work Phone: [facility] Work Phone: Start: 08-18-2023 End: 08-18-2023 Admission to same day surgery center MD Shaikh Alvarez Work Phone: [facility] Work Phone: Start: 08-18-2023 End: 08-18-2023 ambulatory MD Shaikh Alvarez Work Phone: [facility] Work Phone: Start: 08-04-2023 End: 08-04-2023 ambulatory OSVALDO LEE Not Available Start: 08-02-2023 End: 08-02-2023 ambulatory JEREMIAH MERRITT Not Available Start: 07-23-2023 End: 07-23-2023 Patient encounter procedure MD Shaikh Alvarez Work Phone: [facility] [place] Work Phone: Start: 07-23-2023 End: 07-23-2023 ambulatory MD Shaikh Alvarez Work Phone: [facility] Work Phone: Start: 07-18-2023 End: 07-18-2023 Patient encounter procedure MD Shaikh Alvarez Work Phone: [facility] Work Phone: Start: 06-22-2023 Orders Only Shaikh Kim CALL Work Phone: [facility] Comment on above: Infraspinatus strain , right, subsequent encounter (Primary Dx) Start: 06-16-2023 End: 06-16-2023 Office outpatient visit 25 minutes Shaikh Kim CALL Work Phone: [facility] Comment on above: Acute pain of right shoulder (Primary Dx) Start: 04-11-2023 End: 04-11-2023 ambulatory Imad Asaad Other [employer] Other Start: 04-11-2023 Encounter by [facility] link Imad Asaad [facility] Start: 11-25-2022 End: 11-25-2022 ambulatory Marcelino Andra Other [employer] Other Start: 11-25-2022 Office outpatient visit 15 minutes Marcelino Andra [facility] Start: 11-25-2022 Telephone encounter Marcelino Andra [facility] Start: 08-27-2022 End: 08-27-2022 ambulatory Marcelino Andra Other [employer] Other Start: 08-27-2022 Telephone encounter Marcelino Andra [facility] Start: 06-23-2022 End: 06-24-2022 ambulatory SHAIKH Sawyer ALVAREZ Facility:[facility] Start: 01-27-2022 End: 01-28-2022 ambulatory NIDA CHUCK Facility:[facility] Start: 12-02-2021 Office outpatient ne w 45 minutes Provider AMAProvider Work Phone: [facility] Work Phone: Start: 11-16-2021 End: 11-17-2021 ambulatory MARCELINO ANDRA Facility:[facility] Start: 11-12-2021 End: 11-13-2021 ambulatory MARCELINO ANDRA Facility:[facility] Start: 11-11-2021 End: 11-12-2021 ambulatory MARCELINO ANDRA [facility] [employer] Other Start: 11-11-2021 Telephone encounter Marcelino Andra [facility] Start: 11-10-2021 End: 11-10-2021 ambulatory Marcelino Andra Other [employer] Other Start: 11-10-2021 Telephone encounter Marcelino Andra [facility] Start: 11-08-2021 End: 11-09-2021 ambulatory NIDA CHUCK Facility:[facility] Start: 10-13-2021 End: 10-13-2021 ambulatory NIDA CHUCK Facility:[facility] Start: 10-12-2021 End: 10-12-2021 ambulatory Nida A Chuck JAILOR-C Facility:[facility] Start: 09-23-2021 ambulatory MARCELINO ANDRA Facility:[facility] Start: 03-25-2021 End: 03-25-2021 ambulatory Marcelino Andra Other [employer] Other Start: 03-25-2021 Office outpatient visit 15 minutes Marcelino Andra [facility] Start: 03-24-2021 End: 03-24-2021 ambulatory Marcelino Perdomodir Other [employer] Other Start: 03-24-2021 Telephone encounter Marcelino Perdomodir [facility] Start: 07-22-2017 End: 07-23-2017 Ambulatory MARBELLA TEMPLE Facility:[facility] Start: 06-07-2017 End: 06-08-2017 Ambulatory NICOLETTE DE DIOS Facility:[facility] Procedures Date Procedure Procedure [...] Vacc ine (#1) [facility] Start: 09-01-2023 [facility] Start: 08-18-2023 [facility] Start: 06-27-2023 End: 06-27-2023 Patient encounter procedure 06/27/2023 9:45 AM EST Office Visit [facility] [address] [place] [id number] Shaikh Alvarez MD [address] [place] [id number] [facility] Start: 06-23-2023 End: 06-23-2023 ambulatory 06/23/2023 1:00 PM EST Evaluation [facility] [address] [facility] [address] [place] [id number] Edmundo Reina, PT [address] [place] [facility] [place] [address] [facility] Start: 06-16-2023 End: 06-16-2024 MR Shoulder - right WO contrast MR shoulder right wo IV contrast Imaging Routine Acute pain of right shoulder Expected: 06/16/2023, Expires: 06/16/2024 [facility] Work Phone: Comment on above: Expected: 06/16/2023 , Expires: 06/16/2024 Start: 01-07-2023 Influenza vaccination Influenza Vacc ine (#1) [facility] Start: 01-05-2022 STRESS NUC, Provider : FRANCISCO [facility] NUCLEAR 01,[id number], Status: Pen, Time: 12:00 PM STRESS NUC, Provider: FRANCISCO [facility] NUCLEAR 01,[id number], Status: Pen, Time: 12:00 PM [facility] Work Phone: Start: 01-05-2022 ECHO, Provider: FRANCISCO [facility] ULTRASOUND 01,[id number], Status: Pen, Time: 9:45 AM ECHO, Provider: FRANCISCO [facility] ULTRASOUND 01,[id number], Status: Pen, Time: 9:45 AM [facility] Work Phone: Patient Education Gastric Ulcer (DC) [facility] Work Phone: Renal function 1999 panel - Serum or Plasma [facility] Renal function 1999 panel - Serum or Plasma [facility] Renal function 1999 panel - Serum or Plasma [facility] Immunizations Immunization Date Immunization Notes Care Provider Fa cility 10-04-2020 Pfizer-BioNTech COVID-19 Vacc 30 MCG/0.3ML Intramuscular Suspension Provider AMAProvider Work Phone: [facility] Work Phone: 09-07-2020 Pfizer-BioNTech COVID-19 Vacc 30 MCG/0.3ML Intramuscular Suspension Provider AMAProvider Work Phone: [phone] [place] [address] Work Phone: 12-14-2000 diphtheria, tetanus toxoids and acellular pertussis vaccine, unspecified formulation Provider AMAProvider Work Phone: [phone] [place] [address] Work Phone: 12-14-2000 measles, mumps and rubella virus vaccine Provider AMAProvider Work Phone: [phone] [place] [address] Work Phone: 12-14-2000 poliovirus vaccine, inactivated Provider AMAProvider Work Phone: [phone] [place] [address] Work Phone: 02-06-1997 diphtheria, tetanus toxoids and acellular pertussis vaccine, unspecified formulation Provider AMAProvider Work Phone: [phone] [place] [address] Work Phone: 02-06-1997 haemophilus influenz ae type b vaccine, conjugate unspecified formulation Provider AMAPrJalbumder Work Phone: [phone] [place] [address] Work Phone: 02-06-1997 measles, mumps and rubella virus vaccine Provider AMAProvider Work Phone: [phone] [place] [address] Work Phone: 10-08-1996 diphtheria, tetanus toxoids and acellular pertussis vaccine, unspecified formulation Provider AMAPrJalbumder Work Phone: [phone] [place] [address] Work Phone: 10-08-1996 haemophilus influenz ae type b vaccine, conjugate unspecified formulation Provider AMAProvider Work Phone: [phone] [place] [address] Work Phone: 10-08-1996 hepatitis B vaccine, pediatric or pediatric/adolescent dosage Provider [facility]MA[facility] Work Phone: [phone] [place] [address] Work Phone: 10-08-1996 trivalent poliovirus vaccine, live, oral Provider [facility] Work Phone: [phone] [place] [address] Work Phone: 04-02-1996 DTP-Haemophilus influenzae type b conjugate vaccine Provider AMAProvider Work Phone: [facility] Work Phone: 04-02-1996 trivalent poliovirus vaccine, live, oral Provider AMAProvider Work Phone: [facility] Work Phone: 1995 DTP-Haemophilus influenzae type b conjugate vaccine Provider AMAProvider Work Phone: [facility] Work Phone: 1995 hepatitis B vaccine, pediatric or pediatric/adolescent dosage Provider AMAProvider Work Phone: [facility] Work Phone: 1995 trivalent poliovirus vaccine, live, oral Provider AMAProvider Work Phone: [facility] Work Phone: 1995 hepatitis B vaccine, pediatric or pediatric/adolescent dosage Provider AMAProvider Work Phone: [facility] Work Phone: Payers Date Payer Category Payer Self-pay [id number] 2023 Private Health Insurance [facility] [id number] 2023 Private Health Insurance [id number] 2022 Private Health Insurance [facility] [id number] 2021 Unknown [id number] 2.16. [id number] 1995 Unknown [id number] 2.16.84 0.1.436194.3.579.2.593 1995 Unknown [id number] 2.16.84 0.1.226881.3.579.2.593 1995 Unknown [id number] 2.16.84 0.1.097019.3.579.2.593 1995 Unknown [id number] 2.16.84 0.1.913489.3.579.2.593 1995 Unknown [id number] 2.16.84 0.1.141161.3.579.2.593 1995 Unknown [id number] 2.16.84 0.1.084530.3.579.2.593 1995 Unknown [id number] 2.16.84 0.1.144198.3.579.2.593 1995 Unknown [id number] 2.16.84 0.1.129665.3.579.2.593 1995 Unknown [id number] 2.16.84 0.1.647128.3.579.2.718 1995 Unknown [id number] 2.16.84 0.1.300272.3.579.2.1259 1995 Unknown [id number] 2.16.84 0.1.407244.3.579.2.1259 1995 Unknown [id number] 2.16.84 0.1.548938.3.579.2.1259 1959 Private Health Insurance [id number] 1959 Private Health Insurance [id number] Self-pay [id number] 1959 Unknown [id number] Unknown [id number] Unknown Unknown [id number] 2.16.8 40.1.833930.3.579.2.531 Unknown [id number] 2.16.8 40.1.124952.3.579.2.531 Unknown [id number] 2.16.8 40.1.756434.3.579.2.531 Unknown [id number] 2.16.8 40.1.085747.3.579.2.531 Social History Date Type Detail Facility Unknown if ever smoked [employer] Other Start: 06-16-2023 Sex Assigned At [facility] Other Start: 06-16-2023 No illicit drug use No illicit drug use [facility] Work Phone: Comment on above: 1 can of pop daily.; Start: 06-16-2023 End: 10-06-2023 Tobacco smoking status NHIS Never smoked tobacco [facility] Start: 06-16-2023 End: 06-20-2023 Alcohol intake Lifetime non-drinker (finding) [facility] Start: 1995 Sex Assigned At Not on file [facility] Start: 1995 Sex Assigned At Male [facility] Start: 09-27-2024 Sex Male (finding) [facility] NEGATED: Highlighted rowStart: NINF History of tobacco use Passive smoker [facility] Goals Date Patient Goal Desired Activity /State Clinical Notes 03-25-2021 to 09-01-2023 Shaikh Kim MD - 06/16/2023 4:38 PM ESTSalyson Alvarez MD - 06/16/2023 3:45 PM EST Note Date & Type Note Facility 09-01-2023 Procedure note [facility] 06-16-2023 History of Present illness Narrative Associated [...] weeks (around 06/30/2023). documented in this encounter [facility] 11-25-2022 Evaluation note Encounter Date Diagnosis [...] the Gitelman syndrome. Continue oral magnesium supplement. [employer] Other 04-21-2023 Evaluation note* Encounter Date Diagnosis Assessment Notes Treatment Notes Treatment Clinical Notes Aug, Hypomagnesemia (ICD-10 - E83.42) Aug, Hypokalemia (ICD-10 - E87.6) [facility] Other 07-06-2022 Evaluation note* Encounter Date Diagnosis Assessment Notes Treatment Notes Treatment Clinical Notes Nov, Leukocytosis (ICD-10 - D72.829) Nov, Hypomagnesemia (ICD-10 - E83.42) Nov, Hypokalemia (ICD-10 - E87.6) [employer] Other 07-04-2022 Chief complaint Narrative - Reported* [...] as needed [facility] Work Phone: [phone]) 497-878607-04-2022 Chief complaint Narrative - Reported* [place] [...] as needed [facility] Work Phone: [phone]) 827-378711-17-2021 Evaluation note* Encounter Date Diagnosis Assessment Notes [...] weeks to make sure it is resolved. [place] [employer] Other Evaluation [facility]No [facility] [employer] Other Evaluation note* Diagnosis Acute pain of right shoulder- Primary [facility] Diagnosis Infraspinatus strain, right, subsequent encounter- Primary [facility] Diagnosis Onset Date Resolution Status Abdominal pain acute [facility] Work Phone: Evaluation note* Diagnosis Onset Date Resolution Status Abdominal pain acute Gitelman syndrome acute Hypokalemia acute Hypomagnesemia acute [facility] Work Phone: Evaluation note* Diagnosis Onset Date Resolution Status Gitelman syndrome acute Hypokalemia acute Hypomagnesemia acute Gitelman syndrome acute Hypokalemia acute Hypomagnesemia acute Proteinuria acute [facility] Work Phone: Evaluation noteNo assessment information available [facility] Work Phone: History and physical note Author Carlos Johnson [facility] September 01, 2023 2:03pm Note Date/Time September 01, 2023 1:5 2pm [facility] [address] [place] [address] Gastroenterology H&P Signed Patient: Wood Horn MR#: [id number] : 1995 Acct:[id number] Age/Sex: 27 / M Adm Date: 4 Loc: Room: Type: [facility] Attending Dr: Carlos Johnson MD Copies [...] signed by Carlos Johnson MD> 09/01/23 1403 [facility] Work Phone: History general Narrative - [facility] [employer] Other History general Narrative - Reported* Type Description Date 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 Hospitalization History low potassium 2013 Hospitalization History low potassium 2018 Hospitalization History low potassium 2018 [facility] [employer] Other Reason for referral (narrative)* Consultation (Routine) - Pending Review Specialty Diagnoses / Procedures Referred By Sonny peters Referred To Contact Orthopaedic Surgery Diagnoses Infraspinatus strain, right, subsequent encounter Shaikh Alvarez MD [address] [place] [address] Rey Cruz MD [address] [place] [address] Referral ID Status Reason Start Date Expiration Date Visits Requested Visits Authorized [id number] Pending Review Specialty Services Required 06/22/2023 12/19/[address] [facility] Healthcare Summary Purpose Family History Unknown Family [...] Shaikh Alvarez MD [address] [place] [address] [facility] [address] [place] [address] Phone: [phone] Referral ID Status Reason Start Date Expiration Date V isits Requested Visits Authorized [id number] Pending Review 06/16/2023 12/13/2023 1 1 Specialty Diagnoses / Procedures Referred By Sonny peters Referred To Contact Physical Therapy Diagnoses Acute pain of right shoulder Procedures [place] OFFICE/OUTPATIENT NEW HIGH MDM 60 MINUTES Shaikh Alvarez MD [address] [place] [address] Edmundo Reina, PT [address] [address] Referral ID Status Reason Start Date Expiration Date Visits Requested Visits Authorized [id number] Pending Review Consult and Treat 06/16/2023 12/13/2023 [...] content) DATE CREATED AUTHOR 10/28/2017 [facility] DATE CREATED AUTHOR AUTHOR'S AZALIA ATFRANK 12/05/2021 [facility] DATE CREATED AUTHOR AUTHOR'S ORGANIZ ATION 06/28/2022 [facility] DATE CREATED AUTHOR AUTHOR'S ORGANIZ ATION 02/18/2024 [facility] DATE CREATED AUTHOR AUTHOR'S ORGANIZ ATION 04/12/2024 [facility] DATE CREATED AUTHOR AUTHOR'S ORGANIZ ATION 07/30/2024 [facility] EPIC REASON FOR VISIT [...] December 01, 2023 End: December 01, 2023 Psychological Assistant Relationship Specialty Start Date End Date Shaikh Alvarez MD [address] [facility] [place] [address] PCP - General Internal Medicine 06/16/23 Psychological Assistant Relationship Specialty Start Date End Date Shaikh Alvarez MD [address] [place] [address] PCP - General Internal Medicine 06/16/23 Team Status: Inactive Member Role Status Dates Nida Woods APRN JAILOR-C Primary Care Provider Active Start: July 18, 2023 End: July 18, 2023 Carlos Johnson MD Attending Provider Active Start: July 18, 2023 End: July 18, 2023 Team Status: Inactive Member Role Status Dates Carlos oJhnson MD Attending Provider Active Start: July 23, [...] Provider Act pratik Start: September 01, 2023 Psychological Assistant Relationship Specialty Start Date End Date Shaikh Alvarez MD [address] [place] [address] PCP - General Internal Medicine 06/16/23 Team Status: Active Member Role Status Dates Shahana Roe JAILOR-C Primary Care Provider Active Team Status: Active [...] BE BASED ON THE PRIMARY CLINICAL RECORDS. [employer] provides no warranty or guarantee of the accuracy or completeness of information in this document.
[2024-11-06 09:40] LABS: Albumin Level 3.6 g/dL (3.4-5.0); Anion Gap 11.9; Blood Urea Nitrogen 15.0 mg/dL (7.0-18.0); Calcium 9.1 mg/dL (8.5-10.1); Carbon Dioxide 33.1 mmol/L (21.0-32.0); Chloride 98 mmol/L (98-107); Estimated GFR (African America >60 (>=60 mL/min/1.73m^2); Estimated GFR (Non-African Ame >60 (>=60 mL/min/1.73m^2); Glucose 107 mg/dL (74-106); Magnesium 1.5 mg/dL (1.8-2.4); Potassium 3.0 mmol/L (3.5-5.1); Sodium 140 mmol/L (136-145)
== END 2024-11-06 07:31 | disposition home or self-care (01) ==
LOC: LAB 07:30
PROVIDERS: PCP Nurse Practitioner Family; Visit Provider Internal Medicine
DX: E83.42 Hypomagnesemia (principal); E87.6 Hypokalemia
CPT/HCPCS: 36415; 80069; 83735